=== PATIENT | male | born 1950 | race Caucasian/White ===

== ENCOUNTER 2019-08-21 00:14 | Day surgery (SDC) | payer MEDICARE, OTHER, SELFPAY ==
[2019-08-20 16:56] VITALS: BMI 20.9
[2019-08-21] VITALS (9 sets, daily range): BP systolic 81–145; BP diastolic 53–95; PULSE 46–74; RESP 14–22; TEMP 36.3; O2SAT 93–98; BMI 22.1
--- NOTE | 2019-08-21 07:00 | ECG_ITS ---
Measurements Intervals [place] Rate: 67 P: SD: 0 QRS: 12 QRSD: 89 T: 58 QT: 372 QTc: 394 Interpretive Statements ATRIAL FIBRILLATION BASELINE ARTIFACT- II, III, AVR, AVF, V3, V6 ABNORMAL ECG Electronically Signed On 08-21-2019 6:59:49 LIFE INSURANCE AGENT by Ulices Gao D.O.
[2019-08-21 07:26] LABS: Blood Urea Nitrogen 19 mg/dL (9-20); Calcium 9.3 mg/dL (8.4-10.2); Carbon Dioxide 27 mmol/L (22-30); Chloride 99 mmol/L (98-107); Estimated CRCL calculation 53 ml/min; Estimated Glomerular Filt Rate 60; Glucose 96 mg/dL (75-110); Magnesium 1.5 mg/dL (1.6-2.3); Potassium 4.1 mmol/L (3.4-5.0); Sodium 135 mmol/L (137-145)
--- NOTE | 2019-08-21 08:01 | SUR.PREOP ---
0700: ARRIVES TO [facility] 7 W/ AT SIDE FOR SCHEDULED JUANITO W/ CARDIOVERSION W/ DR. VILLELA. A&OX3, GAIT STEADY, DENIES CP OR SOB. ORIENTED TO ROOM AND PROCEDURE. QUESTIONS ANSWERED. PRE EKG COMPLETED AND SHOWS AFIB. IV STARTED, LABS SENT, VS OBTAINED, CONSENT SIGNED. WILL MONITOR. 0800: MAG LEVEL 1.5. CALLED TO DR. VILLELA BY KATIE Trevino RN. ORDERS RECEIVED TO REPLETE MAGNESIUM IV.
[2019-08-21] MEDS: MAGNESIUM SULF 2 GM/WATER 50ML 2 GM/50 ML BAG IVPB (08:03)
--- NOTE | 2019-08-21 08:17 | ECHO_ITS ---
Patient Info Name: Chilo Cross Age: 69 years : 1950 Gender: Male Ht: 72 in Wt: 163 lbs BSA: 1.94 m2 HR: 83 bpm BP: 115 / 83 mmHg Heart Rhythm: Atrial Fibrillation Technical Quality: Good Exam Date: 08/21/2019 9:15 AM Exam Location: [facility] Patient Status: Outpatient Admit Date: 08/21/2019 Staff Ordering Physician: Ulices Gao DO Steward/Stewardess [employer] Class: Frank Mack RDCS Attending Provider: Ulices Gao DO Referring Physician: Murray BORREGO; Exam Type: CA echo transesophageal Study Info Indications I48.1 - Persistent atrial fibrillation Complete two-dimensional, color flow and Doppler transesophageal study is performed. Agitated saline study performed. Contrast/Agitated Saline Contrast/Ag. Saline: Agitated Saline Amount: 9.00 ml Administered By: Patrizia Miramontes RN History/Risk Factors Atrial Fibrillation. Procedure Details Risks/benefits/alternative treatment discussed with patient and he gave informed consent. After conscious sedation was adequet with Fentanyl 50 mcg and Versed 2 mg IV, JUANITO probe advanced to posterior oropharynx and he swallowed probe without incident. After images were obtained and agitated saline administered to check interatrial septum, probe withdrawn. No blood noted on probe tip. Patient tolerated procedure well with no complications. Summary 1. Left ventricular systolic function is mildly reduced with an ejection fraction 45-50% by visual inspection. 2. Left ventricular chamber dimension is normal. 3. There is mildly increased left ventricular wall thickness. 4. Diastolic function is not assessed. 5. Right ventricular systolic function is mildly reduced. 6. Right ventricular chamber dimension is mildly enlarged. 7. Left atrial chamber dimension is moderately enlarged. 8. Right atrial chamber dimension is moderately enlarged. 9. Several bubbles crossed from right atrium to left atrium suggesting ASD or PFO. 10. There is mild aortic valve regurgitation. Left Ventricle Left ventricular systolic function is mildly reduced with an ejection fraction 45-50% by visual inspection. Diastolic function is not assessed. Left ventricular chamber dimension is normal. There is mildly increased left ventricular wall thickness. Right Ventricle Right ventricular systolic function is mildly reduced. Right ventricular chamber dimension is mildly enlarged. Left Atria Left atrial chamber dimension is moderately enlarged. Right Atria Right atrial chamber dimension is moderately enlarged. Atrial Septum Several bubbles crossed from right atrium to left atrium suggesting ASD or PFO. Atrial Appendage There is no mass visualized in the left atrial appendage. Aortic Valve The aortic valve is trileaflet. There is no aortic valve stenosis. There is mild aortic valve regurgitation. Pulmonic Valve There is no pulmonic regurgitation. Mitral Valve There is no mitral valve stenosis. There is no mitral valve regurgitation. Tricuspid Valve There is no tricuspid valve regurgitation. Pericardium/Pleural There is no pericardial effusion. Inferior Vena Cava IVC is not well seen.. Aorta The aortic root size at the sinus of Valsalva is normal. Report Signatures
--- NOTE | 2019-08-21 09:32 | SUR.OPER ---
0915 dr peterson here 0923 sedation started 0927 probe inserted 0932 probe removed.
--- NOTE | 2019-08-21 09:37 | ECG_ITS ---
Measurements Intervals [place] Rate: 46 P: 61 CA: 220 QRS: -15 QRSD: 97 T: 32 QT: 445 QTc: 390 Interpretive Statements SINUS BRADYCARDIA WITH FIRST DEGREE AV BLOCK ABNORMAL ECG Electronically Signed On 08-21-2019 10:57:57 HEAD OF DATA by Ulices Gao D.O.
--- NOTE | 2019-08-21 10:42 | WPDCARDVER ---
Cardioversion Cardioversion Date of procedure: 08/21/19 Procedure: DC Cardioversion Indications: Persistent symptomatic atrial fibrillation Sedation: Sedation with Fentanyl 50 mcg and Versed 5 mg IV given Findings: Risks/benefits/alternative treatment discussed with patient and he is agreeable to JUANITO/Cardioversion. Baseline HR 65-70 bpm in atrial fibrillation and BP 122/80 mmHg. After JUANITO performed which showed no INGA or LA thrombus, patient was adequately sedated. Defibrillator pads on anterior and posterior chest. 200 J biphasic synchronized energy administered and it restored sinus rhythm. Patient tolerated procedure well without complications. HR is 47-50 bpm and BP 125/70 mmHg. Conclusion: 1. Successful DC cardioversion from atrial fibrillation to sinus rhythm.
--- NOTE | 2019-08-21 11:06 | SUR.PHASEII ---
DETAILED WRITTEN AND VERBAL DISCHARGE INSTRUCTIONS REVIEWED W PATIENT AND AT BEDSIDE. BOTH VERBALIZE UNDERSTANDING.IV DC'D. PATIENT TAKEN OUT IN WHEELCHAIR.
== END 2019-08-21 11:09 | disposition home or self-care (01) ==
PROVIDERS: PCP Family Medicine; Visit Provider Internal Medicine Cardiovascular Disease
PROC: 5A2204Z Restoration of Cardiac Rhythm, Single (ICD-10-PCS; principal; 2019-08-21 08:00)
PROC: (CPT 93312; 2019-08-21 08:00)
DX: I48.19 Other persistent atrial fibrillation (principal); I35.1 Nonrheumatic aortic (valve) insufficiency; J44.9 Chronic obstructive pulmonary disease, unspecified; I50.22 Chronic systolic (congestive) heart failure; I13.0 Hypertensive heart and chronic kidney disease with heart failure and stage 1 through stage 4 chronic kidney disease, or unspecified chronic kidney disease; N18.3 Chronic kidney disease, stage 3 (moderate); E78.5 Hyperlipidemia, unspecified; I25.2 Old myocardial infarction; M81.0 Age-related osteoporosis without current pathological fracture; E55.9 Vitamin D deficiency, unspecified; F17.210 Nicotine dependence, cigarettes, uncomplicated; Z79.01 Long term (current) use of anticoagulants
CPT/HCPCS: 36415; 80048; 83735; 92960; 93005; 93312; 93320; 93325; J2250; J3010; J3475; J7040

== ENCOUNTER 2019-09-26 11:23 | Outpatient (CLI) | payer MEDICARE, SELFPAY ==
[2019-09-26 12:50] LABS: Prostate Specific Antigen 8.8 ng/mL (< OR = 4.0)
== END 2019-09-26 11:24 | disposition home or self-care (01) ==
LOC: CHSLAB 11:26
PROVIDERS: PCP Family Medicine; Visit Provider Urology
DX: R97.20 Elevated prostate specific antigen [PSA] (principal)
CPT/HCPCS: 36415; 84153

== ENCOUNTER 2019-10-12 14:34 | Outpatient (CLI) | payer MEDICARE, OTHER, SELFPAY ==
--- NOTE | ~2019-10-12 | US_ITS ---
EXAMINATION: US art doppler w press LE BI EXAM DATE: 10/12/2019 15:36 INDICATION: Bilateral leg claudication. Claudication at one block. TECHNIQUE: Segmental pressures and plethysmographic and Doppler waveforms of the brachial and lower e xtremity arteries were obtained. There is no prior study for comparison. FINDINGS: Right and left brachial artery pressures of 142 mm Hg and 148 mm Hg, respectively, are concordant (no rmal difference <= 30 mmHg). The right and left thigh-brachial pressure indices are 0.69, 0.70, resp ectively (normal > 1.2). RIGHT LEG: The ankle-brachial index (ABBIE) is 0.51 (normal >= 0.9-1). The great toe-brachial index (TBI) is: no right toe signal (normal >= 0.65). The lower extremity ratios, segmental pressure gradients as follows; Proximal superficial femoral artery:- 0.69 (102 mmHg). Distal superficial femoral artery: ----- 0.72 (107 mmHg). Popliteal: 0.57 (85 mmHg). Dorsalis pedis: 0.49 (72 mmHg). Posterior tibial: 0.51 (75 mmHg). (Normal gradients <= 20-30 mmHg between adjacent levels on the same leg or the same levels on the two legs). Arterial waveforms are monophasic. LEFT LEG: The ankle-brachial index (ABBIE) is 0.70 (normal >= 0.9-1). The great toe-brachial index (TBI) is 0.48 (normal >= 0.65). The lower extremity ratios, segmental pressure gradients as follows; Proximal superficial femoral artery:- 0.70 (104 mmHg). Distal superficial femoral artery: ----- 0.89 (132 mmHg). Popliteal: 0.93 (137 mmHg). Dorsalis pedis: 0.71 (105 mmHg). Posterior tibial: 0.75 (111 mmHg). (Normal gradients <= 20-30 mmHg between adjacent levels on the same leg or the same levels on the two legs). Arterial waveforms are biphasic. IMPRESSION: 1. Right ankle-brachial index 0.51, moderately decreased. 2. Left ankle-brachial index 0.75, mildly decreased. 3. Segmental pressures as above. Reviewed, dictated and finalized at location A. MULE WORKER
== END 2019-10-12 14:35 | disposition home or self-care (01) ==
LOC: ANHIMG 14:39
PROVIDERS: PCP Family Medicine; Visit Provider Family Medicine
DX: I73.9 Peripheral vascular disease, unspecified (principal)
CPT/HCPCS: 93923

== ENCOUNTER 2019-11-06 12:22 | Outpatient (CLI) | payer MEDICARE, SELFPAY ==
[2019-11-06 13:26] LABS: Prostate Specific Antigen 4.8 ng/mL (< OR = 4.0)
== END 2019-11-06 12:23 | disposition home or self-care (01) ==
PROVIDERS: PCP Urology; Visit Provider Urology
DX: R97.20 Elevated prostate specific antigen [PSA] (principal)
CPT/HCPCS: 36415; 84153

== ENCOUNTER 2020-02-20 08:59 | Outpatient (CLI) | payer MEDICARE, OTHER, SELFPAY ==
--- NOTE | 2020-02-25 13:56 | WPDPFTINT ---
PFT Interpretation PFT Interpretation: DOS: 02/20/2020 REQUESTING: Dr Carmona REASON FOR TESTING: shortness of breath PULMONARY FUNCTION TESTS Results are reliable and reproducible. Spirometry: FEV1 is 54%, moderately decreased. FVC is 81% normal. FEV1% is decreased consistent with airflow obstruction. No change with bronchodilator. Lung volumes: Not performed due to technical issue with gas supply in the PFT lab. Diffusion: DLCO 73%, mildly decreased. Flow volume loop: Severe scooping of the expiratory limb. IMPRESSION: Moderate obstructive ventilatory impairment without response to bronchodilator, mild diffusion impairment. Lung volumes were not obtained due to technical problems with the gas supply in the PFT lab. This pattern appears consistent with emphysema. Lack of response to bronchodilators should not preclude use if clinically indicated. Stephani Carmona MD
== END 2020-02-20 09:00 | disposition home or self-care (01) ==
PROVIDERS: PCP Family Medicine; Visit Provider Internal Medicine Critical Care Medicine
DX: J44.9 Chronic obstructive pulmonary disease, unspecified (principal); R94.2 Abnormal results of pulmonary function studies
CPT/HCPCS: 94060; 94729

== ENCOUNTER 2020-05-09 10:06 | Outpatient (CLI) | payer MEDICARE, SELFPAY ==
[2020-05-09 11:18] LABS: Alanine Aminotransferase 18 U/L (16-63); Albumin Level 3.7 g/dL (3.4-5.0); Alkaline Phosphatase 128 U/L (46-116); Anion Gap 7 mmol/L (8-16); Aspartate Amino Transferase 13 U/L (15-37); Bilirubin,Total 0.7 mg/dL (0.00-1.00); Blood Urea Nitrogen 15 mg/dL (7-18); Calcium 9.2 mg/dL (8.5-10.1); Carbon Dioxide 30 mmol/L (21-32); Chloride 101 mmol/L (98-108); Cholesterol 174 mg/dL (0-200); Estimated Glomerular Filt Rate 49; Glucose 98 mg/dL (70-99); HDL Direct 44 mg/dL (40-60); LDL Cholesterol Calculated 115 mg/dL (<130); Magnesium 1.7 mg/dL (1.8-2.4); Osmolality Calculated 286 mOsm/kg (285-295); Potassium 4.6 mmol/L (3.5-5.1); Sodium 138 mmol/L (136-145); Total Protein 6.5 g/dL (6.4-8.2); Triglycerides 76 mg/dL (0-150)
== END 2020-05-09 10:07 | disposition home or self-care (01) ==
LOC: CHSLAB 10:09
PROVIDERS: PCP Family Medicine; Visit Provider Internal Medicine Cardiovascular Disease
DX: E78.5 Hyperlipidemia, unspecified (principal)
CPT/HCPCS: 36415; 80053; 80061; 83735

== ENCOUNTER 2020-11-07 10:20 | Outpatient (CLI) | payer MEDICARE, OTHER, SELFPAY ==
--- NOTE | ~2020-11-07 | CT_ITS ---
EXAMINATION: CT lung screening DATE: 11/07/2020 10:37 INDICATION: Personal history of tobacco dependence TECHNIQUE: Computed tomography (CT) of the chest was performed without intravenous contrast. The dose -length product was 92.34 mGy-cm. Automated exposure control and iterative reconstruction technique w ere employed. COMPARISON: CT dated 03/21/2019 and 07/14/2016 FINDINGS: Severe emphysema with chronic scarring of the right upper lobe. No significant change to de nsely calcified 2 cm nodule right upper lobe, likely benign calcified granuloma. No significant pleur al or pericardial effusion. Heart size is normal. Mild atherosclerosis of the aorta and coronary [place]. The upper abdomen is unremarkable. There is scoliosis. Severe thoracolumbar spondylosis with mi ld chronic anterior wedging of multiple vertebral bodies. No new pulmonary nodules or masses. IMPRESSION: 1. Lung-RADS category 2: Benign appearance or behavior. Continue annual screening with noncontrast lo w-dose chest CT in 12 months. Reviewed, dictated and finalized at location B. IMPRESSION: 1. Lung-RADS category 2: Benign appearance or behavior. Continue annual screeni ng with noncontrast low-dose chest CT in 12 months.
== END 2020-11-07 10:21 | disposition home or self-care (01) ==
LOC: CHSIMG 10:24
PROVIDERS: PCP Family Medicine; Visit Provider Nurse Practitioner Family
DX: Z12.2 Encounter for screening for malignant neoplasm of respiratory organs (principal); Z87.891 Personal history of nicotine dependence
CPT/HCPCS: 71271

== ENCOUNTER 2020-12-21 09:32 | Emergency (ER) | payer MEDICARE, OTHER, SELFPAY ==
--- NOTE | ~2020-12-21 | XR_ITS ---
XR chest 2V DATE: 12/21/2020 10:37 INDICATION: Shortness of breath TECHNIQUE: 2 views, PA and lateral projections COMPARISON: 11/07/2020 CT lung screening 07/06/2018 PA and lateral chest FINDINGS: Severe emphysema is again noted. Right upper lobe scarring is again noted. Probably calcified 2 cm right upper lobe nodule, likely due to old granulomatous disease. Prominent central pulmonary artery suggesting pulmonary hypertension. No active pulmonary infiltrate or consolidation, pleural effusion or pulmonary vascular congestion or pneumothorax is evident. Diffuse osteopenia. Thoracolumbar scoliosis. IMPRESSION: Emphysema with pulmonary hypertension Chronic right upper lobe scarring No active disease or significant change since 07/06/2018 Reviewed, dictated and finalized at location A.
[2020-12-21 09:35] VITALS: BP 160/83; PULSE 100; RESP 17; TEMP 36.6; O2SAT 100
--- NOTE | 2020-12-21 10:02 | ECG_ITS ---
Measurements Intervals [place] Rate: 91 P: MT: 0 QRS: -26 QRSD: 104 T: 76 QT: 323 QTc: 398 Interpretive Statements ATRIAL FIBRILLATION ANTEROSEPTAL INFARCT, AGE INDETERMINATE CONSIDER INFERIOR INFARCT, AGE INDETERMINATE BASELINE ARTIFACT- I, II, III, V1-V3 ABNORMAL ECG Electronically Signed On 12-22-2020 7:44:46 CDT by Ulices Gao D.O.
[2020-12-21] MEDS: DEXAMETHASONE SOD PHOS INJ 4 MG/ML VIAL 10 MG IV PUSH (10:10)
[2020-12-21 10:13] VITALS: PULSE 88; RESP 17; O2SAT 100
[2020-12-21] MEDS: IPRATROPIUM 0.5 MG/ALBUTEROL SULFATE 2.5 MG AMPUL.NEB 3 ML INHALATION (10:13)
[2020-12-21 10:22] VITALS: PULSE 87; O2SAT 100
[2020-12-21 10:22] LABS: Basophils Absolute Auto 0.12 K/mm3 (0.00-0.10); Basophils Percent Auto 1.3 % (0.0-1.0); Eosinophils Absolute Auto 0.29 K/mm3 (0.02-0.50); Eosinophils Percent Auto 3.1 % (1.0-6.0); Hematocrit 44.5 % (37.0-46.0); Hemoglobin 14.5 g/dL (12.4-15.3); Immature Granulocyte Absolute 0.04 K/mm3 (0.00-0.00); Immature Granulocyte Percent A 0.4 % (0.0-0.0); Lymphocytes Absolute Auto 1.45 K/mm3 (1.10-4.50); Lymphocytes Percent Auto 15.3 % (18.0-42.0); Mean Corpuscular HGB Conc 32.6 g/dL (32.0-36.0); Mean Corpuscular Hemoglobin 29.4 pg (27.0-31.0); Mean Corpuscular Volume 90.3 fL (78.0-102.0); Mean Platelet Volume 9.7 fl (8.7-11.0); Monocytes Absolute Auto 0.61 K/mm3 (0.10-0.90); Monocytes Percent Auto 6.4 % (2.0-11.0); Neutrophils Percent Auto 73.5 % (50.0-70.0); Platelet Count Result 206 K/mm3 (150-420); Red Blood Count 4.93 M/mm3 (4.70-6.10); Red Cell Distribution Width 13.4 % (11.6-14.4); White Blood Count 9.5 K/mm3 (4.8-10.8)
[2020-12-21 10:28] VITALS: O2SAT 100
[2020-12-21 10:45] LABS: Alanine Aminotransferase 16 U/L (16-63); Albumin Level 3.3 g/dL (3.4-5.0); Alkaline Phosphatase 112 U/L (46-116); Anion Gap 8 mmol/L (8-16); Aspartate Amino Transferase 16 U/L (15-37); Bilirubin,Total 0.6 mg/dL (0.00-1.00); Blood Urea Nitrogen 13 mg/dL (7-18); Calcium 9.3 mg/dL (8.5-10.1); Carbon Dioxide 29 mmol/L (21-32); Chloride 100 mmol/L (98-108); Estimated Glomerular Filt Rate 56; Glucose 104 mg/dL (70-99); NT Pro B Type Natriuretic Pept 5834 pg/mL (0-125); Osmolality Calculated 284 mOsm/kg (285-295); Potassium 4.2 mmol/L (3.5-5.1); Sodium 137 mmol/L (136-145); Total Protein 6.5 g/dL (6.4-8.2)
--- NOTE | 2020-12-21 11:49 | ED.SOB ---
HPI - SOB/Dyspnea General Chief Complaint: Shortness of Breath/Dyspnea Stated Complaint: sob Time Seen by Provider: 12/21/20 09:45 Source: patient and family Mode of arrival: ambulatory History of Present Illness HPI Narrative: Patient presents with mild SOB, which has been ongoing since last am, starting about 2:30 am. This has been associated with inability to sleep. He has denied any shest pain with this or any epigastric pain. He has had episodes of what sounds like PND. Shortness of breath has been moderately severe, ongoing not fully relieved by resent steroids or nebulizers. THis shortness of breath has increased over a period of weeks he says. MD elicited complaint: shortness of breath Pertinent past history: COPD, congestive heart failure and other (atrial fibrillation) Onset (ago): hour(s) Timing: constant Severity: moderate Exacerbating factors: lying flat Relieving factors: oxygen Known history of: COPD Associated symptoms: denies other symptoms Treatment prior to arrival: bronchodilator Related Data Home Medications Medication Instructions Recorded Confirmed ibandronate [Boniva] 150 mg PO MONTHLY 06/24/19 12/21/20 Eliquis 5 mg PO DAILY 12/21/20 12/21/20 [id number] 1 inh INHALATION BID 12/21/20 12/21/20 [Trelegy Ellipta] pravastatin 10 mg PO DAILY 12/21/20 12/21/20 Allergies Allergy/AdvReac Type Severity Reaction Status Date / Time lisinopril Allergy Unknown Cough Verified 11/05/20 09:30 Review of Systems Constitutional: Constitutional: Reports no additional constitutional complaints Eyes: Eyes: Reports no additional eye complaints ENT: Reports system reviewed and no additional complaints, except as documented Cardiovascular: Cardiovascular: Reports no additional cardiovascular complaints Respiratory: Respiratory: Reports no additional respiratory complaints Gastrointestinal: Gastrointestinal: Reports no additional gastrointestinal complaints Genitourinary: Genitourinary: Reports no additional male genitourinary complaints Musculoskeletal: Musculoskeletal: Reports no additional musculoskeletal complaints Integumentary/Breasts: Skin/Breast: Reports system reviewed and no additional complaints, except as docu Neurologic: Reports system reviewed and no additional complaints, except as documented Psychiatric: Psychiatric: Reports no additional psychiatric complaints Endocrine: Endocrine: Reports no additional endocrine complaints Hematologic/Lymphatic: Hematologic/Lymphatic: Reports no additional hematologic/lymphatic complaints Allergic/Immunologic: Allergic/Immunologic: Reports no additional allergic/immunologic complaints [facility] Past Medical History Medical History A-fib Advanced COPD Chronic systolic heart failure Echocardiogram March 2019 demonstrated EF of 45-50% with moderate right atrial larger mild aortic valve and mitral valve regurgitation and [id number] tricuspid regurgitation CKD (chronic kidney disease) stage 3, GFR 30-59 ml/min Dyslipidemia Elevated PSA Elevated troponin Essential (primary) hypertension (11/02/16) Kyphosis (acquired) (postural) Due to osteoporosis Myocardial infarction Evidence of infarct on stress test from September 2018 without reversible ischemia EF of 37% Nicotine dependence, cigarettes, uncomplicated Osteoporosis Persistent atrial fibrillation Rectal polyp Vitamin D deficiency, unspecified Surgical History Surgical History History of vasectomy Hx of cataract surgery Hx of tonsillectomy Family History Family History Mother Patient's mother is Family history of malignant neoplasm Social History Social History Social History: He has 2 adult children who are healthy. He has smoked since he was 20 yea
[2020-12-21 12:17] VITALS: BP 137/83; PULSE 101; O2SAT 97
== END 2020-12-21 12:17 | disposition home or self-care (01) ==
PROVIDERS: Emergency Provider Emergency Medicine; PCP Family Medicine
DX: J44.9 Chronic obstructive pulmonary disease, unspecified (principal); I48.91 Unspecified atrial fibrillation; E78.5 Hyperlipidemia, unspecified; F17.200 Nicotine dependence, unspecified, uncomplicated
CPT/HCPCS: 36415; 71046; 80053; 83880; 84484; 85025; 93005; 94640; 96374; 99283; 99284; J1100

== ENCOUNTER → 2021-05-22 01:03 | Day surgery (SDC) | payer MEDICARE, OTHER, SELFPAY ==
[2021-05-21 12:43] VITALS: BMI 21.6
[2021-05-22] VITALS (10 sets, daily range): BP systolic 111–150; BP diastolic 68–92; PULSE 52–85; RESP 15–22; TEMP 36.2; O2SAT 94–100; BMI 21.0
[2021-05-22 09:30] LABS: Anion Gap 9 mmol/L (8-16); Blood Urea Nitrogen 21 mg/dL (9-20); Calcium 9.8 mg/dL (8.4-10.2); Carbon Dioxide 33 mmol/L (22-30); Chloride 99 mmol/L (98-107); Estimated CRCL calculation 48 ml/min; Estimated Glomerular Filt Rate 55; Glucose 105 mg/dL (65-110); INR 0.9; Potassium 3.7 mmol/L (3.4-5.0); Prothrombin Time 12.5 Seconds (11.1-14.7); Sodium 141 mmol/L (137-145)
[2021-05-22 09:34] LABS: Hematocrit 49.6 % (42.0-52.0); Mean Corpuscular HGB Conc 32.3 g/dl (32-36); Mean Corpuscular Hemoglobin 30.7 pg (26-34); Mean Platelet Volume 10.1 fl (7.4-10.4); Platelet Count Result 230 k/mm3 (150-375); Red Blood Count 5.22 M/mm3 (4.6-6.20); Red Cell Distribution Width 13.8 % (11.5-14.5); White Blood Count 11.7 K/mm3 (4.5-10.0)
--- NOTE | 2021-05-22 10:59 | WPDMODSED ---
Moderate Sedation Note-Pt Data Patient Data Diagnosis: Left ventricular systolic dysfunction peripheral vascular disease smoking persistent atrial fibrillation Present Complaint: exertional dyspnea Procedure to be performed/Plan: left heart catheterization /possible PCI Allergies Allergy/AdvReac Type Severity Reaction Status Date / Time lisinopril Allergy Unknown Cough Verified 05/04/21 13:24 Sulfa (Sulfonamide Allergy Cough Verified 05/21/21 12:37 Antibiotics) Home Medications Medication Instructions Recorded Confirmed Type albuterol sulfate 90 mcg/actuation 2 puff INHALATION QID PRN #18 gm 12/11/19 05/21/21 Rx aerosol inhaler tamsulosin 0.4 mg capsule 0.4 mg PO QAM 90 Days #90 cap 12/11/19 05/21/21 Rx Eliquis 5 mg PO DAILY 12/21/20 05/21/21 History pravastatin 10 mg PO DAILY 12/21/20 05/21/21 History ibandronate 150 mg tablet 150 mg PO MONTHLY #3 tablet 12/30/20 05/21/21 Rx ipratropium 0.5 mg-albuterol 3 mg 3 ml INHALATION QID PRN #90 ml 01/16/21 05/21/21 Rx (2.5 mg base)/3 mL nebulization soln omeprazole 40 mg capsule,delayed 40 mg PO DAILY #90 cap 03/28/21 05/21/21 Rx release fluticasone fur. 100 mcg-umeclid 1 inh INHALATION DAILY #60 ea 04/01/21 05/21/21 Rx 62.5 mcg-vilant 25 mcg inhalat.powder furosemide 20 mg tablet 20 mg PO QAM #90 tablet 04/24/21 05/21/21 Rx losartan 25 mg tablet 25 mg PO DAILY #30 tablet 05/04/21 05/21/21 Rx metoprolol succinate 50 mg 50 mg PO DAILY #30 tablet 05/04/21 05/21/21 Rx tablet,extended release 24 hr Current Medications: Active Medications Sodium Chloride (Normal Saline Iv) 500 mls @ 100 mls/hr IV CONT .Q5H AMEE Sedation/Anesthesia: No previous sedation/anesthesia problems (including family history). [facility] Past Medical History Medical History A-fib Advanced COPD Chronic systolic heart failure Echocardiogram March 2019 demonstrated EF of 45-50% with moderate right atrial larger mild aortic valve and mitral valve regurgitation and [id number]-[id number] tricuspid regurgitation CKD (chronic kidney disease) stage 3, GFR 30-59 ml/min Dyslipidemia Elevated PSA Elevated troponin Essential (primary) hypertension (11/02/16) Kyphosis (acquired) (postural) Due to osteoporosis Myocardial infarction Evidence of infarct on stress test from September 2018 without reversible ischemia EF of 37% Nicotine dependence, cigarettes, uncomplicated Osteoporosis Persistent atrial fibrillation Rectal polyp Vitamin D deficiency, unspecified Surgical History Surgical History History of vasectomy Hx of cataract surgery Hx of tonsillectomy Family History Family History Mother Patient's mother is Family history of malignant neoplasm Social History Social History Social History: He has 2 adult children who are healthy. He has smoked since he was 20 years old and continues to smoke about half a pack of cigarettes per day. He drinks alcohol in moderation. He denies any illicit substance use. His primary care physician is Dr. Liliana May Smoking packs per day: 0.5 Smoking cigarettes per day: 10.0 Years smoked: 50 Smoking pack-years: 25.00 Smoking status: Current every day smoker Tobacco type: cigarettes Second hand tobacco smoke exposure: Yes Additional smoking assessment comments: has smoked up to 3ppd in the , his average is 1.5ppd. Alcohol intake: current Drinks per week: 2 Alcohol use details: rare Substance use: never Substance use type: does not use Living arrangements: with family Gender identity (if verbalized by the patient): Male Sexual Orientation (if Verbalized by the Patient): Straight or Heterosexual Spiritual care concerns: No Agree to blood products: Yes Mo
--- NOTE | 2021-05-22 11:03 | WPDCARDPROC ---
Cardiac Cath Procedure Note Date of procedure:: 05/22/21 Performing physician:: Kofi Umanzor MD Indication:: left ventricular systolic dysfunction persistent atrial fibrillation JASSO/fatigue COPD with chronic / ongoing cigarette smoking Brief clinical history:: this is a 71-year-old man who has been found in the last couple of years to have left ventricular systolic dysfunction and also an episode of atrial fibrillation. An attempt to restore sinus rhythm last year was successful but did not sustain. He has been left in chronic atrial fibrillation since then. He had a nuclear stress test suggesting evidence of a previous NV resulting in recommendation left heart catheterization. Systemic anticoagulation was stopped last week Procedure Procedure performed:: left ventriculogram coronary angiogram PCI(ROGER) to circumflex Angio-Seal to right femoral artery Sedation/Medication given:: fentanyl 50 mg Versed 2 mg case start time 10:10 a.m. case end time 10:53 a.m. sedation provided by Lula Mercer RN, trained observer Access site:: right femoral artery Estimated blood loss:: 15-20 cc Procedure note:: patient was brought to the cardiac catheterization lab in a postabsorptive state the right femoral triangle was prepped and draped in the usual fashion. Anesthesia was provided with 1% lidocaine infiltrated locally. Using the modified Seldinger technique a 5 [place] vascular sheath was placed into the right common femoral artery after this left heart catheterization was carried out I used a 5 [place] angled pigtail catheter to engage and inject the left ventricle in the SONG projection and to document left-sided hemodynamics. Following this I used a 5 [place] JR4 catheter to engage and inject the right coronary artery. The 5 [place] FL4 catheter nor the FL 3.5 would engage the left main coronary satisfactorily. I was able to engage and inject the left coronary using a 5 [place] AL1 catheter. Following this the cineangiograms were reviewed. PCI of the circumflex was recommended and carried out as detailed below. Prior to PCI 5 [place] sheath was changed over a guidewire for a 6 [place]. Patient received aspirin, 600 mg of clopidogrel and was anticoagulated with bolus and infusion of Angiomax for procedural anticoagulation. PCI was then carried out as detailed below. Following PCI an angiogram was done of the femoral artery through the sheath after which a 6 [place] Angio-Seal device was deployed with a good hemostatic result. 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 Findings:: Hemodynamics: Central aortic pressure is 128/60 left ventricle 128 over 0 end-diastolic of 11. No significant gradient on pullback across the aortic valve. Left ventricle: The LV is moderately dilated there is severe global systolic hypocontractility in all segments the global ejection fraction I would visually estimate to be about 25%. The left main coronary artery is short but nicely patent the left anterior descending is a moderate caliber artery extending down to around the apex also providing some of the inferior wall. The LAD has minimal luminal irregularities but no significant disease. The circumflex is a medium caliber artery giving rise to the marginal branches. The trunk of the circumflex has high-grade atherosclerotic stenosis of 90% in the midportion up this area of disease also includes a 60-70% lesion proximal to that. Distally the circumflex is free of significant disease. The right coronary artery is moderate caliber and dominant to the posterior circulation the right coronary artery has minimal irregularities but angiographically no significant disease. Intervention: The left coronary artery was engaged using a 6 [place] AL1 guiding catheter. The 0.014 BMW coronary guidewire was used to wire the circumflex without difficulty. The lesion w
--- NOTE | 2021-05-22 16:06 | SUR.PHASEII ---
patient d/c instructions given. iv d/c tip intact. patient's groin is wnl. dressing d/c/i soft and no hematoma noted. patient is able to ambulate around the room with out any difficulty. patient verbalizes understanding. called to update and she will be picking him up.
== END | disposition home or self-care (01) ==
PROVIDERS: PCP Family Medicine; Visit Provider Specialist
PROC: 4A023N7 Measurement of Cardiac Sampling and Pressure, Left Heart, Percutaneous Approach (ICD-10-PCS; CPT 93452; principal; 2021-05-22 10:00)
PROC: (CPT 92928; 2021-05-22 10:00)
DX: I25.10 Atherosclerotic heart disease of native coronary artery without angina pectoris (principal); R94.39 Abnormal result of other cardiovascular function study; I48.20 Chronic atrial fibrillation, unspecified; J44.9 Chronic obstructive pulmonary disease, unspecified; I13.0 Hypertensive heart and chronic kidney disease with heart failure and stage 1 through stage 4 chronic kidney disease, or unspecified chronic kidney disease; I50.22 Chronic systolic (congestive) heart failure; N18.30 Chronic kidney disease, stage 3 unspecified; E78.5 Hyperlipidemia, unspecified; I25.2 Old myocardial infarction; I08.3 Combined rheumatic disorders of mitral, aortic and tricuspid valves; M81.0 Age-related osteoporosis without current pathological fracture; E55.9 Vitamin D deficiency, unspecified; M40.209 Unspecified kyphosis, site unspecified; Z79.01 Long term (current) use of anticoagulants; Z79.51 Long term (current) use of inhaled steroids; F17.210 Nicotine dependence, cigarettes, uncomplicated
CPT/HCPCS: 36415; 80048; 85027; 85610; 93458; A9270; C1725; C1760; C1769; C1874; C1887; C1894; C9600; G0269; J0583; J1644; J2250; J3010; J7040

== ENCOUNTER 2021-05-25 14:01 | Outpatient (CLI) | payer MEDICARE, OTHER, SELFPAY ==
--- NOTE | 2021-05-25 14:05 | ECG_ITS ---
Measurements Intervals [place] Rate: 87 P: SC: 0 QRS: 63 QRSD: 86 T: 86 QT: 333 QTc: 402 Interpretive Statements ATRIAL FIBRILLATION VENTRICULAR PREMATURE COMPLEXES INCOMPLETE RIGHT BUNDLE BRANCH BLOCK BORDERLINE T WAVE ABNORMALITY- HIGH LATERAL LEADS BASELINE ARTIFACT- AVR, AVL, AVF ABNORMAL ECG Electronically Signed On 05-25-2021 14:38:01 CDT by Ulices Gao D.O.
== END 2021-05-25 14:02 | disposition home or self-care (01) ==
LOC: CHSCARD 14:05
PROVIDERS: PCP Family Medicine; Visit Provider Internal Medicine Cardiovascular Disease
DX: I48.91 Unspecified atrial fibrillation (principal); I48.92 Unspecified atrial flutter
CPT/HCPCS: 93005

== ENCOUNTER 2021-06-22 12:30 | Inpatient (IN) | payer MEDICARE, OTHER, SELFPAY ==
[2021-06-22] VITALS (13 sets, daily range): BP systolic 82–128; BP diastolic 43–82; PULSE 86–110; RESP 16–20; TEMP 36.8–36.9; O2SAT 95–100; BMI 20.7
--- NOTE | ~2021-06-22 | CT_ITS ---
EXAMINATION: CTA chest PE protocol EXAM DATE: 06/22/2021 13:53 INDICATION: Shortness of breath with some chest pain and elevated d-dimer. Cardiac stents placed a mo nth ago. TECHNIQUE: Spiral CTA of the chest (pulmonary arteries) was performed with 100 cc Omnipaque 350 intr avenous contrast injection. Images were acquired during the pulmonary arterial phase. Coronal maxi mum intensity projection 3D-reconstructions were created by the technologist on dedicated workstation . Axial, coronal and sagittal reformatted images were reviewed. The dose-length product (DLP) for t his examination was 273.58 mGy-cm. The exposure was tailored according to patient size (auto mA exp osure control), and iterative reconstruction (ASIR) was used as additional dose reduction technique. Comparison is made to prior examination from 11/07/2020. FINDINGS: There is loss of right upper lobe superior segmental pulmonary arterial enhancement, likel y chronic. There are no intraluminal filling defects within the pulmonary emboli, no evidence of acut e pulmonary embolism. No thoracic aortic dissection. There is severe emphysema. There is new left upper lobe subsegmental opacity which is predominantly linear, could be atelectasis , acute or resolving infectious process. There is right upper lobe granuloma with regions of coarse calcification. Linear right apical scarring. There is severe emphysema. Chronic hyperinflation. There are no pleural or pericardial effusions. Tracheobronchial tree is patent. There is aortopulmonar y window lymph node measuring 2.4 x 1.3 cm (in November measured 1.9 x 0.9 cm). There is no pneumothora x. Heart normal in size. Upper abdomen is unremarkable. There is mild to moderate thoracic sp ondylosis without osteoblastic or osteolytic lesions identified. IMPRESSION: 1. Decreased right upper lobe superior segmental pulmonary arterial attenuation, a chronic finding w hich could be scarring or sequela from prior pulmonary embolism. 2. No pulmonary arterial filling defects, no acute pulmonary emboli. 3. Development of subsegmental left upper lobe airspace disease, could be atelectasis, acute or suba cute infection. 4. Development of mildly enlarged aortopulmonary window lymph node probably reactive. 5. Severe emphysema. Hyperinflation. 6. Scattered postinfectious residua. Reviewed, dictated and finalized at location B. UP OPERATOR TOOL IMPRESSION: 1. Decreased right upper lobe superior segmental pulmonary arterial attenuatio n, a chronic finding which could be scarring or sequela from prior pulmonary em bolism. 2. No pulmonary arterial filling defects, no acute pulmonary emboli. 3. Development of subsegmental left upper lobe airspace disease, could be atel ectasis, acute or subacute infection. 4. Development of mildly enlarged aortopulmonary window lymph node probably re active. 5. Severe emphysema. Hyperinflation. 6. Scattered postinfectious residua.
--- NOTE | ~2021-06-22 | XR_ITS ---
EXAMINATION: XR chest 1V portable DATE: 06/22/2021 12:58 INDICATION: Left chest pain. TECHNIQUE: A single frontal view of the chest was obtained on 2 radiographs. COMPARISON: Chest 2 views 12/21/2020, 10/10/2009, Chest CT 11/07/2020 FINDINGS: The lungs are hyperexpanded with lucencies, consistent with emphysema. There is a chronic c alcified nodule in right upper lobe that may be a hamartoma or granulomatous disease. There are chron ic airspace opacities in right upper lobe, consistent with scarring. There are worsened airspace opac ities in left upper lobe. No pleural effusion or pneumothorax. The heart size is normal. There are ol d healed left rib fractures. IMPRESSION: 1. Worsened airspace opacities in left upper lobe, consistent with atelectasis/scarring versus pneumo floyd. 2. Emphysema. 3. Stable scarring in right lung upper lobe. Reviewed, dictated and finalized at location A. ERTY INSURANCE INSPECTOR IMPRESSION: 1. Worsened airspace opacities in left upper lobe, consistent with atelectasis/ scarring versus pneumonia. 2. Emphysema. 3. Stable scarring in right lung upper lobe.
--- NOTE | 2021-06-22 12:40 | ECG_ITS ---
Measurements Intervals [place] Rate: 112 P: HI: 0 QRS: 5 QRSD: 83 T: 69 QT: 289 QTc: 396 Interpretive Statements ATRIAL FIBRILLATION WITH RAPID VENTRICULAR RESPONSE NONSPECIFIC T-WAVE ABNORMALITY- HIGH LATERAL LEADS BASELINE ARTIFACT- I, II, III, AVR, AVL, AVF, V1-V3 ABNORMAL ECG Electronically Signed On 06-22-2021 15:14:07 BURGLAR ALARM INSPECTOR by Ulices Gao D.O.
[2021-06-22 12:57] LABS: Basophils Absolute Auto 0.06 K/mm3 (0.00-0.10); Basophils Percent Auto 0.4 % (0.0-1.0); Eosinophils Absolute Auto 0.07 K/mm3 (0.02-0.50); Eosinophils Percent Auto 0.4 % (1.0-6.0); Hematocrit 41.1 % (37.0-46.0); Hemoglobin 13.6 g/dL (12.4-15.3); Immature Granulocyte Absolute 0.08 K/mm3 (0.00-0.00); Immature Granulocyte Percent A 0.5 % (0.0-0.0); Lymphocytes Absolute Auto 1.16 K/mm3 (1.10-4.50); Lymphocytes Percent Auto 6.9 % (18.0-42.0); Mean Corpuscular HGB Conc 33.1 g/dL (32.0-36.0); Mean Corpuscular Hemoglobin 31.1 pg (27.0-31.0); Mean Corpuscular Volume 93.8 fL (78.0-102.0); Mean Platelet Volume 9.9 fl (8.7-11.0); Monocytes Absolute Auto 1.27 K/mm3 (0.10-0.90); Monocytes Percent Auto 7.5 % (2.0-11.0); Neutrophils Absolute Auto 14.2 K/mm3 (1.7-7.2); Neutrophils Percent Auto 84.3 % (50.0-70.0); Platelet Count Result 220 K/mm3 (150-420); Red Blood Count 4.38 M/mm3 (4.70-6.10); Red Cell Distribution Width 13.5 % (11.6-14.4); White Blood Count 16.8 K/mm3 (4.8-10.8)
--- NOTE | 2021-06-22 13:00 | PC.NURSE ---
Pt BP noted to be low. Pt denies any symptoms or chest pain at this time.
[2021-06-22 13:13] LABS: D Dimer 0.52 mg/L (0.19-0.50)
[2021-06-22 13:14] LABS: Partial Thromboplastin Time 32.5 SEC (23.90-30.70)
--- NOTE | 2021-06-22 13:14 | PC.NURSE ---
[place] from lab called with D-Dimer of 0.52. Dr. Oro notified.
[2021-06-22 13:15] LABS: INR 1.2
[2021-06-22 13:20] LABS: Alanine Aminotransferase 23 U/L (16-63); Albumin Level 3.1 g/dL (3.4-5.0); Alkaline Phosphatase 116 U/L (46-116); Anion Gap 10 mmol/L (8-16); Aspartate Amino Transferase 21 U/L (15-37); Bilirubin,Total 1.4 mg/dL (0.00-1.00); Blood Urea Nitrogen 21 mg/dL (7-18); Calcium 8.6 mg/dL (8.5-10.1); Carbon Dioxide 27 mmol/L (21-32); Chloride 99 mmol/L (98-108); Estimated CRCL calculation 39 ml/min; Estimated Glomerular Filt Rate 43; Glucose 108 mg/dL (70-99); Lipase 81 U/L (73-393); NT Pro B Type Natriuretic Pept 2537 pg/mL (0-125); Osmolality Calculated 286 mOsm/kg (285-295); Potassium 4.2 mmol/L (3.5-5.1); Sodium 136 mmol/L (136-145); Total Protein 6.7 g/dL (6.4-8.2)
[2021-06-22] MEDS: SODIUM CHLORIDE 0.9% IV 1,000 ML 999 ML IV CONT (13:20)
[2021-06-22 13:23] LABS: Troponin I 12.2 ng/L (0.00-60.4)
[2021-06-22 14:05] LABS: Lactic Acid Reflex 1.6 mmol/L (0.4-2.0)
--- NOTE | 2021-06-22 14:07 | ED.CHESTPAIN ---
HPI - Chest Pain General Chief Complaint: Chest Pain Stated Complaint: CHEST PAIN Source: patient Mode of arrival: wheelchair Limitations: no limitations History of Present Illness HPI narrative: this is a 71-year-old gentleman that presents after he was on a treadmill and cardiac rehab and felt a sharp chest pain the left side of his chest that he described as sharp pain with some mild shortness of breath during work and treadmill with no diaphoresis no nausea vomiting, the patient was brought over immediately to the ER and while at rest his chest discomfort had gone down to about a 2/10. Patient has a history of CHF with a echo performed back in showed systolic dysfunction with an ejection fraction of 30%, recently had cardiac catheterization on May 22, 2021 which showed stenosis of the cervical circumflex artery and was stented. Patient with a history of a COPD is a current smoker low states that he has noted, history of atrial fibrillation hyperlipidemia hypertension. MD complaint: chest pain and chest discomfort Pertinent past history: coronary artery disease and LEGISLATIVE ADVOCATE Onset (ago): minute(s) Timing of current episode: now resolved Onset: during exertion Pain location: left chest Pain radiation: none Pain scale (0-10): 8 ( now down to about 1 out of 10 to an ache at 0/10) Quality: aching Relieving factors: rest Exacerbating factors: exertion Context: recent illness Related Data Home Medications Medication Instructions Recorded Confirmed pravastatin 10 mg PO DAILY 12/21/20 06/19/21 apixaban 5 mg tablet 5 mg PO BID 05/25/21 06/19/21 Allergies Allergy/AdvReac Type Severity Reaction Status Date / Time lisinopril Allergy Unknown Cough Verified 06/22/21 12:55 Sulfa (Sulfonamide Allergy Cough Verified 06/22/21 12:55 Antibiotics) Review of Systems Review of Systems: All systems reviewed & are unremarkable except as noted in HPI and below PMFSH Past Medical History Medical History A-fib Advanced COPD Chronic systolic heart failure Echocardiogram March 2019 demonstrated EF of 45-50% with moderate right atrial larger mild aortic valve and mitral valve regurgitation and [id number] tricuspid regurgitation CKD (chronic kidney disease) stage 3, GFR 30-59 ml/min Dyslipidemia Elevated PSA Elevated troponin Essential (primary) hypertension (11/02/16) Kyphosis (acquired) (postural) Due to osteoporosis Myocardial infarction Evidence of infarct on stress test from September 2018 without reversible ischemia EF of 37% Nicotine dependence, cigarettes, uncomplicated Osteoporosis Persistent atrial fibrillation Rectal polyp Vitamin D deficiency, unspecified Surgical History Surgical History History of vasectomy Hx of cataract surgery Hx of tonsillectomy Family History Family History Mother Patient's mother is Family history of malignant neoplasm Social History Social History Social History: He has 2 adult children who are healthy. He has smoked since he was 20 years old and continues to smoke about half a pack of cigarettes per day. He drinks alcohol in moderation. He denies any illicit substance use. His primary care physician is Dr. Liliana May Smoking packs per day: 0.5 Smoking cigarettes per day: 10.0 Years smoked: 50 Smoking pack-years: 25.00 Smoking status: Current every day smoker Tobacco type: cigarettes Second hand tobacco smoke exposure: Yes Additional smoking assessment comments: has smoked up to 3ppd in the , his average is 1.5ppd. Alcohol intake: current Drinks per week: 2 Alcohol use details: rare Substance use: never Substance use type: does not use Gender identity (if verbalized by the patient): Male Sexual Orien
--- NOTE | 2021-06-22 14:23 | PC.NURSE ---
Floor and registration notified of pt admission status. Room assignment received - .
--- NOTE | 2021-06-22 15:05 | PC.NURSE ---
Phone report called to KIA Rubio on floor.
--- NOTE | 2021-06-22 15:10 | ADMGEN ---
This patient, Chilo Cross, was admitted to 2nd Floor Room 203-2 for pneumonia and chest pain. Patient/family oriented to hospital policies and general routines including ID bracelet, bed and alarms, visiting hours, pain management, procedures, bathroom and other care routines, personal items, smoking policy, room service/diet, and visiting hours. Information on how to activate the Rapid Response Team has been discussed. Patient/Family are encouraged to report perceived risks to care and to ask questions if they do not understand what they are told or what they should do.
[2021-06-22] MEDS: IPRATROPIUM 0.5 MG/ALBUTEROL SULFATE 2.5 MG AMPUL.NEB 3 ML INHALATION (16:20)
[2021-06-22 19:46] LABS: Troponin I 13.4 ng/L (0.00-60.4)
[2021-06-22] MEDS: APIXABAN 2.5 MG TABLET 5 MG PO (20:24)
[2021-06-22] MEDS: PANTOPRAZOLE 40 MG TABLET PO (20:24)
--- NOTE | 2021-06-22 20:30 | PC.NURSE ---
Patient BP registered 86/59 with dynomat. taken manually registered as 102/60. Denies light headedness or dizziness.
--- NOTE | 2021-06-22 20:35 | PC.NURSE ---
Patient up ad gregorio in room . Denies chest pain at this time. Alert and oriented x3
--- NOTE | 2021-06-22 21:57 | PC.NURSE ---
Patient provided bed time snack.
[2021-06-22 23:42] LABS: Troponin I 13.6 ng/L (0.00-60.4)
[2021-06-23] VITALS (14 sets, daily range): BP systolic 82–116; BP diastolic 48–68; PULSE 72–103; RESP 18–20; TEMP 36.2–37.4; O2SAT 93–100
--- NOTE | 2021-06-23 03:20 | PC.NURSE ---
called doctor to inform of episode of sinus tach while sleeping-HR up to 12. Also reported low BP result
[2021-06-23] MEDS: IPRATROPIUM 0.5 MG/ALBUTEROL SULFATE 2.5 MG AMPUL.NEB 3 ML INHALATION ×3 (03:51→17:52)
[2021-06-23 05:30] LABS: Basophils Absolute Auto 0.08 K/mm3 (0.00-0.10); Basophils Percent Auto 0.6 % (0.0-1.0); Eosinophils Absolute Auto 0.48 K/mm3 (0.02-0.50); Eosinophils Percent Auto 3.8 % (1.0-6.0); Hematocrit 37.7 % (37.0-46.0); Hemoglobin 12.2 g/dL (12.4-15.3); Immature Granulocyte Absolute 0.06 K/mm3 (0.00-0.00); Immature Granulocyte Percent A 0.5 % (0.0-0.0); Lymphocytes Absolute Auto 1.31 K/mm3 (1.10-4.50); Lymphocytes Percent Auto 10.4 % (18.0-42.0); Mean Corpuscular HGB Conc 32.4 g/dL (32.0-36.0); Mean Corpuscular Hemoglobin 30.4 pg (27.0-31.0); Monocytes Absolute Auto 1.12 K/mm3 (0.10-0.90); Monocytes Percent Auto 8.9 % (2.0-11.0); Neutrophils Absolute Auto 9.5 K/mm3 (1.7-7.2); Neutrophils Percent Auto 75.8 % (50.0-70.0); Platelet Count Result 206 K/mm3 (150-420); Red Blood Count 4.01 M/mm3 (4.70-6.10); Red Cell Distribution Width 13.6 % (11.6-14.4); White Blood Count 12.6 K/mm3 (4.8-10.8)
[2021-06-23 05:54] LABS: Alanine Aminotransferase 22 U/L (16-63); Albumin Level 2.8 g/dL (3.4-5.0); Alkaline Phosphatase 108 U/L (46-116); Anion Gap 9 mmol/L (8-16); Aspartate Amino Transferase 16 U/L (15-37); Blood Urea Nitrogen 20 mg/dL (7-18); Calcium 8.6 mg/dL (8.5-10.1); Carbon Dioxide 27 mmol/L (21-32); Chloride 102 mmol/L (98-108); Estimated CRCL calculation 43 ml/min; Estimated Glomerular Filt Rate 49; Glucose 104 mg/dL (70-99); NT Pro B Type Natriuretic Pept 2271 pg/mL (0-125); Osmolality Calculated 288 mOsm/kg (285-295); Potassium 3.7 mmol/L (3.5-5.1); Sodium 138 mmol/L (136-145); Total Protein 6.1 g/dL (6.4-8.2)
--- NOTE | 2021-06-23 07:47 | ECG_ITS ---
Measurements Intervals [place] Rate: 90 P: DC: 0 QRS: 35 QRSD: 88 T: 21 QT: 332 QTc: 406 Interpretive Statements ATRIAL FIBRILLATION BASELINE ARTIFACT- I, II, III, AVR, AVL, AVF ABNORMAL ECG Electronically Signed On 06-23-2021 8:19:25 PARK GUIDE by Ulices Gao D.O.
--- NOTE | 2021-06-23 08:01 | PM.IMHP ---
H&P: HPI History of Present Illness Date/Time: 06/23/21 08:01 this is a 71-year-old male who presented to our emergency department with complaints of chest discomfort. Patient has a past medical history of A. fib, COPD, congestive heart failure, CKD, dyslipidemia, elevated PSA, elevated troponin, hypertension, ID back in 2019, nicotine dependent, osteoporosis, A. fib, and vitamin D deficiency. Patient is a cardiac rehab patient and recently had a cardiac cath with stent on . while he was on the treadmill he started experiencing chest discomfort underneath his left nipple line that he describes as a sharp pain. Patient also experience shortness of breath but he has chronic shortness of breath he did note that it had worsened. patient states that the pain would come and go and occurred while he was on the treadmill. According to the patient , the cardiac rehab nurse called over to Dr. Gao who is his physicist nuclear who instructed her to send the patient to our ED. patient notes that he feels fatigue with lower extremity weakness he also feels as if his shortness of breath has worsened he will remain for an additional day for treatment of pneumonia. WBCs 16.8, hemoglobin 13.6, hematocrit 41.1, platelets 220, sodium 136, potassium 24.2, BUN 21, creatinine 1.59, glucose 108, lactic acid 1.6, troponin 12.2, liver function within normal limits, D-dimer 0.52, chest x-ray indicates pneumonia, CTA for PE. Patient will be treated for pneumonia and COPD. <ANKITA Davis - Last Filed: 06/23/21 14:11> Chief Complaint: Shortness of breath and chest pain <ANKITA Davis - Last Filed: 06/23/21 14:11> Review of Systems Review of Systems: A 14 organ system Review of Systems was performed and pertinent positives included in the HPI, otherwise remaining ROS is negative. <ANKITA Davis - Last Filed: 06/23/21 14:11> [facility] Past Medical History Medical History: Medical History A-fib Advanced COPD Chronic systolic heart failure Echocardiogram March 2019 demonstrated EF of 45-50% with moderate right atrial larger mild aortic valve and mitral valve regurgitation and [id number] tricuspid regurgitation CKD (chronic kidney disease) stage 3, GFR 30-59 ml/min Dyslipidemia Elevated PSA Elevated troponin Essential (primary) hypertension (11/02/16) Kyphosis (acquired) (postural) Due to osteoporosis Myocardial infarction Evidence of infarct on stress test from September 2018 without reversible ischemia EF of 37% Nicotine dependence, cigarettes, uncomplicated Osteoporosis Persistent atrial fibrillation Rectal polyp Vitamin D deficiency, unspecified <ANKITA Davis - Last Filed: 06/23/21 14:11> Surgical History Surgical History: Surgical History History of vasectomy Hx of cataract surgery Hx of tonsillectomy <ANKITA Davis - Last Filed: 06/23/21 14:11> Family History Family History: Family History Mother Patient's mother is Family history of malignant neoplasm <ANKITA Davis - Last Filed: 06/23/21 14:11> Social History Social History: Social History Social History: He has 2 adult children who are healthy. He has smoked since he was 20 years old and continues to smoke about half a pack of cigarettes per day. He drinks alcohol in moderation. He denies any illicit substance use. His primary care physician is Dr. Liliana May Smoking packs per day: 0.5 Smoking cigarettes per day: 10.0 Years smoked: 50 Smoking pack-years: 25.00 Smoking status: Current every day smoker Tobacco type: cigarettes Second hand tobacco smoke exposure: Yes Additional smoking assessment comments: has smoked up to 3ppd in the , his av
[2021-06-23 08:10] LABS: Troponin I 12.2 ng/L (0.00-60.4)
[2021-06-23] MEDS: methylPREDNISolone SOD SUCC 125 MG VIAL 60 MG IV PUSH ×2 (08:45→21:00)
[2021-06-23] MEDS: NICOTINE (*PBKC) 21 MG PATCH 1 PATCH TRANSDERM (08:45)
[2021-06-23] MEDS: TAMSULOSIN HCL 0.4 MG CAPSULE PO (08:46)
[2021-06-23] MEDS: PANTOPRAZOLE 40 MG TABLET PO ×2 (08:46→20:30)
[2021-06-23] MEDS: CLOPIDOGREL BISULFATE 75 MG TABLET PO (08:46)
[2021-06-23] MEDS: APIXABAN 2.5 MG TABLET 5 MG PO ×2 (08:46→20:29)
[2021-06-23] MEDS: PRAVASTATIN SODIUM 10 MG TABLET PO (08:47)
[2021-06-23] MEDS: BENZONATATE 100 MG CAPSULE 200 MG PO ×3 (09:18→17:51)
[2021-06-23] MEDS: guaiFENesin 12 HR 600 MG TABCR PO ×2 (09:18→20:30)
[2021-06-23] MEDS: FLUTICASONE/UMECLIDIN/VILANTER 100-62.5-25 MCG ELLIPTA 1 PUFF INHALATION (09:19)
[2021-06-23] MEDS: traMADol HCL (*CRX) 25 MG TABLET PO ×2 (09:22→20:28)
[2021-06-23 15:20] LABS: SARS-CoV-2 RNA PCR Negative (Negative)
[2021-06-23] MEDS: traZODone HCL 50 MG TABLET PO (20:30)
[2021-06-24] VITALS (11 sets, daily range): BP systolic 104–132; BP diastolic 61–69; PULSE 60–116; RESP 16–19; TEMP 36.6–36.7; O2SAT 93–99
[2021-06-24] MEDS: IPRATROPIUM 0.5 MG/ALBUTEROL SULFATE 2.5 MG AMPUL.NEB 3 ML INHALATION ×3 (00:23→12:20)
[2021-06-24 05:25] LABS: Alanine Aminotransferase 23 U/L (16-63); Albumin Level 2.7 g/dL (3.4-5.0); Alkaline Phosphatase 103 U/L (46-116); Anion Gap 10 mmol/L (8-16); Aspartate Amino Transferase 18 U/L (15-37); Bilirubin,Total 0.3 mg/dL (0.00-1.00); Blood Urea Nitrogen 17 mg/dL (7-18); Calcium 8.6 mg/dL (8.5-10.1); Carbon Dioxide 26 mmol/L (21-32); Chloride 102 mmol/L (98-108); Estimated CRCL calculation 49 ml/min; Estimated Glomerular Filt Rate 55; Glucose 176 mg/dL (70-99); Magnesium 1.5 mg/dL (1.8-2.4); NT Pro B Type Natriuretic Pept 3822 pg/mL (0-125); Osmolality Calculated 291 mOsm/kg (285-295); Potassium 3.9 mmol/L (3.5-5.1); Sodium 138 mmol/L (136-145)
[2021-06-24] MEDS: MAGNESIUM SULF 4 GM/WATER100ML 4 GM/100 ML BAG IVPB (07:51)
[2021-06-24] MEDS: PANTOPRAZOLE 40 MG TABLET PO (09:00)
[2021-06-24] MEDS: BENZONATATE 100 MG CAPSULE 200 MG PO (09:00)
[2021-06-24] MEDS: guaiFENesin 12 HR 600 MG TABCR PO (09:00)
[2021-06-24] MEDS: FLUTICASONE/UMECLIDIN/VILANTER 100-62.5-25 MCG ELLIPTA 1 PUFF INHALATION (09:00)
[2021-06-24] MEDS: PRAVASTATIN SODIUM 10 MG TABLET PO (09:01)
[2021-06-24] MEDS: CLOPIDOGREL BISULFATE 75 MG TABLET PO (09:01)
[2021-06-24] MEDS: APIXABAN 2.5 MG TABLET 5 MG PO (09:01)
[2021-06-24] MEDS: methylPREDNISolone SOD SUCC 125 MG VIAL 60 MG IV PUSH (09:01)
[2021-06-24] MEDS: TAMSULOSIN HCL 0.4 MG CAPSULE PO (09:01)
[2021-06-24] MEDS: NICOTINE (*PBKC) 21 MG PATCH 1 PATCH TRANSDERM (09:02)
--- NOTE | 2021-06-24 09:27 | P.DS_ITS ---
DS: Admitting Diagnosis Discharge Date 06/24/2021 <ANKITA Davis - Last Filed: 06/24/21 11:14> Admitting Diagnosis Pneumonia and COPD <ANKITA Davis - Last Filed: 06/24/21 11:14> DS: Discharge Diagnosis Discharge Diagnosis (1) Pneumonia: Qualifiers: Laterality: left Lung location: upper lobe of lung Pneumonia type: due to unspecified organism Qualified Code(s): J18.9 - Pneumonia, unspecified organism <ANKITA Davis - Last Filed: 06/24/21 11:14> Code(s): J18.9 - Pneumonia, unspecified organism <ANKITA Davis - Last Filed: 06/24/21 11:14> Status: Acute <ANKITA Davis - Last Filed: 06/24/21 11:14> Assessment and Plan: * Patient CTA indicates left upper lobe pneumonia * Patient started on azithromycin and Rocephin changed to cefepime and vancomycin due to possible hospital-acquired pneumonia patient recently discharged from hospital * WBCs 16.8>12.6>12.3 * Blood culture pending * Continue breathing treatments * Continue oxygen as needed * Continue Tessalon Perles with guaifenesin * Continue Solu-Medrol Patient was discharged with prednisone, Tessalon Perles, doxycycline and continue breathing treatments <ANKITA Davis - Last Filed: 06/24/21 11:14> (2) Chest pain: Code(s): R07.9 - Chest pain, unspecified <ANKITA Davis - Last Filed: 06/24/21 11:14> Status: Acute <ANKITA Davis - Last Filed: 06/24/21 11:14> Assessment and Plan: * Not believed to be cardiac related * Hknrfvso45.2>13.4>13.6 * EKG A. fib with RVR heart rate of 112 repeat A. fib heart rate of 90 * Continue telemetry Discharge follow-up with manager personnel selection <ANKITA Davis - Last Filed: 06/24/21 11:14> (3) CKD (chronic kidney disease) stage 3, GFR 30-59 ml/min: Code(s): N18.3 - Chronic kidney disease, stage 3 (moderate) <ANKITA Davis - Last Filed: 06/24/21 11:14> Status: Acute <ANKITA Davis - Last Filed: 06/24/21 11:14> Assessment and Plan: * Acute on chronic at baseline * Creatinine 1.59>1.43 >1.30 improving baseline appears to be between 1.20 and 1.30 * Avoid nephrotoxic agent * Renal dose all medication <ANKITA Davis - Last Filed: 06/24/21 11:14> (4) Elevated d-dimer: Code(s): R79.89 - Other specified abnormal findings of blood chemistry <Bhakti Whaley ANKITA - Last Filed: 06/24/21 11:14> Status: Acute <Bhakti Whaley ANKITA - Last Filed: 06/24/21 11:14> Assessment and Plan: * D-dimer 0.52 * CTA indicates prior PE no acute PE indicated <ANKITA Davis - Last Filed: 06/24/21 11:14> (5) Essential (primary) hypertension: Onset Date: 11/02/16 <Bhakti Whaley ANKITA - Last Filed: 06/24/21 11:14> Code(s): I10 - Essential (primary) hypertension <Bhakti Whaley ANKITA - Last Filed: 06/24/21 11:14> Status: Acute <Bhakti Whaley ANKITA - Last Filed: 06/24/21 11:14> Assessment and Plan: * Stable * Continue losartan, metoprolol * Vital signs as ordered * Will adjust medication as needed <Bhakti Whaley ANKITA - Last Filed: 06/24/21 11:14> (6) CAD (coronary artery disease): Code(s): I25.10 - Atherosclerotic heart disease of [place] coronary artery without angina pectoris <Bhakti Whaley ANKITA - Last Filed: 06/24/21 11:14> Status: Acute <Bhakti Whaley, LEAD RAMP AGENT-C - Last Filed: 06/24/21 11:14> Assessment and Plan: * Continue
--- NOTE | 2021-06-24 09:27 | PM.DS ---
DS: Admitting Diagnosis Discharge Date 06/24/2021 <ANKITA Davis - Last Filed: 06/24/21 11:14> Admitting Diagnosis Pneumonia and COPD <ANKITA Davis - Last Filed: 06/24/21 11:14> DS: Discharge Diagnosis Discharge Diagnosis (1) Pneumonia: Qualifiers: Laterality: left Lung location: upper lobe of lung Pneumonia type: due to unspecified organism Qualified Code(s): J18.9 - Pneumonia, unspecified organism <ANKITA Davis - Last Filed: 06/24/21 11:14> Code(s): J18.9 - Pneumonia, unspecified organism <ANKITA Davis - Last Filed: 06/24/21 11:14> Status: Acute <ANKITA Davis - Last Filed: 06/24/21 11:14> Assessment and Plan: Patient CTA indicates left upper lobe pneumonia Patient started on azithromycin and Rocephin changed to cefepime and vancomycin due to possible hospital-acquired pneumonia patient recently discharged from hospital WBCs 16.8>12.6>12.3 Blood culture pending Continue breathing treatments Continue oxygen as needed Continue Tessalon Perles with guaifenesin Continue Solu-Medrol Patient was discharged with prednisone, Tessalon Perles, doxycycline and continue breathing treatments <ANKITA Davis - Last Filed: 06/24/21 11:14> (2) Chest pain: Code(s): R07.9 - Chest pain, unspecified <ANKITA Davis - Last Filed: 06/24/21 11:14> Status: Acute <ANKITA Davis - Last Filed: 06/24/21 11:14> Assessment and Plan: Not believed to be cardiac related Mzteymzm06.2>13.4>13.6 EKG A. fib with RVR heart rate of 112 repeat A. fib heart rate of 90 Continue telemetry Discharge follow-up with title i teacher <ANKITA Davis - Last Filed: 06/24/21 11:14> (3) CKD (chronic kidney disease) stage 3, GFR 30-59 ml/min: Code(s): N18.3 - Chronic kidney disease, stage 3 (moderate) <ANKITA Davis - Last Filed: 06/24/21 11:14> Status: Acute <ANKITA Davis - Last Filed: 06/24/21 11:14> Assessment and Plan: Acute on chronic at baseline Creatinine 1.59>1.43 >1.30 improving baseline appears to be between 1.20 and 1.30 Avoid nephrotoxic agent Renal dose all medication <ANKITA Davis - Last Filed: 06/24/21 11:14> (4) Elevated d-dimer: Code(s): R79.89 - Other specified abnormal findings of blood chemistry <ANKITA Davis - Last Filed: 06/24/21 11:14> Status: Acute <ANKITA Davis - Last Filed: 06/24/21 11:14> Assessment and Plan: D-dimer 0.52 CTA indicates prior PE no acute PE indicated <ANKITA Davis - Last Filed: 06/24/21 11:14> (5) Essential (primary) hypertension: Onset Date: 11/02/16 <ANKITA Davis - Last Filed: 06/24/21 11:14> Code(s): I10 - Essential (primary) hypertension <ANKITA Davis - Last Filed: 06/24/21 11:14> Status: Acute <ANKITA Davis - Last Filed: 06/24/21 11:14> Assessment and Plan: Stable Continue losartan, metoprolol Vital signs as ordered Will adjust medication as needed <ANKITA Davis - Last Filed: 06/24/21 11:14> (6) CAD (coronary artery disease): Code(s): I25.10 - Atherosclerotic heart disease of [place] coronary artery without angina pectoris <Bhakti Whaley ANKITA - Last Filed: 06/24/21 11:14> Status: Acute <Bhakti Whaley ANKITA - Last Filed: 06/24/21 11:14> Assessment and Plan: Continue Plavix and pravastatin <ANKITA Davis - Last Filed: 06/24/21 11:14> (7) PAD (peripheral artery disease): Code(s): I73.9 - Peripheral vascular disease, unspecified <ANKITA Davis - Last Filed: 06/24/21 11:14> Status: Acute <ANKITA Davis - Last Filed: 06/24/21 11:14> (8) Atrial fibrillation and flutter: Code(s):
[2021-06-24] MEDS: FUROSEMIDE INJ 40 MG/4 ML VIAL 80 MG IV PUSH (10:00)
[2021-06-24 10:18] LABS: Hematocrit 37.6 % (37.0-46.0); Hemoglobin 11.9 g/dL (12.4-15.3); Mean Corpuscular HGB Conc 31.6 g/dL (32.0-36.0); Mean Corpuscular Hemoglobin 30.1 pg (27.0-31.0); Mean Corpuscular Volume 94.9 fL (78.0-102.0); Mean Platelet Volume 10.3 fl (8.7-11.0); Platelet Count Result 242 K/mm3 (150-420); Red Blood Count 3.96 M/mm3 (4.70-6.10); Red Cell Distribution Width 13.5 % (11.6-14.4); White Blood Count 12.3 K/mm3 (4.8-10.8)
[2021-06-24 11:18] LABS: Magnesium 2.9 mg/dL (1.8-2.4)
[2021-06-24] MEDS: diphenhydrAMINE HCl INJ 50 MG/ML VIAL 25 MG IV PUSH (11:50)
--- NOTE | 2021-06-24 13:55 | PC.NURSE ---
reviewed discharge instructions with patient, including follow up appointment and medications. Pt escorted via wheelchair to parking lot. Pt's own wheeled walker was loaded into his vehicle for him.
--- NOTE | 2021-06-25 13:53 | PC.NURSE ---
Pt states he received and understood his discharge instructions. Pt states you guys did a great job, I was very happy .
== END 2021-06-24 13:55 | disposition home or self-care (01) | DRG 190 ==
LOC: CHSED 14:23 → CHS2ND 14:30
PROVIDERS: Nurse Practitioner; Admitting Provider Emergency Medicine; Emergency Provider Emergency Medicine; PCP Family Medicine; Visit Provider Emergency Medicine
DX: I13.0 Hypertensive heart and chronic kidney disease with heart failure and stage 1 through stage 4 chronic kidney disease, or unspecified chronic kidney disease (principal); I50.22 Chronic systolic (congestive) heart failure; J44.0 Chronic obstructive pulmonary disease with (acute) lower respiratory infection; J18.9 Pneumonia, unspecified organism; N18.30 Chronic kidney disease, stage 3 unspecified; I48.19 Other persistent atrial fibrillation; E78.5 Hyperlipidemia, unspecified; E55.9 Vitamin D deficiency, unspecified; M81.0 Age-related osteoporosis without current pathological fracture; M40.209 Unspecified kyphosis, site unspecified; F17.210 Nicotine dependence, cigarettes, uncomplicated; Z79.01 Long term (current) use of anticoagulants; Z87.19 Personal history of other diseases of the digestive system; J44.1 Chronic obstructive pulmonary disease with (acute) exacerbation; I25.10 Atherosclerotic heart disease of native coronary artery without angina pectoris; I73.9 Peripheral vascular disease, unspecified; E87.8 Other disorders of electrolyte and fluid balance, not elsewhere classified; R79.89 Other specified abnormal findings of blood chemistry; I25.2 Old myocardial infarction; Z95.5 Presence of coronary angioplasty implant and graft
CPT/HCPCS: 36415; 71045; 71275; 80053; 83605; 83690; 83735; 83880; 84484; 85025; 85027; 85380; 85610; 85730; 87040; 87081; 93005; 94640; 96360; 97161; 99285; A9270; C9803; J0456; J0692; J0696; J1200; J1940; J2930; J3370; J3475; J7030; Q9967; U0003; U0005

== ENCOUNTER 2021-07-17 12:23 | Outpatient (CLI) | payer MEDICARE, SELFPAY ==
[2021-07-17 12:43] LABS: Add Urine Microscopic? YES; Appearance Urine Clear (Clear); Bilirubin Urine Negative (Negative); Blood Urine 1+ (Negative); Color Urine Light Yellow (Yellow); Glucose Urine UA Negative (Negative); Ketones Urine Negative (Negative); Leukocyte Esterase Ur 1+ LEU/UL (Negative); Nitrate Urine Negative (Negative); Protein Urine Negative (Negative); Specific Grav Ur 1.015 (1.010-1.020); Urobilinogen Urine 0.2 mg/dL (0.2-1.0)
[2021-07-17 12:51] LABS: Bacteria Urine Trace /hpf; Squamous Epithelial Cell Urine Rare /hpf (Few)
== END 2021-07-17 12:24 | disposition home or self-care (01) ==
PROVIDERS: PCP Family Medicine; Visit Provider Family Medicine
DX: Z13.89 Encounter for screening for other disorder (principal); R82.90 Unspecified abnormal findings in urine
CPT/HCPCS: 81001; 87086

== ENCOUNTER 2021-09-16 11:00 | Outpatient (RCR) | payer MEDICARE, OTHER, SELFPAY ==
--- NOTE | 2021-06-22 12:00 | PCCPR ---
Addendum entered by Fay Warren RN 06/22/21 15:05: CHEST PAIN AFTER TREADMILL DID NOT SUBSIDE AFTER 5-10 MIN REST, PT STATED THAT IT SEEMED TO BE GETTING WORSE. Original Note: PT CAME TO CARDIAC REHAB TODAY WITH REPORT OF RESOLVED LEFT SIDED CHEST PAIN THAT BEGAN TUESDAY AFTERNOON AND CONTINUED THROUGH Tuesday. NO OTHER SYMPTOMS REPORTED CONCURRENTLY. STATES WAS JUST SITTING AND WATCHING TV WHEN IT BEGAN. DESCRIBED SHARP AND INCREASED WITH INSPIRATION. STATES NOTHING MADE IT BETTER. HOWEVER REPORTED TOOK APAP LATE TUESDAY NIGHT AND PAIN WAS GONE LATE TUESDAY MORNING. STATES TODAY HIS BREATHING IS WORSE THAN USUAL (COPD), NO CHEST PAIN. LUNG SOUNDS UPON AUSCULTATION REVEALED INTERMITTENT EXPIRATORY WHEEZES AT [facility] [employer], WORSE OVER LEFT. SPO2 97% ON ROOM AIR. PT USED ALBUTEROL INHALER UPON ENTERING GYM. HEART RATE, 90-130 AFIB AT REST. WHILE ON NUSTEP PATIENT REPORTED SOME CRAMPING IN LEFT HIP/THIGH, REDUCED RESISTANCE OF MACHINE. AFTER TREADMILL EXERCISE PT REPORTED THAT LEFT SIDED CHEST PAIN WAS RETURNING, HOWEVER NOW REPORTS PAIN IN LOWER LOCATION IN RELATION TO PAIN FELT OVER THE WEEKEND, STAT EKG OBTAINED, MESSAGE LEFT FOR DR. VILLELA (INSURANCE SALES SPECIALIST) AT CLINIC, AND PATIENT TAKEN TO ER TO R/O ACS.
== END 2021-09-16 13:15 | disposition home or self-care (01) ==
PROVIDERS: PCP Family Medicine; Visit Provider Internal Medicine Cardiovascular Disease
DX: Z95.5 Presence of coronary angioplasty implant and graft (principal)
CPT/HCPCS: 93798

== ENCOUNTER 2021-11-09 10:11 | Outpatient (CLI) | payer MEDICARE, OTHER, SELFPAY ==
--- NOTE | ~2021-11-09 | CT_ITS ---
EXAMINATION:CT lung screening DATE: 11/09/2021 10:46 INDICATION: Personal history of nicotine dependence. Current smoker with 50 pack year history. TECHNIQUE: Computed tomography (CT) of the chest was performed without intravenous contrast. Automate d exposure control and iterative reconstruction technique were employed. The dose-length product (DLP ) was 93.12 mGy-cm. COMPARISON: Chest CT 06/22/2021, 11/07/2020 FINDINGS: There is severe emphysema. There is scarring in right upper lobe and right middle lobe. The re are mild airspace opacities in left upper lobe with interval improvement, consistent with scarring after pneumonia. There is a 5 mm nodule in left lower lobe without change from 11/07/2020. There is a chronic 2.0 cm nodule with calcifications in right upper lobe. There is a 6 mm nodule in right lower lobe without change from 11/07/2020. No pleural effusion. The heart size is normal. There are coronary artery calcifications. No pericardial effusion. There is mild chronic anterior wedging of multiple ve rtebral bodies. There is moderate thoracic spondylosis and severe lumbar spondylosis. IMPRESSION: 1. Lung-RADS category 2: Benign appearance or behavior. Continue annual screening with noncontrast lo w-dose chest CT in 12 months. Reviewed, dictated and finalized at location A. IMPRESSION: 1. Lung-RADS category 2: Benign appearance or behavior. Continue annual screeni ng with noncontrast low-dose chest CT in 12 months.
== END 2021-11-09 10:12 | disposition home or self-care (01) ==
LOC: ANHIMG 10:17
PROVIDERS: PCP Family Medicine; Visit Provider Nurse Practitioner Family
DX: Z87.891 Personal history of nicotine dependence (principal)
CPT/HCPCS: 71271

== ENCOUNTER 2022-03-19 13:18 | Outpatient (CLI) | payer MEDICARE, OTHER, SELFPAY ==
--- NOTE | 2022-03-19 13:26 | ECHO_ITS ---
Patient Info Name: Chilo Cross Age: 72 years : 1950 Gender: Male Ht: 72 in Wt: 158 lbs BSA: 1.90 m2 HR: 84 bpm BP: 114 / 75 mmHg Heart Rhythm: Atrial Fibrillation Technical Quality: Fair Exam Date: 03/19/2022 1:17 PM Exam Location: [facility] Patient Status: Outpatient Admit Date: 03/19/2022 Staff Ordering Physician: Ulices Gao DO Content Writer: Sally Nunez RDCS Attending Provider: Ulices Gao DO Referring Physician: Murray BORREGO; Exam Type: CA echo doppler color flow Study Info Indications I50.22 - Chronic systolic (congestive) heart failure Complete two-dimensional, color flow and Doppler transthoracic echocardiogram is performed. Summary 1. Complete two-dimensional, color flow and Doppler transthoracic echocardiogram is performed. 2. Left ventricular chamber dimension is mildly enlarged. 3. Left ventricular systolic function is mildly reduced, estimated at 45-50%. 4. The left ventricular diastolic function is normal. 5. E/e' 9 is minimally elevated. 6. Atrial fibrillation. 7. Left atrial chamber dimension is mildly enlarged. 8. There is mild aortic valve sclerosis. 9. There is mild aortic valve regurgitation. 10. There is trace mitral valve regurgitation. 11. There is mild tricuspid valve regurgitation. 12. No pulmonary hypertension, estimated pulmonary arterial systolic pressure is 30 mmHg. 13. There is trace pulmonic regurgitation. Left Ventricle E/e' 9 is minimally elevated. Atrial fibrillation. Left ventricular chamber dimension is mildly enlarged. Left ventricular systolic function is mildly reduced, estimated at 45-50%. The left ventricular diastolic function is normal. Right Ventricle Right ventricular systolic function is normal and with normal TAPSE 1.8 cm. Right ventricular chamber dimension is normal. Left Atria Left atrial chamber dimension is mildly enlarged. Right Atria Right atrial chamber dimension is normal. Aortic Valve The aortic valve is trileaflet. There is mild aortic valve sclerosis. There is no aortic valve stenosis. There is mild aortic valve regurgitation. Pulmonic Valve There is trace pulmonic regurgitation. Mitral Valve There is no mitral valve stenosis. There is trace mitral valve regurgitation. Tricuspid Valve There is mild tricuspid valve regurgitation. No pulmonary hypertension, estimated pulmonary arterial systolic pressure is 30 mmHg. Pericardium/Pleural There is no pericardial effusion. Inferior Vena Cava Normal inferior vena cava with >50% collapse upon inspiration consistent with normal right atrial pressure, 5 mmHg. Aorta The aortic root size at the sinus of Valsalva is normal. Left Ventricular Outflow Tract Name Value Normal LVOT 2D LVOT Diameter 2.1 cm LVOT Doppler LVOT Peak Velocity 103 cm/s LVOT Peak Gradient 2 mmHg LVOT Mean Gradient 1 mmHg LVOT VTI 14 cm LVOT VTI/AV VTI Ratio 0.5 LVOT Stroke Volume 50 ml
== END 2022-03-19 13:19 | disposition home or self-care (01) ==
LOC: CHSIMG 13:21
PROVIDERS: PCP Family Medicine; Visit Provider Internal Medicine Cardiovascular Disease
DX: I50.22 Chronic systolic (congestive) heart failure (principal)
CPT/HCPCS: 93306

== ENCOUNTER 2022-09-07 10:23 | Outpatient (CLI) | payer MEDICARE, SELFPAY ==
[2022-09-07 10:43] LABS: Basophils Absolute Auto 0.13 K/mm3 (0.00-0.10); Basophils Percent Auto 1.3 % (0.0-1.0); Eosinophils Absolute Auto 0.74 K/mm3 (0.02-0.50); Eosinophils Percent Auto 7.5 % (1.0-6.0); Hematocrit 46.5 % (37.0-46.0); Hemoglobin 15.2 g/dL (12.4-15.3); Immature Granulocyte Absolute 0.03 K/mm3 (0.00-0.00); Immature Granulocyte Percent A 0.3 % (0.0-0.0); Lymphocytes Absolute Auto 2.12 K/mm3 (1.10-4.50); Lymphocytes Percent Auto 21.4 % (18.0-42.0); Mean Corpuscular HGB Conc 32.7 g/dL (32.0-36.0); Mean Corpuscular Hemoglobin 29.9 pg (27.0-31.0); Mean Corpuscular Volume 91.4 fL (78.0-102.0); Mean Platelet Volume 9.7 fl (8.7-11.0); Monocytes Absolute Auto 0.69 K/mm3 (0.10-0.90); Neutrophils Absolute Auto 6.2 K/mm3 (1.7-7.2); Neutrophils Percent Auto 62.5 % (50.0-70.0); Platelet Count Result 223 K/mm3 (150-420); Red Blood Count 5.09 M/mm3 (4.70-6.10); Red Cell Distribution Width 13.6 % (11.6-14.4); White Blood Count 9.9 K/mm3 (4.8-10.8)
[2022-09-07 11:14] LABS: Alanine Aminotransferase 15 U/L (16-63); Albumin Level 3.5 g/dL (3.4-5.0); Alkaline Phosphatase 110 U/L (46-116); Anion Gap 6 mmol/L (8-16); Aspartate Amino Transferase 17 U/L (15-37); Bilirubin,Total 0.6 mg/dL (0.00-1.00); Blood Urea Nitrogen 17 mg/dL (7-18); Carbon Dioxide 32 mmol/L (21-32); Chloride 105 mmol/L (98-108); Cholesterol 215 mg/dL (0-200); Estimated Glomerular Filt Rate 48; Glucose 104 mg/dL (70-99); HDL Direct 46 mg/dL (40-60); LDL Cholesterol Calculated 154 mg/dL (<130); Osmolality Calculated 297 mOsm/kg (285-295); Potassium 4.6 mmol/L (3.5-5.1); Sodium 143 mmol/L (136-145); Total Protein 6.6 g/dL (6.4-8.2); Triglycerides 75 mg/dL (0-150)
== END 2022-09-07 10:24 | disposition home or self-care (01) ==
LOC: CHSLAB 10:26
PROVIDERS: PCP Family Medicine; Visit Provider Internal Medicine Cardiovascular Disease
DX: E78.5 Hyperlipidemia, unspecified (principal)
CPT/HCPCS: 36415; 80053; 80061; 85025

== ENCOUNTER 2022-11-09 09:23 | Outpatient (CLI) | payer MEDICARE, SELFPAY ==
[2022-11-09 10:12] LABS: Alanine Aminotransferase 18 U/L (16-63); Albumin Level 3.6 g/dL (3.4-5.0); Alkaline Phosphatase 113 U/L (46-116); Anion Gap 8 mmol/L (8-16); Aspartate Amino Transferase 17 U/L (15-37); Bilirubin,Total 0.6 mg/dL (0.00-1.00); Blood Urea Nitrogen 14 mg/dL (7-18); Calcium 9.1 mg/dL (8.5-10.1); Carbon Dioxide 30 mmol/L (21-32); Chloride 104 mmol/L (98-108); Cholesterol 196 mg/dL (0-200); Estimated Glomerular Filt Rate 52; Glucose 102 mg/dL (70-99); HDL Direct 49 mg/dL (40-60); LDL Cholesterol Calculated 131 mg/dL (<130); Osmolality Calculated 294 mOsm/kg (285-295); Potassium 4.5 mmol/L (3.5-5.1); Sodium 142 mmol/L (136-145); Total Protein 6.6 g/dL (6.4-8.2); Triglycerides 81 mg/dL (0-150)
== END 2022-11-09 09:24 | disposition home or self-care (01) ==
LOC: CHSLAB 09:25
PROVIDERS: PCP Family Medicine; Visit Provider Internal Medicine Cardiovascular Disease
DX: E78.5 Hyperlipidemia, unspecified (principal)
CPT/HCPCS: 36415; 80053; 80061

== ENCOUNTER 2022-11-10 09:06 | Outpatient (CLI) | payer MEDICARE, OTHER, SELFPAY ==
--- NOTE | ~2022-11-10 | CT_ITS ---
EXAMINATION: CT lung screening DATE: 11/10/2022 09:26 INDICATION: ct lung screening TECHNIQUE: Computed tomography (CT) of the chest was performed without intravenous contrast. Addition al 3D reconstructions utilizing coronal maximum intensity projection (MIP) were performed. Automated exposure control and iterative reconstruction technique were employed. The dose-length product was 88 .85 mGy-cm. COMPARISON: 11/09/2021 FINDINGS: Severe emphysema. Stable appearance of relatively bandlike scarring with associated mild bronchiectas is in the right upper and middle lobes. No interval change in a 2.3 cm chronic partially calcified ri ght upper lobe nodule along with a tiny calcified nodule in the superior segment of the right lower l obe consistent with old granulomatous disease. Decrease in the linear atelectasis/scarring at the lef t apex. No change in a 5 mm left lower lobe nodule or a few small likely intrafissural lymph nodes m easuring up to 3 mm along the left major fissure and 4 mm along the right major fissure. Unchanged sm all branching likely mucus impacted bronchus measuring 7 mm in maximal diameter with unchanged Y-shap ed configuration on coronal MIP imaging. No new or enlarging pulmonary nodules, pneumonia, pulmonary edema or pleural effusion. Heart size is normal. No pericardial effusion. Fusiform ectasia of the asc ending thoracic aorta which measures up to 4.1 cm in maximal diameter. No pathologically enlarged tho racic lymphadenopathy. Thoracic dextroscoliosis and kyphosis with chronic mild anterior wedging of mu ltiple mid to lower thoracic vertebral bodies and severe spondylosis. IMPRESSION: 1. Lung-RADS category 2: Benign appearance or behavior. Continue annual screening with noncontrast lo w-dose chest CT in 12 months. Reviewed, dictated and finalized at location A. IMPRESSION: 1. Lung-RADS category 2: Benign appearance or behavior. Continue annual screeni ng with noncontrast low-dose chest CT in 12 months.
== END 2022-11-10 09:07 | disposition home or self-care (01) ==
PROVIDERS: PCP Family Medicine; Visit Provider Nurse Practitioner Family
DX: Z12.2 Encounter for screening for malignant neoplasm of respiratory organs (principal); Z87.891 Personal history of nicotine dependence
CPT/HCPCS: 71271

== ENCOUNTER 2023-03-24 11:00 | Outpatient (RCR) | payer MEDICARE, OTHER, SELFPAY | END 2023-03-31 13:27 | disposition home or self-care (01) | PROVIDERS: PCP Family Medicine; Visit Provider Internal Medicine Critical Care Medicine | DX: J44.9 Chronic obstructive pulmonary disease, unspecified (principal) | CPT/HCPCS: 94625 ==

== ENCOUNTER 2023-04-25 10:19 | Outpatient (CLI) | payer MEDICARE, OTHER, SELFPAY ==
--- NOTE | 2023-04-25 10:24 | ECHO_ITS ---
Patient Info Name: Chilo Cross Age: 73 years : 1950 Gender: Male Ht: 72 in Wt: 167 lbs BSA: 1.96 m2 HR: 71 bpm BP: 129 / 80 mmHg Heart Rhythm: Atrial Fibrillation Technical Quality: Good Exam Date: 04/25/2023 10:25 AM Exam Location: [facility] Patient Status: Outpatient Admit Date: 04/25/2023 Staff Ordering Physician: Ulices Gao DO Grain Operations Manager: CHRISTOPHER Attending Provider: Ulices Gao DO Referring Physician: Murray BORREGO; Exam Type: CA echo doppler color flow Study Info Indications - ch.systolic heart failure Complete two-dimensional, color flow and Doppler transthoracic echocardiogram is performed. Summary 1. Complete two-dimensional, color flow and Doppler transthoracic echocardiogram is performed. 2. Left ventricular chamber dimension is mildly enlarged. 3. Left ventricular systolic function is moderately reduced, estimated at 40-45%. 4. The left ventricular diastolic function is abnormal. 5. E/e' 22 is elevated. 6. Atrial fibrillation. 7. Left atrial chamber dimension is mildly enlarged. 8. There is mild aortic valve sclerosis. 9. There is mild aortic valve regurgitation. 10. There is mild to moderate mitral valve regurgitation. 11. There is mild tricuspid valve regurgitation. 12. No pulmonary hypertension, estimated pulmonary arterial systolic pressure is 25 mmHg. 13. There is trace pulmonic regurgitation. Left Ventricle E/e' 22 is elevated. Atrial fibrillation. Left ventricular chamber dimension is mildly enlarged. Left ventricular systolic function is moderately reduced, estimated at 40-45%. The left ventricular diastolic function is abnormal. Right Ventricle Right ventricular systolic function is normal and with normal TAPSE 2.1 cm. Right ventricular chamber dimension is normal. Left Atria Left atrial chamber dimension is mildly enlarged. Right Atria Right atrial chamber dimension is normal. Aortic Valve The aortic valve is trileaflet. There is mild aortic valve sclerosis. There is no aortic valve stenosis. There is mild aortic valve regurgitation. Pulmonic Valve There is trace pulmonic regurgitation. Mitral Valve There is no mitral valve stenosis. There is mild to moderate mitral valve regurgitation. Tricuspid Valve There is mild tricuspid valve regurgitation. No pulmonary hypertension, estimated pulmonary arterial systolic pressure is 25 mmHg. Pericardium/Pleural There is no pericardial effusion. Inferior Vena Cava Normal inferior vena cava with >50% collapse upon inspiration consistent with normal right atrial pressure, 5 mmHg. Aorta The aortic root size at the sinus of Valsalva is normal. Left Ventricular Outflow Tract Name Value Normal LVOT 2D LVOT Diameter 2.1 cm LVOT Doppler LVOT Peak Velocity 90 cm/s LVOT Peak Gradient 3 mmHg LVOT Mean Gradient 2 mmHg LVOT VTI 22 cm LVOT VTI/AV VTI Ratio 0.7 LVOT Stroke Volume 79 ml Pulmonic Valve Name Value Normal
== END 2023-04-25 10:20 | disposition home or self-care (01) ==
LOC: CHSIMG 10:20
PROVIDERS: PCP Family Medicine; Visit Provider Internal Medicine Cardiovascular Disease
DX: I50.22 Chronic systolic (congestive) heart failure (principal); I48.91 Unspecified atrial fibrillation; I35.1 Nonrheumatic aortic (valve) insufficiency; I34.0 Nonrheumatic mitral (valve) insufficiency; I07.1 Rheumatic tricuspid insufficiency
CPT/HCPCS: 93306

== ENCOUNTER 2023-09-13 09:06 | Outpatient (CLI) | payer MEDICARE, OTHER, SELFPAY ==
[2023-09-13 09:29] LABS: Basophils Absolute Auto 0.11 K/mm3 (0.00-0.10); Basophils Percent Auto 1.1 % (0.0-1.0); Eosinophils Absolute Auto 0.59 K/mm3 (0.02-0.50); Eosinophils Percent Auto 6.1 % (1.0-6.0); Hemoglobin 14.9 g/dL (12.4-15.3); Immature Granulocyte Absolute 0.05 K/mm3 (0.00-0.00); Immature Granulocyte Percent A 0.5 % (0.0-0.0); Lymphocytes Absolute Auto 2.16 K/mm3 (1.10-4.50); Lymphocytes Percent Auto 22.2 % (18.0-42.0); Mean Corpuscular HGB Conc 32.4 g/dL (32.0-36.0); Mean Corpuscular Hemoglobin 28.8 pg (27.0-31.0); Mean Platelet Volume 9.5 fl (8.7-11.0); Monocytes Absolute Auto 0.64 K/mm3 (0.10-0.90); Monocytes Percent Auto 6.6 % (2.0-11.0); Neutrophils Absolute Auto 6.2 K/mm3 (1.7-7.2); Neutrophils Percent Auto 63.5 % (50.0-70.0); Platelet Count Result 203 K/mm3 (150-420); Red Blood Count 5.17 M/mm3 (4.70-6.10); Red Cell Distribution Width 13.1 % (11.6-14.4); White Blood Count 9.7 K/mm3 (4.8-10.8)
[2023-09-13 10:04] LABS: Alanine Aminotransferase 19 U/L (16-63); Albumin Level 3.4 g/dL (3.4-5.0); Alkaline Phosphatase 86 U/L (46-116); Anion Gap 8 mmol/L (8-16); Aspartate Amino Transferase 19 U/L (15-37); Bilirubin,Total 0.5 mg/dL (0.00-1.00); Blood Urea Nitrogen 19 mg/dL (7-18); Calcium 8.6 mg/dL (8.5-10.1); Carbon Dioxide 29 mmol/L (21-32); Chloride 101 mmol/L (98-108); Cholesterol 173 mg/dL (0-200); Estimated Glomerular Filt Rate 58; Glucose 101 mg/dL (70-99); HDL Direct 50 mg/dL (40-60); LDL Cholesterol Calculated 110 mg/dL (<130); Osmolality Calculated 288 mOsm/kg (285-295); Potassium 4.5 mmol/L (3.5-5.1); Sodium 138 mmol/L (136-145); Total Protein 6.8 g/dL (6.4-8.2); Triglycerides 65 mg/dL (0-150)
== END 2023-09-13 09:07 | disposition home or self-care (01) ==
LOC: CHSLAB 09:08
PROVIDERS: PCP Family Medicine; Visit Provider Physician Assistant
DX: I48.0 Paroxysmal atrial fibrillation (principal); E78.5 Hyperlipidemia, unspecified; E55.9 Vitamin D deficiency, unspecified
CPT/HCPCS: 36415; 80053; 80061; 85025

== ENCOUNTER 2023-11-14 10:51 | Outpatient (CLI) | payer MEDICARE, OTHER, SELFPAY ==
--- NOTE | ~2023-11-14 | CT_ITS ---
CT Scan of the Chest without Contrast: Clinical Indication: Lung cancer screening, nicotine history Technique: Contiguous sections were acquired throughout the chest without intravenous contrast. Dose reduction technique was used on this scan by utilizing automated exposure control and iterative recon struction technique. The dose-length product (DLP) was 94.01 mGy-cm. Findings: There is no evidence of any significant mediastinal, hilar or axillary lymphadenopathy. The mediastin al soft tissues appear normal. There is no evidence of pleural or pericardial effusion. Severe emphysema present. There is right upper lobe scarring and large calcified right upper lobe gra nuloma. There is additional linear scarring in the right middle lobe. 5 mm left lower lobe pulmonary nodule present. Probable focal irregular scarring left upper lobe. Images through the upper abdomen reveal no abnormalities. Impression: Lung RADS 2: Benign appearance. 12 month follow-up screening CT advised. Reviewed, dictated and finalized at [facility]. Impression: Lung RADS 2: Benign appearance. 12 month follow-up screening CT advised.
== END 2023-11-14 10:52 | disposition home or self-care (01) ==
LOC: CHSIMG 10:54
PROVIDERS: PCP Family Medicine; Visit Provider Nurse Practitioner Family
DX: Z12.2 Encounter for screening for malignant neoplasm of respiratory organs (principal); Z87.891 Personal history of nicotine dependence
CPT/HCPCS: 71271

== ENCOUNTER 2023-12-19 09:25 | Emergency (ER) | payer MEDICARE, OTHER, SELFPAY ==
[2023-12-19] VITALS (49 sets, daily range): BP systolic 61–128; BP diastolic 26–100; PULSE 69–128; RESP 14–39; TEMP 37.2; O2SAT 91–99
--- NOTE | ~2023-12-19 | XR_ITS ---
EXAMINATION: XR chest 2V DATE: 12/19/2023 09:57 INDICATION: Shortness of breath TECHNIQUE: PA and lateral views of the chest were obtained. COMPARISON: Chest CT dated 11/14/2023 FINDINGS: Emphysema with chronic biapical pleural-parenchymal scarring. New patchy airspace opacities in the bi lateral posterior mid lung zones, left greater than right. Calcified nodules in the right midlung zon e consistent with old granulomatous disease. No pulmonary edema, pleural effusion or pneumothorax. Th e cardiomediastinal silhouette is normal. Moderate thoracic spondylosis with mild kyphosis and chroni c mild anterior wedging of a few mid thoracic vertebral bodies. IMPRESSION: 1. New airspace opacities in the posterior mid lung zones, left greater than right which is concernin g for pneumonia versus atelectasis or less likely mild pulmonary edema. 2. Emphysema with chronic biapical pleural parenchymal scarring. Reviewed, dictated and finalized at location B. IMPRESSION: 1. New airspace opacities in the posterior mid lung zones, left greater than ri ght which is concerning for pneumonia versus atelectasis or less likely mild pu lmonary edema. 2. Emphysema with chronic biapical pleural parenchymal scarring.
--- NOTE | 2023-12-19 09:42 | ECG_ITS ---
SEE SCANNED COPY FOR CONFIRMED REPORT MTDD
--- NOTE | 2023-12-19 09:45 | ED.GENADULT ---
HPI - General Adult General Chief complaint: Shortness of Breath/Dyspnea Stated complaint: shortness of breath Time Seen by Provider: 12/19/23 09:33 History of Present Illness HPI narrative: The patient is a 73-year-old male with history of COPD, not on oxygen, has inhalers and nebulizers at home, ex-smoker. Also with chronic systolic heart failure ejection fraction 45%, BPH, hypertension, osteoarthritis, osteoporosis, chronic atrial fibrillation on apixaban therapy 5 mg p.o. b.i.d., prior AL, chronic kidney disease stage 3, coronary artery disease, peripheral vascular disease, hyperlipidemia, and GERD. He had been doing reasonably well until 9:00 a.m. yesterday morning when he woke up, and felt short of breath. He has had a cough, productive of yellow sputum. His appetite has been much decreased, with no energy, along with nausea but no vomiting. He also complains of left chest wall tenderness. He has felt hot and cold all day yesterday, along with chills but no diaphoresis. He did have a headache yesterday that was treated with Tylenol, and resolved. He does have nausea but no vomiting. No diarrhea. No rhinorrhea or nasal congestion or sore throat or earache or abdominal pain. No hematuria or dysuria or urinary frequency or urgency. No sick contacts. Related Data Home Medications Medication Instructions Recorded Confirmed fluticasone fur. 100 mcg-umeclid 1 inh inhalation DAILY 12/19/23 12/19/23 62.5 mcg-vilant 25 mcg inhalat.powder (Trelegy Ellipta) losartan 25 mg tablet 25 mg PO DAILY 12/19/23 12/19/23 metoprolol succinate 25 mg 12.5 mg PO DAILY 12/19/23 12/19/23 tablet,extended release 24 hr tamsulosin 0.4 mg capsule 0.4 mg PO DAILY 12/19/23 12/19/23 Allergies Allergy/AdvReac Type Severity Reaction Status Date / Time lisinopril Allergy Unknown Cough Verified 12/19/23 09:35 Sulfa (Sulfonamide Allergy Cough Verified 12/19/23 09:35 Antibiotics) Review of Systems Review of Systems: All systems reviewed & are unremarkable except as noted in HPI and below Constitutional: Constitutional: Reports chills, Denies excessive sweating, Reports fatigue, Reports fever(s), Reports headache(s) and Reports weakness ( Generalized) Eyes: Eyes: Denies change in vision and Denies photophobia ENT: Denies dysphagia, Denies dizziness, Denies lip swelling, Denies nasal congestion, Denies sore throat and Denies tongue swelling Cardiovascular: Cardiovascular: Reports chest pain, Denies syncope, Denies rapid heart rate and Reports dyspnea Respiratory: Respiratory: Denies chest congestion, Reports cough ( productive of yellow sputum), Reports dyspnea and Denies wheezing Gastrointestinal: Gastrointestinal: Denies abdominal pain, Denies constipation, Denies dysphagia, Denies diarrhea, Reports nausea and Denies vomiting Genitourinary: Genitourinary: Denies hematuria, Denies dysuria, Denies urinary frequency and Denies urinary urgency Musculoskeletal: Musculoskeletal: Denies back pain, Denies myalgias, Denies arthralgias, Denies joint swelling and Denies numbness Integumentary/Breasts: Skin/Breast: Denies pruritus, Denies erythema and Denies rash Neurologic: Denies confusion, Denies dizziness, Denies syncope, Denies focal weakness and Denies numbness Psychiatric: Psychiatric: Denies anxiety and Denies confusion Endocrine: Endocrine: Denies excessive sweating Hematologic/Lymphatic: Hematologic/Lymphatic: Denies easy bleeding and Denies easy bruising Allergic/Immunologic: Allergic/Immunologic: Denies lip swelling, Denies tongue swelling and Denies wheezing [facility] Past Medical History Medical History (Updated 12/19/23 @ 20:33 by Myra Galvan PA-C) Chronic anticoagulation Chronic kidney disease, stage 3 Chronic obstructive pulmonary disease Coronary artery disease Dyslipidemia Former smoker Gastroesophageal reflux disease Heart failure with reduced ejection fraction Echocardiogram in April 2023 showed reduced
[2023-12-19] MEDS: SODIUM CHLORIDE 0.9% IV 1,000 ML 999 ML IV CONT ×2 (10:03→11:40)
[2023-12-19] MEDS: ONDANSETRON INJ 4 MG/2 ML VIAL IV PUSH (10:04)
[2023-12-19] MEDS: guaiFENesin/DEXTROMETHORPHAN 5 ML UDC 10 ML PO (10:04)
[2023-12-19] MEDS: ACETAMINOPHEN 500 MG TABLET 1000 MG PO (10:04)
--- NOTE | 2023-12-19 10:41 | PC.NURSE ---
Awaiting labs before starting antibiotics.
[2023-12-19 10:42] LABS: Strep Group A RT-PCR NOT DETECTED (Negative)
[2023-12-19 10:45] LABS: SARS-CoV-2 RNA PCR Negative (Negative)
[2023-12-19 10:48] LABS: HCO3 VBG 22.1 mEq/l (24.0-30.0); PCO2 VBG 35.7 mmHg (42.0-48.0); PO2 VBG 29.7 mmHg (35.0-45.0); pH VBG 7.41 (7.33-7.43)
[2023-12-19 10:49] LABS: Hemoglobin 13.1 g/dL (12.4-15.3); Mean Corpuscular HGB Conc 32.8 g/dL (32-36); Mean Corpuscular Hemoglobin 29.2 pg (27.0-31.0); Mean Corpuscular Volume 89.3 fL (78.0-102.0); Platelet Count Result 159 K/mm3 (150-420); Red Blood Count 4.48 M/mm3 (4.70-6.10); Red Cell Distribution Width 13.4 % (11.6-14.4)
[2023-12-19 10:51] LABS: White Blood Count 27.1 K/mm3 (4.8-10.8)
[2023-12-19 10:52] LABS: Device ROOM AIR
[2023-12-19 10:54] LABS: Influenza A QL RT-PCR Negative (Negative); Influenza B QL RT-PCR Negative (Negative); RSV RNA, RT-PCR Negative (Negative)
[2023-12-19] MEDS: cefTRIAXone 2 GM/NS 100 ML 2 GM/100 ML BAG IVPB (11:00)
[2023-12-19 11:09] LABS: Band Neutrophils Percent 4 % (0-6); Basophils Absolute Manual 0.27 K/mm3 (0-0.1); Basophils Percent Manual 1 % (0-1); Eosinophils Percent Manual 0 % (1-6); Lymphocytes Absolute Manual 0.54 K/mm3 (1.1-4.5); Lymphocytes Percent Manual 2 % (18-44); Monocytes Absolute Manual 1.35 K/mm3 (0.1-0.90); Monocytes Percent Manual 5 % (3-9); Neutrophils Absolute Manual 24.93 K/mm3 (1.3-6.7); Neutrophils Percent Manual 88 % (46-73); Platelet Estimate Adequate (Adequate); Schistocytes None Seen; Total Cells Counted 100
[2023-12-19 11:11] LABS: Lactic Acid Reflex 1.7 mmol/L (0.4-2.0)
[2023-12-19 11:14] LABS: Alanine Aminotransferase 13 U/L (16-63); Albumin Level 2.9 g/dL (3.4-5.0); Alkaline Phosphatase 74 U/L (46-116); Anion Gap 9 mmol/L (4-12); Aspartate Amino Transferase 21 U/L (15-37); Bilirubin,Total 1.8 mg/dL (0.00-1.00); Blood Urea Nitrogen 21 mg/dL (7-18); Calcium 8.1 mg/dL (8.5-10.1); Carbon Dioxide 27 mmol/L (21-32); Chloride 98 mmol/L (98-108); Creatine Kinase 250 U/L (39-308); Estimated CRCL calculation 39 ml/min; Estimated Glomerular Filt Rate 42; Glucose 110 mg/dL (70-99); NT Pro B Type Natriuretic Pept 4219 pg/mL (0-125); Osmolality Calculated 282 mOsm/kg (285-295); Sodium 134 mmol/L (136-145)
[2023-12-19 11:17] LABS: CRP 13.5 mg/dL (0.0-0.9)
[2023-12-19 11:19] LABS: Troponin I 14.8 ng/L (0.00-60.4)
[2023-12-19 11:27] LABS: D Dimer 0.58 mg/L (0.19-0.50)
[2023-12-19] MEDS: MIDODRINE HCL 2.5 MG TABLET 15 MG PO (11:39)
[2023-12-19] MEDS: AZITHROMYCIN 500 MG/NS 250 ML 500 MG/250 ML BAG 250 MG IVPB (11:43)
[2023-12-19 11:50] LABS: Erythrocyte Sedimentation Rate 12 mm/hr (0-20)
--- NOTE | 2023-12-19 12:20 | PC.NURSE ---
ERP spoke with hospitalist about admission. BP needs to improve before Pt will be accepted for admission.
[2023-12-19] MEDS: MEROPENEM 1 GM/NS 100 ML 1 GM/100 ML BAG IVPB (13:01)
[2023-12-19] MEDS: MAGNESIUM SULF 4 GM/WATER100ML 4 GM/100 ML BAG IVPB (13:02)
[2023-12-19] MEDS: SODIUM CHLORIDE 0.9% IV 1,000 ML 125 ML IV CONT (13:54)
[2023-12-19] MEDS: NOREPINEPHRINE 8 MG/D5W 250 ML 8 MG/250 ML BAG 5.63 MG IV CONT (13:58)
--- NOTE | 2023-12-19 14:27 | PC.NURSE ---
[facility] machine operator requesting central line be placed prior to transfer. Pt aware and procedure consent signed. Pt moved to ER room #7 in preparation for the procedure.
[2023-12-19] MEDS: LIDOCAINE HCL 1% LOCAL INJ 10 ML VIAL (15:11)
--- NOTE | 2023-12-19 15:13 | PC.NURSE ---
Assisted ERP with central line placement. Initially planned to use the right femoral vein, but after ERP assessed the site it was decided that the left vein would be better. Pt verbalized understanding and agrees to use left femoral vein. Good blood return noted from lines. Pt tolerated procedure well. Norepinephrine switched to brown cap on central line per ERP.
--- NOTE | 2023-12-19 15:34 | PC.NURSE ---
Called [facility] to confirm that they were aware Building Illuminating Engineer accepted Pt for admission. [facility] inquiring about central line placement. RN informed her CVC is in place and working well at this time. [facility] will inform [place] [facility] and obtain room assignment.
--- NOTE | 2023-12-19 15:48 | PC.NURSE ---
Pt requesting [facility] transport them to [place].
--- NOTE | 2023-12-19 16:10 | PC.NURSE ---
EMT states that they are unable to transport Pt with Magnesium infusing. ERP aware, states ok to d/c magnesium. Pt has received approximately 3 grams.
--- NOTE | 2023-12-25 13:55 | PC.NURSE ---
blood culture reviewed, no growth 5 days
== END 2023-12-19 16:20 | disposition short-term general hospital (02) ==
PROVIDERS: Emergency Provider Emergency Medicine; PCP Family Medicine
DX: J18.9 Pneumonia, unspecified organism (principal); E83.42 Hypomagnesemia; I95.9 Hypotension, unspecified; J44.9 Chronic obstructive pulmonary disease, unspecified; Z87.891 Personal history of nicotine dependence; I50.22 Chronic systolic (congestive) heart failure; I48.20 Chronic atrial fibrillation, unspecified; M81.0 Age-related osteoporosis without current pathological fracture; N18.30 Chronic kidney disease, stage 3 unspecified; I25.10 Atherosclerotic heart disease of native coronary artery without angina pectoris; E78.5 Hyperlipidemia, unspecified; K21.9 Gastro-esophageal reflux disease without esophagitis; I73.9 Peripheral vascular disease, unspecified; I13.0 Hypertensive heart and chronic kidney disease with heart failure and stage 1 through stage 4 chronic kidney disease, or unspecified chronic kidney disease; Z20.822 Contact with and (suspected) exposure to COVID-19
CPT/HCPCS: 36415; 36556; 71046; 80053; 82550; 82803; 83605; 83735; 83880; 84484; 85025; 85380; 85652; 86140; 87040; 87637; 87651; 93005; 96361; 96365; 96366; 96367; 96375; 99291; A9270; C1751; J0456; J0696; J2185; J2405; J3475; J7030

== ENCOUNTER 2023-12-19 17:57 | Inpatient (IN) | payer MEDICARE, OTHER, SELFPAY ==
[2023-12-19] VITALS (7 sets, daily range): BP systolic 102–161; BP diastolic 68–119; PULSE 88–107; RESP 19–34; TEMP 36.7; O2SAT 94–97; BMI 23.9
--- NOTE | ~2023-12-19 | XR_ITS ---
EXAMINATION: XR chest 1V portable DATE: 12/25/2023 05:57 INDICATION: Shortness of breath. TECHNIQUE: A single frontal view of the chest was obtained on 2 radiographs. COMPARISON: Chest single view 12/20/2023, chest CT 11/14/2023 FINDINGS: The lungs are hyperexpanded with lucencies, consistent with emphysema. There is a calcified nodule in right upper lobe, likely a hamartoma. There is mild scarring in the upper lobes. There are patchy airspace opacities in all left lung zones. No pleural effusion or pneumothorax. The heart siz e is normal. There is an old healed left rib fracture. IMPRESSION: 1. Stable patchy airspace opacities in all left lung zones, consistent with pneumonia. 2. Severe emphysema. Reviewed, dictated and finalized at location A. IMPRESSION: 1. Stable patchy airspace opacities in all left lung zones, consistent with pne umonia. 2. Severe emphysema.
--- NOTE | ~2023-12-19 | XR_ITS ---
EXAMINATION: XR barium swallow modified DATE: 12/27/2023 11:17 INDICATION: Witnessed choking episode. TECHNIQUE: The patient was given barium-containing material of multiple consistencies to swallow by t cait speech pathologist while I performed fluoroscopy. Fluoroscopy exposure time was 1.2 minutes. The n umber of fluoroscopy images saved to the PACS was 1. Dose-area product was 0.852 Gy-cm^2. FINDINGS: The oral stage, pharyngeal stage, and cervical/esophageal stage of the swallow are normal. IMPRESSION: 1. Normal modified barium swallow. 2. Please refer to the speech therapy report for recommendations. Reviewed, dictated and finalized at location A.
--- NOTE | ~2023-12-19 | XR_ITS ---
EXAMINATION: XR chest 1V portable DATE: 12/20/2023 09:18 INDICATION: Pneumonia. TECHNIQUE: A single frontal view of the chest was obtained. COMPARISON: Chest 2 views 12/19/2023, chest CT 11/14/2023 FINDINGS: There are lucencies and interstitial opacities in the lungs, consistent with severe emphyse ma. There are mild airspace opacities in right upper lung zone and all left lung zones. There is a ca lcified nodule in right upper lobe, likely a hamartoma. No pleural effusion or pneumothorax. The hear t size is normal. There is an old healed left rib fracture. IMPRESSION: 1. Stable mild airspace opacities in right upper lung zone and all left lung zones, consistent with p neumonia. 2. Severe emphysema. Reviewed, dictated and finalized at location A. IMPRESSION: 1. Stable mild airspace opacities in right upper lung zone and all left lung zo nata, consistent with pneumonia. 2. Severe emphysema.
--- NOTE | 2023-12-19 17:55 | PC.NURSE ---
This patient, Chilo Cross, was admitted to Intensive Care Unit-7. Patient/family oriented to hospital policies and general routines including ID bracelet, bed and alarms, visiting hours, pain management, procedures, bathroom and other care routines, personal items, smoking policy, room service/diet, and visiting hours. Valuables list has been completed. Information on how to activate the Rapid Response Team has been discussed. Patient/Family are encouraged to report perceived risks to care and to ask questions if they do not understand what they are told or what they should do.
--- NOTE | 2023-12-19 18:01 | PM.IMHP ---
H&P: HPI History of Present Illness Date/Time: 12/19/23 18:45 Chief Complaint: Septic shock, pneumonia. Narrative: This is a very pleasant 73-year-old male with atrial fibrillation on chronic anticoagulation, chronic obstructive pulmonary disease, heart failure with reduced ejection fraction with an EF of 40 to 45%, diastolic dysfunction, coronary artery disease, hypertension, chronic kidney disease, benign prostatic hyperplasia, oral cancer status post resection, and gastroesophageal reflux disease who is being directly admitted to the ICU from the emergency department at the [facility] with septic shock due to pneumonia. He gives a 3 day history of progressive dyspnea on lesser and lesser exertion and worsening cough which has been productive of clear to yellow phlegm. Nebulizers have not provided him with much benefit. Appetite has been poor. Yesterday he had hot and cold sweats. He denies sinus congestion, sore throat, chest and pleuritic pain, hemoptysis, vomiting, orthopnea, lower extremity edema, vomiting, and diarrhea. He also denies dysphagia and concerns for aspiration. No known sick contacts. In the ED: He was afebrile. Blood pressure was as low as 80/59 and he remained hypotensive despite IV fluid rehydration has been started on vasopressors. Labs were significant for WBC count of 27.1 with 4% bands, hemoglobin 13.1, D-dimer 0.058, sodium 134, potassium 4.0, BUN 21, creatinine 1.62, glucose 110, magnesium 1.0, calcium 8.1, lactic acid 1.7, CRP 13.5, proBNP 4219, total protein 6.0, albumin 2.9. He tested negative for influenza, RSV, COVID, and group a strep. Chest x-ray showed new airspace opacities in the posterior mid lung zones, left greater than right, concerning for pneumonia. In addition to 2 L IV fluid bolus, he received 15 mg p.o. midodrine, 500 mg azithromycin, 2 g ceftriaxone, 1 g meropenem, and 4 g of magnesium. Norepinephrine has been weaned from a max of 8 mcg/min. At the time my evaluation he is feeling a bit better and has no complaints. Review of Systems Review of Systems: 12 systems were reviewed and are negative except for as per HPI. [facility] Past Medical History Medical History (Updated 12/19/23 @ 20:33 by Myra Galvan PA-C) Chronic anticoagulation Chronic kidney disease, stage 3 Chronic obstructive pulmonary disease Coronary artery disease Dyslipidemia Former smoker Gastroesophageal reflux disease Heart failure with reduced ejection fraction Echocardiogram in April 2023 showed reduced LV function with an EF of 40 to 45% and abnormal diastolic function. Hypertension Myocardial infarction Evidence of infarct on stress test from September 2018 without reversible ischemia, EF of 37%. Oral cancer Completely excised, no additional treatment required. Osteoporosis Persistent atrial fibrillation Rectal polyp Vitamin D deficiency, unspecified Surgical History Surgical History (Updated 12/19/23 @ 15:28 by Myra Galvan PA-C) History of bilateral cataract extraction History of colonoscopy with polypectomy History of tonsillectomy History of vasectomy Family History Family History Mother Patient's mother is Family history of malignant neoplasm Social History Social History (Updated 12/19/23 @ 20:31 by Myra Galvan PA-C) Social History: Surrogate medical decision maker: Beulah Cross, spouse. Code status: Full code. Smoking packs per day: 1.5 Smoking cigarettes per day: 30.0 Years smoked: 50 Smoking pack-years: 75.00 Smoking status: Former smoker Tobacco type: cigarettes Second hand tobacco smoke exposure: Yes Smoking end date: 10/09/21 Alcohol intake: former Drinks per week: 0 Alcohol use details: Rare alcohol use in moderation. Substance use: never Substance use type: does not use Do You Feel Safe in your Home?: Yes Lack of Transportation: No Lack of Food:
[2023-12-19 18:41] LABS: Anion Gap 9 mmol/L (4-12); Blood Urea Nitrogen 18 mg/dL (9-20); Calcium 8.4 mg/dL (8.4-10.2); Carbon Dioxide 20 mmol/L (22-30); Chloride 107 mmol/L (98-107); Estimated CRCL calculation 51 ml/min; Estimated Glomerular Filt Rate 54; Glucose 99 mg/dL (65-110); Magnesium 2.2 mg/dL (1.6-2.3); Sodium 136 mmol/L (137-145)
[2023-12-19] MEDS: VANCOMYCIN 2,000 MG/NS 500 ML 2,000 MG/500 ML BAG 250 MG IVPB (18:44)
[2023-12-19 19:38] LABS: MRSA (PCR) NOT DETECTED (NOT DETECTE)
[2023-12-19] MEDS: CENTRAL LINE FLUSH 10 ML IV PUSH ×2 (19:55)
[2023-12-19] MEDS: guaiFENesin 12 HR 600 MG TABCR PO (20:52)
[2023-12-19] MEDS: APIXABAN 5 MG TABLET PO (20:52)
[2023-12-19] MEDS: methylPREDNISolone SOD SUCC 125 MG VIAL 80 MG IV PUSH (20:52)
[2023-12-19] MEDS: IPRATROPIUM 0.5 MG/ALBUTEROL SULFATE 2.5 MG AMPUL.NEB 3 ML INHALATION (21:47)
[2023-12-20] VITALS (21 sets, daily range): BP systolic 89–124; BP diastolic 59–73; PULSE 69–100; RESP 15–28; TEMP 36.5–36.9; O2SAT 93–99
[2023-12-20] MEDS: IPRATROPIUM 0.5 MG/ALBUTEROL SULFATE 2.5 MG AMPUL.NEB 3 ML INHALATION ×4 (02:51→20:00)
[2023-12-20 04:41] LABS: Hematocrit 37.8 % (42.0-52.0); Hemoglobin 12.4 g/dL (14.0-18.0); Mean Corpuscular HGB Conc 32.8 g/dl (32-36); Mean Corpuscular Hemoglobin 29.9 pg (26-34); Mean Corpuscular Volume 91.1 fl (80-100); Mean Platelet Volume 9.8 fl (7.4-10.4); Platelet Count Result 153 k/mm3 (150-375); Red Blood Count 4.15 M/mm3 (4.6-6.20); Red Cell Distribution Width 13.7 % (11.5-14.5); White Blood Count 20.8 K/mm3 (4.5-10.0)
[2023-12-20] MEDS: CENTRAL LINE FLUSH 10 ML IV PUSH ×4 (05:04→20:11)
[2023-12-20 05:08] LABS: Alanine Aminotransferase 15 U/L (6-50); Albumin Level 3.1 g/dL (3.5-5.1); Alkaline Phosphatase 83 U/L (38-126); Anion Gap 5 mmol/L (4-12); Aspartate Amino Transferase 33 U/L (17-59); Bilirubin,Total 1.1 mg/dL (0.2-1.3); Blood Urea Nitrogen 16 mg/dL (9-20); Carbon Dioxide 22 mmol/L (22-30); Chloride 104 mmol/L (98-107); Estimated CRCL calculation 55 ml/min; Estimated Glomerular Filt Rate 60; Glucose 147 mg/dL (65-110); Magnesium 1.9 mg/dL (1.6-2.3); Sodium 131 mmol/L (137-145)
[2023-12-20 05:41] LABS: Band Neutrophils Percent 5 % (0-6); Neutrophils Percent Manual 95 % (46-73); Total Cells Counted 100
[2023-12-20 05:42] LABS: Platelet Estimate Adequate (Adequate)
[2023-12-20 05:43] LABS: Anisocytosis 1+; Schistocytes None Seen
[2023-12-20] MEDS: FLUTICASONE/UMECLIDIN/VILANTER 100-62.5-25 MCG ELLIPTA 1 PUFF INHALATION (08:19)
[2023-12-20] MEDS: TAMSULOSIN HCL 0.4 MG CAPSULE PO (08:32)
[2023-12-20] MEDS: PRAVASTATIN SODIUM 20 MG TABLET PO (08:32)
[2023-12-20] MEDS: APIXABAN 5 MG TABLET PO ×2 (08:32→20:11)
[2023-12-20] MEDS: guaiFENesin 12 HR 600 MG TABCR PO ×2 (08:32→20:11)
[2023-12-20] MEDS: PANTOPRAZOLE 40 MG TABLET PO ×2 (08:33→20:11)
[2023-12-20] MEDS: cefTRIAXone 2 GM/NS 100 ML 2 GM/100 ML BAG IVPB (10:57)
[2023-12-20] MEDS: AZITHROMYCIN 500 MG/NS 250 ML 500 MG/250 ML BAG 250 MG IVPB (12:12)
--- NOTE | 2023-12-20 12:50 | WPDCNINT ---
Assessment and Plan Assessment and plan (1) Septic shock: Code(s): A41.9 - Sepsis, unspecified organism; R65.21 - Severe sepsis with septic shock Status: Acute Assessment and Plan: Patient presented with worsening shortness of breath along with productive cough to the [facility] at [facility]. He was found to be hypotensive, with systolic blood pressures in the 80s despite receiving 2 L IV fluid bolus. Central line was inserted and patient was started on Levophed and transfer the ICU at [facility]. Upon arrival to the ICU at [facility] patient's blood pressures were adequate and Levophed was weaned off on the evening of 12/19/2023 -WBC count was 27, lactic acid normal -12/18: Blood cultures, preliminary report is negative x2 -01/04: Sputum cultures negative so far -patient started on ceftriaxone, azithromycin and vancomycin (12/18) -blood pressures have remained stable since that time patient has been admitted to the ICU here at [place] (2) Pneumonia: Qualifiers: Laterality: left Lung location: upper lobe of lung Pneumonia type: due to unspecified organism Qualified Code(s): J18.9 - Pneumonia, unspecified organism Code(s): J18.9 - Pneumonia, unspecified organism Status: Acute Assessment and Plan: Chest x-ray showed bilateral pneumonia left greater than right -continue antibiotics as above -continue bronchodilators (3) A-fib: Qualifiers: Atrial fibrillation type: permanent Qualified Code(s): I48.21 - Permanent atrial fibrillation Code(s): I48.91 - Unspecified atrial fibrillation Status: Acute Assessment and Plan: Patient has history of atrial fibrillation, -continue apixaban, -hold metoprolol since patient was hypotensive, will restart her blood pressures remained stable (4) Heart failure with reduced ejection fraction: Code(s): I50.20 - Unspecified systolic (congestive) heart failure Status: Acute Assessment and Plan: History of heart failure with EF of 40-45%. Currently seems to be compensated -continue to monitor Summary ? 1. Complete two-dimensional, color flow and Doppler transthoracic echocardiogram is performed. ? 2. Left ventricular chamber dimension is mildly enlarged. ? 3. Left ventricular systolic function is moderately reduced, estimated at 40-45%. ? 4. The left ventricular diastolic function is abnormal. ? 5. E/e' 22 is elevated. ? 6. Atrial fibrillation. ? 7. Left atrial chamber dimension is mildly enlarged. ? 8. There is mild aortic valve sclerosis. ? 9. There is mild aortic valve regurgitation. ? 10. There is mild to moderate mitral valve regurgitation. ? 11. There is mild tricuspid valve regurgitation. ? 12. No pulmonary hypertension, estimated pulmonary arterial systolic pressure is 25 mmHg. ? 13. There is trace pulmonic regurgitation. (5) Chronic kidney disease, stage 3: Code(s): N18.30 - Chronic kidney disease, stage 3 unspecified Status: Acute Assessment and Plan: History of chronic kidney disease stage 3 -BUN and creatinine stable at this time -will renally dose antibiotics and medications -avoid nephrotoxic medications -continue to monitor urine output, renal function electrolytes Plan DVT prophylaxis: Apixaban Stress ulcer prophylaxis: Protonix Nutrition: Heart healthy diet Code Status: Full code Critical Care Time Spent: 49 minutes Patient may move out of the ICU Due to a high probability of clinically significant, life threatening deterioration, the patient required my highest level of preparedness to intervene emergently and I personally spent this critical care time directly and personally managing the patient. This critical care time included obtaining a history; examining the patient; pulse oximetry; ordering and review of studies; arranging urgent treatment with development of a management plan; evaluation of patient's response to treatm
[2023-12-20] MEDS: VANCOMYCIN 1,250 MG/NS 250 ML 1,250 MG/250 ML BAG 166.67 MG IVPB (18:11)
[2023-12-21] VITALS (25 sets, daily range): BP systolic 114–175; BP diastolic 66–84; PULSE 82–137; RESP 18–26; TEMP 36.4–36.9; O2SAT 92–99
[2023-12-21] MEDS: IPRATROPIUM 0.5 MG/ALBUTEROL SULFATE 2.5 MG AMPUL.NEB 3 ML INHALATION ×4 (01:35→20:25)
[2023-12-21] MEDS: CENTRAL LINE FLUSH 10 ML IV PUSH ×3 (05:00→22:31)
[2023-12-21 05:01] LABS: Anion Gap 10 mmol/L (4-12); Blood Urea Nitrogen 19 mg/dL (9-20); Calcium 8.5 mg/dL (8.4-10.2); Carbon Dioxide 20 mmol/L (22-30); Chloride 107 mmol/L (98-107); Estimated CRCL calculation 66 ml/min; Estimated Glomerular Filt Rate > 60; Glucose 131 mg/dL (65-110); Potassium 3.8 mmol/L (3.4-5.0); Sodium 137 mmol/L (137-145)
[2023-12-21 06:55] LABS: Hematocrit 39.2 % (42.0-52.0); Hemoglobin 12.5 g/dL (14.0-18.0); Mean Corpuscular HGB Conc 31.9 g/dl (32-36); Mean Corpuscular Hemoglobin 29.6 pg (26-34); Mean Corpuscular Volume 92.7 fl (80-100); Mean Platelet Volume 10.6 fl (7.4-10.4); Platelet Count Result 197 k/mm3 (150-375); Red Blood Count 4.23 M/mm3 (4.6-6.20)
[2023-12-21] MEDS: FLUTICASONE/UMECLIDIN/VILANTER 100-62.5-25 MCG ELLIPTA 1 PUFF INHALATION (08:02)
[2023-12-21] MEDS: guaiFENesin 12 HR 600 MG TABCR PO ×2 (09:44→22:31)
[2023-12-21] MEDS: APIXABAN 5 MG TABLET PO ×2 (09:44→22:31)
[2023-12-21] MEDS: TAMSULOSIN HCL 0.4 MG CAPSULE PO (09:44)
[2023-12-21] MEDS: PANTOPRAZOLE 40 MG TABLET PO ×2 (09:44→22:31)
[2023-12-21] MEDS: PRAVASTATIN SODIUM 20 MG TABLET PO (09:44)
--- NOTE | 2023-12-21 09:52 | PM.CNCAR ---
Assessment and Plan Assessment and plan (1) A-fib: Qualifiers: Atrial fibrillation type: permanent Qualified Code(s): I48.21 - Permanent atrial fibrillation Code(s): I48.91 - Unspecified atrial fibrillation Status: Acute Assessment and Plan: On Eliquis for anticoagulation. Rate was controlled on metoprolol. Will start Diltiazem 60 mg PO every 6 hours with parameters. (2) Septic shock: Code(s): A41.9 - Sepsis, unspecified organism; R65.21 - Severe sepsis with septic shock Status: Acute Assessment and Plan: Due to pneumonia. On antibiotics. Followed by hospitalist. (3) CAD (coronary artery disease): Qualifiers: Coronary Disease-Associated Artery/Lesion type: [place] artery [place] vs. transplanted heart: [place] heart Associated angina: without angina Qualified Code(s): I25.10 - Atherosclerotic heart disease of [place] coronary artery without angina pectoris Code(s): I25.10 - Atherosclerotic heart disease of [place] coronary artery without angina pectoris Status: Acute Assessment and Plan: Stable. (4) PAD (peripheral artery disease): Code(s): I73.9 - Peripheral vascular disease, unspecified Status: Acute Assessment and Plan: Stable. (5) Chronic systolic heart failure: Code(s): I50.22 - Chronic systolic (congestive) heart failure Status: Acute Assessment and Plan: Mild. Euvolemic. (6) Essential (primary) hypertension: Onset Date: 11/02/16 Code(s): I10 - Essential (primary) hypertension Status: Acute Assessment and Plan: High. Start Diltiazem. Monitor. History of Present Illness History of Present Illness Consult date/time: 12/21/23 09:52 Reason For Visit: Sepsis/Pneumonia Narrative: Patient is a 73 yr old man who is my regular cardiology patient presents to [facility] then transferred to [place] for sob.? He has a history of CAD, smoking, COPD (sees Dr. Carmona) and went into atrial fibrillation in Aug 2018, oral cancer resection in October 2021, quit smoking October 2021.? States he was sob and coughing for 3 days prior to admissions. He was diagnosed with septic shock related to pneumonia and BP resolved. His BP is now high with fast HR in atrial fibrillation. Denies chest pain, orthopnea, edema, palpitations. Normally reports coughing with some sputum production intermittently. Reports he can walk 1/2 mile with a walker or cart but only short distance without one due JASSO.? Cardiovascular Procedures Church Organist:: 05/22/[address] Umanzor: LAD with minimal luminal irregularities, LCx mid 90% and 60-70% prox to that, RCA with luminal irregularities. PCI with ROGER to LCx of both lesions. Echo/MUGA:: 04/25/23 Echo: EF 40-45%, mild LVE, diastolic dysfunction (E/e' 22), mild LAE, mild AI/TR, mild-mod MR, trace PI. 03/19/22 Echo: EF 45-50%, mild LVE, mild LAE, mild AI/TR, trace MR/PI. 01/27/[address] Taylor: EF 30%, mild VE, mild MAC, mild-mod MR, mild (BARBARA 1.6 cm2), mild AI/TR, RVSP 40 mmHg. Echo (EF 45-50%, mild LVE, mod WILMER, mild AI/MR, mild-mod TR, trace PI.) - 03/27/2019 Echo (EF 40%, mild LVE, mod global LV systolic dysfunction, diastolic dysfunction (E/E' 10), atrial fib, mild RV systolic dysfunction based on TAPSE 1.6 cm, mild LAE, mild MR/TR.) - 09/20/2018 Electrophysiology:: 06/23/21 EKG: Atrial fibrillation at 90 bpm. 05/25/21 EKG: Atrial fibrillation at 81 bpm, PVC's, IRBBB, borderline T wave in high lateral leads. 12/21/20 EKG: Atrial fibrillation, anteroseptal infarct, consider inferior infarct, age indeterminate. 05/06/20 EKG: Atrial fibrillation at 88 bpm, IRBBB. 08/21/19 JUANITO/DC Cardioversion: Successful to restore sinus rhythm. EKG (Atrial fib with RVR at 112 bpm.) - 08/22/2018 Stress Tests:: 10/12/19 ABBIE: Right 0.51 and left 0.75. MPI (Lexiscan myoview: Negative for ischemia. Mod-large apical infarct. EF 37%.) - 09/27/[address] (Severe emphysema.) - 07/14/2016
[2023-12-21] MEDS: dilTIAZem HCL 60 MG TABLET PO ×2 (11:41→18:56)
[2023-12-21] MEDS: cefTRIAXone 2 GM/NS 100 ML 2 GM/100 ML BAG IVPB (11:42)
[2023-12-21] MEDS: AZITHROMYCIN 500 MG/NS 250 ML 500 MG/250 ML BAG 250 MG IVPB (12:00)
--- NOTE | 2023-12-21 15:19 | PM.IMPN ---
Progress Note: A&P Assessment and Plan (1) Septic shock: Code(s): A41.9 - Sepsis, unspecified organism; R65.21 - Severe sepsis with septic shock Status: Acute (2) Pneumonia: Qualifiers: Laterality: left Lung location: upper lobe of lung Pneumonia type: due to unspecified organism Qualified Code(s): J18.9 - Pneumonia, unspecified organism Code(s): J18.9 - Pneumonia, unspecified organism Status: Acute Assessment and Plan: Pt transferred out to of ICU of vasopressors Continue iv Rocephin and iv Zithromax Start Robitussin cough syrup (3) Hypomagnesemia: Code(s): E83.42 - Hypomagnesemia Status: Inactive Assessment and Plan: Watch mg levels Replace as necessary (4) Atrial fibrillation with rapid ventricular response: Code(s): I48.91 - Unspecified atrial fibrillation Status: Inactive Assessment and Plan: Pt went into fast AF today cardiology consulted Pt had iv metoprolol this am Pt to start Cardizem drip (5) Heart failure with reduced ejection fraction: Code(s): I50.20 - Unspecified systolic (congestive) heart failure Status: Acute Assessment and Plan: Pt is DR Gao pt Echo ordered (6) Chronic anticoagulation: Code(s): 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 Status: Acute Assessment and Plan: Pt is on eliquis (7) Chronic kidney disease, stage 3: Code(s): N18.30 - Chronic kidney disease, stage 3 unspecified Status: Acute Assessment and Plan: Watch kidney function Plan Subjective Date/time seen: 12/21/23 15:19 Interval history: 73-year-old male with atrial fibrillation on chronic anticoagulation, chronic obstructive pulmonary disease, heart failure with reduced ejection fraction with an EF of 40 to 45%, diastolic dysfunction, coronary artery disease, hypertension, chronic kidney disease, benign prostatic hyperplasia, oral cancer status post resection, and gastroesophageal reflux disease who is being directly admitted to the ICU from the emergency department at the [facility] with septic shock due to pneumonia. He gives a 3 day history of progressive dyspnea on lesser and lesser exertion and worsening cough which has been productive of clear to yellow phlegm. Pt transferred from the floor went into AF with RVR Review of Systems Review of Systems: Pt having a bad cough today AF is more controlled now Exam Narrative: General: Mildly ill-appearing gentleman sitting up in bed with bad cough Respiratory: BL wheezy lungs Cardiovascular: Irregularly irregular rate and rhythm. Gastrointestinal: Abdomen is soft, nontender, and nondistended with positive bowel sounds. Skin: Warm and dry. No rash or lesions on limited exam. Extremities: No cyanosis, clubbing, or edema. Radial and pedal pulses intact. No palpable knots or cords. Neurological: Alert. Cranial nerves 2-12 are grossly intact. No gross focal deficits to casual conversation. Psychiatric: Pleasant and cooperative with normal mood and affect. Judgment and insight intact. He is in good spirits. Objective Data Vital Signs Vital Signs: Vital Signs - 24 hr 12/20/23 16:00 12/20/23 16:00 12/20/23 16:00 Temperature 36.6 C Pulse Rate 91 91 Respiratory Rate 26 H Blood Pressure 116/69 Pulse Oximetry 98 Oxygen Delivery Room Air Oxygen Flow Rate 12/20/23 18:00 12/20/23 20:00 12/20/23 20:00 Temperature Pulse Rate 90 96 96 Respiratory Rate 22 H 20 Blood Pressure Pulse Oximetry 97 Oxygen Delivery Room Air Oxygen Flow Rate 12/20/23 20:07 12/20/23 20:00 12/20/23 20:00 Temperature 36.6 C Pulse Rate 95 86 86 Respiratory Rate 20 22 H Blood Pressure 111/70 Pulse Oximetry 99 Oxygen Delivery Oxygen Flow Rate 12/20/23 22:00 12/20/23 23:36 12/21/23 01:00 Temperature 36.6 C Pulse Rate 90 95 90 Respiratory
--- NOTE | 2023-12-21 18:42 | PC.NURSE ---
Pt complaining of left sided chest pain with labored breathing. BP 146/82, HR 102, O2 97% on 1L respirations 30. Notified Dr. Miles. Order for [place] .
[2023-12-21] MEDS: HYDROcodone/acetaminophen (*CRX) 5-325 MG TABLET 1 TAB PO (18:57)
[2023-12-21] MEDS: guaiFENesin/DEXTROMETHORPHAN 10 ML UDC PO (22:31)
[2023-12-22] VITALS (30 sets, daily range): BP systolic 124–156; BP diastolic 39–94; PULSE 70–120; RESP 16–96; TEMP 36.3–37.2; O2SAT 93–98
[2023-12-22] MEDS: dilTIAZem HCL 60 MG TABLET PO ×5 (00:38→23:32)
[2023-12-22] MEDS: HYDROcodone/acetaminophen (*CRX) 5-325 MG TABLET 1 TAB PO (00:39)
[2023-12-22] MEDS: IPRATROPIUM 0.5 MG/ALBUTEROL SULFATE 2.5 MG AMPUL.NEB 3 ML INHALATION ×4 (02:28→20:30)
[2023-12-22 05:17] LABS: Anion Gap 6 mmol/L (4-12); Blood Urea Nitrogen 19 mg/dL (9-20); Calcium 8.1 mg/dL (8.4-10.2); Carbon Dioxide 25 mmol/L (22-30); Chloride 103 mmol/L (98-107); Estimated CRCL calculation 55 ml/min; Estimated Glomerular Filt Rate 60; Glucose 103 mg/dL (65-110); Magnesium 1.5 mg/dL (1.6-2.3); Potassium 3.9 mmol/L (3.4-5.0); Sodium 134 mmol/L (137-145)
[2023-12-22] MEDS: CENTRAL LINE FLUSH 10 ML IV PUSH (06:24)
--- NOTE | 2023-12-22 08:03 | PM.PNCARD ---
Progress Note: A&P Assessment and Plan (1) A-fib: Qualifiers: Atrial fibrillation type: permanent Qualified Code(s): I48.21 - Permanent atrial fibrillation Code(s): I48.91 - Unspecified atrial fibrillation Status: Acute Assessment and Plan: On Eliquis for anticoagulation. Rate was controlled on metoprolol. Started Diltiazem 60 mg PO every 6 hours with parameters. Monitor HR. (2) Septic shock: Code(s): A41.9 - Sepsis, unspecified organism; R65.21 - Severe sepsis with septic shock Status: Acute Assessment and Plan: Resolved. Due to pneumonia. On antibiotics. Followed by hospitalist. (3) CAD (coronary artery disease): Qualifiers: Coronary Disease-Associated Artery/Lesion type: [place] artery [place] vs. transplanted heart: [place] heart Associated angina: without angina Qualified Code(s): I25.10 - Atherosclerotic heart disease of [place] coronary artery without angina pectoris Code(s): I25.10 - Atherosclerotic heart disease of [place] coronary artery without angina pectoris Status: Acute Assessment and Plan: Stable. (4) PAD (peripheral artery disease): Code(s): I73.9 - Peripheral vascular disease, unspecified Status: Acute Assessment and Plan: Stable. (5) Chronic systolic heart failure: Code(s): I50.22 - Chronic systolic (congestive) heart failure Status: Acute Assessment and Plan: Mild. Euvolemic. (6) Essential (primary) hypertension: Onset Date: 11/02/16 Code(s): I10 - Essential (primary) hypertension Status: Acute Assessment and Plan: Improved. Started Diltiazem. Monitor. Subjective Date/time seen: 12/22/23 08:03 Interval history: He has sob and worse with exertion. No chest pains. Exam Const: General: cooperative, healthy appearing and comfortable Orientation/consciousness: oriented to person, oriented to place and oriented to time Resp: Auscultation: no rales, no wheezes and breath sounds absent Cardio: Rate: tachycardic Rhythm: abnormal rhythm Heart sounds: no murmurs Peripheral pulses: dorsalis pedis present Neuro: General: oriented to person, oriented to place and oriented to time Extrem: Right lower extremity: no edema Left lower extremity: no edema Objective Data Vital Signs Vital Signs: Vital Signs - 24 hr 12/21/23 08:13 12/21/23 08:51 12/21/23 10:00 Temperature 97.5 F L Pulse Rate 102 H 137 H 117 H Respiratory Rate 20 22 H Blood Pressure 175/81 H Pulse Oximetry 92 Oxygen Delivery Oxygen Flow Rate 12/21/23 11:47 12/21/23 12:00 12/21/23 12:00 Temperature 98.2 F Pulse Rate 96 121 H Respiratory Rate 18 Blood Pressure 135/74 Pulse Oximetry 95 99 Oxygen Delivery Nasal Cannula Oxygen Flow Rate 2 12/21/23 08:35 12/21/23 15:12 12/21/23 12:00 Temperature Pulse Rate 98 Respiratory Rate 20 Blood Pressure Pulse Oximetry 95 99 Oxygen Delivery Nasal Cannula Nasal Cannula Oxygen Flow Rate 2 2 12/21/23 15:21 12/21/23 16:02 12/21/23 16:00 Temperature 98.5 F Pulse Rate 98 90 Respiratory Rate 20 23 H Blood Pressure 141/71 H Pulse Oximetry 99 98 Oxygen Delivery Nasal Cannula Oxygen Flow Rate 2 12/21/23 16:00 12/21/23 16:00 12/21/23 18:00 Temperature Pulse Rate 104 H 104 H 96 Respiratory Rate 23 H Blood Pressure Pulse Oximetry 97 Oxygen Delivery Nasal Cannula Oxygen Flow Rate 1 12/21/23 20:25 12/21/23 20:34 12/21/23 20:34 Temperature Pulse Rate 96 92 Respiratory Rate 20 20 Blood Pressure Pulse Oximetry 97 Oxygen Delivery Nasal Cannula Oxygen Flow Rate 1 12/21/23 20:34 12/21/23 20:00 12/21/23 20:00 Temperature 97.6 F Pulse Rate 99 92 Respiratory Rate 24 H Blood Pressure 125/68 Pulse Oximetry 94 94 Oxygen Delivery Nasal Cannula Oxygen Flow Rate 1 12/21/23 22:00 12/22/23 00:17 12/22/23 00:00 Temperature 97.7 F
[2023-12-22] MEDS: guaiFENesin 12 HR 600 MG TABCR PO ×2 (08:35→20:26)
[2023-12-22] MEDS: PRAVASTATIN SODIUM 20 MG TABLET PO (08:35)
[2023-12-22] MEDS: TAMSULOSIN HCL 0.4 MG CAPSULE PO (08:35)
[2023-12-22] MEDS: PANTOPRAZOLE 40 MG TABLET PO ×2 (08:35→20:26)
[2023-12-22] MEDS: APIXABAN 5 MG TABLET PO ×2 (08:35→20:26)
[2023-12-22] MEDS: guaiFENesin/DEXTROMETHORPHAN 10 ML UDC PO ×3 (08:39→23:32)
[2023-12-22] MEDS: FLUTICASONE/UMECLIDIN/VILANTER 100-62.5-25 MCG ELLIPTA 1 PUFF INHALATION (08:45)
[2023-12-22] MEDS: cefTRIAXone 2 GM/NS 100 ML 2 GM/100 ML BAG IVPB (12:06)
[2023-12-22] MEDS: AZITHROMYCIN 500 MG/NS 250 ML 500 MG/250 ML BAG 250 MG IVPB (12:06)
--- NOTE | 2023-12-22 12:06 | PM.IMPN ---
Progress Note: A&P Assessment and Plan (1) Septic shock: Code(s): A41.9 - Sepsis, unspecified organism; R65.21 - Severe sepsis with septic shock Status: Acute (2) Pneumonia: Qualifiers: Laterality: left Lung location: upper lobe of lung Pneumonia type: due to unspecified organism Qualified Code(s): J18.9 - Pneumonia, unspecified organism Code(s): J18.9 - Pneumonia, unspecified organism Status: Acute Assessment and Plan: Pt transferred out to of ICU of vasopressors pt growing pseudomaonas change iV ABX regime Start Robitussin cough syrup (3) Hypomagnesemia: Code(s): E83.42 - Hypomagnesemia Status: Inactive Assessment and Plan: Watch mg levels Replace as necessary watch bmp (4) Atrial fibrillation with rapid ventricular response: Code(s): I48.91 - Unspecified atrial fibrillation Status: Inactive Assessment and Plan: Pt went into fast AF today cardiology consulted Pt had iv metoprolol this am Pt to start Cardizem drip transitioned to oral cardizem now (5) Heart failure with reduced ejection fraction: Code(s): I50.20 - Unspecified systolic (congestive) heart failure Status: Acute Assessment and Plan: Pt is DR Gao pt Echo ordered (6) Chronic anticoagulation: Code(s): Z79.01 - 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 Status: Acute Assessment and Plan: Pt is on eliquis (7) Chronic kidney disease, stage 3: Code(s): N18.30 - Chronic kidney disease, stage 3 unspecified Status: Acute Assessment and Plan: Watch kidney function Plan Subjective Date/time seen: 12/22/23 12:06 Interval history: 73-year-old male with atrial fibrillation on chronic anticoagulation, chronic obstructive pulmonary disease, heart failure with reduced ejection fraction with an EF of 40 to 45%, diastolic dysfunction, coronary artery disease, hypertension, chronic kidney disease, benign prostatic hyperplasia, oral cancer status post resection, and gastroesophageal reflux disease who is being directly admitted to the ICU from the emergency department at the [facility] [place] [place] with septic shock due to pneumonia. He gives a 3 day history of progressive dyspnea on lesser and lesser exertion and worsening cough which has been productive of clear to yellow phlegm. Pt transferred from the floor went into AF with RVR now back to [facility] [place] [id number] going up Pt is still coughing and feels unwell D/w Pharm ID Pseudomonas growing change IV ABX Review of Systems Review of Systems: cough sob does not feel well Exam Narrative: General: Mildly ill-appearing gentleman sitting up in bed with bad cough Respiratory: BL wheezy lungs Cardiovascular: Irregularly irregular rate and rhythm. Gastrointestinal: Abdomen is soft, nontender, and nondistended with positive bowel sounds. Skin: Warm and dry. No rash or lesions on limited exam. Extremities: No cyanosis, clubbing, or edema. Radial and pedal pulses intact. No palpable knots or cords. Neurological: Alert. Cranial nerves 2-12 are grossly intact. No gross focal deficits to casual conversation. Psychiatric: Pleasant and cooperative with normal mood and affect. Judgment and insight intact. He is in good spirits. Objective Data Vital Signs Vital Signs: Vital Signs - 24 hr 12/21/23 15:12 12/21/23 15:21 12/21/23 16:02 Temperature Pulse Rate 98 98 Respiratory Rate 20 20 Blood Pressure Pulse Oximetry 99 Oxygen Delivery Nasal Cannula Oxygen Flow Rate 2 12/21/23 16:00 12/21/23 16:00 12/21/23 16:00 Temperature 36.9 C Pulse Rate 90 104 H 104 H Respiratory Rate 23 H 23 H Blood Pressure 141/71 H Pulse Oximetry 98 97 Oxygen Delivery Nasal Cannula Oxygen Flow Rate 1 12/21/23 18:00 12/21/23 20:25 12/21/23 20:34 Temperature Pulse Rate 96 96 92 Respiratory R
[2023-12-22] MEDS: CEFEPIME 2 GM/NS 50 ML 2 GM/50 ML BAG IVPB ×2 (13:15→20:26)
[2023-12-23] VITALS (26 sets, daily range): BP systolic 90–153; BP diastolic 53–78; PULSE 74–106; RESP 16–24; TEMP 36.1–36.8; O2SAT 91–98
[2023-12-23] MEDS: IPRATROPIUM 0.5 MG/ALBUTEROL SULFATE 2.5 MG AMPUL.NEB 3 ML INHALATION ×4 (02:10→20:44)
[2023-12-23] MEDS: guaiFENesin/DEXTROMETHORPHAN 10 ML UDC PO ×3 (05:05→18:08)
[2023-12-23] MEDS: dilTIAZem HCL 60 MG TABLET PO ×2 (05:05→09:04)
[2023-12-23 05:19] LABS: Anion Gap 9 mmol/L (4-12); Blood Urea Nitrogen 12 mg/dL (9-20); Calcium 8.8 mg/dL (8.4-10.2); Carbon Dioxide 23 mmol/L (22-30); Chloride 99 mmol/L (98-107); Estimated CRCL calculation 66 ml/min; Estimated Glomerular Filt Rate > 60; Glucose 107 mg/dL (65-110); Magnesium 1.4 mg/dL (1.6-2.3); Potassium 3.7 mmol/L (3.4-5.0); Sodium 131 mmol/L (137-145)
[2023-12-23 05:36] LABS: Hematocrit 39.1 % (42.0-52.0); Hemoglobin 12.7 g/dL (14.0-18.0); Mean Corpuscular HGB Conc 32.5 g/dl (32-36); Mean Corpuscular Hemoglobin 29.3 pg (26-34); Mean Corpuscular Volume 90.3 fl (80-100); Mean Platelet Volume 10.3 fl (7.4-10.4); Platelet Count Result 208 k/mm3 (150-375); Red Blood Count 4.33 M/mm3 (4.6-6.20); Red Cell Distribution Width 13.4 % (11.5-14.5); White Blood Count 15.8 K/mm3 (4.5-10.0)
--- NOTE | 2023-12-23 07:49 | PM.PNCARD ---
Progress Note: A&P Assessment and Plan (1) A-fib: Qualifiers: Atrial fibrillation type: permanent Qualified Code(s): I48.21 - Permanent atrial fibrillation Code(s): I48.91 - Unspecified atrial fibrillation Status: Acute Assessment and Plan: On Eliquis for anticoagulation. Rate was controlled on metoprolol. HR improved. Increase Diltiazem 90 mg PO every 6 hours with parameters. Monitor HR. (2) Septic shock: Code(s): A41.9 - Sepsis, unspecified organism; R65.21 - Severe sepsis with septic shock Status: Acute Assessment and Plan: Resolved. Due to pneumonia. On antibiotics. Followed by hospitalist. (3) CAD (coronary artery disease): Qualifiers: Coronary Disease-Associated Artery/Lesion type: [place] artery [place] vs. transplanted heart: [place] heart Associated angina: without angina Qualified Code(s): I25.10 - Atherosclerotic heart disease of [place] coronary artery without angina pectoris Code(s): I25.10 - Atherosclerotic heart disease of [place] coronary artery without angina pectoris Status: Acute Assessment and Plan: Stable. (4) PAD (peripheral artery disease): Code(s): I73.9 - Peripheral vascular disease, unspecified Status: Acute Assessment and Plan: Stable. (5) Chronic systolic heart failure: Code(s): I50.22 - Chronic systolic (congestive) heart failure Status: Acute Assessment and Plan: Mild. Euvolemic. (6) Essential (primary) hypertension: Onset Date: 11/02/16 Code(s): I10 - Essential (primary) hypertension Status: Acute Assessment and Plan: Improved. On Diltiazem. Monitor. Subjective Date/time seen: 12/23/23 07:49 Interval history: He has sob and worse with exertion. No chest pains. Exam Const: General: cooperative, healthy appearing and comfortable Orientation/consciousness: oriented to person, oriented to place and oriented to time Resp: Auscultation: no rales, wheezes and breath sounds absent Cardio: Rate: regular rate Rhythm: abnormal rhythm Heart sounds: no murmurs Peripheral pulses: dorsalis pedis present Neuro: General: oriented to person, oriented to place and oriented to time Extrem: Right lower extremity: no edema Left lower extremity: no edema Objective Data Vital Signs Vital Signs: Vital Signs - 24 hr 12/22/23 08:11 12/22/23 08:46 12/22/23 08:47 Temperature 98.9 F Pulse Rate 94 89 Respiratory Rate 24 H 23 H Blood Pressure 145/68 H Pulse Oximetry 95 93 Oxygen Delivery Nasal Cannula Oxygen Flow Rate 1 12/22/23 08:00 12/22/23 08:00 12/22/23 11:16 Temperature 98.8 F Pulse Rate 91 88 Respiratory Rate 16 Blood Pressure 128/75 Pulse Oximetry 97 95 Oxygen Delivery Nasal Cannula Oxygen Flow Rate 1 12/22/23 10:00 12/22/23 12:00 12/22/23 13:21 Temperature Pulse Rate 107 H 98 98 Respiratory Rate 20 Blood Pressure Pulse Oximetry Oxygen Delivery Oxygen Flow Rate 12/22/23 13:28 12/22/23 12:00 12/22/23 14:37 Temperature Pulse Rate 102 H Respiratory Rate 20 Blood Pressure Pulse Oximetry 94 Oxygen Delivery Room Air Room Air Oxygen Flow Rate 12/22/23 15:47 12/22/23 14:00 12/22/23 16:00 Temperature 98.2 F Pulse Rate 105 H 106 H 104 H Respiratory Rate 96 H Blood Pressure 144/74 H Pulse Oximetry 98 Oxygen Delivery Oxygen Flow Rate 12/22/23 16:00 12/22/23 18:00 12/22/23 20:30 Temperature Pulse Rate 101 H 104 H Respiratory Rate 24 H Blood Pressure Pulse Oximetry 98 Oxygen Delivery Room Air Oxygen Flow Rate 12/22/23 20:35 12/22/23 20:37 12/22/23 20:40 Temperature 97.9 F Pulse Rate 117 H 120 H Respiratory Rate 24 H 24 H Blood Pressure 156/94 H Pulse Oximetry 94 95 Oxygen Delivery Nasal Cannula Oxygen Flow Rate 4 12/22/23 20:00 12/22/23 20:00 12/22/23 21:46 Temperature Pulse Rate 99 99 101 H
[2023-12-23] MEDS: FLUTICASONE/UMECLIDIN/VILANTER 100-62.5-25 MCG ELLIPTA 1 PUFF INHALATION (08:12)
--- NOTE | 2023-12-23 08:54 | PM.IMPN ---
Progress Note: A&P Assessment and Plan (1) Septic shock: Code(s): A41.9 - Sepsis, unspecified organism; R65.21 - Severe sepsis with septic shock Status: Acute (2) Pneumonia: Qualifiers: Laterality: left Lung location: upper lobe of lung Pneumonia type: due to unspecified organism Qualified Code(s): J18.9 - Pneumonia, unspecified organism Code(s): J18.9 - Pneumonia, unspecified organism Status: Acute (3) Hypomagnesemia: Code(s): E83.42 - Hypomagnesemia Status: Inactive (4) Atrial fibrillation with rapid ventricular response: Code(s): I48.91 - Unspecified atrial fibrillation Status: Inactive (5) Heart failure with reduced ejection fraction: Code(s): I50.20 - Unspecified systolic (congestive) heart failure Status: Acute (6) Chronic anticoagulation: Code(s): 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 with progressive dyspnea, worsening cough which has been productive of clear to yellow sputum.? At the outside hospital he denies any sore throat, chest pain, pleuritic pain, hemoptysis, nausea, vomiting.? No sick contacts.? His systolic blood pressures at the outside hospital in the 80s, and despite 2 L IV fluids he was hypotensive, central line was placed and started on vasopressors and transferred to the ICU at [facility] for further management.? His WBC count was 27.1, lactic acid 1.7, creatinine was elevated to 1.62 and magnesium was 1.0.? COVID-19, influenza and RSV were negative.? Patient was started on ceftriaxone, azithromycin and vancomycin.? Upon arrival to [place] ICU, patient's blood pressures were adequate and his Levophed was discontinued. Chest x-ray showed bilateral pneumonia left greater than right and treated as pneumonia with antibiotics as above. Leukocytosis improving but still persistent. Respiratory cultures still growing Pseudomonas aeruginosa. Antibiotics has been switched to cefepime. Sensitivities pending. Mild hyponatremia and hypomagnesia replace and monitor magnesium level Atrial fibrillation chronic with AFib with RVR on apixaban initially metoprolol on hold cardiology on board Metoprolol restarted and also added on Cardizem, history of cardioversion converted back to AFib 2 months after being cardioverted. BPH with obstructive symptoms. Bladder scanner not reliably presenting however signs and symptoms suggest urinary retention straight catheterization was performed 800 cc of urine was removed. Will increase Flomax to twice daily. Monitor with bladder scan as needed Heart failure with reduced ejection fraction EF 40-45%. CKD stage 3 DVT prophylaxis apixaban Code status full code Subjective Date/time seen: 12/23/23 08:54 Interval history: Having some discomfort in lower abdomen reports he has been dribbling all night long. Gets anxious and not able to sleep at night. Heart rate mildly shortness of breath is improving still has cough Review of Systems Review of Systems: All systems reviewed & are unremarkable except as noted in HPI and below Exam Narrative: General: Mildly ill-appearing gentleman sitting up on the chair not in acute distress Respiratory: Coarse breath sound bilaterally rhonchi heard Cardiovascular: Irregularly irregular rate and rhythm. Tachycardic Gastrointestinal: Abdomen is soft, mild suprapubic tenderness with distention, positive bowel sounds. Skin: W
[2023-12-23] MEDS: dilTIAZem HCL 30 MG TABLET PO ×3 (09:03→18:05)
[2023-12-23] MEDS: TAMSULOSIN HCL 0.4 MG CAPSULE PO ×2 (09:03→20:50)
[2023-12-23] MEDS: CEFEPIME 2 GM/NS 50 ML 2 GM/50 ML BAG IVPB (09:04)
[2023-12-23] MEDS: APIXABAN 5 MG TABLET PO ×2 (09:04→20:51)
[2023-12-23] MEDS: PRAVASTATIN SODIUM 20 MG TABLET PO (09:04)
[2023-12-23] MEDS: guaiFENesin 12 HR 600 MG TABCR PO ×2 (09:04→20:51)
[2023-12-23] MEDS: AZITHROMYCIN 250 MG TABLET 500 MG PO (09:04)
[2023-12-23] MEDS: PANTOPRAZOLE 40 MG TABLET PO ×2 (09:04→20:50)
[2023-12-23] MEDS: MAGNESIUM SULF 2 GM/WATER 50ML 2 GM/50 ML BAG IVPB (10:07)
[2023-12-23 15:48] LABS: Appearance Urine Clear (Clear); Bacteria Urine None Seen /hpf; Bilirubin Urine Negative (Negative); Blood Urine 2+ (Negative); Color Urine Yellow (Yellow); Glucose Urine UA Negative (Negative); Ketones Urine 1+ mg/dL (Negative); Leukocyte Esterase Ur Negative LEU/UL (Negative); Nitrate Urine Negative (Negative); Non Pathogenic Casts 0-2; Protein Urine Trace mg/dL (Negative); RBC Urine 21-50 /hpf (0-2); Specific Grav Ur 1.011 (1.001-1.035); Squamous Epithelial Cell Urine None Seen /hpf (Few); Urobilinogen Urine 0.2 mg/dL (<2.0); WBC Urine 0-5 /hpf (0-3)
[2023-12-23 15:55] LABS: Add Urine Microscopic? YES
[2023-12-23 16:24] LABS: Pneumococcal Antigen Urine NOT DETECTED
[2023-12-23] MEDS: levoFLOXacin 750 MG TABLET PO (20:51)
[2023-12-24] VITALS (25 sets, daily range): BP systolic 96–141; BP diastolic 42–74; PULSE 68–96; RESP 16–28; TEMP 36.3–36.8; O2SAT 90–97
[2023-12-24] MEDS: dilTIAZem HCL 30 MG TABLET PO ×4 (01:17→06:25)
[2023-12-24] MEDS: IPRATROPIUM 0.5 MG/ALBUTEROL SULFATE 2.5 MG AMPUL.NEB 3 ML INHALATION ×4 (02:48→20:41)
[2023-12-24 04:37] LABS: Basophils Percent Auto 0.2 % (0.2-1.2); Eosinophils Absolute Auto 0.3 K/mm3 (0-0.3); Eosinophils Percent Auto 1.7 % (0-4.4); Hematocrit 35.2 % (42.0-52.0); Hemoglobin 11.4 g/dL (14.0-18.0); Immature Granulocyte Absolute 0.15 K/mm3 (0.00-0.031); Immature Granulocyte Percent A 0.9 % (0-0.5); Lymphocytes Absolute Auto 0.66 K/mm3 (0.9-3.2); Lymphocytes Percent Auto 3.9 % (18.3-44.2); Mean Corpuscular HGB Conc 32.4 g/dl (32-36); Mean Corpuscular Hemoglobin 29.2 pg (26-34); Mean Corpuscular Volume 90.3 fl (80-100); Mean Platelet Volume 9.6 fl (7.4-10.4); Monocytes Absolute Auto 1.3 K/mm3 (0.1-0.6); Monocytes Percent Auto 7.7 % (2.6-8.5); Neutrophils Absolute Auto 14.5 K/mm3 (1.3-6.7); Neutrophils Percent Auto 85.6 % (45.5-73.1); Platelet Count Result 234 k/mm3 (150-375); Red Cell Distribution Width 13.4 % (11.5-14.5); White Blood Count 16.9 K/mm3 (4.5-10.0)
[2023-12-24 04:47] LABS: Alanine Aminotransferase 37 U/L (6-50); Albumin Level 3.1 g/dL (3.5-5.1); Alkaline Phosphatase 92 U/L (38-126); Anion Gap 6 mmol/L (4-12); Aspartate Amino Transferase 39 U/L (17-59); Bilirubin,Total 1.1 mg/dL (0.2-1.3); Blood Urea Nitrogen 9 mg/dL (9-20); Calcium 8.5 mg/dL (8.4-10.2); Carbon Dioxide 28 mmol/L (22-30); Chloride 98 mmol/L (98-107); Estimated CRCL calculation 66 ml/min; Estimated Glomerular Filt Rate > 60; Glucose 118 mg/dL (65-110); Magnesium 1.8 mg/dL (1.6-2.3); Potassium 3.6 mmol/L (3.4-5.0); Sodium 132 mmol/L (137-145)
--- NOTE | 2023-12-24 06:48 | PM.PNCARD ---
Progress Note: A&P Assessment and Plan (1) A-fib: Qualifiers: Atrial fibrillation type: permanent Qualified Code(s): I48.21 - Permanent atrial fibrillation Code(s): I48.91 - Unspecified atrial fibrillation Status: Acute Assessment and Plan: On Eliquis for anticoagulation. Rate was controlled on metoprolol at home. HR improved. Decrease Diltiazem 60 mg PO every 6 hours with parameters. Monitor HR. (2) Septic shock: Code(s): A41.9 - Sepsis, unspecified organism; R65.21 - Severe sepsis with septic shock Status: Acute Assessment and Plan: Resolved. Due to pneumonia. On antibiotics. Followed by hospitalist. (3) CAD (coronary artery disease): Qualifiers: Coronary Disease-Associated Artery/Lesion type: [place] artery [place] vs. transplanted heart: campo heart Associated angina: without angina Qualified Code(s): I25.10 - Atherosclerotic heart disease of campo coronary artery without angina pectoris Code(s): I25.10 - Atherosclerotic heart disease of campo coronary artery without angina pectoris Status: Acute Assessment and Plan: Stable. (4) PAD (peripheral artery disease): Code(s): I73.9 - Peripheral vascular disease, unspecified Status: Acute Assessment and Plan: Stable. (5) Chronic systolic heart failure: Code(s): I50.22 - Chronic systolic (congestive) heart failure Status: Acute Assessment and Plan: Mild. Euvolemic. (6) Essential (primary) hypertension: Onset Date: 11/02/16 Code(s): I10 - Essential (primary) hypertension Status: Acute Assessment and Plan: Stable. On Diltiazem. Monitor. Subjective Date/time seen: 12/24/23 06:48 Interval history: He has sob and worse with exertion. No chest pains. Exam Const: General: cooperative, healthy appearing and comfortable Orientation/consciousness: oriented to person, oriented to place and oriented to time Resp: Auscultation: no rales and breath sounds absent Cardio: Rate: regular rate Rhythm: abnormal rhythm Heart sounds: no murmurs Peripheral pulses: dorsalis pedis present Neuro: General: oriented to person, oriented to place and oriented to time Extrem: Right lower extremity: no edema Left lower extremity: no edema Objective Data Vital Signs Vital Signs: Vital Signs - 24 hr 12/23/23 07:56 12/23/23 08:05 12/23/23 08:13 Temperature 98.1 F Pulse Rate 101 H 101 H Respiratory Rate 24 H 22 H Blood Pressure 153/78 H Pulse Oximetry 96 95 Oxygen Delivery Nasal Cannula Oxygen Flow Rate 3 12/23/23 08:00 12/23/23 08:00 12/23/23 10:00 Temperature Pulse Rate 104 H 90 Respiratory Rate Blood Pressure Pulse Oximetry 91 Oxygen Delivery Nasal Cannula Oxygen Flow Rate 2 12/23/23 11:36 12/23/23 12:00 12/23/23 12:00 Temperature 98.2 F Pulse Rate 84 92 Respiratory Rate 24 H Blood Pressure 116/63 Pulse Oximetry 95 98 Oxygen Delivery Nasal Cannula Oxygen Flow Rate 2 12/23/23 12:57 12/23/23 14:00 12/23/23 15:55 Temperature 97.5 F L Pulse Rate 103 H 89 97 Respiratory Rate 20 16 Blood Pressure 90/56 L Pulse Oximetry 97 Oxygen Delivery Oxygen Flow Rate 12/23/23 16:02 12/23/23 16:00 12/23/23 16:00 Temperature Pulse Rate 85 Respiratory Rate Blood Pressure 113/56 L Pulse Oximetry 95 Oxygen Delivery Nasal Cannula Oxygen Flow Rate 2 12/23/23 18:00 12/23/23 20:13 12/23/23 20:47 Temperature 97.8 F Pulse Rate 85 84 75 Respiratory Rate 16 20 Blood Pressure 104/53 L Pulse Oximetry 95 Oxygen Delivery Oxygen Flow Rate 12/23/23 20:48 12/23/23 20:53 12/23/23 23:25 Temperature Pulse Rate 74 Respiratory Rate 20 Blood Pressure Pulse Oximetry 93 96 Oxygen Delivery Nasal Cannula Nasal Cannula Oxygen Flow Rate 1 2 12/24/23 00:00 12/23/23 20:00 12/23/23 20:00 Temperature 97.7 F Pulse Rate 92
[2023-12-24] MEDS: FLUTICASONE/UMECLIDIN/VILANTER 100-62.5-25 MCG ELLIPTA 1 PUFF INHALATION (08:24)
[2023-12-24] MEDS: APIXABAN 5 MG TABLET PO ×2 (09:07→21:35)
[2023-12-24] MEDS: guaiFENesin 12 HR 600 MG TABCR PO (09:07)
[2023-12-24] MEDS: guaiFENesin/DEXTROMETHORPHAN 10 ML UDC PO (09:08)
[2023-12-24] MEDS: PRAVASTATIN SODIUM 20 MG TABLET PO (09:08)
[2023-12-24] MEDS: TAMSULOSIN HCL 0.4 MG CAPSULE PO ×2 (09:08→21:37)
[2023-12-24] MEDS: PANTOPRAZOLE 40 MG TABLET PO ×2 (09:08→21:36)
--- NOTE | 2023-12-24 11:34 | PM.IMPN ---
Progress Note: A&P Assessment and Plan (1) Septic shock: Code(s): A41.9 - Sepsis, unspecified organism; R65.21 - Severe sepsis with septic shock Status: Acute (2) Pneumonia: Qualifiers: Laterality: left Lung location: upper lobe of lung Pneumonia type: due to unspecified organism Qualified Code(s): J18.9 - Pneumonia, unspecified organism Code(s): J18.9 - Pneumonia, unspecified organism Status: Acute (3) Hypomagnesemia: Code(s): E83.42 - Hypomagnesemia Status: Inactive (4) Atrial fibrillation with rapid ventricular response: Code(s): I48.91 - Unspecified atrial fibrillation Status: Inactive (5) Heart failure with reduced ejection fraction: Code(s): I50.20 - Unspecified systolic (congestive) heart failure Status: Acute (6) Chronic anticoagulation: Code(s): 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 At the outside hospital he denies any sore throat, chest pain, pleuritic pain, hemoptysis, nausea, vomiting.? No sick contacts.? His systolic blood pressures at the outside hospital in the 80s, and despite 2 L IV fluids he was hypotensive, central line was placed and started on vasopressors and transferred to the ICU at [facility] for further management.? His WBC count was 27.1, lactic acid 1.7, creatinine was elevated to 1.62 and magnesium was 1.0.? COVID-19, influenza and RSV were negative.? Patient was started on ceftriaxone, azithromycin and vancomycin.? Upon arrival to [place] ICU, patient's blood pressures were adequate and his Levophed was discontinued. Chest x-ray showed bilateral pneumonia left greater than right and treated as pneumonia with antibiotics as above. Leukocytosis improving but still persistent. Respiratory cultures still growing Pseudomonas aeruginosa. Antibiotics has been switched to cefepime. Sensitivities with sensitivity to levofloxacin and been switched to levofloxacin. Respiratory issues still persist. Will increase Mucinex and add nebulized steroid today. Mild hyponatremia and hypomagnesia replace and monitor magnesium level Atrial fibrillation chronic with AFib with RVR on apixaban initially metoprolol on hold cardiology on board Metoprolol restarted and also added on Cardizem, history of cardioversion converted back to AFib 2 months after being cardioverted. BPH with obstructive symptoms. Bladder scanner not reliably presenting however signs and symptoms suggest urinary retention straight catheterization was performed 800 cc of urine was removed. Will increase Flomax to twice daily. Monitor with bladder scan as needed Heart failure with reduced ejection fraction EF 40-45%. CKD stage 3 DVT prophylaxis apixaban Code status full code Subjective Date/time seen: 12/24/23 11:34 Interval history: No overnight events. Placed on a Conti last night. Is still has cough not much expectoration. Feels short of breath on and off. Review of Systems Review of Systems: All systems reviewed & are unremarkable except as noted in HPI and below Exam Narrative: General: Mildly ill-appearing gentleman sitting up on the chair not in acute distress Respiratory: Coarse breath sound bilaterally rhonchi heard Cardiovascular: Irregularly irregular rate and rhythm. Mildly Tachycardic Gastrointestinal: Abdom
[2023-12-24] MEDS: dilTIAZem HCL 60 MG TABLET PO ×2 (12:03→18:45)
[2023-12-24] MEDS: BUDESONIDE RESPULE NEB 0.5 MG/2 ML AMP INHALATION (20:41)
[2023-12-24] MEDS: levoFLOXacin 750 MG TABLET PO (21:35)
[2023-12-24] MEDS: guaiFENesin 12 HR 600 MG TABCR 1200 MG PO (21:35)
[2023-12-25] VITALS (26 sets, daily range): BP systolic 112–143; BP diastolic 54–78; PULSE 74–95; RESP 16–28; TEMP 35.9–36.6; O2SAT 85–98
[2023-12-25] MEDS: dilTIAZem HCL 60 MG TABLET PO ×2 (00:20→05:40)
[2023-12-25] MEDS: IPRATROPIUM 0.5 MG/ALBUTEROL SULFATE 2.5 MG AMPUL.NEB 3 ML INHALATION ×4 (01:20→20:21)
[2023-12-25] MEDS: CALCIUM CARBONATE (TUMS) 500 MG (200 MG ELEMENTAL) PO (02:01)
[2023-12-25 04:23] LABS: Basophils Percent Auto 0.2 % (0.2-1.2); Eosinophils Absolute Auto 0.5 K/mm3 (0-0.3); Eosinophils Percent Auto 3.5 % (0-4.4); Hematocrit 36.2 % (42.0-52.0); Hemoglobin 11.7 g/dL (14.0-18.0); Immature Granulocyte Absolute 0.14 K/mm3 (0.00-0.031); Immature Granulocyte Percent A 1.1 % (0-0.5); Lymphocytes Absolute Auto 1.07 K/mm3 (0.9-3.2); Lymphocytes Percent Auto 8.1 % (18.3-44.2); Mean Corpuscular HGB Conc 32.3 g/dl (32-36); Mean Corpuscular Hemoglobin 29.2 pg (26-34); Mean Corpuscular Volume 90.3 fl (80-100); Mean Platelet Volume 9.3 fl (7.4-10.4); Monocytes Absolute Auto 1.1 K/mm3 (0.1-0.6); Monocytes Percent Auto 8.4 % (2.6-8.5); Neutrophils Absolute Auto 10.4 K/mm3 (1.3-6.7); Neutrophils Percent Auto 78.7 % (45.5-73.1); Platelet Count Result 264 k/mm3 (150-375); Red Blood Count 4.01 M/mm3 (4.6-6.20); Red Cell Distribution Width 13.6 % (11.5-14.5); White Blood Count 13.2 K/mm3 (4.5-10.0)
[2023-12-25 04:52] LABS: Alanine Aminotransferase 36 U/L (6-50); Albumin Level 3.1 g/dL (3.5-5.1); Alkaline Phosphatase 95 U/L (38-126); Anion Gap 2 mmol/L (4-12); Aspartate Amino Transferase 48 U/L (17-59); Bilirubin,Total 0.9 mg/dL (0.2-1.3); Blood Urea Nitrogen 8 mg/dL (9-20); Calcium 8.7 mg/dL (8.4-10.2); Carbon Dioxide 34 mmol/L (22-30); Chloride 98 mmol/L (98-107); Estimated CRCL calculation 66 ml/min; Estimated Glomerular Filt Rate > 60; Glucose 110 mg/dL (65-110); Magnesium 1.6 mg/dL (1.6-2.3); Potassium 3.6 mmol/L (3.4-5.0); Sodium 134 mmol/L (137-145)
--- NOTE | 2023-12-25 07:43 | PM.PNCARD ---
Progress Note: A&P Assessment and Plan (1) A-fib: Qualifiers: Atrial fibrillation type: permanent Qualified Code(s): I48.21 - Permanent atrial fibrillation Code(s): I48.91 - Unspecified atrial fibrillation Status: Acute Assessment and Plan: On Eliquis for anticoagulation. Rate was controlled on metoprolol at home. HR stable. Change Diltiazem CD 240 mg daily. Monitor HR. No further cardiac workup is needed. Will sign off. Please call with any questions. Have him f/u with me in 1-2 weeks upon discharge. (2) Septic shock: Code(s): A41.9 - Sepsis, unspecified organism; R65.21 - Severe sepsis with septic shock Status: Acute Assessment and Plan: Resolved. Due to pneumonia. On antibiotics. Followed by hospitalist. (3) CAD (coronary artery disease): Qualifiers: Coronary Disease-Associated Artery/Lesion type: [place] artery [place] vs. transplanted heart: [place] heart Associated angina: without angina Qualified Code(s): I25.10 - Atherosclerotic heart disease of [place] coronary artery without angina pectoris Code(s): I25.10 - Atherosclerotic heart disease of [place] coronary artery without angina pectoris Status: Acute Assessment and Plan: Stable. (4) PAD (peripheral artery disease): Code(s): I73.9 - Peripheral vascular disease, unspecified Status: Acute Assessment and Plan: Stable. (5) Chronic systolic heart failure: Code(s): I50.22 - Chronic systolic (congestive) heart failure Status: Acute Assessment and Plan: Mild. Euvolemic. (6) Essential (primary) hypertension: Onset Date: 11/02/16 Code(s): I10 - Essential (primary) hypertension Status: Acute Assessment and Plan: Stable. On Diltiazem. Monitor. Subjective Date/time seen: 12/25/23 07:43 Interval history: He has sob and worse with exertion. No chest pains. Exam Const: General: cooperative, healthy appearing and comfortable Orientation/consciousness: oriented to person, oriented to place and oriented to time Resp: Auscultation: no rales, wheezes and breath sounds absent Cardio: Rate: regular rate and tachycardic Rhythm: abnormal rhythm Heart sounds: no murmurs Peripheral pulses: dorsalis pedis present Neuro: General: oriented to person, oriented to place and oriented to time Extrem: Right lower extremity: no edema Left lower extremity: no edema Objective Data Vital Signs Vital Signs: Vital Signs - 24 hr 12/24/23 07:55 12/24/23 08:22 12/24/23 08:22 Temperature 98.0 F Pulse Rate 79 79 Respiratory Rate 24 H 20 Blood Pressure 96/73 L Pulse Oximetry 97 94 Oxygen Delivery Nasal Cannula Oxygen Flow Rate 2 Fraction of Inspired Oxygen 28 12/24/23 08:36 12/24/23 12:00 12/24/23 13:36 Temperature 98.2 F Pulse Rate 94 80 90 Respiratory Rate 20 20 20 Blood Pressure 123/63 Pulse Oximetry 97 Oxygen Delivery Oxygen Flow Rate Fraction of Inspired Oxygen 12/24/23 13:45 12/24/23 08:00 12/24/23 10:00 Temperature Pulse Rate 92 85 89 Respiratory Rate 20 Blood Pressure Pulse Oximetry Oxygen Delivery Oxygen Flow Rate Fraction of Inspired Oxygen 12/24/23 12:00 12/24/23 12:00 12/24/23 14:00 Temperature Pulse Rate 94 90 Respiratory Rate Blood Pressure Pulse Oximetry 94 Oxygen Delivery Nasal Cannula Oxygen Flow Rate 1 Fraction of Inspired Oxygen 12/24/23 16:00 12/24/23 16:45 12/24/23 16:45 Temperature 98.0 F Pulse Rate 79 81 Respiratory Rate 28 H Blood Pressure 129/57 L Pulse Oximetry 94 92 Oxygen Delivery Room Air Oxygen Flow Rate Fraction of Inspired Oxygen 12/24/23 18:00 12/24/23 20:00 12/24/23 20:43 Temperature 97.3 F L Pulse Rate 88 92 Respiratory Rate 16 Blood Pressure 114/74 Pulse Oximetry 90 90 Oxygen Delivery Room Air Oxygen Flow Rate Fraction of Inspired Oxygen 12/24/23
[2023-12-25] MEDS: BUDESONIDE RESPULE NEB 0.5 MG/2 ML AMP INHALATION ×2 (08:25→20:21)
[2023-12-25] MEDS: FLUTICASONE/UMECLIDIN/VILANTER 100-62.5-25 MCG ELLIPTA 1 PUFF INHALATION (08:25)
[2023-12-25] MEDS: PRAVASTATIN SODIUM 20 MG TABLET PO (09:56)
[2023-12-25] MEDS: MAGNESIUM OXIDE 400 MG TABLET PO (09:56)
[2023-12-25] MEDS: TAMSULOSIN HCL 0.4 MG CAPSULE PO ×2 (09:56→22:57)
[2023-12-25] MEDS: PANTOPRAZOLE 40 MG TABLET PO ×2 (09:56→22:57)
[2023-12-25] MEDS: APIXABAN 5 MG TABLET PO ×2 (09:56→22:57)
[2023-12-25] MEDS: guaiFENesin 12 HR 600 MG TABCR 1200 MG PO ×2 (10:10→22:57)
--- NOTE | 2023-12-25 13:42 | PM.IMPN ---
Progress Note: A&P Assessment and Plan (1) Septic shock: Code(s): A41.9 - Sepsis, unspecified organism; R65.21 - Severe sepsis with septic shock Status: Acute (2) Pneumonia: Qualifiers: Laterality: left Lung location: upper lobe of lung Pneumonia type: due to unspecified organism Qualified Code(s): J18.9 - Pneumonia, unspecified organism Code(s): J18.9 - Pneumonia, unspecified organism Status: Acute (3) Hypomagnesemia: Code(s): E83.42 - Hypomagnesemia Status: Inactive (4) Atrial fibrillation with rapid ventricular response: Code(s): I48.91 - Unspecified atrial fibrillation Status: Inactive (5) Heart failure with reduced ejection fraction: Code(s): I50.20 - Unspecified systolic (congestive) heart failure Status: Acute (6) Chronic anticoagulation: Code(s): 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 Status: Acute (7) Chronic kidney disease, stage 3: Code(s): N18.30 - Chronic kidney disease, stage 3 unspecified Status: Acute Plan Chilo Cross is a 73 year old male with past medical history of atrial fibrillation on chronic anticoagulation/apixaban COPD, CHF with reduced ejection fraction, EF 40-45%, diastolic dysfunction, CAD, essential hypertension, chronic kidney disease, BPH, oral cancer status post resection, gastroesophageal reflux disease presented the ED at the [facility] in [facility] with progressive dyspnea, worsening cough which has been productive of clear to yellow sputum.? At the outside hospital he denies any sore throat, chest pain, pleuritic pain, hemoptysis, nausea, vomiting.? No sick contacts.? His systolic blood pressures at the outside hospital in the 80s, and despite 2 L IV fluids he was hypotensive, central line was placed and started on vasopressors and transferred to the ICU at [facility] for further management.? His WBC count was 27.1, lactic acid 1.7, creatinine was elevated to 1.62 and magnesium was 1.0.? COVID-19, influenza and RSV were negative.? Patient was started on ceftriaxone, azithromycin and vancomycin.? Upon arrival to [place] ICU, patient's blood pressures were adequate and his Levophed was discontinued. Chest x-ray showed bilateral pneumonia left greater than right and treated as pneumonia with antibiotics as above. Leukocytosis improving but still persistent. Respiratory cultures still growing Pseudomonas aeruginosa. Antibiotics has been switched to cefepime. Sensitivities with sensitivity to levofloxacin and been switched to levofloxacin. Respiratory issues still persist. Will increase Mucinex and add nebulized steroid however continues to have intermittent shortness of breath. Will add treatment for COPD is prednisone daily. Chest x-ray with stable findings Mild hyponatremia and hypomagnesia replace and monitor magnesium level Atrial fibrillation chronic with AFib with RVR on apixaban initially metoprolol on hold cardiology on board Metoprolol restarted and also added on Cardizem, history of cardioversion converted back to AFib 2 months after being cardioverted. BPH with obstructive symptoms. Bladder scanner not reliably presenting however signs and symptoms suggest urinary retention straight catheterization was performed 800 cc of urine was removed. Will increase Flomax to twice daily. Monitor with bladder scan as needed Heart failure with reduced ejection fraction EF 40-45%. CKD stage 3 DVT prophylaxis apixaban Code status full code Subjective Date/time seen: 12/25/23 13:42 Interval history: Patient continues to report intermittent cough and expectoration with shortness of breath still has copious phlegm Review of Systems Review of Systems: All systems reviewed & are unremarkable except as noted in HPI and below Exam Narrative: General: Mildly ill-appearing gentleman sitting up on the chair not in acute distress Respiratory: Coarse breath sound bilater
[2023-12-25] MEDS: dilTIAZem HCL CD 240 MG CAP.24HR PO (13:54)
[2023-12-25] MEDS: predniSONE 20 MG TABLET 40 MG PO (13:56)
[2023-12-25] MEDS: levoFLOXacin 750 MG TABLET PO (22:57)
[2023-12-26] VITALS (19 sets, daily range): BP systolic 120–151; BP diastolic 65–89; PULSE 74–96; RESP 18–24; TEMP 36.1–36.6; O2SAT 91–98; BMI 23.5
[2023-12-26] MEDS: IPRATROPIUM 0.5 MG/ALBUTEROL SULFATE 2.5 MG AMPUL.NEB 3 ML INHALATION ×4 (03:06→20:21)
[2023-12-26 04:46] LABS: Basophils Percent Auto 0.2 % (0.2-1.2); Eosinophils Percent Auto 0.1 % (0-4.4); Hematocrit 37.3 % (42.0-52.0); Hemoglobin 12.1 g/dL (14.0-18.0); Immature Granulocyte Absolute 0.18 K/mm3 (0.00-0.031); Immature Granulocyte Percent A 1.4 % (0-0.5); Lymphocytes Percent Auto 5.4 % (18.3-44.2); Mean Corpuscular HGB Conc 32.4 g/dl (32-36); Mean Corpuscular Hemoglobin 29.2 pg (26-34); Mean Corpuscular Volume 90.1 fl (80-100); Mean Platelet Volume 9.4 fl (7.4-10.4); Monocytes Absolute Auto 0.8 K/mm3 (0.1-0.6); Monocytes Percent Auto 5.9 % (2.6-8.5); Neutrophils Absolute Auto 11.3 K/mm3 (1.3-6.7); Platelet Count Result 317 k/mm3 (150-375); Red Blood Count 4.14 M/mm3 (4.6-6.20); Red Cell Distribution Width 13.5 % (11.5-14.5)
[2023-12-26 05:04] LABS: Alanine Aminotransferase 42 U/L (6-50); Albumin Level 3.4 g/dL (3.5-5.1); Alkaline Phosphatase 93 U/L (38-126); Anion Gap 5 mmol/L (4-12); Aspartate Amino Transferase 47 U/L (17-59); Bilirubin,Total 0.7 mg/dL (0.2-1.3); Blood Urea Nitrogen 12 mg/dL (9-20); Carbon Dioxide 31 mmol/L (22-30); Chloride 98 mmol/L (98-107); Estimated CRCL calculation 73 ml/min; Estimated Glomerular Filt Rate > 60; Glucose 116 mg/dL (65-110); Magnesium 1.7 mg/dL (1.6-2.3); Potassium 4.1 mmol/L (3.4-5.0); Sodium 134 mmol/L (137-145)
[2023-12-26] MEDS: FLUTICASONE/UMECLIDIN/VILANTER 100-62.5-25 MCG ELLIPTA 1 PUFF INHALATION (07:47)
[2023-12-26] MEDS: BUDESONIDE RESPULE NEB 0.5 MG/2 ML AMP INHALATION ×2 (07:47→20:21)
[2023-12-26] MEDS: PANTOPRAZOLE 40 MG TABLET PO ×2 (09:39→20:48)
[2023-12-26] MEDS: MAGNESIUM OXIDE 400 MG TABLET PO (09:39)
[2023-12-26] MEDS: PRAVASTATIN SODIUM 20 MG TABLET PO (09:39)
[2023-12-26] MEDS: APIXABAN 5 MG TABLET PO ×2 (09:39→20:48)
[2023-12-26] MEDS: predniSONE 20 MG TABLET 40 MG PO (09:39)
[2023-12-26] MEDS: guaiFENesin 12 HR 600 MG TABCR 1200 MG PO ×2 (09:39→20:48)
[2023-12-26] MEDS: dilTIAZem HCL CD 240 MG CAP.24HR PO (09:39)
[2023-12-26] MEDS: TAMSULOSIN HCL 0.4 MG CAPSULE PO ×2 (09:39→20:48)
--- NOTE | 2023-12-26 12:12 | PM.IMPN ---
Progress Note: A&P Assessment and Plan (1) Septic shock: Code(s): A41.9 - Sepsis, unspecified organism; R65.21 - Severe sepsis with septic shock Status: Acute (2) Pneumonia: Qualifiers: Laterality: left Lung location: upper lobe of lung Pneumonia type: due to unspecified organism Qualified Code(s): J18.9 - Pneumonia, unspecified organism Code(s): J18.9 - Pneumonia, unspecified organism Status: Acute (3) Hypomagnesemia: Code(s): E83.42 - Hypomagnesemia Status: Inactive (4) Atrial fibrillation with rapid ventricular response: Code(s): I48.91 - Unspecified atrial fibrillation Status: Inactive (5) Heart failure with reduced ejection fraction: Code(s): I50.20 - Unspecified systolic (congestive) heart failure Status: Acute (6) Chronic anticoagulation: Code(s): 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 Status: Acute (7) Chronic kidney disease, stage 3: Code(s): N18.30 - Chronic kidney disease, stage 3 unspecified Status: Acute Plan Chilo Cross is a 73 year old male with past medical history of atrial fibrillation on chronic anticoagulation/apixaban COPD, CHF with reduced ejection fraction, EF 40-45%, diastolic dysfunction, CAD, essential hypertension, chronic kidney disease, BPH, oral cancer status post resection, gastroesophageal reflux disease presented the ED at the [facility] in [facility] with progressive dyspnea, worsening cough which has been productive of clear to yellow sputum.? At the outside hospital he denies any sore throat, chest pain, pleuritic pain, hemoptysis, nausea, vomiting.? No sick contacts.? His systolic blood pressures at the outside hospital in the 80s, and despite 2 L IV fluids he was hypotensive, central line was placed and started on vasopressors and transferred to the ICU at [facility] for further management.? His WBC count was 27.1, lactic acid 1.7, creatinine was elevated to 1.62 and magnesium was 1.0.? COVID-19, influenza and RSV were negative.? Patient was started on ceftriaxone, azithromycin and vancomycin.? Upon arrival to [place] ICU, patient's blood pressures were adequate and his Levophed was discontinued. Chest x-ray showed bilateral pneumonia left greater than right and treated as pneumonia with antibiotics as above. Leukocytosis improving but still persistent. Respiratory cultures still growing Pseudomonas aeruginosa. Antibiotics has been switched to cefepime. Sensitivities with sensitivity to levofloxacin and been switched to levofloxacin. Respiratory issues still persist. Increased Mucinex and add nebulized steroid however continues to have intermittent shortness of breath. Will add treatment for COPD is prednisone daily. Chest x-ray with stable findings. Continue prednisone as ordered Mild hyponatremia and hypomagnesia replace and monitor magnesium level Atrial fibrillation chronic with AFib with RVR on apixaban initially metoprolol on hold cardiology on board Metoprolol restarted and also added on Cardizem, history of cardioversion converted back to AFib 2 months after being cardioverted. BPH with obstructive symptoms. Bladder scanner not reliably presenting however signs and symptoms suggest urinary retention straight catheterization was performed 800 cc of urine was removed. Will increase Flomax to twice daily. Monitor with bladder scan as needed. Status post Conti catheter placement due to recurrent urinary retention. Will do void trial today Choking episode will have speech see him Heart failure with reduced ejection fraction EF 40-45%. CKD stage 3 DVT prophylaxis apixaban Code status full code Subjective Date/time seen: 12/26/23 12:12 Interval history: Feels better. Less cough and phlegm production. Breathing is better off oxygen. Heart rate is controlled. Had a choking episode earlier today with swallowing pill. Review of Systems Review of Systems:
--- NOTE | 2023-12-26 12:50 | PC.NURSE ---
This patient, Chilo Cross, was transferred to [facility] on 12/26/23 at 1145. Personal belongings sent with patient. Report given to Diana. Appropriate documentation sent with patient.
--- NOTE | 2023-12-26 13:45 | PCSTNOTE ---
Please refer to the Bedside Swallow Evaluation in the EMR. Please note, silent aspiration cannot be ruled out at bedside.
--- NOTE | 2023-12-26 15:32 | PCSTNOTE ---
MBS will be completed tomorrow morning at the request of Radiology due to scheduling conflicts this afternoon.
[2023-12-26] MEDS: levoFLOXacin 750 MG TABLET PO (20:48)
[2023-12-27] VITALS (12 sets, daily range): BP systolic 120–142; BP diastolic 62–73; PULSE 74–110; RESP 20; TEMP 36.2–36.3; O2SAT 91–97
[2023-12-27] MEDS: IPRATROPIUM 0.5 MG/ALBUTEROL SULFATE 2.5 MG AMPUL.NEB 3 ML INHALATION ×3 (02:28→14:22)
[2023-12-27 06:45] LABS: Basophils Percent Auto 0.3 % (0.2-1.2); Eosinophils Percent Auto 0.1 % (0-4.4); Hematocrit 38.1 % (42.0-52.0); Hemoglobin 12.2 g/dL (14.0-18.0); Immature Granulocyte Absolute 0.19 K/mm3 (0.00-0.031); Immature Granulocyte Percent A 1.2 % (0-0.5); Lymphocytes Absolute Auto 1.09 K/mm3 (0.9-3.2); Mean Corpuscular Hemoglobin 29.5 pg (26-34); Mean Corpuscular Volume 92.3 fl (80-100); Mean Platelet Volume 9.4 fl (7.4-10.4); Monocytes Absolute Auto 0.9 K/mm3 (0.1-0.6); Neutrophils Absolute Auto 13.4 K/mm3 (1.3-6.7); Neutrophils Percent Auto 85.4 % (45.5-73.1); Platelet Count Result 349 k/mm3 (150-375); Red Blood Count 4.13 M/mm3 (4.6-6.20); Red Cell Distribution Width 13.7 % (11.5-14.5); White Blood Count 15.6 K/mm3 (4.5-10.0)
[2023-12-27 06:56] LABS: Alanine Aminotransferase 47 U/L (6-50); Albumin Level 3.4 g/dL (3.5-5.1); Alkaline Phosphatase 86 U/L (38-126); Anion Gap 4 mmol/L (4-12); Aspartate Amino Transferase 58 U/L (17-59); Bilirubin,Total 0.6 mg/dL (0.2-1.3); Blood Urea Nitrogen 18 mg/dL (9-20); Calcium 8.7 mg/dL (8.4-10.2); Carbon Dioxide 35 mmol/L (22-30); Chloride 96 mmol/L (98-107); Estimated CRCL calculation 66 ml/min; Estimated Glomerular Filt Rate > 60; Glucose 111 mg/dL (65-110); Magnesium 1.6 mg/dL (1.6-2.3); Potassium 3.8 mmol/L (3.4-5.0); Sodium 135 mmol/L (137-145)
[2023-12-27] MEDS: BUDESONIDE RESPULE NEB 0.5 MG/2 ML AMP INHALATION (07:54)
[2023-12-27] MEDS: APIXABAN 5 MG TABLET PO (08:56)
[2023-12-27] MEDS: dilTIAZem HCL CD 240 MG CAP.24HR PO (08:56)
[2023-12-27] MEDS: PANTOPRAZOLE 40 MG TABLET PO (08:56)
[2023-12-27] MEDS: guaiFENesin 12 HR 600 MG TABCR 1200 MG PO (08:56)
[2023-12-27] MEDS: MAGNESIUM OXIDE 400 MG TABLET PO (08:57)
[2023-12-27] MEDS: TAMSULOSIN HCL 0.4 MG CAPSULE PO (08:57)
[2023-12-27] MEDS: predniSONE 20 MG TABLET 40 MG PO (08:57)
[2023-12-27] MEDS: PRAVASTATIN SODIUM 20 MG TABLET PO (08:57)
[2023-12-27] MEDS: FLUTICASONE/UMECLIDIN/VILANTER 100-62.5-25 MCG ELLIPTA 1 PUFF INHALATION (09:13)
--- NOTE | 2023-12-27 11:41 | PCSTNOTE ---
Please refer to the Modified Barium Swallow Evaluation in the EMR.
[2023-12-27] MEDS: MAGNESIUM SULF 2 GM/WATER 50ML 2 GM/50 ML BAG IVPB (12:21)
--- NOTE | 2023-12-27 13:48 | PM.DS ---
DS: Admitting Diagnosis Discharge Date 12/27/2023 Admitting Diagnosis Septic shock DS: Discharge Diagnosis Discharge Diagnosis (1) Septic shock: Code(s): A41.9 - Sepsis, unspecified organism; R65.21 - Severe sepsis with septic shock Status: Acute (2) Pneumonia: Qualifiers: Laterality: left Lung location: upper lobe of lung Pneumonia type: due to unspecified organism Qualified Code(s): J18.9 - Pneumonia, unspecified organism Code(s): J18.9 - Pneumonia, unspecified organism Status: Acute (3) Hypomagnesemia: Code(s): E83.42 - Hypomagnesemia Status: Inactive (4) Atrial fibrillation with rapid ventricular response: Code(s): I48.91 - Unspecified atrial fibrillation Status: Inactive (5) Heart failure with reduced ejection fraction: Code(s): I50.20 - Unspecified systolic (congestive) heart failure Status: Acute (6) Chronic anticoagulation: Code(s): 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 Status: Acute (7) Chronic kidney disease, stage 3: Code(s): N18.30 - Chronic kidney disease, stage 3 unspecified Status: Acute DS: Summary Hospital Course Hospital Course: Chilo Cross is a 73 year old male with past medical history of atrial fibrillation on chronic anticoagulation/apixaban COPD, CHF with reduced ejection fraction, EF 40-45%, diastolic dysfunction, CAD, essential hypertension, chronic kidney disease, BPH, oral cancer status post resection, gastroesophageal reflux disease presented the ED at the [facility] in [facility] with progressive dyspnea, worsening cough which has been productive of clear to yellow sputum.? At the outside hospital he denies any sore throat, chest pain, pleuritic pain, hemoptysis, nausea, vomiting.? No sick contacts.? His systolic blood pressures at the outside hospital in the 80s, and despite 2 L IV fluids he was hypotensive, central line was placed and started on vasopressors and transferred to the ICU at [facility] for further management.? His WBC count was 27.1, lactic acid 1.7, creatinine was elevated to 1.62 and magnesium was 1.0.? COVID-19, influenza and RSV were negative.? Patient was started on ceftriaxone, azithromycin and vancomycin.? Upon arrival to [facility] ICU, patient's blood pressures were adequate and his Levophed was discontinued. Chest x-ray showed bilateral pneumonia left greater than right and treated as pneumonia with antibiotics as above.? Leukocytosis improving but still persistent.? Respiratory cultures still growing Pseudomonas aeruginosa.? Antibiotics has been switched to cefepime.? Sensitivities with sensitivity to levofloxacin and been switched to levofloxacin. He will finish levofloxacin as an outpatient basis to complete the course of treatment. Significantly improved with treatment His respiratory issues still persisted most likely related to COPD exacerbation and subsequently improved with chest x-ray with stable findings. Prednisone for 3 more days at discharge. He was off oxygen by the time of discharge. Oxygen evaluation was performed prior to the discharge. Mild hyponatremia and hypomagnesia replace and monitor magnesium level Atrial fibrillation chronic with AFib with RVR on apixaban initially metoprolol on hold cardiology on board Metoprolol restarted but subsequently was switched to Cardizem, history of cardioversion converted back to AFib 2 months after being cardioverted. BPH with obstructive symptoms.? Bladder scanner not reliably presenting however signs and symptoms suggest urinary retention straight catheterization was performed 800 cc of urine was removed.? Will increase Flomax to twice daily.? Monitor with bladder scan as needed.? Status post Conti catheter placement due to recurrent urinary retention.? Void trial however failed and had to be re-cathed tries again. Will have him follow-up with his urologist. Choking episode speech evaluated. SHENG was nely
--- NOTE | 2023-12-27 14:59 | HOMEO2EVAL ---
Evaluation was performed at [facility] Home Oxygen Evaluation RC: Home Oxygen (O2) Evaluation Start: 12/27/23 07:14 Freq: ONCE Status: Active Protocol: RPE Activity Type Activity Date Activity User E-sign Co-sign Detail Recorded Client Recorded Date Recorded By Document 12/27/23 13:45 ARELY [email or web address] 12/27/23 14:59 ARELY Document 12/27/23 13:50 ARELY [email or web address] 12/27/23 14:59 ARELY Document 12/27/23 14:00 ARELY [email or web address] 12/27/23 14:59 ARELY 12/27/23 12/27/23 12/27/23 13:45 13:50 14:00 Home O2 Evaluation [Oxygen] -Test Phase Resting Exercise Resting -Oxygen Delivery Room Air Room Air Room Air [Pulse Oximetry] -Pulse Oximetry (90-100 %) 96 91 96 [Pulse Rate] -Pulse Rate (60-100 beats/min) 82 110 H 90 [Comments] -Home Oxygen Evaluation Comments No home O2 needed at this time. [Charges] -Evaluation Charges O2 Evaluation by Pulmonary
--- NOTE | 2023-12-27 15:00 | PCRCNOTE ---
Home O2 eval done, no home O2 needed at this time.
[2023-12-31 16:34] LABS: Mycoplasma IgM Antibody Titer 84 U/mL
== END 2023-12-27 15:30 | disposition home or self-care (01) | DRG 871 ==
LOC: ANHICU 12-20 16:08 → ANHIMU 12-21 08:12 → ANH3MEDSUR 12-26 12:27
PROVIDERS: Family Medicine; Internal Medicine; Physician Assistant; Admitting Provider Internal Medicine; PCP Family Medicine; Visit Provider Internal Medicine
DX: A41.9 Sepsis, unspecified organism (principal); J18.9 Pneumonia, unspecified organism; R65.21 Severe sepsis with septic shock; I50.20 Unspecified systolic (congestive) heart failure; J44.0 Chronic obstructive pulmonary disease with (acute) lower respiratory infection; I13.0 Hypertensive heart and chronic kidney disease with heart failure and stage 1 through stage 4 chronic kidney disease, or unspecified chronic kidney disease; I50.32 Chronic diastolic (congestive) heart failure; E87.1 Hypo-osmolality and hyponatremia; I48.21 Permanent atrial fibrillation; J44.1 Chronic obstructive pulmonary disease with (acute) exacerbation; B96.5 Pseudomonas (aeruginosa) (mallei) (pseudomallei) as the cause of diseases classified elsewhere; E83.42 Hypomagnesemia; I48.91 Unspecified atrial fibrillation; N18.30 Chronic kidney disease, stage 3 unspecified; I25.10 Atherosclerotic heart disease of native coronary artery without angina pectoris; N40.0 Benign prostatic hyperplasia without lower urinary tract symptoms; E78.5 Hyperlipidemia, unspecified; K21.9 Gastro-esophageal reflux disease without esophagitis; I73.9 Peripheral vascular disease, unspecified; M81.0 Age-related osteoporosis without current pathological fracture; Z79.01 Long term (current) use of anticoagulants; Z87.891 Personal history of nicotine dependence; I25.2 Old myocardial infarction; Z85.819 Personal history of malignant neoplasm of unspecified site of lip, oral cavity, and pharynx; Z98.42 Cataract extraction status, left eye; Z98.41 Cataract extraction status, right eye
CPT/HCPCS: 36415; 71045; 80048; 80053; 81001; 83735; 85025; 85027; 86738; 87070; 87077; 87186; 87205; 87641; 87899; 92610; 92611; 94618; 94640; A9270; J0456; J0692; J0696; J2919; J3370; J3475; J7512

== ENCOUNTER 2024-01-06 01:49 | Emergency (ER) | payer MEDICARE, OTHER, SELFPAY ==
[2024-01-06 01:59] VITALS: BP 137/106; PULSE 88; RESP 20; TEMP 36.1; O2SAT 97
--- NOTE | 2024-01-06 02:00 | ED.GENADULT ---
HPI - General Adult General Chief complaint: Unspecified Stated complaint: urogenital male Time Seen by Provider: 01/06/24 02:00 Source: patient Mode of arrival: ambulatory Limitations: no limitations History of Present Illness HPI narrative: this is a 73-year-old male that presents with some urinary retention was recently discharged from [facility] had a Conti in place that was removed and over the last day has had little urine output and over the last 6-9hours has minimal output, and does follow with Urology no hematuria no vertigo no fever chills no nausea vomiting no flank pain. Onset (ago): day(s) Related Data Home Medications Medication Instructions Recorded Confirmed fluticasone fur. 100 mcg-umeclid 1 inh inhalation DAILY 12/19/23 12/19/23 62.5 mcg-vilant 25 mcg inhalat.powder (Trelegy Ellipta) losartan 25 mg tablet 25 mg PO DAILY 12/19/23 12/19/23 finasteride 5 mg tablet 5 mg PO DAILY 01/06/24 01/06/24 metoprolol succinate 25 mg mg PO 01/06/24 tablet,extended release 24 hr Allergies Allergy/AdvReac Type Severity Reaction Status Date / Time lisinopril Allergy Unknown Cough Verified 01/06/24 01:52 Sulfa (Sulfonamide Allergy Cough Verified 01/06/24 01:52 Antibiotics) Review of Systems Review of Systems: All systems reviewed & are unremarkable except as noted in HPI and below PMFSH Past Medical History Medical History A-fib Candidiasis, intertriginous Chronic anticoagulation Chronic kidney disease, stage 3 Chronic obstructive pulmonary disease Constipation Coronary artery disease Dyslipidemia Conti catheter in place Former smoker Gastroesophageal reflux disease Heart failure with reduced ejection fraction Echocardiogram in April 2023 showed reduced LV function with an EF of 40 to 45% and abnormal diastolic function. Hypertension Myocardial infarction Evidence of infarct on stress test from September 2018 without reversible ischemia, EF of 37%. Oral cancer Completely excised, no additional treatment required. Osteoporosis Persistent atrial fibrillation Rectal polyp Thrush of mouth and esophagus Vitamin D deficiency, unspecified Surgical History Surgical History History of bilateral cataract extraction History of colonoscopy with polypectomy History of tonsillectomy History of vasectomy Family History Family History Mother Patient's mother is Family history of malignant neoplasm Social History Social History Social History: Surrogate medical decision maker: Beulah Cross, spouse. Code status: Full code. Smoking packs per day: 1.5 Smoking cigarettes per day: 30.0 Years smoked: 50 Smoking pack-years: 75.00 Smoking status: Former smoker Tobacco type: cigarettes Second hand tobacco smoke exposure: Yes Smoking end date: 10/09/21 Alcohol intake: former Drinks per week: 0 Alcohol use details: Rare alcohol use in moderation. Substance use: never Substance use type: does not use Do You Feel Safe in your Home?: Yes Lack of Transportation: No Lack of Food: Never True Current Housing: I Have Housing Concerned About Future Housing: No Difficulty Paying Gas/Electric Bills: No Difficulty Paying for Meds: No Currently Unemployed: YES Education: High School Diploma/GED Difficulty w/ Childcare or Family Care: No Living arrangements: with family Additional living arrangements comments: Lives with spouse and son in [place]. Occupation/Education: retired Additional occupation/education comments: Retired from [employer] after 24 years. Worked for [employer] thereafter. Gender identity (if verbalized by the patient): Male Sexual Orientation (if Verbalized by the Patient): Straight or Heterosexual Spiritu
== END 2024-01-06 02:17 | disposition home or self-care (01) ==
LOC: CHSED 02:06
PROVIDERS: Emergency Provider Emergency Medicine; PCP Family Medicine
DX: R33.9 Retention of urine, unspecified (principal); N40.0 Benign prostatic hyperplasia without lower urinary tract symptoms; I13.0 Hypertensive heart and chronic kidney disease with heart failure and stage 1 through stage 4 chronic kidney disease, or unspecified chronic kidney disease; I50.9 Heart failure, unspecified; N18.30 Chronic kidney disease, stage 3 unspecified; I48.19 Other persistent atrial fibrillation; J44.9 Chronic obstructive pulmonary disease, unspecified; I25.10 Atherosclerotic heart disease of native coronary artery without angina pectoris; E78.5 Hyperlipidemia, unspecified; K21.9 Gastro-esophageal reflux disease without esophagitis; I25.2 Old myocardial infarction; M81.0 Age-related osteoporosis without current pathological fracture; E55.9 Vitamin D deficiency, unspecified; Z79.51 Long term (current) use of inhaled steroids; Z87.891 Personal history of nicotine dependence; Z79.01 Long term (current) use of anticoagulants
CPT/HCPCS: 51702; 99283

== ENCOUNTER 2024-01-12 11:50 | Outpatient (CLI) | payer MEDICARE, OTHER, SELFPAY ==
[2024-01-12] VITALS (8 sets, daily range): PULSE 92–102; O2SAT 93–97
--- NOTE | 2024-01-12 15:01 | SIXMINWLK ---
Six Minute Walk Test PFT: Six Minute Walk Start: 01/12/24 14:43 Freq: Status: Active Protocol: RPE Activity Type Activity Date Activity User E-sign Co-sign Detail Recorded Client Recorded Date Recorded By Document 01/12/24 12:10 RES [id number] 01/12/24 14:49 RES Document 01/12/24 12:11 RES [id number] 01/12/24 14:49 RES Document 01/12/24 12:12 RES [id number] 01/12/24 14:57 RES Document 01/12/24 12:13 RES [id number] 01/12/24 14:57 RES Document 01/12/24 12:14 RES [id number] 01/12/24 14:57 RES Document 01/12/24 12:15 RES [id number] 01/12/24 14:57 RES Document 01/12/24 12:16 RES [id number] 01/12/24 14:57 RES Document 01/12/24 12:17 RES [id number] 01/12/24 14:57 RES 01/12/24 01/12/24 01/12/24 12:10 12:11 12:12 Six Minute Walk Gender M M M Age [age] Race White White White Test Phase Resting Exercise Exercise Oxygen Delivery Room Air Fraction of Inspired Oxygen (%) 21 21 21 Pulse Oximetry (90-100 %) 97 93 95 Pulse Rate (60-100 beats/min) 92 102 H 96 Activity Tolerance Good Good Good Rating of Perceived Dyspnea (PD) +2 Mild, Some +2 Mild, Some +2 Mild, Some Difficulty, Difficulty, Difficulty, Noticeable to Noticeable to Noticeable to the Observer the Observer the Observer Rate of Perceived Exertion (1) Very Light Activity Number of Complete Laps ( 1 Lap = 100 Feet, Enter Total Feet) Stopped/Paused During Testing - Enter Comment if Yes Six Minute Walk Comments 01/12/24 01/12/24 01/12/24 12:13 12:14 12:15 Six Minute Walk Gender M M M Age [age] Race White White White Test Phase Exercise Exercise Exercise Oxygen Delivery Fraction of Inspired Oxygen (%) 21 21 21 Pulse Oximetry (90-100 %) 96 97 96 Pulse Rate (60-100 beats/min) 96 98 97 Activity Tolerance Good Good Good Rating of Perceived Dyspnea (PD) +2 Mild, Some +3 Moderate +3 Moderate Difficulty, Difficulty, But Difficulty, But Noticeable to Can Continue Can Continue the Observer Rate of Perceived Exertion Number of Complete Laps ( 1 Lap = 100 Feet, Enter Total Feet) Stopped/Paused During Testing - Enter patient did Comment if Yes have to pause to take a break during his walk Six Minute Walk Comments total 600 feet 01/12/24 01/12/24 12:16 12:17 Six Minute Walk Gender M M Age [age] Race White White Test Phase Exercise Resting Oxygen Delivery Fraction of Inspired Oxygen (%) 21 21 Pulse Oximetry (90-100 %) 95 93 Pulse Rate (60-100 beats/min) 101 H 102 H Activity Tolerance Good Good Rating of Perceived Dyspnea (PD) +3 Moderate +3 Moderate Difficulty, But Difficulty, But Can Continue Can Continue Rate of Perceived Exertion (4-6) Moderate Activity Number of Complete Laps ( 1 Lap = 100 6 Feet, Enter Total Feet) Stopped/Paused During Testing - Enter Comment if Yes Six Minute Walk Comments
--- NOTE | 2024-01-17 14:10 | WPDPFTINT ---
PFT Procedure Performed PFT Procedure Performed Spirometry with Pre/Post Bronchodilator Plethysmography (Lung Vol) Diffusing Cap (DLCO) Flow Vol Loop PFT Interpretation DOS:01/12/2024 REQUESTING: Donna Nj PA-C REASON FOR TESTING: COPD PULMONARY FUNCTION TESTS Results are reliable and reproducible. Spirometry: FEV1 is 1.50, 44%, severely decreased. FVC is 4.68 L, 107%. FEV1/FVC is 32%, decreased consistent with airflow obstruction. After bronchodilator, FEV1 decreases 8%, and FVC decreases 5%. Lung volumes: Total lung capacity is 7.51 L, 108%, normal. Residual volume is 2.83 L, 105%, normal. RV/TLC i 38%, normal. Elevated airway resistance. Diffusion: DLCO is 11.4, 57% predicted. DLCO/VA is 2.11, 60%. Flow volume loop: Severe scooping of the expiratory limb. IMPRESSION: This study shows a severe obstructive ventilatory impairment without response to bronchodilator, normal lung volumes, and a moderate diffusion impairment. This pattern is consistent with emphysema. Lack of response to bronchodilator should not preclude use if clinically indicated. Compared to a prior study 02/20/2020, there has been progression of the obstructive process and progression of the diffusion impairment. The previous FEV1 was 1.66 L, 54% predicted. The absolute volumes are similar. The previous FVC was 3.69 L, 81% predicted. The current FVC is 4.68 L, better. There was no improvement after bronchodilator administration. Lung volumes were not obtained on the last test due to technical problems in the PFT lab. The prior DLCO was 14.6, 73% predicted, now 11.4 which is 57%, significantly worse. The DLCO/ VA was 2.50, 69%, and now is 2.11, 60%, about the same. Stephani Carmona MD
--- NOTE | 2024-01-17 14:23 | WPDSIXMINUTE ---
Six Minute Walk Procedure Procedure Performed Pulmonary Stress Test (6 min walk) Six Minute Walk Six Minute Walk: DATE OF SERVICE: 01/12/2024 REQUESTING: Donna Nj PA-C REASON FOR TESTING: COPD SIX MINUTE WALK This test was conducted per ATS guidelines. The initial saturation was 97%, and initial heart rate was 92 bpm. The patient walked, stopped to rest at the 3 minute walk, then walked again until the end of the 6 minute protocol. He completed 600 feet/ 182.8 meters. The saturation at the end of testing was 93% and the heart rate was 102 bpm IMPRESSION: This study shows that he did not require supplemental oxygen with exertion. Distance walked is less than expected for his age. Stephani Carmona MD
== END 2024-01-12 11:51 | disposition home or self-care (01) ==
LOC: CHSCARD 11:53
PROVIDERS: PCP Family Medicine; Visit Provider Physician Assistant
DX: J44.9 Chronic obstructive pulmonary disease, unspecified (principal); R94.2 Abnormal results of pulmonary function studies
CPT/HCPCS: 94060; 94618; 94726; 94729

== ENCOUNTER 2024-01-22 10:09 | Inpatient (IN) | payer MEDICARE, OTHER, SELFPAY ==
[2024-01-22] VITALS (10 sets, daily range): BP systolic 103–176; BP diastolic 63–82; PULSE 66–99; RESP 18–24; TEMP 36.2–36.8; O2SAT 96–99; BMI 22.4
--- NOTE | ~2024-01-22 | US_ITS ---
EXAMINATION: US renal BI DATE: 01/23/2024 10:10 INDICATION: Hydronephrosis and bladder clots TECHNIQUE: Multiple ultrasound grayscale images of the kidneys were obtained. COMPARISON: 06/28/2019 FINDINGS: The right kidney measures 10.0 x 3.7 x 4.2 cm. The left kidney measures 10.1 x 4.2 x 3.5 cm. The kidn eys demonstrate normal echogenicity. There are bilateral anechoic renal cysts measuring 1.9 cm the up per pole of the right kidney and 1 cm at the upper pole of the left kidney. In addition to the cyst a t the upper pole of the right kidney there is hypoechoic defect in the hypoechoic cortex at the apex of the right kidney which could represent focal cortical scarring however this is without correlate o n the CT from 2 months prior which raises concern for neoplasm. There is no hydronephrosis in either kidney. No stones identified. There is mild diffuse smooth bladder wall thickening. Conti catheter i n the bladder. Prostatomegaly measuring at least 5.3 x 4.9 cm. There is a small amount of hypoechoic material posterior to the Conti catheter bulb consistent with small amount of clot. IMPRESSION: 1. Small bilateral renal cysts. No hydronephrosis. 2. Hypoechoic defect in the hypoechoic cortex at the apex of the right kidney which is without correl ate on the recent prior CT which raises concern for neoplasm. Would recommend further evaluation with pre and postcontrast MRI or CT. 3. Conti catheter and small amount of clot within the bladder. 4. Diffuse mild bladder wall thickening likely due to incomplete distention and possibly sequela of c hronic outlet obstruction from the enlarged prostate. Reviewed, dictated and finalized at location A. IMPRESSION: 1. Small bilateral renal cysts. No hydronephrosis. 2. Hypoechoic defect in the hypoechoic cortex at the apex of the right kidney w hich is without correlate on the recent prior CT which raises concern for neopl asm. Would recommend further evaluation with pre and postcontrast MRI or CT. 3. Conti catheter and small amount of clot within the bladder. 4. Diffuse mild bladder wall thickening likely due to incomplete distention and possibly sequela of chronic outlet obstruction from the enlarged prostate.
--- NOTE | ~2024-01-22 | CT_ITS ---
EXAMINATION: CT abdomen pelvis wo con DATE: 01/23/2024 14:11 INDICATION: Right renal mass TECHNIQUE: Computed tomography (CT) of the abdomen and pelvis was performed without intravenous contr ast. Automated exposure control and iterative reconstruction technique were employed. The dose-length product was 360.91 mGy-cm. COMPARISON: Ultrasound dated 01/23/[address] dated 11/14/2023 FINDINGS: Severe emphysema. Unchanged 6 mm left lower lobe nodule. Septal line thickening and some groundglass opacity dependent basilar left lower lobe which could represent atelectasis, mild pulmonary edema or pneumonia. Heart size is normal. Minimal pericardial effusion. No pleural effusion. Liver, gallbladde r, spleen, pancreas, bilateral adrenal glands and left kidney are normal. 2 cm low-attenuation cyst a t the upper pole of the left kidney. No other correlate for the hyperechoic region the interpreting t he hypoechoic renal cortex at the upper pole of the right kidney seen on prior ultrasound. No urolith iasis or hydronephrosis. There are a few scattered colonic diverticula without adjacent inflammatory stranding to suggest diverticulitis. Small bowel and appendix are normal. Small amount of high attenu ation clot surrounding the Cnoti catheter bulb within the partially decompressed bladder. Prostatomeg felicia. No free intraperitoneal gas or fluid. No pathologically enlarged abdominal or pelvic lymphadenop athy. Severe lumbar spondylosis. IMPRESSION: 1. No correlate for the hyperechoic region along side the 2 cm cyst at the upper pole the right kidne y. Sensitivity is however relatively low on noncontrast CT and if possible would recommend postcontra st MRI or CT for more sensitive evaluation. 2. Small region of lung disease in the dependent basilar left lower lobe which could represent atelec tasis, mild pulmonary edema or pneumonia. 3. Small amount of blood surrounding the Conti catheter bulb within the bladder. 4. Prostatomegaly. Reviewed, dictated and finalized at location A. IMPRESSION: 1. No correlate for the hyperechoic region along side the 2 cm cyst at the uppe r pole the right kidney. Sensitivity is however relatively low on noncontrast C T and if possible would recommend postcontrast MRI or CT for more sensitive vladimir luation. 2. Small region of lung disease in the dependent basilar left lower lobe which could represent atelectasis, mild pulmonary edema or pneumonia. 3. Small amount of blood surrounding the Conti catheter bulb within the bladder . 4. Prostatomegaly.
--- NOTE | 2024-01-22 11:02 | ED.MALEGU ---
HPI - Male Genitourinary General Chief complaint: Urogenital-Male Stated complaint: hematuria Time Seen by Provider: 01/22/24 10:15 History of Present Illness HPI Narrative: Patient is a 73-year-old male who presents ER with hematuria. He has been having issues with urinary retention since being hospitalized several weeks ago for pneumonia. He had his Conti removed 4 days ago and has been doing self-catheterizations. He began having blood in last 12 hours and can no longer drain his bladder. He has lower abdominal pain. No fevers or chills or sweats. He is on apixaban. Related Data Home Medications Medication Instructions Recorded Confirmed fluticasone fur. 100 mcg-umeclid 1 inh inhalation DAILY 12/19/23 01/22/24 62.5 mcg-vilant 25 mcg inhalat.powder (Trelegy Ellipta) finasteride 5 mg tablet 5 mg PO DAILY 01/06/24 01/22/24 Tessalon Perles 1 cap PO BID 01/22/24 01/22/24 formoterol fumarate 20 mcg/2 mL 2 ml inhalation DAILY 01/22/24 01/22/24 solution for nebulization nystatin 100,000 unit/gram topical 1 applic topical BID PRN Rash 01/22/24 01/22/24 cream pravastatin 20 mg tablet 20 mg PO HS 01/22/24 01/22/24 Allergies Allergy/AdvReac Type Severity Reaction Status Date / Time lisinopril Allergy Unknown Cough Verified 01/06/24 01:52 Sulfa (Sulfonamide Allergy Cough Verified 01/06/24 01:52 Antibiotics) Review of Systems Review of Systems: All systems reviewed & are unremarkable except as noted in HPI and below Constitutional: Constitutional: Reports no additional constitutional complaints Gastrointestinal: Gastrointestinal: Reports abdominal pain, Denies diarrhea, Denies nausea and Denies vomiting Genitourinary: Genitourinary: Reports hematuria, Reports oliguria, Denies dysuria and Denies urinary frequency [facility] Past Medical History Medical History (Updated 01/22/24 @ 18:43 by Juma Reyes MD) Chronic anticoagulation Chronic kidney disease, stage 3 Chronic obstructive pulmonary disease Coronary artery disease Dyslipidemia Former smoker Gastroesophageal reflux disease Heart failure with reduced ejection fraction Echocardiogram in April 2023 showed reduced LV function with an EF of 40 to 45% and abnormal diastolic function. Hypertension Myocardial infarction Evidence of infarct on stress test from September 2018 without reversible ischemia, EF of 37%. Oral cancer Completely excised, no additional treatment required. Osteoporosis Persistent atrial fibrillation Rectal polyp Vitamin D deficiency, unspecified Surgical History Surgical History History of bilateral cataract extraction History of colonoscopy with polypectomy History of tonsillectomy History of vasectomy Family History Family History Mother Patient's mother is Family history of malignant neoplasm Social History Social History (Updated 01/22/24 @ 16:47 by Myra Galvan PA-C) Social History: Surrogate medical decision maker: Beulah Cross, spouse. Code status: Full code. Smoking packs per day: 1.5 Smoking cigarettes per day: 30.0 Years smoked: 50 Smoking pack-years: 75.00 Smoking status: Former smoker Tobacco type: cigarettes Second hand tobacco smoke exposure: Yes Smoking end date: 10/09/21 Alcohol intake: former Drinks per week: 0 Alcohol use details: Rare alcohol use in moderation. Substance use: never Substance use type: does not use Do You Feel Safe in your Home?: Yes Lack of Transportation: No Lack of Food: Never True Current Housing: I Have Housing Concerned About Future Housing: No Difficulty Paying Gas/Electric Bills: No Difficulty Paying for Meds: No Currently Unemployed: YES Education: High School Diploma/GED Difficulty w/ Childcare or Family Care: No Living arrangements: with family Additional living arrangements co
[2024-01-22] MEDS: LIDOCAINE HCL 2% GEL UROJET 10 ML PKG (11:12)
[2024-01-22 11:33] LABS: Basophils Absolute Auto 0.1 K/mm3 (0.0-0.1); Basophils Percent Auto 0.6 % (0.2-1.2); Eosinophils Absolute Auto 0.2 K/mm3 (0-0.3); Eosinophils Percent Auto 1.6 % (0-4.4); Hematocrit 34.2 % (42.0-52.0); Hemoglobin 11.3 g/dL (14.0-18.0); Immature Granulocyte Absolute 0.07 K/mm3 (0.00-0.031); Immature Granulocyte Percent A 0.8 % (0-0.5); Lymphocytes Absolute Auto 0.92 K/mm3 (0.9-3.2); Lymphocytes Percent Auto 9.9 % (18.3-44.2); Mean Corpuscular Hemoglobin 29.4 pg (26-34); Mean Corpuscular Volume 89.1 fl (80-100); Mean Platelet Volume 9.1 fl (7.4-10.4); Monocytes Absolute Auto 0.4 K/mm3 (0.1-0.6); Monocytes Percent Auto 4.5 % (2.6-8.5); Neutrophils Absolute Auto 7.7 K/mm3 (1.3-6.7); Neutrophils Percent Auto 82.6 % (45.5-73.1); Platelet Count Result 244 k/mm3 (150-375); Red Blood Count 3.84 M/mm3 (4.6-6.20); Red Cell Distribution Width 13.4 % (11.5-14.5); White Blood Count 9.3 K/mm3 (4.5-10.0)
[2024-01-22 11:38] LABS: INR 1.4; Prothrombin Time 17.5 Seconds (11.1-14.7)
[2024-01-22 11:39] LABS: Partial Thromboplastin Time 34.7 Seconds (22.3-36.8)
[2024-01-22 11:41] LABS: Alanine Aminotransferase 13 U/L (6-50); Albumin Level 3.5 g/dL (3.5-5.1); Alkaline Phosphatase 94 U/L (38-126); Anion Gap 8 mmol/L (4-12); Aspartate Amino Transferase 19 U/L (17-59); Bilirubin,Total 0.4 mg/dL (0.2-1.3); Blood Urea Nitrogen 14 mg/dL (9-20); Calcium 9.3 mg/dL (8.4-10.2); Carbon Dioxide 24 mmol/L (22-30); Chloride 104 mmol/L (98-107); Estimated CRCL calculation 58 ml/min; Estimated Glomerular Filt Rate > 60; Glucose 109 mg/dL (65-110); Potassium 3.9 mmol/L (3.4-5.0); Sodium 136 mmol/L (137-145)
[2024-01-22 11:45] LABS: Appearance Urine Turbid (Clear); Protein Urine 3+ mg/dL (Negative); Specific Grav Ur 1.025 (1.001-1.035)
[2024-01-22 11:46] LABS: Add Urine Microscopic? YES; Bilirubin Urine 2+ (Negative); Blood Urine 2+ (Negative); Glucose Urine UA Negative (Negative); Ketones Urine Trace mg/dL (Negative); Leukocyte Esterase Ur 3+ LEU/UL (Negative); Nitrate Urine Positive (Negative); RBC Urine >100 /hpf (0-2); WBC Urine >100 /hpf (0-3)
[2024-01-22 11:47] LABS: Color Urine Red (Yellow); Need Manual Microscopic Yes
--- NOTE | 2024-01-22 12:56 | PC.NURSE ---
MABLE to d/c CBI per Dr. Reyes
--- NOTE | 2024-01-22 15:40 | ADMGEN ---
This patient, Chilo Cross, was admitted to Medical Room 342-01. Patient/family oriented to hospital policies and general routines including ID bracelet, bed and alarms, visiting hours, pain management, procedures, bathroom and other care routines, personal items, smoking policy, room service/diet, and visiting hours. Information on how to activate the Rapid Response Team has been discussed. Patient/Family are encouraged to report perceived risks to care and to ask questions if they do not understand what they are told or what they should do.
--- NOTE | 2024-01-22 16:46 | PM.IMHP ---
H&P: HPI History of Present Illness Date/Time: 01/22/24 18:30 Chief Complaint: Difficulties urinating and blood in urine. Narrative: This is a very pleasant 73-year-old male with atrial fibrillation on chronic anticoagulation, chronic obstructive pulmonary disease, heart failure with reduced ejection fraction with an EF of 40 to 45%, diastolic dysfunction, coronary artery disease, hypertension, chronic kidney disease, benign prostatic hyperplasia, oral cancer status post resection, and gastroesophageal reflux disease for evaluation of difficulties urinating and blood in urine on straight catheterization. The patient provides the following history. He is known to myself and the hospitalist service from an admission last month with septic shock secondary to pneumonia. He recovered well from that but does report having issues with urinary retention during the stay. He was discharged home with a Conti catheter and unfortunately he continues to have ongoing issues with retention. More recently he was taught to self-catheterize which he has been doing. Tuesday night he noticed some blood in the urine towards the end. Tuesday there was blood in his urine all day but he was able to urinate without issue. Later that night he had the urge to urinate, was unable to do so, and when he did his straight catheterization he reports dark red blood. He has not been able to urinate since that time any came into the ER for evaluation. He does endorse some dysuria with urinating but otherwise feels okay. No fever, chills, sweats, nausea, vomiting, or diarrhea. In the ED: He was afebrile on arrival with stable vital signs. Labs were significant for a WBC count of 9.3, hemoglobin 11.3, sodium 136. Urine was red and turbid with 2+ blood, 3+ leukocyte esterase, greater than 100 RBC and WBC, and positive nitrates. He was started on ceftriaxone and CBI and he is being admitted in this setting for further treatment and urology consultation. Review of Systems Review of Systems: Findings and treatment plan were discussed with the patient. Questions were solicited and answered to satisfaction. The patient's medical management will be taken over by the hospitalist team in a.m. [facility] Past Medical History Medical History Chronic anticoagulation Chronic kidney disease, stage 3 Chronic obstructive pulmonary disease Coronary artery disease Dyslipidemia Former smoker Gastroesophageal reflux disease Heart failure with reduced ejection fraction Echocardiogram in April 2023 showed reduced LV function with an EF of 40 to 45% and abnormal diastolic function. Hypertension Myocardial infarction Evidence of infarct on stress test from September 2018 without reversible ischemia, EF of 37%. Oral cancer Completely excised, no additional treatment required. Osteoporosis Persistent atrial fibrillation Rectal polyp Vitamin D deficiency, unspecified Surgical History Surgical History History of bilateral cataract extraction History of colonoscopy with polypectomy History of tonsillectomy History of vasectomy Family History Family History Mother Patient's mother is Family history of malignant neoplasm Social History Social History Social History: Surrogate medical decision maker: Beulah Cross, spouse. Code status: Full code. Smoking packs per day: 1.5 Smoking cigarettes per day: 30.0 Years smoked: 50 Smoking pack-years: 75.00 Smoking status: Former smoker Tobacco type: cigarettes Second hand tobacco smoke exposure: Yes Smoking end date: 10/09/21 Alcohol intake: former Drinks per week: 0 Alcohol use details: Rare alcohol use in moderation. Substance use: never Substance use type: does not use Do You Feel Safe
[2024-01-22] MEDS: TAMSULOSIN HCL 0.4 MG CAPSULE PO (17:36)
[2024-01-22 19:37] LABS: Hematocrit 34.1 % (42.0-52.0); Hemoglobin 11.1 g/dL (14.0-18.0)
--- NOTE | 2024-01-22 19:50 | WPDURCON ---
Assessment and Plan Assessment and plan (1) Hematuria: Code(s): R31.9 - Hematuria, unspecified Status: Acute (2) Acute UTI: Code(s): N39.0 - Urinary tract infection, site not specified Status: Acute (3) BPH (benign prostatic hyperplasia): Qualifiers: Lower urinary tract symptom presence: unspecified whether lower urinary tract symptoms present Qualified Code(s): N40.0 - Benign prostatic hyperplasia without lower urinary tract symptoms Code(s): N40.0 - Benign prostatic hyperplasia without lower urinary tract symptoms Status: Acute Plan 73-year-old man with history of BPH and urinary retention. He currently has UTI and associated hematuria. Patient started on CBI in emergency department. --bedside irrigation with removal clot. CBI should continue. --plan renal/bladder ultrasound in the morning to assess for residual clot and hydronephrosis --continue Flomax/finasteride. Patient may benefit from additional BPH procedures as outpatient. Urology Consult Note HPI Date Seen: 01/22/24 Requesting Physician: Subhash Blanton MD Primary Care Provider: Liliana May MD Consult Narrative Narrative: Chilo Cross is a 73 year old male who presented to the emergency room with gross hematuria. The patient had recent urinary retention and was taught to catheterize himself. He noticed gross blood starting yesterday. [facility] Past Medical History Medical History (Updated 01/22/24 @ 18:43 by Juma Reyes MD) Chronic anticoagulation Chronic kidney disease, stage 3 Chronic obstructive pulmonary disease Coronary artery disease Dyslipidemia Former smoker Gastroesophageal reflux disease Heart failure with reduced ejection fraction Echocardiogram in April 2023 showed reduced LV function with an EF of 40 to 45% and abnormal diastolic function. Hypertension Myocardial infarction Evidence of infarct on stress test from September 2018 without reversible ischemia, EF of 37%. Oral cancer Completely excised, no additional treatment required. Osteoporosis Persistent atrial fibrillation Rectal polyp Vitamin D deficiency, unspecified Surgical History Surgical History History of bilateral cataract extraction History of colonoscopy with polypectomy History of tonsillectomy History of vasectomy Family History Family History Mother Patient's mother is Family history of malignant neoplasm Social History Social History (Updated 01/22/24 @ 16:47 by Myra Galvan PA-C) Social History: Surrogate medical decision maker: Beulah Cross, spouse. Code status: Full code. Smoking packs per day: 1.5 Smoking cigarettes per day: 30.0 Years smoked: 50 Smoking pack-years: 75.00 Smoking status: Former smoker Tobacco type: cigarettes Second hand tobacco smoke exposure: Yes Smoking end date: 10/09/21 Alcohol intake: former Drinks per week: 0 Alcohol use details: Rare alcohol use in moderation. Substance use: never Substance use type: does not use Do You Feel Safe in your Home?: Yes Lack of Transportation: No Lack of Food: Never True Current Housing: I Have Housing Concerned About Future Housing: No Difficulty Paying Gas/Electric Bills: No Difficulty Paying for Meds: No Currently Unemployed: YES Education: High School Diploma/GED Difficulty w/ Childcare or Family Care: No Living arrangements: with family Additional living arrangements comments: Lives with spouse and son in [place]. Occupation/Education: retired Additional occupation/education comments: Retired from the [employer] after 24 years. Worked for [employer] thereafter. Spiritual care concerns: No Agree to blood products: Yes Meds Home Medications and Allergies Home Medications Medication Instructions Recorded Confirmed Type apixaba
[2024-01-22] MEDS: BENZONATATE 100 MG CAPSULE 200 MG PO (20:50)
[2024-01-22] MEDS: PRAVASTATIN SODIUM 20 MG TABLET PO (20:50)
[2024-01-23 05:53] LABS: Hematocrit 35.5 % (42.0-52.0); Hemoglobin 11.3 g/dL (14.0-18.0); Mean Corpuscular HGB Conc 31.8 g/dl (32-36); Mean Corpuscular Hemoglobin 29.1 pg (26-34); Mean Corpuscular Volume 91.5 fl (80-100); Mean Platelet Volume 9.6 fl (7.4-10.4); Platelet Count Result 255 k/mm3 (150-375); Red Blood Count 3.88 M/mm3 (4.6-6.20); Red Cell Distribution Width 13.6 % (11.5-14.5); White Blood Count 13.9 K/mm3 (4.5-10.0)
[2024-01-23 06:00] VITALS: BP 124/67; PULSE 75; RESP 18; TEMP 36.7; O2SAT 96
[2024-01-23 06:11] LABS: Anion Gap 4 mmol/L (4-12); Blood Urea Nitrogen 11 mg/dL (9-20); Carbon Dioxide 29 mmol/L (22-30); Chloride 104 mmol/L (98-107); Estimated CRCL calculation 58 ml/min; Estimated Glomerular Filt Rate > 60; Glucose 93 mg/dL (65-110); Magnesium 1.4 mg/dL (1.6-2.3); Potassium 4.1 mmol/L (3.4-5.0); Sodium 137 mmol/L (137-145)
[2024-01-23] MEDS: FLUTICASONE/UMECLIDIN/VILANTER 100-62.5-25 MCG ELLIPTA 1 PUFF INHALATION (07:41)
[2024-01-23 07:44] VITALS: O2SAT 96
--- NOTE | 2024-01-23 09:44 | WPDUROPN2 ---
Progress Note: A&P Assessment and Plan (1) Hematuria: Code(s): R31.9 - Hematuria, unspecified Status: Acute Assessment and Plan: Continue 3 way catheter on CBI. Titrate to keep urine clear. Had bedside irrigation with clot removal on 01/22/2024 Await renal ultrasound today to assess for any residual clots or hydronephrosis Continue NPO diet while awaiting renal ultrasound (2) Acute UTI: Code(s): N39.0 - Urinary tract infection, site not specified Status: Acute Assessment and Plan: Continue empiric antibiotics while awaiting urine culture (3) BPH (benign prostatic hyperplasia): Qualifiers: Lower urinary tract symptom presence: unspecified whether lower urinary tract symptoms present Qualified Code(s): N40.0 - Benign prostatic hyperplasia without lower urinary tract symptoms Code(s): N40.0 - Benign prostatic hyperplasia without lower urinary tract symptoms Status: Acute Assessment and Plan: Continue tamsulosin and finasteride. May need to consider additional BPH procedures as an outpatient. He has follow-up scheduled in 1 month for cystoscopy (4) Urinary retention: Code(s): R33.9 - Retention of urine, unspecified Status: Acute Assessment and Plan: Initial onset 12/2023 during hospital admission for pneumonia Failed outpatient void trial x2 and had been doing intermittent self catheterization at home for about 3 days prior to presentation He is awaiting outpatient urodynamics Subjective Subjective Date/Time Seen: 01/23/24 09:44 Interval history: When is feeling well today. He offers no complaints. Urine draining clear light pink with CBI off (bag had run out). CBI restarted on slow drip and urine promptly became completely clear. He states that with movement or coughing the urine does appear more bloody. He denies flank pain or suprapubic pain. Denies nausea, vomiting, fever, chills. He is NPO while awaiting renal ultrasound this morning. Review of Systems Review of Systems: All systems reviewed & are unremarkable except as noted in HPI and below Exam Narrative: General: Awake, alert, comfortable, no acute distress HEENT: Normocephalic, atraumatic, sclerae anicteric Respiratory: Normal respiratory effort, no accessory muscle use Abdomen: Nondistended, soft, nontender : 3 way catheter draining clear urine on slow CBI Skin: Normal coloration, warm and dry Neurologic: No focal neuro deficits noted Psychiatric: Appropriate mood and affect, judgment and insight intact Objective Data Vital Signs Vital Signs: Vital Signs - 24 hr 01/22/24 10:21 01/22/24 11:46 01/22/24 12:16 Temperature 98.0 F Pulse Rate 99 67 80 Respiratory Rate 18 19 24 H Blood Pressure 176/72 H 119/64 142/80 H Pulse Oximetry 99 96 97 Oxygen Delivery Room Air Fraction of Inspired Oxygen 01/22/24 12:32 01/22/24 12:47 01/22/24 14:42 Temperature Pulse Rate 71 72 70 Respiratory Rate 21 H 23 H 18 Blood Pressure 103/69 131/70 Pulse Oximetry 97 99 99 Oxygen Delivery Fraction of Inspired Oxygen 01/22/24 13:02 01/22/24 14:45 01/22/24 16:00 Temperature 98.2 F Pulse Rate 78 66 73 Respiratory Rate 23 H 20 20 Blood Pressure 127/65 130/82 108/63 Pulse Oximetry 96 99 97 Oxygen Delivery Fraction of Inspired Oxygen 01/22/24 20:00 01/22/24 22:00 01/23/24 07:44 Temperature 97.1 F L Pulse Rate 81 Respiratory Rate 18 Blood Pressure 108/68 Pulse Oximetry 97 96 Oxygen Delivery Room Air Room Air Fraction of Inspired Oxygen 21 01/23/24 06:00 Temperature 98.1 F Pulse Rate 75 Respiratory Rate 18 Blood Pressure 124/67 Pulse Oximetry 96 Oxygen Delivery Fraction of Inspired Oxygen Intake/Output Intake/Output: Intake & Output 01/20/24 01/21/24 01/22/24 01/23/24 23:59 23:59 23:59 23:59 Intake Total 68523 Output Total 35307 2610 Balance -1460 -2610 Meds/Results
[2024-01-23] MEDS: MAGNESIUM SULFATE 3GM/D5W100ML 3 GM/100 ML BAG IVPB (10:17)
[2024-01-23] MEDS: BENZONATATE 100 MG CAPSULE 200 MG PO ×2 (10:26→16:44)
[2024-01-23] MEDS: LOSARTAN POTASSIUM 25 MG TABLET BY MOUTH (10:26)
[2024-01-23] MEDS: TAMSULOSIN HCL 0.4 MG CAPSULE PO ×2 (10:27→16:45)
[2024-01-23] MEDS: FINASTERIDE 5 MG TABLET PO (10:27)
[2024-01-23] MEDS: MAGNESIUM OXIDE 400 MG TABLET PO (10:27)
[2024-01-23] MEDS: dilTIAZem HCL CD 240 MG CAP.24HR PO (10:27)
[2024-01-23] MEDS: PANTOPRAZOLE 40 MG TABLET PO ×2 (10:28→16:45)
[2024-01-23 10:30] VITALS: O2SAT 96
--- NOTE | 2024-01-23 12:22 | PM.IMPN ---
Progress Note: A&P Assessment and Plan (1) Acute UTI: Code(s): N39.0 - Urinary tract infection, site not specified Status: Acute Assessment and Plan: UA: Color red, 3+ protein, 2+ blood, positive nitrate, 2+ bilirubin, 3+ leukocyte esterase, >100 wbc's, > 100 RBCs Patient started on Rocephin 01/21 Urine culture pending. Adjust antibiotic therapy to culture results. (2) Hematuria: Code(s): R31.9 - Hematuria, unspecified Status: Acute Assessment and Plan: UA: Color red, 3+ protein, 2+ blood, positive nitrate, 2+ bilirubin, 3+ leukocyte esterase, >100 wbc's, > 100 RBCs Patient with history of urinary retention. Urology consulted He has been started on CBI 01/21. Renal ultrasound showing small bilateral renal cysts. Hypoechoic defect in the hypo contact cortex at the apex of the right kidney which without correlation of CT scan raises concern for neoplasm. Conti catheter was small amount of clot in the bladder and diffuse mild bladder wall thickening. Will order CT of the abdomen pelvis (3) Chronic anticoagulation: Code(s): Z79.01 - terminal clerk (current) use of anticoagulants Status: Acute Assessment and Plan: Hold Eliquis. H&H remained stable. Continue to monitor. (4) Persistent atrial fibrillation: Code(s): I48.19 - Other persistent atrial fibrillation Status: Acute Assessment and Plan: Patient is rate controlled. Restart Eliquis when appropriate. (5) Heart failure with reduced ejection fraction: Code(s): I50.20 - Unspecified systolic (congestive) heart failure Status: Acute Assessment and Plan: Euvolemic on exam. Will avoid over-hydration. (6) Essential (primary) hypertension: Onset Date: 11/02/16 Code(s): I10 - Essential (primary) hypertension Status: Acute Assessment and Plan: Continue home medication (7) Chronic kidney disease, stage 3: Code(s): N18.30 - Chronic kidney disease, stage 3 unspecified Status: Acute Assessment and Plan: Stable from previous labs. Monitor BMP. (8) Chronic obstructive pulmonary disease: Qualifiers: COPD type: emphysema Emphysema type: centrilobular Qualified Code(s): J43.2 - Centrilobular emphysema Code(s): J44.9 - Chronic obstructive pulmonary disease, unspecified Status: Acute Assessment and Plan: Not in an acute exacerbation. Continue home inhalers. Subjective Date/time seen: 01/23/24 12:22 Interval history: Patient doing well denies any pain. Patient denies ever having experience with hematuria but does have history of urinary retention. He was experiencing dysuria prior to Conti catheter placement. Denies any fever or back pain. Exam Narrative: GENERAL: Comfortable, no acute distress HENMT: moist mucous membranes EYES: EOM intact b/l NECK: no lymphadenopathy RESPIRATORY: clear to auscultation, no increased respiratory effort CARDIO: Regular rate and rhythm GI: soft, nontender, bowel sounds present : Conti catheter draining red urine, CBI in place SKIN/EXTREMITIES: no rashes, no edema, no redness or tenderness NEURO: PROM intact, answers questions appropriately, A&O x4 Objective Data Vital Signs Vital Signs: Vital Signs - 24 hr 01/22/24 12:32 01/22/24 12:47 01/22/24 14:42 Temperature Pulse Rate 71 72 70 Respiratory Rate 21 H 23 H 18 Blood Pressure 103/69 131/70 Pulse Oximetry 97 99 99 Oxygen Delivery Fraction of Inspired Oxygen 01/22/24 13:02 01/22/24 14:45 01/22/24 16:00 Temperature 98.2 F Pulse Rate 78 66 73 Respiratory Rate 23 H 20 20 Blood Pressure 127/65 130/82 108/63 Pulse Oximetry 96 99 97 Oxygen Delivery Fraction of Inspired Oxygen 01/22/24 20:00 01/22/24 22:00 01/23/24 07:44 Temperature 97.1 F L Pulse Rate 81 Respiratory Rate 18 Blood Pressure 108/68 Pulse Oximetry 9
[2024-01-23 14:00] VITALS: BP 109/56; PULSE 80; RESP 18; TEMP 36.3; O2SAT 97
[2024-01-23] MEDS: PRAVASTATIN SODIUM 20 MG TABLET PO (20:38)
[2024-01-23 21:42] VITALS: BP 113/50; PULSE 75; RESP 18; TEMP 36.2; O2SAT 97
[2024-01-24 06:00] VITALS: BP 118/62; PULSE 68; RESP 18; TEMP 36.4; O2SAT 96
[2024-01-24 06:04] LABS: Hematocrit 35.8 % (42.0-52.0); Hemoglobin 11.2 g/dL (14.0-18.0); Mean Corpuscular HGB Conc 31.3 g/dl (32-36); Mean Corpuscular Hemoglobin 28.8 pg (26-34); Mean Platelet Volume 9.7 fl (7.4-10.4); Platelet Count Result 270 k/mm3 (150-375); Red Blood Count 3.89 M/mm3 (4.6-6.20); Red Cell Distribution Width 13.4 % (11.5-14.5); White Blood Count 13.4 K/mm3 (4.5-10.0)
[2024-01-24 06:58] LABS: Anion Gap 6 mmol/L (4-12); Blood Urea Nitrogen 10 mg/dL (9-20); Calcium 8.7 mg/dL (8.4-10.2); Carbon Dioxide 28 mmol/L (22-30); Chloride 103 mmol/L (98-107); Estimated CRCL calculation 52 ml/min; Estimated Glomerular Filt Rate 60; Glucose 100 mg/dL (65-110); Potassium 3.8 mmol/L (3.4-5.0); Sodium 137 mmol/L (137-145)
[2024-01-24] MEDS: FLUTICASONE/UMECLIDIN/VILANTER 100-62.5-25 MCG ELLIPTA 1 PUFF INHALATION (07:36)
[2024-01-24 07:37] VITALS: O2SAT 95
[2024-01-24 08:22] VITALS: BP 111/69; PULSE 80
[2024-01-24] MEDS: MAGNESIUM OXIDE 400 MG TABLET PO (08:23)
[2024-01-24] MEDS: PANTOPRAZOLE 40 MG TABLET PO ×2 (08:23→16:06)
[2024-01-24] MEDS: LOSARTAN POTASSIUM 25 MG TABLET BY MOUTH (08:23)
[2024-01-24] MEDS: TAMSULOSIN HCL 0.4 MG CAPSULE PO ×2 (08:23→16:06)
[2024-01-24] MEDS: FINASTERIDE 5 MG TABLET PO (08:23)
[2024-01-24] MEDS: dilTIAZem HCL CD 240 MG CAP.24HR PO (08:23)
[2024-01-24] MEDS: BENZONATATE 100 MG CAPSULE 200 MG PO ×2 (08:23→16:06)
--- NOTE | 2024-01-24 09:52 | WPDUROPN2 ---
Progress Note: A&P Assessment and Plan (1) Hematuria: Code(s): R31.9 - Hematuria, unspecified Status: Acute Assessment and Plan: Urine remaining clear on slow drip CBI, therefore discontinued this morning. Continue to monitor to ensure remaining clear. Renal US reviewed which showed only small clot in the bladder. F/u CT showed a small clot stuck to cunningham bulb which was irrigated overnight Eliquis remains on hold. Continue to monitor H&H (2) Acute UTI: Code(s): N39.0 - Urinary tract infection, site not specified Status: Ruled-out Assessment and Plan: Urine culture negative. No need for ongoing antibiotics (3) BPH (benign prostatic hyperplasia): Qualifiers: Lower urinary tract symptom presence: unspecified whether lower urinary tract symptoms present Qualified Code(s): N40.0 - Benign prostatic hyperplasia without lower urinary tract symptoms Code(s): N40.0 - Benign prostatic hyperplasia without lower urinary tract symptoms Status: Acute Assessment and Plan: Continue tamsulosin and finasteride. May need to consider additional BPH procedures as an outpatient. He has follow-up scheduled in 1 month for cystoscopy and urodynamics (4) Urinary retention: Code(s): R33.9 - Retention of urine, unspecified Status: Acute Assessment and Plan: Initial onset 12/2023 during hospital admission for pneumonia Failed outpatient void trial x2 and had been doing intermittent self catheterization at home for about 3 days prior to presentation He is awaiting outpatient urodynamics Given issues with retention and hematuria, will plan to continue cunningham catheter on discharge pending further evaluation (5) Renal cyst, right: Code(s): N28.1 - Cyst of kidney, acquired Status: Acute Assessment and Plan: JONO showed hypoechoic area of right renal cortex not previously seen on prior CT F/u CT a/p wo con showed 2 cm cyst of right upper pole with no correlate for hypoechoic area May consider MRI for further evaluation Subjective Subjective Date/Time Seen: 01/24/24 09:52 Interval history: Chilo is feeling well today. Reports early this morning around 3:00 a.m. catheter was not draining and he developed suprapubic pain. RN irrigated out a small clot and urine became clear and was flowing without difficulty. At this time, urine is crystal clear on slow CBI. He denies suprapubic pain or pressure. Denies nausea, vomiting, fever, chills. Tolerating his diet. Review of Systems Review of Systems: All systems reviewed & are unremarkable except as noted in HPI and below Exam Narrative: General: Awake, alert, comfortable, no acute distress HEENT: Normocephalic, atraumatic, sclerae anicteric Respiratory: Normal respiratory effort, no accessory muscle use Abdomen: Nondistended, soft, nontender : 3 way catheter draining clear urine on slow CBI Skin: Normal coloration, warm and dry Neurologic: No focal neuro deficits noted Psychiatric: Appropriate mood and affect, judgment and insight intact Objective Data Vital Signs Vital Signs: Vital Signs - 24 hr 01/23/24 10:30 01/23/24 14:00 01/23/24 20:00 Temperature 97.4 F L Pulse Rate 80 Respiratory Rate 18 Blood Pressure 109/56 L Pulse Oximetry 96 97 Oxygen Delivery Room Air Room Air 01/23/24 21:42 01/24/24 07:37 01/24/24 06:00 Temperature 97.1 F L 97.5 F L Pulse Rate 75 68 Respiratory Rate 18 18 Blood Pressure 113/50 L 118/62 Pulse Oximetry 97 95 96 Oxygen Delivery Room Air 01/24/24 08:22 Temperature Pulse Rate 80 Respiratory Rate Blood Pressure 111/69 Pulse Oximetry Oxygen Delivery Intake/Output Intake/Output: Intake & Output 01/21/24 01/22/24 01/23/24 01/24/24 23:59 23:59 23:59 23:59 Intake Total 65272 720 840 Output Total 02331 2610 Balance -1460 -1890 840 Meds/Results Medications: Active Medications Gene
--- NOTE | 2024-01-24 12:37 | PM.IMPN ---
Progress Note: A&P Assessment and Plan (1) Hematuria: Code(s): R31.9 - Hematuria, unspecified Status: Acute Assessment and Plan: UA: Color red, 3+ protein, 2+ blood, positive nitrate, 2+ bilirubin, 3+ leukocyte esterase, >100 wbc's, > 100 RBCs Patient with history of urinary retention. Urology consulted Started on CBI 01/21, discontinued on 01/23 in the manager in home Renal ultrasound showing small bilateral renal cysts. Hypoechoic defect in the hypo contact cortex at the apex of the right kidney which without correlation of CT scan raises concern for neoplasm. Cunningham catheter was small amount of clot in the bladder and diffuse mild bladder wall thickening. CT of the abdomen pelvis showed a small clot stuck to Cunningham bulb which was irrigated on 01/23 (2) Acute UTI: Code(s): N39.0 - Urinary tract infection, site not specified Status: Ruled-out Assessment and Plan: UA: Color red, 3+ protein, 2+ blood, positive nitrate, 2+ bilirubin, 3+ leukocyte esterase, >100 wbc's, > 100 RBCs Patient started on Rocephin 01/21, discontinued on 01/23 due to no growth on culture. Urine culture no growth. (3) Urinary retention: Code(s): R33.9 - Retention of urine, unspecified Status: Acute Assessment and Plan: Initial onset 12/2023 during hospital admission for pneumonia Failed outpatient void trial x2 and had been doing intermittent self catheterization at home for about 3 days prior to presentation He is awaiting outpatient urodynamics Given issues with retention and hematuria, will plan to continue cunningham catheter on discharge per urology recommendations. (4) Chronic anticoagulation: Code(s): Z79.01 - intermediate (current) use of anticoagulants Status: Acute Assessment and Plan: Hold Eliquis. H&H remained stable. Continue to monitor. (5) Persistent atrial fibrillation: Code(s): I48.19 - Other persistent atrial fibrillation Status: Acute Assessment and Plan: Patient is rate controlled. Restart Eliquis when appropriate. (6) Heart failure with reduced ejection fraction: Code(s): I50.20 - Unspecified systolic (congestive) heart failure Status: Acute Assessment and Plan: Euvolemic on exam. Will avoid over-hydration. (7) Renal cyst, right: Code(s): N28.1 - Cyst of kidney, acquired Status: Acute Assessment and Plan: JONO showed hypoechoic area of right renal cortex not previously seen on prior CT F/u CT a/p wo con showed 2 cm cyst of right upper pole with no correlate for hypoechoic area May consider MRI for further evaluation (8) Essential (primary) hypertension: Onset Date: 11/02/16 Code(s): I10 - Essential (primary) hypertension Status: Acute Assessment and Plan: Continue home medication (9) Chronic kidney disease, stage 3: Code(s): N18.30 - Chronic kidney disease, stage 3 unspecified Status: Acute Assessment and Plan: Stable from previous labs. Monitor BMP. (10) Chronic obstructive pulmonary disease: Qualifiers: COPD type: emphysema Emphysema type: centrilobular Qualified Code(s): J43.2 - Centrilobular emphysema Code(s): J44.9 - Chronic obstructive pulmonary disease, unspecified Status: Acute Assessment and Plan: Not in an acute exacerbation. Continue home inhalers. Subjective Date/time seen: 01/24/24 12:37 Interval history: patient doing well. Overnight patient a clot blocking his catheter causing suprapubic pain. They were able to evacuate the clot. Urology discontinued CBI today. Will monitor patient overnight and possible discharge with Cunningham catheter tomorrow. Exam Narrative: GENERAL: Comfortable, no acute distress HENMT: moist mucous membranes EYES: EOM intact b/l NECK: no lymphadenopathy RESPIRATORY: clear to auscultation, no increas
[2024-01-24 14:00] VITALS: BP 102/49; PULSE 65; RESP 16; TEMP 36.8; O2SAT 97
[2024-01-24] MEDS: PRAVASTATIN SODIUM 20 MG TABLET PO (20:03)
[2024-01-24 22:00] VITALS: BP 109/69; PULSE 66; RESP 18; TEMP 36.7; O2SAT 97
[2024-01-25 05:35] LABS: Hematocrit 36.4 % (42.0-52.0); Hemoglobin 11.7 g/dL (14.0-18.0); Mean Corpuscular HGB Conc 32.1 g/dl (32-36); Mean Corpuscular Volume 90.1 fl (80-100); Mean Platelet Volume 9.4 fl (7.4-10.4); Platelet Count Result 261 k/mm3 (150-375); Red Blood Count 4.04 M/mm3 (4.6-6.20); Red Cell Distribution Width 13.4 % (11.5-14.5); White Blood Count 13.7 K/mm3 (4.5-10.0)
[2024-01-25 05:55] LABS: Anion Gap 2 mmol/L (4-12); Blood Urea Nitrogen 11 mg/dL (9-20); Calcium 8.8 mg/dL (8.4-10.2); Carbon Dioxide 30 mmol/L (22-30); Chloride 106 mmol/L (98-107); Estimated CRCL calculation 56 ml/min; Estimated Glomerular Filt Rate > 60; Glucose 106 mg/dL (65-110); Potassium 4.1 mmol/L (3.4-5.0); Sodium 138 mmol/L (137-145)
[2024-01-25 06:00] VITALS: BP 117/64; PULSE 65; RESP 18; TEMP 36.3; O2SAT 97
[2024-01-25 07:35] VITALS: PULSE 67; RESP 18; O2SAT 96
[2024-01-25] MEDS: FLUTICASONE/UMECLIDIN/VILANTER 100-62.5-25 MCG ELLIPTA 1 PUFF INHALATION (07:35)
[2024-01-25] MEDS: PANTOPRAZOLE 40 MG TABLET PO ×2 (08:13→16:10)
[2024-01-25] MEDS: MAGNESIUM OXIDE 400 MG TABLET PO (08:13)
[2024-01-25] MEDS: BENZONATATE 100 MG CAPSULE 200 MG PO ×2 (08:13→16:09)
[2024-01-25] MEDS: FINASTERIDE 5 MG TABLET PO (08:13)
[2024-01-25] MEDS: LOSARTAN POTASSIUM 25 MG TABLET BY MOUTH (08:14)
[2024-01-25] MEDS: TAMSULOSIN HCL 0.4 MG CAPSULE PO ×2 (08:14→16:10)
[2024-01-25] MEDS: dilTIAZem HCL CD 240 MG CAP.24HR PO (08:14)
[2024-01-25 08:15] VITALS: BP 112/71; PULSE 79
--- NOTE | 2024-01-25 09:47 | WPDUROPN2 ---
Progress Note: A&P Assessment and Plan (1) Hematuria: Code(s): R31.9 - Hematuria, unspecified Status: Resolved Assessment and Plan: Urine now clear with CBI off Irrigated large clot today but urine remained clear Okay to resume Eliquis at this time. Continue to monitor urine closely to ensure remains clear after restarting this medication H&H remained stable (2) Acute UTI: Code(s): N39.0 - Urinary tract infection, site not specified Status: Ruled-out Assessment and Plan: Urine culture negative. No need for ongoing antibiotics (3) BPH (benign prostatic hyperplasia): Qualifiers: Lower urinary tract symptom presence: unspecified whether lower urinary tract symptoms present Qualified Code(s): N40.0 - Benign prostatic hyperplasia without lower urinary tract symptoms Code(s): N40.0 - Benign prostatic hyperplasia without lower urinary tract symptoms Status: Acute Assessment and Plan: Continue tamsulosin and finasteride. May need to consider additional BPH procedures as an outpatient. He has follow-up scheduled in 1 month for cystoscopy and urodynamics (4) Urinary retention: Code(s): R33.9 - Retention of urine, unspecified Status: Acute Assessment and Plan: Initial onset 12/2023 during hospital admission for pneumonia Failed outpatient void trial x2 and had been doing intermittent self catheterization at home for about 3 days prior to presentation He is awaiting outpatient urodynamics Given issues with retention and hematuria, will plan to continue cunningham catheter on discharge pending further outpatient evaluation (5) Renal cyst, right: Code(s): N28.1 - Cyst of kidney, acquired Status: Acute Assessment and Plan: JONO showed hypoechoic area of right renal cortex not previously seen on prior CT F/u CT a/p wo con showed 2 cm cyst of right upper pole with no correlate for hypoechoic area Will need MRI with/without contrast for further evaluation Subjective Subjective Date/Time Seen: 01/25/24 09:47 Interval history: Overall doing well today. States that about 20 minutes ago his Cunningham stopped draining and he is starting to feel some suprapubic pressure. I irrigated his catheter at the bedside with return of 1 large clot. Urine remained crystal clear and was draining well after irrigation of clot. His suprapubic pressure resolved. He has no other concerns today. Review of Systems Review of Systems: All systems reviewed & are unremarkable except as noted in HPI and below Exam Narrative: General: Awake, alert, comfortable, no acute distress HEENT: Normocephalic, atraumatic, sclerae anicteric Respiratory: Normal respiratory effort, no accessory muscle use Abdomen: Nondistended, soft, nontender : 3 way catheter draining clear urine with CBI off Skin: Normal coloration, warm and dry Neurologic: No focal neuro deficits noted Psychiatric: Appropriate mood and affect, judgment and insight intact Objective Data Vital Signs Vital Signs: Vital Signs - 24 hr 01/24/24 14:00 01/24/24 20:00 01/24/24 22:00 Temperature 98.3 F 98.0 F Pulse Rate 65 66 Respiratory Rate 16 18 Blood Pressure 102/49 L 109/69 Pulse Oximetry 97 97 Oxygen Delivery Room Air Fraction of Inspired Oxygen 01/25/24 07:35 01/25/24 07:35 01/25/24 06:00 Temperature 97.3 F L Pulse Rate 67 65 Respiratory Rate 18 18 Blood Pressure 117/64 Pulse Oximetry 96 97 Oxygen Delivery Room Air Fraction of Inspired Oxygen 01/25/24 08:15 Temperature Pulse Rate 79 Respiratory Rate Blood Pressure 112/71 Pulse Oximetry Oxygen Delivery Fraction of Inspired Oxygen Intake/Output Intake/Output: Intake & Output 01/22/24 01/23/24 01/24/24 01/25/24 23:59 23:59 23:59 23:59 Intake Total 44673 720 1940 240 Output Total 36914 2610 1250 Balance -1460 -1890 690 240 Meds/Results Medications: A
[2024-01-25] MEDS: APIXABAN 5 MG TABLET PO ×2 (11:51→19:54)
[2024-01-25 14:00] VITALS: BP 106/78; PULSE 73; RESP 20; TEMP 37.2; O2SAT 97
--- NOTE | 2024-01-25 14:07 | P.PNIM_ITS ---
Progress Note: A&P Assessment and Plan (1) Hematuria: Code(s): R31.9 - Hematuria, unspecified Status: Resolved Assessment and Plan: UA: Color red, 3+ protein, 2+ blood, positive nitrate, 2+ bilirubin, 3+ leukoc yte esterase, >100 wbc's, > 100 RBCs * Patient with history of urinary retention. * Urology consulted * Started on CBI 01/21, discontinued on 01/23 in the scientific diver * Renal ultrasound showing small bilateral renal cysts. Hypoechoic defect in the hypo contact cortex at the apex of the right kidney which without correlation of CT scan raises concern for neoplasm. Cunningham catheter was small amount of clot in the bladder and diffuse mild bladder wall thickening. * CT of the abdomen pelvis showed a small clot stuck to Cunningham bulb which was irrigated on 01/23 * Patient had to have clot evacuated on 01/23 and 01/24. Will restart Eliquis and monitor H&H. Possible discharge tomorrow. (2) Acute UTI: Code(s): N39.0 - Urinary tract infection, site not specified Status: Ruled-out Assessment and Plan: UA: Color red, 3+ protein, 2+ blood, positive nitrate, 2+ bilirubin, 3+ leukocyte esterase, >100 wbc's, > 100 RBCs * Patient started on Rocephin 01/21, discontinued on 01/23 due to no growth on culture. * Urine culture no growth. (3) Urinary retention: Code(s): R33.9 - Retention of urine, unspecified Status: Acute Assessment and Plan: Initial onset 12/2023 during hospital admission for pneumonia * Failed outpatient void trial x2 and had been doing intermittent self catheterization at home for about 3 days prior to presentation. * He is awaiting outpatient urodynamics. * Given issues with retention and hematuria, will plan to continue cunningham catheter on discharge per urology recommendations. (4) Chronic anticoagulation: Code(s): Z79.01 - [facility] (current) use of anticoagulants Status: Acute Assessment and Plan: * Hold Eliquis. * H&H remained stable. Continue to monitor. (5) Persistent atrial fibrillation: Code(s): I48.19 - Other persistent atrial fibrillation Status: Acute Assessment and Plan: * Patient is rate controlled. * Restart Eliquis when appropriate. (6) Heart failure with reduced ejection fraction: Code(s): I50.20 - Unspecified systolic (congestive) heart failure Status: Acute Assessment and Plan: Euvolemic on exam. Will avoid over-hydration. (7) Renal cyst, right: Code(s): N28.1 - Cyst of kidney, acquired Status: Acute Assessment and Plan: * JONO showed hypoechoic area of right renal cortex not previously seen on prior CT * F/u CT a/p wo con showed 2 cm cyst of right upper pole with no correlate for hypoechoic area * May consider MRI for further evaluation (8) Essential (primary) hypertension: Onset Date: 11/02/16 Code(s): I10 - Essential (primary) hypertension Status: Acute Assessment and Plan: Continue home medication (9) Chronic kidney disease, stage 3: Code(s): N18.30 - Chronic kidney disease, stage 3 unspecified Status: Acute Assessment and Plan: Stable from previous labs. Monitor BMP. (10) Chronic obstructive pulmonary disease: Qualifiers: COPD type: emphysema Emphysema type: centrilobular Qualified Code(s): J43.2 - Centrilobular emphysema Code(s): J44.9 - Chronic obstructive pulmonary d
--- NOTE | 2024-01-25 14:07 | PM.IMPN ---
Progress Note: A&P Assessment and Plan (1) Hematuria: Code(s): R31.9 - Hematuria, unspecified Status: Resolved Assessment and Plan: UA: Color red, 3+ protein, 2+ blood, positive nitrate, 2+ bilirubin, 3+ leukocyte esterase, >100 wbc's, > 100 RBCs Patient with history of urinary retention. Urology consulted Started on CBI 01/21, discontinued on 01/23 in the wine sales representative Renal ultrasound showing small bilateral renal cysts. Hypoechoic defect in the hypo contact cortex at the apex of the right kidney which without correlation of CT scan raises concern for neoplasm. Cunningham catheter was small amount of clot in the bladder and diffuse mild bladder wall thickening. CT of the abdomen pelvis showed a small clot stuck to Cunningham bulb which was irrigated on 01/23 Patient had to have clot evacuated on 01/23 and 01/24. Will restart Eliquis and monitor H&H. Possible discharge tomorrow. (2) Acute UTI: Code(s): N39.0 - Urinary tract infection, site not specified Status: Ruled-out Assessment and Plan: UA: Color red, 3+ protein, 2+ blood, positive nitrate, 2+ bilirubin, 3+ leukocyte esterase, >100 wbc's, > 100 RBCs Patient started on Rocephin 01/21, discontinued on 01/23 due to no growth on culture. Urine culture no growth. (3) Urinary retention: Code(s): R33.9 - Retention of urine, unspecified Status: Acute Assessment and Plan: Initial onset 12/2023 during hospital admission for pneumonia Failed outpatient void trial x2 and had been doing intermittent self catheterization at home for about 3 days prior to presentation. He is awaiting outpatient urodynamics. Given issues with retention and hematuria, will plan to continue cunningham catheter on discharge per urology recommendations. (4) Chronic anticoagulation: Code(s): Z79.01 - [facility] living (current) use of anticoagulants Status: Acute Assessment and Plan: Hold Eliquis. H&H remained stable. Continue to monitor. (5) Persistent atrial fibrillation: Code(s): I48.19 - Other persistent atrial fibrillation Status: Acute Assessment and Plan: Patient is rate controlled. Restart Eliquis when appropriate. (6) Heart failure with reduced ejection fraction: Code(s): I50.20 - Unspecified systolic (congestive) heart failure Status: Acute Assessment and Plan: Euvolemic on exam. Will avoid over-hydration. (7) Renal cyst, right: Code(s): N28.1 - Cyst of kidney, acquired Status: Acute Assessment and Plan: JONO showed hypoechoic area of right renal cortex not previously seen on prior CT F/u CT a/p wo con showed 2 cm cyst of right upper pole with no correlate for hypoechoic area May consider MRI for further evaluation (8) Essential (primary) hypertension: Onset Date: 11/02/16 Code(s): I10 - Essential (primary) hypertension Status: Acute Assessment and Plan: Continue home medication (9) Chronic kidney disease, stage 3: Code(s): N18.30 - Chronic kidney disease, stage 3 unspecified Status: Acute Assessment and Plan: Stable from previous labs. Monitor BMP. (10) Chronic obstructive pulmonary disease: Qualifiers: COPD type: emphysema Emphysema type: centrilobular Qualified Code(s): J43.2 - Centrilobular emphysema Code(s): J44.9 - Chronic obstructive pulmonary disease, unspecified Status: Acute Assessment and Plan: Not in an acute exacerbation. Continue home inhalers. Subjective Date/time seen: 01/25/24 14:07 Interval history: Patient had another episode of bloating and lower abdominal pain this morning. Urology was able to evacuate another clot. His urine is now on clear. Will restart Eliquis. Monitor H&H. Possible discharge tomorrow. Exam Narrative: GENERAL: Comfortable, no acute distress HENMT: moist mucous membranes E
[2024-01-25] MEDS: PRAVASTATIN SODIUM 20 MG TABLET PO (19:54)
[2024-01-25 20:20] VITALS: BP 128/60; PULSE 68; RESP 18; TEMP 36.4; O2SAT 98
[2024-01-25 21:37] VITALS: O2SAT 97
[2024-01-26 04:50] VITALS: BP 119/66; PULSE 82; RESP 18; TEMP 36.7; O2SAT 96
[2024-01-26 05:49] LABS: Hematocrit 37.7 % (42.0-52.0); Hemoglobin 12.3 g/dL (14.0-18.0); Mean Corpuscular HGB Conc 32.6 g/dl (32-36); Mean Corpuscular Hemoglobin 29.5 pg (26-34); Mean Corpuscular Volume 90.4 fl (80-100); Mean Platelet Volume 9.5 fl (7.4-10.4); Platelet Count Result 295 k/mm3 (150-375); Red Blood Count 4.17 M/mm3 (4.6-6.20); Red Cell Distribution Width 13.5 % (11.5-14.5); White Blood Count 12.6 K/mm3 (4.5-10.0)
[2024-01-26 06:00] LABS: Anion Gap 5 mmol/L (4-12); Blood Urea Nitrogen 10 mg/dL (9-20); Calcium 8.9 mg/dL (8.4-10.2); Carbon Dioxide 27 mmol/L (22-30); Chloride 106 mmol/L (98-107); Estimated CRCL calculation 59 ml/min; Estimated Glomerular Filt Rate > 60; Glucose 98 mg/dL (65-110); Potassium 4.2 mmol/L (3.4-5.0); Sodium 138 mmol/L (137-145)
[2024-01-26 07:11] VITALS: PULSE 66; RESP 18; O2SAT 96
[2024-01-26] MEDS: FLUTICASONE/UMECLIDIN/VILANTER 100-62.5-25 MCG ELLIPTA 1 PUFF INHALATION (07:11)
[2024-01-26] MEDS: dilTIAZem HCL CD 240 MG CAP.24HR PO (08:33)
[2024-01-26] MEDS: BENZONATATE 100 MG CAPSULE 200 MG PO (08:33)
[2024-01-26] MEDS: LOSARTAN POTASSIUM 25 MG TABLET BY MOUTH (08:33)
[2024-01-26] MEDS: TAMSULOSIN HCL 0.4 MG CAPSULE PO (08:33)
[2024-01-26] MEDS: FINASTERIDE 5 MG TABLET PO (08:33)
[2024-01-26] MEDS: MAGNESIUM OXIDE 400 MG TABLET PO (08:33)
[2024-01-26] MEDS: APIXABAN 5 MG TABLET PO (08:33)
[2024-01-26] MEDS: PANTOPRAZOLE 40 MG TABLET PO (08:33)
--- NOTE | 2024-01-26 08:45 | WPDUROPN2 ---
Progress Note: A&P Assessment and Plan (1) Hematuria: Code(s): R31.9 - Hematuria, unspecified Status: Resolved Assessment and Plan: Resolved. CBI discontinued. Eliquis restarted. Urine remains clear. H&H stable. Okay for discharge from urologic standpoint. (2) Acute UTI: Code(s): N39.0 - Urinary tract infection, site not specified Status: Ruled-out Assessment and Plan: Urine culture negative. No need for ongoing antibiotics (3) BPH (benign prostatic hyperplasia): Qualifiers: Lower urinary tract symptom presence: unspecified whether lower urinary tract symptoms present Qualified Code(s): N40.0 - Benign prostatic hyperplasia without lower urinary tract symptoms Code(s): N40.0 - Benign prostatic hyperplasia without lower urinary tract symptoms Status: Acute Assessment and Plan: Continue tamsulosin and finasteride. May need to consider additional BPH procedures as an outpatient. He has follow-up scheduled in 1 month for cystoscopy and urodynamics (4) Urinary retention: Code(s): R33.9 - Retention of urine, unspecified Status: Acute Assessment and Plan: Initial onset 12/2023 during hospital admission for pneumonia Failed outpatient void trial x2 and had been doing intermittent self catheterization at home for about 3 days prior to presentation He is awaiting outpatient urodynamics Given issues with retention and hematuria, will plan to continue cunningham catheter on discharge pending further outpatient evaluation (5) Renal cyst, right: Code(s): N28.1 - Cyst of kidney, acquired Status: Acute Assessment and Plan: JONO showed hypoechoic area of right renal cortex not previously seen on prior CT F/u CT a/p wo con showed 2 cm cyst of right upper pole with no correlate for hypoechoic area Will need MRI with/without contrast for further evaluation Subjective Subjective Date/Time Seen: 01/26/24 08:45 Interval history: Chilo is feeling well today. His catheter is draining without difficulty and has remained clear yellow. He has no suprapubic pain or fullness. He is tolerating his diet well and denies N/V/F/C. Review of Systems Review of Systems: All systems reviewed & are unremarkable except as noted in HPI and below Exam Narrative: General: Awake, alert, comfortable, no acute distress HEENT: Normocephalic, atraumatic, sclerae anicteric Respiratory: Normal respiratory effort, no accessory muscle use Abdomen: Nondistended, soft, nontender : 3 way catheter draining clear urine off CBI Skin: Normal coloration, warm and dry Neurologic: No focal neuro deficits noted Psychiatric: Appropriate mood and affect, judgment and insight intact Objective Data Vital Signs Vital Signs: Vital Signs - 24 hr 01/25/24 14:00 01/25/24 20:20 01/25/24 21:37 Temperature 98.9 F 97.6 F Pulse Rate 73 68 Respiratory Rate 20 18 Blood Pressure 106/78 128/60 Pulse Oximetry 97 98 97 Oxygen Delivery Room Air Fraction of Inspired Oxygen 01/26/24 04:50 01/26/24 07:11 01/26/24 07:11 Temperature 98.1 F Pulse Rate 82 66 Respiratory Rate 18 18 Blood Pressure 119/66 Pulse Oximetry 96 96 Oxygen Delivery Room Air Fraction of Inspired Oxygen 21 01/26/24 08:00 Temperature Pulse Rate Respiratory Rate Blood Pressure Pulse Oximetry Oxygen Delivery Room Air Fraction of Inspired Oxygen Intake/Output Intake/Output: Intake & Output 01/23/24 01/24/24 01/25/24 01/26/24 23:59 23:59 23:59 23:59 Intake Total 720 1940 720 690 Output Total 2610 1250 1800 950 Balance -7060 690 -3330 -260 Meds/Results Medications: Active Medications Generic Name Dose Route Start Last Admin Trade Name Freq PRN Reason Stop Dose Admin Acetaminophen 650 mg 01/22/24 13:32 Acetaminophen 325 Mg Tablet PO Q4H PRN Mild Pain (1-3) or Fever Hydrocodone Bitart/Acetaminophen 1 tab 01/22/24
--- NOTE | 2024-01-26 11:18 | PM.DS ---
DS: Admitting Diagnosis Discharge Date 01/26/24 Admitting Diagnosis hematuria DS: Discharge Diagnosis Discharge Diagnosis (1) Hematuria: Code(s): R31.9 - Hematuria, unspecified Status: Resolved (2) Acute UTI: Code(s): N39.0 - Urinary tract infection, site not specified Status: Ruled-out (3) Urinary retention: Code(s): R33.9 - Retention of urine, unspecified Status: Acute (4) Chronic anticoagulation: Code(s): Z79.01 - [facility] (current) use of anticoagulants Status: Acute (5) Persistent atrial fibrillation: Code(s): I48.19 - Other persistent atrial fibrillation Status: Acute (6) Heart failure with reduced ejection fraction: Code(s): I50.20 - Unspecified systolic (congestive) heart failure Status: Acute (7) Renal cyst, right: Code(s): N28.1 - Cyst of kidney, acquired Status: Acute (8) Essential (primary) hypertension: Onset Date: 11/02/16 Code(s): I10 - Essential (primary) hypertension Status: Acute (9) Chronic kidney disease, stage 3: Code(s): N18.30 - Chronic kidney disease, stage 3 unspecified Status: Acute (10) Chronic obstructive pulmonary disease: Qualifiers: COPD type: emphysema Emphysema type: centrilobular Qualified Code(s): J43.2 - Centrilobular emphysema Code(s): J44.9 - Chronic obstructive pulmonary disease, unspecified Status: Acute DS: Summary Hospital Course Hospital Course: This is a very pleasant 73-year-old male with atrial fibrillation on chronic anticoagulation, chronic obstructive pulmonary disease, heart failure with reduced ejection fraction with an EF of 40 to 45%, diastolic dysfunction, coronary artery disease, hypertension, chronic kidney disease, benign prostatic hyperplasia, oral cancer status post resection, and gastroesophageal reflux disease for evaluation of difficulties urinating and blood in urine on straight catheterization. More recently he was taught to self-catheterize which he has been doing. He noticed some blood in the urine towards the end. The next day there was blood in his urine all day but he was able to urinate without issue. Later that night he had the urge to urinate, was unable to do so, and when he did his straight catheterization he reports dark red blood. In the ED: He was afebrile on arrival with stable vital signs. Labs were significant for a WBC count of 9.3, hemoglobin 11.3, sodium 136. Urine was red and turbid with 2+ blood, 3+ leukocyte esterase, greater than 100 RBC and WBC, and positive nitrates. He was started on ceftriaxone and CBI and he is being admitted in this setting for further treatment and urology consultation. Patient's urine culture came back with no growth and his antibiotic was discontinued. CBI was discontinued on 01/23. Renal ultrasound showing small bilateral renal cysts. Hypoechoic defect in the hypo contact cortex at the apex of the right kidney which without correlation of CT scan raises concern for neoplasm. Conti catheter was small amount of clot in the bladder and diffuse mild bladder wall thickening. CT of the abdomen pelvis showed a small clot stuck to Conti bulb which was irrigated on 01/23. Patient's Eliquis was restarted and his H&H as well as urine was monitor for 24 hours. He was cleared by Urology to discharge with Conti catheter and follow-up with them as an outpatient. His labs and vital signs are stable and he is medically cleared for discharge at this time. Time Spent with Patient Time attestation: Total time spent providing and/or coordinating discharge services: Exam Narrative: GENERAL: Comfortable, no acute distress HENMT: moist mucous membranes EYES: EOM intact b/l NECK: no lymphadenopathy RESPIRATORY: clear to auscultation, no increased respiratory effort CARDIO: Regular rate and rhythm GI: soft, nontender, bowel sounds present : Conti catheter in place draining yellow urine
== END 2024-01-26 13:25 | disposition home or self-care (01) | DRG 696 ==
LOC: ANHED 11:11 → ANH3MED 14:42
PROVIDERS: Internal Medicine Critical Care Medicine; Physician Assistant; Admitting Provider Internal Medicine; Emergency Provider Emergency Medicine; PCP Family Medicine; Visit Provider Internal Medicine
DX: R31.0 Gross hematuria (principal); I13.0 Hypertensive heart and chronic kidney disease with heart failure and stage 1 through stage 4 chronic kidney disease, or unspecified chronic kidney disease; I48.19 Other persistent atrial fibrillation; I50.22 Chronic systolic (congestive) heart failure; N28.1 Cyst of kidney, acquired; E55.9 Vitamin D deficiency, unspecified; E78.5 Hyperlipidemia, unspecified; J43.2 Centrilobular emphysema; I25.10 Atherosclerotic heart disease of native coronary artery without angina pectoris; I25.2 Old myocardial infarction; N18.30 Chronic kidney disease, stage 3 unspecified; N40.1 Benign prostatic hyperplasia with lower urinary tract symptoms; R33.8 Other retention of urine; K21.9 Gastro-esophageal reflux disease without esophagitis; M81.0 Age-related osteoporosis without current pathological fracture; Z85.819 Personal history of malignant neoplasm of unspecified site of lip, oral cavity, and pharynx; Z79.01 Long term (current) use of anticoagulants; Z87.891 Personal history of nicotine dependence; Z98.41 Cataract extraction status, right eye; Z98.42 Cataract extraction status, left eye
CPT/HCPCS: 36415; 74176; 76775; 80048; 80053; 81001; 83735; 85014; 85018; 85025; 85027; 85610; 85730; 87086; 94640; 96374; 96375; 99285; A9270; G0378; J0696; J3475

== ENCOUNTER 2024-02-20 12:04 | Outpatient (CLI) | payer MEDICARE, OTHER, SELFPAY ==
--- NOTE | ~2024-02-20 | XR_ITS ---
Clinical Indication: Pneumonia PA and lateral views of the chest: Comparison: 12/25/2023 Findings: Stable COPD pattern. Stable calcified granulomas or nodules in the right upper lobe.. Card iomediastinal silhouette is within normal limits. Bones and soft tissues are unremarkable. Impression: No acute abnormality. Stable COPD and calcified right upper lobe pulmonary nodules. Reviewed, dictated and finalized at [facility]. Impression: No acute abnormality. Stable COPD and calcified right upper lobe pulmonary nodules.
== END 2024-02-20 12:05 | disposition home or self-care (01) ==
PROVIDERS: PCP Family Medicine; Visit Provider Nurse Practitioner Family
DX: J18.9 Pneumonia, unspecified organism (principal); R06.02 Shortness of breath; R05.9 Cough, unspecified; R53.1 Weakness; J44.9 Chronic obstructive pulmonary disease, unspecified; R91.8 Other nonspecific abnormal finding of lung field
CPT/HCPCS: 71046

== ENCOUNTER 2024-04-19 10:59 | Outpatient (CLI) | payer MEDICARE, OTHER, SELFPAY ==
--- NOTE | ~2024-04-19 | XR_ITS ---
Clinical Indication: Cough PA and lateral views of the chest: Comparison: 02/20/2024 Findings: COPD pattern of the lungs is unchanged. Stable calcified nodule in the right upper lobe reg ion.. Cardiomediastinal silhouette is within normal limits. Bones and soft tissues are unremarkable. Impression: COPD pattern. Stable calcified right upper lobe pulmonary nodule. Reviewed, dictated and finalized at location . Impression: COPD pattern. Stable calcified right upper lobe pulmonary nodule.
== END 2024-04-19 11:00 | disposition home or self-care (01) ==
LOC: CHSIMG 11:03
PROVIDERS: PCP Family Medicine; Visit Provider Physician Assistant
DX: R05.9 Cough, unspecified (principal); R91.8 Other nonspecific abnormal finding of lung field
CPT/HCPCS: 71046

== ENCOUNTER 2024-06-11 14:36 | Outpatient (CLI) | payer MEDICARE, OTHER, SELFPAY ==
--- NOTE | ~2024-06-11 | XR_ITS ---
XR shoulder RT min 2V Ordering provider: Summer Ribeiro PA-C History: . M25.511 - Pain in right shoulder . Comparison: None. FINDINGS: BONES: No acute fracture or dislocation. JOINT SPACES: The acromioclavicular joint is normal. The glenohumeral joint shows mild osteoarthritic changes SOFT TISSUES: Normal. IMPRESSION: No acute osseous abnormality right shoulder. Mild osteoarthritic changes of the glenohumeral joint. Reviewed, dictated and finalized at location A. ERCIAL REAL ESTATE ASSOCIATE
--- NOTE | ~2024-06-11 | XR_ITS ---
CHEST RADIOGRAPH, PA AND LATERAL CLINICAL HISTORY: R06.00 - Dyspnea, unspecified . COMPARISON: 04/19/2024. Reference is also made to a CT examination of the chest dated 11/14/2023 TECHNIQUE: PA and lateral views of the chest. FINDINGS The cardiomediastinal silhouette is unremarkable. Redemonstration of calcified nodule within the right upper lobe. Redemonstration of biapical scarring. Increased lucency within the bilateral lung case suggest progression of known emphysematous disease . S shaped curvature of the thoracic spine is redemonstrated. Pectus excavatum incidentally noted. Diffuse bony demineralization. Remaining visualized osseous structures and soft tissues are unremarkable. IMPRESSION: Severe emphysematous disease, without focal infiltrate or effusion. If clinical suspicion persists, cross-sectional imaging (noncontrast enhanced CT examination of the c hest) is suggested for further evaluation. Reviewed, dictated and finalized at location A. A CONSULTANT IMPRESSION: Severe emphysematous disease, without focal infiltrate or effusion. If clinical suspicion persists, cross-sectional imaging (noncontrast enhanced C T examination of the chest) is suggested for further evaluation.
== END 2024-06-11 14:37 | disposition home or self-care (01) ==
PROVIDERS: PCP Family Medicine; Visit Provider Physician Assistant
DX: R06.00 Dyspnea, unspecified (principal); M19.011 Primary osteoarthritis, right shoulder
CPT/HCPCS: 71046; 73030

== ENCOUNTER 2024-06-19 13:43 | Outpatient (RCR) | payer MEDICARE, OTHER, SELFPAY ==
--- NOTE | 2024-06-19 15:34 | PTOPEVAL1 ---
Assessment and note entered by Radha Haywood DPT Evaluation Information Assessment Status Evaluation Diagnosis R shoulder pain, low back pain ICD-10 Condition Codes (PT) Pain in low back M54.50,M25.511 Other ICD-10 Condition Codes ( M47.816, R26.81 PT) Onset 06/12/24 Subjective Information Patient reports he has been having low back pain and R shoulder pain. He reports that his back pain is there constantly and reports that his shoulder pain is getting worse. He reports his shoulder hurts when he reaches out in front of him and reaching over head. He reports his back pain is worse with standing and walking prolonged distances. He reports he is using a rollator for walking longer periods of time. He has no follow up scheduled with MD at this time. He reports he has been taking a muscle relaxer and that has decreased pain. Reported Pain Level Pain Score 0,2: Self Report Assessment PT Clinical Summary Mr. Cross is a 74 year old male who presents to PT with low back and R shoulder pain. He demonstrates decreased R shoulder strength and ROM , decreased LE flexibility and impaired posture limiting his ability to stand to complete house hold tasks, reach over head and ambulate prolonged distances. He would benefit from skilled PT to address impairments and return to PLOF. Plan of Care Interventions Electrical Stimulation,Hot Pack/Cold Pack,Neuro Re -education,Patient/Caregiver Educati,Therapeutic Activities,Therapeutic Exercise PT Services Indicated Yes Treatment Frequency and 2x weekly for 10 visits Duration These treatments will address the objective and functional deficits as defined above. The patient will be advanced safely and appropriately in order for the patient to progress towards his/her prior level of function. Additional exercises will be introduced and as well as a comprehensive home exercise program upon discharge, if needed, ?to ensure carryover of functional gains achieved in the clinic. This treatment plan has been reviewed and agreement upon by the patient.
--- NOTE | 2024-07-17 13:01 | PCPTNOTE ---
Patient called & cancelled scheduled appointment this date due to [being in the hospital ]
--- NOTE | 2024-08-27 09:48 | PCPTNOTE ---
Pt. called and canceled his appointmet this morning due to weather. He states with colder weather this week he would like to wait till next week before returning due to his health problems combined with cold weather.
== END 2024-09-17 23:59 | disposition home or self-care (01) ==
LOC: CHSPT 13:43
PROVIDERS: Visit Provider Physician Assistant
DX: M25.511 Pain in right shoulder (principal); M47.816 Spondylosis without myelopathy or radiculopathy, lumbar region; M54.50 Low back pain, unspecified; R26.81 Unsteadiness on feet
CPT/HCPCS: 97014; 97110; 97161; G0283

== ENCOUNTER 2024-07-14 16:04 | Inpatient (IN) | payer MEDICARE, OTHER, SELFPAY ==
[2024-07-14] VITALS (14 sets, daily range): BP systolic 101–157; BP diastolic 58–90; PULSE 91–118; RESP 20–24; TEMP 36.5–36.8; O2SAT 95–99; BMI 21.3
--- NOTE | ~2024-07-14 | XR_ITS ---
XR chest 1V portable DATE: 07/14/2024 16:35 INDICATION: Shortness of breath, dyspnea, left-sided chest pain TECHNIQUE: 2 portable upright AP views on 07/14/2024 at 1633 hours COMPARISON: 06/11/2024 PA and lateral chest FINDINGS: There is bilateral hyperinflation, bullous change including prominent right upper lobe bull a and flattening of the diaphragm, consistent with bullous emphysema. No pulmonary infiltrate or consolidation, pleural effusion or pulmonary vascular congestion or pneumo thorax is detected. Heart size is within normal limits. Prominent central pulmonary arteries with relatively rapid tapering, suggesting pulmonary hypertensio n. Mild thoracic dextroscoliosis. Osteopenia. Old left rib fractures. IMPRESSION: Bullous emphysema, suggestion of pulmonary hypertension No active pulmonary infiltrate is detected Reviewed, dictated and finalized at location A. POINTER CLEANER CAULKER
--- NOTE | ~2024-07-14 | CT_ITS ---
EXAMINATION:CT diagnostic chest wo con DATE: 07/15/2024 09:40 INDICATION: Shortness of breath. Chronic obstructive pulmonary disease exacerbation. TECHNIQUE: Computed tomography (CT) of the chest was performed without intravenous contrast. Automate d exposure control and iterative reconstruction technique were employed. The dose-length product (DLP ) was 405.06 mGy-cm. COMPARISON: Chest CT 11/14/2023 FINDINGS: There is severe emphysema. There is a 2.1 cm nodule with fat and calcifications in right up per lobe, consistent with a hamartoma. There is mild atelectasis bilaterally. There is a chronic 5 mm nodule in left lower lobe, likely benign. There is a chronic 5 mm nodule in right lower lobe, likely benign. There is mucous plugging in the lower lobes. No pleural effusion. There are nodules in the t hyroid measuring up to 11 mm, likely not clinically significant. The heart size is normal. There are coronary artery calcifications. There is a trace pericardial effusion. There is a 1.7 cm cyst in righ t kidney. There is thoracic dextroscoliosis and severe spondylosis. There is mild chronic anterior we dging of multiple vertebral bodies. IMPRESSION: 1. Severe emphysema. Reviewed, dictated and finalized at location A. HOUSE OPERATOR HELPER IMPRESSION: 1. Severe emphysema.
--- NOTE | 2024-07-14 16:16 | ED_ITS ---
HPI - SOB/Dyspnea General Chief Complaint: Shortness of Breath/Dyspnea Stated Complaint: SOB Source: patient and family Mode of arrival: ambulatory Limitations: no limitations History of Present Illness HPI Narrative: this is a 74-year-old male with history of COPD and CHF history of atrial fibrillation presents with 1 day history of shortness of breath with mild cough nonproductive with no fever chills no chest pain no nausea vomiting or abdominal pain. Patient felt out of breath just walking to the bathroom. MD elicited complaint: shortness of breath Pertinent past history: COPD and congestive heart failure Onset (ago): day(s) Related Data Home Medications Medication Instructions Recorded Confirmed finasteride 5 mg tablet 5 mg PO DAILY 01/06/24 07/14/24 fluticasone fur. 100 mcg-umeclid 1 inh inhalation Q24H 02/17/24 07/14/24 62.5 mcg-vilant 25 mcg inhalat.powder (Trelegy Ellipta) pravastatin 20 mg tablet 20 mg PO DAILY 07/14/24 07/14/24 roflumilast 500 mcg tablet 250 mcg PO DAILY 07/14/24 07/14/24 (Daliresp) Allergies Allergy/AdvReac Type Severity Reaction Status Date / Time lisinopril Allergy Unknown Cough Verified 07/14/24 16:15 Sulfa (Sulfonamide Allergy Cough Verified 07/14/24 16:15 Antibiotics) Review of Systems Review of Systems: All systems reviewed & are unremarkable except as noted in HPI and below PMFSH Past Medical History Medical History Chest pain Chronic anticoagulation Chronic kidney disease, stage 3 Chronic obstructive pulmonary disease Community acquired pneumonia, bilateral COPD exacerbation Coronary artery disease Dyslipidemia Elevated d-dimer Former smoker Gastroesophageal reflux disease Heart failure with reduced ejection fraction Echocardiogram in April 2023 showed reduced LV function with an EF of 40 to 45% and abnormal diastolic function. Hypertension Myocardial infarction Evidence of infarct on stress test from September 2018 without reversible ischemia, EF of 37%. Oral cancer Completely excised, no additional treatment required. Osteoporosis Persistent atrial fibrillation Pneumonia Rectal polyp Septic shock Sinusitis Vitamin D deficiency, unspecified Surgical History Surgical History History of bilateral cataract extraction History of colonoscopy with polypectomy History of tonsillectomy History of vasectomy Family History Family History Mother Patient's mother is Family history of malignant neoplasm Social History Social History Social History: Surrogate medical decision maker: Beulah Cross, spouse. Code status: Full code. Smoking packs per day: 1.5 Smoking cigarettes per day: 30.0 Years smoked: 50 Smoking pack-years: 75.00 Smoking status: Former smoker Tobacco type: cigarettes Second hand tobacco smoke exposure: Yes Smoking end date: 10/09/21 Alcohol intake: former Drinks per week: 0 Alcohol use details: Rare alcohol use in moderation. Substance use: never Substance use type: does not use Do You Feel Safe in your Home?: Yes Lack of Transportation: No Lack of Food: Never True Current Housing: I Have Housing Concerned About Future Housing: No Difficulty Paying Gas/Electric Bills: No Difficulty Paying for Meds: No Currently Unemployed: YES Education: High School Diploma/GED Difficulty w/ Childcare or Family Care: No Living arrangements: with family Additional living arrangements comments: Lives with spouse and son in [place]. Occupation/Education: retired Additional occupation/education comments: Retired from [employer] after 24 years. Worked for [employer] thereafter. Spiritual care concerns: No Agree to blood products: Yes Exam Const: General: no acute distress Nutritional Appearance: thin Juanito entation/consciousness: patient oriented x3 Limitations: no limitations HENMT: Head: normal to inspection Eyes: Conjunctivae: conjunctivae normal Pupils: Equal, round and reactive pupils present Neck: Neck: normal visual inspection and no lymphadenopathy Chest: Chest palpation & inspection: normal inspection of the chest Resp: Effort & Inspection: normal respiratory effort Auscultation: diminished lung sounds Cardio: Rate: regular rate Rhythm: abnormal rhythm GI: GI Palp: Yes Soft to palpation : General: Yes bladder normal to palpation Urinary Catheter: Urinary Catheter: patent and draining Back/Spine/Pelvis: Back: no CVA tenderness Skin: General skin exam: normal color Rashes: no rashes Neuro: General: patient oriented x3, moves all extremities and no meningeal signs Extrem: General: normal to inspection, no clubbing, cyanosis or edema and no pedal edema Course Course Emergency Course: Patient with shortness of breath and a history of COPD and CHF did receive a DuoNeb and started on IV line and received 125mg IV Solu-Medrol and 40mg IV Las ix. Reassessment patient symptoms have mildly improved. Patient is currently satting at 97% on room air. Patient has no chest pain. Patient has an elevated white blood cell count up to 15,000, chest x-ray shows no evidence of pneumonia but with COPD will start ceftriaxone along with some azithromycin with some an elevated white count. His troponins and D-dimer negative, BNP is elevated to 1700 patient received a dose of 40mg IV Lasix. Has a history of atrial fibrillation EKG performed shows AFib with a rate 93. Will admit patient under observation. Vital Signs Vital signs: Vital Signs Temperature 36.8 C 07/14/24 16:06 Pulse Rate 108 H 07/14/24 16:06 Respiratory Rate 24 H 07/14/24 16:06 Blood Pressure 146/90 H 07/14/24 16:06 Pulse Oximetry 97 07/14/24 16:06 Oxygen Delivery Room Air 07/14/24 16:06 Temperature 36.8 C 07/14/24 16:06 Pulse Rate 108 H 07/14/24 16:06 Respiratory Rate 24 H 07/14/24 16:06 Blood Pressure 146/90 H 07/14/24 16:06 Pulse Oximetry 97 07/14/24 16:14 Oxygen Delivery Room Air 07/14/24 16:14 Critical Care Time Critical Care Time Critical Care Time: No Discharge Plan Discharge Clinical Impression: A-fib, COPD (chronic obstructive pulmonary disease), CHF (congestive heart failure), Acute upper respiratory infection Patient Disposition: Acute Care Hospital [facility] Condition: Guarded Prognosis Prescriptions: No Action pravastatin 20 mg tablet 20 mg PO DAILY Rx Instructions: TAKE ONE TABLET BY MOUTH DAILY roflumilast [Daliresp] 500 mcg tablet 250 mcg PO DAILY finasteride 5 mg tablet 5 mg PO DAILY Eliquis 5 mg tablet 5 mg PO BID Qty: 180 3RF albuterol sulfate 90 mcg/actuation HFA aerosol inhaler 1 - 2 inh inhalation Q4-6H PRN (Reason: shortness of breath or wheezing) 90 Days Qty: 25.5 2RF ipratropium bromide 0.02 % solution 2.5 ml inhalation Q6H PRN (Reason: shortness of breath or wheezing) Qty: 75 3RF Trelegy Ellipta 100-62.5-25 mcg blister with device 1 inh inhalation Q24H magnesium oxide 400 mg (241.3 mg magnesium) Tablet 400 mg PO DAILY Qty: 30 0RF omeprazole 40 mg capsule,delayed release(DR/EC) 40 mg PO DAILY Qty: 100 1RF tamsulosin 0.4 mg capsule 0.4 mg PO BID Qty: 60 2RF Follow-up/Referrals: UNKNOWN,DOCTOR [Non-Staff] -
--- NOTE | 2024-07-14 16:16 | ECG_ITS ---
Test Date: 2024-07-14 16:27:58 Measurements Intervals [place] Rate: 97 P: 0 TN: 0 QRS: 56 QRSD: 88 T: 67 QT: 331 QTc: 422 Interpretive Statements ATRIAL FIBRILLATION WITH ABERRANT CONDUCTION OR VENTRICULAR PREMATURE COMPLEXES ABNORMAL RHYTHM ECG No previous ECG available for comparison Electronically Signed On 07-16-2024 20:15:41 GLOBE MOUNTER by Scott Carter M.D.
[2024-07-14] MEDS: methylPREDNISolone SOD SUCC 125 MG VIAL IV PUSH (16:26)
[2024-07-14] MEDS: FUROSEMIDE INJ 40 MG/4 ML VIAL IV PUSH (16:27)
[2024-07-14] MEDS: IPRATROPIUM 0.5 MG/ALBUTEROL SULFATE 2.5 MG AMPUL.NEB 3 ML INHALATION ×2 (16:29→18:55)
[2024-07-14] MEDS: MAGNESIUM SULF 2 GM/WATER 50ML 2 GM/50 ML BAG IVPB (16:29)
[2024-07-14 16:43] LABS: Basophils Absolute Auto 0.11 K/mm3 (0.00-0.10); Basophils Percent Auto 0.7 % (0.0-1.0); Eosinophils Absolute Auto 0.12 K/mm3 (0.02-0.50); Eosinophils Percent Auto 0.8 % (1.0-6.0); Hematocrit 42.1 % (37.0-46.0); Hemoglobin 13.4 g/dL (12.4-15.3); Immature Granulocyte Absolute 0.06 K/mm3 (0.00-0.00); Immature Granulocyte Percent A 0.4 % (0.0-0.0); Lymphocytes Percent Auto 9.3 % (18.0-42.0); Mean Corpuscular HGB Conc 31.8 g/dL (32-36); Mean Corpuscular Volume 81.7 fL (78.0-102.0); Mean Platelet Volume 9.6 fl (8.7-11.0); Monocytes Absolute Auto 0.72 K/mm3 (0.10-0.90); Monocytes Percent Auto 4.8 % (2.0-11.0); Neutrophils Absolute Auto 12.66 K/mm3 (1.70-7.20); Platelet Count Result 275 K/mm3 (150-420); Red Blood Count 5.15 M/mm3 (4.70-6.10); Red Cell Distribution Width 15.4 % (11.6-14.4); White Blood Count 15.1 K/mm3 (4.8-10.8)
--- NOTE | 2024-07-14 16:57 | PC.NURSE ---
covid culture sent to lab
[2024-07-14 17:04] LABS: Add Urine Microscopic? NO; Appearance Urine Clear (Clear); Bilirubin Urine Negative (Negative); Blood Urine Negative (Negative); Color Urine Light Yellow (Yellow); Glucose Urine UA Negative (Negative); Ketones Urine Negative (Negative); Leukocyte Esterase Ur Negative LEU/UL (Negative); Nitrate Urine Negative (Negative); Protein Urine Negative (Negative); Specific Grav Ur 1.025 (1.010-1.020); Urobilinogen Urine 0.2 mg/dL (0.2-1.0); pH Urine 5.5 (5.0-8.0)
[2024-07-14 17:05] LABS: D Dimer 0.32 mg/L (0.19-0.50); INR 1.1; Partial Thromboplastin Time 28.2 Sec (23.9-30.70); Prothrombin Time 11.7 Seconds (9.50-12.1)
[2024-07-14 17:06] LABS: Alanine Aminotransferase 14 U/L (16-63); Albumin Level 3.6 g/dL (3.4-5.0); Alkaline Phosphatase 134 U/L (46-116); Anion Gap 12 mmol/L (4-12); Aspartate Amino Transferase 16 U/L (15-37); Bilirubin,Total 0.5 mg/dL (0.00-1.00); Blood Urea Nitrogen 16 mg/dL (7-18); Calcium 9.2 mg/dL (8.5-10.1); Carbon Dioxide 25 mmol/L (21-32); Chloride 103 mmol/L (98-108); Estimated CRCL calculation 48 ml/min; Estimated Glomerular Filt Rate 55; Glucose 79 mg/dL (70-99); Lactic Acid Reflex 2.2 mmol/L (0.4-2.0); Magnesium 1.3 mg/dL (1.8-2.4); NT Pro B Type Natriuretic Pept 1705 pg/mL (0-125); Osmolality Calculated 290 mOsm/kg (285-295); Potassium 3.1 mmol/L (3.5-5.1); Sodium 140 mmol/L (136-145); Total Protein 7.1 g/dL (6.4-8.2); Troponin I 16.1 ng/L (0.00-60.4)
[2024-07-14 17:35] LABS: SARS-CoV-2 RNA PCR Negative (Negative)
[2024-07-14 17:40] LABS: Influenza A QL RT-PCR Negative (Negative); Influenza B QL RT-PCR Negative (Negative); RSV RNA, RT-PCR Negative (Negative)
[2024-07-14] MEDS: POTASSIUM BICARBONATE 25 MEQ TABEF 50 MEQ PO (17:57)
[2024-07-14] MEDS: AZITHROMYCIN 500 MG/NS 250 ML 500 MG/250 ML BAG 250 MG IVPB (18:12)
--- NOTE | 2024-07-14 19:01 | ADMGEN ---
This patient, Chilo Cross, was admitted to 2nd Floor Room 203-2. Patient/family oriented to hospital policies and general routines including ID bracelet, bed and alarms, visiting hours, pain management, procedures, bathroom and other care routines, personal items, smoking policy, room service/diet, and visiting hours. Information on how to activate the Rapid Response Team has been discussed. Patient/Family are encouraged to report perceived risks to care and to ask questions if they do not understand what they are told or what they should do.
[2024-07-14 19:40] LABS: Reflex Lactic Acid Yes or No Add Lactic
[2024-07-14 20:37] LABS: Lactic Acid 2.6 mmol/L (0.4-2.0)
[2024-07-14] MEDS: methylPREDNISolone SOD SUCC 40 MG VIAL IV PUSH (21:39)
[2024-07-14] MEDS: SODIUM CHLORIDE 0.9% IV 250 ML 100 ML IV CONT (21:48)
[2024-07-15] VITALS (15 sets, daily range): BP systolic 100–118; BP diastolic 47–72; PULSE 79–109; RESP 18–20; TEMP 36.1–36.6; O2SAT 94–98
[2024-07-15] MEDS: IPRATROPIUM 0.5 MG/ALBUTEROL SULFATE 2.5 MG AMPUL.NEB 3 ML INHALATION ×5 (00:11→23:45)
[2024-07-15] MEDS: methylPREDNISolone SOD SUCC 40 MG VIAL IV PUSH ×3 (05:45→21:41)
[2024-07-15 06:57] LABS: Basophils Absolute Auto 0.01 K/mm3 (0.00-0.10); Basophils Percent Auto 0.1 % (0.0-1.0); Hematocrit 37.7 % (37.0-46.0); Hemoglobin 12.2 g/dL (12.4-15.3); Immature Granulocyte Absolute 0.08 K/mm3 (0.00-0.00); Immature Granulocyte Percent A 0.5 % (0.0-0.0); Lymphocytes Absolute Auto 0.59 K/mm3 (1.10-4.50); Lymphocytes Percent Auto 3.6 % (18.0-42.0); Mean Corpuscular HGB Conc 32.4 g/dL (32-36); Mean Corpuscular Hemoglobin 25.7 pg (27.0-31.0); Mean Corpuscular Volume 79.4 fL (78.0-102.0); Mean Platelet Volume 9.7 fl (8.7-11.0); Monocytes Absolute Auto 0.06 K/mm3 (0.10-0.90); Monocytes Percent Auto 0.4 % (2.0-11.0); Neutrophils Absolute Auto 15.46 K/mm3 (1.70-7.20); Neutrophils Percent Auto 95.4 % (50.0-70.0); Platelet Count Result 251 K/mm3 (150-420); Red Blood Count 4.75 M/mm3 (4.70-6.10); Red Cell Distribution Width 15.6 % (11.6-14.4); White Blood Count 16.2 K/mm3 (4.8-10.8)
[2024-07-15 07:21] LABS: Alanine Aminotransferase 13 U/L (16-63); Albumin Level 3.3 g/dL (3.4-5.0); Alkaline Phosphatase 116 U/L (46-116); Anion Gap 11 mmol/L (4-12); Aspartate Amino Transferase 13 U/L (15-37); Bilirubin,Total 0.5 mg/dL (0.00-1.00); Blood Urea Nitrogen 18 mg/dL (7-18); Calcium 9.2 mg/dL (8.5-10.1); Carbon Dioxide 25 mmol/L (21-32); Chloride 101 mmol/L (98-108); Estimated CRCL calculation 46 ml/min; Estimated Glomerular Filt Rate 54; Glucose 150 mg/dL (70-99); Magnesium 1.5 mg/dL (1.8-2.4); NT Pro B Type Natriuretic Pept 1554 pg/mL (0-125); Osmolality Calculated 288 mOsm/kg (285-295); Potassium 3.2 mmol/L (3.5-5.1); Sodium 137 mmol/L (136-145); Total Protein 6.6 g/dL (6.4-8.2)
[2024-07-15] MEDS: PANTOPRAZOLE 40 MG TABLET PO (08:46)
[2024-07-15] MEDS: MAGNESIUM OXIDE 400 MG TABLET PO ×2 (08:46→17:18)
[2024-07-15] MEDS: APIXABAN 2.5 MG TABLET 5 MG BY MOUTH ×2 (08:47→17:17)
[2024-07-15] MEDS: FINASTERIDE 5 MG TABLET PO (08:47)
[2024-07-15] MEDS: TAMSULOSIN HCL 0.4 MG CAPSULE PO ×2 (08:47→17:18)
[2024-07-15] MEDS: PRAVASTATIN SODIUM 20 MG TABLET PO (08:47)
--- NOTE | 2024-07-15 09:31 | PC.NURSE ---
down with xray at this time.
--- NOTE | 2024-07-15 10:23 | P.HP_ITS ---
H&P: HPI History of Present Illness Date/Time: 07/15/24 10:23 Chief Complaint: SOB Narrative: Patient is a 74-year-old male who presented to the emergency department with worsening complaints shortness of breath. Patient reports he has a significant history of severe emphysema and previous smoker as well as CKD 3, CAD, WA, atrial fibrillation, CHF, remission of oral cancer, and HLD. patient report s he attempted to use his inhalers and nebulizer treatments however with any exertion he became severely short of breath and unable to recover at rest. Patient was not hypoxic in the emergency department however he had increased work of breathing and use of accessory muscles with difficulty catching his breath even with conversation. labs showed a white count of 15.4, BNP of 15 54 and CXR with bullous emphysema and pulmonary hypertension. patient denied chest pain except with breathing, nausea, vomiting, fever, chills, dizziness, urinary difficulties, diarrhea or constipation. patient was admitted to the medical unit for further evaluation and treatment COPD exacerbation. Review of Systems Review of Systems: All systems reviewed & are unremarkable except as noted in HPI and below PMFSH Past Medical History Medical History (Updated 07/15/24 @ 10:34 by Jenn Laguna APRN) Chest pain Chronic anticoagulation Chronic kidney disease, stage 3 Chronic obstructive pulmonary disease Community acquired pneumonia, bilateral COPD exacerbation Coronary artery disease Dyslipidemia Elevated d-dimer Former smoker Gastroesophageal reflux disease Heart failure with reduced ejection fraction Echocardiogram in April 2023 showed reduced LV function with an EF of 40 to 45% and abnormal diastolic function. Hypertension Myocardial infarction Evidence of infarct on stress test from September 2018 without reversible ischemia, EF of 37%. Oral cancer Completely excised, no additional treatment required. Osteoporosis Persistent atrial fibrillation Pneumonia Rectal polyp Septic shock Sinusitis Vitamin D deficiency, unspecified Surgical History Surgical History History of bilateral cataract extraction History of colonoscopy with polypectomy History of tonsillectomy History of vasectomy Family History Family History Mother Patient's mother is Family history of malignant neoplasm Social History Social History Social History: Surrogate medical decision maker: Beulah Cross, spouse. Code status: Full code. Smoking packs per day: 1.5 Smoking cigarettes per day: 30.0 Years smoked: 50 Smoking pack-years: 75.00 Smoking status: Never smoker Tobacco type: cigarettes Second hand tobacco smoke exposure: Yes Smoking end date: 10/09/21 Alcohol intake: never Drinks per week: 0 Alcohol use details: Rare alcohol use in moderation. Substance use: never Substance use type: does not use Do You Feel Safe in your Home?: Yes Lack of Transportation: No Lack of Food: Never True Current Housing: I Have Housing Concerned About Future Housing: No Difficulty Paying Gas/Electric Bills: No Difficulty Paying for Meds: No Currently Unemployed: No Education: High School Diploma/GED Difficulty w/ Childcare or Family Care: No Living arrangements: with family Additional living arrangements comments: Lives with spouse and son in [place]. Occupation/Education: retired Additional occupation/education comments: Retired from [employer] after 24 years. Worked for [employer] thereafter. Spiritual care concerns: No Agree to blood products: Yes Meds Home Medications and Allergies Home Medications Medication Instructions Recorded Confirmed Type apixaban 5 mg tablet (Eliquis) 5 mg PO BID #180 tabs 09/22/23 07/14/24 Rx magnesium oxide 400 mg (241.3 mg 400 mg PO DAILY #30 tabs 12/27/23 07/14/24 Rx magnesium) tablet ipratropium bromide 0.02 % 2.5 ml inhalation Q6H PRN 12/29/23 07/14/24 Rx solution for inhalation shortness of breath or wheezing #75 mL finasteride 5 mg tablet 5 mg PO DAILY 01/06/24 07/14/24 History fluticasone fur. 100 mcg-umeclid 1 inh inhalation Q24H 02/17/24 07/14/24 History 62.5 mcg-vilant 25 mcg inhalat.powder (Trelegy Ellipta) omeprazole 40 mg capsule,delayed 40 mg PO DAILY #100 caps 03/19/24 07/14/24 Rx release albuterol sulfate 90 mcg/actuation 1 - 2 inh inhalation Q4-6H PRN 06/15/24 Rx aerosol inhaler shortness of breath or wheezing 90 days #25.5 grams tamsulosin 0.4 mg capsule 0.4 mg PO BID #60 caps 07/10/24 07/14/24 Rx pravastatin 20 mg tablet 20 mg PO DAILY 07/14/24 07/14/24 History roflumilast 500 mcg tablet 250 mcg PO DAILY 07/14/24 07/14/24 History (Daliresp) diltiazem HCl 180 mg 180 mg PO DAILY 07/15/24 07/15/24 History capsule,extended release 24 hr Allergies Allergy/AdvReac Type Severity Reaction Status Date / Time lisinopril Allergy Unknown Cough Verified 07/14/24 16:15 Sulfa (Sulfonamide Allergy Cough Verified 07/14/24 16:15 Antibiotics) Vital Signs Vital Signs - 24 hr 07/14/24 16:14 07/14/24 16:06 07/14/24 16:30 Temperature 98.2 F Pulse Rate 108 H 93 Respiratory Rate 24 H 24 H Blood Pressure 146/90 H Pulse Oximetry 97 97 97 Oxygen Delivery Room Air Room Air 07/14/24 16:25 07/14/24 17:00 07/14/24 17:30 Temperature Pulse Rate 104 H 118 H 94 Respiratory Rate 22 H 22 H 20 Blood Pressure 149/75 H 127/83 Pulse Oximetry 99 97 95 Oxygen Delivery Room Air Room Air 07/14/24 16:05 07/14/24 18:00 07/14/24 18:27 Temperature Pulse Rate 105 H 105 H 99 Respiratory Rate 22 H 20 Blood Pressure 101/61 140/78 Pulse Oximetry 96 96 Oxygen Delivery Room Air Room Air 07/14/24 16:30 07/14/24 19:00 07/14/24 20:00 Temperature Pulse Rate 91 99 99 Respiratory Rate 20 20 20 Blood Pressure 119/58 L Pulse Oximetry 98 96 96 Oxygen Delivery Room Air Room Air Room Air 07/14/24 20:00 07/14/24 22:00 07/14/24 18:50 Temperature 97.7 F Pulse Rate 101 H 101 H 101 H Respiratory Rate 20 22 H Blood Pressure 157/72 H Pulse Oximetry 96 96 Oxygen Delivery Room Air 07/14/24 19:05 07/15/24 00:00 07/15/24 00:00 Temperature Pulse Rate 100 86 89 Respiratory Rate 20 20 Blood Pressure Pulse Oximetry 97 96 Oxygen Delivery 07/15/24 00:00 07/15/24 00:15 07/15/24 04:00 Temperature 96.9 F L Pulse Rate 86 86 79 Respiratory Rate 20 20 Blood Pressure 109/61 Pulse Oximetry 97 97 Oxygen Delivery Room Air 07/15/24 05:45 07/15/24 06:06 07/15/24 08:00 Temperature Pulse Rate 79 80 94 Respiratory Rate 20 20 Blood Pressure Pulse Oximetry 96 98 Oxygen Delivery 07/15/24 08:00 Temperature 98 F Pulse Rate 92 Respiratory Rate 20 Blood Pressure 118/72 Pulse Oximetry 95 Oxygen Delivery Room Air Exam Narrative: * GENERAL: Alert and oriented x 3. increased work of breathing difficulty catching his breath during conversation pleasant male * EYES: EOMI. No scleral icterus. PERRLA. * HEENT: Moist mucous membranes. * LUNGS: Clear to auscultation bilaterally. increased work of breathing use of accessory muscles with nonproductive cough noticeable shortness of breath even with conversations * CARDIOVASCULAR: Regular rate and rhythm. No murmur. No JVD. S1-S2 * ABDOMEN: Soft, non tenderness and non-distended. No palpable masses. * EXTREMITIES: No edema. Non-tender * SKIN: No rashes or lesions. Skin warm, dry. * NEUROLOGIC: No focal neurological deficits. CN II-XII grossly intact * PSYCHIATRIC: Appropriate mood and affect. Good judgement and insight. No visual or auditory hallucinations. No suicidal or homicidal ideation. H&P: Results Labs Labs: Short CBC 07/14/24 07/15/24 Range/Units 16:27 06:25 WBC 15.1 H 16.2 H (4.8-10.8) K/mm3 Hgb 13.4 12.2 L (12.4-15.3) g/dL Hct 42.1 37.7 (37.0-46.0) % Plt Count 275 251 (150-420) K/mm3 BMP 07/14/24 07/15/24 16:27 06:25 Sodium 140 137 Potassium 3.1 L 3.2 L Chloride 103 101 Carbon Dioxide 25 25 BUN 16 18 Creatinine 1.29 1.30 Glucose 79 150 H Calcium 9.2 9.2 Cardiac Enzymes 07/14/24 Range/Units 16:27 Troponin I 16.1 (0.00-60.4) ng/L Liver Function 07/14/24 07/15/24 Range/Units 16:27 06:25 Total Bilirubin 0.5 0.5 (0.00-1.00) mg/dL AST 16 13 L (15-37) U/L ALT 14 L 13 L (16-63) U/L Alkaline Phosphatase 134 H 116 (46-116) U/L Albumin 3.6 3.3 L (3.4-5.0) g/dL Urine 07/14/24 Range/Units 16:27 Urine Color Light yellow (Yellow) Urine Appearance Clear (Clear) Urine pH 5.5 (5.0-8.0) Ur Specific [place] 1.025 H (1.010-1.020) Urine Protein Negative (Negative) Urine Glucose (UA) Negative (Negative) Assessment and Plan Assessment and plan (1) COPD exacerbation: Code(s): J44.1 - Chronic obstructive pulmonary disease with (acute) exacerbation Status: Acute Assessment and Plan: * Bronchodilators. * added Pulmicort * Chest x-ray Severe emphysema/ pulmonary hypertension * Chest CT pending * incentive spirometry while awake. * steroids initiated 40 IVP TID * add mucolytic * Claritin at night patient reported post nasal drip * azithromycin 500 PO daily/ Rocephin IV * supplemental oxygen therapy to maintain oxygen 92%/ On room air at 97% but noticeable work of breathing and shortness of breaths * Pulmonary rehab if indicated. has had previously follows with pulmonology outpatient * Disease management following GOLD guidelines. * Repeat hospitalization risk evaluation per [facility] 25/40 * Evaluation from home O2 if saturation less than 88% on room air. * Former smoker * Follow-up with occ therapy asst as an outpatient * PFT 01/12/24 - severe obstructive ventilatory impairment without response to bronchodilator, normal lung volumes, and a moderate diffusion impairment. This pattern is consistent with emphysema. Compared to a prior study 02/20/2020, there has been progression of the obstructive process and progression of the diffusion impairment. * educated on tripoding (2) Heart failure with reduced ejection fraction: Code(s): I50.20 - Unspecified systolic (congestive) heart failure Status: Acute Assessment and Plan: * pBNP >1700 POA * cardiology consulted * IV Lasix b.i.d. * monitor renal function during diuresis * previous echocardiogram results: Echo 04/25/23 - EF 40-45%, no pulmHTN. * EKG AFIB * chest x-ray reviewed showing severe emphysema * Daily weight. * resume Antiplatelet therapy, statin therapy (3) CKD (chronic kidney disease) stage 3, GFR 30-59 ml/min: Code(s): N18.3 - Chronic kidney disease, stage 3 (moderate) Status: Acute Assessment and Plan: * Stable Cr 1.3 will monitor during diuresis * Avoid nephrotoxic drugs. * Monitor antihypertensive drug therapy. * Avoid NSAIDs. * Routine CMP monitoring GFR. * Monitor electrolytes especially potassium. * Antibiotic doses depending on creatinine clearance. * Pharmacy does medications. (4) Atrial fibrillation and flutter: Code(s): I48.91 - Unspecified atrial fibrillation; I48.92 - Unspecified atrial flutter Status: Acute Assessment and Plan: * Rate controlled * previous cardioversions * resume Cardizem * resume patient's Eliquis * cardiac monitoring (5) Hypertension: Code(s): I10 - Essential (primary) hypertension Status: Acute Assessment and Plan: * Reviewed today stable * On Cardizem * monitor per unit protocol (6) CAD (coronary artery disease): Qualifiers: Coronary Disease-Associated Artery/Lesion type: [place] artery [place] vs. transplanted heart: [place] heart Associated angina: without angina Qualified Code(s): I25.10 - Atherosclerotic heart disease of [place] coronary artery without angina pectoris Code(s): I25.10 - Atherosclerotic heart disease of [place] coronary artery without angina pectoris Status: Acute Assessment and Plan: * Previous [place] with stent * resume Eliquis (7) Hypomagnesemia: Code(s): E83.42 - Hypomagnesemia Status: Acute Assessment and Plan: * Mag 1.5 POA * 2 gram IVPB * resumed oral mag oxide increased to b.i.d. * daily mag * cardiac monitoring * keep Mag > 2.0 (8) BPH (benign prostatic hyperplasia): Qualifiers: Lower urinary tract symptom presence: unspecified whether lower urinary tract symptoms present Qualified Code(s): N40.0 - Benign prostatic hyperplasia without lower urinary tract symptoms Code(s): N40.0 - Benign prostatic hyperplasia without lower urinary tract symptoms Status: Acute Assessment and Plan: * resume Proscar and Flomax * monitor for urinary retention * bladder scan if no urinary output q.6 hours Plan Code status: Full code per patient DVT prophylaxis: Eliquis Stress ulcer prophylaxis: Protonix 40 daily PT/OT notes: patient ambulatory/ patient has PT/OT outpatient Disposition: patient was admitted to the medical unit for further treatment of COPD exacerbation will continue with steroids and DuoNebs added Pulmicort and CT chest for further evaluation pending patient with moderate to severe shortness of breath and noticeable increased work of breathing. Patient is ambulatory plan will be to discharge home when medically stable will need follow-up with primary and occ therapy asst outpatient recommend follow-up with Pulmonary rehab. Quality VTE Prophylaxis VTE prophylaxis: pharmacologic ordered -Patient's previous records reviewed on admission -ER notes reviewed in detail on admission -discussed all findings and current treatment plan with patient/Family/POA -Consultations reviewed for recommendations -Patient's disposition for safe discharge discussed with rn case manager Dictation performed by [employer] direct speech recognition software, therefore construction code administrator variants and typographical errors may occur. Hospitalist MIPS Advance Care Plan I have confirmed that the patient's Advanced Care Plan is present, code status is documented, or surrogate decision maker is listed in patient medical record.: Yes Medication Reconciliation I have utilized all available resources to obtain, update and review the patients current medications (includes all prescriptions, OTC, herbals, cannabis, and nutritional supplements).: Yes The patient is not eligible for med reconciliation; the patient is in a emergent medical situation where delaying treatment would jeopardize the patients health.: No
[2024-07-15] MEDS: AZITHROMYCIN 250 MG TABLET 500 MG PO (10:24)
[2024-07-15] MEDS: FLUTICASONE/UMECLIDIN/VILANTER 100-62.5-25 MCG ELLIPTA 1 PUFF INHALATION (10:24)
[2024-07-15] MEDS: guaiFENesin 12 HR 600 MG TABCR 1200 MG PO ×2 (10:24→21:41)
[2024-07-15] MEDS: dilTIAZem HCL CD 180 MG CAP.24HR PO (11:03)
[2024-07-15] MEDS: POTASSIUM CHLORIDE 20 MEQ ER TABLET 40 MEQ PO (11:04)
[2024-07-15] MEDS: MAGNESIUM SULF 2 GM/WATER 50ML 2 GM/50 ML BAG IVPB (11:05)
[2024-07-15] MEDS: FUROSEMIDE INJ 20 MG/2 ML VIAL IV PUSH (17:19)
[2024-07-15] MEDS: BUDESONIDE RESPULE NEB 0.5 MG/2 ML AMP INHALATION (18:19)
--- NOTE | 2024-07-15 19:36 | PC.NURSE ---
Patient was made medical inpatient on 07/15/2024 at 1549. Admission was notified, and chart was changed to inpatient medical with telemetry.
[2024-07-15] MEDS: LORATADINE 10 MG TABLET PO (21:41)
[2024-07-16] VITALS (15 sets, daily range): BP systolic 99–130; BP diastolic 54–65; PULSE 70–115; RESP 14–20; TEMP 36.2–36.8; O2SAT 95–99
[2024-07-16] MEDS: methylPREDNISolone SOD SUCC 40 MG VIAL IV PUSH ×2 (05:19→17:46)
[2024-07-16 05:24] LABS: Hematocrit 36.6 % (37.0-46.0); Hemoglobin 11.9 g/dL (12.4-15.3); Mean Corpuscular HGB Conc 32.5 g/dL (32-36); Mean Corpuscular Hemoglobin 26.2 pg (27.0-31.0); Mean Corpuscular Volume 80.4 fL (78.0-102.0); Mean Platelet Volume 9.6 fl (8.7-11.0); Platelet Count Result 257 K/mm3 (150-420); Red Blood Count 4.55 M/mm3 (4.70-6.10); Red Cell Distribution Width 15.8 % (11.6-14.4)
[2024-07-16 05:26] LABS: White Blood Count 25.9 K/mm3 (4.8-10.8)
[2024-07-16] MEDS: BUDESONIDE RESPULE NEB 0.5 MG/2 ML AMP INHALATION ×2 (05:34→16:49)
[2024-07-16] MEDS: IPRATROPIUM 0.5 MG/ALBUTEROL SULFATE 2.5 MG AMPUL.NEB 3 ML INHALATION ×4 (05:34→23:06)
[2024-07-16 05:46] LABS: Alanine Aminotransferase 11 U/L (16-63); Alkaline Phosphatase 99 U/L (46-116); Anion Gap 9 mmol/L (4-12); Aspartate Amino Transferase 14 U/L (15-37); Bilirubin,Total 0.3 mg/dL (0.00-1.00); Blood Urea Nitrogen 27 mg/dL (7-18); Calcium 8.9 mg/dL (8.5-10.1); Carbon Dioxide 25 mmol/L (21-32); Chloride 102 mmol/L (98-108); Estimated CRCL calculation 43 ml/min; Estimated Glomerular Filt Rate 50; Glucose 186 mg/dL (70-99); Magnesium 1.9 mg/dL (1.8-2.4); Osmolality Calculated 292 mOsm/kg (285-295); Potassium 4.1 mmol/L (3.5-5.1); Sodium 136 mmol/L (136-145)
--- NOTE | 2024-07-16 06:08 | PC.NURSE ---
Patient's WBC was within the critical range (25.9) and results were reported to the RN PEDIATRIC ICU now on duty, within 35 minutes. No new orders were given, as patient currently has antibiotics scheduled (500 mg Azithromycin PO daily, Rocephin 1G in 50 mL NaCl daily) and results from blood culture pending. Patient is scheduled to take Trelegy inhaler, duoneb Ipratropium/Albuterol sulfate 3 mL inhalation treatment Q6; 40 mg of Solu-Medrol IV push Q8; Budesonide Respule nebulizer all of which may be impacting his WBC. Current RN PEDIATRIC ICU requested that next RN PEDIATRIC ICU also be notified. That will be done when the next RN PEDIATRIC ICU comes on duty at 0700.
--- NOTE | 2024-07-16 07:11 | PM.IMPN ---
Progress Note: A&P Assessment and Plan (1) COPD exacerbation: Code(s): J44.1 - Chronic obstructive pulmonary disease with (acute) exacerbation Status: Acute Assessment and Plan: Steroid management decrease steroids Initiated 2l of oxygen for comfort, despite normal saturation levels mucus clearing: Ordered CPT percussion vest to aid in reducing mucus plugging Infection management: Sputum culture ordered for diagnostic clarity IV antibiotics : Continued as patient would benefit from IV administration (2) CHF (congestive heart failure): Qualifiers: Heart failure chronicity: acute on chronic Heart failure type: unspecified Qualified Code(s): I50.9 - Heart failure, unspecified Code(s): I50.9 - Heart failure, unspecified Status: Acute Plan Code status: Full code per patient DVT prophylaxis: Eliquis Stress ulcer prophylaxis: Protonix 40 daily PT/OT notes: patient ambulatory/ patient has PT/OT outpatient Disposition: patient was admitted to the medical unit for further treatment of COPD exacerbation will continue with steroids and DuoNebs added Pulmicort and CT chest for further evaluation pending patient with moderate to severe shortness of breath and noticeable increased work of breathing. Patient is ambulatory plan will be to discharge home when medically stable will need follow-up with primary and marketing analytics manager outpatient recommend follow-up with Pulmonary rehab. Subjective Date/time seen: 07/16/24 07:11 Interval history: This is a 74 year old male with severe emphysema confirmed by CT scan. Patient reports shortness of breath despite oxygen saturation being within normal limits . Shakiness noted , likely related to steroid use. Coughing noted with very little sputum noted . sputum that is coughed up is dark yellowish brown. Increased WBC patient is looking better WBC more than likely related to steroid use in which we are deescalating. Exam Narrative: GENERAL: Alert and oriented x 3. increased work of breathing difficulty catching his breath during conversation pleasant male EYES: EOMI. No scleral icterus. PERRLA. HEENT: Moist mucous membranes. LUNGS: Clear to auscultation bilaterally. increased work of breathing use of accessory muscles with nonproductive cough noticeable shortness of breath even with conversations CARDIOVASCULAR: Regular rate and rhythm. No murmur. No JVD. S1-S2 ABDOMEN: Soft, non tenderness and non-distended. No palpable masses. EXTREMITIES: No edema. Non-tender SKIN: No rashes or lesions. Skin warm, dry. NEUROLOGIC: No focal neurological deficits. CN II-XII grossly intact PSYCHIATRIC: Appropriate mood and affect. Good judgement and insight. No visual or auditory hallucinations. No suicidal or homicidal ideation. Remains the same from yesterday Objective Data Vital Signs Vital Signs: Vital Signs - 24 hr 07/15/24 08:00 07/15/24 08:00 07/15/24 13:00 Temperature 98 F Pulse Rate 94 92 96 Respiratory Rate 20 20 Blood Pressure 118/72 Pulse Oximetry 95 94 Oxygen Delivery Room Air 07/15/24 12:00 07/15/24 12:30 07/15/24 13:18 Temperature 97 F L Pulse Rate 98 98 109 H Respiratory Rate 20 20 Blood Pressure 100/56 L Pulse Oximetry 96 95 Oxygen Delivery Room Air 07/15/24 16:00 07/15/24 16:00 07/15/24 18:21 Temperature 97.4 F L Pulse Rate 84 84 86 Respiratory Rate 18 18 Blood Pressure 106/47 L Pulse Oximetry 96 96 Oxygen Delivery Room Air 07/15/24 18:46 07/15/24 20:00 07/15/24 20:00 Temperature Pulse Rate 102 H 94 94 Respiratory Rate 18 18 Blood Pressure Pulse Oximetry 97 96 Oxygen Delivery Room Air 07/15/24 20:00 07/15/24 23:43 07/16/24 00:00 Temperature 97.4 F L Pulse Rate 94 94 94 Respiratory Rate 18 18 Blood Pressure 113/51 L Pulse Oximetry 96 96 Oxygen Delivery Room Air 07/16/24 00:00 07/16/24 00:00 07/16/24 04:00 Temperature 97.6 F Pulse Rate 94 94 115 H Respiratory Rate 18 18 Blood Pressure 123/54 L Pulse Oximetry 98 98 Oxygen Delivery Room Air 07/16/24 04:00 07/16/24 05:35 07/16/24 05:50 Temperature 97.2 F L Pulse Rate 113 H 90 98 Respiratory Rate 20 20 18 Blood Pressure 113/63 Pulse Oximetry 95 98 99 Oxygen Delivery Room Air Intake/Output Intake/Output: Intake & Output 07/13/24 07/14/24 07/15/24 07/16/24 23:59 23:59 23:59 23:59 Intake Total 350 3230 1510 Output Total 2050 1700 Balance 350 1180 -190 Meds/Results Medications: Active Medications Generic Name Dose Route Start Last Admin Trade Name Emilianoq PRN Reason Stop Dose Admin Acetaminophen 650 mg 07/14/24 17:46 Acetaminophen 325 Mg Tablet PO Q4H PRN Mild Pain (1-3) or Fever Albuterol/Ipratropium 3 ml 07/14/24 18:30 07/16/24 05:34 Ipratropium 0.5 Mg/Albuterol Sulfate 2.5 Mg Ampul.Neb 3 Ml INHALATION 3 ml Q6HRT AMEE Administration Apixaban 5 mg 07/15/24 09:00 07/15/24 17:17 Apixaban 2.5 Mg Tablet BY MOUTH 5 mg BID AMEE Administration Azithromycin 500 mg 07/15/24 10:00 07/15/24 10:24 Azithromycin 250 Mg Tablet PO 500 mg DAILY AMEE Administration Budesonide 0.5 mg 07/15/24 18:30 07/16/24 05:34 Budesonide Respule Neb 0.5 Mg/2 Ml Amp INHALATION 0.5 mg Q12HRT AMEE Administration Diltiazem HCl 180 mg 07/15/24 10:45 07/15/24 11:03 Diltiazem Hcl Cd 180 Mg Cap.24hr PO 180 mg DAILY AMEE Administration Finasteride 5 mg 07/15/24 09:00 07/15/24 08:47 Finasteride 5 Mg Tablet PO 5 mg DAILY AMEE Administration Fluticasone/Umeclidinium/Vilanterol 1 puff 07/15/24 09:00 07/15/24 10:24 Fluticasone/Umeclidin/Vilanter 100-62.5-25 Mcg Ellipta INHALATION 1 puff DAILYRT AMEE Administration Furosemide 20 mg 07/15/24 17:00 07/15/24 17:19 Furosemide Inj 20 Mg/2 Ml Vial IV PUSH 20 mg BID AMEE Administration Guaifenesin 1,200 mg 07/15/24 10:00 07/15/24 21:41 Guaifenesin 12 Hr 600 Mg Tabcr PO 1,200 mg Q12HR AMEE Administration Ceftriaxone Sodium 1 gm in 50 mls @ 100 mls/hr 07/15/24 10:00 07/15/24 11:00 Rocephin 1 Gm/Ns 50 Ml IVPB Infused DAILY AMEE Infusion Loratadine 10 mg 07/15/24 21:00 07/15/24 21:41 Loratadine 10 Mg Tablet PO 10 mg QHS AMEE Administration Magnesium Oxide 400 mg 07/15/24 17:00 07/15/24 17:18 Magnesium Oxide 400 Mg Tablet PO 400 mg BID [facility] Administration Methylprednisolone Sodium Succinate 40 mg 07/16/24 07:10 Methylprednisolone Sod Succ 40 Mg Vial IV PUSH Q12H [facility] Pantoprazole Sodium 40 mg 07/15/24 09:00 07/15/24 08:46 Pantoprazole 40 Mg Tablet PO 40 mg QAM [facility] Administration Potassium Chloride 40 meq 07/15/24 10:45 07/15/24 11:04 Potassium Chloride 20 Meq Er Tablet PO 40 meq DAILY@0800 [facility] Administration Pravastatin Sodium 20 mg 07/15/24 09:00 07/15/24 08:47 Pravastatin Sodium 20 Mg Tablet PO 20 mg DAILY [facility] Administration Roflumilast 250 mcg 07/15/24 09:00 07/15/24 11:51 Roflumilast 500 Mcg Tablet PO Not Given DAILY [facility] Tamsulosin HCl 0.4 mg 07/15/24 09:00 07/15/24 17:18 Tamsulosin Hcl 0.4 Mg Capsule PO 0.4 mg BID AMEE Administration Radiology Results: ITS Impressions Chest X-Ray 07/14/24 16:39 IMPRESSION: Bullous emphysema, suggestion of pulmonary hypertension No active pulmonary infiltrate is detected Chest CT 07/15/24 11:06 IMPRESSION: 1. Severe emphysema. Labs Labs: Laboratory Results - last 24 hr 07/15/24 07/16/24 06:25 05:18 WBC 25.9 H* RBC 4.55 L Hgb 11.9 L Hct 36.6 L MCV 80.4 MCH 26.2 L MCHC 32.5 RDW 15.8 H Plt Count 257 MPV 9.6 Sodium 137 136 Potassium 3.2 L 4.1 Chloride 101 102 Carbon Dioxide 25 25 Anion Gap 11 9 BUN 18 27 H Creatinine 1.30 1.40 H Estim Creat Clear Calc 46 43 Estimated GFR 54 L 50 L Glucose 150 H 186 H Calculated Osmolality 288 292 Calcium 9.2 8.9 Magnesium 1.5 L 1.9 Total Bilirubin 0.5 0.3 AST 13 L 14 L ALT 13 L 11 L Alkaline Phosphatase 116 99 NT-Pro-B Natriuret Pep 1554 H Total Protein 6.6 6.0 L Albumin 3.3 L 3.0 L TSH 0.20 L
[2024-07-16] MEDS: POTASSIUM CHLORIDE 20 MEQ ER TABLET 40 MEQ PO (08:35)
[2024-07-16] MEDS: FLUTICASONE/UMECLIDIN/VILANTER 100-62.5-25 MCG ELLIPTA 1 PUFF INHALATION (09:09)
[2024-07-16] MEDS: FUROSEMIDE INJ 20 MG/2 ML VIAL IV PUSH ×2 (09:10→17:46)
[2024-07-16] MEDS: guaiFENesin 12 HR 600 MG TABCR 1200 MG PO ×2 (09:11→20:02)
[2024-07-16] MEDS: FINASTERIDE 5 MG TABLET PO (09:12)
[2024-07-16] MEDS: dilTIAZem HCL CD 180 MG CAP.24HR PO (09:12)
[2024-07-16] MEDS: AZITHROMYCIN 250 MG TABLET 500 MG PO (09:12)
[2024-07-16] MEDS: APIXABAN 2.5 MG TABLET 5 MG BY MOUTH ×2 (09:13→17:47)
[2024-07-16] MEDS: PANTOPRAZOLE 40 MG TABLET PO (09:13)
[2024-07-16] MEDS: PRAVASTATIN SODIUM 20 MG TABLET PO (09:14)
[2024-07-16] MEDS: TAMSULOSIN HCL 0.4 MG CAPSULE PO ×2 (09:14→17:47)
[2024-07-16] MEDS: MAGNESIUM OXIDE 400 MG TABLET PO ×2 (09:15→17:47)
--- NOTE | 2024-07-16 11:15 | PC.NURSE ---
placed sputum culture related to patient unable to obtain the 1st specimen.
[2024-07-16 12:01] LABS: MRSA (PCR) NOT DETECTED (NOT DETECTE)
[2024-07-16] MEDS: ROFLUMILAST 250 MCG PO (13:20)
[2024-07-16] MEDS: [UNRECOGNIZED DRUG - OTHER] PO (13:20)
--- NOTE | 2024-07-16 14:29 | PHAR ---
VERIFIED PT.'S HOME MEDICATION: ROFLUMILAST[DALIRESP) 500MCG TABLET TAKE 1 TABLET (500MCG) BY MOUTH DAILY.
[2024-07-16] MEDS: LORATADINE 10 MG TABLET PO (20:02)
[2024-07-17] VITALS (14 sets, daily range): BP systolic 115–153; BP diastolic 52–74; PULSE 67–100; RESP 14–20; TEMP 36.1–36.8; O2SAT 92–99
--- NOTE | 2024-07-17 07:14 | PC.NURSE ---
Solu-medrol 40mg given IVP by short story writerTalon and Pulmicort Nebulizer administered by RT Rima. Documented on paper MAR d/t downtime.
[2024-07-17 08:03] LABS: Hematocrit 37.3 % (37.0-46.0); Hemoglobin 12.1 g/dL (12.4-15.3); Mean Corpuscular HGB Conc 32.4 g/dL (32-36); Mean Corpuscular Volume 80.2 fL (78.0-102.0); Mean Platelet Volume 9.5 fl (8.7-11.0); Platelet Count Result 270 K/mm3 (150-420); Red Blood Count 4.65 M/mm3 (4.70-6.10); Red Cell Distribution Width 15.9 % (11.6-14.4)
[2024-07-17 08:06] LABS: White Blood Count 21.7 K/mm3 (4.8-10.8)
[2024-07-17] MEDS: POTASSIUM CHLORIDE 20 MEQ ER TABLET 40 MEQ PO (08:10)
[2024-07-17 08:31] LABS: Alanine Aminotransferase 18 U/L (16-63); Albumin Level 3.2 g/dL (3.4-5.0); Alkaline Phosphatase 101 U/L (46-116); Anion Gap 8 mmol/L (4-12); Aspartate Amino Transferase 20 U/L (15-37); Bilirubin,Total 0.4 mg/dL (0.00-1.00); Blood Urea Nitrogen 32 mg/dL (7-18); Calcium 8.9 mg/dL (8.5-10.1); Carbon Dioxide 27 mmol/L (21-32); Chloride 100 mmol/L (98-108); Estimated CRCL calculation 45 ml/min; Estimated Glomerular Filt Rate 52; Glucose 122 mg/dL (70-99); Osmolality Calculated 287 mOsm/kg (285-295); Potassium 4.4 mmol/L (3.5-5.1); Sodium 135 mmol/L (136-145); Total Protein 6.2 g/dL (6.4-8.2)
[2024-07-17] MEDS: FUROSEMIDE INJ 20 MG/2 ML VIAL IV PUSH ×2 (09:02→17:44)
[2024-07-17] MEDS: ROFLUMILAST 500 MCG PO (09:02)
[2024-07-17] MEDS: [UNRECOGNIZED DRUG - OTHER] PO (09:02)
[2024-07-17] MEDS: PANTOPRAZOLE 40 MG TABLET PO (09:03)
[2024-07-17] MEDS: PRAVASTATIN SODIUM 20 MG TABLET PO (09:03)
[2024-07-17] MEDS: FLUTICASONE/UMECLIDIN/VILANTER 100-62.5-25 MCG ELLIPTA 1 PUFF INHALATION (09:03)
[2024-07-17] MEDS: MAGNESIUM OXIDE 400 MG TABLET PO ×2 (09:03→17:45)
[2024-07-17] MEDS: FINASTERIDE 5 MG TABLET PO (09:04)
[2024-07-17] MEDS: TAMSULOSIN HCL 0.4 MG CAPSULE PO ×2 (09:04→17:45)
[2024-07-17] MEDS: dilTIAZem HCL CD 180 MG CAP.24HR PO (09:04)
[2024-07-17] MEDS: APIXABAN 2.5 MG TABLET 5 MG BY MOUTH ×2 (09:05→17:44)
[2024-07-17] MEDS: guaiFENesin 12 HR 600 MG TABCR 1200 MG PO ×2 (09:05→20:31)
[2024-07-17] MEDS: AZITHROMYCIN 250 MG TABLET 500 MG PO (09:06)
--- NOTE | 2024-07-17 09:27 | P.PNIM_ITS ---
Progress Note: A&P Assessment and Plan (1) COPD exacerbation: Code(s): J44.1 - Chronic obstructive pulmonary disease with (acute) exacerbation Status: Acute Assessment and Plan: * Bronchodilators. * added Pulmicort * Chest x-ray Severe emphysema/ pulmonary hypertension * Chest CT pending * incentive spirometry while awake. * steroids initiated 40 IVP TID * add mucolytic * Claritin at night patient reported post nasal drip * azithromycin 500 PO daily/ Rocephin IV * supplemental oxygen therapy to maintain oxygen 92%/ On room air at 97% but noticeable work of breathing and shortness of breaths * Pulmonary rehab if indicated. has had previously follows with pulmonology outpatient * Disease management following GOLD guidelines. * Repeat hospitalization risk evaluation per [facility] /40 * Evaluation from home O2 if saturation less than 88% on room air. * Former smoker * Follow-up with farm loan inspector as an outpatient * PFT 01/12/24 - severe obstructive ventilatory impairment without response to bronchodilator, normal lung volumes, and a moderate diffusion impairment. This pattern is consistent with emphysema. Compared to a prior study 02/20/2020, there has been progression of the obstructive process and progression of the diffusion impairment. * educated on [employer] 07/17/2024 * Switched to levalbuterol due to episodes of AFIB with rates in low 100's * Of note patient is under consultation at [facility] pulmonology for bronchoscopic lung volume reduction BLVR/EBV (2) Leukocytosis: Code(s): D72.829 - Elevated white blood cell count, unspecified Status: Acute Assessment and Plan: * WBC bumped to 25 trending down * appears reactive to high steroids and likely inflammatory response from severe emphysema does not appear to be infectious response however will still treat for potential underlying bacterial pneumonia given his current respiratory status and leukocytosis * CT chest showing severe emphysema no infiltrate * currently on azithromycin and Rocephin empirically * IV steroids transitioned to p.o. 40 daily (3) Heart failure with reduced ejection fraction: Code(s): I50.20 - Unspecified systolic (congestive) heart failure Status: Acute Assessment and Plan: * pBNP >1700 POA * cardiology consulted * IV Lasix b.i.d. * monitor renal function during diuresis * previous echocardiogram results: Echo 04/25/23 - EF 40-45%, no pulmHTN. * EKG AFIB * chest x-ray reviewed showing severe emphysema * Daily weight. * resume Antiplatelet therapy, statin therapy 07/17/2024: * one more day IV lasix then transition back to his PO home dose (4) CKD (chronic kidney disease) stage 3, GFR 30-59 ml/min: Code(s): N18.3 - Chronic kidney disease, stage 3 (moderate) Status: Acute Assessment and Plan: * Stable Cr 1.3 will monitor during diuresis * Avoid nephrotoxic drugs. * Monitor antihypertensive drug therapy. * Avoid NSAIDs. * Routine CMP monitoring GFR. * Monitor electrolytes especially potassium. * Antibiotic doses depending on creatinine clearance. * Pharmacy does medications. (5) Atrial fibrillation and flutter: Code(s): I48.91 - Unspecified atrial fibrillation; I48.92 - Unspecified atrial flutter Status: Acute Assessment and Plan: * Rate controlled * previous cardioversions * resume Cardizem * resume patient's Eliquis * cardiac monitoring 07/17/2024: * Rates still in the low 100's * increased Cardizem to 240 mg daily * changed his duo nebs to Levalbuterol * continue cardiac monitoring at this time (6) Hypertension: Code(s): I10 - Essential (primary) hypertension Status: Acute Assessment and Plan: * Reviewed today stable * On Cardizem * monitor per unit protocol 07/17/2024 * still mildly hypertensive with systolics in the mid 140s * just increased his Cardizem to 240 mg (7) CAD (coronary artery disease): Qualifiers: Coronary Disease-Associated Artery/Lesion type: [place] artery [place] vs. transplanted heart: [place] heart Associated angina: without angina Qualified Code(s): I25.10 - Atherosclerotic heart disease of [place] coronary artery without angina pectoris Code(s): I25.10 - Atherosclerotic heart disease of [place] coronary artery without angina pectoris Status: Acute Assessment and Plan: * Previous OR with stent * resume Eliquis (8) Hypomagnesemia: Code(s): E83.42 - Hypomagnesemia Status: Acute Assessment and Plan: * Mag 1.5 POA * 2 gram IVPB * resumed oral mag oxide increased to b.i.d. * daily mag * cardiac monitoring * keep Mag > 2.0 RESOLVED (9) BPH (benign prostatic hyperplasia): Qualifiers: Lower urinary tract symptom presence: unspecified whether lower urinary tract symptoms present Qualified Code(s): N40.0 - Benign prostatic hyperplasia without lower urinary tract symptoms Code(s): N40.0 - Benign prostatic hyperplasia without lower urinary tract symptoms Status: Acute Assessment and Plan: * resume Proscar and Flomax * monitor for urinary retention * bladder scan if no urinary output q.6 hours Plan Code status: Full code per patient DVT prophylaxis: Eliquis Stress ulcer prophylaxis: Protonix 40 daily PT/OT notes: patient ambulatory/ patient has PT/OT outpatient Disposition: patient was admitted to the medical unit for further treatment of COPD exacerbation will continue with steroids and DuoNebs added Pulmicort and CT chest for further evaluation pending patient with moderate to severe shortness of breath and noticeable increased work of breathing. Patient is ambulatory plan will be to discharge home when medically stable will need follow-up with primary and farm loan inspector outpatient at [facility]. Time Spent With Patient Time with patient: 15 - 25 minutes Subjective Date/time seen: 07/17/24 09:27 Interval history: Patient is a 74-year-old male who was admitted for COPD exacerbation and possible underlying pneumonia, patient remains on room air however increased work of breathing and difficulty catching his breath with any type of exertion or even with simple conversation. 07/17/2024: patient still with severe work of breathing even with simple conversation states worsens with ambulation to the restroom. Patient's oxygen saturation stable on room air CT scan showed severe emphysema. Patient denied any chest pain but did report some neck pain denied any dizziness, nausea, vomiting, fever chills, WBC trending down. Review of Systems Review of Systems: All systems reviewed & are unremarkable except as noted in HPI and below Exam Narrative: * GENERAL: Alert and oriented x 3. increased work of breathing difficulty catching his breath during conversation pleasant male * EYES: EOMI. No scleral icterus. PERRLA. * HEENT: Moist mucous membranes. * LUNGS: Clear to auscultation bilaterally. increased work of breathing use of accessory muscles with nonproductive cough noticeable shortness of breath even with conversations * CARDIOVASCULAR: Regular rate and rhythm. No murmur. No JVD. S1-S2 * ABDOMEN: Soft, non tenderness and non-distended. No palpable masses. * EXTREMITIES: No edema. Non-tender * SKIN: No rashes or lesions. Skin warm, dry. * NEUROLOGIC: No focal neurological deficits. CN II-XII grossly intact * PSYCHIATRIC: Appropriate mood and affect. Good judgement and insight. No visual or auditory hallucinations. No suicidal or homicidal ideation. * * Remains the same from yesterday Objective Data Vital Signs Vital Signs: Vital Signs - 24 hr 07/16/24 12:00 07/16/24 12:00 07/16/24 12:55 Temperature 98.3 F Pulse Rate 102 H 94 79 Respiratory Rate 14 20 Blood Pressure 110/65 Pulse Oximetry 99 97 Oxygen Delivery Nasal Cannula Oxygen Flow Rate 2 07/16/24 13:09 07/16/24 16:35 07/16/24 16:35 Temperature 97.2 F L Pulse Rate 83 75 70 Respiratory Rate 20 16 Blood Pressure 130/57 L Pulse Oximetry 98 97 Oxygen Delivery Nasal Cannula Oxygen Flow Rate 2 07/16/24 16:50 07/16/24 17:09 07/16/24 20:00 Temperature Pulse Rate 80 83 87 Respiratory Rate 20 20 20 Blood Pressure Pulse Oximetry 98 98 97 Oxygen Delivery Nasal Cannula Oxygen Flow Rate 2 07/16/24 20:00 07/16/24 20:00 07/16/24 23:05 Temperature 97.6 F Pulse Rate 83 87 87 Respiratory Rate 20 20 Blood Pressure 118/65 Pulse Oximetry 97 97 Oxygen Delivery Nasal Cannula Oxygen Flow Rate 2 2 07/16/24 23:20 07/17/24 00:00 07/17/24 00:00 Temperature 97.0 F L Pulse Rate 100 100 100 Respiratory Rate 20 20 Blood Pressure 153/73 H Pulse Oximetry 99 99 Oxygen Delivery Nasal Cannula Oxygen Flow Rate 2 2 07/17/24 04:00 07/17/24 04:00 07/17/24 05:30 Temperature 97.2 F L Pulse Rate 85 85 84 Respiratory Rate 20 18 Blood Pressure 144/72 H Pulse Oximetry 96 97 Oxygen Delivery Nasal Cannula Oxygen Flow Rate 2 07/17/24 05:45 Temperature Pulse Rate 86 Respiratory Rate 18 Blood Pressure Pulse Oximetry 98 Oxygen Delivery Oxygen Flow Rate Intake/Output Intake/Output: Intake & Output 07/14/24 07/15/24 07/16/24 07/17/24 23:59 23:59 23:59 23:59 Intake Total 350 3230 2990 1830 Output Total 2050 2200 2200 Balance 350 1180 790 -370 Meds/Results Medications: Active Medications Generic Name Dose Route Start Last Admin Trade Name Freq PRN Reason Stop Dose Admin Acetaminophen 650 mg 07/14/24 17:46 Acetaminophen 325 Mg Tablet PO Q4H PRN Mild Pain (1-3) or Fever Apixaban 5 mg 07/15/24 09:00 07/17/24 09:05 Apixaban 2.5 Mg Tablet BY MOUTH 5 mg BID AMEE Administration Azithromycin 500 mg 07/15/24 10:00 07/17/24 09:06 Azithromycin 250 Mg Tablet PO 500 mg DAILY AMEE Administration Budesonide 0.5 mg 07/15/24 18:30 07/17/24 07:13 Budesonide Respule Neb 0.5 Mg/2 Ml Amp INHALATION Not Given Q12HRT AMEE Diltiazem HCl 240 mg 07/18/24 09:00 Diltiazem Hcl Cd 240 Mg Cap.24hr PO DAILY AMEE Diltiazem HCl 60 mg 07/17/24 09:25 Diltiazem Hcl 30 Mg Tablet PO 07/17/24 09:26 ONCE STA Finasteride 5 mg 07/15/24 09:00 07/17/24 09:04 Finasteride 5 Mg Tablet PO 5 mg DAILY AMEE Administration Fluticasone/Umeclidinium/Vilanterol 1 puff 07/15/24 09:00 07/17/24 09:03 Fluticasone/Umeclidin/Vilanter 100-62.5-25 Mcg Ellipta INHALATION 1 puff DAILYRT AMEE Administration Furosemide 20 mg 07/15/24 17:00 07/17/24 09:02 Furosemide Inj 20 Mg/2 Ml Vial IV PUSH 20 mg BID AMEE Administration Guaifenesin 1,200 mg 07/15/24 10:00 07/17/24 09:05 Guaifenesin 12 Hr 600 Mg Tabcr PO 1,200 mg Q12HR AMEE Administration Ceftriaxone Sodium 1 gm in 50 mls @ 100 mls/hr 07/15/24 10:00 07/17/24 09:06 Rocephin 1 Gm/Ns 50 Ml IVPB 100 mls/hr DAILY AMEE Administration Levalbuterol HCl 0.63 mg 07/17/24 12:30 Levalbuterol Neb 0.63 Mg/3 Ml INHALATION Q6HRT AMEE Loratadine 10 mg 07/15/24 21:00 07/16/24 20:02 Loratadine 10 Mg Tablet PO 10 mg QHS AMEE Administration Magnesium Oxide 400 mg 07/15/24 17:00 07/17/24 09:03 Magnesium Oxide 400 Mg Tablet PO 400 mg BID AMEE Administration Methylprednisolone Sodium Succinate 40 mg 07/16/24 18:00 07/17/24 07:13 Methylprednisolone Sod Succ 40 Mg Vial IV PUSH Not Given Q12H AMEE Nonformulary Drug ( 1 each 07/17/24 09:00 07/17/24 09:02 Roflumilast[Daliresp PO 08/16/24 08:59 1 each ) 500mcg Tablet) DAILY AMEE Administration Pantoprazole Sodium 40 mg 07/15/24 09:00 07/17/24 09:03 Pantoprazole 40 Mg Tablet PO 40 mg QAM AMEE Administration Potassium Chloride 40 meq 07/15/24 10:45 07/17/24 08:10 Potassium Chloride 20 Meq Er Tablet PO 40 meq DAILY@0800 AMEE Administration Pravastatin Sodium 20 mg 07/15/24 09:00 07/17/24 09:03 Pravastatin Sodium 20 Mg Tablet PO 20 mg DAILY AMEE Administration Tamsulosin HCl 0.4 mg 07/15/24 09:00 07/17/24 09:04 Tamsulosin Hcl 0.4 Mg Capsule PO 0.4 mg BID AMEE Administration Radiology Results: ITS Impressions Chest X-Ray 07/14/24 16:39 IMPRESSION: Bullous emphysema, suggestion of pulmonary hypertension No active pulmonary infiltrate is detected Chest CT 07/15/24 11:06 IMPRESSION: 1. Severe emphysema. Labs Labs: Laboratory Results - last 24 hr 07/16/24 07/17/24 10:00 07:47 WBC 21.7 H* RBC 4.65 L Hgb 12.1 L Hct 37.3 MCV 80.2 MCH 26.0 L MCHC 32.4 RDW 15.9 H Plt Count 270 MPV 9.5 Sodium 135 L Potassium 4.4 Chloride 100 Carbon Dioxide 27 Anion Gap 8 BUN 32 H Creatinine 1.34 H Estim Creat Clear Calc 45 Estimated GFR 52 L Glucose 122 H Calculated Osmolality 287 Calcium 8.9 Magnesium 2.0 Total Bilirubin 0.4 AST 20 ALT 18 Alkaline Phosphatase 101 Total Protein 6.2 L Albumin 3.2 L Nasal MRSA (PCR) Not detected Quality VTE Prophylaxis VTE prophylaxis: pharmacologic ordered -Patient's previous records reviewed on admission -ER notes reviewed in detail on admission -discussed all findings and current treatment plan with patient/Family/POA -Consultations reviewed for recommendations -Patient's disposition for safe discharge discussed with supportive employment case manager Dictation performed by [employer] direct speech recognition software, therefore script supervisor variants and typographical errors may occur. Hospitalist MIPS Advance Care Plan I have confirmed that the patient's Advanced Care Plan is present, code status is documented, or surrogate decision maker is listed in patient medical record.: Yes Medication Reconciliation I have utilized all available resources to obtain, update and review the patients current medications (includes all prescriptions, OTC, herbals, cannabis, and nutritional supplements).: Yes The patient is not eligible for med reconciliation; the patient is in a emergent medical situation where delaying treatment would jeopardize the patients health.: No
[2024-07-17] MEDS: FAMOTIDINE 20 MG TABLET PO ×2 (11:53→20:31)
[2024-07-17] MEDS: dilTIAZem HCL 30 MG TABLET 60 MG PO (11:56)
[2024-07-17] MEDS: dilTIAZem HCL 30 MG TABLET 60 MG (12:00)
[2024-07-17] MEDS: BUDESONIDE RESPULE NEB 0.5 MG/2 ML AMP INHALATION (16:52)
[2024-07-17] MEDS: methylPREDNISolone SOD SUCC 40 MG VIAL IV PUSH (17:44)
[2024-07-17] MEDS: CYCLOBENZAPRINE HCL 10 MG TABLET PO (17:45)
[2024-07-17] MEDS: LORATADINE 10 MG TABLET PO (20:31)
[2024-07-18] VITALS (16 sets, daily range): BP systolic 112–133; BP diastolic 53–75; PULSE 71–102; RESP 14–20; TEMP 36.4–36.8; O2SAT 95–100
[2024-07-18 05:14] LABS: Hematocrit 37.6 % (37.0-46.0); Hemoglobin 12.2 g/dL (12.4-15.3); Mean Corpuscular HGB Conc 32.4 g/dL (32-36); Mean Corpuscular Hemoglobin 26.3 pg (27.0-31.0); Mean Corpuscular Volume 81.2 fL (78.0-102.0); Mean Platelet Volume 9.3 fl (8.7-11.0); Platelet Count Result 254 K/mm3 (150-420); Red Blood Count 4.63 M/mm3 (4.70-6.10); Red Cell Distribution Width 15.7 % (11.6-14.4); White Blood Count 13.8 K/mm3 (4.8-10.8)
[2024-07-18 05:27] LABS: Alanine Aminotransferase 17 U/L (16-63); Alkaline Phosphatase 93 U/L (46-116); Anion Gap 9 mmol/L (4-12); Aspartate Amino Transferase 17 U/L (15-37); Bilirubin,Total 0.4 mg/dL (0.00-1.00); Blood Urea Nitrogen 36 mg/dL (7-18); Calcium 8.8 mg/dL (8.5-10.1); Carbon Dioxide 29 mmol/L (21-32); Chloride 100 mmol/L (98-108); Estimated CRCL calculation 45 ml/min; Estimated Glomerular Filt Rate 52; Glucose 127 mg/dL (70-99); Magnesium 1.9 mg/dL (1.8-2.4); Osmolality Calculated 296 mOsm/kg (285-295); Potassium 4.6 mmol/L (3.5-5.1); Sodium 138 mmol/L (136-145); Total Protein 5.9 g/dL (6.4-8.2)
[2024-07-18] MEDS: BUDESONIDE RESPULE NEB 0.5 MG/2 ML AMP INHALATION ×2 (05:35→16:47)
[2024-07-18] MEDS: predniSONE 20 MG TABLET 40 MG PO (08:05)
[2024-07-18] MEDS: POTASSIUM CHLORIDE 20 MEQ ER TABLET 40 MEQ PO (08:10)
[2024-07-18] MEDS: FLUTICASONE/UMECLIDIN/VILANTER 100-62.5-25 MCG ELLIPTA 1 PUFF INHALATION (09:06)
[2024-07-18] MEDS: guaiFENesin 12 HR 600 MG TABCR 1200 MG PO ×2 (09:06→20:26)
[2024-07-18] MEDS: FINASTERIDE 5 MG TABLET PO (09:08)
[2024-07-18] MEDS: PRAVASTATIN SODIUM 20 MG TABLET PO (09:08)
[2024-07-18] MEDS: MAGNESIUM OXIDE 400 MG TABLET PO ×2 (09:08→17:19)
[2024-07-18] MEDS: FUROSEMIDE INJ 20 MG/2 ML VIAL IV PUSH ×2 (09:09→17:19)
[2024-07-18] MEDS: AZITHROMYCIN 250 MG TABLET 500 MG PO (09:09)
[2024-07-18] MEDS: FAMOTIDINE 20 MG TABLET PO ×2 (09:09→20:26)
[2024-07-18] MEDS: TAMSULOSIN HCL 0.4 MG CAPSULE PO ×2 (09:09→17:19)
[2024-07-18] MEDS: dilTIAZem HCL CD 240 MG CAP.24HR PO (09:09)
[2024-07-18] MEDS: APIXABAN 2.5 MG TABLET 5 MG BY MOUTH ×2 (09:10→17:19)
[2024-07-18] MEDS: [UNRECOGNIZED DRUG - OTHER] PO (09:10)
[2024-07-18] MEDS: ROFLUMILAST 500 MCG PO (09:10)
[2024-07-18] MEDS: CYCLOBENZAPRINE HCL 10 MG TABLET PO (09:10)
--- NOTE | 2024-07-18 10:02 | P.PN_ITS ---
Progress Note: A&P Assessment and Plan (1) COPD exacerbation: Code(s): J44.1 - Chronic obstructive pulmonary disease with (acute) exacerbation Status: Acute Assessment and Plan: Steroid management decrease steroids Initiated 2l of oxygen for comfort, despite normal saturation levels mucus clearing: Ordered CPT percussion vest to aid in reducing mucus plugging Infection management: Sputum culture ordered for diagnostic clarity IV antibiotics : Continued as patient would benefit from IV administration (2) CHF (congestive heart failure): Qualifiers: Heart failure chronicity: acute on chronic Heart failure type: unspecified Qualified Code(s): I50.9 - Heart failure, unspecified Code(s): I50.9 - Heart failure, unspecified Status: Acute Plan Code status: Full code per patient DVT prophylaxis: Eliquis Stress ulcer prophylaxis: Protonix 40 daily PT/OT notes: patient ambulatory/ patient has PT/OT outpatient Disposition: patient was admitted to the medical unit for further treatment of COPD exacerbation will continue with steroids and DuoNebs added Pulmicort and CT chest for further evaluation pending patient with moderate to severe shortness of breath and noticeable increased work of breathing. Patient is ambulatory plan will be to discharge home when medically stable will need follow-up with primary and director of labor and delivery outpatient recommend follow-up with Pulmonary rehab. Subjective Date/time seen: 07/18/24 10:02 Interval history: Patient has continued to improve and able to complete a sentence without shortness of breath. Today is the first day that he has been able to feel like he is getting better. Patient has shortness of breath with activity and he is also complaining of when he coughs that his chest is hurting due to coughing so much. Patient is coughing up greenish sputum and He become short of breath with activity . it is in best intrest for another day of antibioitics to ensure there are no bounce back to the hosptial Exam Narrative: * GENERAL: Alert and oriented x 3. increased work of breathing difficulty catching his breath during conversation pleasant male * EYES: EOMI. No scleral icterus. PERRLA. * HEENT: Moist mucous membranes. * LUNGS: Clear to auscultation bilaterally. increased work of breathing use of accessory muscles with nonproductive cough noticeable shortness of breath even with conversations * CARDIOVASCULAR: Regular rate and rhythm. No murmur. No JVD. S1-S2 * ABDOMEN: Soft, non tenderness and non-distended. No palpable masses. * EXTREMITIES: No edema. Non-tender * SKIN: No rashes or lesions. Skin warm, dry. * NEUROLOGIC: No focal neurological deficits. CN II-XII grossly intact * PSYCHIATRIC: Appropriate mood and affect. Good judgement and insight. No visual or auditory hallucinations. No suicidal or homicidal ideation. * * Remains the same from yesterday Objective Data Vital Signs Vital Signs: Vital Signs - 24 hr 07/17/24 11:45 07/17/24 12:00 07/17/24 12:00 Temperature 98.2 F Pulse Rate 85 87 88 Respiratory Rate 20 14 20 Blood Pressure 125/67 Pulse Oximetry 98 98 98 Oxygen Delivery Room Air 07/17/24 16:30 07/17/24 16:30 07/17/24 16:52 Temperature 97.3 F L Pulse Rate 86 86 67 Respiratory Rate 18 20 Blood Pressure 124/52 L Pulse Oximetry 98 98 Oxygen Delivery Room Air 07/17/24 17:06 07/17/24 20:00 07/17/24 20:00 Temperature 98 F Pulse Rate 70 74 74 Respiratory Rate 20 20 Blood Pressure 124/70 Pulse Oximetry 98 92 Oxygen Delivery Room Air 07/17/24 23:48 07/17/24 23:50 07/17/24 23:56 Temperature 97.8 F Pulse Rate 78 78 74 Respiratory Rate 20 20 Blood Pressure 133/74 Pulse Oximetry 96 95 Oxygen Delivery Room Air 07/18/24 00:10 07/18/24 04:00 07/18/24 04:00 Temperature 97.8 F Pulse Rate 88 71 78 Respiratory Rate 20 20 Blood Pressure 133/71 Pulse Oximetry 97 96 Oxygen Delivery Room Air 07/18/24 05:37 07/18/24 05:56 07/18/24 08:00 Temperature 97.5 F L Pulse Rate 80 74 81 Respiratory Rate 18 18 14 Blood Pressure 117/58 L Pulse Oximetry 96 100 97 Oxygen Delivery Room Air Intake/Output Intake/Output: Intake & Output 07/15/24 07/16/24 07/17/24 07/18/24 23:59 23:59 23:59 23:59 Intake Total 3230 2990 3565 550 Output Total 2050 2200 3200 1600 Balance 1180 790 365 -1050 Meds/Results Medications: Active Medications Generic Name Dose Route Start Last Admin Trade Name Freq PRN Reason Stop Dose Admin Acetaminophen 650 mg 07/14/24 17:46 Acetaminophen 325 Mg Tablet PO Q4H PRN Mild Pain (1-3) or Fever Apixaban 5 mg 07/15/24 09:00 07/18/24 09:10 Apixaban 2.5 Mg Tablet BY MOUTH 5 mg BID AMEE Administration Azithromycin 500 mg 07/15/24 10:00 07/18/24 09:09 Azithromycin 250 Mg Tablet PO 07/18/24 23:59 500 mg DAILY AMEE Administration Budesonide 0.5 mg 07/15/24 18:30 07/18/24 05:35 Budesonide Respule Neb 0.5 Mg/2 Ml Amp INHALATION 0.5 mg Q12HRT AMEE Administration Cyclobenzaprine HCl 10 mg 07/17/24 15:50 07/18/24 09:10 Cyclobenzaprine Hcl 10 Mg Tablet PO 10 mg Q8H PRN Administration Muscle Spasm Diltiazem HCl 240 mg 07/18/24 09:00 07/18/24 09:09 Diltiazem Hcl Cd 240 Mg Cap.24hr PO 240 mg DAILY AMEE Administration Famotidine 20 mg 07/17/24 09:00 07/18/24 09:09 Famotidine 20 Mg Tablet PO 20 mg Q12HR AMEE Administration Finasteride 5 mg 07/15/24 09:00 07/18/24 09:08 Finasteride 5 Mg Tablet PO 5 mg DAILY AMEE Administration Fluticasone/Umeclidinium/Vilanterol 1 puff 07/15/24 09:00 07/18/24 09:06 Fluticasone/Umeclidin/Vilanter 100-62.5-25 Mcg Ellipta INHALATION 1 puff DAILYRT AMEE Administration Furosemide 20 mg 07/15/24 17:00 07/18/24 09:09 Furosemide Inj 20 Mg/2 Ml Vial IV PUSH 20 mg BID AMEE Administration Guaifenesin 1,200 mg 07/15/24 10:00 07/18/24 09:06 Guaifenesin 12 Hr 600 Mg Tabcr PO 1,200 mg Q12HR AMEE Administration Ceftriaxone Sodium 1 gm in 50 mls @ 100 mls/hr 07/15/24 10:00 07/18/24 09:15 Rocephin 1 Gm/Ns 50 Ml IVPB 07/20/24 23:59 100 mls/hr DAILY AMEE Administration Levalbuterol HCl 0.63 mg 07/17/24 12:30 07/18/24 05:35 Levalbuterol Neb 0.63 Mg/3 Ml INHALATION 0.63 mg Q6HRT AMEE Administration Loratadine 10 mg 07/15/24 21:00 07/17/24 20:31 Loratadine 10 Mg Tablet PO 10 mg QHS AMEE Administration Magnesium Oxide 400 mg 07/15/24 17:00 07/18/24 09:08 Magnesium Oxide 400 Mg Tablet PO 400 mg BID AMEE Administration Nonformulary Drug ( 1 each 07/17/24 09:00 07/18/24 09:10 Roflumilast[Daliresp PO 08/16/24 08:59 1 each ) 500mcg Tablet) DAILY AMEE Administration Potassium Chloride 40 meq 07/15/24 10:45 07/18/24 08:10 Potassium Chloride 20 Meq Er Tablet PO 40 meq DAILY@0800 AMEE Administration Pravastatin Sodium 20 mg 07/15/24 09:00 07/18/24 09:08 Pravastatin Sodium 20 Mg Tablet PO 20 mg DAILY AMEE Administration Prednisone 40 mg 07/18/24 08:00 07/18/24 08:05 Prednisone 20 Mg Tablet PO 40 mg DAILY@0800 AMEE Administration Tamsulosin HCl 0.4 mg 07/15/24 09:00 07/18/24 09:09 Tamsulosin Hcl 0.4 Mg Capsule PO 0.4 mg BID AMEE Administration Radiology Results: ITS Impressions Chest X-Ray 07/14/24 16:39 IMPRESSION: Bullous emphysema, suggestion of pulmonary hypertension No active pulmonary infiltrate is detected Chest CT 07/15/24 11:06 IMPRESSION: 1. Severe emphysema. Labs Labs: Laboratory Results - last 24 hr 07/18/24 05:06 WBC 13.8 H RBC 4.63 L Hgb 12.2 L Hct 37.6 MCV 81.2 MCH 26.3 L MCHC 32.4 RDW 15.7 H Plt Count 254 MPV 9.3 Sodium 138 Potassium 4.6 Chloride 100 Carbon Dioxide 29 Anion Gap 9 BUN 36 H Creatinine 1.35 H Estim Creat Clear Calc 45 Estimated GFR 52 L Glucose 127 H Calculated Osmolality 296 H Calcium 8.8 Magnesium 1.9 Total Bilirubin 0.4 AST 17 ALT 17 Alkaline Phosphatase 93 Total Protein 5.9 L Albumin 3.0 L
[2024-07-18] MEDS: LORATADINE 10 MG TABLET PO (20:26)
--- NOTE | 2024-07-18 21:26 | PC.NURSE ---
Telemetry dc'd per order.
[2024-07-19 04:00] VITALS: BP 116/67; PULSE 85; RESP 20; TEMP 36.4; O2SAT 96
[2024-07-19 05:17] LABS: Hematocrit 39.7 % (37.0-46.0); Hemoglobin 12.6 g/dL (12.4-15.3); Mean Corpuscular HGB Conc 31.7 g/dL (32-36); Mean Corpuscular Hemoglobin 25.8 pg (27.0-31.0); Mean Corpuscular Volume 81.4 fL (78.0-102.0); Mean Platelet Volume 9.7 fl (8.7-11.0); Platelet Count Result 278 K/mm3 (150-420); Red Blood Count 4.88 M/mm3 (4.70-6.10); Red Cell Distribution Width 15.3 % (11.6-14.4); White Blood Count 14.4 K/mm3 (4.8-10.8)
[2024-07-19 05:35] LABS: Alanine Aminotransferase 28 U/L (16-63); Alkaline Phosphatase 96 U/L (46-116); Anion Gap 6 mmol/L (4-12); Aspartate Amino Transferase 16 U/L (15-37); Bilirubin,Total 0.4 mg/dL (0.00-1.00); Blood Urea Nitrogen 36 mg/dL (7-18); Calcium 8.8 mg/dL (8.5-10.1); Carbon Dioxide 33 mmol/L (21-32); Chloride 98 mmol/L (98-108); Estimated CRCL calculation 45 ml/min; Estimated Glomerular Filt Rate 52; Glucose 116 mg/dL (70-99); Osmolality Calculated 293 mOsm/kg (285-295); Sodium 137 mmol/L (136-145); Total Protein 6.1 g/dL (6.4-8.2)
[2024-07-19] MEDS: BUDESONIDE RESPULE NEB 0.5 MG/2 ML AMP INHALATION (05:41)
[2024-07-19 05:42] VITALS: PULSE 86; RESP 16; O2SAT 96
[2024-07-19 05:56] VITALS: PULSE 76; RESP 16; O2SAT 99
[2024-07-19 08:00] VITALS: BP 124/74; PULSE 78; RESP 18; TEMP 36.8; O2SAT 97
--- NOTE | 2024-07-19 08:37 | PM.IMPN ---
Subjective Date/time seen: 07/19/24 08:37 Objective Data Vital Signs Vital Signs: Vital Signs - 24 hr 07/18/24 11:31 07/18/24 11:42 07/18/24 12:00 Temperature Pulse Rate 93 87 80 Respiratory Rate 18 18 Blood Pressure Pulse Oximetry 98 99 Oxygen Delivery 07/18/24 12:00 07/18/24 16:00 07/18/24 16:00 Temperature 98.2 F 97.9 F Pulse Rate 80 102 H 82 Respiratory Rate 14 19 Blood Pressure 112/65 120/53 L Pulse Oximetry 98 96 Oxygen Delivery Room Air Room Air 07/18/24 16:40 07/18/24 16:49 07/18/24 19:22 Temperature Pulse Rate 78 83 88 Respiratory Rate 20 20 Blood Pressure Pulse Oximetry 98 98 Oxygen Delivery 07/18/24 19:22 07/18/24 20:00 07/18/24 23:31 Temperature 97.8 F Pulse Rate 85 74 74 Respiratory Rate 20 20 20 Blood Pressure 121/66 Pulse Oximetry 97 97 95 Oxygen Delivery Room Air Room Air 07/18/24 23:45 07/18/24 23:47 07/19/24 04:00 Temperature 97.9 F 97.6 F Pulse Rate 77 85 Respiratory Rate 20 20 Blood Pressure 124/75 116/67 Pulse Oximetry 96 96 96 Oxygen Delivery Room Air Room Air 07/19/24 05:42 07/19/24 05:56 Temperature Pulse Rate 86 76 Respiratory Rate 16 16 Blood Pressure Pulse Oximetry 96 99 Oxygen Delivery Intake/Output Intake/Output: Intake & Output 07/16/24 07/17/24 07/18/24 07/19/24 23:59 23:59 23:59 23:59 Intake Total 2990 3565 2775 650 Output Total 2200 3200 2700 2150 Balance 790 365 75 -1500 Meds/Results Medications: Active Medications Generic Name Dose Route Start Last Admin Trade Name Freq PRN Reason Stop Dose Admin Acetaminophen 650 mg 07/14/24 17:46 Acetaminophen 325 Mg Tablet PO Q4H PRN Mild Pain (1-3) or Fever Apixaban 5 mg 07/15/24 09:00 07/18/24 17:19 Apixaban 2.5 Mg Tablet BY MOUTH 5 mg BID AMEE Administration Budesonide 0.5 mg 07/15/24 18:30 07/19/24 05:41 Budesonide Respule Neb 0.5 Mg/2 Ml Amp INHALATION 0.5 mg Q12HRT AMEE Administration Cyclobenzaprine HCl 10 mg 07/17/24 15:50 07/18/24 09:10 Cyclobenzaprine Hcl 10 Mg Tablet PO 10 mg Q8H PRN Administration Muscle Spasm Diltiazem HCl 240 mg 07/18/24 09:00 07/18/24 09:09 Diltiazem Hcl Cd 240 Mg Cap.24hr PO 240 mg DAILY AMEE Administration Famotidine 20 mg 07/17/24 09:00 07/18/24 20:26 Famotidine 20 Mg Tablet PO 20 mg Q12HR AMEE Administration Finasteride 5 mg 07/15/24 09:00 07/18/24 09:08 Finasteride 5 Mg Tablet PO 5 mg DAILY AMEE Administration Fluticasone/Umeclidinium/Vilanterol 1 puff 07/15/24 09:00 07/18/24 09:06 Fluticasone/Umeclidin/Vilanter 100-62.5-25 Mcg Ellipta INHALATION 1 puff DAILYRT AMEE Administration Furosemide 20 mg 07/15/24 17:00 07/18/24 17:19 Furosemide Inj 20 Mg/2 Ml Vial IV PUSH 20 mg BID AMEE Administration Guaifenesin 1,200 mg 07/15/24 10:00 07/18/24 20:26 Guaifenesin 12 Hr 600 Mg Tabcr PO 1,200 mg Q12HR AMEE Administration Ceftriaxone Sodium 1 gm in 50 mls @ 100 mls/hr 07/15/24 10:00 07/18/24 09:45 Rocephin 1 Gm/Ns 50 Ml IVPB 07/20/24 23:59 Infused DAILY AMEE Infusion Levalbuterol HCl 0.63 mg 07/17/24 12:30 07/19/24 05:41 Levalbuterol Neb 0.63 Mg/3 Ml INHALATION 0.63 mg Q6HRT AMEE Administration Loratadine 10 mg 07/15/24 21:00 07/18/24 20:26 Loratadine 10 Mg Tablet PO 10 mg QHS AMEE Administration Magnesium Oxide 400 mg 07/15/24 17:00 07/18/24 17:19 Magnesium Oxide 400 Mg Tablet PO 400 mg BID AMEE Administration Nonformulary Drug ( 1 each 07/17/24 09:00 07/18/24 09:10 Roflumilast[Daliresp PO 08/16/24 08:59 1 each ) 500mcg Tablet) DAILY AMEE Administration Potassium Chloride 40 meq 07/15/24 10:45 07/18/24 08:10 Potassium Chloride 20 Meq Er Tablet PO 40 meq DAILY@0800 AMEE Administration Pravastatin Sodium 20 mg 07/15/24 09:00 07/18/24 09:08 Pravastatin Sodium 20 Mg Tablet PO 20 mg DAILY AMEE Administration Prednisone 40 mg 07/18/24 08:00 07/18/24 08:05 Prednisone 20 Mg Tablet PO 40 mg DAILY@0800 AMEE Administration Tamsulosin HCl 0.4 mg 07/15/24 09:00 07/18/24 17:19 Tamsulosin Hcl 0.4 Mg Capsule PO 0.4 mg BID AMEE Administration Radiology Results: ITS Impressions Chest X-Ray 07/14/24 16:39 IMPRESSION: Bullous emphysema, suggestion of pulmonary hypertension No active pulmonary infiltrate is detected Chest CT 07/15/24 11:06 IMPRESSION: 1. Severe emphysema. Labs Labs: Laboratory Results - last 24 hr 07/19/24 05:05 WBC 14.4 H RBC 4.88 Hgb 12.6 Hct 39.7 MCV 81.4 MCH 25.8 L MCHC 31.7 L RDW 15.3 H Plt Count 278 MPV 9.7 Sodium 137 Potassium 4.0 Chloride 98 Carbon Dioxide 33 H Anion Gap 6 BUN 36 H Creatinine 1.36 H Estim Creat Clear Calc 45 Estimated GFR 52 L Glucose 116 H Calculated Osmolality 293 Calcium 8.8 Magnesium 2.0 Total Bilirubin 0.4 AST 16 ALT 28 Alkaline Phosphatase 96 Total Protein 6.1 L Albumin 3.0 L
[2024-07-19] MEDS: FLUTICASONE/UMECLIDIN/VILANTER 100-62.5-25 MCG ELLIPTA 1 PUFF INHALATION (09:11)
[2024-07-19] MEDS: FUROSEMIDE INJ 20 MG/2 ML VIAL IV PUSH (09:12)
[2024-07-19] MEDS: ROFLUMILAST 500 MCG PO (09:12)
[2024-07-19] MEDS: [UNRECOGNIZED DRUG - OTHER] PO (09:12)
[2024-07-19] MEDS: guaiFENesin 12 HR 600 MG TABCR 1200 MG PO (09:12)
[2024-07-19] MEDS: FAMOTIDINE 20 MG TABLET PO (09:13)
[2024-07-19] MEDS: FINASTERIDE 5 MG TABLET PO (09:13)
[2024-07-19] MEDS: MAGNESIUM OXIDE 400 MG TABLET PO (09:14)
[2024-07-19] MEDS: PRAVASTATIN SODIUM 20 MG TABLET PO (09:14)
[2024-07-19] MEDS: dilTIAZem HCL CD 240 MG CAP.24HR PO (09:14)
[2024-07-19] MEDS: predniSONE 20 MG TABLET 40 MG PO (09:14)
[2024-07-19] MEDS: TAMSULOSIN HCL 0.4 MG CAPSULE PO (09:15)
[2024-07-19] MEDS: APIXABAN 2.5 MG TABLET 5 MG BY MOUTH (09:15)
[2024-07-19] MEDS: POTASSIUM CHLORIDE 20 MEQ ER TABLET 40 MEQ PO (09:15)
--- NOTE | 2024-07-19 10:41 | P.DS_ITS ---
DS: Admitting Diagnosis Discharge Date 07/19/24 Admitting Diagnosis COPD exacerbation heart failure with reduced ejection fraction chronic kidney disease stage 3 atrial fibrillation hypertension coronary artery disease hypomagnesemia BPH DS: Discharge Diagnosis Discharge Diagnosis (1) COPD exacerbation: Code(s): J44.1 - Chronic obstructive pulmonary disease with (acute) exacerbation Status: Acute (2) CHF (congestive heart failure): Qualifiers: Heart failure chronicity: acute on chronic Heart failure type: unspecified Qualified Code(s): I50.9 - Heart failure, unspecified Code(s): I50.9 - Heart failure, unspecified Status: Acute DS: Summary Hospital Course Reason for hospitalization: COPD exacerbation heart failure with reduced ejection fraction chronic kidney disease stage 3 atrial fibrillation hypertension coronary artery disease hypomagnesemia BPH Hospital Course: this is a 74-year-old male who presented to the hospital on 07/15/2024 with complaints of shortness of breath. Workup in the hospital included chest x-ray which shown bolus emphysema suggestive of pulmonary hypertension, no active pulmonary infiltrate detected. Chest x-ray showed severe emphysema. Initial labs shown a white blood cell count of 15.1, potassium 3.1, EGFR 55, creatinine 1.29, lactic acid 2.2> 2.6, alk-phos 134, troponin 16.1, proBNP 1705, TSH 0.20. UA was obtained and only showed a urine specific gravity of 1.025 otherwise negative. MRSA was negative. Respiratory panel was negative for influenza a and B, RSV, COVID. Sputum culture was obtained and was negative. Blood cultures were obtained and showing no growth to date on preliminary read. He was optimized with azithromycin, Rocephin, Mucinex, Claritin, DuoNebs, and steroids. He is feeling much better today. His antibiotic was switched over to Augmentin and he finished a full 5 day course of azithromycin while here. his vital signs are stable, he is afebrile, he is currently on room air. He will need to finish his Augmentin and prednisone taper, get labs redrawn in 1 week, and then follow up with his primary care physician in 1 week. His TSH was low this admission and he was informed of this. Lab works were sent with patient to recheck that level as well as a T3 and a T4. Copies of the labs will be sent to his primary care physician for further diagnosis and treatment pending these l abs. final diagnosis: acute hypoxic respiratory failure, community-acquired pneumonia, COPD exacerbation Status at Discharge Cognitive/behavioral status at discharge: alert oriented x4 Functional status at discharge: independent ambulation Overall status at discharge: patient is progressing back to baseline Time Spent with Patient Time attestation: Total time spent providing and/or coordinating discharge services: Time spent: Greater than 30 minutes Exam Narrative: General: In no acute distress, well nourished Head: atraumatic, no encephalopathy Eyes: PERRLA, sclera clear ENT: moist mucous membranes, nasal passages clear Neck: supple, no JVD, no adenopathy, trachea midline Cardiac: Normal S1 and S2. RRR,No murmur, gallops or friction rubs, peripheral pulses intact. Respiratory: Lungs clear to auscultation, slight wheeze right lung base greater than left, currently on room air, no acute respiratory distress seen or use of accessory muscles. Gastrointestinal: soft, non-distended, non-tender, normoactive bowel sounds. : voiding without difficulty. Extremities: moves all extremities well, no edema, good ROM, strength 5/5 Skin: clean, dry, intact. No wounds or lesions. Neuro: Alert and oriented x4, cranial nerves intact, no neuro deficits. Psych: normal mood, normal affect, interactive DS: Data Data Completed and Pending Completed studies during hospitalization: Chest x-ray chest CT Pending studies at discharge: blood cultures Labs on day of discharge: Labs from last 24 hours 07/19/24 05:05 WBC 14.4 H RBC 4.88 Hgb 12.6 Hct 39.7 MCV 81.4 MCH 25.8 L MCHC 31.7 L RDW 15.3 H Plt Count 278 MPV 9.7 Sodium 137 Potassium 4.0 Chloride 98 Carbon Dioxide 33 H Anion Gap 6 BUN 36 H Creatinine 1.36 H Estim Creat Clear Calc 45 Estimated GFR 52 L Glucose 116 H Calculated Osmolality 293 Calcium 8.8 Magnesium 2.0 Total Bilirubin 0.4 AST 16 ALT 28 Alkaline Phosphatase 96 Total Protein 6.1 L Albumin 3.0 L Preliminary micro results at discharge 07/14/24 16:38 Blood Culture - Preliminary Blood 07/14/24 16:27 Blood Culture - Preliminary Blood Procedures/Treatments: none Discharge Plan Discharge Attending physician on discharge: Philip Johns Discharging Clinician: Bryanna Dodge Anticipated Discharge Date/Time: 07/19/24 10:35 Patient Disposition: Home, Self-Care Activity: as tolerated Diet: as tolerated Discharge Instructions: Follow up with Primary Care physician within 1 week and let them know that you had your thyroid level checked and it came back at 0.20. You will need this repeated which a lab requisite will be provided. This may indicate hyperthyroidism however you will need your labs checked again before proper diagnosis. Finish all your antibiotic as prescribed even if you are feeling better Finish your steroid taper Continue taking Claritin and Mucinex over the counter as preventative. Continue using Albuterol rescue inhaler or Duonebs as needed for your shortness of breath or wheezing. You finished a full course of Azithromycin while inpatient. Patient Instructions: Antibiotic Form, Amoxicillin/Clavulanate Potassium (By mouth), Apixaban (By mouth), A-fib (Atrial Fibrillation) (DC), Fall Prevention for Older Adults (DC), Emphysema (GEN), COPD (Chronic Obstructive Pulmonary Disease) (GEN), How Your Lungs Work (DC) Patient Language: Slovenian Stand Alone Forms: General Discharge Information Follow-up/Referrals: Liliana May MD [Primary Care Provider] - 1 week Discharge Medications: New loratadine 10 mg Tablet 10 mg PO QHS Qty: 30 0RF prednisone 10 mg tablet 10 mg PO DIRECTED Qty: 26 0RF Rx Instructions: see taper instructions Take 40 mg ( 4 tabs) starting tomorrow for 2 days, Then decrease to 30 mg ( 3 tabs) for 3 days, Then decrease to 20 mg ( 2tabs) for 3 days, Then decrease to 10 mg (1 tab) for 3 days, Then discontinue guaifenesin [Mucus Relief ER] 600 mg Tablet Extended Release 12hr 1,200 mg PO Q12HR Qty: 30 0RF amoxicillin-pot clavulanate 875-125 mg tablet 1 tablet PO Q12H Qty: 10 0RF Continued pravastatin 20 mg tablet 20 mg PO DAILY Rx Instructions: TAKE ONE TABLET BY MOUTH DAILY roflumilast [Daliresp] 500 mcg tablet 500 mcg PO DAILY diltiazem HCl 180 mg capsule,extended release 24hr 180 mg PO DAILY Trelegy Ellipta 100-62.5-25 mcg blister with device 1 inh INHALATION DAILY finasteride 5 mg tablet 5 mg PO DAILY Eliquis 5 mg tablet 5 mg PO BID Qty: 180 3RF albuterol sulfate 90 mcg/actuation HFA aerosol inhaler 1 - 2 inh inhalation Q4-6H PRN (Reason: shortness of breath or wheezing) 90 Days Qty: 25.5 2RF ipratropium bromide 0.02 % solution 2.5 ml inhalation Q6H PRN (Reason: shortness of breath or wheezing) Qty: 75 3RF Trelegy Ellipta 100-62.5-25 mcg blister with device 1 inh inhalation Q24H magnesium oxide 400 mg (241.3 mg magnesium) Tablet 400 mg PO DAILY Qty: 30 0RF omeprazole 40 mg capsule,delayed release(DR/EC) 40 mg PO DAILY Qty: 100 1RF tamsulosin 0.4 mg capsule 0.4 mg PO BID Qty: 60 2RF Other Ambulatory Orders: Complete Blood Count no Diff (Routine) Timeframe: 1 Week Location: Determined by Patient Ordered By: Bryanna Dodge Triiodothyronine T3 Free (Routine) Timeframe: 1 Week Location: Determined by Patient Ordered By: Bryanna Dodge Free T4 Free Thyroxine (Routine) Timeframe: 1 Week Location: Determined by Patient Ordered By: Bryanna Dodge Thyroid Stimulating Hormone Reflex (Routine) Timeframe: 1 Week Location: Determined by Patient Ordered By: Bryanna Dodge Date of admission: 07/15/24 15:49 Primary Care Provider: Liliana May Admitting Provider: Philip Johns Attending physician on admission: Bryanna Dodge Condition: Improved Quality VTE Prophylaxis VTE prophylaxis: pharmacologic ordered Hospitalist MIPS Heart Failure (Exclusion) Patient has history of Heart Transplant or Left Ventricular Assistive Device?: No IF YES, STOP HERE Heart Failure (Qualifier) Patient has current or prior documentation of LVEF less than or equal to 40%, or mod/servere depressed LVSF?: Yes IF NO, STOP HERE If Yes, Heart Failure (Qualifier) Patient was prescribed or already taking an Angiotensin-Converting Enzyme (RADHA) Inhibitor, or Antiotensin Receptor Chel (ARB): Yes Patient was prescribed or already taking bisoprolol, carvedilol, or sustained release metoprolol succinate: Yes
--- NOTE | 2024-07-19 13:55 | PC.NURSE ---
1230 dc instructions, f/u, and meds went over. importance of f/u appointments and labs. voices an understanding. dc per wc to personal auto.
--- NOTE | 2024-07-23 10:37 | PC.NURSE ---
patient returned call and only had 1 question regarding OP labs, question answered and doing well,
== END 2024-07-19 12:30 | disposition home or self-care (01) | DRG 190 ==
LOC: CHSED 17:36 → CHS2ND 18:03
PROVIDERS: Nurse Practitioner Family; Admitting Provider Internal Medicine; Emergency Provider Emergency Medicine; PCP Family Medicine; Visit Provider Nurse Practitioner Acute Care
DX: J44.1 Chronic obstructive pulmonary disease with (acute) exacerbation (principal); I50.23 Acute on chronic systolic (congestive) heart failure; J18.9 Pneumonia, unspecified organism; J96.01 Acute respiratory failure with hypoxia; I13.0 Hypertensive heart and chronic kidney disease with heart failure and stage 1 through stage 4 chronic kidney disease, or unspecified chronic kidney disease; I48.19 Other persistent atrial fibrillation; J44.0 Chronic obstructive pulmonary disease with (acute) lower respiratory infection; I25.10 Atherosclerotic heart disease of native coronary artery without angina pectoris; N18.30 Chronic kidney disease, stage 3 unspecified; E83.42 Hypomagnesemia; E78.5 Hyperlipidemia, unspecified; E55.9 Vitamin D deficiency, unspecified; K21.9 Gastro-esophageal reflux disease without esophagitis; N40.0 Benign prostatic hyperplasia without lower urinary tract symptoms; M81.0 Age-related osteoporosis without current pathological fracture; Z79.01 Long term (current) use of anticoagulants; Z95.5 Presence of coronary angioplasty implant and graft; Z87.891 Personal history of nicotine dependence
CPT/HCPCS: 36415; 71045; 71250; 80053; 81003; 83605; 83735; 83880; 84443; 84484; 85025; 85027; 85380; 85610; 85730; 87040; 87070; 87205; 87637; 87641; 93005; 94640; 94668; 96361; 96365; 96366; 96367; 96368; 96375; 96376; 99285; A9270; G0378; J0456; J0696; J1940; J2919; J3475; J7050; J7512

== ENCOUNTER 2024-07-26 12:31 | Outpatient (CLI) | payer MEDICARE, OTHER, SELFPAY ==
[2024-07-26 12:48] LABS: Hematocrit 41.6 % (37.0-46.0); Hemoglobin 13.4 g/dL (12.4-15.3); Mean Corpuscular HGB Conc 32.2 g/dL (32-36); Mean Corpuscular Hemoglobin 26.2 pg (27.0-31.0); Mean Corpuscular Volume 81.3 fL (78.0-102.0); Mean Platelet Volume 8.9 fl (8.7-11.0); Platelet Count Result 267 K/mm3 (150-420); Red Blood Count 5.12 M/mm3 (4.70-6.10); Red Cell Distribution Width 15.7 % (11.6-14.4)
[2024-07-26 13:03] LABS: White Blood Count 22.9 K/mm3 (4.8-10.8)
[2024-07-26 13:37] LABS: Thyroid Stimulating Hormone Reflex 1.22 u/IU/mL (0.36-3.74)
[2024-07-26 13:38] LABS: Free T3 2.56 pg/mL (2.18-3.98); Free T4 Free Thyroxine 1.23 ng/dL (0.76-1.46)
== END 2024-07-26 12:32 | disposition home or self-care (01) ==
PROVIDERS: PCP Family Medicine; Visit Provider Nurse Practitioner Acute Care
DX: E05.90 Thyrotoxicosis, unspecified without thyrotoxic crisis or storm (principal); D72.829 Elevated white blood cell count, unspecified
CPT/HCPCS: 36415; 84439; 84443; 84481; 85027

== ENCOUNTER 2024-08-01 17:24 | Emergency (ER) | payer MEDICARE, OTHER, SELFPAY ==
[2024-08-01] VITALS (21 sets, daily range): BP systolic 107–153; BP diastolic 59–90; PULSE 71–105; RESP 14–30; TEMP 36.8–37; O2SAT 92–100
--- NOTE | ~2024-08-01 | XR_ITS ---
EXAMINATION: XR chest 1V portable DATE: 08/01/2024 18:22 INDICATION: Cough and shortness of breath. TECHNIQUE: A single frontal view of the chest was obtained on 2 radiographs. COMPARISON: Chest single view 07/14/2024, chest CT 07/15/2024 FINDINGS: There are lucencies at the lung apices, consistent with emphysema. A calcified right lung n odule is consistent with a hamartoma. No pleural effusion or pneumothorax. The heart size is normal. There are old healed left rib fractures. IMPRESSION: 1. Emphysema. Reviewed, dictated and finalized at location A. GRAPHICAL DRAFTER IMPRESSION: 1. Emphysema.
--- NOTE | 2024-08-01 17:34 | ED.GENADULT ---
HPI - General Adult General Chief complaint: Shortness of Breath/Dyspnea Stated complaint: shortness of breath Source: patient Mode of arrival: ambulatory Limitations: no limitations History of Present Illness HPI narrative: 74-year-old white male complains of nonproductive cough shortness of breath and dyspnea on exertion history of COPD and emphysema without sore throat he has had some chest tightness some right ear pain and headache today. Patient has a history of COPD has had recent admission to the hospital discharge July 19 with COPD exacerbation heart failure with reduced ejection fraction chronic kidney disease stage 3 atrial fib with controlled rate hypertension coronary artery disease hypo magnesemia BPH. Patient's has dyspnea with exertion. At his best he can walk 40 ft before he has to the stopping catch his breath all of 2023. Now today he was short of breath just walking to the bathroom. Had several admissions for COPD exacerbation. He is not on home oxygen. Complaints of chest tightness and a nonproductive cough. Is not really short of breath at rest. Otherwise he has been eating and drinking voiding and stooling fine without swelling lumps or bumps bleeding or bruising dizziness or lightheadedness rash or itching or any other pain or complaints. Related Data Home Medications ?Medication ?Instructions ?Recorded ?Confirmed ?Last Taken ?Type finasteride 5 mg tablet 5 mg PO DAILY 01/06/24 07/14/24 01/22/24 08:00 History fluticasone fur. 100 mcg-umeclid 1 inh inhalation Q24H 02/17/24 07/14/24 07/14/24 History 62.5 mcg-vilant 25 mcg inhalat.powder (Trelegy Ellipta) pravastatin 20 mg tablet 20 mg PO DAILY 07/14/24 07/14/24 Unknown History roflumilast 500 mcg tablet 500 mcg PO DAILY 07/14/24 07/16/24 Unknown History (Daliresp) diltiazem HCl 180 mg 180 mg PO DAILY 07/15/24 07/15/24 07/14/24 History capsule,extended release 24 hr fluticasone fur. 100 mcg-umeclid 1 inh inhalation DAILY 07/16/24 07/16/24 07/16/24 09:00 History 62.5 mcg-vilant 25 mcg inhalat.powder (Trelegy Ellipta) Allergies Allergy/AdvReac Type Severity Reaction Status Date / Time lisinopril Allergy Unknown Cough Verified 07/14/24 16:15 Sulfa (Sulfonamide Allergy Cough Verified 07/14/24 16:15 Antibiotics) Review of Systems Review of Systems: All systems reviewed & are unremarkable except as noted in HPI and below PMFSH Past Medical History Medical History Chronic anticoagulation Oral cancer Completely excised, no additional treatment required. Septic shock Gastroesophageal reflux disease Coronary artery disease Chronic obstructive pulmonary disease Former smoker Chronic kidney disease, stage 3 Hypertension Heart failure with reduced ejection fraction Echocardiogram in April 2023 showed reduced LV function with an EF of 40 to 45% and abnormal diastolic function. Community acquired pneumonia, bilateral Chest pain Elevated d-dimer COPD exacerbation Sinusitis Myocardial infarction Evidence of infarct on stress test from September 2018 without reversible ischemia, EF of 37%. Pneumonia Osteoporosis Rectal polyp Dyslipidemia Persistent atrial fibrillation Vitamin D deficiency, unspecified Surgical History Surgical History History of tonsillectomy History of bilateral cataract extraction History of colonoscopy with polypectomy History of vasectomy Family History Family History Mother Patient's mother is Family history of malignant neoplasm Social History Social History Social History: Surrogate medical decision maker: Beulah Cross, spouse. Code status: Full code. Smoking packs per day: 1.5 Smoking cigarettes per day: 30.0 Years smoked: 50 Smoking pack-years: 75.00 Smoking status: Never smoker Tobacco type: cigarettes Second hand tobacco smoke exposure: Yes Smoking end date: 10/09/21 Alcohol intake: never Drinks per week: 0 Alcohol use details: Rare alcohol use in moderation. Substance use: never Substance use type: does not use Do You Feel Safe in your Home?: Yes Lack of Transportation: No Lack of Food: Never True Current Housing: I Have Housing Concerned About Future Housing: No Difficulty Paying Gas/Electric Bills: No Difficulty Paying for Meds: No Currently Unemployed: No Education: High School Diploma/GED Difficulty w/ Childcare or Family Care: No Living arrangements: with family Additional living arrangements comments: Lives with spouse and son in [place]. Occupation/Education: retired Additional occupation/education comments: Retired from the [employer] after 24 years. Worked for [employer] thereafter. Spiritual care concerns: No Agree to blood products: Yes Exam Narrative: Elderly White male patient with no apparent distress.? Head normocephalic, atraumatic.? Eyes conjunctiva pink sclera nonicteric.? Extraocular movements are intact.? Ears externally normal.? Oropharynx is clear with moist mucous membranes without exudates.? Neck is supple nontender no lymphadenopathy.? Back is nontender.? Lungs bronchial breath sounds that are otherwise clear without wheezes rales or rhonchi..? Heart is Irregularly irregular rhythm with a controlled rate. No murmurs gallops or rubs.? Chest wall nontender. Abdomen is soft and nontender no hepatosplenomegaly or masses no CVA tenderness no abdominal bruits.? Extremities no cyanosis clubbing or edema.? Skin is warm and dry without rashes or lesions.? Neurological patient is alert and oriented x4.? Motor and sensory grossly intact.? Gait is normal. Course Vital Signs Vital signs: Vital Signs Temperature 37.0 C 08/01/24 17:36 Pulse Rate 96 08/01/24 17:36 Respiratory Rate 24 H 08/01/24 17:36 Blood Pressure 143/67 H 08/01/24 17:36 Pulse Oximetry 98 08/01/24 17:36 Oxygen Delivery Room Air 08/01/24 17:36 Temperature 37.0 C 08/01/24 17:36 Pulse Rate 96 08/01/24 21:00 Respiratory Rate 21 H 08/01/24 21:00 Blood Pressure 117/66 08/01/24 20:31 Pulse Oximetry 96 08/01/24 21:00 Oxygen Delivery Room Air 08/01/24 20:50 Medical Decision Making MDM Narrative Medical decision making narrative: ?Patient placed in room: 6 with family ? History and physical was performed. Normal COVID flu RSV, troponin coags lactic acid D-dimer and 2nd troponin at 2:00 a.m. was normal. CMP:? BUN 19 creatinine 1.44 GFR 48 Osmo 296 albumin 3.1 total protein 6.3 ?(these are her usual values) rest of her CMP is normal, BNP is 1077 it was 1554 on July 15 Chest x-ray per radiologist:? Emphysema Independent Historian: family External Source Review: Differential Dx includes but not limited to: Pneumonia COPD exacerbation heart failure electrolyte imbalance Medications were Reviewed: Medications given: DuoNeb Solu-Medrol 125 IV Independently Interpreted by me: EKG 1. Showed atrial fib with large amount of baseline artifact no changes from previous EKG no acute ST T wave changes impression abnormal EKG as independently interpreted by me. EKG 2. Showed atrial fib at a rate [address] T wave abnormalities no changes from July 14 EKG done earlier. Impression abnormal EKG as independently interpreted by me. patient ambulate in the hallway with really no change in his pulse or O2 sat seemed to do well. He was a little breathless when he stops and sat down with sat did not drop below 92%. Shared decision Making: Evaluation was discussed all questions were asked and answered patient And family agreed with the plan. we gave the patient option for admission versus discharge on steroids and follow-up with primary care this week and/or coordinator of rehabilitation services. Social Situation Impacting Patients Care: severe COPD emphysema Discussed with Dr. GILMORE DIAGNOSIS: COPD exacerbation atrial fib with controlled ventricular response, dyspnea on exertion with hypoxia DISPOSITION : discharge home CONDITION AT DISCHARGE: follow-up with primary care provider discussed getting on home O2. Vital Signs Vital Signs: Vital Signs Temperature 37.0 C 08/01/24 17:36 Pulse Rate 96 08/01/24 17:36 Respiratory Rate 24 H 08/01/24 17:36 Blood Pressure 143/67 H 08/01/24 17:36 Pulse Oximetry 98 08/01/24 17:36 Oxygen Delivery Room Air 08/01/24 17:36 Temperature 37.0 C 08/01/24 17:36 Pulse Rate 96 08/01/24 21:00 Respiratory Rate 21 H 08/01/24 21:00 Blood Pressure 117/66 08/01/24 20:31 Pulse Oximetry 96 08/01/24 21:00 Oxygen Delivery Room Air 08/01/24 20:50 Lab Data 08/01/24 17:52 08/01/24 17:52 Labs: Lab Results 08/01/24 08/01/24 Range/Units 17:52 19:39 WBC 13.4 H (4.8-10.8) K/mm3 RBC 4.76 (4.70-6.10) M/mm3 Hgb 12.4 (12.4-15.3) g/dL Hct 38.5 (37.0-46.0) % MCV 80.9 (78.0-102.0) fL MCH 26.1 L (27.0-31.0) pg MCHC 32.2 (32-36) g/dL RDW 15.7 H (11.6-14.4) % Plt Count 205 (150-420) K/mm3 MPV 9.1 (8.7-11.0) fl PT 11.2 (9.50-12.1) Seconds INR 1.0 APTT 27.1 (23.9-30.70) Sec D-Dimer 0.24 (0.19-0.50) mg/L Sodium 142 (136-145) mmol/L Potassium 3.6 (3.5-5.1) mmol/L Chloride 103 (98-108) mmol/L Carbon Dioxide 27 (21-32) mmol/L Anion Gap 12 (4-12) mmol/L BUN 19 H (7-18) mg/dL Creatinine 1.44 H (0.70-1.30) mg/dL Estim Creat Clear Calc 42 ml/min Estimated GFR 48 L (59 - ) Glucose 102 H (70-99) mg/dL Calculated Osmolality 296 H (285-295) mOsm/kg Lactic Acid 1.6 (0.4-2.0) mmol/L Calcium 8.7 (8.5-10.1) mg/dL Total Bilirubin 0.6 (0.00-1.00) mg/dL AST 13 L (15-37) U/L ALT 22 (16-63) U/L Alkaline Phosphatase 87 (46-116) U/L Troponin I 12.1 10.9 (0.00-60.4) ng/L NT-Pro-B Natriuret Pep 1077 H (0-125) pg/mL Total Protein 6.3 L (6.4-8.2) g/dL Albumin 3.1 L (3.4-5.0) g/dL Influenza A (RT-PCR) Negative (Negative) Influenza B (RT-PCR) Negative (Negative) RSV (RT-PCR) Negative (Negative) SARS-CoV-2 RNA (RT-PCR) Negative (Negative) Discharge Plan Discharge Clinical Impression: Acute exacerbation of chronic obstructive pulmonary disease (COPD) Patient Disposition: Home, Self-Care Condition: Stable Instructions: COPD (Chronic Obstructive Pulmonary Disease) (ED), Secondhand Smoke Exposure in Children (ED) Additional Instructions: prednisone 10 m tablets daily for 5 days, then 2 tabs daily for 5 days, then 1 tab daily for 5 days, then 1/2 tablet daily for 6 days. Use your nebulizer treatment 4 times a day with the think he needed or not. Follow-up with your primary care provider and coordinator of rehabilitation services this week and discuss getting a longer course of prednisone. Z-Miles starting tomorrow August 02. Avoid smoking or having others smoke in your house. Patient Language: Lao Prescriptions: New azithromycin [Zithromax Z-Miles] 250 mg tablet See Rx Instructions PO .COMPLEX Qty: 6 0RF Rx Instructions: For 250 mg dose pack: take 500 mg today (day 1), then 250 mg for 4 days (days 2-5) No Action pravastatin 20 mg tablet 20 mg PO DAILY Rx Instructions: TAKE ONE TABLET BY MOUTH DAILY roflumilast [Daliresp] 500 mcg tablet 500 mcg PO DAILY diltiazem HCl 180 mg capsule,extended release 24hr 180 mg PO DAILY Trelegy Ellipta 100-62.5-25 mcg blister with device 1 inh INHALATION DAILY loratadine 10 mg Tablet 10 mg PO QHS Qty: 30 0RF guaifenesin [Mucus Relief ER] 600 mg Tablet Extended Release 12hr 1,200 mg PO Q12HR Qty: 30 0RF amoxicillin-pot clavulanate 875-125 mg tablet 1 tablet PO Q12H Qty: 10 0RF prednisone 10 mg tablet 10 mg PO DIRECTED Qty: 26 0RF Rx Instructions: see taper instructions Take 40 mg ( 4 tabs) starting tomorrow for 2 days, Then decrease to 30 mg ( 3 tabs) for 3 days, Then decrease to 20 mg ( 2tabs) for 3 days, Then decrease to 10 mg (1 tab) for 3 days, Then discontinue finasteride 5 mg tablet 5 mg PO DAILY Eliquis 5 mg tablet 5 mg PO BID Qty: 180 3RF albuterol sulfate 90 mcg/actuation HFA aerosol inhaler 1 - 2 inh inhalation Q4-6H PRN (Reason: shortness of breath or wheezing) 90 Days Qty: 25.5 2RF ipratropium bromide 0.02 % solution 2.5 ml inhalation Q6H PRN (Reason: shortness of breath or wheezing) Qty: 75 3RF Trelegy Ellipta 100-62.5-25 mcg blister with device 1 inh inhalation Q24H magnesium oxide 400 mg (241.3 mg magnesium) Tablet 400 mg PO DAILY Qty: 30 0RF omeprazole 40 mg capsule,delayed release(DR/EC) 40 mg PO DAILY Qty: 100 1RF tamsulosin 0.4 mg capsule 0.4 mg PO BID Qty: 60 2RF Follow-up/Referrals: Liliana May MD [Primary Care Provider] - Time of Disposition: 21:49
--- NOTE | 2024-08-01 17:35 | ECG_ITS ---
Test Date: 2024-08-01 17:46:29 Measurements Intervals [place] Rate: 98 P: 0 [place]: 0 QRS: 52 QRSD: 90 T: 19 QT: 320 QTc: 410 Interpretive Statements ATRIAL FIBRILLATION artifact ABNORMAL RHYTHM ECG Electronically Signed On 08-01-2024 20:39:48 HOSTESS PARTY SALES REPRESENTATIVE by Jacob Cartagena M.D.
[2024-08-01 18:00] LABS: Hematocrit 38.5 % (37.0-46.0); Hemoglobin 12.4 g/dL (12.4-15.3); Mean Corpuscular HGB Conc 32.2 g/dL (32-36); Mean Corpuscular Hemoglobin 26.1 pg (27.0-31.0); Mean Corpuscular Volume 80.9 fL (78.0-102.0); Mean Platelet Volume 9.1 fl (8.7-11.0); Platelet Count Result 205 K/mm3 (150-420); Red Blood Count 4.76 M/mm3 (4.70-6.10); Red Cell Distribution Width 15.7 % (11.6-14.4); White Blood Count 13.4 K/mm3 (4.8-10.8)
[2024-08-01 18:18] LABS: Lactic Acid Reflex 1.6 mmol/L (0.4-2.0)
[2024-08-01 18:19] LABS: D Dimer 0.24 mg/L (0.19-0.50); Influenza B QL RT-PCR Negative (Negative); Partial Thromboplastin Time 27.1 Sec (23.9-30.70); Prothrombin Time 11.2 Seconds (9.50-12.1); SARS-CoV-2 RNA PCR Negative (Negative)
[2024-08-01 18:20] LABS: Influenza A QL RT-PCR Negative (Negative); RSV RNA, RT-PCR Negative (Negative)
[2024-08-01 18:26] LABS: Alanine Aminotransferase 22 U/L (16-63); Albumin Level 3.1 g/dL (3.4-5.0); Alkaline Phosphatase 87 U/L (46-116); Anion Gap 12 mmol/L (4-12); Aspartate Amino Transferase 13 U/L (15-37); Bilirubin,Total 0.6 mg/dL (0.00-1.00); Blood Urea Nitrogen 19 mg/dL (7-18); Calcium 8.7 mg/dL (8.5-10.1); Carbon Dioxide 27 mmol/L (21-32); Chloride 103 mmol/L (98-108); Estimated CRCL calculation 42 ml/min; Estimated Glomerular Filt Rate 48; Glucose 102 mg/dL (70-99); Osmolality Calculated 296 mOsm/kg (285-295); Potassium 3.6 mmol/L (3.5-5.1); Sodium 142 mmol/L (136-145); Total Protein 6.3 g/dL (6.4-8.2); Troponin I 12.1 ng/L (0.00-60.4)
[2024-08-01 18:30] LABS: NT Pro B Type Natriuretic Pept 1077 pg/mL (0-125)
--- NOTE | 2024-08-01 19:02 | PC.NURSE ---
report to genny kirby. all questions answered.
--- NOTE | 2024-08-01 19:51 | ECG_ITS ---
Test Date: 2024-08-01 19:58:04 Measurements Intervals [place] Rate: 83 P: 0 [place]: 0 QRS: -1 QRSD: 80 T: 39 QT: 311 QTc: 366 Interpretive Statements ATRIAL FIBRILLATION ABNORMAL RHYTHM ECG Compared to ECG 08/01/2024 17:46:29 no changes Electronically Signed On 08-01-2024 20:37:29 ART HANDLER by Jacob Cartagena M.D.
[2024-08-01 20:00] LABS: Troponin I 10.9 ng/L (0.00-60.4)
[2024-08-01] MEDS: IPRATROPIUM 0.5 MG/ALBUTEROL SULFATE 2.5 MG AMPUL.NEB 3 ML INHALATION (20:24)
[2024-08-01] MEDS: methylPREDNISolone SOD SUCC 125 MG VIAL IV PUSH (21:11)
[2024-08-01] MEDS: AZITHROMYCIN 250 MG TABLET 500 MG PO (21:50)
--- NOTE | 2024-08-08 12:30 | PC.NURSE ---
FINAL BLOOD CULTURE REPORT; NO GROWTH AFTER 5 DAYS.
--- OUTSIDE RECORDS SUMMARY | 2024-08-08 21:27 | XMS_ITS | Clinical Summary ---
Author Organization [facility] Address [address] [place] [address]. [place], [place] [id number] [place] [address] Care Team Providers Care Healthcare Project Manager Name Role Phone Unavailable Primary Care Provider Unavailabl e Social History Tobacco Use Types Packs/Day Years Used Date Smoking Tobacco: Never Assessed Sex and Gender Information Value Date Recorded Sex Assigned at Not on file Legal Sex Male 8:11 PM CDT Gender Identity Not on file Sexual Orientation Not on file Plan of Treatment Health Maintenance Due Date Last Done Comments Colorectal Cancer Screening Colonoscopy (10 Years) 1950 Hepatitis C 01/27/1970 DTaP, Tdap and Td Vaccines ( 1 - Tdap) 01/27/1971 Zoster Vaccines (1 of 2) 01/27/2002 Pneumococcal Vaccine: 65+ Ye ars (1 of 1 - PCV) 01/27/2017 COVID-19 Vaccine ( - 2023-2 5 season) 2024 Influenza Adult (#1) 2024 RSV Immunization or 60+ Years (1 - 1-dose 75+ series) 01/27/2027 Meningococcal Vaccine Aged Out No hunter ananth eligible based on patient's age to complete this topic RSV Immunizations Under 20 Months Aged Out No longer eligible based on patient's age to complete this topic
--- OUTSIDE RECORDS SUMMARY | 2024-08-08 21:28 | XMS_ITS | Encounter Summary ---
Author Organization [facility] Address [address] [place] [address]. [place] [address] [place] [address] Care Team Providers Care Radio Engineer Name Role Phone Unavailable Primary Care Provider Unavailcharmaine e Encounter Details Date Type Department Care Team (Late st Contact Info) Description 08/16/2016 Abstract [facility] One Day Services [address] [place], [place] [id number] Isacc León MD [address] [facility] [address] [place] [phone] Social History Tobacco Use Types Packs/Day Years Used Date Smoking Tobacco: Never Assessed Sex and Gender Information Value Date Recorded Sex Assigned at Not on file Legal Sex Male 8:11 PM CDT Gender Identity Not on file Sexual Orientation Not on file documented as of this encounter Plan of Treatment Not on file documented as of this encounter Visit Diagnoses Diagnosis Cataract Unspecified cataract documented in this encounter
--- OUTSIDE RECORDS SUMMARY | 2024-08-08 21:28 | XMS_ITS | Encounter Summary ---
Author Organization [facility] Address [address] [place] [address]. [place] [address] [place] [address] Care Team Providers Care Washer Meat Name Role Phone Unavailable Primary Care Provider Unavailabl e Encounter Details Date Type Department Care Team (Late st Contact Info) Description 10/08/1998 Abstract [place] [address] Fam Mullins MD [address] [address] Social History Tobacco Use Types Packs/Day Years Used Date Smoking Tobacco: Never Assessed Sex and Gender Information Value Date Recorded Sex Assigned at Not on file Legal Sex Male 8:11 PM CDT Gender Identity Not on file Sexual Orientation Not on file documented as of this encounter Plan of Treatment Not on file documented as of this encounter Visit Diagnoses Not on filedocumented in this encounter
--- OUTSIDE RECORDS SUMMARY | 2024-08-08 21:28 | XMS_ITS | Encounter Summary ---
Author Organization [facility] Address [address] [place] [address]. [place], [place] [id number] [place] [address] Care Team Providers Care Hand Embroiderer Name Role Phone Unavailable Primary Care Provider Unavailabl e Encounter Details Date Type Department Care Team (Late st Contact Info) Description 10/13/1998 Abstract [place] [address] , Generic Conversion, Social History Tobacco Use Types Packs/Day Years [...]
--- OUTSIDE RECORDS SUMMARY | 2024-08-08 21:28 | XMS_ITS | Encounter Summary ---
Author Organization [facility] Address [address] [place] [address]. [place], [place] [address] [place] [address] Care Team Providers Care Licensing Registration Examiner Name Role Phone Unavailable Primary Care Provider Unavailabl e Encounter Details Date Type Department Care Team (Late st Contact Info) Description 10/13/1998 Abstract [place] [address] , Generic Conversion, Social History Tobacco Use [...]
--- OUTSIDE RECORDS SUMMARY | 2024-08-08 21:28 | XMS_ITS | Encounter Summary ---
Author Organization [facility] Address [address] [place] [address]. [place] [address] [place] [address] Care Team Providers Care Hard Candy Spinner Name Role Phone Unavailable Primary Care Provider Unavailabl e Encounter Details Date Type Department Care Team (Late st Contact Info) Description 05/27/[address] [facility] [address] [place], [place] [address] Pavel Sanchez MD [address] [place] [address] Social History Tobacco Use Types Packs/Day Years [...]
--- OUTSIDE RECORDS SUMMARY | 2024-08-08 21:28 | XMS_ITS | Encounter Summary ---
Author Organization [facility] Address [address] [place] [address]. [place] [address] [place] [address] Care Team Providers Care Visual Effects Artist Name Role Phone Unavailable Primary Care Provider Unavailabl e Encounter Details Date Type Department Care Team (Late st Contact Info) Description 06/26/[address] [facility] [address] [place], [place] [address] Pavel Sanchez MD [address] [place] [address] Social History Tobacco Use Types Packs/Day Years [...]
--- OUTSIDE RECORDS SUMMARY | 2024-08-08 21:28 | XMS_ITS | Encounter Summary ---
Author Organization [facility] Address [address] [place] [address]. [place] [address] [place] [address] Care Team Providers Care Assistant Merchandiser Name Role Phone Unavailable Primary Care Provider Unavailabl e Encounter Details Date Type Department Care Team (Late st Contact Info) Description 06/29/[address] [facility] One Day Services [address] [place], [place] [id number] Isacc León MD [address] [facility] [address] [place] [phone] Social History [...] as of this encounter Visit Diagnoses Diagnosis Persons encountering health services in other specified circumstances documented in this encounter
--- OUTSIDE RECORDS SUMMARY | 2024-08-08 21:29 | XMS_ITS | Encounter Summary ---
Author Organization [facility] Address [address] [place] [address] Phone Care Team Providers Care Res Habilitation Assistant Name Role Phone Liliana May MD Primary Care Provider Moose Singleton MD Unavailable [phone] Reason for Visit * Reason Comments FOM cancer Encounter Details Date Type Department Care Team (Late st Contact Info) Description 04/18/2023 1:20 PM CDT Office Visit [place] [facility] ([facility]) - [facility] [address] [facility] [address]th [place] [address] [place] [id number] Moose Singleton MD [address] [place] [address] Head and neck cancer (HCC) (Primary Dx) Social History Tobacco Use Types Packs/Day Years Used Date Smoking Tobacco: Former Cigarettes 0.4 57 S tarted: 1966 Smokeless Tobacco: Never Alcohol Use Standard Drinks/Week Comments Not Currently 0 (1 standard drink = 0.6 oz pur e alcohol) AUDIT-C Answer Date Recorded Q1: How often do you have a drink containing alc ohol? 2-4 times a month 10/05/2021 Q2: How many drinks containi ng alcohol do you have on a typical day when you are drinking? 1 or 2 10/05/2021 Q3: How often do you have si x or more drinks on one occasion? Never 10/05/2021 Sex and Gender Information Value Date Recorded Sex Assigned at Not on file Legal Sex Male 8:41 AM CDT Gender Identity Not on file Sexual Orientation Not on file documented as of this encounter Last Filed Vital Signs Vital Sign Reading Time Taken Comments Blood Pressure - - Pulse - - Temperature - - Respiratory Rate - - Oxygen Saturation - - Inhaled Oxygen Concentration - - Weight 76.3 kg (168 lb 3.2 oz) 04/18/2023 1:17 P M CDT Height - - Body Mass Index 22.81 11/29/2022 12:09 PM CDT documented in this encounter Progress Notes * Moose Singleton MD - 04/18/2023 1:20 PM CDT [facility] Department of Otolaryngology Division of Head and Neck Surgery 04/18/2023 Chilo Cross 1950 [id number] Referred by: Tavia Med onc: TBD Rad onc: TBD Chief Complaint: FOM verrucous SCC HPI: Mr. Cross is a 73 y.o. year old male with past history of 100 pack Year smoking and EtOH who presents in consultation for FOM mass. He reports that he had a mass in the FOM previously which wasworked up and negative but this mass has arisen over the past 6 weeks. No pain and no other symptoms. Bx showed SCC with Dr Squires. 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 Since then he was readmitted for bleeding after restarting Eliquis but has otherwise been doing well. The surgical site is now healed completely and he has few complaints. He otherwise denies changes in voice, stridor, difficulty breathing, changes in swallow including dysphagia/odynophagia, otalgia. No other masses of the head and neck or cutaneous cancers of the headand neck. Denies any systemic symptoms including fevers, chills, night sweats, or weight loss. 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 CHF (congestive heart failure) (CMS/HCC) (HCC) COPD (chronic obstructive pulmonary disease) (HCC) Ejection fraction < 50% GERD (gastroesophageal reflux disease) HL (hearing loss) HTN (hypertension) Pulmonary hypertension (HCC) PAST SURGICAL HISTORY: Past Surgical History: Procedure Laterality Date BRONCHOSCOPY CARDIAC STENT PLACEMENT COLONOSCOPY VASECTOMY SOCIAL HISTORY: Social History Socioeconomic History Marital status: Spouse name: Not on file Number of children: Not on file Years of education: Not on file Highest education level: Not on file Occupational History Not on file Tobacco Use Smoking status: Former Smoker Packs/day: 0.40 Types: Cigarettes Start date: 1967 Smokeless tobacco: Never Used Substance and Sexual Activity Alcohol use: Not Currently Drug use: Never Sexual activity: Defer Other Topics Concern Not on file Social History Narrative Not on file Social Determinants of Health Financial Resource Strain: Not on file Food Insecurity: Not on file Transportation Needs: Not on file Physical Activity: Not on file Stress: Not on file Social Connections: Not on file Intimate Partner Violence: Not on file Housing Stability: Not on file FAMILY HISTORY: Family History Problem Relation Age of Onset Cancer Mother Anesthesia problems Neg Hx MEDICATIONS: Current Outpatient Medications Medication Sig Dispense Refill albuterol sulfate (PROAIR HFA INHAL) as needed benzonatate (TESSALON) 200 mg capsule Take 200 mg by mouth as needed calcium carbonate/vitamin D3 (CALCIUM 500 + D, D3, ORAL) Take by mouth every morning (Patient not taking: Reported on 08/16/2022) cetirizine (ZyrTEC) 10 mg tablet Take 10 mg by mouth as needed for allergies Eliquis 5 mg tablet Take 1 tablet (5 mg total) by mouth 2 (two) times a day ebtsgvvatwn-zuwtyxlpa-smfodpfn (Trelegy Ellipta) 100-62.5-25 mcg inhaler Inhale 1 puff every morning ipratropium-albuteroL (DUO-NEB) 0.5-2.5 mg/3 mL nebulizer solution Take by nebulization every 6 (six) hours losartan (COZAAR) 25 mg tablet Take 25 mg by mouth every morning metoprolol XL (TOPROL-XL) 25 mg extended release tablet omeprazole (PriLOSEC) 40 mg capsule pravastatin (PRAVACHOL) 10 mg tablet tamsulosin (FLOMAX) 0.4 mg extended release capsule Take 0.4 mg by mouth every morning No current facility-administered medications for this visit. ALLERGIES: Sulfa (sulfonamide antibiotics) and Lisinopril IMMUNIZATIONS: Immunization History Administered Date(s) Administered Influenza, Unspecified 05/14/2021 Nexterra (J[employer]J) SARS-CoV-2 Vaccination 11/10/2020 [facility] SARS-CoV-2 Monovalent Vaccination (12+ YRS) 07/15/2021 REVIEW OF SYSTEMS: The patient-completed Review of Systems was reviewed and was scanned as an attachment to this encounter. Constitutional: Negative for fever, weight loss and weight gain. Eyes: No diplopia, blurry vision, or lacrimal drainage. HENT: Negative for ear pain, sore throat and hoarseness. Negative for difficulty swallowing. Cardiovascular: Negative for chest pain and dyspnea on exertion (Can climb up 2 floors). Respiratory: Is not experiencing shortness of breath. Gastrointestinal: Negative for nausea and vomiting. Neurological: Negative for headaches. Psychiatric: The patient is not nervous/anxious. Musculoskeletal: Denies muscle pain/weakness Heme/Lymph: Negative for lymph nodes, easy bruising PHYSICAL EXAM Vital Signs: Wt 76.3 kg (168 lb 3.2 oz) BMI 22.81 kg/m?? General: Well-developed, well-nourished. No distress. Communication and Voice: Clear pitch and clarity Respiratory Respiratory effort: Equal inspiration and expiration without stridor Cardiovascular Peripheral Vascular: Warm extremities with equal pulses Neuro: Patient oriented to person, place, and time; Appropriate mood and affect; Gait is intact with no imbalance; Cranial nerves II-XII are intact Head and Face Inspection: Normocephalic and atraumatic without mass or lesion Palpation: Facial skeleton intact without bony stepoffs Facial Strength: Facial motility symmetric and full bilaterally Eyes: PERRLA. No nystagmus with normal extraocular motion bilaterally ENT Pinna: External ear intact and fully developed External canal: Canal is patent with intact skin Tympanic Membrane: Clear and mobile External nose: No scar or anatomic deformity Internal Nose: Septum intact and midline. No edema, polyp, or rhinorrhea. TMJ: No pain to palpation with full mobility Salivary Glands: No mass or tenderness Lips: No lesion. Oral cavity: Defect with granulation tissue and minimal blood. Exposed bone no longer remains and is completely healed. Small area 2 mm of leukoplakia along the defect on left just off midline on thetongue which is stable Oropharynx: No mass or lesion. Tonsillar fossa symmetric. Base of tongue soft without mass or induration. Neck Trachea: Midline trachea. Thyroid: No mass or nodularity. Lymphatics: No lymphadenopathy. Procedure: Flexible fiberoptic nasopharyngoscopy/laryngoscopy (Scope): Indications: Need for detailed exam, hyperactive gag reflex, inadequate mirror visualization. Surgeon: Moose Singleton MD PhD Procedure note/findings: After informed discussion of the risks, benefits, and alternatives fiberoptic nasopharyngoscopy and laryngoscopy was recommended for above indications, and the patient consented to this. Nasal cavities were topically anesthetized and decongested with 4% lidocaine solution mixed with Afrin after which a flexible scope was easily advanced without difficulty into the left and right nasal cavities as well as into the nasopharynx. Nasal cavities were intact without gross mass or lesion. Nasopharynx, similarly, revealed no mass lesion or granularity. There was no ulceration. There was no gross asymmetry. Fossa of Rosenmueller was intact bilaterally. The eustachian tube orifices were intact bilaterally and patent. Posterior and lateral nasopharyngeal rodriguez were intact and symmetric without ulceration, mass, or granularity. Scope was now advanced distally. Visible oropharynx including lateral rodriguez and tongue base was clear without lesion. Larynx and hypopharynx were examined. Larynx was intact with normal true vocal cord mobility bilaterally. No discrete masses or lesions. Hypopharynx was clear without asymmetry. Airway was patent. The scope was then withdrawn and removed. He tolerated this well without complications. DATA: Lab Reports: NA Pathology Reports: Schlott bx invasive SCC well differentiated with verrucoid features Surgery 10/09/21 CANCER CASE SUMMARY FOR CANCER OF THE LIP AND ORAL CAVITY Procedure: Excision Tumor Site: Oral Floor of mouth Alveolar process, mandibular Tumor Laterality: Midline Tumor Focality: Unifocal Tumor Size: Greatest dimension: 0.9 cm Tumor Depth of Invasion (DOI): 1 mm Histologic Type: Squamous cell carcinoma, conventional with verrucous features Histologic Grade: G1: Well differentiated Specimen Margins: Uninvolved by invasive tumor Distance from closest margin: < 1 mm Location of closest margin: deep Uninvolved by high-grade dysplasia/in situ disease Tumor Bed Margin Orientation: Unoriented to true margin surface Tumor Bed Margins: Uninvolved by invasive tumor Uninvolved by high-grade dysplasia/in situ disease Lymphovascular Invasion: Not identified Perineural Invasion: Not identified Worst Pattern of Invasion (WPOI): WPOI 1-4 Regional Lymph Nodes: No nodes submitted or found Pathologic Stage Classification (pTNM, AJCC 8th Edition): pT1: Tumor <=2 cm, <=5 mm depth of invasion (DOI) pNX: Regional lymph nodes cannot be assessed Radiology Reports: CT Neck 09/28/21 FINDINGS: Dental fillings are noted with streak artifact the obscures portions of the exam. Within the limitations, no abnormally enhancing soft tissue lesion is identified. There is no erosion of the mandible seen. Scattered subcentimeter lymph nodes are seen in the neck. None are pathologically enlarged or abnormally enhancing. The muscles of the neck are normal. Vessels of the neck demonstrate normal course and caliber. Fascial planes are preserved and the deep spaces of the neck are normal. The visualized airway is widely patent. There are frothy secretions and mucosal thickening involving the left maxillary sinus with adjacent hyperostosis likely representing sequela of chronic sinusitis. The base of the skull and the temporal bones are normal. Limited views of the brain including the cerebellum and brainstem are normal. The limited view of the [place] of [place] is unremarkable. Other than a right lens ocular replacement, the visualized portions of the orbits are normal. There is a dense calcification in the right thyroid lobe measuring 1 centimeter. There is a 1.0 cm hypoattenuating right thyroid lobe nodule seen anterior to the calcification. There is an outpouching of the skin in the right supraorbital soft tissues which likely represents a skin tag. A few other areas of skin thickening and protrusion are noted in the bilateral posterior neck soft tissues at the level of C1. A cystic subcutaneous lesion in the midline of the posterior lower neck soft tissues is most compatible with a sebaceous cyst. There is mild to moderate spinal canal stenosis at C5-6. Degenerative disc changes are most pronounced at C5-6 with moderate neural foraminal stenosis at this level. Neural foramina are otherwise normal. There are reticular opacities with area of scarring and atelectasis seen in the upper lungs. There are diffuse emphysematous changes. Please see dedicated CT chest with contrast for further details. IMPRESSION: 1. No abnormally enhancing soft tissue identified in the floor of the mouth. No cervical lymphadenopathy. 2. Skin soft tissue thickening with exophytic appearing lesions in the right supraorbital region and in the neck soft tissues at the level of C1. These likely represent skin tags, however recommend direct correlation with visualization. CT Chest 09/28/21 IMPRESSION: 1. Severe centrilobular emphysema with an expansile complex cystic lesion in the left upper lobe. This may represent an infectious process, however adenocarcinoma can presumably have a similar appearance. Recommend comparison with prior studies if available. If not available, a follow-up study is recommended in approximately 2-3 months. Right upper lobe 2.0 cm partially calcified nodule may represent a hamartoma or partially calcified granuloma. Recommend comparison with prior studies if available. If not available, it can be reevaluated on the next follow-up. US Thyroid 10/01/21 FINDINGS: The thyroid is normal in size. Size right lobe: 5.2 cm craniocaudal, 2.3 cm transverse, 2.4 cm AP. Size left lobe: 3.6 cm craniocaudal, 1.5 cm transverse, 1.6 cm AP. Size isthmus: 0.3 cm AP. Estimated total number of nodules >/= 1 cm: 2 Number of spongiform nodules >/= 2 cm not described below (TR1): 0 Number of mixed cystic and solid nodules >/= 1.5 cm not described below (TR2): 0 Nodule 1: Location: Right mid posterior . Size: 1.3 cm craniocaudal x 0.9 cm transverse (the AP dimension is unable to be determined) Maximum Size: 1.3 cm Composition: Cannot determine (2) Echogenicity: Cannot determine (1) Shape: Cannot determine (0) Margins: Cannot determine (0) Echogenic foci: Macrocalcifications (1) ACR TI-RADS total points: 4 ACR TI-RADS risk category: TR4 (4-6 points) ACR TI-RADS recommendation: Follow-up US in 1 year Nodule 2: Location: Right mid anterior . Size: 1.4 cm craniocaudal x 1.0 cm transverse x 0.7 cm AP Maximum Size: 1.4 cm Composition: Mixed cystic and solid (1) Echogenicity: Isoechoic (1) Shape: Not taller than wide (0) Margins: Smooth (0) Echogenic foci: Punctate echogenic foci (3) (some of the echogenic foci appear not associated with cystic spaces). ACR TI-RADS total points: 5 ACR TI-RADS risk category: TR4 (4-6 points) ACR TI-RADS recommendation: Follow-up US in 1 year No lymphadenopathy is seen in the central or lateral neck. IMPRESSION: 1. Follow-up thyroid ultrasound in one year is recommended for the right thyroid nodules. CT Neck 05/17/22 IMPRESSION: Evaluation of floor of mouth limited by streak artifact secondary to dental rastafarian. However no definitive evidence of residual or recurrent enhancing mass in the mouth, and no cervical lymphadenopathy. CT Neck and Chest 08/16/22 IMPRESSION: Evaluation of floor of mouth is limited by streak artifact secondary to dental rastafarian. However no definitive evidence of residual or recurrent enhancing mass in the mouth, and no cervical Lymphadenopathy IMPRESSION: 1. No definitive evidence for intrathoracic metastatic disease. 2. Stable indeterminate 6 mm left lower lobe pulmonary nodule. 3. New scattered bibasilar tree-in-bud opacities are favored to represent infectious or inflammatory post aspiration changes. CT neck and chest 04/18/23 IMPRESSION: Postsurgical changes of floor of mouth surgical resection with marginal mandibulectomy. A 12mm focus of enhancing soft tissue within the mandibular resection bed is slightly more prominent compared to 11/29/22, which may represent recurrence or evolving post-surgical change. Short-term follow up or correlation with tissue sampling can be considered. No cervical lymphadenopathy. IMPRESSION: 1. Unchanged pulmonary nodules, probably benign. No new pulmonary nodules. I independently interpreted the neck CT dated 04/18/2023 which revealed no obvious pathologically enlarged nodes or enhancing lesions. There were no asymmetric lesions or areas of fullness and no evidence of recurrent disease. IMPRESSION/PLAN: He is now s/p composite resection (10/09/21; superficially invasive well differentiated T1Nx SCC withverrucous features 9 mm x 1 mm, no LVI, 1 mm deep margin, mild dysplasia at margin). Since then he was readmitted for bleeding after restarting Eliquis but has otherwise been doing well. Everything is now well healed. Tumor board favored no adjuvant therapy. CT Neck today with question of 1.2 cm focus of tissue in the resection bed but this looks entirely normal on exam. Will repeat imaging at next visit. - f/u in 4 mo - imaging CT neck due next visit with Jeny - we will alternate til year 2 every 4 mo (Neck and Chest due at my visit) Number/complexity of problems addressed: As noted above, this patient has a chronic illness with exacerbation, progression, or side effects of treatment, namely verrucous carcinoma. Amount/complexity of data reviewed and analyzed: I have independently interpreted the neck CT which was performed by another physician/quality health care profession and reviewed his Cr from today, ordered a CT neck for next visit, and reviewed his chest CT from today Moose Singleton MD PhD [employer] Attending, Head and Neck Surgery Department of Otolaryngology [facility] [phone] (Clinical nurse Bety Keith) Pager [phone] documented in this encounter Plan of Treatment Not on file documented as of this encounter Visit Diagnoses Diagnosis Head and neck cancer (HCC)- Primary documented in this encounter Discontinued Medications Medication Sig Discontinue Reason Start Date End Da te oxyCODONE (ROXICODONE) 5 mg immediate release tabletIndications:Pain Take 1 tablet (5 mg total) by mouth every 4 (four) hours as needed (intolerable pain) for up to 40 doses 10/11/2021 04/18/2023 documented as of this encounter Care Teams Res Habilitation Assistant Relationship Specialty Start Date End Date Liliana May MD [address] [place] [address] PCP - General Family Medicine 01/01/21 Moose Singleton MD [address] [place] [address] Consulting Physician Otolaryngology 09/27/21 documented as of this encounter
--- OUTSIDE RECORDS SUMMARY | 2024-08-08 21:29 | XMS_ITS | Encounter Summary ---
Author Organization [facility] Address [address] [place] [address] Phone Care Team Providers Care Wind Farm Engineer Name Role Phone Liliana May MD Primary Care Provider Moose Singleton MD Unavailable [phone] Encounter Details Date Type Department Care Team (Late st Contact Info) Description 04/03/2024 Telephone [place] [facility] ([facility]) - [facility] [address] [facility] 11th [place] [address] [place] [address] Bina Dorantes RN Social History Tobacco Use Types Packs/Day Years [...] more drinks on one occasion? Never 10/05/2021 Personal Safety Answer Date Recorded Getting School Help Needed Not on file 08/22 Sex and Gender Information Value Date Recorded Sex Assigned at Not on file Legal Sex Male 8:41 AM CDT Gender Identity Not on file Sexual Orientation Not on file documented as of this encounter Miscellaneous Notes * Telephone Encounter - Bina Dorantes RN - 04/03/2024 10:53 AM CDT VM left for patient with clear CT results and callback number for any questions he may have. documented in this encounter Plan of Treatment Not on file documented as of this encounter Visit Diagnoses Not on filedocumented in this encounter Care Teams Wind Farm Engineer Relationship Specialty Start Date End Date Liliana May MD [address] [place] [address] PCP - General Family Medicine 01/01/21 Moose Singleton MD [address] [place] [address] Consulting Physician Otolaryngology 09/27/21 documented as of this encounter
--- OUTSIDE RECORDS SUMMARY | 2024-08-08 21:29 | XMS_ITS | Encounter Summary ---
Author Organization [facility] Address [address] [place] [address] Phone Care Team Providers Care Clean Up Worker Name Role Phone Liliana May MD Primary Care Provider Moose Singleton MD Unavailable [phone] Encounter Details Date Type Department Care Team (Late st Contact Info) Description 04/25/2023 Telephone [facility]) - [facility] [address] [facility] 11th [place] [address] [place] [address] Patrizia Pa, RN Social History Tobacco Use Types Packs/Day [...] encounter Miscellaneous Notes * Telephone Encounter - Patrizia Pa RN - 04/25/2023 8:52 AM CDT Pt notified and voices understanding. * Telephone Encounter - Patrizia Pa RN - 04/25/2023 8:52 AM CDT ----- Message from Moose Singleton MD sent at 04/23/2023 5:25 PM CDT ----- Im comfortable with Jeremie as long as he keeps an eye too and lets us know if he sees anything or any worsening pain ----- Message ----- From: Patrizia Pa RN Sent: 04/19/2023 1:12 PM CDT To: Moose Singleton MD; # Pt want to know if you want him to come back sooner then August with this finding. ----- Message ----- From: Moose Singleton MD Sent: 04/18/2023 8:12 PM CDT To: Patrizia Pa RN; # Plz let him know about CT neck finding but tell him I dont see it on exam so I am comfortable with followup on repeat imaging. Jeny - GHAZAL Thx! documented in this encounter Plan of Treatment Not on file documented as of this encounter Visit Diagnoses Not on filedocumented in this encounter Care Teams Clean Up Worker Relationship Specialty Start Date End Date Liliana May MD [address] [place] [address] PCP - General Family Medicine 01/01/21 Moose Singleton MD [address] [place] [address] Consulting Physician Otolaryngology 09/27/21 documented as of this encounter
--- OUTSIDE RECORDS SUMMARY | 2024-08-08 21:29 | XMS_ITS | Encounter Summary ---
Author Organization [facility] Address [address] [place] [address] Care Team Providers Care Landscape And Yardwork Laborer Name Role Phone Unavailable Primary Care Provider Unavailabl e Reason for Visit * Reason Onset Date Comments Referral 06/20/2024 Encounter Details Date Type Department Care Team (Late st Contact Info) Description 06/20/2024 Telephone [facility] Pulmonology [facility] [address] [place] [id number] Salvador Ansari MD [address] [place] [address] Referral Social History Tobacco Use Types Packs/Day Years Used Date Smoking Tobacco: Never Assessed Sex and Gender Information Value Date Recorded Sex Assigned at Male 07/05/2024 10:59 AM SQL APPLICATION DEVELOPER Gender Identity Male 07/05/2024 10:59 AM SQL APPLICATION DEVELOPER Sexual Orientation Straight 07/05/2024 10 :59 AM SQL APPLICATION DEVELOPER documented as of this encounter Miscellaneous Notes * Telephone Encounter - Shanae Anderson - 06/20/2024 1:58 PM CST Received referral for zephyr valve consultation. Records scanned into media. Called and lmom to schedule. APPLICATION DEVELOPER documented in this encounter Plan of Treatment Not on file documented as of this encounter Visit Diagnoses Not on filedocumented in this encounter
--- OUTSIDE RECORDS SUMMARY | 2024-08-08 21:29 | XMS_ITS | Encounter Summary ---
Author Organization [facility] Address [address] [place] [address] Phone Care Team Providers Care Residency Director Name Role Phone Liliana May MD Primary Care Provider Moose Singleton MD Unavailable [phone] Reason for Visit * Reason Onset Date Comments Test Results 04/10/2024 Encounter Details Date Type Department Care Team (Late st Contact Info) Description 04/10/2024 Telephone [place] [facility] [address] [facility] [address] [facility] Advanced Medicine 11th [place] [address] [place] [address] Miguelina Travis RN Test Results Social History Tobacco Use Types Packs/Day Years [...] encounter Miscellaneous Notes * Telephone Encounter - Miguelina Travis RN - 04/10/2024 3:17 PM CDT Spoke with patient to relay CT scan results. Patient verbalized understanding and stated no questions. documented in this encounter Plan of Treatment Not on file documented as of this encounter Visit Diagnoses Not on filedocumented in this encounter Care Teams Residency Director Relationship Specialty Start Date End Date Liliana May MD [address] [place] [address] PCP - General Family Medicine 01/01/21 Moose Singleton MD [address] [place] [address] Consulting Physician Otolaryngology 09/27/21 documented as of this encounter
--- OUTSIDE RECORDS SUMMARY | 2024-08-08 21:29 | XMS_ITS | Encounter Summary ---
Author Organization [facility] Address [address] [place] [address] Phone Care Team Providers Care Ruching Machine Operator Name Role Phone Liliana May MD Primary Care Provider Moose Singleton MD Unavailable [phone] Reason for Referral * MRI/CAT/PET Scan (Routine) - Closed Specialty Diagnoses / Procedures Referred By Johanna t Referred To Contact Radiology Diagnoses 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) Head and neck cancer (HCC) Procedures CT Chest W Contrast CT Neck Chest W Contrast Jeny Wagner PA [address] [facility] [address] [place] [address] Phone: tel: fax: [address] [address] Referral ID Status Reason Start Date Expiration Date Visits Re quested Visits Authorized [id number] Closed 11/29/2022 12/29/2023 1 1 Reason for Visit * Reason Comments Follow-up Cancer of floor of m outh Encounter Details Date Type Department Care Team (Late st Contact Info) Description 11/29/2022 1:00 PM CDT Office Visit [place] [facility]) - [facility] ENT [address] Advanced [facility] 11th [place] [address] [place] [address] Jeny Wagner PA [address] [facility] [address] [place] [address] 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) (Primary Dx); Head and neck cancer (HCC) Social History Tobacco Use Types Packs/Day Years Used Date Smoking Tobacco: Former Cigarettes 0.4 57 S tarted: 1968 Smokeless Tobacco: Never Tobacco Cessation:Counseling Given: Not Answered Alcohol Use Standard Drinks/Week Comments Not Currently [...] - Inhaled Oxygen Concentration - - Weight 75.6 kg (166 lb 9.6 oz) 11/29/2022 12:09 PM CDT Height 182.9 cm (6') 11/29/2022 12:09 PM CDT Body Mass Index 22.6 11/29/2022 12:09 PM CDT documented in this encounter Progress Notes * Jeny Wagner PA - 11/29/2022 1:00 PM CDT [facility] ([facility]) - [facility] ENT [address] [facility] [address] [place] [address] [place] [address] Chilo Cross 1950 Transition: Dr. Singleton Chief Complaint: Cancer surveillance; 3 month follow up Oncology History- Surgery FOM (cancer of floor of mouth) ([facility]) Surgery DIAGNOSIS/TREATMENT/COMPLETION DATE: 1. 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 Cross presents today for interval evaluation of his previously treated floor of mouth cancer. Patient reports he has been doing well and has no new concerns regarding his head and neck area. Patient is eating well with no new swallowing problems and denies neck masses, pain, oral lesions, and voice changes. Patient sees his PCP and dentist regularly and is up to date with his age appropriate cancer screening. No significant changes to his medical, surgical, or personal health history since last visit with Dr. Singleton in August 2022. Physical Exam Constitutional: Vitals: 11/29/22 1209 Weight: 75.6 kg (166 lb 9.6 oz) Height: 182.9 cm (6') General Appearance: Well-developed, well-nourished male in no apparent distress. Voice is strong and breathing is normal Head and Face: Normocephalic, atraumatic. No facial skin lesions. Face is symmetric Neurologic: Facial and hypoglossal nerves intact bilaterally. Affect is normal. Eyes: Extraocular muscles are intact. Ears: External ears have no lesions. Hearing grossly intact Nose: External nose has no lesions. Oral Cavity/Oropharynx: No trismus. Mostly dentulous. No visible lesions. Tongue protrudes midline,palate elevates symmetrically. Floor of mouth is pink and soft. Stable surgical changes. No palpable abnormalities of the floor of mouth, oral tongue or base of tongue. Hypopharynx/Larynx- IDL/Mirror: Base of tongue and larynx are normal. Bilateral vocal cords are mobile. Neck: No evidence of lymphadenopathy, masses or tenderness. The salivary gland examination is normal bilaterally. No palpable abnormalities of the thyroid gland. Musculoskeletal: Ambulates without difficulty and neck range of motion intact. Results Reviewed: Imaging Studies: CT report of the neck dated 11/29/22 was personally reviewed, showing the following: IMPRESSION: 1. No definitive evidence of residual/recurrent enhancing mass or suspicious cervical lymphadenopathy. Streak artifact from multiple dental replacements limit evaluation of floor of mouth. 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 Patient continues to do well functionally and has no evidence of disease on today's exam. Plan: Problem List Hematology and Neoplasia 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) - Primary Overview NAME OF PROCEDURE (Mani 10/09/2021): Composite resection (ventral tongue, FOM, and marginal mandibulectomy) Relevant Orders CT Neck Chest W Contrast Continue surveillance, follow up with Dr. Singleton in 4 months with neck/chest CT ASHLEY Rai documented in this encounter Plan of Treatment Not on file documented as of this encounter Results * CT Chest W Contrast (04/18/2023 1:06 PM CDT) Anatomical Region Laterality Modality Body N/A Computed Tomogra phy 04/18/2023 1:18 PM CDT Impressions 04/18/2023 1:18 PM CDT 1. ??Unchanged pulmonary nodules, probably benign. ??No new pulmonary nodules. Electronically signed by: Augie Reese M.D. Narrative 04/18/2023 1:18 PM CDT EXAMINATION: CT CHEST W CONTRAST HISTORY: Squamous cell carcinoma TECHNIQUE: ??Transaxial computed tomographic images of the chest ??were obtained with intravenous contrast according to the standard protocol after the uneventful administration of 20 mL Opti-Ray 350 intravenous contrast. COMPARISON: 08/16/2022 FINDINGS: ?? No pneumothorax or effusion. ??Severe centrilobular and paraseptal apical prominent emphysema. ??There is biapical pleural proximal scarring, worse on the right, unchanged from previous examination. 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 ??Unchanged 6 mm left lower lobe pulmonary nodule with tiny punctate calcification (image 133). ??No new pulmonary nodules. There is no axillary supraclavicular mediastinal or hilar adenopathy. The heart size normal. ??There is no pericardial effusion. There is is portions the abdomen demonstrate extensive atherosclerosis. ??Renal scarring may represent prior urinary tract infection. Bone windows demonstrate no suspicious lytic or blastic lesions. Procedure Note Augie Reese MD PhD - 04/18/2023 EXAMINATION: CT CHEST W CONTRAST HISTORY: Squamous cell carcinoma TECHNIQUE: Transaxial computed tomographic images of the chest were obtained with intravenous contrast according to the standard protocol after the uneventful administration of 20 mL Opti-Ray 350 intravenous contrast. COMPARISON: 08/16/2022 FINDINGS: No pneumothorax or effusion. Severe centrilobular and paraseptal apical prominent emphysema. There is biapical pleural proximal scarring, worse on the right, unchanged from previous examination. 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 Unchanged 6 mm left lower lobe pulmonary nodule with tiny punctate calcification (image 133). No new pulmonary nodules. There is no axillary supraclavicular mediastinal or hilar adenopathy. The heart size normal. There is no pericardial effusion. There is is portions the abdomen demonstrate extensive atherosclerosis. Renal scarring may represent prior urinary tract infection. Bone windows demonstrate no suspicious lytic or blastic lesions. IMPRESSION: 1. Unchanged pulmonary nodules, probably benign. No new pulmonary nodules. Electronically signed by: Augie Reese M.D. Jeny RAMIREZ IMG CT PROCEDURES Final Result documented in this encounter Visit Diagnoses Diagnosis 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)- Primary Malignant neoplasm of floor of mouth, part unspecified Head and neck cancer (HCC) 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) Malignant neoplasm of floor of mouth, part unspecified Head and neck cancer (HCC) documented in this encounter Discontinued Medications Medication Sig Discontinue Reason Start Date End Da te clopidogreL (PLAVIX) 75 mg tablet Take 1 tablet (75 mg total) by mouth every morning 10/28/2021 11/29/2022 famotidine (PEPCID) 40 mg tablet 08/04/2022 11/29/2022 documented as of this encounter Historical Medications * This list may reflect changes made after this encounter. Medication Sig Dispense Quantity Refills Last Filled Start D ate End Date omeprazole (PriLOSEC) 40 mg capsule 09/14/2022 pravastatin (PRAVACHOL) 10 mg tablet 09/06/2022 04/02/2024 added in this encounter Care Teams Ruching Machine Operator Relationship Specialty Start Date End Date Liliana May MD [address] [place] [address] PCP - General Family Medicine 01/01/21 Moose Singleton MD [address] [place] [address] Consulting Physician Otolaryngology 09/27/21 documented as of this encounter
--- OUTSIDE RECORDS SUMMARY | 2024-08-08 21:29 | XMS_ITS | Encounter Summary ---
Author Organization [facility] Address [address] [place] [address] Phone Care Team Providers Care Histology Specialist Name Role Phone Liliana May MD Primary Care Provider Moose Singleton MD Unavailable [phone] Reason for Referral * MRI/CAT/PET Scan (Routine) - Closed Specialty Diagnoses / Procedures Referred By Contac t Referred To Contact Radiology Diagnoses 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) Procedures CT Neck Soft Tissue W Contrast Moose Singleton MD [address] [place] [address] Phone: tel: fax: [facility] [address] [place] [address] Referral ID Status Reason Start Date Expiration Date Visits Re quested Visits Authorized [id number] Closed 04/18/2023 05/17/2024 1 1 Encounter Details Date Type Department Care Team (Late st Contact Info) Description 04/18/2023 Orders Only [place] [facility] ([facility]) - [facility] ENT [address] [facility] [place] for [facility] 11th [place] [address] [place] [address] Patrizia Pa, KIA FOAngie (cancer of floor of mouth) (HCC) (Primary Dx) Social History Tobacco Use Types Packs/Day Years Used Date Smoking Tobacco: Former Cigarettes 0.4 57 S tarted: 1967 Smokeless Tobacco: Never Alcohol Use Standard Drinks/Week [...] as of this encounter Results * CT Neck Soft Tissue W Contrast (04/02/2024 1:22 PM CDT) Anatomical Region Laterality Modality Head and Neck N/A Computed Tomogra phy 04/02/2024 4:35 PM CDT Impressions 04/02/2024 6:25 PM CDT Stable postsurgical changes of floor of mouth surgical resection and partial mandibulectomy for removal of mass. ??The residual 12 mm focus of heterogeneously enhancing soft tissue within the mandibular resection bed is unchanged. ??Recommend correlation with direct visualization. ??No cervical lymphadenopathy. Dictated by: Ryan Kaiser M.D. The radiology attending physician has personally reviewed this study, and had reviewed and/or edited this written report and agrees with it. Electronically signed by: Fay Daly M.D. 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 TECHNIQUE: CT of the neck was performed according to the standard protocol with intravenous contrast. Contrast information: 69 mL Optiray-350 COMPARISON: CT dated 04/18/2023, 11/29/2022, and 09/28/2021 FINDINGS: Streak artifacts from dental restorations limit evaluation of the floor the mouth and adjacent tissues. ??Redemonstrated are postsurgical changes related to surgical resection of the floor the mouth for removal of a mass. ??A 12 mm focus of heterogeneously enhancing soft tissue within the mandibular resection bed is unchanged when compared to 04/18/2023. Scattered subcentimeter lymph nodes are seen in the neck. None are pathologically enlarged or abnormally enhancing. The muscles of the neck are normal. Unchanged mild atherosclerotic calcification of the right carotid bulb. Fascial planes are preserved and the deep spaces of the neck are normal. The visualized airway is widely patent. The base of the skull and the temporal bones are normal. Limited views of the brain including the cerebellum and brainstem are normal. The limited view of the [place] is unremarkable. Right lens replacement. ??Mucous retention cyst in the left maxillary sinus. Unchanged multilevel degenerative disc disease of the cervical spine most prominent and severe at C5-C6 with resultant severe bilateral neuroforaminal stenosis and mild spinal canal stenosis. Limited examination of the superior thorax shows diffuse emphysematous changes. ??There is an unchanged 2 cm right upper lobe partially calcified nodule. ??There is an unchanged 8 mm calcified right thyroid nodule. 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 TECHNIQUE: CT of the neck was performed according to the standard protocol with intravenous contrast. Contrast information: 69 mL Optiray-350 COMPARISON: CT dated 04/18/2023, 11/29/2022, and 09/28/2021 FINDINGS: Streak artifacts from dental restorations limit evaluation of the floor the mouth and adjacent tissues. Redemonstrated are postsurgical changes related to surgical resection of the floor the mouth for removal of a mass. A 12 mm focus of heterogeneously enhancing soft tissue within the mandibular resection bed is unchanged when compared to 04/18/2023. Scattered subcentimeter lymph nodes are seen in the neck. None are pathologically enlarged or abnormally enhancing. The muscles of the neck are normal. Unchanged mild atherosclerotic calcification of the right carotid bulb. Fascial planes are preserved and the deep spaces of the neck are normal. The visualized airway is widely patent. The base of the skull and the temporal bones are normal. Limited views of the brain including the cerebellum and brainstem are normal. The limited view of the [place] is unremarkable. Right lens replacement. Mucous retention cyst in the left maxillary sinus. Unchanged multilevel degenerative disc disease of the cervical spine most prominent and severe at C5-C6 with resultant severe bilateral neuroforaminal stenosis and mild spinal canal stenosis. Limited examination of the superior thorax shows diffuse emphysematous changes. There is an unchanged 2 cm right upper lobe partially calcified nodule. There is an unchanged 8 mm calcified right thyroid nodule. IMPRESSION: Stable postsurgical changes of floor of mouth surgical resection and partial mandibulectomy for removal of mass. The residual 12 mm focus of heterogeneously enhancing soft tissue within the mandibular resection bed is unchanged. Recommend correlation with direct visualization. No cervical lymphadenopathy. Dictated by: Ryan Kaiser M.D. The radiology attending physician has personally reviewed this study, and had reviewed and/or edited this written report and agrees with it. Electronically signed by: Fay Daly M.D. Moose Singleton MD IMG CT PROCEDURES Ernestine l Result documented in this encounter Visit Diagnoses Diagnosis 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)- Primary Malignant neoplasm of floor of mouth, part unspecified 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) Malignant neoplasm of floor of mouth, part unspecified documented in this encounter Care Teams Histology Specialist Relationship Specialty Start Date End Date Liliana May MD [address] [place] [address] PCP - General Family Medicine 01/01/21 Moose Singleton MD [address] [place] [address] Consulting Physician Otolaryngology 09/27/21 documented as of this encounter
--- OUTSIDE RECORDS SUMMARY | 2024-08-08 21:29 | XMS_ITS ---
Author Organization [facility] [address] Address [address] [place] [address] Care Team Providers Care Glass Handler Name Role Phone Liliana May MD Primary Care Provider Moose Singleton MD Unavailable [phone] Active Problems Problem Noted Date Diagnosed Date Oral bleeding 10/16/2021 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 Overview (10/22/2021): NAME OF PROCEDURE (Mani 10/09/2021): Composite resection (ventral tongue, FOM, and marginal mandibulectomy) Current Oncology Plans No current plan information found. Past Plans No past plan information found. Radiation Treatments * No radiation treatments are documented for this patient in [facility]. Treatments may have been administered in another system. Lifetime Dose Tracking * Chemical Lifetime Dose Automatic Entry Manual Entr y DLP 3,487 mGycm 3,487 mGycm 0 mGycm
--- OUTSIDE RECORDS SUMMARY | 2024-08-08 21:29 | XMS_ITS | Encounter Summary ---
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) Head and neck cancer (HCC) Procedures CT Neck Soft Tissue W Contrast Jeny Wagner PA [address] [place] [id number] Phone: tel: fax: [address] [phone] Referral ID Status Reason Start Date Expiration Date Visits Re quested Visits Authorized [id number] Closed 04/15/2023 05/14/2024 1 1 * MRI/CAT/PET Scan (Routine) - Closed Specialty Diagnoses / Procedures Referred By Contac t Referred To Contact Radiology Diagnoses 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) Head and neck cancer (HCC) Procedures CT Chest W Contrast CT Neck Chest W Contrast Jeny Wagner PA [address] [place] [address] [place] [phone] Phone: tel: fax: [address] [phone] Referral ID Status Reason Start Date Expiration Date Visits Re quested Visits Authorized [id number] Closed 11/29/2022 12/29/2023 1 1 Reason for Visit * MRI/CAT/PET Scan (Routine) - Closed Specialty Diagnoses / Procedures Referred By Johanna t Referred To Contact Radiology Diagnoses 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) Head and neck cancer (HCC) Procedures CT Chest W Contrast CT Neck Chest W Contrast Jeny Wagner PA [address] [facility] [address] [place] [address] Phone: tel: fax: [address] [phone] Referral ID Status Reason Start Date Expiration Date Visits Re quested Visits Authorized [id number] Closed 11/29/2022 12/29/2023 1 1 Encounter Details Date Type Department Care Team (Latest Contact Info) Description 04/18/2023 12:08 PM CDT - 04/18/2023 11:59 PM CDT Hospital Encounter [facility] [address] [place] [address] 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); Head and neck cancer (HCC) Discharge Disposition: Discharge to home or self care Social History Tobacco Use Types Packs/Day Years [...] on file documented as of this encounter Medications at Time of Discharge albuterol sulfate (PROAIR HFA INHAL) as needed 01/21/2008 benzonatate (TESSALON) 200 mg capsuleIndications :Cough Take 200 mg by mouth as needed 06/24/2021 calcium carbonate/vitamin D3 (CALCIUM 500 + D, D3, ORAL) Take by mouth every morning cetirizine (ZyrTEC) 10 mg tablet Take 10 mg by mouth as needed for allergies Eliquis 5 mg tabletIndications: atrial fibrillation Take 1 tablet (5 mg total) by mouth 2 (two) times a day 10/24/2021 fluticasone-umecli din-vilanter (Trelegy Ellipta) 100-62.5-25 mcg inhaler Inhale 1 puff every morning 01/21/2008 losartan (COZAAR) 25 mg tablet Take 25 mg by mouth every morning 06/27/2021 metoprolol XL (TOPROL-XL) 25 mg extended release tablet 06/30/2022 omeprazole (PriLOSEC) 40 mg capsule 09/14/2022 tamsulosin (FLOMAX) 0.4 mg extended release capsule Take 0.4 mg by mouth every morning 07/28/2021 ipratropium-albute roL (DUO-NEB) 0.5-2.5 mg/3 mL nebulizer solutionIndication s:Chronic Obstructive Pulmonary Disease with Bronchospasms Take by nebulization every 6 (six) hours 04/02/20 24 pravastatin (PRAVACHOL) 10 mg tablet 09/06/2022 04/02/20 24 documented as of this encounter Discharge Disposition Disposition Code Departure Means Destination Discharge to home or self care documented in this encounter Plan of Treatment Not on file documented as of this encounter Procedures Procedure Name Priority Date/Time Associated Diagnosis Comments CT CHEST W CONTRAST Schedule Routine, Read Routine (OP Routine) 04/18/2023 1:06 PM CDT 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 A 12mm focus of enhancing soft tissue within the mandibular resection bed is slightly more prominent compared to 11/29/22, which may represent recurrence or evolving post-surgical change. Short-term follow up or correlation with tissue sampling can be considered. No cervical lymphadenopathy. Dictated by: Edelmira Bonilla MD The radiology attending physician has personally reviewed this study, and had reviewed and/or edited this written report and agrees with it. Electronically signed by: Lupis Andino M.D. 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 ??Negative surgical margins (nearest surgical margin <1 mm). TECHNIQUE: CT of the neck was performed according to the standard protocol with intravenous contrast. Contrast information: 120 mL Optiray-350 COMPARISON: Neck CT for 11/25/2022. FINDINGS: Beam hardening artifact related to multiple dental restorations limits evaluation of the floor of mouth and adjacent tissues. Postsurgical changes of floor of mouth surgical resection with marginal mandibulectomy involving a small portion of the alveolar ridge to the left of midline (series 2, image 45). ??A 12mm focus of enhancing soft tissue within the mandibular resection bed is slightly more prominent compared to 11/29/22 (series 2, image 41). No osseous erosions in the adjacent mandible. Scattered subcentimeter lymph nodes are seen in the neck. None are pathologically enlarged or abnormally enhancing. The muscles of the neck are normal. Mild atherosclerotic calcification of the right carotid bulb without significant luminal narrowing. Fascial planes are preserved and the deep spaces of the neck are normal. The visualized airway is widely patent. The base of the skull and the temporal bones are normal. ??Debris in the left external auditory canal, likely cerumen. Limited views of the brain including the cerebellum and brainstem are normal. Right lens replacement. ??Intracranial atherosclerotic calcifications. ??Left maxillary sinus mucus retention cyst. Unchanged multilevel cervical degenerative disc and joint disease, most pronounced and severe at C5-C6 where there is severe bilateral neuroforaminal stenosis and mild spinal canal stenosis. Limited examination of the superior thorax shows severe centrilobular emphysema. ??A 2 cm right upper lobe partially calcified nodule is unchanged compared to 08/16/2022. ??Unchanged 8 mm calcified right thyroid nodule. ??Please see the separate dictation for the dedicated same-day chest CT for further evaluation of findings in the chest. 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 Negative surgical margins (nearest surgical margin <1 mm). TECHNIQUE: CT of the neck was performed according to the standard protocol with intravenous contrast. Contrast information: 120 mL Optiray-350 COMPARISON: Neck CT for 11/25/2022. FINDINGS: Beam hardening artifact related to multiple dental restorations limits evaluation of the floor of mouth and adjacent tissues. Postsurgical changes of floor of mouth surgical resection with marginal mandibulectomy involving a small portion of the alveolar ridge to the left of midline (series 2, image 45). A 12mm focus of enhancing soft tissue within the mandibular resection bed is slightly more prominent compared to 11/29/22 (series 2, image 41). No osseous erosions in the adjacent mandible. Scattered subcentimeter lymph nodes are seen in the neck. None are pathologically enlarged or abnormally enhancing. The muscles of the neck are normal. Mild atherosclerotic calcification of the right carotid bulb without significant luminal narrowing. Fascial planes are preserved and the deep spaces of the neck are normal. The visualized airway is widely patent. The base of the skull and the temporal bones are normal. Debris in the left external auditory canal, likely cerumen. Limited views of the brain including the cerebellum and brainstem are normal. Right lens replacement. Intracranial atherosclerotic calcifications. Left maxillary sinus mucus retention cyst. Unchanged multilevel cervical degenerative disc and joint disease, most pronounced and severe at C5-C6 where there is severe bilateral neuroforaminal stenosis and mild spinal canal stenosis. Limited examination of the superior thorax shows severe centrilobular emphysema. A 2 cm right upper lobe partially calcified nodule is unchanged compared to 08/16/2022. Unchanged 8 mm calcified right thyroid nodule. Please see the separate dictation for the dedicated same-day chest CT for further evaluation of findings in the chest. IMPRESSION: Postsurgical changes of floor of mouth surgical resection with marginal mandibulectomy. A 12mm focus of enhancing soft tissue within the mandibular resection bed is slightly more prominent compared to 11/29/22, which may represent recurrence or evolving post-surgical change. Short-term follow up or correlation with tissue sampling can be considered. No cervical lymphadenopathy. Dictated by: Edelmira Bonilla MD The radiology attending physician has personally reviewed this study, and had reviewed and/or edited this written report and agrees with it. Electronically signed by: Lupis Andino M.D. Jeny RAMIREZ [facility] CT PROCEDURES Final Result * CT Chest W Contrast (04/18/2023 1:06 [...] signed by: Augie Reese M.D. 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) Malignant neoplasm of floor of mouth, part unspecified Head and neck cancer (HCC) documented in this encounter Administered Medications Inactive Administered Medications - up to 3 most recent administrations Medication Order MAR Action Action Date Dose Rate Site ioversoL (OPTIRAY 350) injection 100 mL 100 mL, intravenous, Once in imaging, contrast, Starting on Tue04/18/23 at 1256, For 1 dose Contrast Given 04/18/2023 12:58 PM CDT 100 mL ioversoL (OPTIRAY 350) injection 50 mL 50 mL, intravenous, Once in imaging, contrast, Starting on Tue04/18/23 at 1256, For 1 dose Contrast Given 04/18/2023 1:05 PM CDT 20 mL documented in this encounter Care Teams Dental Practice Manager Relationship Specialty Start Date End Date Liliana May MD [address] [place] [address] PCP - General Family Medicine 01/01/21 Moose Singleton MD [address] [place] [address] Consulting Physician Otolaryngology 09/27/21 documented as of this encounter
--- OUTSIDE RECORDS SUMMARY | 2024-08-08 21:29 | XMS_ITS | Encounter Summary ---
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) Procedures CT Neck Soft Tissue W Contrast Moose Singleton MD [address] [place] [address] Phone: tel: fax: [address] [phone] Referral ID Status Reason Start Date Expiration Date Visits Re quested Visits Authorized [id number] Closed 08/18/2022 09/17/2023 1 1 Reason for Visit * MRI/CAT/PET Scan (Routine) - Closed Specialty Diagnoses / Procedures Referred By Contac leanne Referred To Contact Radiology Diagnoses 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) Procedures CT Neck Soft Tissue W Contrast Moose Singleton MD [address] [place] [address] Phone: tel: fax: [address] [phone] Referral ID Status Reason Start Date Expiration Date Visits Re quested Visits Authorized [id number] Closed 08/18/2022 09/17/2023 1 1 Encounter Details Date Type Department Care Team (Latest Contact Info) Description 11/29/2022 10:59 AM CDT - 11/29/2022 11:59 PM CDT Hospital Encounter [facility] Radiology [address] [place] [address] FOM (cancer of floor of mouth) ([facility]) Discharge Disposition: Discharge to home or self [...] by nebulization every 6 (six) hours 04/02/20 oxyCODONE (ROXICODONE) 5 mg immediate release tabletIndications: Pain Take 1 tablet (5 mg total) by mouth every 4 (four) hours as needed (intolerable pain) for up to 40 doses 40 tablet 10/11/2021 04/18/20 23 pravastatin (PRAVACHOL) 10 mg tablet 09/06/2022 04/02/20 24 documented as of this encounter Discharge Disposition Disposition Code Departure Means Destination Discharge to home or self care documented in this encounter Plan of Treatment Not on file documented as of this encounter Procedures Procedure Name Priority Date/Time Associated Diagnosis Comments CT SOFT TISSUE NECK W CONTRAST Schedule Routine, Read Routine (OP Routine) 11/29/2022 11:22 AM CDT 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 ??No definitive evidence of residual/recurrent enhancing mass or suspicious cervical lymphadenopathy. ??Streak artifact from multiple dental replacements limit evaluation of floor of mouth. Dictated by: Zachary Monsalve M.D. The radiology attending physician has personally reviewed this study, and had reviewed and/or edited this written report and agrees with it. Electronically signed by: Ninoska Pa M.D., Ph.D. Narrative 11/29/2022 12:01 PM CDT EXAMINATION: CT of the neck with contrast HISTORY: squamous carcinoma of floor of mouth which is status post composite resection 10/09/2021. ?? TECHNIQUE: CT of the neck was performed according to standard protocol after the uneventful administration of intravenous contrast. Contrast information: 75 mL Optiray-350 COMPARISON: CT examinations from 08/26/2022 and 05/17/2022 FINDINGS: Multiple dental replacements which limit evaluation of the floor of mouth. ??Small hypoattenuating defect in the floor of mouth which may represent postsurgical changes from prior resection. ??Scattered subcentimeter lymph nodes are seen in the neck. None are pathologically enlarged or abnormally enhancing. The muscles of the neck are normal. .Fascial planes are preserved and the deep spaces of the neck are normal. The visualized airway is widely patent. The base of the skull and the temporal bones are normal. Limited views of the brain including the cerebellum and brainstem are normal scattered calcifications of the thoracic aortic arch. ??Mural plaque in the great vessels with atherosclerotic burden most pronounced at the bilateral carotid bifurcations. No high grade stenosis. Scattered calcifications in the intracranial internal carotid arteries bilaterally within the petrous segments and the para clinoid/supraclinoid segments bilaterally. ??The visualized portions of the orbits are normal. ??Left maxillary sinus mucosal retention cyst. ??Right supraorbital achordon. ??Unchanged cystic subcutaneous lesion in the posterior lower neck soft tissues is most compatible with a sebaceous cyst. Right lens replacement. Spinal canal stenosis and bilateral neuroforaminal stenosis at C5-C6. Severe biapical emphysematous changes, essentially unchanged from prior examination. ??Unchanged appearance of calcified 1.1 cm nodule in the right thyroid lobe. ??Intervertebral disk heights are normal. Neural foramina are normal. Limited examination of the superior thorax shows no pulmonary infiltrate, suspicious nodules, or pleural effusions. Procedure Note Ninoska Pa MD PhD - 11/29/2022 EXAMINATION: CT of the neck with contrast HISTORY: squamous carcinoma of floor of mouth which is status post composite resection 10/09/2021. TECHNIQUE: CT of the neck was performed according to standard protocol after the uneventful administration of intravenous contrast. Contrast information: 75 mL Optiray-350 COMPARISON: CT examinations from 08/26/2022 and 05/17/2022 FINDINGS: Multiple dental replacements which limit evaluation of the floor of mouth. Small hypoattenuating defect in the floor of mouth which may represent postsurgical changes from prior resection. Scattered subcentimeter lymph nodes are seen in the neck. None are pathologically enlarged or abnormally enhancing. The muscles of the neck are normal. .Fascial planes are preserved and the deep spaces of the neck are normal. The visualized airway is widely patent. The base of the skull and the temporal bones are normal. Limited views of the brain including the cerebellum and brainstem are normal scattered calcifications of the thoracic aortic arch. Mural plaque in the great vessels with atherosclerotic burden most pronounced at the bilateral carotid bifurcations. No high grade stenosis. Scattered calcifications in the intracranial internal carotid arteries bilaterally within the petrous segments and the para clinoid/supraclinoid segments bilaterally. The visualized portions of the orbits are normal. Left maxillary sinus mucosal retention cyst. Right supraorbital achordon. Unchanged cystic subcutaneous lesion in the posterior lower neck soft tissues is most compatible with a sebaceous cyst. Right lens replacement. Spinal canal stenosis and bilateral neuroforaminal stenosis at C5-C6. Severe biapical emphysematous changes, essentially unchanged from prior examination. Unchanged appearance of calcified 1.1 cm nodule in the right thyroid lobe. Intervertebral disk heights are normal. Neural foramina are normal. Limited examination of the superior thorax shows no pulmonary infiltrate, suspicious nodules, or pleural effusions. IMPRESSION: 1. No definitive evidence of residual/recurrent enhancing mass or suspicious cervical lymphadenopathy. Streak artifact from multiple dental replacements limit evaluation of floor of mouth. Dictated by: Zachary Monsalve M.D. The radiology attending physician has personally reviewed this study, and had reviewed and/or edited this written report and agrees with it. Electronically signed by: Ninoska Pa M.D., Ph.D. 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) Malignant neoplasm of floor of mouth, part unspecified documented in this encounter Administered Medications Inactive Administered Medications - up to 3 most recent administrations Medication Order MAR Action Action Date Dose Rate Site ioversoL (OPTIRAY 350) syringe 75 mL 75 mL, intravenous, Once in imaging, contrast, Starting on Tue11/29/22 at 1116, For 1 dose Contrast Given 11/29/2022 11:22 AM CDT 75 mL documented in this encounter Orders Medications Ordered That José Manuel ht Not Have Been Administered Count Last Ordered Date First Ordered Date ioversoL (OPTIRAY 350) syringe 75 mL 1 11/07 documented in this encounter Care Teams Changer Fixer Relationship Specialty Start Date End Date Liliana May MD [address] [place] [address] PCP - General Family Medicine 01/01/21 Moose Singleton MD [address] [place] [address] Consulting Physician Otolaryngology 09/27/21 documented as of this encounter
--- OUTSIDE RECORDS SUMMARY | 2024-08-08 21:29 | XMS_ITS | Encounter Summary ---
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) Procedures CT Neck Soft Tissue W Contrast Moose Singleton MD [address] [place] [address] Phone: tel: fax: [address] [address] Referral ID Status Reason Start Date Expiration Date Visits Re quested Visits Authorized [id number] Closed 04/18/2023 05/17/2024 1 1 Reason for Visit * MRI/CAT/PET Scan (Routine) - Closed Specialty Diagnoses / Procedures Referred By Contac leanne Referred To Contact Radiology Diagnoses 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) Procedures CT Neck Soft Tissue W Contrast Moose Singleton MD [address] [place] [address] Phone: tel: fax: [address] [phone] Referral ID Status Reason Start Date Expiration Date Visits Re quested Visits Authorized [id number] Closed 04/18/2023 05/17/2024 1 1 Encounter Details Date Type Department Care Team (Latest Contact Info) Description 04/02/2024 12:41 PM CDT - 04/02/2024 11:59 PM CDT Hospital Encounter [facility] Radiology [address] [place] [address] FOM (cancer of floor of mouth) ([facility]) Discharge Disposition: Discharge to home or self [...] mg by mouth as needed for allergies dilTIAZem CD 240 mg 24 hr capsule 01/20/2024 Eliquis 5 mg tabletIndications: atrial fibrillation Take 1 tablet (5 mg total) by mouth 2 (two) times a day 10/24/2021 finasteride (PROSCAR) 5 mg tablet 12/26/2023 fluconazole (DIFLUCAN) 150 mg tablet 12/29/2023 fluticasone-umecli din-vilanter (Trelegy Ellipta) 100-62.5-25 mcg inhaler Inhale 1 puff every morning 01/21/2008 formoterol (PERFOROMIST) 20 mcg/2 mL nebulizer solution 12/29/2023 ipratropium (ATROVENT) 0.02 % nebulizer solution 02/22/2024 levoFLOXacin (LEVAQUIN) 750 mg tablet 12/27/2023 losartan (COZAAR) 25 mg tablet Take 25 mg by mouth every morning 06/27/2021 metoprolol XL (TOPROL-XL) 25 mg extended release tablet 06/30/2022 nystatin cream 12/29/2023 omeprazole (PriLOSEC) 40 mg capsule 09/14/2022 pravastatin (PRAVACHOL) 20 mg tablet 04/01/2024 tamsulosin (FLOMAX) 0.4 mg extended release capsule Take 0.4 mg by mouth every morning 07/28/2021 documented as of this encounter Discharge Disposition Disposition Code Departure Means Destination Discharge to home or self care documented in this encounter Plan of Treatment Not on file documented as of this encounter Procedures Procedure Name Priority Date/Time Associated Diagnosis Comments CT SOFT TISSUE NECK W CONTRAST Schedule Routine, Read Routine (OP Routine) 04/02/2024 1:22 PM CDT 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 The limited view of the [place] is unremarkable. Right lens replacement. [...] are normal. The limited view of the [place] is unremarkable. Right lens replacement. [...] by: Fay Daly M.D. Moose Singleton MD [facility] CT PROCEDURES Ernestine l Result documented in [...] intravenous, Once in imaging, contrast, Starting on 04/02/24 at 1318, For 1 dose Contrast Given 04/02/2024 1:19 PM CDT 69 mL documented in this encounter Orders Medications Ordered That José Manuel ht Not Have Been Administered Count Last Ordered Date First Ordered Date ioversoL (OPTIRAY 350) syringe 75 mL 1 03/09 documented in this encounter Care Teams Tail Dogger Relationship Specialty Start Date End Date Liliana May MD [address] [place] [address] PCP - General Family Medicine 01/01/21 Moose Singleton MD [address] [place] [address] Consulting Physician Otolaryngology 09/27/21 documented as of this encounter
--- OUTSIDE RECORDS SUMMARY | 2024-08-08 21:29 | XMS_ITS | Clinical Summary ---
Author Organization [facility] [address] Address [address] [place] [address] Care Team Providers Care Coremaker Bench Name Role Phone Liliana May MD Primary Care Provider Moose Singleton MD Unavailable [phone] Allergies Active Allergy Reactions Criticality Noted Date Comments Lisinopril Cough Low 01/27/2021 Sulfa (Sulfonamide Antibiotics) Shortness of breath High 01/27/2021 Medications benzonatate (TESSALON) 200 mg capsuleIndication s:Cough Take 200 mg by mouth as needed 1 Active losartan (COZAAR) 25 mg tablet Take 25 mg by mouth every morning 1 Active tamsulosin (FLOMAX) 0.4 mg extended release capsule Take 0.4 mg by mouth every morning 1 Active albuterol sulfate (PROAIR HFA INHAL) as needed 8 Active fluticasone-umecl idin-vilanter (Trelegy Ellipta) 100-62.5-25 mcg inhaler Inhale 1 puff every morning 8 Active cetirizine (ZyrTEC) 10 mg tablet Take 10 mg by mouth as needed for allergies Active calcium carbonate/vitamin D3 (CALCIUM 500 + D, D3, ORAL) Take by mouth every morning Active Eliquis 5 mg tabletIndications :atrial fibrillation Take 1 tablet (5 mg total) by mouth 2 (two) times a day 2 Active metoprolol XL (TOPROL-XL) 25 mg extended release tablet 2 Active omeprazole (PriLOSEC) 40 mg capsule 3 Active dilTIAZem CD 240 mg 24 hr capsule 4 Active finasteride (PROSCAR) 5 mg tablet 4 Active fluconazole (DIFLUCAN) 150 mg tablet 4 Active formoterol (PERFOROMIST) 20 mcg/2 mL nebulizer solution 4 Active ipratropium (ATROVENT) 0.02 % nebulizer solution 4 Active levoFLOXacin (LEVAQUIN) 750 mg tablet 4 Active nystatin cream 4 Active pravastatin (PRAVACHOL) 20 mg tablet 4 Active Active Problems Problem Noted Date Diagnosed Date Oral bleeding 10/16/2021 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 Overview (10/22/2021): NAME OF PROCEDURE (Puram 10/09/2021): Composite resection (ventral tongue, FOM, and marginal mandibulectomy) Immunizations Name Administration Dates Next Due Influenza, Unspecified 05/14/2021 Chuck (J&J) SARS-CoV-2 Vaccination 11/10/2020 Surgical History Surgery Date Site/Laterality Comments CARDIAC STENT PLACEMENT VASECTOMY BRONCHOSCOPY COLONOSCOPY Medical History Medical History Date Comments CAD (coronary artery disease) COPD (chronic obstructive pulmonary disease) (HC C) HTN (hypertension) Atrial fibrillation (CMS/HCC) (HCC) Pulmonary hypertension (HCC) Ejection fraction < 50% CHF (congestive heart failure) (CMS/HCC) (HCC) 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 HL (hearing loss) GERD (gastroesophageal reflux disease) Cancer (CMS/HCC) (HCC) Family History Medical History Relation Name Comments Cancer Mother Della Aponte Anesthesia problems Neg Hx Relation Name Status Comments Mother Della Aponte Social History Tobacco Use Types Packs/Day Years [...] on file Sexual Orientation Not on file Obstetrics History Last Filed Vital Signs Vital Sign Reading Time Taken Comments Blood Pressure 120/66 10/18/2021 7:00 AM CDT Pulse 66 10/18/2021 7:00 AM CDT Temperature 36.7 ??C (98.1 ??F) 10/18/2021 7:00 AM CD T Respiratory Rate 20 10/18/2021 7:00 AM CDT Oxygen Saturation 96% 10/18/2021 9:00 AM CDT Inhaled Oxygen Concentration - - Weight 75.3 kg (166 lb) 04/02/2024 2:03 PM CDT Height 182.9 cm (6') 04/02/2024 2:03 PM CDT Body Mass Index 22.51 04/02/2024 2:03 PM CDT Plan of Treatment Health Maintenance Due Date Last Done Comments Colon Cancer Screening-Colonoscopy 1950 Depression Screening 1950 Fall Risk Assessment 1950 Hepatitis C Screening 1950 Hepatitis B Screening 01/27/1970 Well Visit 65+ 01/27/2017 Covid-19 Vaccine (2023-2 5 season) 2024 07/15/2021, 11/10/2020 Influenza Vaccine (#1) 2024 , 05/14/2021, 05/05/2020, Additional history exists DTaP/Tdap/Td Vaccine (2 - Td or Tdap) 03/02/2026 03/02/2016 Pneumococcal vaccine 65+ Completed 02/28/2018, 12/07 Zoster Vaccine Completed 05/06/2018, 02/28/2018 Abdominal Aortic Aneurysm (A AA) Screen Completed 10/01/2021 Medical Devices Implanted Type Area Signal Mechanic Device Identifier Shelf Expiration Date Model / Serial / Lot Stent N/A: Heart Procedures Procedure Name Priority Date/Time Associated Diagnosis Comments CTA ABDOMINAL AORTA AND BILATERAL ILIOFEMORAL RUNOFF Schedule Routine, Read Routine (OP Routine) 10/01/2021 10:38 AM CARDIAC CATHETERIZATION TECHNOLOGIST 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) (HCC) from Last 3 Months or Most Recently Relevant to Health Maintenance Results * CTA Abdominal Aorta And Bilateral Iliofemoral Runoff (10/01/2021 10:38 AM CARDIAC CATHETERIZATION TECHNOLOGIST) Anatomical Region Laterality Modality Body Bilateral Computed Tomogra phy 10/01/2021 11:2 6 AM CARDIAC CATHETERIZATION TECHNOLOGIST Impressions 10/01/2021 2:02 PM CARDIAC CATHETERIZATION TECHNOLOGIST 1. ??Right lower extremity: There is three-vessel runoff to the right ankle, with multifocal mild-moderate narrowing throughout the right lower extremity, with a single focus of severe narrowing at the distal right superficial femoral artery. ?? 2. ??Left lower extremity: Multifocal predominant mild narrowing throughout the left lower extremity with the exception of focal moderate stenosis of the superficial femoral artery with three-vessel runoff at the ankle. The left dorsalis pedis artery is diminutive. 3. 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 4 Right heart enlargement with reflux of contrast into the hepatic veins, compatible with right heart failure. Dictated by: Kofi Banda M.D. The radiology attending physician has personally reviewed this study, and had reviewed and/or edited this written report and agrees with it. Electronically signed by: Samson Toro M.D. 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 TECHNIQUE: CT angiography of the abdomen, pelvis, and lower extremities was performed following the uneventful intravenous administration of 117 ml Optiray-350. Vascular 3D images were generated on a dedicated workstation and also reviewed. FINDINGS: No prior studies are available for comparison. VASCULAR FINDINGS: Abdominal Aorta and Branches: Celiac axis: no significant stenosis SMA: no significant stenosis JEMMA: Moderate stenosis at the origin. Right renal vessels: no significant stenosis Left renal vessels: no significant stenosis Infrarenal aorta: There is severe mixed calcified and noncalcified atherosclerotic involvement of the infrarenal abdominal aorta. ??No significant stenosis. No aneurysm. Pelvic Vessels: R. Common iliac artery: ??Mild narrowing secondary to atherosclerotic disease. R. External iliac artery: ??Multifocal moderate narrowing secondary to atherosclerotic disease. R. Internal iliac artery: ??no significant stenosis L. Common iliac artery: ??Mild narrowing secondary to atherosclerotic disease. ??There is a either a fibrin or short segment focal dissection flap at the bifurcation of the common iliac artery. L. External iliac artery: ??Multifocal mild-moderate narrowing secondary to have sclerotic disease. L. Internal iliac artery: ??Severe narrowing at the origin due to atherosclerotic involvement. Right Lower Extremity: R. Common femoral artery: ??no significant stenosis R. Profunda femoris artery: ??Mild narrowing at the origin. R. Superficial femoral artery: ??Multifocal mild-moderate narrowing throughout the vessel, with focal severe narrowing in the distal vessel (series 4, image 524). R. Popliteal artery: ??no significant stenosis R. Anterior tibial artery: ??no significant stenosis R. Tibioperoneal trunk: ??Moderate-severe narrowing at the origin, just be on the anterior tibial artery takeoff (series 4, image 46). R. Posterior tibial artery: ??no significant stenosis R. Peroneal artery: ??no significant stenosis R. Dorsalis pedis artery: ??no significant stenosis R. Plantar artery: ??no significant stenosis Left Lower Extremity: L. Common femoral artery: ??no significant stenosis L. Profunda femoris artery: ??Mild narrowing at the origin. L. Superficial femoral artery: ??Mild multifocal narrowing throughout the vessel. L. Popliteal artery: ??no significant stenosis L. Anterior tibial artery: ??no significant stenosis L. Tibioperoneal trunk: ??no significant stenosis L. Posterior tibial artery: ??no significant stenosis L. Peroneal artery: ??no significant stenosis L. Dorsalis pedis artery: ??Diminutive L. Plantar artery: ??no significant stenosis NON-VASCULAR FINDINGS: Emphysematous changes are noted within the medial right lung base. The visualized lung bases are otherwise clear. ??The right heart is enlarged. ??No pericardial effusion. There is reflux of contrast into the IVC and hepatic veins. No focal hepatic lesions are appreciated. ??Heterogeneous enhancement within the inferior right hemiliver likely represents vascular shunting. ??No biliary ductal dilatation. ??The gallbladder appears normal. ??There is bilateral adrenal gland thickening. ??Spleen and pancreas appear normal. ??Simple right renal cyst is redemonstrated. ??There is mild multifocal renal cortical scarring. ??No hydronephrosis or nephrolithiasis. ??The urinary bladder is grossly normal. ??The prostate gland is moderately enlarged in size. ??A surgical changes of vasectomy are noted. There is sigmoid diverticulosis without findings of diverticulitis. The stomach, small bowel, and colon are normal in course and caliber without focal wall thickening or evidence of obstruction. ??The appendix is normal. ??No free intraperitoneal fluid or gas. ??No abdominopelvic lymphadenopathy. Bone windows demonstrate no suspicious osseous lesions. ??Multilevel degenerative disc disease is noted throughout the lumbar spine. There is severe bilateral hip osteoarthritis. 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 TECHNIQUE: CT angiography of the abdomen, pelvis, and lower extremities was performed following the uneventful intravenous administration of 117 ml Optiray-350. Vascular 3D images were generated on a dedicated workstation and also reviewed. FINDINGS: No prior studies are available for comparison. VASCULAR FINDINGS: Abdominal Aorta and Branches: Celiac axis: no significant stenosis SMA: no significant stenosis JEMMA: Moderate stenosis at the origin. Right renal vessels: no significant stenosis Left renal vessels: no significant stenosis Infrarenal aorta: There is severe mixed calcified and noncalcified atherosclerotic involvement of the infrarenal abdominal aorta. No significant stenosis. No aneurysm. Pelvic Vessels: R. Common iliac artery: Mild narrowing secondary to atherosclerotic disease. R. External iliac artery: Multifocal moderate narrowing secondary to atherosclerotic disease. R. Internal iliac artery: no significant stenosis L. Common iliac artery: Mild narrowing secondary to atherosclerotic disease. There is a either a fibrin or short segment focal dissection flap at the bifurcation of the common iliac artery. L. External iliac artery: Multifocal mild-moderate narrowing secondary to have sclerotic disease. L. Internal iliac artery: Severe narrowing at the origin due to atherosclerotic involvement. Right Lower Extremity: R. Common femoral artery: no significant stenosis R. Profunda femoris artery: Mild narrowing at the origin. R. Superficial femoral artery: Multifocal mild-moderate narrowing throughout the vessel, with focal severe narrowing in the distal vessel (series 4, image 524). R. Popliteal artery: no significant stenosis R. Anterior tibial artery: no significant stenosis R. Tibioperoneal trunk: Moderate-severe narrowing at the origin, just be on the anterior tibial artery takeoff (series 4, image 46). R. Posterior tibial artery: no significant stenosis R. Peroneal artery: no significant stenosis R. Dorsalis pedis artery: no significant stenosis R. Plantar artery: no significant stenosis Left Lower Extremity: L. Common femoral artery: no significant stenosis L. Profunda femoris artery: Mild narrowing at the origin. L. Superficial femoral artery: Mild multifocal narrowing throughout the vessel. L. Popliteal artery: no significant stenosis L. Anterior tibial artery: no significant stenosis L. Tibioperoneal trunk: no significant stenosis L. Posterior tibial artery: no significant stenosis L. Peroneal artery: no significant stenosis L. Dorsalis pedis artery: Diminutive L. Plantar artery: no significant stenosis NON-VASCULAR FINDINGS: Emphysematous changes are noted within the medial right lung base. The visualized lung bases are otherwise clear. The right heart is enlarged. No pericardial effusion. There is reflux of contrast into the IVC and hepatic veins. No focal hepatic lesions are appreciated. Heterogeneous enhancement within the inferior right hemiliver likely represents vascular shunting. No biliary ductal dilatation. The gallbladder appears normal. There is bilateral adrenal gland thickening. Spleen and pancreas appear normal. Simple right renal cyst is redemonstrated. There is mild multifocal renal cortical scarring. No hydronephrosis or nephrolithiasis. The urinary bladder is grossly normal. The prostate gland is moderately enlarged in size. A surgical changes of vasectomy are noted. There is sigmoid diverticulosis without findings of diverticulitis. The stomach, small bowel, and colon are normal in course and caliber without focal wall thickening or evidence of obstruction. The appendix is normal. No free intraperitoneal fluid or gas. No abdominopelvic lymphadenopathy. Bone windows demonstrate no suspicious osseous lesions. Multilevel degenerative disc disease is noted throughout the lumbar spine. There is severe bilateral hip osteoarthritis. IMPRESSION: 1. Right lower extremity: There is three-vessel runoff to the right ankle, with multifocal mild-moderate narrowing throughout the right lower extremity, with a single focus of severe narrowing at the distal right superficial femoral artery. 2. Left lower extremity: Multifocal predominant mild narrowing throughout the left lower extremity with the exception of focal moderate stenosis of the superficial femoral artery with three-vessel runoff at the ankle. The left dorsalis pedis artery is diminutive. 3. 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 4 Right heart enlargement with reflux of contrast into the hepatic veins, compatible with right heart failure. Dictated by: Kofi Banda M.D. The radiology attending physician has personally reviewed this study, and had reviewed and/or edited this written report and agrees with it. Electronically signed by: Samson Toro M.D. Moose Cornelio Singleton MD IMG CT PROCEDURES Ernestine l Result from Last 3 Months or Most Recently Relevant to Health Maintenance Insurance MEDICARE [employer] MEDICARE [facility] FOR LIFE MEDICARE FOR LIFE Advance Directives For more information, please contact: [phone] * Full Code (Latest Code Status on File) Date Activated Date Inactivated Comments 10/16/2021 7:39 PM 10/18/2021 2:11 PM * Full Code Date Activated Date Inactivated Comments 10/09/2021 4:36 PM 10/11/2021 8:52 PM Care Teams Coremaker Bench Relationship Specialty Start Date End Date Liliana May MD [address] [place] [address] PCP - General Family Medicine 01/01/21 Moose Singleton MD [address] [place] [address] Consulting Physician Otolaryngology 09/27/21
--- OUTSIDE RECORDS SUMMARY | 2024-08-08 21:29 | XMS_ITS | Referral Summary ---
Author Organization [facility] [address] Address [address] [place] [address] Care Team Providers Care Gasket Notcher Name Role Phone Liliana May MD Primary Care Provider Moose Singleton MD Unavailable [phone] Allergies Active Allergy Reactions Criticality Noted Date [...] Unspecified 05/14/2021 Chuck (J&J) SARS-CoV-2 Vaccination 11/10/2020 Social History Tobacco Use Types Packs/Day Years [...] on file Sexual Orientation Not on file Last Filed Vital Signs Vital Sign Reading [...] 04/02/2024 2:03 PM CDT Plan of Treatment Not on file Medical Devices Implanted Type Area Special Certificate Dictator Device Identifier Shelf Expiration Date Model / Serial / Lot Stent N/A: Heart Procedures Procedure Name Priority Date/Time Associated Diagnosis Comments CTA ABDOMINAL AORTA AND BILATERAL ILIOFEMORAL RUNOFF Schedule Routine, Read Routine (OP Routine) 10/01/2021 10:38 AM FAN BALANCER FOM (cancer of floor of mouth) ([facility]/HCC) ([facility]) from Last 3 Months or Most Recently Relevant to Health Maintenance Results * CTA Abdominal Aorta And Bilateral Iliofemoral Runoff (10/01/2021 10:38 AM FAN BALANCER) Anatomical Region Laterality Modality Body Bilateral Computed Tomogra phy 10/01/2021 11:2 6 AM FAN BALANCER Impressions 10/01/2021 2:02 PM FAN BALANCER 1. ??Right lower extremity: There is three-vessel [...] Samson Toro M.D. Narrative 10/01/2021 2:02 PM FAN BALANCER EXAMINATION: ??CT ANGIOGRAPHY OF THE ABDOMEN, PELVIS, [...] Electronically signed by: Samson Toro M.D. Moose Singleton MD IMG CT PROCEDURES Ernestine l Result from Last 3 Months or Most Recently Relevant to Health Maintenance Insurance MEDICARE FOR LIFE MEDICARE FOR LIFE MEDICARE [facility] FOR LIFE Advance Directives For more information, please contact: [phone] * Full Code (Latest Code Status on File) Date Activated Date Inactivated Comments 10/16/2021 7:39 PM 10/18/2021 2:11 PM * Full Code Date Activated Date Inactivated Comments 10/09/2021 4:36 PM 10/11/2021 8:52 PM Care Teams Gasket Notcher Relationship Specialty Start Date End Date Liliana May MD [address] [place] [address] PCP - General Family Medicine 01/01/21 Moose Singleton MD [address] [place] [address] Consulting Physician Otolaryngology 09/27/21
--- OUTSIDE RECORDS SUMMARY | 2024-08-08 21:29 | XMS_ITS | Encounter Summary ---
Author Organization [facility] Address [address] [place] [address] Phone Care Team Providers Care Hot Die Press Feeder Name Role Phone Liliana May MD Primary Care Provider Moose Singleton MD Unavailable [phone] Reason for Referral * MRI/CAT/PET Scan (Routine) - Closed Specialty Diagnoses / Procedures Referred By Contac t Referred To Contact Radiology Diagnoses 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) Procedures CT Neck Soft Tissue W Contrast Moose Singleton MD [address] [place] [address] Phone: tel: fax: [facility] [address] [place] [address] Referral ID Status Reason Start Date Expiration Date Visits Re quested Visits Authorized [id number] Closed 08/18/2022 09/17/2023 1 1 EL DINKEY OPERATOR Encounter Details Date Type Department Care Team (Late st Contact Info) Description 08/18/2022 Orders Only [facility] [address] [facility] 11th [place] [address] [place] [address] Moose Singleton MD [address] [place] [address] 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) (HCC) (Primary Dx) Social History Tobacco Use [...] Ninoska Pa M.D., Ph.D. 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
--- OUTSIDE RECORDS SUMMARY | 2024-08-08 21:29 | XMS_ITS | Encounter Summary ---
Author Organization [facility] Address [address] [place] [address] Care Team Providers Care Peanut Roaster Name Role Phone Unavailable Primary Care Provider Unavailabl e Encounter Details Date Type Department Care Team (Late st Contact Info) Description 06/20/2024 Abstract [facility] Pulmonology [facility] [address] [place] [id number] Salvador Ansari MD [address] [place] [address] Social History Tobacco Use Types Packs/Day Years Used Date Smoking Tobacco: Never Assessed Sex and Gender Information Value Date Recorded Sex Assigned at Male 07/05/2024 10:59 AM PER DIEM INTERPRETER Gender Identity Male 07/05/2024 10:59 AM PER DIEM INTERPRETER Sexual Orientation Straight 07/05/2024 10 :59 AM PER DIEM INTERPRETER documented as of this encounter Plan of Treatment Not on file documented as of this encounter Visit Diagnoses Not on filedocumented in this encounter
--- OUTSIDE RECORDS SUMMARY | 2024-08-08 21:29 | XMS_ITS | Encounter Summary ---
Author Organization [facility] Address [address] [place] [address] Care Team Providers Care Clinical Instructor Name Role Phone Unavailable Primary Care Provider Unavailabl e Reason for Visit * Reason Onset Date Comments Referral 06/26/2024 Encounter Details Date Type Department Care Team (Late st Contact Info) Description 06/26/2024 Telephone [facility] Pul[facility] [address] [place] [address] Salvador Ansari MD [address] [place] [address] Referral Social History Tobacco Use Types Packs/Day Years Used Date Smoking Tobacco: Never Assessed Sex and Gender Information Value Date Recorded Sex Assigned at Male 07/05/2024 10:59 AM SOCIAL INSURANCE ADMINISTRATOR Gender Identity Male 07/05/2024 10:59 AM SOCIAL INSURANCE ADMINISTRATOR Sexual Orientation Straight 07/05/2024 10 :59 AM SOCIAL INSURANCE ADMINISTRATOR documented as of this encounter Miscellaneous Notes * Telephone Encounter - Bety Dunham PCA - 07/04/2024 10:05 AM CST Patient scheduled. AL INSURANCE ADMINISTRATOR * Telephone Encounter - Josefina Ocampo RN - 07/04/2024 9:29 AM SOCIAL INSURANCE ADMINISTRATOR Pt called back and said if day and time on 07/12 still available, he can make it. Requests confirmation. AL INSURANCE ADMINISTRATOR * Telephone Encounter - Bety Dunham PCA - 07/03/2024 3:09 PM CST Patient already has an appt at that time. Is there a different day/time you would like to see him? *Also informed patient about getting records from previous engineering group leader. AL INSURANCE ADMINISTRATOR * Telephone Encounter - Salvador Ansari MD - 07/03/2024 1:37 PM CST Please schedule an office visit on 07/12/2024 at 10 AM. Please note, I do not see any outside records yet, we need to obtain previous pulmonary function testing, CT chest imaging and previous pulmonary consultative reports. CT chest imaging should be brought on a CD with him for his visit AL INSURANCE ADMINISTRATOR * Telephone Encounter - Shanae Anderson - 06/26/2024 11:50 AM CST Patient being referred for zephyr valve consult. Patient scheduled for first available in November. Records scanned into media. Would you like to see patient for an earlier appt or is first available ok? AL INSURANCE ADMINISTRATOR documented in this encounter Plan of Treatment Not on file documented as of this encounter Visit Diagnoses Not on filedocumented in this encounter
--- OUTSIDE RECORDS SUMMARY | 2024-08-08 21:29 | XMS_ITS | Encounter Summary ---
Author Organization [facility] Address [address] [place] [address] Care Team Providers Care Poultry Veterinarian Name Role Phone Unavailable Primary Care Provider Unavailabl e Reason for Referral * CT Scan (Urgent) - Open Specialty Diagnoses / Procedures Referred By Johanna perdomo Referred To Contact Diagnoses Centrilobular emphysema Procedures CT CHEST HIGH RESOLUTION CT CHEST HIGH RESOLUTION Salvador Ansari MD [address] [place] [address] Referral ID Status Reason Start Date Expiration Date Visits Re quested Visits Authorized [id number] Open 07/12/2024 08/12/2025 1 1 R TESTER * Respiratory (Routine) - Closed Specialty Diagnoses / Procedures Referred By Johanna t Referred To Contact Diagnoses Chronic obstructive pulmonary disease, unspecified COPD type Procedures PULSE OXIMETRY, WITH EXERCISE Salvador Ansari MD [address] [place] [address] Referral ID Status Reason Start Date Expiration Date Visits Re quested Visits Authorized [id number] Closed 07/12/2024 08/12/2025 1 1 R TESTER * Respiratory (Routine) - Authorized Specialty Diagnoses / Procedures Referred By Johanna t Referred To Contact Diagnoses Chronic obstructive pulmonary disease, unspecified COPD type Procedures PULMONARY FUNCTION TEST Salvador Ansari MD [address] [place] [address] [facility] Pulmonary Function [place] A [address] [place] [address] Referral ID Status Reason Start Date Expiration Date V isits Requested Visits Authorized [id number] Authorized 07/12/2024 08/12/2025 1 1 R TESTER Reason for Visit * Reason Comments Establish Care Encounter Details Date Type Department Care Team (Late st Contact Info) Description 07/12/2024 10:00 AM WATER TESTER Office Visit [facility] Pulmonology [facility] [address] [place] [address] Salvador Ansari MD [address] [place] [address] Chronic obstructive pulmonary disease, unspecified COPD type (Primary Dx); Centrilobular emphysema; Personal history of tobacco use; Preop pulmonary/respirator y exam; History of oral cancer Social History Tobacco Use Types Packs/Day Years Used Date Smoking Tobacco: Former Cigarettes Smokeless Tobacco: Never Sex and Gender Information Value Date Recorded Sex Assigned at Male 07/05/2024 10:59 AM WATER TESTER Gender Identity Male 07/05/2024 10:59 AM WATER TESTER Sexual Orientation Straight 07/05/2024 10 :59 AM WATER TESTER documented as of this encounter Last Filed Vital Signs Vital Sign Reading Time Taken Comments Blood Pressure 118/76 07/12/2024 10:06 AM WATER TESTER Pulse 83 07/12/2024 10:06 AM WATER TESTER Temperature - - Respiratory Rate - - Oxygen Saturation 97% 07/12/2024 10:06 AM WATER TESTER Inhaled Oxygen Concentration - - Weight 27.8 kg (61 lb 3.2 oz) 07/12/2024 10:06 A M WATER TESTER Height 182.9 cm (6') 07/12/2024 10:06 AM WATER TESTER Body Mass Index 8.3 07/12/2024 10:06 AM WATER TESTER documented in this encounter Progress Notes * Salvador Ansari MD - 07/12/2024 10:45 AM CST Pulmonary Initial Outpatient Evaluation 07/12/2024 10:46 AM Patient Name: Chilo Ji 1950 Primary Care Physician: No primary care provider on file. Date of Service: 07/12/2024 Chief Complaint Patient presents with Establish Care Impression: Chronic obstructive pulmonary disease, severity uncharacterized with centrilobular emphysema Paroxysmal atrial fibrillation History of recurrent pneumonia History of tobacco use History of oral cancer status post surgical resection Recommendations: Reviewed his limited outside medical records, complete medical records pertaining to his pulmonary issues are not currently available for my review inclusive of CT chest imaging or prior pulmonary function testing which will be requested accordingly. The lengthy process of determining his candidacyfor bronchoscopic lung volume reduction with [place] endobronchial valve placement has been discussed at great length, printed information has been provided. At the outset, will obtain current pulmonary function testing to better stratify the severity of his underlying pulmonary physiology and evaluate the extent of hyperinflation and air trapping in conjunction with high-resolution CT chest imaging to better quantify the severity of underlying emphysema and evaluate for interlobar collateral ventilation using StratX imaging. For now, continue COPD management with Trelegy Ellipta daily, Daliresp daily and rescue albuterol as needed Regular activity and physical exercise have been encouraged HPI: Patient is a 74 y.o. male who is seen in consultation to evaluate his candidacy for bronchoscopic lung volume reduction with [place] endobronchial valve placement. Notably, he has a longstanding diagnosis of chronic obstructive pulmonary disease and currently follows with Dr. Carmona ([facility]) as his primary endorsement clerk at [facility] in [place]. He is currently on a combinationof Trelegy Ellipta 100/25 daily and Daliresp 250 mcg daily in conjunction with rescue albuterol as needed as management of his underlying COPD. He endorses a chronic cough with expectoration of mucoid sputum that has not changed much recently and is not associated with fever, chills, chest pain or hemoptysis. He endorses dyspnea on exertion with minimal activity corresponding to an mMRC score of 4, and consequently leads a very sedentary lifestyle in spite of having completed pulmonary rehabilitation approximately 2 years ago. He is a former smoker, and smoked approximately 1 pack of cigarettes a day for 60 years before he quit smoking 3 years ago. 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 He also reports a history of recurrent pneumonias, with his last episode of bilateral pneumonia being in December 2023 at which time he was hospitalized for at least 10 days. His last exacerbation of COPD was approximately 3 weeks ago, and he typically has between 1-2 exacerbations peryear. He was diagnosed with oral cancer in October 2021 and is status post surgical resection of the same. No past medical history on file. No past surgical history on file. No family history on file. Social History Socioeconomic History Marital status: Spouse name: Not on file Number of children: Not on file Years of education: Not on file Highest education level: Not on file Occupational History Not on file Tobacco Use Smoking status: Former Types: Cigarettes Smokeless tobacco: Never Vaping Use Vaping status: Never Used Substance and Sexual Activity Alcohol use: Not on file Drug use: Not on file Sexual activity: Not on file Other Topics Concern Not on file Social History Narrative Not on file Social Determinants of Health Food Insecurity: Not on file Transportation Needs: Not on file Feeling Safe: Not on file Housing Stability: Not on file Current Medications: Current Outpatient Medications Medication Sig Dispense Refill albuterol sulfate HFA 90 mcg/actuation aerosol inhaler Take by inhalation. prn apixaban (Eliquis) 5 mg tablet Take 5 mg by mouth 2 times daily. diltiaZEM (CARDIZEM CD) 240 mg Controlled Delivery 24 hour capsule Take 240 mg by mouth daily. finasteride (PROSCAR) 5 mg tablet Take 5 mg by mouth daily. Trelegy Ellipta 100-62.5-25 mcg Disk with Device Take 1 Puff by inhalation daily. formoterol (PERFOROMIST) 20 mcg/2 mL Solution for Nebulization Take 20 mcg by inhalation 2 times daily. ipratropium bromide (ATROVENT) 0.02 % Solution Take 0.5 mg by inhalation every 12 hours. levoFLOXacin (LEVAQUIN) 750 mg tablet Take 750 mg by mouth daily. losartan (COZAAR) 25 mg tablet Take 25 mg by mouth daily. metoprolol succinate (TOPROL XL) 25 mg Extended Release 24 hour tablet Take 25 mg by mouth daily. nystatin (MYCOSTATIN) 100,000 unit/gram Cream Apply to affected area 2 times daily. omeprazole (PriLOSEC) 40 mg Capsule, Delayed Release(E.C.) Take 40 mg by mouth daily. pravastatin (PRAVACHOL) 20 mg tablet Take 20 mg by mouth daily. predniSONE (DELTASONE) 20 mg tablet Take 20 mg by mouth daily with breakfast. roflumilast (DALIRESP) 250 mcg Tablet Take 250 mcg by mouth daily. tamsulosin (FLOMAX) 0.4 mg capsule Take 0.4 mg by mouth daily. cetirizine (ZyrTEC) 10 mg tablet Take 10 mg by mouth daily. No current facility-administered medications for this visit. Medication Allergies: Allergies Allergen Reactions Lisinopril Cough and Shortness of Breath/Wheezing Sulfa (Sulfonamide Antibiotics) Shortness of Breath/Wheezing PHYSICAL EXAMINATION Ht 6' (1.829 m) Wt 27.8 kg (61 lb 3.2 oz) BMI 8.30 kg/m?? General: Alert and stable, appears in no acute distress. HEENT: Normocephalic and atraumatic. Neck: Supple, trachea midline, no adenopathy, thyroid normal. No jugular venous distension. Lungs: Bilateral equal but decreased breath sounds to auscultation. No crackles or wheeze. Heart: Heart sounds are normal and regular. No audible murmurs. Extremities: No cyanosis, clubbing or edema Lymph Nodes: Cervical, supraclavicular nodes normal. Neurologic: Non focal. I have personally reviewed all applicable data including labs, imaging studies, PFTs as well as sleep data where applicable, including individual tracings and waveforms. On the day of the visit, I spent 60 (1 hr) minutes providing care to this patient including Preparing to see the patient, Obtaining and/or reviewing separately obtained history, Performing a medically appropriate examination and/or evaluation, Counseling and educating the patient/family/caregiver, O rdering medications, tests or procedures, Documenting clinical information in the medical record, and Independently interpreting results and communicating results to the patient/family/caregiver (notseparately reported). Please do not hesitate to contact me with any clarifications or questions. Salvador Ansari MD Pulmonary, Critical Care, Neurocritical Care & Sleep Medicine [facility], [place] [address] Off: [phone] Pager: [phone] R TESTER documented in this encounter Plan of Treatment Scheduled Orders Name Type Priority Associated Diagnoses Orde r Schedule PULMONARY FUNCTION TEST PFT Routine Chronic obstructive pulmonary disease, unspecified COPD type 1 Occurrences starting 07/12/2024 until 07/12/2025 CT CHEST HIGH RESOLUTION Imaging Stat Centrilobular emphysema 1 Occurrences starting 07/12/2024 until 07/12/2025 documented as of this encounter Results * PULSE OXIMETRY, WITH EXERCISE (07/12/2024 11:57 AM WATER TESTER) 07/12/2024 11:5 7 AM WATER TESTER Narrative INTERFACE SYSTEM - 07/12/2024 7:09 PM WATER TESTER ? [facility] ? [address] [place] [address] ? Test Date: ?2024-07-12 Pat Name: ? CHILO JI ? Department: ?Room: ? Gender: ? M ?Adult Daycare Coordinator: ? : ?1950 ? Requested By: ? Order Number: [id number] ? Reading : ?? Melecio Travis ? Interpretive Statements DIAGNOSIS:COPD INTERPRETATION: Walk study with oxygen titration was performed. Baseline saturation at rest was 100%. Throughout the walk study, saturation was maintained at or above 97% without the need for supplemental oxygen. ??Over approximately 6 minutes, the patient walked 254 meters. IMPRESSION: No evidence of exertional hypoxemia. Patient walked 254 meters with one stop. Electronically Signed On 07-12-2024 19:09:31 WATER TESTER by Melecio Travis Procedure Note Provider, Historical - 07/12/2024 [facility] [address] , [place] [address] Test Date: 2024-07-12 Pat Name: CHILO JI Department: Room: Gender: Adult Daycare Coordinator: : 1950 Requested By: Order Number: [id number] Reading MD: Melecio Travis Interpretive Statements DIAGNOSIS:COPD INTERPRETATION: Walk study with oxygen titration was performed. Baseline saturation atrest was 100%. Throughout the walk study, saturation was maintained at or above 97% without the need for supplemental oxygen. Over approximately 6minutes, the patient walked 254 meters. IMPRESSION: No evidence of exertional hypoxemia. Patient walked 254 meters with onestop. Electronically Signed On 07-12-2024 19:09:31 WATER TESTER by Melecio Travis Salvador Ansari MD PFT ORDERABLES INTERFACE SYSTEM Refer to clinic/hospital department documented in this encounter Visit Diagnoses Diagnosis Chronic obstructive pulmonary disease, unspecified COPD type- Primary Centrilobular emphysema Other emphysema Personal history of tobacco use Personal history of tobacco use, presenting hazards to health Preop pulmonary/respiratory exam Pre-operative respiratory examination History of oral cancer Personal history of malignant neoplasm of other and unspecified parts of oral cavity and pharynx Chronic obstructive pulmonary disease, unspecified COPD type documented in this encounter
--- OUTSIDE RECORDS SUMMARY | 2024-08-08 21:29 | XMS_ITS | Clinical Summary ---
Author Organization [facility] Address [address] [place] [address] Phone Care Team Providers Care Vp Sales Name Role Phone Unavailable Primary Care Provider Unavailabl e Allergies Active Allergy Reactions Criticality Noted Date Comments Lisinopril Cough,Shortness of Breath/Wheezing High 07/09/2018 Sulfa (Sulfonamide Antibiotics) Shortness of Breath/Wheezing High 01/27/2021 Medications Medication Sig Dispensed Refills Start Date End Date Status albuterol sulfate HFA 90 mcg/actuation aerosol inhaler Take by inhalation. prn 06/15/2024 Active apixaban (Eliquis) 5 mg tablet Take 5 mg by mouth 2 times daily. 10/24/2021 Active cetirizine (ZyrTEC) 10 mg tablet Take 10 mg by mouth daily. Active diltiaZEM (CARDIZEM CD) 240 mg Controlled Delivery 24 hour capsule Take 240 mg by mouth daily. 12/27/2023 Active finasteride (PROSCAR) 5 mg tablet Take 5 mg by mouth daily. 12/26/2023 Active Trelegy Ellipta 100-62.5-25 mcg Disk with Device Take 1 Puff by inhalation daily. 08/15/2023 Active formoterol (PERFOROMIST) 20 mcg/2 mL Solution for Nebulization Take 20 mcg by inhalation 2 times daily. 12/29/2023 Active ipratropium bromide (ATROVENT) 0.02 % Solution Take 0.5 mg by inhalation every 12 hours. 12/29/2023 Active levoFLOXacin (LEVAQUIN) 750 mg tablet Take 750 mg by mouth daily. 12/27/2023 Active losartan (COZAAR) 25 mg tablet Take 25 mg by mouth daily. 09/22/2023 Active metoprolol succinate (TOPROL XL) 25 mg Extended Release 24 hour tablet Take 25 mg by mouth daily. 06/30/2022 Active nystatin (MYCOSTATIN) 100,000 unit/gram Cream Apply to affected area 2 times daily. 12/29/2023 Active omeprazole (PriLOSEC) 40 mg Capsule, Delayed Release(E.C.) Take 40 mg by mouth daily. 09/14/2022 Active pravastatin (PRAVACHOL) 20 mg tablet Take 20 mg by mouth daily. 09/22/2023 Active predniSONE (DELTASONE) 20 mg tablet Take 20 mg by mouth daily with breakfast. 12/27/2023 Active roflumilast (DALIRESP) 250 mcg Tablet Take 250 mcg by mouth daily. 06/15/2024 Active tamsulosin (FLOMAX) 0.4 mg capsule Take 0.4 mg by mouth daily. 12/29/2023 Active Active Problems No known active problems Encounters Date Type Department Care Team Description 07/12/2024 11:00 AM NUTRITION DIRECTOR - 07/12/2024 11:59 PM NUTRITION DIRECTOR Hospital Encounter [facility] Pulmonary Function Medical [address] [place] [address] Discharge Disposition: Home or Self Care 07/12/2024 10:00 AM NUTRITION DIRECTOR Office [facility] [facility] [place] [address] Salvador Ansari MD Chronic obstructive pulmonary disease, unspecified COPD type (Primary Dx); Centrilobular emphysema; Personal history of tobacco use; Preop pulmonary/respirato ry exam; History of oral cancer 06/26/2024 External Device Data STL ABSTRACTION Provider, Abstract 06/26/2024 Telephone [facility] [place] [address] Salvador Ansari MD Referral 06/20/2024 [facility] [address] [place] [address] Salvador Ansari MD 06/20/2024 Telephone [facility] [address] [place] [address] Salvador Ansari MD Referral from Last 3 Months Social History Tobacco Use Types Packs/Day Years Used Date Smoking Tobacco: Former Cigarettes Smokeless Tobacco: Never Sex and Gender Information Value Date Recorded Sex Assigned at Male 07/05/2024 10:59 AM NUTRITION DIRECTOR Gender Identity Male 07/05/2024 10:59 AM NUTRITION DIRECTOR Sexual Orientation Straight 07/05/2024 10 :59 AM NUTRITION DIRECTOR Last Filed Vital Signs Vital Sign Reading Time Taken Comments Blood Pressure 118/76 07/12/2024 10:06 AM NUTRITION DIRECTOR Pulse 83 07/12/2024 10:06 AM NUTRITION DIRECTOR Temperature - - Respiratory Rate - - Oxygen Saturation 97% 07/12/2024 10:06 AM NUTRITION DIRECTOR Inhaled Oxygen Concentration - - Weight 27.8 kg (61 lb 3.2 oz) 07/12/2024 10:06 A M NUTRITION DIRECTOR Height 182.9 cm (6') 07/12/2024 10:06 AM NUTRITION DIRECTOR Body Mass Index 8.3 07/12/2024 10:06 AM NUTRITION DIRECTOR Plan of Treatment Health Maintenance Due Date Last Done Comments PNEUMOCOCCAL VACCINE 65+ YEARS (1 of 2 - PCV) 01/27/19 58 DTAP/TDAP/TD VACCINES (1 - Tdap) 01/27/1971 COLORECTAL SCREENING 01/27/1997 Colorectal Cancer Screening 01/27/1997 FIT-DNA Q 3 years 01/27/1997 FIT/FOBT Q 1 year 01/27/1997 Flex Sig/CT Colonography Q 5 years 01/27/1997 ZOSTER VACCINE (1 of 2) 01/27/2002 RSV VACCINE (60+ or ) (1 - Risk 60-74 years 1-dose series) 2012 Abdominal Aortic Aneurysm (AAA) Screening 01/27/2017 INFLUENZA VACCINE (#1) 2024 COVID-19 Vaccine (2 - season) 04/08/202412/2020 Procedures Procedure Name Priority Date/Time Associated Diagnosis Comments PULSE OXIMETRY, WITH EXERCISE Routine 07/12/2024 11:57 AM NUTRITION DIRECTOR Chronic obstructive pulmonary disease, unspecified COPD type from Last 3 Months Results * PULSE OXIMETRY, WITH EXERCISE (07/12/2024 11:57 AM NUTRITION DIRECTOR) 07/12/2024 11:5 7 AM NUTRITION DIRECTOR Narrative INTERFACE SYSTEM - 07/12/2024 7:09 PM NUTRITION DIRECTOR ? [facility] ? [address], [place] [address] ? Test Date: ?2024-07-12 Pat Name: ? CHILO JI ? Department: ?Room: ? Gender: ? M ?Press Machine Feeder: ? : ?1950 ? Requested By: ? Order Number: [id number] ? Reading MD: ?? Melecio Travis ? Interpretive Statements DIAGNOSIS:COPD [...] one stop. Electronically Signed On 07-12-2024 19:09:31 NUTRITION DIRECTOR by Melecio Travis Procedure Note Provider, Historical - 07/12/2024 [facility] [address], [place] [address] Test Date: 2024-07-12 Pat Name: CHILO JI Department: Room: Gender: M Press Machine Feeder: : 1950 Requested By: Order Number: [id number] Reading MD: Melecio Travis Interpretive Statements DIAGNOSIS:COPD INTERPRETATION: Walk study with oxygen titration was performed. Baseline saturation atrest was 100%. Throughout the walk study, saturation was maintained at or above 97% without the need for supplemental oxygen. Over approximately 6minutes, the patient walked 254 meters. IMPRESSION: No evidence of exertional hypoxemia. Patient walked 254 meters with onestop. Electronically Signed On 07-12-2024 19:09:31 NUTRITION DIRECTOR by Melecio Travis Salvador Ansari MD PFT ORDERABLES INTERFACE SYSTEM Refer to clinic/hospital department from Last 3 Months
--- OUTSIDE RECORDS SUMMARY | 2024-08-08 21:29 | XMS_ITS | Encounter Summary ---
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 [address] [facility] [place] [address] Referral ID Status Reason Start Date Expiration Date V isits Requested Visits Authorized [id number] Authorized 04/02/2024 05/02/2025 1 1 Reason for Visit * Reason Comments Follow-up 4 Month Encounter Details Date Type Department Care Team (Late st Contact Info) Description 04/02/2024 2:20 PM CDT Office Visit [facility] Advanced Medicine ([facility]) - [facility] ENT [address] [facility] Advanced Medicine [address] [place] [address] [place] [id number] Jeny Wagner PA [address] [facility] [address] [place] [address] 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) [...] - Inhaled Oxygen Concentration - - Weight 75.3 kg (166 lb) 04/02/2024 2:03 PM CDT Height 182.9 cm (6') 04/02/2024 2:03 PM CDT Body Mass Index 22.51 04/02/2024 2:03 PM CDT documented in this encounter Progress Notes * Jeny Wagner PA - 04/02/2024 2:20 PM CDT [facility] ([facility]) - [facility] E[facility] [address] [facility] [address] [place] [address] [place] [address] Chilo Cross 1950 Transition: Dr. Singleton Chief Complaint: Cancer surveillance Oncology History- Surgery FOM (cancer of floor of mouth) ([facility]) Surgery DIAGNOSIS/TREATMENT/COMPLETION DATE: 1. SCCa with [...] since last visit with Dr. Singleton in November 2023 except for hospitalization for pneumonia in December. He also had a lower tooth pulled 2 weeks ago, healing well. Physical Exam Constitutional: Vitals: 04/02/24 1403 Weight: 75.3 kg (166 lb) Height: 182.9 cm (6') General Appearance: Well-developed, [...] IDL/Mirror: Base of tongue and larynx are normal Neck: No evidence of lymphadenopathy, masses or tenderness. The salivary gland examination is normal bilaterally. No palpable abnormalities of the thyroid gland. Musculoskeletal: Ambulates without difficulty and neck range of motion intact. Results Reviewed: Imaging Studies: CT report of the neck dated 04/02/24 was personally reviewed, showing the following: IMPRESSION: Stable postsurgical changes of floor of mouth surgical resection and partial mandibulectomy for removal of mass. The residual 12 mm focus of heterogeneously enhancing soft tissue within the mandibular resection bed is unchanged. Recommend correlation with direct visualization. No cervical lymphadenopathy. 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 Patient continues to do well functionally and has no evidence of disease on today's exam. There is no exam correlate with CT finding in floor of mouth. Plan: Problem List FOM (cancer of floor of mouth) ([facility]) - Primary Overview NAME OF PROCEDURE (Pur 10/09/2021): Composite resection (ventral tongue, FOM, and marginal mandibulectomy) Relevant Orders CT Soft Tissue Neck with Contrast CT Chest with Contrast Continue surveillance, follow up in [address] neck and chest ASHLEY Rai documented in this encounter Plan of Treatment Scheduled Orders Name Type Priority Associated Diagnoses Orde r Schedule CT Soft Tissue Neck with Contrast Imaging Schedule Routine, Read Routine (OP Routine) FOM (cancer of floor of mouth) ([facility]) Expected: 10/01/2024, Expires: 04/02/2025 CT Chest with Contrast Imaging Schedule Routine, Read Routine (OP Routine) FOM (cancer of floor of mouth) ([facility]) Expected: 10/01/2024, Expires: 04/02/2025 documented as of this encounter Visit Diagnoses Diagnosis FOM (cancer of floor of mouth) ([facility])- Primary Malignant neoplasm of floor of mouth, part unspecified documented in this encounter Discontinued Medications Medication Sig Discontinue Reason Start Date End Da te ipratropium-albuteroL (DUO-NEB) 0.5-2.5 mg/3 mL nebulizer solutionIndications:Chr onic Obstructive Pulmonary Disease with Bronchospasms Take by nebulization every 6 (six) hours 04/02/2024 pravastatin (PRAVACHOL) 10 mg tablet 09/06/2022 04/02/2024 documented as of this encounter Historical Medications * This list may reflect changes made after this encounter. Medication Sig Dispense Quantity Refills Last Filled Start D ate End Date pravastatin (PRAVACHOL) 20 mg tablet 04/01/2024 nystatin cream 12/29/2023 levoFLOXacin (LEVAQUIN) 750 mg tablet 12/27/2023 ipratropium (ATROVENT) 0.02 % nebulizer solution 02/22/2024 formoterol (PERFOROMIST) 20 mcg/2 mL nebulizer solution 12/29/2023 fluconazole (DIFLUCAN) 150 mg tablet 12/29/2023 finasteride (PROSCAR) 5 mg tablet 12/26/2023 dilTIAZem CD 240 mg 24 hr capsule 01/20/2024 added in this encounter Care Teams Hot Strip Mill Inspector Relationship Specialty Start Date End Date Liliana May MD [address] [place] [address] PCP - General Family Medicine 01/01/21 Moose Singleton MD [address] [place] [address] Consulting Physician Otolaryngology 09/27/21 documented as of this encounter
--- OUTSIDE RECORDS SUMMARY | 2024-08-08 21:29 | XMS_ITS | Encounter Summary ---
Author Organization [facility] Address [address] [place] [address] Care Team Providers Care Assistant Store Leader Name Role Phone Unavailable Primary Care Provider Unavailabl e Reason for Referral * Respiratory (Routine) - Closed Specialty Diagnoses / Procedures Referred By Johanna perdomo Referred To Contact Diagnoses Chronic obstructive pulmonary disease, unspecified COPD type Procedures PULSE OXIMETRY, WITH EXERCISE Salvador Ansari MD [address] [place] [address] Referral ID Status Reason Start Date Expiration Date Visits Re quested Visits Authorized [id number] Closed 07/12/2024 08/12/2025 1 1 D ACTIVATION MANAGER Reason for Visit * Respiratory (Routine) - Closed Specialty Diagnoses / Procedures Referred By Johanna perdomo Referred To Contact Diagnoses Chronic obstructive pulmonary disease, unspecified COPD type Procedures PULSE OXIMETRY, WITH EXERCISE Salvador Ansari MD [address] [place] [address] Referral ID Status Reason Start Date Expiration Date Visits Re quested Visits Authorized [id number] Closed 07/12/2024 08/12/2025 1 1 Encounter Details Date Type Department Care Team (Latest Contact Info) Description 07/12/2024 11:00 AM BRAND ACTIVATION MANAGER - 07/12/2024 11:59 PM BRAND ACTIVATION MANAGER Hospital Encounter [facility] Pulmonary Function Medical [place] [facility] [address] [place] [address] Discharge Disposition: Home or Self Care Social History Tobacco Use Types Packs/Day Years Used Date Smoking Tobacco: Former Cigarettes Smokeless Tobacco: Never Sex and Gender Information Value Date Recorded Sex Assigned at Male 07/05/2024 10:59 AM BRAND ACTIVATION MANAGER Gender Identity Male 07/05/2024 10:59 AM BRAND ACTIVATION MANAGER Sexual Orientation Straight 07/05/2024 10 :59 AM BRAND ACTIVATION MANAGER documented as of this encounter Medications at Time of Discharge Medication Sig Dispensed Refills Start Date End Date albuterol sulfate HFA 90 mcg/actuation aerosol inhaler Take by inhalation. prn 06/15/2024 apixaban (Eliquis) 5 mg tablet Take 5 mg by mouth 2 times daily. 10/24/2021 cetirizine (ZyrTEC) 10 mg tablet Take 10 mg by mouth daily. diltiaZEM (CARDIZEM CD) 240 mg Controlled Delivery 24 hour capsule Take 240 mg by mouth daily. 12/27/2023 finasteride (PROSCAR) 5 mg tablet Take 5 mg by mouth daily. 12/26/2023 Trelegy Ellipta 100-62.5-25 mcg Disk with Device Take 1 Puff by inhalation daily. 08/15/2023 formoterol (PERFOROMIST) 20 mcg/2 mL Solution for Nebulization Take 20 mcg by inhalation 2 times daily. 12/29/2023 ipratropium bromide (ATROVENT) 0.02 % Solution Take 0.5 mg by inhalation every 12 hours. 12/29/2023 levoFLOXacin (LEVAQUIN) 750 mg tablet Take 750 mg by mouth daily. 12/27/2023 losartan (COZAAR) 25 mg tablet Take 25 mg by mouth daily. 09/22/2023 metoprolol succinate (TOPROL XL) 25 mg Extended Release 24 hour tablet Take 25 mg by mouth daily. 06/30/2022 nystatin (MYCOSTATIN) 100,000 unit/gram Cream Apply to affected area 2 times daily. 12/29/2023 omeprazole (PriLOSEC) 40 mg Capsule, Delayed Release(E.C.) Take 40 mg by mouth daily. 09/14/2022 pravastatin (PRAVACHOL) 20 mg tablet Take 20 mg by mouth daily. 09/22/2023 predniSONE (DELTASONE) 20 mg tablet Take 20 mg by mouth daily with breakfast. 12/27/2023 roflumilast (DALIRESP) 250 mcg Tablet Take 250 mcg by mouth daily. 06/15/2024 tamsulosin (FLOMAX) 0.4 mg capsule Take 0.4 mg by mouth daily. 12/29/2023 documented as of this encounter Plan of Treatment Not on file documented as of this encounter Procedures Procedure Name Priority Date/Time Associated Diagnosis Comments PULSE OXIMETRY, WITH EXERCISE Routine 07/12/2024 11:57 AM BRAND ACTIVATION MANAGER Chronic obstructive pulmonary disease, unspecified COPD type documented in this encounter Results * PULSE OXIMETRY, WITH EXERCISE (07/12/2024 11:57 AM BRAND ACTIVATION MANAGER) 07/12/2024 11:5 7 AM BRAND ACTIVATION MANAGER Narrative INTERFACE SYSTEM - 07/12/2024 7:09 PM BRAND ACTIVATION MANAGER ? [facility] ? [address], [place] [address] ? Test Date: ?2024-07-12 Pat Name: ? CHILO JI ? Department: ?Room: ? Gender: ? M ?Computer Assembler: ? : ?1950 ? Requested By: ? Order Number: [id number] ? Reading : ?? Melecio Travis ? [...] one stop. Electronically Signed On 07-12-2024 19:09:31 BRAND ACTIVATION MANAGER by Melecio Travis Procedure Note Provider, Historical - 07/12/2024 [facility] [address] [address] [facility], [place] [address] Test Date: 2024-07-12 Pat Name: CHILO JI Department: Room: Gender: M Computer Assembler: : 1950 Requested By: Order Number: [id number] Reading MD: Melecio Travis Interpretive Statements DIAGNOSIS:COPD INTERPRETATION: Walk study with oxygen titration was performed. Baseline saturation atrest was 100%. Throughout the walk study, saturation was maintained at or above 97% without the need for supplemental oxygen. Over approximately 6minutes, the patient walked 254 meters. IMPRESSION: No evidence of exertional hypoxemia. Patient walked 254 meters with onestop. Electronically Signed On 07-12-2024 19:09:31 BRAND ACTIVATION MANAGER by Melecio Travis Salvador Ansari MD PFT ORDERABLES INTERFACE SYSTEM Refer to clinic/hospital department documented in this encounter Visit Diagnoses Diagnosis Chronic obstructive pulmonary disease, unspecified COPD type documented in this encounter
--- OUTSIDE RECORDS SUMMARY | 2024-08-08 21:30 | XMS_ITS | Encounter Summary ---
Author Organization [facility] Address [address] [place] [address] Phone Care Team Providers Care Insurance Broker Name Role Phone Liliana May MD Primary Care Provider Moose Singleton MD Unavailable [phone] Reason for Referral * Consultation (Routine) - Closed Specialty Diagnoses / Procedures Referred By Johanna perdomo Referred To Contact Otolaryngology Diagnoses FOM (cancer of floor of mouth) ([facility]) Liliana May MD [address] [place] [address] Phone: tel: fax: [facility] (All Locations) Referral ID Status Reason Start Date Expiration Date V isits Requested Visits Authorized [id number] Closed Specialty Services Required 05/05/2022 06/04/2023 99 99 Question Answer Please select the performing region: [facility] (All Locations) [[id number]] # of visits: 1 Reason for Visit * Reason Comments Follow-up * Consultation (Routine) - Closed Specialty Diagnoses / Procedures Referred By Contkellee t Referred To Contact Otolaryngology Diagnoses FOM (cancer of floor of mouth) ([facility]) Liliana May MD [address] [place] [address] Phone: tel: fax: [facility] (All Locations) Referral ID Status Reason Start Date Expiration Date V isits Requested Visits Authorized [id number] Closed Specialty Services Required 05/05/2022 06/04/2023 99 99 Encounter Details Date Type Department Care Team (Late st Contact Info) Description 05/17/2022 1:40 PM CDT [facility] [address] [facility] [address]th [place] [address] [place] [phone] Moose Singleton MD [address] [place] [address] 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) [...] - Inhaled Oxygen Concentration - - Weight 72.5 kg (159 lb 12.8 oz) 05/17/2022 1:51 PM CDT Height - - Body Mass Index 21.67 10/16/2021 12:39 PM SURGICAL ASSISTANT documented in this encounter Progress Notes * Moose Singleton MD - 05/17/2022 1:40 PM CDT [facility] Department of Otolaryngology Division of Head and Neck Surgery 05/17/2022 Chilo Cross 1950 [id number] Referred by: Tavia Med onc: TBD Rad onc: TBD Chief Complaint: FOM verrucous SCC HPI: Mr. Cross is a 72 y.o. year old male with past history [...] has otherwise been doing well. The surgical siteis now healed completely. He otherwise denies changes in voice, stridor, difficulty breathing, changes in swallow including dysphagia/odynophagia, otalgia. No other masses of the head and neck or cutaneous cancers of the headand neck. Denies any systemic symptoms including fevers, chills, night sweats, or weight loss. PAST MEDICAL HISTORY: Past Medical History: Diagnosis Date Atrial fibrillation (CMS/HCC) (HCC) CAD (coronary artery disease) 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 CHF (congestive heart failure) (CMS/HCC) (HCC) COPD (chronic obstructive pulmonary disease) (CMS/HCC) (HCC) Ejection fraction < 50% HTN (hypertension) Pulmonary hypertension (CMS/HCC) (HCC) PAST SURGICAL HISTORY: Past Surgical History: Procedure Laterality Date BRONCHOSCOPY CARDIAC STENT PLACEMENT VASECTOMY SOCIAL HISTORY: Social History Socioeconomic History [...] Family History Problem Relation Age of Onset Anesthesia problems Neg Hx MEDICATIONS: Current Outpatient Medications Medication Sig Dispense Refill albuterol sulfate (PROAIR HFA INHAL) as needed benzonatate (TESSALON) 200 mg capsule Take 200 mg by mouth as needed calcium carbonate/vitamin D3 (CALCIUM 500 + D, D3, ORAL) Take by mouth every morning cetirizine (ZyrTEC) 10 mg tablet Take 10 mg by mouth as needed for allergies chlorhexidine (PERIDEX) 0.12 % solution Apply 15 mL to the mouth or throat 3 (three) times a day after meals 473 mL 0 clopidogreL (PLAVIX) 75 mg tablet Take 1 tablet (75 mg total) by mouth every morning Eliquis 5 mg tablet Take 1 tablet (5 mg total) by mouth 2 (two) times a day gnayeumkqzj-fndorbjqo-saiwehsu (Trelegy Ellipta) 100-62.5-25 mcg inhaler Inhale 1 puff every morning ipratropium-albuteroL (DUO-NEB) 0.5-2.5 mg/3 mL nebulizer solution Take by nebulization every 6 (six) hours losartan (COZAAR) 25 mg tablet Take 25 mg by mouth every morning omeprazole (PriLOSEC) 40 mg capsule Take 40 mg by mouth every morning oxyCODONE (ROXICODONE) 5 mg immediate release tablet Take 1 tablet (5 mg total) by mouth every 4 (four) hours as needed (intolerable pain) for up to 40 doses 40 tablet 0 tamsulosin (FLOMAX) 0.4 mg extended release capsule Take 0.4 mg by mouth every morning No current facility-administered medications for this visit. ALLERGIES: Sulfa (sulfonamide antibiotics) and Lisinopril IMMUNIZATIONS: Immunization History Administered Date(s) Administered Influenza, Unspecified 05/14/2021 Chuck ([employer]J) SARS-CoV-2 Vaccination 11/10/2020 [facility] SARS-CoV-2 Vaccination (12+ YRS) 07/15/2021 REVIEW OF SYSTEMS: [...] easy bruising PHYSICAL EXAM Vital Signs: Wt 72.5 kg (159 lb 12.8 oz) BMI 21.67 kg/m?? General: Well-developed, well-nourished. No distress. Communication [...] the defect on left just off midline Oropharynx: No mass or lesion. Tonsillar fossa [...] are normal. The limited view of the [place] is unremarkable. Other than a [...] the right thyroid nodules. CT Neck 05/17/22 I independently interpreted the neck CT dated 05/17/2022 which revealed no obvious pathologically enlarged nodes [...] healed. Tumor board favored no adjuvant therapy. - f/u in 3 mo - imaging CT neck and chest due next visit Number/complexity of problems addressed: As noted above, this patient has a chronic illness with exacerbation, progression, or side effects of treatment, namely verrucous carcinoma. Amount/complexity of data reviewed and analyzed: I have independently interpreted the neck CT which was performed by another physician/quality health care profession. Moose Singleton MD PhD Loom Stop Checker Attending, Head and Neck Surgery Department of Otolaryngology [facility] [phone] (Clinical nurse Bety Keith) Pager [phone] documented in this encounter Plan of Treatment Scheduled Referrals Name Type Priority Associated Diagnoses Order Schedule Ambulatory referral to ENT Outpatient Referral Routine 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) (HCC) Expected: 05/19/2022 (Approximate), Expires: 05/05/2023 documented as of this encounter Visit Diagnoses Diagnosis 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)- Primary Malignant neoplasm of floor of mouth, part unspecified documented in this encounter Discontinued Medications Medication Sig Discontinue Reason Start Date End Da te acetaminophen (TYLENOL) 325 mg tablet Take 650 mg by mouth every 6 (six) hours as needed for pain 05/17/2022 acetaminophen (TYLENOL) 500 mg tablet Take 2 tablets (1,000 mg total) by mouth every 6 (six) hours as needed for pain 10/11/2021 05/17/2022 ibuprofen (ADVIL,MOTRIN) 600 mg tablet Take 1 tablet (600 mg total) by mouth every 6 (six) hours as needed for pain 10/11/2021 05/17/2022 furosemide (LASIX) 20 mg tablet Take 20 mg by mouth as needed Therapy completed 06/24/2021 05/17/2022 documented as of this encounter Care Teams Insurance Broker Relationship Specialty Start Date End Date Liliana May MD [address] [place] [address] PCP - General Family Medicine 01/01/21 Moose Singleton MD [address] [place] [address] Consulting Physician Otolaryngology 09/27/21 documented as of this encounter
--- OUTSIDE RECORDS SUMMARY | 2024-08-08 21:30 | XMS_ITS | Encounter Summary ---
Author Organization [facility] Address [address] [place] [address] Phone Care Team Providers Care Engraver Machine Name Role Phone Liliana May MD Primary Care Provider Moose Singleton MD Unavailable [phone] Encounter Details Date Type Department Care Team (Late st Contact Info) Description 11/23/2021 2:20 PM CDT Office Visit [facility] ENT [address] [facility] Advanced Medicine 11th [place] [address] [place] [phone] Moose Singleton MD [address] [place] [address] Head and neck cancer (CMS/HCC) (HCC) (Primary Dx) Social History Tobacco [...] on file documented as of this encounter Progress Notes * Moose Singleton MD - 11/23/2021 2:20 PM CDT [facility] Department of Otolaryngology Division of Head and Neck Surgery 11/23/2021 Chilo Cross 1950 [id number] Referred by: Tavia Med onc: TBD Rad onc: TBD Chief Complaint: FOM verrucous SCC HPI: Mr. Cross is a 71 y.o. year old male with past history [...] Eliquis but has otherwise been doing well. He now reports heis having worsening pain at the surgical site which was concerning to him. He otherwise denies changes in voice, stridor, difficulty breathing, changes in swallow including dysphagia/odynophagia, otalgia. No other masses of the head and neck or cutaneous cancers of the headand neck. Denies any systemic symptoms including fevers, chills, night sweats, or weight loss. PAST MEDICAL HISTORY: Past Medical History: Diagnosis Date ??? Atrial fibrillation (CMS/HCC) (HCC) ??? CAD (coronary artery disease) ??? 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 CHF (congestive heart failure) (CMS/HCC) (HCC) ??? COPD (chronic obstructive pulmonary disease) (CMS/HCC) (HCC) ? ? Ejection fraction < 50% ??? HTN (hypertension) ??? Pulmonary hypertension (CMS/HCC) (HCC) PAST SURGICAL HISTORY: Past Surgical History: Procedure Laterality Date ??? BRONCHOSCOPY ??? CARDIAC STENT PLACEMENT ??? VASECTOMY SOCIAL HISTORY: Social History Socioeconomic History ??? Marital status: Spouse name: Not on file ??? Number of children: Not on file ??? Years of education: Not on file ??? Highest education level: Not on file Occupational History ??? Not on file Tobacco Use ??? Smoking status: Former Smoker Packs/day: 0.40 Types: Cigarettes Start date: 1967 ??? Smokeless tobacco: Never Used Substance and Sexual Activity ??? Alcohol use: Not Currently ??? Drug use: Never ??? Sexual activity: Defer Other Topics Concern ??? Not on file Social History Narrative ??? Not on file Social Determinants of Health Financial Resource Strain: Not on file Food Insecurity: Not on file Transportation Needs: Not on file Physical Activity: Not on file Stress: Not on file Social Connections: Not on file Intimate Partner Violence: Not on file Housing Stability: Not on file FAMILY HISTORY: Family History Problem Relation Age of Onset ??? Anesthesia problems Neg Hx MEDICATIONS: Current Outpatient Medications Medication Sig Dispense Refill ??? acetaminophen (TYLENOL) 325 mg tablet Take 650 mg by mouth every 6 (six) hours as needed for pain ??? acetaminophen (TYLENOL) 500 mg tablet Take 2 tablets (1,000 mg total) by mouth every 6 (six) hours as needed for pain 30 tablet 0 ??? albuterol sulfate (PROAIR HFA INHAL) as needed ??? benzonatate (TESSALON) 200 mg capsule Take 200 mg by mouth as needed ??? calcium carbonate/vitamin D3 (CALCIUM 500 + D, D3, ORAL) Take by mouth every morning ??? cetirizine (ZyrTEC) 10 mg tablet Take 10 mg by mouth as needed for allergies ??? chlorhexidine (PERIDEX) 0.12 % solution Apply 15 mL to the mouth or throat 3 (three) times a day after meals 473 mL 0 ??? clopidogreL (PLAVIX) 75 mg tablet Take 1 tablet (75 mg total) by mouth every morning ??? Eliquis 5 mg tablet Take 1 tablet (5 mg total) by mouth 2 (two) times a day ??? lhnvhzrproy-bmeltslfa-byzfpjok (Trelegy Ellipta) 100-62.5-25 mcg inhaler Inhale 1 puff every morning ??? furosemide (LASIX) 20 mg tablet Take 20 mg by mouth as needed ??? ibuprofen (ADVIL,MOTRIN) 600 mg tablet Take 1 tablet (600 mg total) by mouth every 6 (six) hours as needed for pain 30 tablet 0 ??? ipratropium-albuteroL (DUO-NEB) 0.5-2.5 mg/3 mL nebulizer solution Take by nebulization every 6(six) hours ??? losartan (COZAAR) 25 mg tablet Take 25 mg by mouth every morning ??? omeprazole (PriLOSEC) 40 mg capsule Take 40 mg by mouth every morning ??? oxyCODONE (ROXICODONE) 5 mg immediate release tablet Take 1 tablet (5 mg total) by mouth every 4 (four) hours as needed (intolerable pain) for up to 40 doses 40 tablet 0 ??? tamsulosin (FLOMAX) 0.4 mg extended release capsule Take 0.4 mg by mouth every morning No current facility-administered medications for this visit. ALLERGIES: Sulfa (sulfonamide antibiotics) and Lisinopril IMMUNIZATIONS: Immunization History Administered Date(s) Administered ??? Influenza, Unspecified 05/14/2021 ? ? [employer] (J[employer]J) SARS-CoV-2 Vaccination 11/10/2020 ??? Moderna SARS-CoV-2 Vaccination 07/15/2021 REVIEW OF SYSTEMS: The patient-completed Review [...] nodes, easy bruising PHYSICAL EXAM Vital Signs: There were no vitals taken for this visit. General: Well-developed, well-nourished. No distress. Communication and [...] Defect with granulation tissue and minimal blood. Some exposed bone remains but is granulating more and more. Oropharynx: No mass or lesion. Tonsillar fossa symmetric. Base of tongue soft without mass or induration. Neck Trachea: Midline trachea. Thyroid: No mass or nodularity. Lymphatics: No lymphadenopathy. 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 Procedure: ?Excision ? Tumor Site: ?Oral ? Floor of mouth ? Alveolar process, mandibular ? Tumor Laterality: ?Midline ? Tumor Focality: ?Unifocal ? Tumor Size: ?Greatest dimension: 0.9 cm ? Tumor Depth of Invasion (DOI): 1 mm ? Histologic Type: ?Squamous cell carcinoma, conventional ? with verrucous features ? Histologic Grade: ?G1: Well differentiated ? Specimen Margins: ?Uninvolved by invasive tumor ? Distance from closest margin: ??< 1 mm ? Location of closest margin: deep ? Uninvolved by high-grade dysplasia/in situ disease ? Tumor Bed Margin Orientation: ?Unoriented to true margin surface ? Tumor Bed Margins: ?Uninvolved by invasive tumor ? Uninvolved by high-grade dysplasia/in situ disease ? Lymphovascular Invasion: ?Not identified ? Perineural Invasion: ?Not identified ? Worst Pattern of Invasion (WPOI): ?WPOI 1-4 ? Regional Lymph Nodes: ?No nodes submitted or found Pathologic Stage Classification (pTNM, AJCC 8th Edition): ? pT1: ??Tumor <=2 cm, <=5 mm depth of invasion (DOI) ? pNX: ??Regional lymph nodes cannot be assessed Radiology Reports: CT Neck 09/28/21 FINDINGS: Dental fillings are noted with streak artifact the obscures portions of the exam. Within the limitations, no abnormally enhancing soft tissue lesion is identified. There is no erosion of the mandible seen. ?? Scattered subcentimeter lymph nodes are seen in the neck. None are pathologically enlarged or abnormally enhancing. The muscles of the neck are normal. Vessels of the neck demonstrate normal course and caliber. Fascial planes are preserved and the deep spaces of the neck are normal. The visualized airway is widely patent. ?? There are frothy secretions and mucosal thickening involving the left maxillary sinus with adjacent hyperostosis likely representing sequela of chronic sinusitis. ?? The base of the skull and the temporal bones are normal. Limited views of the brain including the cerebellum and brainstem are normal. The limited view of the [place] is unremarkable. Other than a right lens ocular replacement, the visualized portions of the orbits are normal. There is a dense calcification in the right thyroid lobe measuring 1 centimeter. There is a 1.0 cm hypoattenuating right thyroid lobe nodule seen anterior to the calcification. ?? There is an outpouching of the skin in the right supraorbital soft tissues which likely represents a skin tag. A few other areas of skin thickening and protrusion are noted in the bilateral posterior neck soft tissues at the level of C1. A cystic subcutaneous lesion in the midline of the posterior lower neck soft tissues is most compatible with a sebaceous cyst. ?? There is mild to moderate spinal canal stenosis at C5-6. Degenerative disc changes are most pronounced at C5-6 with moderate neural foraminal stenosis at this level. Neural foramina are otherwise normal. There are reticular opacities with area of scarring and atelectasis seen in the upper lungs. There are diffuse emphysematous changes. Please see dedicated CT chest with contrast for further details. ?? IMPRESSION: 1. No abnormally enhancing soft tissue [...] study is recommended in approximately 2-3 months. ?? Right upper lobe 2.0 cm partially calcified nodule may represent a hamartoma or partially calcified granuloma. Recommend comparison with prior studies if available. If not available, it can be reevaluated on the next follow-up. IMPRESSION/PLAN: He is now s/p composite resection (10/09/21; superficially invasive well differentiated T1Nx SCC withverrucous features 9 mm x 1 mm, no LVI, 1 mm deep margin, mild dysplasia at margin). Since then he was readmitted for bleeding after restarting Eliquis but has otherwise been doing well. Tumor board favored no adjuvant therapy. - f/u in 2 mo Moose Singleton MD PhD Court Abstractor Attending, Head and Neck Surgery Department of Otolaryngology [facility] [phone] (Clinical nurse Bety Keith) Pager [phone] documented in this encounter Plan of Treatment Not on file documented as of this encounter Visit Diagnoses Diagnosis Head and neck cancer (HCC)- Primary documented in this encounter Care Teams Engraver Machine Relationship Specialty Start Date End Date Liliana May MD [address] [place] [address] PCP - General Family Medicine 01/01/21 Moose Singleton MD [address] [place] [address] Consulting Physician Otolaryngology 09/27/21 documented as of this encounter
--- OUTSIDE RECORDS SUMMARY | 2024-08-08 21:30 | XMS_ITS | Encounter Summary ---
Author Organization [facility] Address [address] [place] [address] Phone Care Team Providers Care Cad Drafter Name Role Phone Liliana May MD Primary Care Provider Moose Singleton MD Unavailable [phone] Reason for Visit * Reason Comments ROPEMAN Initial Evaluation Swallow evaluatio n Encounter Details Date Type Department Care Team (Late st Contact Info) Description 10/26/2021 2:00 PM CDT Therapy [facility] Otolaryngology [facility] Advanced Medicine 11th [place] [address] [place] [phone] Della Hensley, ROPEMAN [address] [place], [place] [id number] Oral phase dysphagia (Primary Dx) Social History Tobacco Use Types [...] as of this encounter Progress Notes * Della Hensley, ROPEMAN - 10/26/2021 2:00 PM CDT Della Hensley M.A., [facility] Speech-Language Pathologist Swallowing Evaluation Name: Chilo Cross : 1950 MJ: 10/26/2021 History: 71 y/o male referred by Dr. Singleton for swallowing evaluation. The patient is S/P composite resection involving the alveolar ridge, FOM and ventral tongue with dental extractions and rim mandibulectomy performed 10/09/21 for management of carcinoma in-situ. He was discharged from the hospital on a FLD. Other medical Hx includes Afib, HTN, CAD, COPD and BPH. Evaluation: He has complied with the recommended FLD. He is hungry. He reports a 10 pound weight loss. Speech intelligibility is 100% with unknown topics. His voice quality and strength are normal. Lip ROM is normal. Tongue ROM is normal. Tongue to hard palate approximation is complete. Soft palateelevation is normal. There is brisk and symmetric contraction of the LPW's. He has a suture remaining in the FOM that he can feel. He has a slight under bite that is not new according to the patient. He was given juice, applesauce and fruit cocktail. Solids were avoided as he had not yet seen the surgeon for clearance. Oral transfer of all trials was complete. Pharyngeal response was timely and no post swallow cough or wet voice was encountered. He took his time chewing as it felt weird and he had to work around two missing teeth on his bottom arch but he had no difficulty breaking down thesoft foods. Secretions: [x] Appears to be tolerating secretions [] Gurgly vocal quality with attempts at clearing [] Gurgly vocal quality with no attempts at clearing Consistencies Administered: [] Ice Chips [x] Thin Liquids [] Smyer [] Honey [x] Puree [x] Semi Solid Strategies attempted: NONE NEEDED [] Head turn [] Chin Tuck [] Supraglottic [] Super Supraglottic [] Breath Hold [] Effortful Swallow [] Robinson [] Oral Phase Function: Prompt and efficient oral clearance of all textures presented Pharyngeal Phase Function: Prompt swallow response with no overt evidence of aspiration or dysmotility. Clinical Impressions/ Recommendations: Oropharyngeal swallow function is normal Treatment Plan: He will begin a soft diet with thin liquids after cleared by Dr. Singleton. There is noneed for swallow therapy at this time. documented in this encounter Plan of Treatment Not on file documented as of this encounter Visit Diagnoses Diagnosis Oral phase dysphagia- Primary Dysphagia, oral phase documented in this encounter Care Teams Cad Drafter Relationship Specialty Start Date End Date Liliana May MD [address] [place] [address] PCP - General Family Medicine 01/01/21 Moose Singleton MD [address] [place] [address] Consulting Physician Otolaryngology 09/27/21 documented as of this encounter
--- OUTSIDE RECORDS SUMMARY | 2024-08-08 21:30 | XMS_ITS | Encounter Summary ---
Author Organization [facility] Healthcare Address [address] [place] [address] Care Team Providers Care Boardmarker Name Role Phone Liliana May MD Primary Care Provider Moose Singleton MD Unavailable [phone] Reason for Referral * MRI/CAT/PET Scan (Routine) - Closed Specialty Diagnoses / Procedures Referred By Johanna perdomo Referred To Contact Radiology Diagnoses 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) Procedures CT Soft Tissue Neck with Contrast Moose Singleton MD [address] [place] [address] Phone: tel: fax: [address] [address] Referral ID Status Reason Start Date Expiration Date Visits Re quested Visits Authorized [id number] Closed 02/01/2022 03/03/2023 1 1 Reason for Visit * MRI/CAT/PET Scan (Routine) - Closed Specialty Diagnoses / Procedures Referred By Johanna perdomo Referred To Contact Radiology Diagnoses 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) Procedures CT Soft Tissue Neck with Contrast Moose Singleton MD [address] [place] [address] Phone: tel: fax: [facility] [address] [facility] [place] [address] Referral ID Status Reason Start Date Expiration Date Visits Re quested Visits Authorized [id number] Closed 02/01/2022 03/03/2023 1 1 Encounter Details Date Type Department Care Team (Latest Contact Info) Description 05/17/2022 12:23 PM CDT - 05/17/2022 11:59 PM CDT Hospital Encounter [facility] [address] [place] [address] Moose Singleton MD [address] [place] [address] FOM (cancer of floor of mouth) ([facility]/HCC) ([facility]) Discharge Disposition: Discharge to home or self [...] 25 mg by mouth every morning 06/27/2021 tamsulosin (FLOMAX) 0.4 mg extended release capsule Take 0.4 mg by mouth every morning 07/28/2021 chlorhexidine (PERIDEX) 0.12 % solution Apply 15 mL to the mouth or throat 3 (three) times a day after meals 473 mL 10/11/2021 08/16/19 23 clopidogreL (PLAVIX) 75 mg tablet Take 1 tablet (75 mg total) by mouth every morning 10/28/2021 11/30/19 23 ipratropium-albute roL (DUO-NEB) 0.5-2.5 mg/3 mL nebulizer solutionIndication s:Chronic Obstructive Pulmonary Disease with Bronchospasms Take by nebulization every 6 (six) hours 04/02/20 24 omeprazole (PriLOSEC) 40 mg capsuleIndications :reflux Take 40 mg by mouth every morning 08/06/2021 08/16/19 23 oxyCODONE (ROXICODONE) 5 mg immediate release tabletIndications: Pain Take 1 tablet (5 mg total) by mouth every 4 (four) hours as needed (intolerable pain) for up to 40 doses 40 tablet 10/11/2021 04/18/20 23 documented as of this encounter Discharge Disposition Disposition Code Departure Means Destination Discharge to home or self care documented in this encounter Plan of Treatment Not on file documented as of this encounter Procedures Procedure Name Priority Date/Time Associated Diagnosis Comments CT SOFT TISSUE NECK W CONTRAST Schedule Routine, Read Routine (OP Routine) 05/17/2022 1:43 PM CDT 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) (HCC) POCT CREATININE - DEVICE Routine 05/17/2022 1:15 PM CDT documented in this encounter Results * CT Soft Tissue Neck with Contrast (05/17/2022 1:43 PM CDT) Anatomical Region Laterality Modality Head and Neck N/A Computed Tomogra phy 05/17/2022 4:43 PM CDT Impressions 05/17/2022 5:54 PM CDT Evaluation of floor of mouth limited by streak artifact secondary to dental gnosticism. However no definitive evidence of residual or recurrent enhancing mass in the mouth, and no cervical lymphadenopathy. Dictated by: Kavon Clayton MD The radiology attending physician has personally reviewed this study, and had reviewed and/or edited this written report and agrees with it. 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 TECHNIQUE: CT of the neck was performed according to standard protocol after the uneventful administration of intravenous contrast. Contrast information: 95 mL Optiray-350 COMPARISON: CT neck 09/28/2021. FINDINGS: Review of the topogram demonstrates multiple dental replacements. Small hypoattenuating defect in the floor of mouth which may represent postsurgical change from prior resection. ??Scattered subcentimeter lymph nodes are seen in the neck. None are pathologically enlarged or abnormally enhancing. The muscles of the neck are normal. Vessels of the neck demonstrate normal course and caliber. Fascial planes are preserved and the deep spaces of the neck are normal. The visualized airway is widely patent. Unchanged subcentimeter right thyroid nodule anterior to 1 cm dense calcification. Evaluation of floor of mouth limited by streak artifact secondary to dental replacements. However no definitive evidence of residual or recurrent enhancing mass. The base of the skull and the temporal bones are normal. Limited views of the brain including the cerebellum and brainstem are normal. The limited view of the [place] is unremarkable. Right lens replacement, otherwise the visualized portions of the orbits are normal. There is moderate left maxillary sinus inspissated mucous. There is opacification of the right frontal and bilateral ethmoid air cells. Unchanged outpouching of the skin in the right supraorbital soft tissues which likely represents a skin tag. ??Unchanged additional areas of skin thickening and protrusion in the posterior neck. Unchanged cystic subcutaneous lesion in the midline of the posterior lower neck soft tissues is most compatible with a sebaceous cyst. Mild spinal canal stenosis and bilateral neuroforaminal stenosis at C5-C6. Severe biapical emphysematous changes. Interval resolution of complex cystic lesion in the left upper lobe. 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 TECHNIQUE: CT of the neck was performed according to standard protocol after the uneventful administration of intravenous contrast. Contrast information: 95 mL Optiray-350 COMPARISON: CT neck 09/28/2021. FINDINGS: Review of the topogram demonstrates multiple dental replacements. Small hypoattenuating defect in the floor of mouth which may represent postsurgical change from prior resection. Scattered subcentimeter lymph nodes are seen in the neck. None are pathologically enlarged or abnormally enhancing. The muscles of the neck are normal. Vessels of the neck demonstrate normal course and caliber. Fascial planes are preserved and the deep spaces of the neck are normal. The visualized airway is widely patent. Unchanged subcentimeter right thyroid nodule anterior to 1 cm dense calcification. Evaluation of floor of mouth limited by streak artifact secondary to dental replacements. However no definitive evidence of residual or recurrent enhancing mass. The base of the skull and the temporal bones are normal. Limited views of the brain including the cerebellum and brainstem are normal. The limited view of the [place] is unremarkable. Right lens replacement, otherwise the visualized portions of the orbits are normal. There is moderate left maxillary sinus inspissated mucous. There is opacification of the right frontal and bilateral ethmoid air cells. Unchanged outpouching of the skin in the right supraorbital soft tissues which likely represents a skin tag. Unchanged additional areas of skin thickening and protrusion in the posterior neck. Unchanged cystic subcutaneous lesion in the midline of the posterior lower neck soft tissues is most compatible with a sebaceous cyst. Mild spinal canal stenosis and bilateral neuroforaminal stenosis at C5-C6. Severe biapical emphysematous changes. Interval resolution of complex cystic lesion in the left upper lobe. IMPRESSION: Evaluation of floor of mouth limited by streak artifact secondary to dental gnosticism. However no definitive evidence of residual or recurrent enhancing mass in the mouth, and no cervical lymphadenopathy. Dictated by: Kavon Clayton MD The radiology attending physician has personally reviewed this study, and had reviewed and/or edited this written report and agrees with it. Electronically signed by: Pantera Parisi MD, PHD us Moose Singleton MD IMG CT PROCEDURES Ernestine l Result * POCT creatinine (05/17/2022 1:15 PM CDT) Creatinine POC 1.3 0.7 - 1.3 mg/dL [facility] Blood 05/17/2022 1:15 PM CDT 05/17/2022 1:15 PM CDT us Lilaina May MD LAB POCT ORDERABLES - D EVICE Final Result [facility] Department [place] [address] documented in this encounter Visit Diagnoses Diagnosis 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) Malignant neoplasm of floor of mouth, part unspecified documented in this encounter Administered Medications Inactive Administered Medications - up to 3 most recent administrations Medication Order MAR Action Action Date Dose Rate Site ioversoL (OPTIRAY 350) syringe 100 mL 100 mL, intravenous, Once in imaging, contrast, Starting on 05/17/22 at 1328, For 1 dose Contrast Given 05/17/2022 1:28 PM CDT 95 mL documented in this encounter Orders Medications Ordered That José Manuel ht Not Have Been Administered Count Last Ordered Date First Ordered Date ioversoL (OPTIRAY 350) syringe 100 mL 1 05/2022 documented in this encounter Care Teams Boardmarker Relationship Specialty Start Date End Date Liliana May MD [address] [place] [address] PCP - General Family Medicine 01/01/21 Moose Singleton MD [address] [place] [address] Consulting Physician Otolaryngology 09/27/21 documented as of this encounter
--- OUTSIDE RECORDS SUMMARY | 2024-08-08 21:30 | XMS_ITS | Encounter Summary ---
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) Procedures CT Chest W Contrast CT Neck Chest W Contrast Moose Singleton MD [address] [facility] [address] [place] [address] Phone: tel: fax: [facility] [address] [place] [address] Referral ID Status Reason Start Date Expiration Date Visits Re quested Visits Authorized [id number] Closed 08/16/2022 09/15/2023 1 1 INED MINISTER Reason for Visit * Reason Comments FOM Encounter Details Date Type Department Care Team (Late st Contact Info) Description 08/16/2022 11:00 AM ORDAINED MINISTER Office Visit [facility] ([facility]) - [facility] ENT [address] [facility] Advanced Medicine [address]th [place] [address] [place] [address] Moose Singleton MD [address] [place] [address] 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) [...] - Inhaled Oxygen Concentration - - Weight 73.1 kg (161 lb 3.2 oz) 08/16/2022 11:10 AM ORDAINED MINISTER Height - - Body Mass Index 21.86 10/16/2021 12:39 PM ORDAINED MINISTER documented in this encounter Progress Notes * Moose Singleton MD - 08/16/2022 11:00 AM CST [facility] Department of Otolaryngology Division of Head and Neck Surgery 08/16/2022 [address] 1950 [phone] Referred by: Tavia Med onc: TBD Rad [...] Take 200 mg by mouth as needed cetirizine (ZyrTEC) 10 mg tablet Take 10 mg by mouth as needed for allergies clopidogreL (PLAVIX) 75 mg tablet Take 1 tablet (75 mg total) by mouth every morning Eliquis 5 mg tablet Take 1 tablet (5 mg total) by mouth 2 (two) times a day famotidine (PEPCID) 40 mg tablet vubogyzvcjf-kcvuffhec-fqhipeuv (Trelegy Ellipta) 100-62.5-25 mcg inhaler Inhale 1 puff every morning ipratropium-albuteroL (DUO-NEB) 0.5-2.5 mg/3 mL nebulizer solution Take by nebulization every 6 (six) hours losartan (COZAAR) 25 mg tablet Take 25 mg by mouth every morning metoprolol XL (TOPROL-XL) 25 mg extended release tablet tamsulosin (FLOMAX) 0.4 mg extended release capsule Take 0.4 mg by mouth every morning calcium carbonate/vitamin D3 (CALCIUM 500 + D, D3, ORAL) Take by mouth every morning (Patient not taking: Reported on 08/16/2022) oxyCODONE (ROXICODONE) 5 mg immediate release tablet Take 1 tablet (5 mg total) by mouth every 4 (four) hours as needed (intolerable pain) for up to 40 doses (Patient not taking: Reported on 08/16/2022) 40 tablet 0 No current facility-administered medications for this visit. ALLERGIES: Sulfa (sulfonamide antibiotics) and Lisinopril IMMUNIZATIONS: Immunization History Administered Date(s) Administered Influenza, Unspecified 05/14/2021 [facility] ([facility]) SARS-CoV-2 Vaccination 11/10/2020 [facility] SARS-CoV-2 Vaccination (12+ YRS) 07/15/2021 REVIEW OF [...] easy bruising PHYSICAL EXAM Vital Signs: Wt 73.1 kg (161 lb 3.2 oz) BMI 21.86 kg/m?? General: Well-developed, well-nourished. No distress. Communication [...] on left just off midline on thetongue Oropharynx: No mass or lesion. Tonsillar fossa [...] are normal. The limited view of the [place] is unremarkable. Other than a [...] limited by streak artifact secondary to dental voodoo. However no definitive evidence of residual or recurrent enhancing mass in the mouth, and no cervical lymphadenopathy. CT Neck and Chest 08/16/22 IMPRESSION: Evaluation of floor of mouth is limited by streak artifact secondary to dental voodoo. However no definitive evidence of residual or recurrent enhancing mass in the mouth, and no cervical Lymphadenopathy IMPRESSION: 1. No definitive evidence for intrathoracic metastatic disease. 2. Stable indeterminate 6 mm left lower lobe pulmonary nodule. 3. New scattered bibasilar tree-in-bud opacities are favored to represent infectious or inflammatory post aspiration changes. IMPRESSION/PLAN: He is now s/p composite resection [...] in 3 mo - imaging CT neck due next visit Number/complexity of problems addressed: [...] CT from today Moose Singleton MD PhD Marketing Clerk Attending, Head and Neck Surgery Department of Otolaryngology [employer] [phone] (Clinical nurse Bety Keith) Pager [phone] INED MINISTER documented in this encounter Plan of Treatment Not on file documented as of this encounter Results * CT Chest W Contrast (08/16/2022 1:39 PM ORDAINED MINISTER) Anatomical Region Laterality Modality Body N/A Computed Tomogra phy 08/16/2022 2:03 PM ORDAINED MINISTER Impressions 08/16/2022 5:58 PM ORDAINED MINISTER 1. ??No definitive evidence for intrathoracic metastatic disease. 2. ??Stable indeterminate 6 mm left lower lobe pulmonary nodule. 3. ??New scattered bibasilar tree-in-bud opacities are favored to represent infectious or inflammatory post aspiration changes. Dictated by: Milton Dale M.D. The radiology attending physician has personally reviewed this study, and had reviewed and/or edited this written report and agrees with it. Electronically signed by: Suzanne Cody MD Narrative 08/16/2022 5:58 PM ORDAINED MINISTER EXAMINATION: ??Computed tomography of the chest with intravenous contrast HISTORY: Floor of mouth squamous cell carcinoma TECHNIQUE: ??Transaxial computed tomographic images of the chest were obtained with intravenous contrast according to the standard protocol after the uneventful administration of 100 mL Opti-Ray 350 intravenous contrast. COMPARISON: CT scan dated 09/28/2021 FINDINGS: ?? Mild debris in the airways. ??Severe centrilobular and paraseptal apical predominant emphysema with apical pleural-parenchymal scarring.. ??Stable appearing 2 cm right upper lobe partially calcified nodule which likely represents a hamartoma or less likely a calcified lymph node. ??There is been interval resolution of the previously described left apical complex cystic lesion, which was likely infectious/inflammatory nature. ??Stable 6 mm left lower lobe solid round nodule at table position -616.0. ??There is new mild bibasilar tree-in-bud opacities which could represent aspiration. ??No pleural effusion or pneumothorax. Subcentimeter right thyroid nodule. ??No axillary, supraclavicular, mediastinal, or hilar lymphadenopathy. ??Normal caliber thoracic aorta. ??Normal heart size. ??Trace pericardial fluid. ??Coronary vascular calcifications. Bilateral renal cysts and hypoechoic lesions which are too small to characterize. ??Degenerative spine changes with exaggerated kyphosis centered at the midthoracic spine. ??Old minimally nondisplaced, nonunited left posterior 10th rib rib fracture. ??No suspicious osseous lesions. Procedure Note Suzanne Cody MD - 08/16/2022 EXAMINATION: Computed tomography of the chest with intravenous contrast HISTORY: Floor of mouth squamous cell carcinoma TECHNIQUE: Transaxial computed tomographic images of the chest were obtained with intravenous contrast according to the standard protocol after the uneventful administration of 100 mL Opti-Ray 350 intravenous contrast. COMPARISON: CT scan dated 09/28/2021 FINDINGS: Mild debris in the airways. Severe centrilobular and paraseptal apical predominant emphysema with apical pleural-parenchymal scarring.. Stable appearing 2 cm right upper lobe partially calcified nodule which likely represents a hamartoma or less likely a calcified lymph node. There is been interval resolution of the previously described left apical complex cystic lesion, which was likely infectious/inflammatory nature. Stable 6 mm left lower lobe solid round nodule at table position -616.0. There is new mild bibasilar tree-in-bud opacities which could represent aspiration. No pleural effusion or pneumothorax. Subcentimeter right thyroid nodule. No axillary, supraclavicular, mediastinal, or hilar lymphadenopathy. Normal caliber thoracic aorta. Normal heart size. Trace pericardial fluid. Coronary vascular calcifications. Bilateral renal cysts and hypoechoic lesions which are too small to characterize. Degenerative spine changes with exaggerated kyphosis centered at the midthoracic spine. Old minimally nondisplaced, nonunited left posterior 10th rib rib fracture. No suspicious osseous lesions. IMPRESSION: 1. No definitive evidence for intrathoracic metastatic disease. 2. Stable indeterminate 6 mm left lower lobe pulmonary nodule. 3. New scattered bibasilar tree-in-bud opacities are favored to represent infectious or inflammatory post aspiration changes. Dictated by: Milton Dale M.D. The radiology attending physician has personally reviewed this study, and had reviewed and/or edited this written report and agrees with it. 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 Medication Sig Dispense Quantity Refills Last Filled Start D ate End Date metoprolol XL (TOPROL-XL) 25 mg extended release tablet 06/30/2022 famotidine (PEPCID) 40 mg tablet 08/04/2022 11/29/2022 added in this encounter Care Teams Pyrotechnician Relationship Specialty Start Date End Date Liliana May MD [address] [address] PCP - General Family Medicine 01/01/21 Moose Singleton MD [address] [facility] [address] [place] [id number] Consulting Physician Otolaryngology 09/27/21 documented as of this encounter
--- OUTSIDE RECORDS SUMMARY | 2024-08-08 21:30 | XMS_ITS | Encounter Summary ---
Author Organization [facility] Address [address] [place] [address] Phone Care Team Providers Care Road Driver Name Role Phone Liliana May MD Primary Care Provider Moose Singleton MD Unavailable [phone] Encounter Details Date Type Department Care Team (Late st Contact Info) Description 08/17/2022 Orders Only [facility] ([facility]) - [facility] ENT [address] [facility] Advanced Medicine 11th [place] [address] [place] [id number] Moose Singleton MD [address] [place] [address] 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) [...] unspecified documented in this encounter Care Teams Road Driver Relationship Specialty Start Date End Date Liliana May MD [address] [place] [address] PCP - General Family Medicine 01/01/21 Moose Singleton MD [address] [place] [address] Consulting Physician Otolaryngology 09/27/21 documented as of this encounter
--- OUTSIDE RECORDS SUMMARY | 2024-08-08 21:30 | XMS_ITS | Encounter Summary ---
Author Organization [facility] Address [address] [place] [address] Phone Care Team Providers Care Olive Grader Name Role Phone Liliana May MD Primary Care Provider Moose Singleton MD Unavailable [phone] Encounter Details Date Type Department Care Team (Late st Contact Info) Description 10/26/2021 3:20 PM CDT Office Visit [place] [facility] ([facility] - [facility] ENT [address] [facility] 11th [place] [address] [place] [id number] Moose Singleton MD [address] [place] [address] Head and neck cancer (CMS/HCC) [...] Progress Notes * Moose Singleton MD - 10/26/2021 3:20 PM CDT [facility] Department of Otolaryngology Division of Head and Neck Surgery 10/26/2021 Chilo Cross 1950 [phone] Referred by: Tavia Med onc: TBD Rad [...] but has otherwise been doing well. He otherwise denies changes in voice, stridor, [...] day after meals 473 mL 0 ??? [START ON 10/28/2021] clopidogreL (PLAVIX) 75 mg tablet Take 1 tablet (75 mg total) by mouth every morning ??? Eliquis 5 mg tablet Take 1 tablet (5 mg total) by mouth 2 (two) times a day ??? tasvdmmiyju-vpzdttwyy-fiaylktu (Trelegy Ellipta) 100-62.5-25 mcg inhaler Inhale 1 [...] Administered ??? Influenza, Unspecified 05/14/2021 ? ? Navidog (J&J) SARS-CoV-2 Vaccination 11/10/2020 ??? Moderna SARS-CoV-2 [...] tissue and minimal blood. Some exposed bone remains. Oropharynx: No mass or lesion. Tonsillar fossa [...] are normal. The limited view of the [place] is unremarkable. Other than a [...] Eliquis but has otherwise been doing well. - tumor board to discuss adjuvant therapy if any - f/u in 3 mo Moose Singleton MD PhD Associate Store Leader Attending, Head and Neck Surgery Department of Otolaryngology [facility] [phone] (Clinical nurse Bety Keith) Pager [phone] documented in this encounter Plan of Treatment Not on file documented as of this encounter Visit Diagnoses Diagnosis Head and neck cancer (HCC)- Primary documented in this encounter Care Teams Olive Grader Relationship Specialty Start Date End Date Liliana May MD [address] [place] [address] PCP - General Family Medicine 01/01/21 Moose Singleton MD [address] [place] [address] Consulting Physician Otolaryngology 09/27/21 documented as of this encounter
--- OUTSIDE RECORDS SUMMARY | 2024-08-08 21:30 | XMS_ITS | Encounter Summary ---
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) Procedures CT Neck Soft Tissue W Contrast Moose Singleton MD [address] [place] [address] Phone: tel: fax: [address] [phone] Referral ID Status Reason Start Date Expiration Date Visits Re quested Visits Authorized [id number] Closed 08/16/2022 09/15/2023 1 1 INE MANAGER * MRI/CAT/PET Scan (Routine) - Closed Specialty Diagnoses / Procedures Referred By Contkellee t Referred To Contact Radiology Diagnoses 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) Procedures CT Chest W Contrast CT Neck Chest W Contrast Moose Singleton MD [address] [place] [address] Phone: tel: fax: [address] [phone] Referral ID Status Reason Start Date Expiration Date Visits Re quested Visits Authorized [id number] Closed 08/16/2022 09/15/2023 1 1 INE MANAGER Reason for Visit * MRI/CAT/PET Scan (Routine) - Closed Specialty Diagnoses / Procedures Referred By Contac t Referred To Contact Radiology Diagnoses 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) Procedures CT Chest W Contrast CT Neck Chest W Contrast Moose Singleton MD [address] [place] [address] Phone: tel: fax: [address] [phone] Referral ID Status Reason Start Date Expiration Date Visits Re quested Visits Authorized [id number] Closed 08/16/2022 09/15/2023 1 1 Encounter Details Date Type Department Care Team (Latest Contact Info) Description 08/16/2022 12:33 PM AIRLINE MANAGER - 08/16/2022 11:59 PM AIRLINE MANAGER Hospital Encounter [facility] [address] [place] [address] Moose Singleton MD [address] [place], [place] [id number] 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) (HCC) Discharge Disposition: Discharge to home or [...] (TOPROL-XL) 25 mg extended release tablet 06/30/2022 tamsulosin (FLOMAX) 0.4 mg extended release capsule Take 0.4 mg by mouth every morning 07/28/2021 clopidogreL (PLAVIX) 75 mg tablet Take 1 tablet (75 mg total) by mouth every morning 10/28/2021 11/30/19 23 famotidine (PEPCID) 40 mg tablet 08/04/2022 11/30/19 23 ipratropium-albute roL (DUO-NEB) 0.5-2.5 mg/3 mL nebulizer solutionIndication s:Chronic Obstructive Pulmonary Disease with Bronchospasms Take by nebulization every 6 (six) hours 04/02/20 24 oxyCODONE (ROXICODONE) 5 mg immediate release tabletIndications: [...] CONTRAST Schedule Routine, Read Routine (OP Routine) 08/16/2022 1:39 PM AIRLINE MANAGER 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) (HCC) CT SOFT TISSUE NECK W CONTRAST Schedule Routine, Read Routine (OP Routine) 08/16/2022 1:39 PM AIRLINE MANAGER 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) (HCC) POCT CREATININE - DEVICE Routine 08/16/2022 1:00 PM AIRLINE MANAGER documented in this encounter Results * CT Neck Soft Tissue W Contrast (08/16/2022 1:39 PM AIRLINE MANAGER) Anatomical Region Laterality Modality Head and Neck N/A Computed Tomogra phy 08/16/2022 2:45 PM AIRLINE MANAGER Impressions 08/16/2022 5:20 PM AIRLINE MANAGER Evaluation of floor of mouth is limited by streak artifact secondary to dental tenriism. However no definitive evidence of residual or recurrent enhancing mass in the mouth, and no cervical lymphadenopathy. Dictated by: Kwaku Poe MD The radiology attending physician has personally reviewed this study, and had reviewed and/or edited this written report and agrees with it. Electronically signed by: Fay Daly M.D. 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 TECHNIQUE: CT of the neck was performed according to standard protocol after the uneventful administration of intravenous contrast. Contrast information: 90 mL Optiray-350 COMPARISON: CT 05/17/22, 09/28/21. FINDINGS: Review of the topogram demonstrates multiple dental replacements. Small hypoattenuating defect in the floor of mouth, likely postsurgical change from prior resection. ??Scattered subcentimeter lymph nodes are seen in the neck. None are pathologically enlarged or abnormally enhancing. The muscles of the neck are normal. Vessels of the neck demonstrate normal course and caliber. Fascial planes are preserved and the deep spaces of the neck are normal. The visualized airway is widely patent. Unchanged right thyroid nodules which are better characterized on recent sonogram. Evaluation of floor of mouth limited by streak artifact secondary to dental replacements. However no definitive evidence of residual or recurrent enhancing mass. The base of the skull and the temporal bones are normal. Limited views of the brain including the cerebellum and brainstem are normal. The imaged paranasal sinuses are normal. ??The imaged mastoid air cells are normal. ?? Unchanged cystic subcutaneous lesion in the midline of the posterior lower neck soft tissues is most compatible with a sebaceous cyst. Mild spinal canal stenosis and bilateral neuroforaminal stenosis at C5-C6. Severe biapical emphysematous changes, unchanged. 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 TECHNIQUE: CT of the neck was performed according to standard protocol after the uneventful administration of intravenous contrast. Contrast information: 90 mL Optiray-350 COMPARISON: CT 05/17/22, 09/28/21. FINDINGS: Review of the topogram demonstrates multiple dental replacements. Small hypoattenuating defect in the floor of mouth, likely postsurgical change from prior resection. Scattered subcentimeter lymph nodes are seen in the neck. None are pathologically enlarged or abnormally enhancing. The muscles of the neck are normal. Vessels of the neck demonstrate normal course and caliber. Fascial planes are preserved and the deep spaces of the neck are normal. The visualized airway is widely patent. Unchanged right thyroid nodules which are better characterized on recent sonogram. Evaluation of floor of mouth limited by streak artifact secondary to dental replacements. However no definitive evidence of residual or recurrent enhancing mass. The base of the skull and the temporal bones are normal. Limited views of the brain including the cerebellum and brainstem are normal. The imaged paranasal sinuses are normal. The imaged mastoid air cells are normal. Unchanged cystic subcutaneous lesion in the midline of the posterior lower neck soft tissues is most compatible with a sebaceous cyst. Mild spinal canal stenosis and bilateral neuroforaminal stenosis at C5-C6. Severe biapical emphysematous changes, unchanged. IMPRESSION: Evaluation of floor of mouth is limited by streak artifact secondary to dental tenriism. However no definitive evidence of residual or recurrent enhancing mass in the mouth, and no cervical lymphadenopathy. Dictated by: Kwaku Poe MD The radiology attending physician has personally reviewed this study, and had reviewed and/or edited this written report and agrees with it. Electronically signed by: Fay Daly M.D. [facility] Cornelio Singleton MD IM CT PROCEDURES Ernestine l Result * CT Chest W Contrast (08/16/2022 1:39 PM AIRLINE MANAGER) Anatomical Region Laterality Modality Body N/A Computed Tomogra phy 08/16/2022 2:03 PM AIRLINE MANAGER Impressions 08/16/2022 5:58 PM AIRLINE MANAGER 1. ??No definitive evidence for intrathoracic metastatic [...] Suzanne Cody MD Narrative 08/16/2022 5:58 PM AIRLINE MANAGER EXAMINATION: ??Computed tomography of the chest with [...] Electronically signed by: Suzanne Cody MD Moose Singleton MD IMG CT PROCEDURES Ernestine l Result * (ABNORMAL) POCT creatinine (08/16/2022 1:00 PM AIRLINE MANAGER) Creatinine POC 1.4(H) 0.7 - 1.3 mg/dL [facility] Blood 08/16/2022 1:00 PM AIRLINE MANAGER 08/16/2022 1:00 PM AIRLINE MANAGER Liliana May MD LAB POCT ORDERABLES - D EVICE Final Result Performing Organization Address City/State/[facility] Co de Phone Number [facility] Department [place] [address] documented in this encounter Visit Diagnoses Diagnosis 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) Malignant neoplasm of floor of mouth, part unspecified documented in this encounter Administered Medications Inactive Administered Medications - up to 3 most recent administrations Medication Order MAR Action Action Date Dose Rate Site ioversoL (OPTIRAY 350) injection 100 mL 100 mL, intravenous, Once in imaging, contrast, Starting on 08/16/22 at 1322, For 1 dose Contrast Given 08/16/2022 1:23 PM AIRLINE MANAGER 90 mL ioversoL (OPTIRAY 350) injection 50 mL 50 mL, intravenous, Once in imaging, contrast, Starting on 08/16/22 at 1322, For 1 dose Contrast Given 08/16/2022 1:23 PM AIRLINE MANAGER 42 mL documented in this encounter Care Teams Hang Gliding Instructor Relationship Specialty Start Date End Date Liliana May MD [address] [place] [address] PCP - General Family Medicine 01/01/21 Moose Singleton MD [address] [place], [place] [id number] Consulting Physician Otolaryngology 09/27/21 documented as of this encounter
--- OUTSIDE RECORDS SUMMARY | 2024-08-08 21:30 | XMS_ITS | Encounter Summary ---
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 CT Soft Tissue Neck with Contrast Moose Singleton MD [address] [place] [address] Phone: tel: fax: [facility] [address] [place] [address] Referral ID Status Reason Start Date Expiration Date Visits Re quested Visits Authorized [id number] Closed 02/01/2022 03/03/2023 1 1 Reason for Visit * Reason Comments Follow-up Encounter Details Date Type Department Care Team (Late st Contact Info) Description 02/01/2022 11:40 AM CDT Office Visit [place] [facility] ([facility]) - [facility] ENT [address] [facility] 11th [place] [address] [place] [address] Moose Singleton MD [address] [place] [address] 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) [...] - Inhaled Oxygen Concentration - - Weight 69.1 kg (152 lb 6.4 oz) 02/01/2022 11:43 AM CDT Height - - Body Mass Index 20.67 10/16/2021 12:39 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 dfgmrcwrzlt-pmieetlzs-buxffdwg (Trelegy Ellipta) 100-62.5-25 mcg inhaler Inhale 1 [...] Administered ??? Influenza, Unspecified 05/14/2021 ? ? Chuck (J&J) SARS-CoV-2 Vaccination 11/10/2020 ??? Moderna SARS-CoV-2 Vaccination (12+ YRS) 07/15/2021 REVIEW OF [...] easy bruising PHYSICAL EXAM Vital Signs: Wt 69.1 kg (152 lb 6.4 oz) BMI 20.67 kg/m?? General: Well-developed, well-nourished. No distress. Communication [...] no longer remains and is completely healed. Oropharynx: No mass or lesion. Tonsillar fossa [...] are normal. The limited view of the [place] is unremarkable. Other than a [...] cm AP. Size isthmus: 0.3 cm AP. ?? Estimated total number of nodules >/= 1 cm: 2 Number of spongiform nodules >/= 2 cm not described below (TR1): 0 Number of mixed cystic and solid nodules >/= 1.5 cm not described below (TR2): 0 ?? Nodule 1: Location: Right mid posterior . Size: 1.3 cm craniocaudal x 0.9 cm transverse (the AP dimension is unable to be determined) Maximum Size: 1.3 cm Composition: Cannot determine (2) Echogenicity: Cannot determine (1) Shape: Cannot determine (0) Margins: Cannot determine (0) Echogenic foci: Macrocalcifications (1) ?? ACR TI-RADS total points: 4 ACR TI-RADS [...] foci appear not associated with cystic spaces). ?? ACR TI-RADS total points: 5 ACR TI-RADS risk category: TR4 (4-6 points) ?? ACR TI-RADS recommendation: Follow-up US in 1 year ?? No lymphadenopathy is seen in the central or lateral neck. ?? IMPRESSION: 1. Follow-up thyroid ultrasound in one year is recommended for the right thyroid nodules. IMPRESSION/PLAN: He is now s/p composite resection [...] - f/u in 3 mo - imaging now and then followup Number/complexity of problems addressed: As noted above, this patient has a chronic illness with exacerbation, progression, or side effects of treatment, namely head and neck cancer Amount/complexity of data reviewed and analyzed: I have reviewed results of the following tests (including review of prior external notes, review results of each unique test, and ordering each unique test, assessment requiring an independent historian): US thyroid 10/01/21, CTA 10/01/[address] neck now Moose Singleton MD PhD Hairspring Truing Inspector Attending, Head and Neck Surgery Department of Otolaryngology [facility] [phone] (Clinical nurse Bety Keith) Pager [phone] documented in this encounter Plan of Treatment Not on file documented as of this encounter Results * CT Soft Tissue Neck with Contrast (05/17/2022 1:43 PM CDT) Anatomical Region Laterality Modality Head and Neck N/A Computed Tomogra phy 05/17/2022 4:4 3 PM CDT Impressions 05/17/2022 5:54 PM CDT Evaluation of floor of mouth limited by streak artifact secondary to dental scientologist. However no definitive evidence of residual or [...] are normal. The limited view of the [place] is unremarkable. Right lens replacement, [...] are normal. The limited view of the [place] is unremarkable. Right lens replacement, [...] limited by streak artifact secondary to dental scientologist. However no definitive evidence of residual or recurrent enhancing mass in the mouth, and no cervical lymphadenopathy. Dictated by: Kavon Clayton MD The radiology attending physician has personally reviewed this study, and had reviewed and/or edited this written report and agrees with it. 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
--- OUTSIDE RECORDS SUMMARY | 2024-08-08 21:31 | XMS_ITS | Encounter Summary ---
Author Organization [facility] Address [address] [place] [address] Phone Care Team Providers Care Radio Interference Expert Name Role Phone Liliana May MD Primary Care Provider Moose Singleton MD Unavailable [phone] Encounter Details Date Type Department Care Team (Late st Contact Info) Description 09/28/2021 Orders Only [place] [facility] ([facility]) - [facility] ENT [address] [facility] 11th [place] [address] [place] [address] Moose Singleton MD [address] [place] [address] Thyroid nodule (Primary Dx) Social History Tobacco Use Types Packs/Day Years Used Date Smoking Tobacco: Never Sex and Gender Information Value Date Recorded Sex Assigned at Not on file Legal Sex Male 8:41 AM CDT Gender Identity Not on file Sexual Orientation Not on file documented as of this encounter Plan of Treatment Not on file documented as of this encounter Visit Diagnoses Diagnosis Thyroid nodule- Primary Nontoxic uninodular goiter documented in this encounter Historical Medications * This list may reflect changes made after this encounter. fluticasone-umecl idin-vilanter (Trelegy Ellipta) 100-62.5-25 mcg inhaler Inhale 1 puff every morning 01/21/2008 albuterol sulfate (PROAIR HFA INHAL) as needed 01/21/2008 added in this encounter Care Teams Radio Interference Expert Relationship Specialty Start Date End Date Liliana May MD [address] [place] [address] PCP - General Family Medicine 01/01/21 Moose Singleton MD [address] [place] [address] Consulting Physician Otolaryngology 09/27/21 documented as of this encounter
--- OUTSIDE RECORDS SUMMARY | 2024-08-08 21:31 | XMS_ITS | Encounter Summary ---
Author Organization [facility] Address [address] [place] [address] Phone Care Team Providers Care Clinical Assistant Name Role Phone Liliana May MD Primary Care Provider Moose Singleton MD Unavailable [phone] Encounter Details Date Type Department Care Team (Late st Contact Info) Description 10/16/2021 Telephone [place] [facility] ([facility]) - [facility] [address] [facility] Advanced Medicine 11th [place] [address] [place] [address] Bety Keith, RN Social History Tobacco Use Types Packs/Day [...] Miscellaneous Notes * Telephone Encounter - Bety Keith RN - 10/16/2021 10:56 AM CST Spoke with Chilo about bleeding concerns. He's 1 week post op Composite resection and woke up to bloody spit on his pillow. He resumed his anticoagulants today. Instructed to apply pressure with gauze and hold for 20 minutes. Instructed to send pictures via [employer] but had technical difficulties. After speaking with Dr. Singleton, Pt still complains of spitting out some blood, instructed patient togo to ER. He is accompanied by and will be arriving shortly. OR [place] documented in this encounter Plan of Treatment Not on file documented as of this encounter Visit Diagnoses Not on filedocumented in this encounter Care Teams Clinical Assistant Relationship Specialty Start Date End Date Liliana May MD [address] [facility] [address] [place] [address] PCP - General Family Medicine 01/01/21 Moose Singleton MD [address] [place] [address] Consulting Physician Otolaryngology 09/27/21 documented as of this encounter
--- OUTSIDE RECORDS SUMMARY | 2024-08-08 21:31 | XMS_ITS | Encounter Summary ---
Author Organization [facility] Address [address] [place] [address] Care Team Providers Care Premium Representative Name Role Phone Liliana May MD Primary Care Provider Moose Singleton MD Unavailable [phone] Encounter Details Date Type Department Care Team (Late st Contact Info) Description 10/08/[address] [facility] Radiation Oncology at [facility] [address] [place] [address] Scot Pollock MD [address] [facility] [address] [place] [address] Social History Tobacco Use Types Packs/Day Years Used Date Smoking Tobacco: Every Day Cigarettes 0.4 57 Started: 1965 Smokeless Tobacco: Never AUDIT-C Answer Date Recorded Q1: How often [...] encounter Miscellaneous Notes * Telephone Encounter - Benjamín Fisher - 10/08/2021 9:47 AM CST Radiation Oncology Consult Intake Additional Notes Insurance Carrier / Plan? Medicare ab for life In Network / Out of Network? Yes/No Physician Additional Notes Do you have a primary care physician? Y Dr. May [phone] Have you been seen by a cancer physician? Y Dr Singleton Have you seen a radiation doctor? N Have you seen a surgeon for your cancer? Y Dr Singleton Are there any other specialists in your care? Y Shackler Dr Ulices Gao [phone] Yes/No Date(s) Location(s) Biopsy performed? Y 09/04/2021 [facility] Did you have a CT scan? Y [facility] Did you have a PET scan? ? Did you have a (MRI) scan? ? Did you receive chemotherapy? N Did you receive radiation? N Since your cancer diagnosis, have you been in the hosptial or had surgery? N K ATTENDANT documented in this encounter Plan of Treatment Not on file documented as of this encounter Visit Diagnoses Not on filedocumented in this encounter Care Teams Premium Representative Relationship Specialty Start Date End Date Liliana May MD [address] [address] PCP - General Family Medicine 01/01/21 Moose Singleton MD [address] [facility] [address] [place] [address] Consulting Physician Otolaryngology 09/27/21 documented as of this encounter
--- OUTSIDE RECORDS SUMMARY | 2024-08-08 21:31 | XMS_ITS | Encounter Summary ---
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) Procedures CTA Abdominal Aorta And Bilateral Iliofemoral Runoff Moose Singleton MD [address] [place] [address] Phone: tel: fax: [address] [phone] Referral ID Status Reason Start Date Expiration Date Visits Re quested Visits Authorized [id number] Closed 09/28/2021 10/28/2022 1 1 A HUT TEAM MEMBER Reason for Visit * MRI/CAT/PET Scan (Routine) - Closed Specialty Diagnoses / Procedures Referred By Contac t Referred To Contact Radiology Diagnoses 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) Procedures CTA Abdominal Aorta And Bilateral Iliofemoral Runoff Moose Singleton MD [address] [address] Phone: tel: fax: [facility] [address] [place] [address] Referral ID Status Reason Start Date Expiration Date Visits Re quested Visits Authorized [id number] Closed 09/28/2021 10/28/2022 1 1 Encounter Details Date Type Department Care Team (Latest Contact Info) Description 10/01/2021 9:25 AM PIZZA HUT TEAM MEMBER Hospital Encounter [facility] Radiology [facility] [address] [place] [address] Moose Singleton MD [address] [place] [address] FOM (cancer of floor of mouth) ([facility]) ([facility]) Discharge Disposition: Discharge to home or self [...] 200 mg by mouth as needed 06/24/2021 fluticasone-umecli din-vilanter (Trelegy Ellipta) 100-62.5-25 mcg inhaler Inhale 1 puff every morning 01/21/2008 losartan (COZAAR) 25 mg tablet Take 25 mg by mouth every morning 06/27/2021 tamsulosin (FLOMAX) 0.4 mg extended release capsule Take 0.4 mg by mouth every morning 07/28/2021 amoxicillin-clavul anate (AUGMENTIN) 875-125 mg per tablet Take 1 tablet by mouth 2 (two) times a day for 14 days 28 tablet 10/11/2021 acetaminophen (TYLENOL) 500 mg tablet Take 2 tablets (1,000 mg total) by mouth every 6 (six) hours as needed for pain 30 tablet 10/11/2021 2 chlorhexidine (PERIDEX) 0.12 % solution Apply 15 mL to the mouth or throat 3 (three) times a day after meals 473 mL 10/11/2021 3 clopidogreL (PLAVIX) 75 mg tablet Take 75 mg by mouth every morning 07/15/2021 2 doxycycline 100 mg tablet 06/24/2021 2 Eliquis 5 mg tabletIndications: atrial fibrillation Take 5 mg by mouth 2 (two) times a day 09/11/2021 2 furosemide (LASIX) 20 mg tablet Take 20 mg by mouth as needed 06/24/2021 2 ibuprofen (ADVIL,MOTRIN) 600 mg tablet Take 1 tablet (600 mg total) by mouth every 6 (six) hours as needed for pain 30 tablet 10/11/2021 2 metoprolol XL (TOPROL-XL) 50 mg extended release tabletIndications: for HR Take 50 mg by mouth every morning 06/27/2021 2 omeprazole (PriLOSEC) 40 mg capsuleIndications :reflux Take 40 mg by mouth every morning 08/06/2021 3 oxyCODONE (ROXICODONE) 5 mg immediate release tabletIndications: Pain Take 1 tablet (5 mg total) by mouth every 4 (four) hours as needed (intolerable pain) for up to 40 doses 40 tablet 10/11/2021 3 predniSONE (DELTASONE) 20 mg tablet 06/24/2021 2 documented as of this encounter Discharge Disposition Disposition Code Departure Means Destination Discharge to home or self care documented in this encounter Plan of Treatment Not on file documented as of this encounter Procedures Procedure Name Priority Date/Time Associated Diagnosis Comments CTA ABDOMINAL AORTA AND BILATERAL ILIOFEMORAL RUNOFF Schedule Routine, Read Routine (OP Routine) 10/01/2021 10:38 AM PIZZA HUT TEAM MEMBER FOM (cancer of floor of mouth) ([facility]/HCC) (HCC) documented in this encounter Results * CTA Abdominal Aorta And Bilateral Iliofemoral Runoff (10/01/2021 10:38 AM PIZZA HUT TEAM MEMBER) Anatomical Region Laterality Modality Body Bilateral Computed Tomogra phy 10/01/2021 11:2 6 AM PIZZA HUT TEAM MEMBER Impressions 10/01/2021 2:02 PM PIZZA HUT TEAM MEMBER 1. ??Right lower extremity: There is three-vessel [...] and agrees with it. Electronically signed by: aSmson Toro M.D. Narrative 10/01/2021 2:02 PM PIZZA HUT TEAM MEMBER EXAMINATION: ??CT ANGIOGRAPHY OF THE ABDOMEN, PELVIS, [...] no significant stenosis SMA: no significant stenosis EJMMA: Moderate stenosis at the origin. Right renal [...] Dose Rate Site ioversoL (OPTIRAY 350) syringe syringe 117 mL 117 mL, intravenous, Once in imaging, contrast, Starting on Pratima 10/01/21 at 1041, For 1 dose Contrast Given 10/01/2021 10:26 AM PIZZA HUT TEAM MEMBER 117 mL documented in this encounter Orders Medications Ordered That José Manuel ht Not Have Been Administered Count Last Ordered Date First Ordered Date ioversoL (OPTIRAY 350) syrin ge syringe 117 mL 1 10/01/2021 documented in this encounter Care Teams Political Science Professor Relationship Specialty Start Date End Date Liliana May MD [address] [place] [address] PCP - General Family Medicine 01/01/21 Moose Singleton MD [address] [place] [address] Consulting Physician Otolaryngology 09/27/21 documented as of this encounter
--- OUTSIDE RECORDS SUMMARY | 2024-08-08 21:31 | XMS_ITS | Encounter Summary ---
Author Organization [facility] Address [address] [place] [address] Care Team Providers Care Forest Pathology Professor Name Role Phone Liliana May MD Primary Care Provider Encounter Details Date Type Department Care Team (Late st Contact Info) Description 01/01/2021 Orders Only [facility] Cardiology [address] [place] [address] Provider, MD Radha [address] [place] [address] Social History Tobacco Use Types Packs/Day Years [...] Procedure Name Priority Date/Time Associated Diagnosis Comments CARDIOLOGY DOCUMENT SCAN Routine 01/01/2021 documented in this encounter Results * SCAN - CARDIOLOGY (01/01/2021) Anatomical Region Laterality Modality Other Historical Provider [facility] GHAZALA GAVIRIA Final Result documented in this encounter Visit Diagnoses Not on filedocumented in this encounter Care Teams Forest Pathology Professor Relationship Specialty Start Date End Date Liliana May MD [address] [place] [address] PCP - General Family Medicine 01/01/21 documented as of this encounter
--- OUTSIDE RECORDS SUMMARY | 2024-08-08 21:31 | XMS_ITS | Encounter Summary ---
Author Organization [facility] Healthcare Address [address] [place] [address] Care Team Providers Care Salvage Inspector [employer] Name Role Phone Liliana May MD Primary Care Provider Moose Singleton MD Unavailable [phone] Encounter Details Date Type Department Care Team (Late st Contact Info) Description 09/29/2021 Telephone [facility] Radiology [address] [place] [address] Jennie Worthington RN Social History Tobacco Use Types Packs/Day Years Used Date Smoking Tobacco: Never Sex and Gender Information Value Date Recorded Sex Assigned at Not on file Legal Sex Male 8:41 AM CDT Gender Identity Not on file Sexual Orientation Not on file documented as of this encounter Miscellaneous Notes * Telephone Encounter - Jennie Worthington RN - 09/29/2021 3:19 PM CST Referral from Dr. Singleton or Ultrasound and US Guided Thyroid FNA Scheduled as requested 10/01/21 at 1:45 with arrival 30 minutes prior to procedure Location: [facility], [address] [place] [id number]. [place] on 3rd floor Radiology Registration Procedure Instructions: Does NOT need to hold Medications Does NOT need to be NPO Does NOT need a Pearl Cutter Patient given instructions, verbalized understanding. R TRANSFORMER ASSEMBLER * Telephone Encounter - Jordi Olivo MD - 09/29/2021 9:09 AM POWER TRANSFORMER ASSEMBLER Approved for same day thyroid ultrasound + FNA if meets criteria. R TRANSFORMER ASSEMBLER * Telephone Encounter - Jennie Worthington RN - 09/29/2021 8:[address] Olivo, Maico Hannah. I have received a Thyroid FNA request from Dr. Singleton. No ultrasound has been performed of the thyroid, however, a CT was completed yesterday. Per CT Imaging dated 09/28/21: There is a 1.0 cm hypoattenuating right thyroid lobe nodule seen anterior to the calcification. Referring office reports they need it urgently biopsied before his surgery 3/3 Pt has history of Squamous Cell Carcinoma floor of mouth Please advise if ok to schedule for same day US and possible FNA. Thank you, November R TRANSFORMER ASSEMBLER documented in this encounter Plan of Treatment Not on file documented as of this encounter Visit Diagnoses Not on filedocumented in this encounter Care Teams Salvage Inspector [employer] Relationship Specialty Start Date End Date Liliana May MD [address] [place] [address] PCP - General Family Medicine 01/01/21 Moose Singleton MD [address] [place] [address] Consulting Physician Otolaryngology 09/27/21 documented as of this encounter
--- OUTSIDE RECORDS SUMMARY | 2024-08-08 21:31 | XMS_ITS | Encounter Summary ---
Author Organization [facility] Address [address] [place] [address] Care Team Providers Care Lift Supervisor Name Role Phone Liliana May MD Primary Care Provider Encounter Details Date Type Department Care Team (Late st Contact Info) Description 05/22/2021 Orders Only [facility] Cardiology [address] [phone] Kofi Umanzor MD [address] [facility] [address] [address] Social History Tobacco Use Types Packs/Day Years [...] Associated Diagnosis Comments CARDIOLOGY DOCUMENT SCAN Routine 05/22/2021 documented in this encounter Results * SCAN - CARDIOLOGY (05/22/2021) Anatomical Region Laterality Modality Other Kofi Umanzor MD CV CARDIAC SERVICES PROC EDURES Final Result documented in this encounter Visit Diagnoses Not on filedocumented in this encounter Care Teams Lift Supervisor Relationship Specialty Start Date End Date Liliana May MD [address] [facility] [address] [place] [address] PCP - General Family Medicine 01/01/21 documented as of this encounter
--- OUTSIDE RECORDS SUMMARY | 2024-08-08 21:31 | XMS_ITS | Encounter Summary ---
Author Organization [facility] Healthcare Address [address] [place] [address] Care Team Providers Care Brand Sales Manager Name Role Phone Liliana May MD Primary Care Provider Moose Singleton MD Unavailable [phone] Reason for Visit * Reason Comments Post-op Problem Encounter Details Date Type Department Care Team (Latest Contact Info) Description 10/16/2021 3:46 PM CYTOPATHOLOGY TECHNOLOGIST - 10/18/2021 10:11 AM CDT Hospital Encounter [facility] [address] [place] [address] Bret Blas MD [address] [place] [address] Moose Singleton MD [address] [place] [address] Oral bleeding (Primary Dx) Discharge Disposition: Discharge to home or self [...] CDT Inhaled Oxygen Concentration - - Weight 66.9 kg (147 lb 8 oz) 10/16/2021 10:25 PM CYTOPATHOLOGY TECHNOLOGIST Height 182.9 cm (6') 10/16/2021 12:39 PM CYTOPATHOLOGY TECHNOLOGIST Body Mass Index 20 10/16/2021 12:39 PM CYTOPATHOLOGY TECHNOLOGIST documented in this encounter Discharge Diagnoses Diagnosis Postprocedural hemorrhage of a digestive system organ or structure following other procedure - POSTPROCEDURAL HEMORRHAGE OF A DIGESTIVE SYSTEM ORGAN OR STRUCTURE FOLLOWING OTHER PROCEDURE Malignant neoplasm of floor of mouth, unspecified (HCC) - MALIGNANT NEOPLASM OF FLOOR OF MOUTH, UNSPECIFIED Unspecified atrial fibrillation (HCC) - UNSPECIFIED ATRIAL FIBRILLATION Atherosclerotic heart disease of [place] coronary artery without angina pectoris - ATHEROSCLEROTIC HEART DISEASE OF [place] CORONARY ARTERY WITHOUT ANGINA PECTORIS Hypertensive heart disease with heart failure (CMS/HCC) (HCC) - HYPERTENSIVE HEART DISEASE WITH HEART FAILURE Unspecified hypertensive heart disease with heart failure Heart failure, unspecified (CMS/HCC) (HCC) - HEART FAILURE, UNSPECIFIED Heart failure, unspecified Pulmonary hypertension, unspecified (HCC) - PULMONARY HYPERTENSION, UNSPECIFIED Presence of coronary angioplasty implant and graft - PRESENCE OF CORONARY ANGIOPLASTY IMPLANT AND GRAFT Personal history of nicotine dependence - PERSONAL HISTORY OF NICOTINE DEPENDENCE Chronic obstructive pulmonary disease, unspecified (HCC) - CHRONIC OBSTRUCTIVE PULMONARY DISEASE, UNSPECIFIED custodial (current) use of anticoagulants - NURSING HOME (CURRENT) USE OF ANTICOAGULANTS Long-term (current) use of anticoagulants custodial (current) use of antithrombotics/antiplatelets - NURSING HOME (CURRENT) USE OF ANTITHROMBOTICS/ANTIPLATELETS Contact with and (suspected) exposure to covid-19 - CONTACT WITH AND (SUSPECTED) EXPOSURE TO COVID-19 documented in this encounter Discharge Summaries * Maria Elena Wise MD - 10/17/2021 9:51 AM CST Inpatient Discharge Summary BRIEF OVERVIEW Admitting Provider: Moose Singleton MD Discharge Provider: Moose Singleton MD Primary Care Physician at Discharge: Liliana May MD [phone] Admission Date: 10/16/2021 Discharge Date: 10/17/2021 Admission Location: [facility] Problems/Diagnoses: Principal Problem: Oral bleeding Resolved Problems: No resolved hospital problems. DETAILS OF HOSPITAL STAY Presenting Problem/History of Present Illness: Chilo Cross is a 71 y.o. 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 He restarted his c lopidogrel and apixaban yesterday (10/15) as scheduled and woke up this morning with blood covering his pillow. He continued to experience bleeding from his mouth and called Dr. Singleton's office. He wasadvised to present to [place] ED for further evaluation. He denies any pain, fevers, chills, nausea,vomiting, difficulty breathing or with PO intake. Hospital Course: The patient's bleeding stopped with application of TXA soaked gauze to his floor of mouth. He was admitted to the head and neck surgery service for overnight observation. [place] [id number]. There were no acute events. He had no subsequent bleeding episodes. By the time of discharge, the patient's pain was adequate controlled and they were voiding spontaneously. Consults: 1. None Surgical Drains Remaining at Discharge and their Outputs: None Active Issues Requiring Follow-up: Post hospitalization follow up Postoperative wound healing Test Results Pending at Discharge: None Operative Procedures Performed: None Other Procedures: None Pertinent Test Results: No orders to display Abnormal Labs Reviewed CBC WITHOUT DIFFERENTIAL - Abnormal; Notable for the following components: Result Value WBC 17.5 (*) All other components within normal limits BASIC METABOLIC PANEL - Abnormal; Notable for the following components: BUN 37 (*) All other components within normal limits PROTIME-INR - Abnormal; Notable for the following components: PT 14.0 (*) INR 1.3 (*) All other components within normal limits EGFR - Abnormal; Notable for the following components: eGFR 60 (*) All other components within normal limits Recent Results (from the past 100 hour(s)) CBC without differential Collection Time: 10/16/21 3:56 PM Result Value Ref Range WBC 17.5 (H) 3.8 - 9.9 K/cumm Hgb 16.0 13.0 - 17.5 g/dL Hct 49.4 38.9 - 50.3 % Plt 268 150 - 400 K/cumm MPV 10.2 9.1 - 12.3 fL RBC 5.35 4.30 - 5.80 M/cumm MCV 92.3 81.3 - 96.4 fL MCH 29.9 27.1 - 33.3 pg MCHC 32.4 32.3 - 35.7 g/dL RDW CV 13.1 11.1 - 14.9 % RDW SD 43.9 35.7 - 48.1 fL NRBC abs 0.00 0.00 - 0.01 K/cumm Basic metabolic panel Collection Time: 10/16/21 3:56 PM Result Value Ref Range Sodium 136 135 - 145 mmol/L Potassium, pl 4.4 3.3 - 4.9 mmol/L Chloride 97 97 - 110 mmol/L CO2 28 22 - 32 mmol/L Anion gap 11 2 - 15 mmol/L BUN 37 (H) 8 - 25 mg/dL Creatinine 1.29 0.80 - 1.30 mg/dL Glucose 102 70 - 199 mg/dL Calcium 10.1 8.5 - 10.3 mg/dL Protime-INR Collection Time: 10/16/21 3:56 PM Result Value Ref Range PT 14.0 (H) 9.5 - 13.6 sec INR 1.3 (H) 0.9 - 1.2 aPTT Collection Time: 10/16/21 3:56 PM Result Value Ref Range aPTT 35 27 - 37 sec eGFR Collection Time: 10/16/21 3:56 PM Result Value Ref Range eGFR 60 (L) 90 - 130 mL/min/1.73 m2 Influenza A/B, RSV, and COVID-19 PCR Nasopharyngeal Collection Time: 10/16/21 7:21 PM Specimen: Nasopharyngeal Result Value Ref Range COVID-19 RNA Negative Negative Influenza A RNA Negative Negative Influenza B RNA Negative Negative RSV RNA Negative Negative First COVID-19 test? No Employeed in healthcare? No Group care resident? No Hospitalized? No Is patient in ICU? No Symptomatic as defined by CDC? No No results found for: MICROBIOLOGY, DIRECTEXAM Discharge Details Physical Exam at Discharge: Discharge Condition: stable Pulse: 89 Resp: 18 BP: 107/75 Temp: 36.4 ??C (97.5 ??F) Weight: 66.9 kg (147 lb 8 oz) Pertinent Exam Findings at Discharge: See last progress note Discharge Disposition: Code Status at Discharge: Full Code Discharge Instructions: See AVS Dietary Orders (From admission, onward) Start Ordered 10/17/21 1302 Adult Diet Full Liquid Diet effective now Question: ([facility]) Diet type Answer: Full Liquid 10/17/21 1301 Discharge Medications: Current Medications TAKE these medications * acetaminophen 325 mg tablet Take 650 mg by mouth every 6 (six) hours as needed for pain Commonly known as: TYLENOL * acetaminophen 500 mg tablet Take 2 tablets (1,000 mg total) by mouth every 6 (six) hours as needed for pain Commonly known as: TYLENOL amoxicillin-clavulanate 875-125 mg per tablet Take 1 tablet by mouth 2 (two) times a day for 14 days Commonly known as: AUGMENTIN benzonatate 200 mg capsule Take 200 mg by mouth as needed For: cough Commonly known as: TESSALON CALCIUM 500 + D (D3) ORAL Take by mouth every morning cetirizine 10 mg tablet Take 10 mg by mouth as needed for allergies Commonly known as: ZyrTEC chlorhexidine 0.12 % solution Apply 15 mL to the mouth or throat 3 (three) times a day after meals Commonly known as: PERIDEX clopidogreL 75 mg tablet Take 1 tablet (75 mg total) by mouth every morning Commonly known as: PLAVIX Start taking on: October 28, 2021 Eliquis 5 mg tablet Take 1 tablet (5 mg total) by mouth 2 (two) times a day For: atrial fibrillation Generic drug: apixaban Start taking on: October 24, 2021 furosemide 20 mg tablet Take 20 mg by mouth as needed Commonly known as: LASIX ibuprofen 600 mg tablet Take 1 tablet (600 mg total) by mouth every 6 (six) hours as needed for pain Commonly known as: ADVIL,MOTRIN ipratropium-albuteroL 0.5-2.5 mg/3 mL nebulizer solution Take by nebulization every 6 (six) hours For: bronchi muscle spasm resulting from COPD Commonly known as: DUO-NEB losartan 25 mg tablet Take 25 mg by mouth every morning Commonly known as: COZAAR omeprazole 40 mg capsule Take 40 mg by mouth every morning For: reflux Commonly known as: PriLOSEC oxyCODONE 5 mg immediate release tablet Take 1 tablet (5 mg total) by mouth every 4 (four) hours as needed (intolerable pain) for up to 40 doses For: pain Commonly known as: ROXICODONE PROAIR HFA INHAL as needed tamsulosin 0.4 mg extended release capsule Take 0.4 mg by mouth every morning Commonly known as: FLOMAX Trelegy Ellipta 100-62.5-25 mcg inhaler Inhale 1 puff every morning Generic drug: [id number] * This list has 2 medication(s) that are the same as other medications prescribed for you. Read the directions carefully, and ask your doctor or other care provider to review them with you. Outpatient Follow-Up: Future Appointments Date Time Provider Department Center 10/26/2021 2:00 PM Della Hensley SLP [facility] 10/26/2021 3:20 PM Moose Singleton MD [facility] Cosigned by Moose Singleton MD at 10/18/2021 11:40 AM CDT PATHOLOGY TECHNOLOGIST documented in this encounter Discharge Instructions * Discharge Instructions* Maria Elena Wise MD - 10/17/2021 12:39 PM CYTOPATHOLOGY TECHNOLOGIST ENT Discharge Instructions When to call your doctor: ??? You have a fever of more than 101.5. ??? You have redness or swelling around your incision. ??? The pain in your incision starts hurting very badly. ??? Your incision starts draining. ??? You notice a foul odor from surgical area. ??? You have pus, bleeding, or drainage around your incision site. ??? Your incision is opening. ??? You notice a foul odor. ??? You have persistent nausea and/or vomiting, ??? You feel dizzy or like you may pass out. ??? You have a hard time breathing. ??? You have any questions or concerns. Diet: Full Liquid Diet Activity: Do NOT LIFT ANYTHING GREATER THAN A GALLON OF MILK UNTIL YOUR FOLLOW UP APPOINTMENT. Light activity for the next 24 hours. Resume normal activity afterwards as tolerated. You may feel tired and run down after surgery. It is normal to sleep more or take more naps. Light activity is okbut avoid heavy house work, yard work or strenuous exercise. Short walks are encouraged. Activitiescan be slowly increased as tolerated. Do not drive, operative heavy machinery, or make important legal decisions for the next 24 hours orwhile taking narcotic pain medication. Driving privileges are left up to the discretion of your physician and will be discussed further at your follow up appointment. You cannot drive while taking narcotic pain medication. Do not smoke tobacco Smoking has been proven to interfere with the normal wound healing. Smoking will dramatically reduce the success rate of your surgery. Your primary care doctor can prescribe a patch to help you stop smoking if you would like. Medications: - Pain: ??? You may have been prescribed Acetaminophen (Tylenol) or you may buy it at any pharmacy or drugstore. You should take Acetaminophen (Tylenol) 650mg every 6 hours for pain. Taking this in addition to your narcotic pain medication will provide greater pain relief. Do not exceed 3g (3000mg) of Tylenol in a 24h period. ??? You have been prescribed oxycodone or another narcotic medication to help with your pain. You should only use this pain medication to help with pain that is not adequately controlled by tylenol. You should not drive while taking narcotic pain medication. Narcotic pain medication can make you constipated; take a stool softener as needed. - Stool Softener: Take stool softener (Klqv-hdb-sdzymrh or prescription) while taking narcotic medication to prevent constipation. Laxatives not recommended. - Anticoagulation/antiplatelet agents: Restart your Eliquis in 7 days (10/24/21) and your Plavix 3-4days after your Eliquis if you have no more bleeding. Follow up: You should follow up in [facility]'s clinic as scheduled below. [address] [place] [address] OTHER FOLLOW UP: 1. PCP - for management of all chronic illnesses Future Appointments Date Time Provider Department Center 10/26/2021 2:00 PM Della Hensley SLP [facility] 10/26/2021 3:20 PM Moose Singleton MD [facility] Phone numbers ??? Appointment Scheduling: ??? Urgent Concerns after hours or Weekends: Call and ask for the ENT resident staff command and control officer. ??? During Regular Business Hours (8am-5pm Tuesday through Tuesday): Dr. Singleton (Bety Keith RN): [phone] Questions: If you have any concerns or questions, or develop worrisome symptoms such as worsening pain or swelling, bleeding, fever, or vomiting, call your doctor. PATHOLOGY TECHNOLOGIST documented in this encounter Medications at Time of Discharge [...] day for 14 days 28 tablet 10/11/2021 10/26/19 22 acetaminophen (TYLENOL) 325 mg tablet Take 650 mg by mouth every 6 (six) hours as needed for pain 05/17/20 22 acetaminophen (TYLENOL) 500 mg tablet Take 2 tablets (1,000 mg total) by mouth every 6 (six) hours as needed for pain 30 tablet 10/11/2021 05/17/20 22 chlorhexidine (PERIDEX) 0.12 % solution Apply 15 mL to the mouth or throat 3 (three) times a day after meals 473 mL 10/11/2021 08/16/19 23 clopidogreL (PLAVIX) 75 mg tablet Take 1 tablet (75 mg total) by mouth every morning 10/28/2021 11/30/19 23 furosemide (LASIX) 20 mg tablet Take 20 mg by mouth as needed 06/24/2021 05/17/20 22 ibuprofen (ADVIL,MOTRIN) 600 mg tablet Take 1 tablet (600 mg total) by mouth every 6 (six) hours as needed for pain 30 tablet 10/11/2021 05/17/20 22 ipratropium-albute roL (DUO-NEB) 0.5-2.5 mg/3 mL nebulizer [...] or self care documented in this encounter Progress Notes * Kwan Benton RN - 10/17/2021 3:27 PM CST AMBROSIO Initial Assessment Interview Note Information Obtained From: Patient (10/17/211524) Admission Source: Non Health Care Facility Impression: 71 y.o. 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 Plan Includes: Evaluate and treat. Plan for a safe discharge. Primary Source of Transportation: Personal vehicle. Health Insurance Coverage: [employer] Prescription Coverage: yes Pharmacy: [facility] in [place] Primary Care Provider: Liliana May MD Prior to Admission: Primary Caregiver: Self Support System: Spouse/Significant Other Support system contact info (name, phone, availablity): [place] [phone] Home Care Services: No Durable Medical Equipment: Walker (wheeled) Living Arrangements: Spouse/significant other, Children (Adult son) Type of Residence: Private residence Steps in home? : Yes, Outside of home Number of steps outside:: 3 steps (10/17/211524) Potential discharge needs include: Home Health: (TBD) (10/17/21 152) Dialysis: No Behavioral Health Services: Behavioral Health Services: No (10/17/211524) Patient expects to be Discharged to: Private residence, (10/17/21 152) Additional Information: Lives with and adult son in a private residence. Patient's Identified Problem/Goal Problem: Ensure acute medical needs are met and that patient has a safe discharge plan. Goal: Secure a discharge plan that patient/family are agreeable with and ensure patient has continuum of care. Case management will follow for discharge planning and send referrals as needed. Goals include: To assure continuity of care, To maximize coping skills, To assure patient is in a safe environment and To assure access to community resources. Plan includes: 1. Collaboration with patient, MD, direct care nurse, Coal Pulverizing Operator, and other members of the health care team to assure needed interventions completed. 2. Return patient to optimal level of self-care post discharge. 3. Panel Monitor will follow for Discharge Planning - interventions as needed 4. Anticipated level of care at discharge 5. Planned Discharge Disposition Based on a comprehensive family assessment, assistance with instrumental activities of daily livingafter discharge will be provided by . Through the course of our work I determined that the possesses the skill and ability to provide and monitor the care of the patient when he or she returns home. has the capacity to provide/monitor/arrange for the care of the patient. Finally, we determined that has the knowledge of available resources and that combining them with their existing resources will suffice to sustain andcare for the patient when he or she returns home. The treatment team is aware of this information. All are in agreement with the aftercare plan. Lorena Benton RN PATHOLOGY TECHNOLOGIST * Maria Elena Wise MD - 10/17/2021 8:56 AM CST Otolaryngology - Head & Neck Surgery Daily Progress Subjective Chief complaint: Chief Complaint Patient presents with ??? Post-op Problem Interval History: - NAEON, AFVSS, no bleeding noted since approx 2 am - Patient feels well this morning, tolerating sips of water - Plan to discharge in evening if continues to fell well and not have bleeding Objective VITALS, 24HR MIN/MAX: Temp Min: 36.4 ??C (97.5 ??F) Max: 36.7 ??C (98.1 ??F) Pulse Min: 69 Max: 102 BP Min: 97/65 Max: 136/106 Resp Min: 17 Max: 18 SpO2 Min: 90 % Max: 99 % I&O I/O last 2 completed shifts: In: 525 [I.V.:525] Out: 665 [Urine:665] Net IO Since Admission: -165 mL [10/17/21 0931] Output by Drain (mL) 10/15/21 07 - 10/15/21 18510/15/21 1900 - 10/16/21 0659 10/16/21 07 - 10/16/21 18510/16/21 190 - 10/17/21 0659 10/17/21 0700 - 10/17/21 0931 Patient has no LDAs of requested type attached. Scheduled Continuous As needed amoxicillin-clavulanate, 875 mg of amoxicillin, oral, BID calcium carbonate-vitamin D3, 1 tablet, oral, QAM chlorhexidine, 15 mL, mouth/throat, TID PC wsjuokuantf-pksaibvbu-boogyncs, 1 puff, inhalation, Daily (RT) losartan, 25 mg, oral, QAM pantoprazole DR, 40 mg, oral, Daily sodium chloride 0.9%, 0.5-20 mL, intra-catheter, Q8H AMEE tamsulosin, 0.4 mg, oral, QAM tranexamic acid, 1,000 mg, topical, Q6H dextrose 5% and Lactated Ringer's, 75 mL/hr, Last Rate: 75 mL/hr (10/17/21 0900) ??? acetaminophen, 1,000 mg, 1,000 mg at 10/17/21 0530 ??? acetaminophen, 650 mg ??? albuterol, 2.5 mg AND ipratropium, 0.5 mg ??? oxyCODONE, 5 mg ??? sodium chloride 0.9%, 0.5-20 mL Physical Exam: Vitals: 10/16/21 2326 10/16/21 2328 10/17/21 0443 10/17/21 0707 BP: (!) 136/106 98/66 117/96 97/65 BP Location: Right arm Left arm Left arm Left arm Patient Position: HOB 30 degrees HOB 30 degrees HOB 30 degrees Lying Pulse: 81 86 102 87 Resp: 18 18 18 18 Temp: 36.7 ??C (98.1 ??F) 36.4 ??C (97.5 ??F) 36.4 ??C (97.6 ??F) TempSrc: Axillary Axillary Axillary SpO2: 97% 97% 96% 97% Weight: Height: General: Well-developed, well-nourished, no acute distress. Appropriate affect. Head and Face: Normocephalic, atraumatic. Skin: No cutaneous lesions of the face or neck. Neurologic: AAOx3, follows commands, V1-V3 intact and symmetric, facial movements symmetric. Eyes: Extraocular muscles are intact. Conjunctiva clear. No scleral icterus or injection. Ears: Normal external ear in appropriate position, bilateral EAC w/o drainage. Nose: Dorsum is midline. No drainage or discharge. Oral Cavity/Oropharynx: no active bleeding from underneath FOM mucosa to posterior FOM and anteriorly to gingivolabial sulcus through site of prior dental extractions. Tongue protrudes midline, palate elevates symmetrically. Neck: Trachea midline, neck flat. No evidence of lymphadenopathy, masses or tenderness. Cardiovascular: Extremities are warm and well perfused. Pulmonary: Normal quiet breathing. No respiratory distress, stridor, or wheeze. ?? Lab/Radiology/Diagnostic Review: LABS 24 HOURS: Lab Results Component Value Date WBC 17.5 (H) 10/16/2021 HGB 16.0 10/16/2021 HCT 49.4 10/16/2021 LABPLAT 268 10/16/2021 ALT 15 10/05/2021 AST 21 10/05/2021 SODIUM 136 10/16/2021 POTASSIUM 4.4 10/16/2021 CHLORIDE 97 10/16/2021 BUNSER 37 (H) 10/16/2021 CO2 28 10/16/2021 CREATININE 1.29 10/16/2021 GLUCOSE 102 10/16/2021 CALCIUM 10.1 10/16/2021 CAION 4.70 10/09/2021 PHOS 1.6 (L) 10/09/2021 MAGNESIUM 1.4 10/09/2021 TSH 3.81 10/05/2021 PT 14.0 (H) 10/16/2021 INR 1.3 (H) 10/16/2021 No results found for: MICROBIOLOGY, DIRECTEXAM ECG 12 lead Bret Blas MD 10/16/2021 4:33 PM ECG 12 lead Date/Time: 10/16/2021 4:32 PM Performed by: Bret Blas MD Authorized by: Melinda Theodore MD Rate: ECG rate: 93 Rhythm: Rhythm: atrial fibrillation Ectopy: Ectopy: none QRS: QRS axis: Normal QRS intervals: Normal Conduction: Conduction: normal ST segments: ST segments: Normal T waves: T waves: normal Previous ECG: Previous ECG: Compared to current Date of previous EC10/05/2021 Similarity: No change Interpretation: Interpretation: non-specific Recommended Follow-up: Recommended follow up: further workup in the ED Comments: Moderate risk Assessment/Plan Principal Problem: Oral bleeding 71 y.o. 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 #Postoperative bleed - Advance to [facility]D today - Hold clopidogrel and apixaban in setting of active bleeding - Discharge in evening if no more bleeding episodes #Fluids >Active: d5 LR @ 75cc/h >Admission Weight: Weight: 70.8 kg (156 lb) >Recent Weights: Wt Readings from Last 3 Encounters: 10/16/21 66.9 kg (147 lb 8 oz) 10/05/21 72.6 kg (160 lb 0.9 oz) 09/28/21 70.8 kg (156 lb) >I&O this admission: Net IO Since Admission: -165 mL [10/17/21 0931] I/O last 3 completed shifts: In: 525 [I.V.:525] Out: 665 [Urine:665] I/O this shift: In: 225 [I.V.:225] Out: 250 [Urine:250] #Electrolytes None #Nutrition CLD and FLD Maria Elena Wise MD Otolaryngology - Head & Neck Surgery For questions please reach out to: Mon - Tue Daytime: Head & Neck PA at [phone] (backup Tue-Tue Days): See [facility]ACIN[facility] for [facility] Head & Neck (pw: [id number]) Weekends & After 6pm: ENT Consult Cosigned by Moose Singleton MD at 10/18/2021 11:40 AM CDT PATHOLOGY TECHNOLOGIST * Rachel Ugarte MSW - 10/16/2021 10:06 PM CST EDSW consulted with pt's RN. RN reported that pt is being admitted and lives over an hour way and would like to stay at local lodge/hotel for the night. EDSW met with pt and his at bedside to provide lists of lodges and hotels. No further assistance is needed at this time. Rachel Ugarte LMSW 10/16/21 PATHOLOGY TECHNOLOGIST documented in this encounter Consult Notes * David Moreno MD - 10/16/2021 6:02 PM CSTAssociated Order(s): IP CONSULT TO ENT Otolaryngology - Head & Neck Surgery Consult Attending Physician: Dr. Singleton Reason for Consult: Oral bleeding Requesting Provider: Ewelina Bush History of present Illness Chilo Cross is a 71 y.o. 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 He restarted his c lopidogrel and apixaban yesterday (10/15) as scheduled and woke up this morning with blood covering his pillow. He continued to experience bleeding from his mouth and called Dr. Singleton's office. He wasadvised to present to [place] ED for further evaluation. He denies any pain, fevers, chills, nausea,vomiting, difficulty breathing or with PO intake. Patient (home) Insurance: Payor: / No coverage found. Past Medical History: Diagnosis Date ??? Atrial fibrillation (CMS/HCC) (HCC) ??? CAD (coronary artery disease) ??? 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 CHF (congestive heart failure) (CMS/HCC) (HCC) ??? COPD (chronic obstructive pulmonary disease) (CMS/HCC) (HCC) ? ? Ejection fraction < 50% ??? HTN (hypertension) ??? Pulmonary hypertension (CMS/HCC) (HCC) Patient Active Problem List Diagnosis ??? 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 BRONCHOSCOPY ??? CARDIAC STENT PLACEMENT ??? VASECTOMY Social History Tobacco Use ??? Smoking status: Former Smoker Packs/day: 0.40 Types: Cigarettes Start date: 1967 ??? Smokeless tobacco: Never Used Substance Use Topics ??? Alcohol use: Not Currently ??? Drug use: Never Family History Problem Relation Age of Onset ??? Anesthesia problems Neg Hx Allergies Allergen Reactions ??? Sulfa (Sulfonamide Antibiotics) Shortness of breath ??? Lisinopril Cough (Not in a hospital admission) Review of Systems: 10 point ROS performed and is negative except per HPI. OBJECTIVE Physical Exam: Vitals: 10/16/21 1239 10/16/21 1241 10/16/21 1800 BP: 121/74 115/74 Pulse: 78 81 Resp: 18 17 Temp: 36.4 ??C (97.5 ??F) TempSrc: Skin Skin SpO2: 98% 97% Weight: 70.8 kg (156 lb) Height: 182.9 cm (6') General: Well-developed, well-nourished, no acute distress. Appropriate affect. Head and Face: Normocephalic, atraumatic. Skin: No cutaneous lesions of the face or neck. Neurologic: AAOx3, follows commands, V1-V3 intact and symmetric, facial movements symmetric. Eyes: Extraocular muscles are intact. Conjunctiva clear. No scleral icterus or injection. Ears: Normal external ear in appropriate position, bilateral EAC w/o drainage. Nose: Dorsum is midline. No drainage or discharge. Oral Cavity/Oropharynx: active oozing from underneath FOM mucosa to posterior FOM and anteriorly togingivolabial sulcus through site of prior dental extractions. Tongue protrudes midline, palate elevates symmetrically. Applied TXA soaked gauze to FOM and had patient bite down / push tongue down tohold pressure. Neck: Trachea midline, neck flat. No evidence of lymphadenopathy, masses or tenderness. Cardiovascular: Extremities are warm and well perfused. Pulmonary: Normal quiet breathing. No respiratory distress, stridor, or wheeze. Procedures None. Lab/Radiology/Diagnostic Review: Laboratory review: Lab results in the last 12 hours: Recent Results (from the past 24 hour(s)) CBC without differential Collection Time: 10/16/21 3:56 PM Result Value Ref Range WBC 17.5 (H) 3.8 - 9.9 K/cumm Hgb 16.0 13.0 - 17.5 g/dL Hct 49.4 38.9 - 50.3 % Plt 268 150 - 400 K/cumm MPV 10.2 9.1 - 12.3 fL RBC 5.35 4.30 - 5.80 M/cumm MCV 92.3 81.3 - 96.4 fL MCH 29.9 27.1 - 33.3 pg MCHC 32.4 32.3 - 35.7 g/dL RDW CV 13.1 11.1 - 14.9 % RDW SD 43.9 35.7 - 48.1 fL NRBC abs 0.00 0.00 - 0.01 K/cumm Basic metabolic panel Collection Time: 10/16/21 3:56 PM Result Value Ref Range Sodium 136 135 - 145 mmol/L Potassium, pl 4.4 3.3 - 4.9 mmol/L Chloride 97 97 - 110 mmol/L CO2 28 22 - 32 mmol/L Anion gap 11 2 - 15 mmol/L BUN 37 (H) 8 - 25 mg/dL Creatinine 1.29 0.80 - 1.30 mg/dL Glucose 102 70 - 199 mg/dL Calcium 10.1 8.5 - 10.3 mg/dL Protime-INR Collection Time: 10/16/21 3:56 PM Result Value Ref Range PT 14.0 (H) 9.5 - 13.6 sec INR 1.3 (H) 0.9 - 1.2 aPTT Collection Time: 10/16/21 3:56 PM Result Value Ref Range aPTT 35 27 - 37 sec eGFR Collection Time: 10/16/21 3:56 PM Result Value Ref Range eGFR 60 (L) 90 - 130 mL/min/1.73 m2 Imaging review: None. Assessment/Plan 71 y.o. 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 - admit to ENT for obs - NPO - hold clopidogrel and apixaban in setting of active bleeding - resume home medications Thank you for this consult. We will be available if you have further questions or concerns. David Moreno MD Otolaryngology [phone] For established consults during business hours, please call [facility] [phone]. Weekends/afterhours: ENT Consult Cosigned by Moose Singleton MD at 10/19/2021 8:49 PM CDT PATHOLOGY TECHNOLOGIST PATHOLOGY TECHNOLOGIST PATHOLOGY TECHNOLOGIST documented in this encounter ED Notes * Bret Blas MD - 10/16/2021 4:37 PM CST HPI Chief Complaint Patient presents with ??? Post-op Problem HPI Patient History: Patient Active Problem List Diagnosis Date Noted ??? Oral bleeding 10/16/2021 ??? 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 Atrial fibrillation (CMS/HCC) (HCC) ??? CAD (coronary artery disease) ??? 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 CHF (congestive heart failure) (CMS/HCC) (HCC) ??? COPD (chronic obstructive pulmonary disease) (CMS/HCC) (HCC) ? ? Ejection fraction < 50% ??? HTN (hypertension) ??? Pulmonary hypertension (CMS/HCC) (HCC) Past Surgical History: Procedure Laterality Date ??? BRONCHOSCOPY ??? CARDIAC STENT PLACEMENT ??? VASECTOMY Family History Problem Relation Age of Onset ??? Anesthesia problems Neg Hx Social History Tobacco Use ??? Smoking status: Former Smoker Packs/day: 0.40 Types: Cigarettes Start date: 1967 ??? Smokeless tobacco: Never Used Substance Use Topics ??? Alcohol use: Not Currently ??? Drug use: Never Social History Social History Narrative ??? 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 Started Plavix and Eliquis last PM, oral ooze andheavier bleeding today. Called ENT and sent in for evaluation. Stable. Plan-IV, labs, consult ENT and dispo TBD. Attending Attestation for Resident note I, Bret Blas MD, have seen and examined this patient on 10/16/2021. I agree with the findings and plan of care as documented in the resident's note unless noted otherwise here. ED Course as of 10/16/21 2243 Time: 10/16 1609 Comment: Spoke to ENT team, they will come evaluate the patient By: Melinda Theodore MD Time: 10/16 1735 Value: Hgb: 16.0 Comment: (Reviewed) By: Melinda Theodore MD Time: 10/17 1735 Value: Creatinine: 1.29 Comment: (Reviewed) By: Melinda Theodore MD Time: 10/17 1735 Value: INR(!): 1.3 Comment: (Reviewed) By: Melinda Theodore MD Time: 10/17 1735 Comment: ENT requesting TXA solution for oral bleeding. Likely will admit the patient. Will CTM until dispo plan clear per their recommendaitons By: Melinda Theodore MD Time: 10/16 1899 Comment: ENT stopped by, patient now holding TXA soaked gauze to reduce bleeding. Will give IV dilaudid x1 for worsening pain at postsurgical sites By: Melinda Theodore MD Oral bleeding, Active Bret Blas MD 10/16/21 2249 PATHOLOGY TECHNOLOGIST * Bret Blas MD - 10/16/2021 4:09 PM CST HPI Chief Complaint Patient presents with ??? Post-op Problem HPI The patient is a 71 y/o M w/ a hx of afib, HTN, COPD, CAD, BPH and PSH of Partial FOM resection, Rim Mandibulectomy, and Dental Extractions (10/09/21) w/ ENT ([facility]) who presents with acute oral bleeding. On presentation he is HS stable, breathing well on RA, and speaking clearly. The patients states he was in his usual health, recovering from his surgery with stable lower mandibular pain, when he woke up on 10/16/21 with blood coming out of his mouth, covering his pillow, shirt and bedsheets. He states he was instructed to restart his anticoagulation on 10/15, and took his clopidogrel (for ROGER in 06/2021) at approx 0930 and apixaban (Afib) at 2100. He denies any lightheadedness, worsening pain, fever, chills, chest pain, shortness of breath when this all started this AM. He furthers that he attempted to wash out his mouth, but felt that blood continued to accumulate/ooze. He reached out to his ENT team, and a staff member instructed him to come to the ED for evaluation. ROS is otherwise negative, and he states he has had normal PO intake even with this bleeding. Patient History: Patient Active Problem List Diagnosis Date Noted ??? Oral bleeding 10/16/2021 ??? 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) ([facility]) 09/22/2021 Past Medical History: Diagnosis Date ??? Atrial fibrillation (CMS/HCC) (HCC) ??? CAD (coronary artery disease) ??? 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 CHF (congestive heart failure) (CMS/HCC) (HCC) ??? COPD (chronic obstructive pulmonary disease) (CMS/HCC) ([facility]) ? ? Ejection fraction < 50% ??? HTN (hypertension) ??? Pulmonary hypertension (CMS/HCC) (HCC) Past Surgical History: Procedure Laterality Date ??? BRONCHOSCOPY ??? CARDIAC STENT PLACEMENT ??? VASECTOMY Family History Problem Relation Age of Onset ??? Anesthesia problems Neg Hx Social History Tobacco Use ??? Smoking status: Former Smoker Packs/day: 0.40 Types: Cigarettes Start date: 1967 ??? Smokeless tobacco: Never Used Substance Use Topics ??? Alcohol use: Not Currently ??? Drug use: Never Social History Social History Narrative ??? Not on file Review of Systems Review of Systems All other systems reviewed and are negative. Physical Exam ED Triage Vitals Temp Pulse Resp BP SpO2 10/16/21 1241 10/16/21 1239 10/16/21 1239 10/16/21 1239 10/16/21 1239 36.4 ??C (97.5 ??F) 78 18 121/74 98 % Temp src Heart Rate Source Patient Position BP Location FiO2 (%) 10/16/21 1239 10/17/21 0707 10/16/21 2326 10/16/21 2225 -- Skin Monitor HOB 30 degrees Right arm Physical Exam Constitutional: General: He is not in acute distress. Appearance: He is not ill-appearing or diaphoretic. HENT: Mouth/Throat: Comments: Moist mucous membranes, with kellie blood accumulating in his mouth most focally from anterior tooth extraction site, missing 2 front teeth, without lesions in oropharynx. Poor dentition, and floor of mouth appearing barraza/yellow Eyes: Conjunctiva/sclera: Conjunctivae normal. Comments: EOM grossly intact Cardiovascular: Comments: Irregular rate, normal S1 and S2, no murmurs appreciated Pulmonary: Effort: Pulmonary effort is normal. No respiratory distress. Comments: CTAB in posterior lung case without crackles or wheezes Abdominal: General: Abdomen is flat. Palpations: Abdomen is soft. Tenderness: There is no abdominal tenderness. There is no guarding. Musculoskeletal: Right lower leg: No edema. Left lower leg: No edema. Comments: 2+ radial pulse, no UE or LE swelling Skin: General: Skin is warm and dry. Capillary Refill: Capillary refill takes 2 to 3 seconds. Comments: Bruising noted in R anterior forearm Neurological: General: No focal deficit present. Mental Status: He is alert. Psychiatric: Mood and Affect: Mood normal. [facility] Medical Decision Making Differential Diagnosis or Management Options: Patient w. HX of CAD and Afib and recent hx of FOM resection, Rim Mandibulectomy, and Dental Extractions (10/09/21) w/ ENT presents with bleeding from mouth ISO of restarting AC (plavix, apixaban). Exam showing gross kellie blood, but patient otherwise denying any kind of lightheadedness. Presentation c/f postsurgical bleed vs less likely episaxis vs bleed from oral lesion. Will obtain cbc, bmp, aPTT, and PT-INT, and consult ENT for further eval give recent d/c. Attending Summary of Care 71 yo male 6 days s/p FOM ressection, just re-started anti-platelet (Plavix) and NOAC and now with slow ooze from surgical sites. Tolerating secretions, no N/V, no LH, dizziness, normal voice. Sent in by ENT. Plan-IV, CBC, T&S, ENT consult and likely packing and admission for observation. Attending Attestation for Resident note I,I, Bret Blas MD, have seen and examined this patient on 10/16/21. I agree with the findingand POC as noted in resident documentation. I supervised all aspects of this patients care. ED Course as of 10/18/21 1810 Time: 10/16 1609 Comment: Spoke to ENT team, they will come evaluate the patient By: Melinda Theodore MD Time: 10/16 1734 Value: Hgb: 16.0 Comment: (Reviewed) By: Melinda Theodore MD Time: 10/17 1735 Value: Creatinine: 1.29 Comment: (Reviewed) By: Melinda Theodore MD Time: 10/17 1735 Value: INR(!): 1.3 Comment: (Reviewed) By: Melinda Theodore MD Time: 10/16 1736 Comment: ENT requesting TXA solution for oral bleeding. Likely will admit the patient. Will CTM until dispo plan clear per their recommendaitons By: Melinda Theodore MD Time: 10/16 1900 Comment: ENT stopped by, patient now holding TXA soaked gauze to reduce bleeding. Will give IV dilaudid x1 for worsening pain at postsurgical sites By: Melinda Theodore MD Oral bleeding, Active Melinda Theodore MD 10/16/21 3873 Bret Blas MD 10/18/21 1810 PATHOLOGY TECHNOLOGIST * Vahid Martinez RN - 10/16/2021 3:46 PM CST Bed: ED2- Expected date: 10/16/21 Expected time: 12:37 PM Means of arrival: Car Comments: Vahid Martinez RN 10/16/21 1546 PATHOLOGY TECHNOLOGIST * Fifi Buckley RN - 10/16/2021 12:42 PM CST Patient in to ED, had mouth surgery to remove cancer last week, then yesterday started his Eliquis and Plavix again as prescribed and woke up with a pillow full of blood. Admits to some pain last night, denies pain now. Did not take thinners today except a baby ASA due to the bleeding. Noted slightamount of blood in mouth. Patient tolerating secretions, no difficulty swallowing. Denies SOB. PATHOLOGY TECHNOLOGIST documented in this encounter Miscellaneous Notes * Plan of Care - Peg Isbell RRT - 10/18/2021 9:46 AM CDT Pt is resting on room air, vitals are stable. Pt is receiving daily trelegy. Pt is able to self administer will place bedside for further monitoring. * Plan of Care - Augie Bowling RN - 10/18/2021 8:32 AM CDT Problem: Lack of Knowledge: Goal: Ability to state ways to decrease the risk of falls will improve Outcome: Progressing Problem: Safety: Goal: Will remain free from falls Outcome: Progressing Goal: Will remain free from injury from falls Outcome: Progressing Goal: Will remain free from falls and injury in home environment Outcome: Progressing Problem: Health Behavior: Goal: Understanding of discharge needs will improve Outcome: Progressing Goals: Pt will have no bleeding episodes Summary: Pt resting in room, no bleeding since admission., Tolerating full liquids, plans to discharge today. * Plan of Care - Domitila Tejeda RN - 10/18/2021 3:07 AM CDT Goals: discharge Summary: * Plan of Care - Augie Bowling RN - 10/17/2021 9:13 AM CYTOPATHOLOGY TECHNOLOGIST Problem: Lack of Knowledge: Goal: Ability to state ways to decrease the risk of falls will improve Outcome: Progressing Problem: Safety: Goal: Will remain free from falls Outcome: Progressing Goal: Will remain free from injury from falls Outcome: Progressing Goal: Will remain free from falls and injury in home environment Outcome: Progressing Goals: Pt will have no episodes of bleeding Summary: Pt resting in bed, no bleeding at this time. PATHOLOGY TECHNOLOGIST * Plan of Care - Domitila Tejeda RN - 10/16/2021 10:37 PM CST Goals: monitor for bleeding, Summary: PATHOLOGY TECHNOLOGIST * ED Procedure Note - Bret Blas MD - 10/16/2021 6:30 PM CYTOPATHOLOGY TECHNOLOGIST Associated Order(s): Critical Care Procedure Critical Care Performed by: Bret Blas MD Authorized by: Bret Blas MD Critical care provider statement: As reflected in the history, physical exam, orders, notes, and/or MDM, I was personally present while the patient was critically ill and provided critical care services for approximately 35 minutes, excluding time involved in separately billable procedures. Critical care was necessary to treat or prevent imminent or life-threatening deterioration of the following condition(s): ENT s/p FOM surgery with bleeding oozing from sites, POD 6. Started Plavix and Eliquis yesterday. Critical care was time spent by me providing the following: Oral TXA and packing wounds with ENT replacement of coagulation factors I provided emergent necessary critical care medicine services to this patient. I ordered and reviewed test results and/or imaging studies. I spent time discussing the management of this critically ill patient with consultants and the medical staff. I spent time discussing the management and therapeutic options for this critically ill patient with the patient themselves or with the appropriate designated surrogate decision-maker. I spent time documenting in the medical record. Bret Blas MD 10/16/211831 PATHOLOGY TECHNOLOGIST * ED Procedure Note - Bret Blas MD - 10/16/2021 4:32 PM CYTOPATHOLOGY TECHNOLOGIST Associated Order(s): ECG 12 lead Procedure ECG 12 lead Date/Time: 10/16/2021 4:32 PM Performed by: Bret Blas MD Authorized by: Melinda Theodore MD Rate: ECG rate: 93 Rhythm: Rhythm: atrial fibrillation Ectopy: Ectopy: none QRS: QRS axis: Normal QRS intervals: Normal Conduction: Conduction: normal ST segments: ST segments: Normal T waves: T waves: normal Previous ECG: Previous ECG: Compared to current Date of previous EC10/05/2021 Similarity: No change Interpretation: Interpretation: non-specific Recommended Follow-up: Recommended follow up: further workup in the ED Comments: Moderate risk Bret Blas MD 10/16/21 1633 PATHOLOGY TECHNOLOGIST * Plan of Care - Jenn Huertas RN - 10/16/2021 12:53 PM CST As part of the readmission prevention initiative, ED CM receives an automated alert on patient who was discharged from [facility] inpatient admission </=7 days (DC 10/11/21; ED treatment team aware). Pt presents to ED cc:bleeding in mouth (pt had oral surgery to remove cancer on 10/09/21). Pt instructed to restart anticoagulation yesterday which he did prior to going to bed and then woke up with the bleeding. ED workup/orders/tx plan pending. Chart review completed. Upcoming scheduled appts per [facility] EMR include: follow up appts with surgeon on 10/26 Identified high risk SDOH (social determinants of health) include: medium risk for smoking No ED CM/SW needs identified at this time, but please contact ED CM ([phone]) for questions and/or prior to admission order placed so that alternatives to admission (if any) can be discussed. PATHOLOGY TECHNOLOGIST documented in this encounter Plan of Treatment Not on file documented as of this encounter Procedures Procedure Name Priority Date/Time Associated Diagnosis Comments INFLUENZA A/B, RSV, AND COVID-19 PCR Routine 10/16/2021 7:21 PM CYTOPATHOLOGY TECHNOLOGIST [place] CRITICAL CARE ILL/INJURED PATIENT INIT 30-74 MIN Routine 10/16/2021 6:30 PM CYTOPATHOLOGY TECHNOLOGIST ECG 12-LEAD Routine 10/16/2021 4:32 PM CYTOPATHOLOGY TECHNOLOGIST EGFR STAT 10/16/2021 3:56 PM CYTOPATHOLOGY TECHNOLOGIST APTT STAT 10/16/2021 3:56 PM CYTOPATHOLOGY TECHNOLOGIST PROTIME-INR STAT 10/16/2021 3:56 PM CYTOPATHOLOGY TECHNOLOGIST CBC WITHOUT DIFFERENTIAL Routine 10/16/2021 3:56 PM CYTOPATHOLOGY TECHNOLOGIST BASIC METABOLIC PANEL STAT 10/16/2021 3:56 PM CYTOPATHOLOGY TECHNOLOGIST documented in this encounter Results * Influenza A/B, RSV, and COVID-19 PCR Nasopharyngeal (10/16/2021 7:21 PM CYTOPATHOLOGY TECHNOLOGIST) COVID-19 RNA Negative Negative [facility] Influenza A RNA Negative Negative [facility] Influenza B RNA Negative Negative [facility] RSV RNA Negative Negative [facility] Comment: Interpretive data: Testing performed by [facility] ([phone]). This test is performed using the [employer] Xpert Xpress CoV-2/Flu/RSV plus assay. This is a multiplex, real-time reverse transcriptase PCR assay intended for the qualitative detection of nucleic acid from SARS-CoV-2, influenza A, influenza B, and respiratory syncytial virus. This assay has been reviewed by the FDA for Emergency Use Authorization (EUA). The performance characteristics have been verified by the [facility]. Results must be considered in the clinical context, and a negative result does not rule out infection. Interpretive Data last revised 2021. First COVID-19 test? No [facility] Employeed in healthcare? No [facility] Group care resident? No [facility] Hospitalized? No [facility] Is patient in ICU? No [facility] Symptomatic as defined by CDC? No [facility] Nasopharyngeal 10/16/2021 7: 21 PM CYTOPATHOLOGY TECHNOLOGIST 10/16/2021 7:46 PM CYTOPATHOLOGY TECHNOLOGIST Narrative [facility] - 10/16/2021 8:39 PM CYTOPATHOLOGY TECHNOLOGIST Reason for testing?->Bed placement or semi-private room Known exposure to confirmed or suspected COVID-19 case?->No us Melinda Theodore MD LAB MICROBIOLOGY - GENERAL ORDE RABLES Final Result [facility] Department [place] [address] * [place] CRITICAL CARE ILL/INJURED PATIENT INIT 30-74 MIN (10/16/2021 6:30 PM CYTOPATHOLOGY TECHNOLOGIST) Narrative Bret Blas MD - 10/16/2021 6:30 PM CYTOPATHOLOGY TECHNOLOGIST Bret Blas MD ? 10/16/2021 ??6:32 PM Critical Care Performed by: Bret Blas MD Authorized by: Bret Blas MD Critical care provider statement: As reflected in the history, physical exam, orders, notes, and/or MDM, I was personally present while the patient was critically ill and provided critical care services for approximately 35 minutes, excluding time involved in separately billable procedures. ??Critical care was necessary to treat or prevent imminent or life-threatening deterioration of the following condition(s): ?? ENT s/p FOM surgery with bleeding oozing from sites, POD 6. ??Started Plavix and Eliquis yesterday. ?Critical care was time spent by me providing the following: ? Oral TXA and packing wounds with ENT ?? replacement of coagulation factors ?? I provided emergent necessary critical care medicine services to this patient. I ordered and reviewed test results and/or imaging studies. I spent time discussing the management of this critically ill patient with consultants and the medical staff. I spent time discussing the management and therapeutic options for this critically ill patient with the patient themselves or with the appropriate designated surrogate decision-maker. I spent time documenting in the medical record. us Bret Blas MD IN CLINIC/BEDSIDE ORDERAB LES Final Result * ECG 12-LEAD (10/16/2021 4:32 PM CYTOPATHOLOGY TECHNOLOGIST) Narrative [facility] - 10/16/2021 4:32 PM CYTOPATHOLOGY TECHNOLOGIST Bret Blas MD ? 10/16/2021 ??4:33 PM ECG 12 lead Date/Time: 10/16/2021 4:32 PM Performed by: Bret Blas MD Authorized by: Melinda Theodore MD Rate: ??ECG rate: ??93 Rhythm: ??Rhythm: atrial fibrillation ?? Ectopy: ??Ectopy: none ?? QRS: ??QRS axis: ??Normal ??QRS intervals: ??Normal Conduction: ??Conduction: normal ?? ST segments: ??ST segments: ??Normal T waves: ??T waves: normal ?? Previous ECG: ??Previous ECG: ??Compared to current ??Date of previous ECG: ??10/05/2021 ??Similarity: ??No change Interpretation: ??Interpretation: non-specific ?? Recommended Follow-up: ??Recommended follow up: further workup in the ED ?? Comments: ?? Moderate risk Procedure Note Bret Blas MD - 10/16/2021 4:32 PM CST Procedure ECG 12 lead Date/Time: 10/16/2021 4:32 PM Performed by: Bret Blas MD Authorized by: Melinda Theodore MD Rate: ECG rate: 93 Rhythm: Rhythm: atrial fibrillation Ectopy: Ectopy: none QRS: QRS axis: Normal QRS intervals: Normal Conduction: Conduction: normal ST segments: ST segments: Normal T waves: T waves: normal Previous ECG: Previous ECG: Compared to current Date of previous EC10/05/2021 Similarity: No change Interpretation: Interpretation: non-specific Recommended Follow-up: Recommended follow up: further workup in the ED Comments: Moderate risk Bret Blas MD 10/16/21 7663 us Melinda Theodore MD ECG ORDERABLES Final Result [facility] * (ABNORMAL) eGFR (10/16/2021 3:56 PM CYTOPATHOLOGY TECHNOLOGIST) eGFR 60(L) 90 - 130 mL/min/1. 73 m2 [facility] Comment: Interpretive Data Reference Interval Normal ?>/= 90 mL/min/1.73m2 Mildly decreased* ? 60 - 89 mL/min/1.73m2 Mildly to moderately decreased ?45 - 59 mL/min/1.73m2 Moderately to severely decreased ??30 - 44 mL/min/1.73m2 Severely decreased ?15 - 29 mL/min/1.73m2 Kidney Failure ?< 15 ??mL/min/1.73m2 *Relative to young adult level Estimated glomerular filtration rate is determined by the 2020 CKD-EPI equation recommended by the National Kidney [employer] (A Unifying Approach to GFR Estimation: Recommendations of the NKF-ASK Task Force on Reassessing the Inclusion of Race in Diagnosing Kidney Disease, JASN 2020). The CKD-EPI equation should not be used for patients with unstable renal function and has not been validated in children and those over 70. Current interpretive data was last reviewed 2021. Blood 10/16/2021 3:56 PM CYTOPATHOLOGY TECHNOLOGIST 10/16/2021 4:19 PM CYTOPATHOLOGY TECHNOLOGIST us Melinda Theodore MD LAB BLOOD ORDERABLES Final Resu lt [facility] Department [place] [address] * aPTT (10/16/2021 3:56 PM CYTOPATHOLOGY TECHNOLOGIST) aPTT 35 27 - 37 sec [facility] Comment: Interpretive Data Therapeutic heparin range: 60.0 - 94.0 seconds. Based on correlation with therapeutic heparin activity range of 0.3-0.7 Units/mL. Current interpretive data was last revised on 2020. Blood 10/16/2021 3:56 PM CYTOPATHOLOGY TECHNOLOGIST 10/16/2021 4:12 PM CYTOPATHOLOGY TECHNOLOGIST Melinda Theodore MD LAB BLOOD ORDERABLES Final Resu lt Performing Organization Address [facility] de Phone Number [facility] [place] [address] * (ABNORMAL) Protime-INR (10/16/2021 3:56 PM CYTOPATHOLOGY TECHNOLOGIST) PT 14.0(H) 9.5 - 13.6 sec [facility] INR 1.3(H) 0.9 - 1.2 [facility] Comment: Interpretive data Oral anticoagulant therapeutic ranges: Venous thromboembolism prophylaxis or treatment: 2.0-3.0 CARDIOLOGY Standard range: 2.0-3.0 High-intensity range: 2.5-3.5 Refer to indication-specific guidelines for appropriate target ranges for prosthetic heart valve replacement. Current interpretive data was last revised on 2019. Blood 10/16/2021 3:56 PM CYTOPATHOLOGY TECHNOLOGIST 10/16/2021 4:12 PM CYTOPATHOLOGY TECHNOLOGIST Melinda Theodore MD LAB BLOOD ORDERABLES Final Resu lt Performing Organization Address [facility] de Phone Number [facility] [place] [address] * (ABNORMAL) Basic metabolic panel (10/16/2021 3:56 PM CYTOPATHOLOGY TECHNOLOGIST) Sodium 136 135 - 145 mmol/L [facility] Potassium, pl 4.4 3.3 - 4.9 mmol/L [facility] Chloride 97 97 - 110 mmol/L [facility] CO2 28 22 - 32 mmol/L [facility] Anion gap 11 2 - 15 mmol/L [facility] BUN 37(H) 8 - 25 mg/dL [facility] Creatinine 1.29 0.80 - 1.30 mg/dL [facility] Glucose 102 70 - 199 mg/dL [facility] Comment: Interpretive Data Fasting glucose >/= 126 mg/dl is diagnostic for diabetes. ?? Fasting is defined as no caloric intake for at least 8 hours. Fasting glucose between 100 mg/dl to 125 mg/dl is diagnostic of prediabetes. In a patient with classic symptoms of hyperglycemia or hyperglycemic crisis, a random glucose >/= 200 mg/dl is diagnostic for diabetes. In the absence of unequivocal hyperglycemia, results should be confirmed by repeat testing. The classification and Diagnosis of Diabetes Diabetes Care 2017;40 (Suppl. 1):S11. Current interpretive data was last revised 2017. Calcium 10.1 8.5 - 10.3 mg/dL [facility] Blood 10/16/2021 3:56 PM CYTOPATHOLOGY TECHNOLOGIST 10/16/2021 4:19 PM CYTOPATHOLOGY TECHNOLOGIST us Melinda Theodore MD LAB BLOOD ORDERABLES Final Resu lt [facility] Department [place] [address] * (ABNORMAL) CBC without differential (10/16/2021 3:56 PM CYTOPATHOLOGY TECHNOLOGIST) WBC 17.5(H) 3.8 - 9.9 K/cumm [facility] Hgb 16.0 13.0 - 17.5 g/dL [facility] Hct 49.4 38.9 - 50.3 % [facility] Plt 268 150 - 400 K/cumm [facility] MPV 10.2 9.1 - 12.3 fL [facility] RBC 5.35 4.30 - 5.80 M/cumm [facility] MCV 92.3 81.3 - 96.4 fL [facility] MCH 29.9 27.1 - 33.3 pg [facility] MCHC 32.4 32.3 - 35.7 g/dL [facility] RDW CV 13.1 11.1 - 14.9 % [facility] RDW SD 43.9 35.7 - 48.1 fL [facility] NRBC abs 0.00 0.00 - 0.01 K/cumm [facility] Blood 10/16/2021 3:56 PM CYTOPATHOLOGY TECHNOLOGIST 10/16/2021 4:19 PM CYTOPATHOLOGY TECHNOLOGIST Melinda Theodore MD LAB BLOOD ORDERABLES Final Resu lt [facility] Department [place] [address] documented in this encounter Visit Diagnoses Diagnosis Oral bleeding- Primary Unspecified hemorrhage Oral bleeding Unspecified hemorrhage documented in this encounter Admitting Diagnoses Diagnosis Oral bleeding Unspecified hemorrhage documented in this encounter Administered Medications Inactive Administered Medications - up to 3 most recent administrations Medication Order MAR Action Action Date Dose Rate Site acetaminophen (TYLENOL) tablet 1,000 mg 1,000 mg, oral, Every 6 hours PRN, 1st line for pain, Starting on Tue10/16/21 at 1931 Given 10/17/2021 5:30 AM CYTOPATHOLOGY TECHNOLOGIST 1,000 mg albuterol 2.5 mg/0.5 mL nebulizer solution 2.5 mg 2.5 mg, nebulization, Every 4 hours PRN (respiratory coordinator), wheezing, Starting on Tue10/16/21 at 1936 amoxicillin-clavulanate (AUGMENTIN) 875-125 mg per tablet 875 mg of amoxicillin 875 mg of amoxicillin, oral, 2 times daily, First dose on Tue10/16/21 at 2100, For 9 days, Indications: Other (complete free text reason below), Surgical PPxIndications:Other (complete free text reason below),Surgical PPx Given 10/18/2021 8:40 AM CDT 875 mg of amoxicillin Given 10/17/2021 8:08 PM CYTOPATHOLOGY TECHNOLOGIST 875 mg of amoxicillin Given 10/17/2021 8:30 AM CYTOPATHOLOGY TECHNOLOGIST 875 mg of amoxicillin calcium carbonate-vitamin D3 1,250mg (500mg elemental) - 5 mcg (200 units) per tablet 1 tablet 1 tablet, oral, Every morning, First dose on Tue10/17/21 at 0900 Given 10/18/2021 8:40 AM CDT 1 tablet Given 10/17/2021 8:30 AM CYTOPATHOLOGY TECHNOLOGIST 1 tablet chlorhexidine (PERIDEX) 0.12 % solution 15 mL 15 mL, mouth/throat, 3 times daily after meals, First dose on Tue10/16/21 at 1938 Given 10/18/2021 8:40 AM CDT 15 mL Given 10/17/2021 5:54 PM CYTOPATHOLOGY TECHNOLOGIST 15 mL Given 10/17/2021 1:08 PM CYTOPATHOLOGY TECHNOLOGIST 15 mL dextrose 5% and Lactated Ringer's infusion 75 mL/hr, intravenous, Continuous, Starting on Tue10/16/21 at 2315 Rate/Dose Verify 10/17/2021 9:00 AM CYTOPATHOLOGY TECHNOLOGIST 75 mL/hr 75 mL/hr Rate/Dose Verify 10/17/2021 8:00 AM CYTOPATHOLOGY TECHNOLOGIST 75 mL/hr 75 mL/h r Rate/Dose Verify 10/17/2021 7:00 AM CYTOPATHOLOGY TECHNOLOGIST 75 mL/hr 75 mL/h r ggeauicmcae-glafotxhx-kwuzzlkd (TRELEGY ELLIPTA) 100-62.5-25 mcg inhaler 1 puff 1 puff, inhalation, Daily (respiratory coordinator), First dose on Tue10/16/21 at 1938, Rinse mouth with water after use. Do not swallow. Given 10/18/2021 8:45 AM CDT 1 puff Given 10/17/2021 1:06 PM CYTOPATHOLOGY TECHNOLOGIST 1 puff fcpultfclxd-hphdsroiv-whfelxrb (TRELEGY ELLIPTA) 100-62.5-25 mcg inhaler 1 puff 1 puff, inhalation, Daily, First dose (after last modification) on Tue10/19/21 at 0900, Rinse mouth with water after use. Do not swallow. HYDROmorphone (DILAUDID) injection 0.5 mg 0.5 mg, intravenous, Administer over 2 Minutes, Once, On Tue10/16/21 at 1855, For 1 dose Given 10/16/2021 7:00 PM CYTOPATHOLOGY TECHNOLOGIST 0.5 mg ipratropium (ATROVENT) 0.02 % nebulizer solution 0.5 mg 0.5 mg, nebulization, Every 4 hours PRN (respiratory coordinator), wheezing, shortness of breath, Starting on Tue10/16/21 at 1936 losartan (COZAAR) tablet 25 mg 25 mg, oral, Every morning, First dose on Tue10/17/21 at 0900 Given 10/18/2021 8:42 AM CDT 25 mg Given 10/17/2021 8:29 AM CYTOPATHOLOGY TECHNOLOGIST 25 mg oxyCODONE (ROXICODONE) tablet 5 mg 5 mg, oral, Every 4 hours PRN, 1st line for pain, post-op pain, Starting on Tue10/16/21 at 1803, For 3 doses, Indications: PainIndications:Pain Given 10/16/2021 6:40 PM CYTOPATHOLOGY TECHNOLOGIST 5 mg oxyCODONE (ROXICODONE) tablet 5 mg 5 mg, oral, Every 4 hours PRN, breakthrough pain, intolerable pain, Starting on Tue10/16/21 at 1934, Indications: PainIndications:Pain Given 10/17/2021 10:07 PM CYTOPATHOLOGY TECHNOLOGIST 5 mg Given 10/17/2021 4:10 PM CYTOPATHOLOGY TECHNOLOGIST [address] (PROTONIX) extended release tablet 40 mg 40 mg, oral, Daily, First dose on Tue10/16/21 at 1938, Do not crush, chew, cut, dissolve, open or otherwise manipulate tablet/capsule., Indications: Stress Ulcer ProphylaxisIndications:Stress Ulcer Prophylaxis Given 10/18/2021 8:40 AM CDT 40 mg Given 10/17/2021 8:30 AM CYTOPATHOLOGY TECHNOLOGIST 40 mg sodium chloride 0.9% flush 0.5-20 mL 0.5-20 mL, intra-catheter, Every 8 hours scheduled, First dose on Tue10/16/21 at 2200, Flush volume based on line type and size. Given 10/17/2021 1:31 PM CYTOPATHOLOGY TECHNOLOGIST 10 mL Given 10/17/2021 12:09 AM CYTOPATHOLOGY TECHNOLOGIST 10 mL sodium chloride 0.9% flush 0.5-20 mL 0.5-20 mL, intra-catheter, As needed, line care, Starting on Tue10/16/21 at 1938, Flush volume based on line type and size. Flush before and after each use. tamsulosin (FLOMAX) extended release capsule 0.4 mg 0.4 mg, oral, Every morning, First dose on Tue10/17/21 at 0900, Do not crush, chew, cut, dissolve, open or otherwise manipulate tablet/capsule. Given 10/18/2021 8:40 AM CDT 0.4 mg Given 10/17/2021 8:30 AM CYTOPATHOLOGY TECHNOLOGIST 0.4 mg tranexamic acid (CYKLOKAPRON) 1,000 mg/10 mL (100 mg/mL) solution 1,000 mg 1,000 mg, topical, Once, On Tue10/16/21 at 1720, For 1 dose, Max rate of infusion is 100 mg/minute., Indications: Postsurgical HemorrhageIndications:Postsurgi calixto Hemorrhage Given 10/16/2021 6:59 PM CYTOPATHOLOGY TECHNOLOGIST 1,000 mg tranexamic acid (CYKLOKAPRON) 1,000 mg/10 mL (100 mg/mL) solution 1,000 mg 1,000 mg, topical, Every 6 hours, First dose on Tue10/16/21 at 2315, Apply to gauze and place with pressure in mouth Max rate of infusion is 100 mg/minute., Indications: Postsurgical HemorrhageIndications:Postsurgi calixto Hemorrhage Given 10/17/2021 12:08 AM CYTOPATHOLOGY TECHNOLOGIST 1,000 mg Other (Comment) documented in this encounter Discontinued Medications Medication Sig Discontinue Reason Start Date End Da te Eliquis 5 mg tabletIndications:atrial fibrillation Take 5 mg by mouth 2 (two) times a day Reorder 09/11/2021 10/17/2021 clopidogreL (PLAVIX) 75 mg tablet Take 75 mg by mouth every morning Reorder 07/15/2021 10/17/2021 documented as of this encounter Historical Medications * This list may reflect changes made after this encounter. Eliquis 5 mg tabletIndications: atrial fibrillation Take 1 tablet (5 mg total) by mouth 2 (two) times a day 10/24/2021 clopidogreL (PLAVIX) 75 mg tablet Take 1 tablet (75 mg total) by mouth every morning 10/28/2021 3 added in this encounter Active and Recently Administered Medications Due to Daylight Saving Time, this section may contain times in both CYTOPATHOLOGY TECHNOLOGIST and CDT. Scheduled Medication Order 10/16/2021 10/17/2021 10/18/2021 amoxicillin-clavulanate (AUGMENTIN) 875-125 mg per tablet 875 mg of amoxicillin 875 mg of amoxicillin, oral, 2 times daily, First dose on Tue10/16/21 at 2100, For 9 days, Indications: Other (complete free text reason below), Surgical PPx 2003 (Not Given - Provider: Re Daugherty RN - Reason: Other - Comment: pt stated he took his 2nd dose already for today) 0830 (Given - Provider: Augie Bowling RN)2007 (Given - Provider: Domitila Tejeda RN) 0840 (Given - Provider: Augie Bowling RN) calcium carbonate-vitamin D3 1,250mg (500mg elemental) - 5 mcg (200 units) per tablet 1 tablet 1 tablet, oral, Every morning, First dose on Tue10/17/21 at 0900 0830 (Given - Provider: Augie Bowling RN) 0840 (Given - Provider: uAgie Bowling RN) chlorhexidine (PERIDEX) 0.12 % solution 15 mL 15 mL, mouth/throat, 3 times daily after meals, First dose on Tue10/16/21 at 1938 1938 (Due) 0830 (Given - Provider: Augie Bowling RN)1308 (Given - Provider: Augie Bowling RN)1754 (Given - Provider: Aguie Bowling RN) 0840 (Given - Provider: Augie Bowling RN) nwakszqiwzd-qgpxpqagz-y ilanter (TRELEGY ELLIPTA) 100-62.5-25 mcg inhaler 1 puff (CANCELED) 1 puff, inhalation, Daily (respiratory coordinator), First dose on Tue10/16/21 at 1938, Rinse mouth with water after use. Do not swallow. 1953 (Not Given - Provider: Ayden Peoples, PIPPA - Reason: Medication not available) 0915 (Not Given - Provider: Estuardo Powell, PIPPA - Reason: Medication not available)1306 (Given - Provider: Estuardo Powell, PIPPA) 0845 (Given - Provider: Peg Isbell, PIPPA) qashxhbcspp-hjptbcbmy-c ilanter (TRELEGY ELLIPTA) 100-62.5-25 mcg inhaler 1 puff 1 puff, inhalation, Daily, First dose (after last modification) on Tue10/19/21 at 0900, Rinse mouth with water after use. Do not swallow. HYDROmorphone (DILAUDID) injection 0.5 mg (COMPLETED) 0.5 mg, intravenous, Administer over 2 Minutes, Once, On Tue10/16/21 at 1855, For 1 dose 1900 (Given - Provider: Nancy Terrell RN) losartan (COZAAR) tablet 25 mg 25 mg, oral, Every morning, First dose on Tue10/17/21 at 0900 0829 (Given - Provider: Augie Bowling RN) 0842 (Given - Provider: Augie Bowling RN) pantoprazole DR (PROTONIX) extended release tablet 40 mg 40 mg, oral, Daily, First dose on Tue10/16/21 at 1938, Do not crush, chew, cut, dissolve, open or otherwise manipulate tablet/capsule., Indications: Stress Ulcer Prophylaxis 1937 (Due) 0830 (Given - Provider: Augie Bowling RN) 0840 (Given - Provider: Augie Bowling RN) sodium chloride 0.9% flush 0.5-20 mL 0.5-20 mL, intra-catheter, Every 8 hours scheduled, First dose on Tue10/16/21 at 2200, Flush volume based on line type and size. 0009 (Given - Provider: Nomi Matos)0533 (Not Given - Provider: Domitila Tejeda RN - Reason: IV Infusing)1331 (Given - Provider: Augie Bowling RN)2200 (Due) 0600 (Not Given - Provider: Augie Bowling RN - Reason: Other) tamsulosin (FLOMAX) extended release capsule 0.4 mg 0.4 mg, oral, Every morning, First dose on Tue10/17/21 at 0900, Do not crush, chew, cut, dissolve, open or otherwise manipulate tablet/capsule. 0830 (Given - Provider: Augie Bowling RN) 0840 (Given - Provider: Augie Bowling RN) tranexamic acid (CYKLOKAPRON) 1,000 mg/10 mL (100 mg/mL) solution 1,000 mg (COMPLETED) 1,000 mg, topical, Once, On Tue10/16/21 at 1720, For 1 dose, Max rate of infusion is 100 mg/minute., Indications: Postsurgical Hemorrhage 1858 (Given - Provider: Nancy Terrell RN) tranexamic acid (CYKLOKAPRON) 1,000 mg/10 mL (100 mg/mL) solution 1,000 mg 1,000 mg, topical, Every 6 hours, First dose on Tue10/16/21 at 2315, Apply to gauze and place with pressure in mouth Max rate of infusion is 100 mg/minute., Indications: Postsurgical Hemorrhage 0008 (Given - Provider: Nomi Matos - Comment: mouth)0532 (Not Given - Provider: Domitila Tejeda RN - Reason: Other - Comment: pt no longer bleeding)1202 (Not Given - Provider: Augie Bowling RN - Reason: Order parameters not met - Comment: no bleed)1734 (Not Given - Provider: Augie Bowling RN - Reason: Order parameters not met - Comment: Not bleeding)2208 (Not Given - Provider: Domitila Tejeda RN - Reason: Order parameters not met) 0515 (Not Given - Provider: Augie Bowling RN - Reason: Other) Continuous Medication Order 10/16/2021 10/17/2021 10/18/2021 dextrose 5% and Lactated Ringer's infusion 75 mL/hr, intravenous, Continuous, Starting on Tue10/16/21 at 2315 2315 (Due) 0009 (New Bag - Provider: Nomi Matos)0700 (Rate/Dose Verify - Provider: Augie Bowling RN)0800 (Rate/Dose Verify - Provider: Augie Bowling RN)0900 (Rate/Dose Verify - Provider: Augie Bowling RN) PRN Medication Order 10/16/2021 10/17/2021 10/18/2021 acetaminophen (TYLENOL) tablet 1,000 mg 1,000 mg, oral, Every 6 hours PRN, 1st line for pain, Starting on Tue10/16/21 at 1931 0530 (Given - Provider: Domitila Tejeda RN) acetaminophen (TYLENOL) tablet 650 mg 650 mg, oral, Every 6 hours PRN, 2nd line for pain, Starting on Tue10/16/21 at 1930 albuterol 2.5 mg/0.5 mL nebulizer solution 2.5 mg(Linked Group 1) 2.5 mg, nebulization, Every 4 hours PRN (respiratory coordinator), wheezing, Starting on Tue10/16/21 at 1936 ipratropium (ATROVENT) 0.02 % nebulizer solution 0.5 mg(Linked Group 1) 0.5 mg, nebulization, Every 4 hours PRN (respiratory coordinator), wheezing, shortness of breath, Starting on Tue10/16/21 at 1936 oxyCODONE (ROXICODONE) tablet 5 mg (CANCELED) 5 mg, oral, Every 4 hours PRN, 1st line for pain, post-op pain, Starting on Tue10/16/21 at 1803, For 3 doses, Indications: Pain 1840 (Given - Provider: Nancy Terrell RN) oxyCODONE (ROXICODONE) tablet 5 mg 5 mg, oral, Every 4 hours PRN, breakthrough pain, intolerable pain, Starting on Tue10/16/21 at 1934, Indications: Pain 1610 (Given - Provider: Augie Bowling, RN)2207 (Given - Provider: Domitila Tejeda RN) sodium chloride 0.9% flush 0.5-20 mL 0.5-20 mL, intra-catheter, As needed, line care, Starting on Tue10/16/21 at 1938, Flush volume based on line type and size. Flush before and after each use. Linked Groups Order Group 1: albuterol 2.5 mg/0.5 mL nebulizer solution 2.5 mgJump to med 2.5 mg, nebulization, Every 4 hours PRN (respiratory coordinator), wheezing, Starting on Tue10/16/21 at 1936 And ipratropium (ATROVENT) 0.02 % nebulizer solution 0.5 mgJump to med 0.5 mg, nebulization, Every 4 hours PRN (respiratory coordinator), wheezing, shortness of breath, Starting on Tue10/16/21 at 1936 documented in this encounter Orders Medications Ordered That José Manuel ht Not Have Been Administered Count Last Ordered Date First Ordered Date kxpwnmipelq-uzuifrnmt-jmsqhs er (TRELEGY ELLIPTA) 100-62.5-25 mcg inhaler 1 puff 1 10/18/2021 acetaminophen (TYLENOL) tablet 650 mg 1 06/2022 albuterol 2.5 mg/0.5 mL nebu lizer solution 2.5 mg 1 10/16/2021 ipratropium (ATROVENT) 0.02 % nebulizer solution 0.5 mg 1 10/16/2021 Lactated Ringer's (LR) infusion 1 sodium chloride 0.9% flush 0.5-20 mL 1 10/06 Consult Count Last Ordered Date First Orde red Date IP CONSULT TO ENT 1 10/16/2021 CORE MEASURES Count Last Ordered Date First Ord ered Date REASON FOR NO VTE PROPHYLAXIS AT ADMISSION 1 10/16/2021 ADT Patient Update Count Last Ordered Date Firs t Ordered Date ED IP DECISION TO ADMIT 1 10/16/2021 documented in this encounter Care Teams Brand Sales Manager Relationship Specialty Start Date End Date Liliana May MD [address] [place] [address] PCP - General Family Medicine 01/01/21 Moose Singleton MD [address] [place] [address] Consulting Physician Otolaryngology 09/27/21 documented as of this encounter
--- OUTSIDE RECORDS SUMMARY | 2024-08-08 21:31 | XMS_ITS | Encounter Summary ---
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) Procedures CTA Abdominal Aorta And Bilateral Iliofemoral Runoff Moose Singleton MD [address] [place] [address] Phone: tel: fax: [facility] [address] [place] [address] Referral ID Status Reason Start Date Expiration Date Visits Re quested Visits Authorized [id number] Closed 09/28/2021 10/28/2022 1 1 EM DEVELOPMENT ENGINEER Encounter Details Date Type Department Care Team (Late st Contact Info) Description 09/28/2021 Orders Only [facility] ([facility]) - [facility] [address] [facility] [address] [place] [address] [place] [address] Bety Keith, KIA 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) Social History Tobacco Use Types Packs/Day Years Used Date Smoking Tobacco: Never Sex and Gender Information Value Date Recorded Sex Assigned at Not on file Legal Sex Male 8:41 AM CDT Gender Identity Not on file Sexual Orientation Not on file documented as of this encounter Plan of Treatment Not on file documented as of this encounter Results * CTA Abdominal Aorta And Bilateral Iliofemoral Runoff (10/01/2021 10:38 AM SYSTEM DEVELOPMENT ENGINEER) Anatomical Region Laterality Modality Body Bilateral Computed Tomogra phy 10/01/2021 11:2 6 AM SYSTEM DEVELOPMENT ENGINEER Impressions 10/01/2021 2:02 PM SYSTEM DEVELOPMENT ENGINEER 1. ??Right lower extremity: There is three-vessel [...] Samson Toro M.D. Narrative 10/01/2021 2:02 PM SYSTEM DEVELOPMENT ENGINEER EXAMINATION: ??CT ANGIOGRAPHY OF THE ABDOMEN, PELVIS, [...] unspecified documented in this encounter Care Teams Meter Record Clerk Relationship Specialty Start Date End Date Liliana May MD [address] [place] [address] PCP - General Family Medicine 01/01/21 Moose Singleton MD [address] [place] [address] Consulting Physician Otolaryngology 09/27/21 documented as of this encounter
--- OUTSIDE RECORDS SUMMARY | 2024-08-08 21:31 | XMS_ITS | Encounter Summary ---
Author Organization [facility] Address [address] [place] [address] Phone Care Team Providers Care Air Traffic Control Supervisor Name Role Phone Liliana May MD Primary Care Provider Moose Singleton MD Unavailable [phone] Reason for Visit * Reason Comments Squamous Cell Carcinoma floor of mouth Encounter Details Date Type Department Care Team (Late st Contact Info) Description 09/28/2021 10:20 AM DIRECTOR OF ENROLLMENT Office Visit [facility] ([facility]) - [facility] ENT [address] [facility] [address] [place] [address] [place] [id number] Moose Singleton MD [address] [place] [address] FOM (cancer of floor of [...] Sign Reading Time Taken Comments Blood Pressure 146/73 09/28/2021 10:34 AM DIRECTOR OF ENROLLMENT Pulse 78 09/28/2021 10:34 AM DIRECTOR OF ENROLLMENT Temperature - - Respiratory Rate - - Oxygen Saturation - - Inhaled Oxygen Concentration - - Weight 70.8 kg (156 lb) 09/28/2021 10:34 AM DIRECTOR OF ENROLLMENT Height 182.9 cm (6') 09/28/2021 10:34 AM DIRECTOR OF ENROLLMENT Body Mass Index 21.16 09/28/2021 10:34 AM DIRECTOR OF ENROLLMENT documented in this encounter Progress Notes * Moose Singleton MD - 09/28/2021 10:20 AM CST [facility] Department of Otolaryngology Division of Head and Neck Surgery 09/28/2021 Chilo Cross 1950 [id number] Referred by: Tavia Med onc: TBD Rad onc: TBD Chief Complaint: Chief Complaint Patient presents with ??? Squamous Cell Carcinoma floor of mouth HPI: Mr. Cross is a 71 y.o. [...] other symptoms. Bx showed SCC with Dr Squires He otherwise denies changes in voice, stridor, difficulty breathing, changes in swallow including dysphagia/odynophagia, otalgia. No other masses of the head and neck or cutaneous cancers of the headand neck. Denies any systemic symptoms including fevers, chills, night sweats, or weight loss. PAST MEDICAL HISTORY: History reviewed. No pertinent past medical history. PAST SURGICAL HISTORY: History reviewed. No pertinent surgical history. SOCIAL HISTORY: Social History Socioeconomic History ??? Marital status: Spouse name: Not on file ??? Number of children: Not on file ??? Years of education: Not on file ??? Highest education level: Not on file Occupational History ??? Not on file Tobacco Use ??? Smoking status: Never Smoker ??? Smokeless tobacco: Not on file Substance and Sexual Activity ??? Alcohol use: Not on file ??? Drug use: Not on file ??? Sexual activity: Not on file Other Topics Concern ??? Not on file Social History Narrative ??? Not on file Social Determinants of Health Financial Resource Strain: Not on file Food Insecurity: Not on file Transportation Needs: Not on file Physical Activity: Not on file Stress: Not on file Social Connections: Not on file Intimate Partner Violence: Not on file Housing Stability: Not on file FAMILY HISTORY: History reviewed. No pertinent family history. MEDICATIONS: Current Outpatient Medications Medication Sig Dispense Refill ??? benzonatate (TESSALON) 100 mg capsule ??? clopidogreL (PLAVIX) 75 mg tablet ??? doxycycline 100 mg tablet ??? Eliquis 5 mg tablet ??? furosemide (LASIX) 20 mg tablet ??? losartan (COZAAR) 25 mg tablet Take 25 mg by mouth daily ??? metoprolol XL (TOPROL-XL) 50 mg extended release tablet Take 50 mg by mouth daily ??? omeprazole (PriLOSEC) 40 mg capsule ??? predniSONE (DELTASONE) 20 mg tablet ??? tamsulosin (FLOMAX) 0.4 mg extended release capsule No current facility-administered medications for this visit. ALLERGIES: Sulfa (sulfonamide antibiotics) and Lisinopril IMMUNIZATIONS: There is no immunization history on file for this patient. REVIEW OF SYSTEMS: The patient-completed Review of [...] nodes, easy bruising PHYSICAL EXAM Vital Signs: BP 146/73 Pulse 78 Ht 182.9 cm (6') Wt 70.8 kg (156 lb) BMI 21.16 kg/m?? General: Well-developed, well-nourished. No distress. Communication [...] or tenderness Lips: No lesion. Oral cavity: 3 cm lesion just off midline on the left which is fixed to the lingual mandible. Approaches the tooth socket but does not involve. Oropharynx: No mass or lesion. Tonsillar fossa symmetric. Base of tongue soft without mass or induration. Neck Trachea: Midline trachea. Thyroid: No mass or nodularity. Lymphatics: No lymphadenopathy. Extremities: LEFT Arm with intact Alex's (collateral flow intact with occlusion of radial artery) FOE Procedure: Flexible fiberoptic nasopharyngoscopy/laryngoscopy (Scope): Indications: Need [...] complications. 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 The limited view of the [place] of [place] is unremarkable. Other than a [...] be reevaluated on the next follow-up. 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 I reviewed with Mr. Cross that recommended treatment for the majority of oral malignancies include a sequential approach involving surgery to address the primary tumor and neck region. Surgery, if elected, would involve triple endoscopy, composite resection, bilateral neck dissection and given the nature of the anticipated defect, likely free flap reconstruction such as LEFT radial forearm flap vs RIGHT fibula. The possibility of postoperative adjuvant radiation therapy and possibly even chemotherapy was reviewed and would depend upon histopathologic results, for example if advanced or adverse features were identified. Alternatively, I reviewed the option of primary non-surgical therapy including radiation, or chemoradiation therapy in organ preservation format although for oral tumors this would be less standard and may be associated with worse oncologic outcome compared to surgery. I also reviewed that with nonsurgical therapy that even if successful from an oncologic standpoint that there can still be significant negative functional consequences in a substantial percentage of patients which could be long-term or permanent. Referral to radiation oncology/medical oncology was offered should the patient wish to discuss or pursue nonsurgical options further. Finally, I reviewed the option of no treatment but did not recommend this and explained the risks of no treatment including likely continued growth and progression of disease, development of increasing symptoms, and ultimately life-threatening consequences including which the patient would need to accept if opting for no treatment. I also discussed that no matter which treatment type is elected that neither oncologic cure nor functional/cosmetic outcome can be guaranteed. I reviewed with patient risks, benefits, alternatives, and possible outcomes of surgery/treatment including but not limited to: bleeding, infection, risk of recurrence in the future, scar formation/cosmetic deformity, poor wound healing/wound breakdown, possible need for additional treatment if thefuture such as further surgery, radiation, and/or chemotherapy, as well as general risks including heart attack, stroke and . Risks relating to tongue/oral cavity resection were reviewed including swallowing/speech dysfunction, numbness, pain, motion impairment, tongue tethering, salivary fistula and hemorrhage. I discussed the likely possibility of tracheostomy and/or feeding tube as adjunctive measures which if carried out, are hoped to be temporary, although the possibility of long-termneed was also discussed. Risks and possible outcomes specifically relating to neck dissection were also reviewed including potential for single or multiple cranial nerve deficits resulting in weakness and/or numbness of the face, tongue, shoulder, and/or neck, lymphatic fistula, change in neck contour/deformity. Risks and possible outcomes relating to free flap reconstruction were reviewed including potential for partial or total free flap failure, need for revision, as well as donor site complications. Potential for donor site complications were reviewed including neurologic and/or vascular compromise of the arm/hand, tendon exposure/infection/poor healing, likely need for skin graft to the forearm donor site, skin graft failure, arm/hand numbness, loss or reduced use of arm/hand, chronic pain/discomfort, deformity/scar. Potential for donor site complications of fibula were also reviewed including neurologic and/or vascular compromise of the leg/foot, infection/poor healing, possibleneed for skin graft, altered walking ability, chronic pain/discomfort, deformity/scar. After review of the various options, Mr. Cross has opted to proceed with surgery as part of his overall management which I believe is reasonable for his condition. We will hence proceed with scheduling surgery in the near future as well as order appropriate preoperative testing and evaluation prior to surgery. I believe that Mr. Cross has a good understanding of the issues involved and I answered all of his questions. - tumor board - CPAP - thyroid FNA - rad onc referral - med onc referral Number/complexity of problems addressed: As noted above, this patient has an acute/chronic illness that poses a threat to life of bodily function, namely head and neck cancer with its associated risks of metastasis, medical complications, and . Risk of complications and/or M&M: This patient has high risk of morbidity from additional diagnostic testing or treatment due to a decision to proceed with elective major surgery of composite resection, ND, and free flap with identified patient or procedure risk factors as detailed above in my impression Moose Singleton MD PhD Sexual Assault Nurse Attending, Head and Neck Surgery Department of Otolaryngology [facility] [phone] (Clinical nurse Bety Keith) Pager [phone] CTOR OF ENROLLMENT documented in this encounter Plan of Treatment Not on file documented as of this encounter Visit Diagnoses Diagnosis 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)- Primary Malignant neoplasm of floor of mouth, part unspecified documented in this encounter Care Teams Air Traffic Control Supervisor Relationship Specialty Start Date End Date Liliana May MD [address] [place] [address] PCP - General Family Medicine 01/01/21 Moose Singleton MD [address] [place] [address] Consulting Physician Otolaryngology 09/27/21 documented as of this encounter
--- OUTSIDE RECORDS SUMMARY | 2024-08-08 21:31 | XMS_ITS | Encounter Summary ---
Author Organization [facility] Healthcare Address [address] [place] [address] Care Team Providers Care Investor Relations Manager Name Role Phone Liliana May MD Primary Care Provider Moose Singleton MD Unavailable [phone] Encounter Details Date Type Department Care Team (Late st Contact Info) Description 10/09/2021 7:30 AM GAS MAKER HELPER - 10/09/2021 9:25 PM GAS MAKER HELPER Surgery [facility] Operating Room [address] [place] [address] Moose Singleton MD [address] [place] [address] FLOOR OF MOUTH RESECTION, PARTIAL MANDIBULECTOMY, DENTAL EXTRACTIONS Surgery Details Date/Time Status Location OR Service Patient Class Case Class Case Type Trauma Case? 10/09/2021 7:30 AM Posted [facility] OR POD 5 220 Otolaryngology Surgery Admit Time Sensitive - 3 Weeks Panel 1 Procedure LRB Anes Op Region Wound Class Comments FLOOR OF MOUTH RESECTION, PARTIAL MANDIBULECTOMY, DENTAL EXTRACTIONS N/A General Mouth Class II - Cl denzel Contaminated DIRECT LARYNGOSCOPY, FLEXIBLE ESOPHAGOSCOPY N/A Choice Throat Class II - Clean Contaminated Surgeon Surgeon Role Service Panel Moose Singleton MD Primary Otolaryngolog y 1 Aleksandar Bragg MD Resident - Assisting Otolaryngo logy 1 John Torres MD Co-Surgeon Otolaryngology 1 Case Notes 10/01: Case approved by Dr. Haydee Aviles to run past 7 pm via E-mail. (DM)10/01: E-mail sent, waiting for permission to run past 7pm. (DM)09/24: Case moved to 10/09 from 10/13 per [place] via phone call. (DM)09/22: Missing DPC, message sent to resource nurse. (DM) documented in this encounter Social History Tobacco Use Types Packs/Day Years [...] Sign Reading Time Taken Comments Blood Pressure 131/71 10/09/2021 9:00 PM GAS MAKER HELPER Pulse 53 10/09/2021 9:00 PM GAS MAKER HELPER Temperature 36.4 ??C (97.6 ??F) 10/09/2021 7:00 PM CS T Respiratory Rate 14 10/09/2021 9:00 PM GAS MAKER HELPER Oxygen Saturation 93% 10/09/2021 9:00 PM GAS MAKER HELPER Inhaled Oxygen Concentration - - Weight - - Height - - Body Mass Index - - documented in this encounter Discharge Summaries * Cintia Ruffin MD - 10/11/2021 10:38 AM CST Inpatient Discharge Summary BRIEF OVERVIEW Admitting Provider: Moose Singleton MD Discharge Provider: Moose Singleton MD Primary Care Physician at Discharge: Liliana May MD [phone] Admission Date: 10/09/2021 Discharge Date: 10/11/2021 Admission Location: [facility] Problems/Diagnoses: 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 He was started on a clear liquid diet and transitioned to a full liquid diet on POD2. No evidence of fistula was noted during admission. He was tolerating full liquids without difficulty on day of discharge. He was also kept on prophylactic unasyn and transitioned to Augmentin on day - Peridex TID with meals - Full liquid diet until follow-up - Augmentin for 2 weeks - Restart plavix and eliquis POD 5 Bradycardia Patient developed brief episodes of bradycardia without symptoms or blood pressure changes. His metoprolol was held. - Hold metoprolol on discharge - F/u with PCP/forging die sinker to restart medication Medical Conditions Present Prior to Admission Afib - holding home metoprolol due to bradycardia - f/u with cardiology/PCP after dispo for this - restart eliquis on POD5 ?? HTN - losartan ?? CAD - Restart Plavix on POD5 ?? COPD - Home Trelegy ?? BPH - Home Flomax Active Issues Requiring Follow-up: 1. Restart plavix and eliquis 2. Metoprolol -- f/u with forging die sinker/PCP Test Results Pending at Discharge: Pending Labs Order Current Status Gross/Hardware Collected (10/09/21 1146) Surgical pathology In process Operative Procedures Performed: Procedure(s): FLOOR OF MOUTH RESECTION, PARTIAL MANDIBULECTOMY, DENTAL EXTRACTIONS DIRECT LARYNGOSCOPY, FLEXIBLE ESOPHAGOSCOPY Other Procedures: None Pertinent Test Results: None Discharge Details Physical Exam at Discharge: Discharge Condition: good Pulse: 52 Resp: 21 BP: 136/49 Temp: 36.5 ??C (97.7 ??F) Weight: Pertinent Exam Findings at Discharge: anterior FOM incision is c/d/i w/o areas of dehiscence Discharge Disposition: Code Status at Discharge: full Discharge Instructions: ENT Post Operative Discharge Instructions Procedure: L FOM resection, mandibulectomy, and dental extractions Diet: Full liquid diet (see details below). Swallowing pills is ok. To supplement your nutrition, you may also take supplement drinks such as Ensure or Boost. These can be found at any grocery or drug store. Activity: Do not drive, operative heavy machinery, or make important legal decisions for the next 24 hours or while taking narcotic pain medication. No heavy lifting >2 grocery bags or strenuous activity or exercise for the next 2 weeks. You may otherwise resume normal daily activities. Wound Care: There is a wound inside your mouth with absorbable sutures. These may cause some irritation temporarily, but will dissolve over the next several weeks. Please use the prescribed mouth wash as instructed after meals to cleanse the mouth and keep your incision clean. Medications: - Pain: Please take tylenol and ibuprofen every 6 hours for pain. If they do not adequately controlyour pain, you may utilize the prescription pain medication. You should not drive while taking narcotic pain medication. Narcotic pain medication can make you constipated; take a stool softener as needed. - Antibiotic (Augmentin): Please take the prescribed antibiotic as instructed until all pills are gone. - Plavix and Eliquis: please restart taking these medications 5 days after surgery (10/14/21). - Metoprolol: This medication was stopped while you were in the hospital due to a low heart rate (bradycardia). Please stop taking this medication when you go home. You should follow-up with your family doctor or forging die sinker on Tuesday to determine whether you should continue this medication. Questions: If you have any concerns or questions, or develop worrisome symptoms such as worsening pain or swelling, bleeding, fever, or vomiting, call your doctor. Use [phone] if you are calling during weekday business hours (8am-5pm Tuesday through Tuesday), otherwise call [phone] and ask for the ENT resident manager collection. Discharge Medications: Current Medications TAKE these medications [...] as: PERIDEX clopidogreL 75 mg tablet Take 75 mg by mouth every morning Commonly known as: PLAVIX Eliquis 5 mg tablet Take 5 mg by mouth 2 (two) times a day For: atrial fibrillation Generic drug: apixaban furosemide 20 mg tablet Take 20 mg [...] morning For: reflux Commonly known as: PriLOSEC PROAIR HFA INHAL as needed tamsulosin 0.4 mg extended release capsule Take 0.4 mg by mouth every morning Commonly known as: FLOMAX Trelegy Ellipta 100-62.5-25 mcg inhaler Inhale 1 puff every morning Generic drug: qwekcgyimuk-iywjofbea-hegqzrnp * This list has 2 medication(s) that are the same as other medications prescribed for you. Read the directions carefully, and ask your doctor or other care provider to review them with you. Outpatient Follow-Up: Future Appointments Date Time Provider Department Center 10/26/2021 2:00 PM Della Hensley SLP [facility] 10/26/2021 3:20 PM Moose Singleton MD [facility] 10/30/2021 1:00 PM Scot Pollock MD [facility] Cosigned by Moose Singleton MD at 10/12/2021 8:35 AM GAS MAKER HELPER MAKER HELPER MAKER HELPER documented in this encounter Discharge Instructions * Discharge Instructions* Corina Mccracken MD - 10/11/2021 2:39 PM GAS MAKER HELPER ENT Post Operative Discharge Instructions Procedure: L FOM resection, mandibulectomy, and dental extractions Diet: Full liquid diet (see details below). Swallowing pills is ok. To supplement your nutrition, you may also take supplement drinks such as Ensure or Boost. These can be found at any grocery or drug store. Activity: Do not drive, operative heavy machinery, or make important legal decisions for the next 24 hours or while taking narcotic pain medication. No heavy lifting >2 grocery bags or strenuous activity or exercise for the next 2 weeks. You may otherwise resume normal daily activities. Wound Care: There is a wound inside your mouth with absorbable sutures. These may cause some irritation temporarily, but will dissolve over the next several weeks. Please use the prescribed mouth wash as instructed after meals to cleanse the mouth and keep your incision clean. Medications: - Pain: Please take tylenol and ibuprofen every 6 hours for pain. If they do not adequately controlyour pain, you may utilize the prescription pain medication. You should not drive while taking narcotic pain medication. Narcotic pain medication can make you constipated; take a stool softener as needed. - Antibiotic (Augmentin): Please take the prescribed antibiotic as instructed until all pills are gone. - Plavix and Eliquis: please restart taking these medications 5 days after surgery (10/14/21). - Metoprolol: This medication was stopped while you were in the hospital due to a low heart rate (bradycardia). Please stop taking this medication when you go home. You should follow-up with your family doctor or forging die sinker on Tuesday to determine whether you should continue this medication. Questions: If you have any concerns or questions, or develop worrisome symptoms such as worsening pain or swelling, bleeding, fever, or vomiting, call your doctor. Use [phone] if you are calling during weekday business hours (8am-5pm Tuesday through Tuesday), otherwise call [phone] and ask for the ENT resident manager collection. MAKER HELPER documented in this encounter Medications at Time of Discharge albuterol sulfate (PROAIR HFA INHAL) as needed 01/21/2008 benzonatate (TESSALON) 200 mg capsuleIndications :Cough Take 200 mg by mouth as needed 06/24/2021 calcium carbonate/vitamin D3 (CALCIUM 500 + D, D3, ORAL) Take by mouth every morning cetirizine (ZyrTEC) 10 mg tablet Take 10 mg by mouth as needed for allergies fluticasone-umecli din-vilanter (Trelegy Ellipta) 100-62.5-25 mcg inhaler [...] 23 clopidogreL (PLAVIX) 75 mg tablet Take 75 mg by mouth every morning 07/15/2021 10/18/19 22 Eliquis 5 mg tabletIndications: atrial fibrillation Take 5 mg by mouth 2 (two) times a day 09/11/2021 10/18/19 22 furosemide (LASIX) 20 mg tablet Take 20 [...] 04/18/20 23 documented as of this encounter Ordered Prescriptions Prescription Sig Dispense Quantity Refills Last Filled Start Date End Date oxyCODONE (ROXICODONE) 5 mg immediate release tabletIndications: Pain Take 1 tablet (5 mg total) by mouth every 4 (four) hours as needed (intolerable pain) for up to 40 doses 40 tablet 10/11/2021 3 chlorhexidine (PERIDEX) 0.12 % solution Apply 15 mL to the mouth or throat 3 (three) times a day after meals 473 mL 10/11/2021 3 amoxicillin-clavul anate (AUGMENTIN) 875-125 mg per tablet Take 1 tablet by mouth 2 (two) times a day for 14 days 28 tablet 10/11/2021 2 ibuprofen (ADVIL,MOTRIN) 600 mg tablet Take 1 tablet (600 mg total) by mouth every 6 (six) hours as needed for pain 30 tablet 10/11/2021 2 acetaminophen (TYLENOL) 500 mg tablet Take 2 tablets (1,000 mg total) by mouth every 6 (six) hours as needed for pain 30 tablet 10/11/2021 2 documented in this encounter Discharge Disposition Disposition Code Departure Means Destination Discharge to home or self care [facility] documented in this encounter Progress Notes * Cintia Ruffin MD - 10/11/2021 10:30 AM CST Otolaryngology - Head & Neck Surgery Daily Progress Subjective Chief complaint: No chief complaint on file. Interval History: - Patient feels well this AM, tolerating clear liquid diet. No nausea or vomiting - episodes of asymptomatic bradycardia overnight (down to 30s) without changes in BP. Metoprolol held Objective VITALS, 24HR MIN/MAX: Temp Min: 36.5 ??C (97.7 ??F) Max: 36.7 ??C (98.1 ??F) Pulse Min: 46 Max: 73 BP Min: 110/79 Max: 146/65 Resp Min: 18 Max: 26 SpO2 Min: 90 % Max: 99 % I&O I/O last 2 completed shifts: In: 3456.7 [P.O.:480; I.V.:2416.7; IV Piggyback:560] Out: 2680 [Urine:2680] Net IO Since Admission: 2,186.67 mL [10/11/21 1030] Output by Drain (mL) 10/09/21 0700 - 10/09/21 1859 10/09/21 1900 - 10/10/21 0659 10/10/21 0700 - 10/10/21 1859 10/10/21 1900 - 10/11/21 0659 10/11/21 0700 - 10/11/21 1030 Patient has no LDAs of requested type attached. Scheduled Continuous As needed ampicillin-sulbactam, 3 g, intravenous, Q6H AMEE dexAMETHasone, 10 mg, intravenous, Q8H AMEE enoxaparin, 40 mg, subcutaneous, Daily-2100 nwtoiyivdes-mynahnjup-krxjhpig, 1 puff, inhalation, Daily (RT) metoprolol XL, 50 mg, oral, QAM pantoprazole, 40 mg, intravenous, Daily sodium chloride 0.9%, 0.5-20 mL, intra-catheter, Q8H AMEE tamsulosin, 0.4 mg, oral, QAM ??? acetaminophen, 650 mg ??? albuterol HFA, 2 puff ??? oxyCODONE, 5 mg ??? sodium chloride 0.9%, 0.5-20 mL Physical Exam: Vitals: 10/11/21 0800 10/11/21 0850 10/11/21 0900 10/11/21 1000 BP: BP Location: Patient Position: Pulse: 64 52 57 52 Resp: 25 20 20 21 Temp: 36.5 ??C (97.7 ??F) TempSrc: Axillary SpO2: 96% 98% 99% 97% General: Alert & oriented, resting comfortably in bed. Head and Face: Atraumatic, normocephalic Eyes: PERRL, EOMI Ears: Normal external ears. No drainage Nose: Dorsum midline. No drainage Oral Cavity: Partial closure site visible on lower rim of mandible. No active bleeding, MMM. Neck: Soft and flat Resp: Quiet breathing, normal effort on room air. CV: Warm and well perfused. Abd: Soft, non-tender, non-distended. Neuro: Regards, follows commands. Moving all extremities well. Lab/Radiology/Diagnostic Review: LABS 24 HOURS: Lab Results Component Value Date WBC 11.1 (H) 10/09/2021 HGB 14.0 10/09/2021 HCT 42.7 10/09/2021 LABPLAT 144 (L) 10/09/2021 ALT 15 10/05/2021 AST 21 10/05/2021 SODIUM 139 10/09/2021 POTASSIUM 4.2 10/09/2021 CHLORIDE 103 10/09/2021 BUNSER 18 10/09/2021 CO2 27 10/09/2021 CREATININE 1.12 10/09/2021 GLUCOSE 131 10/09/2021 CALCIUM 9.0 10/09/2021 CAION 4.70 10/09/2021 PHOS 1.6 (L) 10/09/2021 MAGNESIUM 1.4 10/09/2021 TSH 3.81 10/05/2021 PT 16.0 (H) 10/05/2021 INR 1.4 (H) 10/05/2021 No results found for: MICROBIOLOGY, DIRECTEXAM US Thyroid Narrative: EXAMINATION: THYROID SONOGRAM 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 Prior Biopsy: No Patient Risk Factors: None Prior Ultrasound: None FINDINGS: The thyroid is normal in size. [...] seen in the central or lateral neck. Impression: 1. Follow-up thyroid ultrasound in one year is recommended for the right thyroid nodules. Dictated by: Edgardo Zamora M.D. The radiology attending physician has personally reviewed this study, and had reviewed and/or edited this written report and agrees with it. Electronically signed by: Reinier Reese M.D. , PHD CTA Abdominal Aorta And Bilateral Iliofemoral Runoff Narrative: EXAMINATION: CT ANGIOGRAPHY OF THE ABDOMEN, PELVIS, [...] spine. There is severe bilateral hip osteoarthritis. Impression: 1. Right lower extremity: There is three-vessel [...] it. Electronically signed by: Samson Toro M.D. 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 s/p OR WLE, rim mandibulectomy, partial closure with remaining left to heal by secondary intention Plan: #Postoperative care - Pain control: Tylenol/PRN oxy - Airway: [place] - Diet: start FLD diet today - GI ppx: protonix - Abx: unasyn - DVT ppx: lovenox, SCDs, OOB - Cunningham: none #Bradycardia, asymptomatic - brief episodes not associated with symptoms or BP changes - holding home metop - f/u with cardiology/PCP #Afib - holding home metoprolol due to bradycardia - f/u with cardiology/PCP after dispo for this - restart eliquis on POD5 #HTN - losartan #CAD - Restart Plavix on POD5 #COPD - Home Trelegy #BPH - Home Flomax Electrolyte Management: None Cintia Ruffin MD Otolaryngology - Head & Neck Surgery For questions please reach out to: Tue - Tue Daytime: ASHLEY Mcgovern at [phone] Mon Daytime (backup Tue-Tue Days): See [facility] for [facility] (pw: [email or web address]) Weekends & After 6pm: ENT Consult Cosigned by Moose Singleton MD at 10/12/2021 8:36 AM GAS MAKER HELPER MAKER HELPER MAKER HELPER * Maria Elena Wise MD - 10/10/2021 3:53 PM CST Otolaryngology - Head & Neck Surgery Daily Progress Subjective Chief complaint: No chief complaint on file. Interval History: - NAEON, AFVSS, no labs - Patient feels well this AM, tolerating secretions - Urine noted to be blood-tinged, likely 2/2 cunningham removal trauma, will CTM Objective VITALS, 24HR MIN/MAX: Temp Min: 36.4 ??C (97.6 ??F) Max: 36.6 ??C (97.9 ??F) Pulse Min: 50 Max: 81 BP Min: 106/90 Max: 158/84 Resp Min: 11 Max: 25 SpO2 Min: 90 % Max: 99 % I&O I/O last 2 completed shifts: In: 2210 [I.V.:2100; IV Piggyback:110] Out: 1120 [Urine:1095; Blood:25] Net IO Since Admission: 740 mL [10/10/21 1554] Output by Drain (mL) 10/08/21 0700 - 10/08/21 18510/08/21 1900 - 10/09/21 0659 10/09/21 0700 - 10/09/21 1859 10/09/21 1900 - 10/10/21 0659 10/10/21 0700 - 10/10/21 1554 Patient has no LDAs of requested type attached. Scheduled Continuous As needed ampicillin-sulbactam, 3 g, intravenous, Q6H AMEE dexAMETHasone, 10 mg, intravenous, Q8H AMEE enoxaparin, 40 mg, subcutaneous, Daily-2100 deileectluz-xqrqzcqtl-rjedopug, 1 puff, inhalation, Daily (RT) metoprolol XL, 50 mg, oral, QAM pantoprazole, 40 mg, intravenous, Daily sodium chloride 0.9%, 0.5-20 mL, intra-catheter, Q8H AMEE tamsulosin, 0.4 mg, oral, QAM sodium chloride 0.9%, 100 mL/hr, Last Rate: 100 mL/hr (10/10/21 1159) ??? acetaminophen, 650 mg ??? albuterol HFA, 2 puff ??? oxyCODONE, 5 mg ??? sodium chloride 0.9%, 0.5-20 mL Physical Exam: Vitals: 10/10/21 1300 10/10/21 1400 10/10/21 1500 10/10/21 1530 BP: 119/69 135/64 110/79 BP Location: Left arm Left arm Left arm Patient Position: Lying;HOB 30 degrees Lying;HOB 30 degrees Lying Pulse: 61 60 72 68 Resp: 19 21 19 23 Temp: TempSrc: SpO2: General: Alert & oriented, resting comfortably in bed. Head and Face: Atraumatic, normocephalic Eyes: PERRL, EOMI Ears: Normal external ears. No drainage Nose: Dorsum midline. No drainage Oral Cavity: Partial closure site visible on lower rim of mandible. No active bleeding, MMM. Neck: Soft and flat Resp: Quiet breathing, normal effort on room air. CV: Warm and well perfused. Abd: Soft, non-tender, non-distended. Neuro: Regards, follows commands. Moving all extremities well. Lab/Radiology/Diagnostic Review: LABS 24 HOURS: Lab Results Component Value Date WBC 11.1 (H) 10/09/2021 HGB 14.0 10/09/2021 HCT 42.7 10/09/2021 LABPLAT 144 (L) 10/09/2021 ALT 15 10/05/2021 AST 21 10/05/2021 SODIUM 139 10/09/2021 POTASSIUM 4.2 10/09/2021 CHLORIDE 103 10/09/2021 BUNSER 18 10/09/2021 CO2 27 10/09/2021 CREATININE 1.12 10/09/2021 GLUCOSE 131 10/09/2021 CALCIUM 9.0 10/09/2021 CAION 4.70 10/09/2021 PHOS 1.6 (L) 10/09/2021 MAGNESIUM 1.4 10/09/2021 TSH 3.81 10/05/2021 PT 16.0 (H) 10/05/2021 INR 1.4 (H) 10/05/2021 No results found for: MICROBIOLOGY, DIRECTEXAM US Thyroid Narrative: EXAMINATION: THYROID SONOGRAM 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 Prior Biopsy: No Patient Risk Factors: None Prior Ultrasound: None FINDINGS: The thyroid is normal in size. [...] seen in the central or lateral neck. Impression: 1. Follow-up thyroid ultrasound in one year is recommended for the right thyroid nodules. Dictated by: Edgardo Zamora M.D. The radiology attending physician has personally reviewed this study, and had reviewed and/or edited this written report and agrees with it. Electronically signed by: Reinier Reese M.D. , PHD CTA Abdominal Aorta And Bilateral Iliofemoral Runoff Narrative: EXAMINATION: CT ANGIOGRAPHY OF THE ABDOMEN, PELVIS, [...] spine. There is severe bilateral hip osteoarthritis. Impression: 1. Right lower extremity: There is three-vessel [...] it. Electronically signed by: Samson Toro M.D. 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 s/p OR WLE, rim mandibulectomy, partial closure with remaining left to heal by secondary intention Plan: #Postoperative care - Pain control: Tylenol/PRN oxy - Airway: [place] - Diet: CLD POD1 in PM -> FLD POD2 in AM - GI ppx: protonix - Abx: unasyn - DVT ppx: lovenox, SCDs, OOB - Cunningham: none #HTN - Home metoprolol #CAD - Restart Plavix on POD2 #COPD - Home Trelegy #BPH - Home Flomax Electrolyte Management: None Maria Elena Wise MD Otolaryngology - Head & Neck Surgery For questions please reach out to: Tue - Tue Daytime: ASHLEY Mcgovern at [phone] Mon Daytime (backup Tue-Tue Days): See [facility] for [facility] (pw: [email or web address]) Weekends & After 6pm: ENT Consult Cosigned by Moose Singleton MD at 10/12/2021 8:36 AM GAS MAKER HELPER MAKER HELPER MAKER HELPER * Maria Elena Wise MD - 10/09/2021 6:48 PM CST Post Operative Assessment Chilo Ji is a 71 y.o. male s/p 10/09/2021 FLOOR OF MOUTH RESECTION, PARTIAL MANDIBULECTOMY, DENTAL EXTRACTIONS, N/A - Mouth DIRECT LARYNGOSCOPY, FLEXIBLE ESOPHAGOSCOPY, N/A - Throat Patient seen in stable condition. Denies post-operative nausea, vomiting, chest pain, and SOB. Painis well-controlled at this time. Physical Exam Vitals: 10/09/21 1600 BP: 125/54 Pulse: 59 Resp: 12 Temp: SpO2: 97% General: Alert & oriented, resting comfortably in bed. Head and Face: Atraumatic, normocephalic Eyes: PERRL, EOMI Ears: Normal external ears. No drainage Nose: Dorsum midline. No drainage Oral Cavity: Partial closure site visible on lower rim of mandible. No active bleeding, MMM. Neck: Soft and flat Resp: Quiet breathing, normal effort on room air. CV: Warm and well perfused. Abd: Soft, non-tender, non-distended. Neuro: Regards, follows commands. Moving all extremities well. Assessment: 71 y.o. 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 s/p OR WLE, rim mandibulectomy, partial closure with remaining left to heal by secondary intention Plan: - Pain control: Tylenol/PRN oxy - Airway: [place] - Diet: NPO -> CLD POD1 in PM -> FLD POD2 in AM - GI ppx: protonix - Abx: unasyn - DVT ppx: lovenox, SCDs, OOB - Cunningham: none Maria Elena Wise MD Otolaryngology - Head & Neck Surgery For questions please reach out to: Tue - Tue Daytime: ASHLEY Mcgovern at [phone] Mon Daytime (backup Tue-Tue Days): See [facility] for [facility] (pw: [facility]) Weekends & After 6pm: ENT Consult MAKER HELPER documented in this encounter H&P Notes * Aleksandar Bragg MD - 10/09/2021 6:20 AM CST I have reviewed the H&P, examined the patient, and endorse the findings as written. Plan of Care : Based on the above findings, I consider Chilo Ji to be an acceptable risk for : Procedure(s): FREE FLAP LEG vs Left Forearm FREE FLAP RADIAL FOREARM vs Rigth Fib Flap DISSECTION NECK - BILATERAL TRACHEOSTOMY GLOSSECTOMY SPLIT THICKNESS SKIN GRAFT - UPPER EXTREMITY ESOPHAGOSCOPY Cosigned by Moose Singleton MD at 10/09/2021 7:27 AM GAS MAKER HELPER MAKER HELPER MAKER HELPER Source Note - Breanne Flowers NP - 10/05/2021 9:37 AM GAS MAKER HELPER Images from the original note were not included. [facility] Planning Preoperative Evaluation Record Evaluation type/location: [facility] Planned procedure site: [facility] (Pods 2/3/5/[facility]) Date: 10/05/21 Anesthesia Evaluation Chilo Ji is a 71 y.o. 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 PMH includes HTN, CAD s/p stent 05/22/2021, COPD, current smoker, pulmonary htn, and GERD. Past Medical History Information obtained from: patient and chart. Neurological + Psychiatric history Pertinent negatives: seizures; neuromuscular disease; CVA/stroke; TIA; CEA; ICA stenosis; dementia/mild cognitive impairment and carotid artery stent Cardiovascular + Hypertension Hypertension year diagnosed: 2013. Typical systolic BP - 130 Typical diastolic BP - 80 + CAD + Drug-eluting stent(s) (ROGER Orsiro 3.0 x 3.0 to circumflex) - Prior stent(s) date: 05/22/2021. + Systolic or diastolic dysfunction w/o CHF (echo 01/2021) LVEF: 20-30%. + Current valvular disease - AR - mild; - mild; MR - mild-moderate; TR - mild. + Atrial fibrillation/flutter - Current Rhythm: atrial fibrillation. Pertinent negatives: MT ; CABG ; valve replacement; arrhythmia; pacemaker/ICD; PVD; DVT/PE; negative for CHF; bare metal stent(s) and coronary angioplasty Respiratory + COPD (uses Trelegy daily, rescue inhaler weekly to monthly) - emphysema. Rescue inhaler use: 2 days/week or less. Hospitalizations/ER in the last year: 1. Most recent exacerbation: 07/2021. + Pulmonary hypertension (echo 01/2021) Echo PA systolic: 40. RV function: normal. + Current smoker - Counseled to abstain from smoking the day of surgery. Pertinent negatives: asthma; sleep apnea (ZEYAD); no O2 use outside the hospital and no prior intubation for respiratory failure Hepatic / Heme Pertinent negatives: liver disease; history of anemia; history of thrombocytopenia and history of Maryam positive Gastrointestinal + GERD Pertinent negatives: hiatal hernia Renal / + Renal disease - CKD Pertinent negatives: dialysis and nephrolithiasis Comments: +BPH Musculoskeletal/Pain + Chronic pain - back pain. Pertinent negatives: chronic opioid use and previous treatment for opioid use disorder Endocrine / Other + Cancer history- current cancer. Cancer type: oral SCC. Pertinent negatives: diabetes mellitus; thyroid disease; obesity (BMI >30); rheumatological disease and transplanted organ Functional Capacity Functional capacity: <4 METs Comments: Pt is able to walk about 1/2 block or a flight of stairs, does endorse JASSO, denies CP with exertion. Recently completed cardiac rehab. Review of Systems + orthopnea (sleeps with 2 pillows 2/2 coughing, prefers to lay on side) + chronic pain + numbness/tingling (hands tingle) + vision loss (glasses) Pertinent negatives: productive cough; wheezing; SOB; recent cold/flu; fever; chest pain; palpitations; pedal edema; PND; Sickle Cell disease/trait; previous transfusion; transfusion reaction; melena/hematochezia; easy bruising; bleeding problems; syncope; dizziness; muscle weakness; hard of hearing; heartburn; nausea; dysphagia; diarrhea; dentures/partials; chipped/loose teeth; abdominal pain; diaphoresis and no unexpected weight change PAT Summary and Plans Cardiac risk classification of planned procedure: high cardiac risk. Preoperative assessment status: discussion w/ other MDs required and lab tests ordered. Initial preoperative evaluation discussed with: Jose Daniel Dexter MD Additional comments: Chilo Ji is a 71 y.o. male who is being evaluated prior to undergoing a high cardiac risk surgery. Revised Cardiac Risk Index factors are (ischemic heart disease, CHF) for a total RCRI of 2 out of 6. Functional capacity is . Obstructive sleep apnea (ZEYAD) screening status is STOP-Bang=4 suggesting moderate risk for ZEYAD, bicarbonate value pending. Blood bank needs for day of procedure: Type and Screen only Pending labs/tests include: CBC CMP T&S PT PTT Patient's COVID19 status is: Unexposed. The patient currently has no concerning symptoms of COVID19. . Patient's COVID-19 vaccination status is Fully vaccinated. Patient has received COVID Booster. Documentation of vaccination status is available in the Epic Immunization tab. . Plan for pre-procedure COVID19 testing: Surgery date within 4 days. Pre-procedure COVID19 testing performed at [facility]. Result pending- to be reviewed by surgeon's office. This patient has a history of atrial fibrillation at LOW risk for perioperative thromboembolic events with a [id number] score of 4 and no known history of related thromboembolic events, as per the 2017 ACC Expert Consensus Pathway. The patient is on oral anticoagulation therapy with apixaban (ELIQUIS) and is scheduled for a procedure with a planned/possible nerve block and/or is at low or intermediate risk for perioperative thrombosis. Estimated creatinine clearance is 64 ml/min. We recommend holding all doses of this anticoagulant for 72 hours prior to the procedure. Therapeutic anticoagulation should be resumed post-operatively when the bleeding risk is acceptable. Alternative anticoagulation therapies can be used in the interim if acceptable. The patient is on clopidogrel therapy and has a history of ROGER. Because the risk of increased bleeding likely outweighs the benefits of this therapy perioperatively, we recommend discontinuing clopidogrel for 7 days prior to the procedure and resuming therapy when feasible in the postoperative period. Per Dr Dexter, advised pt to start 81mg Aspirin once plavix is stopped pre-op. Pt verbalizes understanding. >>Pt's surgery is scheduled for 10/09; pt is still on his plavix, last dose taken this morning.If advised to stop tomorrow, this will only be a 3 day hold prior to surgery. Message left with surgeon's office to determine if ok to proceed with surgery with only 3 day hold of plavix. IF SO, willthen instruct pt to stop his Eliquis tomorrow. If surgery will be delayed, will instruct pt to hold Eliquis for 3 days prior to surgery. Awaiting on response from surgeon's office. >>Pt has severe emphysema noted on chest CT, pt reports he feels at this baseline, last hospitalization 07/2021. Will obtain last OVN from interior design coordinator. Preoperative evaluation performed by Breanne Flowers NP on 10/05/21 at 9:58 AM. . Follow up note Spoke with Bety in Dr Singleton's office, who reports Dr Singleton is OK with proceeding with surgery with only a 3 day hold on Plavix. Spoke with pt and instructed pt to stop Eliquis and Plavix now, lastdose for both will be today 10/05 and to begin 81 mg Aspirin tomorrow. Pt verbalizes understanding. >Awaiting labs and OVN from [id number]. Follow-up completed by: Breanne Flowers NP on 10/05/21 at 1:29 PM Follow up note Labs reviewed and are significant for: INR 1.4; patient taking NOAC day of blood draw, coags likelyinaccurate. No known liver disease. Awaiting pulmonology note. Labs reviewed and are significant for a total CO2 of 28 . With a STOP-Bang score of 3-4, this qualifies the patient as high risk for severe ZEYAD. ZEYAD order set initiated. Awaiting outside records. Surgeon's office reviews laboratory results independently, including final results of surgeon ordered labs. Follow-up completed by: Elsa Law NP on 10/06/21 at 9:46 AM Follow up note Reviewed last OVN from pulmonology in [facility] and most recent PFT's as noted below, which show moderate obstructive ventilatory impairment without response to bronchodilators. Mild diffusion impairment. Discussed with CPAP attending Dr Gramajo and Dr Dexter, d/t low EF, recent heart stent and significant COPD, message sent to surgeon's office (and Bety in surgeon's office notified) informing surgeon of significant risk related to this surgery. Awaiting response. Follow-up completed by: Breanne Flowers NP on 10/06/21 at 2:07 PM Discussed with: Salomón Gramajo MD Follow up note Dr Gramajo reached out to Dr Singleton to ensure he was aware of the patient's significant comorbidities, risk for heart failure post-op as well as potential need for SICU post-op. Surgeon understands andwould like to proceed as this is a malignancy. POD leader notified as well. CPAP complete. Follow-up completed by: Breanne Flowers NP on 10/07/21 at 2:37 PM Patient Active Problem List Diagnosis ??? 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) ([facility]) History reviewed. No pertinent past medical history. Past Surgical History: Procedure Laterality Date ??? BRONCHOSCOPY ??? CARDIAC STENT PLACEMENT ??? VASECTOMY Allergies Allergen Reactions ??? Sulfa (Sulfonamide Antibiotics) Shortness of breath ??? Lisinopril Cough Med List Status: Nurse Complete Set By: Estefany Carter RN at 10/05/2021 9:59 AM Taking? Last Dose Start Date End Date Provider acetaminophen (TYLENOL) 325 mg tablet -- -- Radha Romano MD albuterol sulfate (PROAIR HFA INHAL) Past Week 01/21/08 -- Radha Romano MD benzonatate (TESSALON) 200 mg capsule Past Week 06/24/21 -- Radha Romano MD calcium carbonate/vitamin D3 (CALCIUM 500 + D, D3, ORAL) 10/04/2021 -- -- Radha Romano MD cetirizine (ZyrTEC) 10 mg tablet 10/04/2021 -- -- Radha Romano MD clopidogreL (PLAVIX) 75 mg tablet 10/05/2021 07/15/21 -- Radha Romano MD Eliquis 5 mg tablet 10/05/2021 09/11/21 -- Radha Romano MD mzawjualsft-tswsryfpj-bszyfffb (Trelegy Ellipta) 100-62.5-25 mcg inhaler 10/05/2021 01/21/08 -- Radha Romano MD furosemide (LASIX) 20 mg tablet Past Month 06/24/21 -- Radha Romano MD ipratropium-albuteroL (DUO-NEB) 0.5-2.5 mg/3 mL nebulizer solution Past Week -- -- Radha Romano MD losartan (COZAAR) 25 mg tablet 10/05/2021 06/27/21 -- Radha Romano MD metoprolol XL (TOPROL-XL) 50 mg extended release tablet 10/05/2021 06/27/21 -- Radha Romano MD omeprazole (PriLOSEC) 40 mg capsule 10/05/2021 08/06/21 -- Radha Romano MD tamsulosin (FLOMAX) 0.4 mg extended release capsule 10/05/2021 07/28/21 -- Radha Romano MD Current Outpatient Medications: ??? acetaminophen (TYLENOL) 325 mg tablet ??? albuterol sulfate (PROAIR HFA INHAL) ??? benzonatate (TESSALON) 200 mg capsule ??? calcium carbonate/vitamin D3 (CALCIUM 500 + D, D3, ORAL) ??? cetirizine (ZyrTEC) 10 mg tablet ??? clopidogreL (PLAVIX) 75 mg tablet ??? Eliquis 5 mg tablet ??? cejxmprpqbw-dcqkbdgaq-jechllgc (Trelegy Ellipta) 100-62.5-25 mcg inhaler ??? furosemide (LASIX) 20 mg tablet ??? ipratropium-albuteroL (DUO-NEB) 0.5-2.5 mg/3 mL nebulizer solution ??? losartan (COZAAR) 25 mg tablet ??? metoprolol XL (TOPROL-XL) 50 mg extended release tablet ??? omeprazole (PriLOSEC) 40 mg capsule ??? tamsulosin (FLOMAX) 0.4 mg extended release capsule Social History Tobacco Use Smoking Status Current Every Day Smoker ??? Packs/day: 0.40 ??? Types: Cigarettes ??? Start date: 1965 Smokeless Tobacco Never Used Substance and Sexual Activity Alcohol Use Not on file Substance and Sexual Activity Drug Use Not on file Family History Problem Relation Age of Onset ??? Anesthesia problems Neg Hx PAT Physical Exam Airway Exam: Mallampati: III TM distance: 3 Upper lip bite test class: 2 Cardiovascular Exam: Rate: regular Rhythm: irregular Negative for peripheral edema Pulmonary Exam: LCTA, bilat Decreased Dental Exam: Appears intact Skin Exam: Skin is warm and dry. Abdominal exam: Abdomen is soft. Bowel sounds are present. Current state: Patient's current state is cooperative and interactive. Vitals: 10/05/21 0945 10/05/21 0949 BP: 140/82 126/80 Pulse: 76 SpO2: 100% Relevant diagnostics: ECG(s): 10/05/21 Atrial fibrillation. 67 bpm. Echocardiogram(s): 01/27/2021 Conclusions: Normal left ventricular size. Definity contrast agent used to visually enhance endocardial wall motion and contractility. Lot Number: [id number]. Mild concentric left ventricular hypertrophy. Severe global left ventricular systolic dysfunction. Indeterminate diastolic function. Ejection fraction is visually estimated at 30 %. There is mild enlargement of left atrium. Normal appearance of the mitral valve. Mild mitral annular calcification. Mild to moderate mitral valve regurgitation. Mild aortic stenosis. Peak gradient of 10.0 mmHg. Mean gradient of 6.0 mmHg. Valve area of 1.63 cm2. Aortic cusps appear mildly calcified. Aortic cusps appear mildly restricted. Trileaflet aortic valve. Mild aortic valve regurgitation. Normal appearance of the tricuspid valve. Mild pulmonary hypertension based on right ventricular systolic pressure. Estimated peak RVSP is 40 mmHg. Mild tricuspid regurgitation. Probable atrial flutter with variable AV block. Technically difficult study with limited views. Stress test(s): N/A Cardiac catheterization(s): 05/22/2021 ([facility]) PFT(s): 02/20/2020 ([facility]- [facility]) FVC 81% FEV1 54% FEV1/FVC 45% Vascular studies: CT Chest 09/28/21 IMPRESSION: 1. Severe centrilobular [...] can be reevaluated on the next follow-up. CTA Abdominal Aorta and Bilat iliofem 10/01/21 IMPRESSION: ?? 1. Right lower extremity: There is three-vessel runoff to the right ankle, with multifocal mild-moderate narrowing throughout the right lower extremity, with a single focus of severe narrowing at the distal right superficial femoral artery. ?? 2. Left lower extremity: Multifocal predominant mild narrowing throughout the left lower extremity with the exception of focal moderate stenosis of the superficial femoral artery with three-vessel runoff at the ankle. The left dorsalis pedis artery is diminutive. 3. 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 ?? 4 Right heart enlargement with reflux of contrast into the hepatic veins, compatible with right heart failure. Other: CT Neck 09/28/21 IMPRESSION: 1. No abnormally enhancing soft tissue identified in the floor of the mouth. No cervical lymphadenopathy. 2. Skin soft tissue thickening with exophytic appearing lesions in the right supraorbital region and in the neck soft tissues at the level of C1. These likely represent skin tags, however recommend direct correlation with visualization. PT: No results found for requested labs within last 720 hours. INR: No results found for requested labs within last 720 hours. APTT: No results found for requested labs within last 720 hours. Hgb A1C: No results found for requested labs within last 720 hours. CBC RBC: No results found for requested labs within last 720 hours. RDW: No results found for requested labs within last 720 hours. MCHC: No results found for requested labs within last 720 hours. MCH: No results found for requested labs within last 720 hours. MCV: No results found for requested labs within last 720 hours. Hct: No results found for requested labs within last 720 hours. Hgb: No results found for requested labs within last 720 hours. WBC: No results found for requested labs within last 720 hours. MPV: No results found for requested labs within last 720 hours. Platelets: No results found for requested labs within last 720 hours. RDW CV: No results found for requested labs within last 720 hours. RDW Sd: No results found for requested labs within last 720 hours. BMP Glucose: No results found for requested labs within last 720 hours. Calcium: No results found for requested labs within last 720 hours. Sodium: No results found for requested labs within last 720 hours. Potassium: No results found for requested labs within last 720 hours. CO2: No results found for requested labs within last 720 hours. Chloride: No results found for requested labs within last 720 hours. BUN: No results found for requested labs within last 720 hours. Creatinine: 09/28/2021: 1.1 mg/dL STOP-Bang Total Score: 4 Dahlia index score: 95 AD8 Dementia Score: 0 Short Blessed Total Score: 0 MAKER HELPER MAKER HELPER MAKER HELPER MAKER HELPER MAKER HELPER MAKER HELPER MAKER HELPER MAKER HELPER documented in this encounter Miscellaneous Notes * Op Note - Moose Singleton MD - 10/09/2021 9:00 AM CST NAME: Chilo Ji DATE: 10/09/21 PREOPERATIVE DIAGNOSIS Alveolar ridge and FOM/ventral tongue mass POSTOPERATIVE DIAGNOSIS Alveolar ridge and FOM/ventral tongue mass suspicious for focally invasive SCC NAME OF PROCEDURE Composite resection (ventral tongue, FOM, and marginal mandibulectomy) ANESTHESIA General endotracheal. COMPLICATIONS None. SPECIMENS Composite oral cavity resection + margins FINDINGS 1. No apparent synchronous tumors on direct laryngoscopy or esophagoscopy (see Dr Torres's note) 2. Intraoperative frozen margins on the resection were negative. DESCRIPTION OF PROCEDURE After identifying the patient in the preoperative holding area by name and date of , all questions were answered and consent was reviewed. The patient was brought to the operating room, placed supine on the operating room table, and general anesthesia was induced with a nasal intubation by theanesthesia team. Dr Torres proceeded with the DL and esophagoscopy as I was assisting with an emergency case. The patient was then prepped and draped in the usual sterile fashion including preparation of the arm. Given the equivocal pathology on frozen, we proceeded to resect the soft tissue around the mass with a 5-10 mm margin using Bovie on cut. This involved cuts along the alveolar ridge, FOM, and ventral tongue. We then carefully dissected down to the myelohyoid and removed the sublingual glands in this area as well as the deeper soft tissues. Care was taken to avoid the lingual nerve and branchesof the hypoglossal. We then completed our dissection and set it for frozen which returned suspicious for a focus of invasive SCC. I discussed the case with Dr Beltran and Dr Cunningham and our consensus was that given the close margin near the teeth a definitive negative resection was warranted. We therefore removed the left lateral and central incisors and the right central incisor. We then used the reciprocating saw to make cuts to just below the socket, leaving a generous amount of mandibular height remaining. This was sent for permanent pathology and completed our resection. We then closed a small dehiscence within the myelohyoid with horizontal mattress 3-0 vicryl. Thereafter, we tacked the remaining FOM soft tissue over this closure with another vicryl which did not tether or limit the tongue. We obtained hemostasis and sent margins which returned clear. I was present and scrubbed for all steele and critical portions of the procedure and immediately available for the remainder of the procedure. Dr. Juany Torres was immediately available for the entire procedure. Moose Singleton MD PhD Network Systems Analyst Attending, Head and Neck Surgery Department of Otolaryngology [facility] [phone] (Clinical nurse Janneth Whitaker RN) Pager [phone] MAKER HELPER * Op Note - John Torres MD - 10/09/2021 9:00 AM CST DATE OF SURGERY: 10/09/2021 PREOPERATIVE DIAGNOSIS: 1. Anterior floor of mouth lesion POSTOPERATIVE DIAGNOSIS: 1. Anterior floor of mouth lesion PROCEDURE PERFORMED: 1. Direct laryngoscopy with biopsy of anterior floor of mouth lesion 2. Flexible esophagoscopy 3. Composite resection (ventral tongue, FOM, and marginal mandibulectomy)- performed and dictated by Dr. Singleton ATTENDING SURGEON: John Torres MD ARTIST MANNEQUIN COLORING SURGEON: Surgeon(s): Aleksandar Bragg MD ANESTHESIA: General EBL: Minimal Finding: Anterior floor of mouth/mandibular lingual gingiva lesion No esophageal lesions COMPLICATIONS: None SPECIMEN: 1. Floor of mouth OPERATIVE NOTE: This is a 71 y.o. male who with anterior floor of mouth lesion that involved the lingual gingiva ofthe mandible. There was concern for malignancy and therefore above procedures were discussed with patient who wanted to proceed. Risks benefits and alternatives were discussed and he had full understandings of the risks/complications. The patient was taken to the operating room and placed supine on the operating table. Anesthesia was established by the anesthesia service. The patient was then turned 180 and handed to the surgical service. The patient was then prepped and draped in the normal fashion. After final timeout verification, the procedure began. Upper dentitions were protected with a dental guard. On examination of the mouth, a lesion was noted on anterior floor of mouth that involved the lingual gingiva of the mandible. A laryngoscope was inserted into the mouth with exteremly caution not to injure tooth/gum/tongue. No abnormal findings expect for the floor of mouth lesion were found. The laryngoscope was then removed. A flexible esophagoscope was inserted. The esophageal inlet was visualized and the scope was inserted atraumatically into the esophageus. The scope was advanced forward until it was in stomach. The stomach was suctioned. The scope was pulled back slowly and into the esophagus. While pulling out the scope, the esophagus was examined and no concerning lesions werenoticed. At this time, the anterior floor of mouth was biopsied and sent for frozen section. The patient was then handed to Dr. Singleton for the rest of the procedure. At the end of the case, all counts were correct. Attending surgeon attestation: I was present and directly participated for the entirety of the surgery. MAKER HELPER * Brief Op Note - Aleksandar Bragg MD - 10/09/2021 9:00 AM CST Operative Progress Note Surgical Team: Surgeon(s) and Role: * Moose Singleton MD - Primary * Aleksandar Bragg MD - Resident - Assisting * John Torres MD - Fellow Anesthesiologist: Mahin Cruz MD INSULATION FOREMAN: Nelly Trujillo CRNA; Yemi London CRNA Senior Interior Designer: Selam Maxwell RN; Corina Mcdonnell RN Senior Interior Designer Relief: Kwaku Marks RN; Miguelina Aponte RN Scrub: Gay Gary RN; Breanne Mullins, KIA; Ellen Poe DATE OF SURGERY : 10/09/2021 Preoperative Diagnosis: Pre-op Diagnosis * 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) (HCC) [C04.9] Postoperative Diagnosis: Post-op Diagnosis * 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) (HCC) [C04.9] Procedure(s): Procedure(s) (LRB): FLOOR OF MOUTH RESECTION, PARTIAL MANDIBULECTOMY, DENTAL EXTRACTIONS (N/A) DIRECT LARYNGOSCOPY, FLEXIBLE ESOPHAGOSCOPY (N/A) Operative Findings: Left anterior mandibular lesion, wide local excision, partial closure with remaining left to heal by secondary intention Rim mandibulectomy Dental extractions Estimated Blood Loss: 25 mL Intraoperative Fluids: 1500 mls Specimens: ID Type Source Tests Collected by Time A : Floor of Mouth Mass Tissue Soft tissue biopsy SURGICAL PATHOLOGY Moose Singleton MD 10/09/2021 0901 B : Midline floor of mouth and alveolar ridge resection, stitch joe posterior Tissue Soft tissue biopsy SURGICAL PATHOLOGY Moose Singleton MD 10/09/2021 0942 C : ANTERIOR MARGIN Tissue Soft tissue biopsy SURGICAL PATHOLOGY Moose Singleton MD 10/09/2021 1124 D : RIGHT FLOOR OF MOUTH MARGIN Tissue Soft tissue biopsy SURGICAL PATHOLOGY Moose Signleton MD 10/09/2021 1124 E : LEFT FLOOR OF MOUTH MARGIN Tissue Soft tissue biopsy SURGICAL PATHOLOGY Moose Singleton MD 10/09/2021 1125 F : RIGHT ALVEOLAR RIDGE MARGIN Tissue Soft tissue biopsy SURGICAL PATHOLOGY Moose Singleton MD 10/09/2021 1125 G : LEFT ALVEOLAR RIDGE MARGIN Tissue Soft tissue biopsy SURGICAL PATHOLOGY Moose Singleton MD 10/09/2021 1125 H : DEEP MARGIN Tissue Soft tissue biopsy SURGICAL PATHOLOGY Moose Singleton MD 10/09/2021 1125 I : COMPOSITE ORAL RESECTION INK HOFFMAN POSTERIOR Tissue Mandible/maxilla, excision SURGICAL PATHOLOGY Moose Singleton MD 10/09/2021 1145 J : TEETH Other Teeth (Tooth) GROSS/HARDWARE Moose Singleton MD 10/09/2021 1146 Implants: Nothing was implanted during the procedure Blood/Blood Products Transfused: 0 mls Complications: None Condition on Discharge from the operating room was stable Aleksandar Bragg MD Date: 10/09/2021 Time: 12:38 PM TEACHING ATTESTATION : I was present and directly participated in the entire procedure (including opening and closing). Cosigned by Moose Singleton MD at 10/09/2021 12:50 PM GAS MAKER HELPER MAKER HELPER MAKER HELPER documented in this encounter Plan of Treatment Scheduled Orders Name Type Priority Associated Diagnoses Orde r Schedule Gross/Hardware Pathology and Cytology Timed FOM (cancer of floor of mouth) ([facility]/HCC) ([facility]) Release Upon Ordering for 1 Occurrences starting 10/09/2021 documented as of this encounter Procedures Procedure Name Priority Date/Time Associated Diagnosis Comments POCT GLUCOSE DEVICE Routine 10/09/2021 1 :19 PM GAS MAKER HELPER EGFR Routine 10/09/2021 1:05 PM GAS MAKER HELPER DIFFERENTIAL AUTO Routine 10/09/2021 1:0 5 PM GAS MAKER HELPER CBC WITH AUTO DIFFERENTIAL Routine 10/09/2021 1:05 PM GAS MAKER HELPER PHOSPHORUS Routine 10/09/2021 1:05 PM GAS MAKER HELPER MAGNESIUM Routine 10/09/2021 1:05 PM GAS MAKER HELPER BASIC METABOLIC PANEL Routine 10/09/2021 1:05 PM GAS MAKER HELPER POC BLOOD GAS AND CHEMISTRIES, ARTERIAL Routine 10/09/2021 10:00 AM GAS MAKER HELPER SURGICAL PATHOLOGY Routine 10/09/2021 9: 01 AM GAS MAKER HELPER 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 Haydee Aviles to run past 7 pm via E-mail. (DM)10/01: E-mail sent, waiting for permission to run past 7pm. (DM)09/24: Case moved to 10/09 from 10/13 per [place] via phone call. (DM)09/22: Missing DPC, message sent to resource nurse. 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 Haydee Aviles to run past 7 pm via E-mail. (DM)10/01: E-mail sent, waiting for permission to run past 7pm. (DM)09/24: Case moved to 10/09 from 10/13 per [place] via phone call. (DM)09/22: Missing DPC, message sent to resource nurse. (DM) B CHECK SAMPLE STAT 10/09/2021 6:15 AM GAS MAKER HELPER documented in this encounter Results * POCT glucose (10/09/2021 1:19 PM GAS MAKER HELPER) Glucose, POC 131 70 - 199 mg/dL [facility] Blood 10/09/2021 1:19 PM GAS MAKER HELPER 10/09/2021 1:19 PM GAS MAKER HELPER Moose Singleton MD LAB POCT ORDERABLES - DEVICE Final Result [facility] [address] Department [place] [address] * (ABNORMAL) eGFR (10/09/2021 1:05 PM GAS MAKER HELPER) eGFR 71(L) 90 - 130 mL/min/1. 73 m2 [facility] Comment: Interpretive Data Reference Interval Normal ?>/= [...] interpretive data was last reviewed 2021. Blood 10/09/2021 1:05 PM GAS MAKER HELPER 10/09/2021 1:45 PM GAS MAKER HELPER us Moose Singleton MD LAB BLOOD ORDERABLES F inal Result [facility] [address] Department [place] [address] * (ABNORMAL) Differential, auto (10/09/2021 1:05 PM GAS MAKER HELPER) Neutrophil abs 9.9(H) 1.7 - 6.5 K/cumm [facility] Imm gran abs 0.1 0.0 - 0.1 K/cumm [facility] Lymphocyte abs 0.9 0.8 - 3.3 K/cumm [facility] Monocyte abs 0.1(L) 0.2 - 0.8 K/cumm [facility] Eosinophil abs 0.1 0.0 - 0.5 K/cumm [facility] Basophil abs 0.1 0.0 - 0.1 K/cumm [facility] Neutrophil pct 89.8 % [facility] Comment: Confirmed by smear review Interpretive Data Percent cell count reference ranges are not reported, since discordance with absolute values may lead to misinterpretation of CBC data. Current Interpretive Data was last revised on 2017. Imm gran pct 0.5 % [facility] Comment: Interpretive Data Percent cell count reference ranges are not reported, since discordance with absolute values may lead to misinterpretation of CBC data. Current Interpretive Data was last revised on 2017. Lymphocyte pct 7.8 % [facility] Comment: Interpretive Data Percent cell count reference ranges are not reported, since discordance with absolute values may lead to misinterpretation of CBC data. Current Interpretive Data was last revised on 2017. Monocyte pct 0.7 % [facility] Comment: Interpretive Data Percent cell count reference ranges are not reported, since discordance with absolute values may lead to misinterpretation of CBC data. Current Interpretive Data was last revised on 2017. Eosinophil pct 0.6 % [facility] Comment: Interpretive Data Percent cell count reference ranges are not reported, since discordance with absolute values may lead to misinterpretation of CBC data. Current Interpretive Data was last revised on 2017. Basophil pct 0.6 % [facility] Comment: Interpretive Data Percent cell count reference ranges are not reported, since discordance with absolute values may lead to misinterpretation of CBC data. Current Interpretive Data was last revised on 2017. Blood 10/09/2021 1:05 PM GAS MAKER HELPER 10/09/2021 1:43 PM GAS MAKER HELPER Moose Singleton MD LAB BLOOD ORDERABLES F inal Result [facility] [address] Department [place] [address] * (ABNORMAL) CBC with auto differential (10/09/2021 1:05 PM GAS MAKER HELPER) WBC 11.1(H) 3.8 - 9.9 K/cumm [facility] Hgb 14.0 13.0 - 17.5 g/dL [facility] Hct 42.7 38.9 - 50.3 % [facility] Plt 144(L) 150 - 400 K/cumm [facility] Comment:No clot detected in sample. MPV 10.5 9.1 - 12.3 fL [facility] RBC 4.75 4.30 - 5.80 M/cumm [facility] MCV 89.9 81.3 - 96.4 fL [facility] MCH 29.5 27.1 - 33.3 pg [facility] MCHC 32.8 32.3 - 35.7 g/dL [facility] RDW CV 13.0 11.1 - 14.9 % [facility] RDW SD 43.0 35.7 - 48.1 fL [facility] NRBC abs 0.00 0.00 - 0.01 K/cumm [facility] Blood 10/09/2021 1:05 PM GAS MAKER HELPER 10/09/2021 1:43 PM GAS MAKER HELPER Moose Singleton MD LAB BLOOD ORDERABLES F inal Result Performing Organization Address City/[facility] [place] [address] * (ABNORMAL) Phosphorus (10/09/2021 1:05 PM GAS MAKER HELPER) [facility] Phosphorus, pl 1.6(L) 2.3 - 4.5 mg/dL [facility] Blood 10/09/2021 1:05 PM GAS MAKER HELPER 10/09/2021 1:43 PM GAS MAKER HELPER Moose Singleton MD LAB BLOOD ORDERABLES F inal Result Performing Organization Address [facility] de Phone Number [facility] [place] [address] * Magnesium (10/09/2021 1:05 PM GAS MAKER HELPER) [facility] Magnesium 1.4 1.4 - 2.5 mg/dL [facility] Blood 10/09/2021 1:05 PM GAS MAKER HELPER 10/09/2021 1:43 PM GAS MAKER HELPER Moose Singleton MD LAB BLOOD ORDERABLES F inal Result Performing Organization Address City/[facility] Co de Phone Number [facility] [place] [address] * Basic metabolic panel (10/09/2021 1:05 PM GAS MAKER HELPER) [facility] Sodium 139 135 - 145 mmol/L [facility] Potassium, pl 4.2 3.3 - 4.9 mmol/L [facility] Chloride 103 97 - 110 mmol/L [facility] CO2 27 22 - 32 mmol/L [facility] Anion gap 9 2 - 15 mmol/L [facility] BUN 18 8 - 25 mg/dL [facility] Creatinine 1.12 0.80 - 1.30 mg/dL [facility] Glucose 160 70 - 199 mg/dL [facility] Comment: Interpretive Data Fasting glucose >/= 126 [...] interpretive data was last revised 2017. Calcium 9.0 8.5 - 10.3 mg/dL [facility] Blood 10/09/2021 1:05 PM GAS MAKER HELPER 10/09/2021 1:43 PM GAS MAKER HELPER us Moose Singleton MD LAB BLOOD ORDERABLES F inal Result [facility] [address] Department [place] [address] * (ABNORMAL) POC Blood Gas and Chemistries, Arterial - (10/09/2021 10:00 AM GAS MAKER HELPER) pH, Art POC 7.36 7.35 - 7.45 [facility] pCO2, Art POC 52(H) 35 - 45 mmHg [facility] pO2, Art POC 221(H) 83 - 108 mmHg [facility] Na, POC 135 135 - 145 mmol/L [facility] K POC 4.8 3.3 - 4.9 mmol/L [facility] Comment: Interpretive Data Unable to assess hemolysis. ??Invitro hemolysis causes falsely elevated potassium. Current Interpretive Data was last revised on 2020. Cl, POC 102 97 - 110 mmol/L [facility] Ionized Ca, POC 4.70 4.50 - 5.10 mg/dL [facility] Glucose, POC 125 70 - 199 mg/dL [facility] Lactate, POC 0.9 0.7 - 2.2 mmol/L [facility] SO2 (luisa) arterial 100(H) 90 - 95 % [facility] Base excess, POC 2.8 mmol/L [facility] HCO3, Art POC 29 20 - 30 mmol/L [facility] Hct, POC 42.0 41.4 - 51.6 % [facility] O2 Sat, Art POC (Calc) 100 % [facility] Total Hb, POC 13.9 13.8 - 17.2 g/dL [facility] Blood 10/09/2021 10:0 0 AM GAS MAKER HELPER 10/09/2021 10:00 AM GAS MAKER HELPER us Moose Singleton MD LAB POCT ORDERABLES - DEVICE Final Result [facility] Department [place] [address] * Surgical pathology (10/09/2021 9:01 AM GAS MAKER HELPER) Tissue (Soft tissue biopsy) 10/09/2021 9:01 AM GAS MAKER HELPER Tissue (Soft tissue biopsy) 10/09/2021 9:42 AM GAS MAKER HELPER Comment:FROZEN Tissue (Soft tissue biopsy) 10/09/2021 11:24 AM GAS MAKER HELPER Comment:FROZEN Tissue (Soft tissue biopsy) 10/09/2021 11:24 AM GAS MAKER HELPER Comment:FROZEN Tissue (Soft tissue biopsy) 10/09/2021 11:25 AM GAS MAKER HELPER Comment:FROZEN Tissue (Soft tissue biopsy) 10/09/2021 11:25 AM GAS MAKER HELPER Comment:FROZEN Tissue (Soft tissue biopsy) 10/09/2021 11:25 AM GAS MAKER HELPER Comment:FROZEN Tissue (Soft tissue biopsy) 10/09/2021 11:25 AM GAS MAKER HELPER Comment:FROZEN Tissue (Mandible/maxilla , excision) 10/09/2021 11:45 AM GAS MAKER HELPER Narrative PATHOLOGY [facility] - 10/19/2021 1:45 PM CDT EPIC results best viewed via link to PDF [facility] [place] [address] Note to Patients: This report may contain a detailed description of human tissue sent by a health care provider to the laboratory for pathologic evaluation. The content of this report is essential for diagnosis and may provide important critical findings. This information may be unfamiliar to patients to review without a medical professional present. It is advised that the patient review this report in the presence of a health care provider who can answer questions and explain the details. SURGICAL PATHOLOGY REPORT FINAL Patient Name: ?? CHILO JI Gender: ??M : ??1950 (Age: 71) Address: ??[address] [place] [address] ??[id number] Hospital #: ??[id number] Taken:10/09/2021 Received:10/09/2021 Reported: 10/19/2021 Patient Type: [facility] Inpatient ?? Service: Otolaryngology Location: [address] Physician(s): ??Moose Singleton M.D., PH.D. Aleksandar Bragg M.D. Liliana May M.D. Diagnosis: A. ??Oral cavity, floor of mouth mass, biopsy (AFR1) ? - Dysplastic verrucous squamous proliferation - Organisms morphologically consistent with Allison B. ??Oral cavity, midline floor of mouth and alveolar ridge, resection (including BFR1) ? 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 ??Oral cavity, anterior margin, excision (CFR1) ? - No evidence of malignancy D. ??Oral cavity, right floor of mouth margin, excision (DFR1) ? - No evidence of malignancy E. ??Oral cavity, left floor of mouth margin, excision (EFR1) ? - No evidence of malignancy F. ??Oral cavity, right alveolar ridge margin, excision (FFR1) ? - Denuded mucosa with no evidence of malignancy G. ??Oral cavity, left alveolar ridge margin, excision (GFR1) ? - No evidence of malignancy H. ??Oral cavity, deep margin, excision (HFR1) ? - No evidence of malignancy I. ??Oral cavity, composite, resection ? - No evidence of malignancy J. ??Teeth, extraction ? - Teeth (gross examination only) kxr/10/16/2021 07:54 By this signature, I attest that the above diagnosis is based upon my personal examination of the slides(and/or other material indicated in the diagnosis). Nasra Romano M.D. Report Electronically Reviewed and Signed Out By ??Nasra Romano M.D. 10/19/2021 13:45:49 Intraoperative Consultation: Gross Consultation Part A: Multiple fragments of white-pink soft tissue measuring 1.1 x 0.8 x 0.4 cm in aggregate, frozen en toto as AFR1. By Salomón Lopes M.D., Nora Mota M.D. Part B: Specimen is a 1.8 x 1.5 x 0.6 cm disc of pink-miller mucosa with a central 0.9 x 0.8 x 0.3 cm exophytic white mass. The mass is oriented with a suture marking the superior margin. The stick/superior margin is re-oriented as the 12 o'clock margin. The mass is located 0.1 cm from the 5-6-7 o'clock margins. The 12-3-6 o'clock margin is inked blue. The 6-8-12 o'clock margin is inked green. The deep margin is inked yellow. Two full-thickness cross sections are frozen as BFR1. Frozen Section Diagnosis AFR1: Floor of mouth mass - Superficial fragments of severe squamous dysplasia/carcinoma in-situ - Definitive invasion absent By Salomón Lopes M.D., Nora Mota M.D. BFR1: Midline floor of mouth and alveolar ridge resection, stitch joe superior - At least squamous cell carcinoma in-situ with focus suspicious for invasion (less than 1 mm) on manufacturers representative sections By Salomón Lopes M.D., Nora Mota M.D. CFR1: Anterior margin - No evidence of malignancy By Salomónhubert Lopes M.D., Hannah R. Krigman, M.D. DFR1: Right floor of mouth margin - No evidence of malignancy By Salomón Lopes M.D., Hannah R. Krigman, M.D. EFR1: Left floor of mouth margin - No evidence of malignancy By Salomón Lopes M.D., Hannah R. Krigman, M.D. FFR1: Right alveolar ridge margin - No evidence of malignancy - Extensive epithelial denudement By Salomón Lopes M.D., Hannah R. Krigman, M.D. GFR1: Left alveolar ridge margin - No evidence of malignancy By Salomón Lopes M.D., Hannah R. Krigman, M.D. HFR1: Deep Margin: - No evidence of malignancy By Salomón Lopes M.D., Hannah R. Krigman, M.D. I personally examined the relevant preparation(s) or a microscopic image of the relevant preparation(s) for the specimen(s) while the surgical procedure was still underway and rendered or confirmed the diagnosis(es) Nora Mota M.D. (A - B - C - D - E - F - G - H) Microscopic Description and Comment: Microscopic examination substantiates the above cited diagnosis. 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 Operative procedure: Floor of mouth resection with partial mandibulectomy and dental extractions. Specimen(s) Received: A: Floor of mouth mass B: Midline floor of mouth and alveolar ridge resection, stitch joe superior C: Anterior margin D: Right floor of mouth margin E: Left floor of mouth margin F: Right alveolar ridge margin G: Left alveolar ridge margin H: Deep Margin I: Composite oral resection ink hoffman posterior J: Teeth Gross Description: The specimens are received in ten formalin filled containers each labeled with the patient's identifiers. ? A. ??Labeled floor of mouth mass is a white cassette labeled AFR1 containing three fragments of miller-white friable soft tissue as described below in the intraoperative diagnosis section. ??No additional tissue is present in the container. ??Jar 0. B. ??Labeled midline floor of mouth and alveolar ridge resection, stitch hoffman posterior is a white cassette labeled BFR1 containing fragments of previously inked sectioned and frozen mucosa and soft tissue. ??The remainder of the specimen is present in the container as described below in the intraoperative diagnosis section. The specimen is further sectioned along the axis of the previous sections. ??Labeled B2 - 12 o'clock tip; radially sectioned; B3 - center of specimen; B4 - 6 o'clock tip; radially sectioned. ??Jar 0. ?? C. ??Labeled anterior margin is a white cassette labeled CFR1 containing previously frozen and wrapped miller-yellow soft tissue measuring 0.5 x 0.3 x 0.1 cm. ??No additional tissue is present in the container. ??Jar 0. D. ??Labeled right floor of mouth margin is a white cassette labeled DFR1 containing previously frozen and wrapped miller-yellow soft tissue fragments measuring 0.5 x 0.3 x 0.1 cm in aggregate and range from 0.1 to 0.3 cm in greatest dimension. ??No additional tissue is present in the container. ??Jar 0. E. ??Labeled left floor of mouth margin is a white cassette labeled EFR1 containing previously frozen and wrapped miller-yellow soft tissue measuring 0.5 x 0.3 x 0.1 cm. ??No additional tissue is present in the container. ??Jar 0. F. ??Labeled right alveolar ridge margin is a white cassette labeled FFR1 containing previously frozen and wrapped miller-yellow soft tissue measuring 0.3 x 0.2 x 0.1 cm. ??No additional tissue is present in the container. ??Jar 0. G. ??Labeled left alveolar ridge margin is a white cassette labeled GFR1 containing previously frozen and wrapped miller-yellow soft tissue measuring 0.7 x 0.1 x 0.1 cm. ??No additional tissue is present in the container. ??Jar 0. H. ??Labeled deep margin is a white cassette labeled HFR1 containing previously frozen and wrapped miller-red soft tissue measuring 0.5 x 0.4 x 0.1 cm. ??No additional tissue is present in the container. ??Jar 0. I. ??Labeled Composite oral resection ink hoffman posterior is a 1.6 x 1.2 x 0.6 cm fragment of mandibular bone with attached soft tissue and overlying mucosal surface. ??The posterior side has previously been inked blue. ??The anterior side is inked orange. The right and left mucosal margins are shaved. ??Additionally in the container is a detached 0.5 x 0.3 x 0.2 cm brown soft tissue fragment. ??Labeled I1 - right mucosal margin, wrapped; I2 - left mucosal margin, wrapped; I3 - right bone margin, acid decalcification; I4 - left bone margin, wrapped, acid decalcification; I5 - remainder of specimen, serially sectioned, acid decalcification. ??Jar 0. ? J. ??Labeled teeth are three yellowed teeth. ??Gross only. Jar 1. axxm/10/12/2021 11:15 Gross Resident:Morena Andrade M.D., PhD PA(s): [facility] ? 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 Tumor Site: ?Oral ? [...] pNX: ??Regional lymph nodes cannot be assessed ? The pathologic stage assigned here should be regarded as provisional, and may change after integration of clinical data not provided with this specimen. CAP VERSION: LipOralCavity 4.0.0.1 By this signature, I attest that the above diagnosis is based upon my personal examination of the slides(and/or other material). Addenda/Procedures The performance characteristics of some immunohistochemical stains, fluorescence in-situ hybridization tests and immunophenotyping by flow cytometry cited in this report (if any) were determined by the Surgical Pathology and Flow Cytometry Departments at [facility] as part of an ongoing water quality specialist program and in compliance with federally mandated regulations drawn from the Clinical Laboratory Improvement Act of 1988 (CLIA '88). ??Some of these tests rely on the use of analyte specific reagents and are subject to specific labeling requirements by the US Food and Drug Administration. ??Such diagnostic tests may only be performed in a facility that is certified by the Department of Health and Human Services as a high complexity laboratory under CLIA '88. ??The FDA has determined that such clearance or approval is not necessary. ??This test is used for clinical purposes. ??It should not be regarded as investigational or for research. ??Nevertheless, federal rules concerning the medical use of analyte specific reagents require that the following disclaimer be attached to the report: This test was developed and its performance characteristics determined by the Surgical Pathology and Flow Cytometry Departments of [facility]. ??It has not been cleared or approved by the U. S. Food and Drug Administration. IMAGES AND SCANNED DOCUMENTS, IF INCLUDED, ONLY VIEWABLE IN PDF VERSION OF REPORT Moose Singleton MD LAB PATHOLOGY ORDERABL ES Final Result PATHOLOGY [facility] [address] Floor [place], [place] [phone] * Check Sample (10/09/2021 6:15 AM GAS MAKER HELPER) ABO Rh A Positive [facility] OTHER 10/09/2021 6:15 AM GAS MAKER HELPER 10/09/2021 6:38 AM GAS MAKER HELPER Result [facility] Cornelio Singleton MD LAB BLOOD ORDERABLES F inal Result [facility] [address] [place] [address] documented in this encounter Visit Diagnoses Diagnosis 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)- Primary Malignant neoplasm of floor of mouth, part unspecified 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) Malignant neoplasm of floor of mouth, part unspecified documented in this encounter Admitting Diagnoses Diagnosis 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) Malignant neoplasm of floor of mouth, part unspecified documented in this encounter Administered Medications Inactive Administered Medications - up to 3 most recent administrations Medication Order MAR Action Action Date Dose Rate Site acetaminophen (TYLENOL) 32 mg/mL oral solution 650 mg 650 mg, oral, Every 4 hours PRN, 1st line for pain, Starting on Tue10/09/21 at 1811, Indications: PainIndications:Pain ampicillin-sulbactam (UNASYN) 3 g/110 mL in sodium chloride 0.9% (premix) 3 g 3 g, intravenous, Administer over 30 Minutes, Every 6 hours scheduled, First dose on Tue10/09/21 at 1715, Indications: Upper Respiratory/HEENT InfectionIndications:Upper Respiratory/HEENT Infection New Bag 10/11/2021 12:04 PM GAS MAKER HELPER 3 g New Bag 10/11/2021 5:10 AM GAS MAKER HELPER 3 g New Bag 10/11/2021 12:04 AM GAS MAKER HELPER 3 g enoxaparin (LOVENOX) syringe 40 mg 40 mg, subcutaneous, Daily (for enoxaparin), First dose on Tue10/09/21 at 2100, Indications: Deep Vein Thrombosis PreventionIndications:Deep Vein Thrombosis Prevention Given 10/10/2021 9:06 PM GAS MAKER HELPER 40 mg Left Lower Abdomen Given 10/09/2021 9:35 PM GAS MAKER HELPER 40 mg Le ft Lower Abdomen yoaxgygyflv-giaybozxh-odqdwqdu (TRELEGY ELLIPTA) 100-62.5-25 mcg inhaler 1 puff 1 puff, inhalation, Daily (correspondence specialist), First dose on Tue10/09/21 at 1715, Rinse mouth with water after use. Do not swallow. Given 10/11/2021 8:48 AM GAS MAKER HELPER 1 puff Given 10/10/2021 9:18 AM GAS MAKER HELPER 1 puff heparin 5,000 units in sodium chloride 0.9% 250 mL 0-250 mL, irrigation, Once, On Tue10/09/21 at 0800, For 1 dose, Intra-Op Given 10/09/2021 11:09 AM GAS MAKER HELPER 250 mL Surgical Site lidocaine-EPINEPHrine (XYLOCAINE with EPI) 1 %-1:100,000 injection As needed, Starting on Tue10/09/21 at 1106, Intra-Op, Indications: Administration of Local AnesthesiaIndications:Administrati on of Local Anesthesia Given 10/09/2021 11:06 AM GAS MAKER HELPER 8 mL Surgical Site oxyCODONE (ROXICODONE) 1 mg/mL oral solution 5 mg 5 mg, oral, Every 4 hours PRN, 2nd line for pain, Starting on Tue10/09/21 at 1811, May administer 1 hour after 1st line agent for uncontrolled or increasing pain., Indications: PainIndications:Pain pantoprazole (PROTONIX) 4 mg/mL injection 40 mg 40 mg, intravenous, Administer over 2 Minutes, Daily, First dose on Tue10/09/21 at 1845, For IV Push administration for adults- 40 mg vial: add 10 mL of sodium chloride 0.9% to achieve a final concentration of 4 mg/mL, Indications: Treatment of Non-Bleeding Gastric DisorderIndications:Treatment of Non-Bleeding Gastric Disorder Given 10/11/2021 8:48 AM GAS MAKER HELPER 40 mg Given 10/10/2021 9:21 AM GAS MAKER HELPER 40 mg papaverine injection As needed, Starting on Tue10/09/21 at 1108, Intra-Op Given 10/09/2021 11:08 AM GAS MAKER HELPER 120 mg Surgical Site sodium chloride 0.9% flush 0.5-20 mL 0.5-20 mL, intra-catheter, Every 8 hours scheduled, First dose on Tue10/09/21 at 1715, Flush volume based on line type and size. Given 10/10/2021 2:12 PM GAS MAKER HELPER 10 mL Given 10/10/2021 5:22 AM GAS MAKER HELPER 10 mL Given 10/09/2021 9:39 PM GAS MAKER HELPER 10 mL sodium chloride 0.9% irrigation As needed, Starting on Tue10/09/21 at 1109, Intra-Op Given 10/09/2021 11:09 AM GAS MAKER HELPER 3,000 mL Surgical Site documented in this encounter Discontinued Medications Medication Sig Discontinue Reason Start Date End Da te metoprolol XL (TOPROL-XL) 50 mg extended release tabletIndications:for HR Take 50 mg by mouth every morning Stop Taking at Discharge 06/27/2021 10/11/2021 documented as of this encounter Active and Recently Administered Medications Times are shown in GAS MAKER HELPER. Scheduled Medication Order 10/09/2021 10/10/2021 10/11/2021 ampicillin-sulbactam (UNASYN) 3 g/110 mL in sodium chloride 0.9% (premix) 3 g (COMPLETED) 3 g, intravenous, Administer over 30 Minutes, Once, On Tue10/09/21 at 0645, For 1 dose, Intra-Op, Indications: Prophylaxis, Surgical 0850 (Given - Provider: Nelly Trujillo CRNA)1037 (Given - Provider: Nelly Trujillo CRNA) ampicillin-sulbactam (UNASYN) 3 g/110 mL in sodium chloride 0.9% (premix) 3 g 3 g, intravenous, Administer over 30 Minutes, Every 6 hours scheduled, First dose on Tue10/09/21 at 1715, Indications: Upper Respiratory/HEENT Infection 1814 (Not Given - Provider: Melinda Drew RN - Reason: Other)2330 (New Bag - Provider: Malcom Kat RN) 0519 (New Bag - Provider: Malcom Kat RN)1159 (New Bag - Provider: Rosita Andrade, KIA)1727 (New Bag - Provider: Rosita Andrade, RN) 0004 (New Bag - Provider: Malcom Kat RN)0510 (New Bag - Provider: Malcom Kat RN)1204 (New Bag - Provider: Rosita Andrade RN) dexAMETHasone (DECADRON) 4 mg/mL injection 10 mg 10 mg, intravenous, Administer over 2 Minutes, Every 8 hours scheduled, First dose on Tue10/09/21 at 1715, For 6 doses 1814 (Not Given - Provider: Melinda Drew RN - Reason: Other)213 (Given - Provider: Malcom Kat RN) 0519 (Given - Provider: Malcom Kat RN)1412 (Given - Provider: Rosita Andrade RN)210 (Given - Provider: Malcom Kat, RN) 0510 (Given - Provider: Malcom Kat RN) enoxaparin (LOVENOX) syringe 40 mg 40 mg, subcutaneous, Daily (for enoxaparin), First dose on Tue10/09/21 at 2100, Indications: Deep Vein Thrombosis Prevention 2134 (Given - Provider: Malcom Kat RN) 2105 (Given - Provider: Malcom Kat RN) txactbbmcdt-uvlibwdfd-heo anter (TRELEGY ELLIPTA) 100-62.5-25 mcg inhaler 1 puff 1 puff, inhalation, Daily (correspondence specialist), First dose on Tue10/09/21 at 1715, Rinse mouth with water after use. Do not swallow. 1814 (Not Given - Provider: Melinda Drew RN - Reason: Other) 0918 (Given - Provider: Rosita Andrade RN) 0848 (Given - Provider: Rosita Andrade RN) heparin 5,000 units in sodium chloride 0.9% 250 mL (COMPLETED) 0-250 mL, irrigation, Once, On Tue10/09/21 at 0800, For 1 dose, Intra-Op 0800 (Due)1109 (Given - Provider: Aleksandar Bragg MD) metoprolol XL (TOPROL-XL) extended release tablet 50 mg 50 mg, oral, Every morning, First dose on Tue10/10/21 at 0900, Tablets that are scored may be split, but do not crush, chew, dissolve, open or otherwise manipulate tablet/capsule., Indications: for HR 0900 (Not Given - Provider: Rosita Andrade RN - Reason: NPO) 0900 (Not Given - Provider: Rosita Andrade RN - Reason: Other - Comment: HR below 60) pantoprazole (PROTONIX) 4 mg/mL injection 40 mg 40 mg, intravenous, Administer over 2 Minutes, Daily, First dose on Tue10/09/21 at 1845, For IV Push administration for adults- 40 mg vial: add 10 mL of sodium chloride 0.9% to achieve a final concentration of 4 mg/mL, Indications: Treatment of Non-Bleeding Gastric Disorder 1814 (Not Given - Provider: Melinda Drew RN - Reason: Other) 09 (Given - Provider: Rosita Andrade RN) 0848 (Given - Provider: Rosita Andrade RN) sodium chloride 0.9% flush 0.5-20 mL 0.5-20 mL, intra-catheter, Every 8 hours scheduled, First dose on Tue10/09/21 at 1715, Flush volume based on line type and size. 1814 (Not Given - Provider: Melinda Drew RN - Reason: Other)2139 (Given - Provider: Malcom Kat RN) 0522 (Given - Provider: Malcom Kat RN)1412 (Given - Provider: Rosita Andrade RN)2304 (Not Given - Provider: Malcom Kat RN - Reason: IV Infusing) 0600 (Due)1400 (Due) tamsulosin (FLOMAX) extended release capsule 0.4 mg 0.4 mg, oral, Every morning, First dose on Tue10/10/21 at 0900, Do not crush, chew, cut, dissolve, open or otherwise manipulate tablet/capsule. 0900 (Not Given - Provider: Rosita Andrade RN - Reason: NPO) 0900 (Not Given - Provider: Rosiat Andrade RN - Reason: Other - Comment: voiding without difficulty) Continuous Medication Order 10/09/2021 10/10/2021 10/11/2021 Lactated Ringer's (LR) infusion (CANCELED) 30 mL/hr, intravenous, Continuous, Starting on Tue10/09/21 at 0645, Pre-Op 0624 (New Bag - Provider: Max Flower NP)0734 (Paused - Provider: Nelly Trujillo CRNA - Comment: Switch to gravity)0735 (Restarted - Provider: Nelly Trujillo CRNA)0820 (Rate/Dose Verify - Provider: Nelly Trujillo CRNA)1136 (Paused - Provider: Nelly Trujillo CRNA - Comment: Switch to gravity)1137 (Restarted - Provider: Nelly Trujillo CRNA)1346 (Due)1425 (Stopped - Provider: Corina Nina, RN) sodium chloride 0.9% infusion (CANCELED) 100 mL/hr, intravenous, Continuous, Starting on Tue10/09/21 at 1315 1425 (New Bag - Provider: Corina Nina, RN)202 (Canceled Entry - Provider: Malcom Kat RN) 0059 (New Bag - Provider: Malcom Kat RN)0125 (Rate/Dose Verify - Provider: Maclom Kat RN)0700 (Rate/Dose Verify - Provider: Rosita Andrade RN)0800 (Rate/Dose Verify - Provider: Rosita Andrade RN)0900 (Rate/Dose Verify - Provider: Rosita Andrade RN)1000 (Rate/Dose Verify - Provider: Rosita Andrade RN)1100 (Rate/Dose Verify - Provider: Rosita Andrade RN)1159 (New Bag - Provider: Rosita Andrade RN)1200 (Rate/Dose Verify - Provider: Rosita Andrade RN)1300 (Rate/Dose Verify - Provider: Rosita Andrade RN)1400 (Rate/Dose Verify - Provider: Rosita Andrade RN)1500 (Rate/Dose Verify - Provider: Rosita Andrade RN)1600 (Rate/Dose Verify - Provider: Rosita Andrade RN)1705 (Rate/Dose Verify - Provider: Rosita Andrade RN) 0004 (New Bag - Provider: Malcom Kat RN)0015 (Rate/Dose Verify - Provider: Malcom Kat RN)0615 (Rate/Dose Verify - Provider: Malcom Kat RN)0700 (Rate/Dose Verify - Provider: Rosita Andrade RN)0800 (Rate/Dose Verify - Provider: Rosita Andrade RN)0900 (Stopped - Provider: Rosita Andrade RN) PRN Medication Order 10/09/2021 10/10/2021 10/11/2021 acetaminophen (TYLENOL) 32 mg/mL oral solution 650 mg 650 mg, oral, Every 4 hours PRN, 1st line for pain, Starting on Tue10/09/21 at 1811, Indications: Pain acetaminophen (TYLENOL) tablet 650 mg (CANCELED) 650 mg, oral, Every 4 hours PRN, 1st line for pain, Starting on Tue10/09/21 at 1636, Indications: Pain 1701 (Given - Provider: Justyna Eid RN) albuterol HFA (PROVENTIL HFA,VENTOLIN HFA,PROAIR HFA) 90 mcg/actuation inhaler 2 puff 2 puff, inhalation, Every 4 hours PRN (correspondence specialist), wheezing, shortness of breath, Starting on Tue10/09/21 at 1636 HYDROmorphone (DILAUDID) injection 0.4 mg (CANCELED) 0.4 mg, intravenous, Administer over 2 Minutes, Every 10 min PRN, 1st line for pain, Starting on Tue10/09/21 at 1242, Phase I, Notify Anesthesiologist if total PACU dose reaches 2 mg and pain score 5/10 or more., Indications: Pain 1301 (Given - Provider: Kiki Limon RN)1346 (Given - Provider: Kiki Limon RN)1405 (Given - Provider: Corina Nina RN) lidocaine-EPINEPHrine (XYLOCAINE with EPI) 1 %-1:100,000 injection (CANCELED) As needed, Starting on Tue10/09/21 at 1106, Intra-Op, Indications: Administration of Local Anesthesia 1106 (Given - Provider: Alekasndar Bragg MD) oxyCODONE (ROXICODONE) 1 mg/mL oral solution 5 mg 5 mg, oral, Every 4 hours PRN, 2nd line for pain, Starting on Tue10/09/21 at 1811, May administer 1 hour after 1st line agent for uncontrolled or increasing pain., Indications: Pain oxyCODONE (ROXICODONE) tablet 5 mg (CANCELED) 5 mg, oral, Every 4 hours PRN, 2nd line for pain, Starting on Tue10/09/21 at 1636, May administer 1 hour after 1st line agent for uncontrolled or increasing pain., Indications: Pain 1701 (Given - Provider: Justyna Eid RN) papaverine injection (CANCELED) As needed, Starting on Tue10/09/21 at 1108, Intra-Op 1108 (Given - Provider: Aleksandar Bragg MD) sodium chloride 0.9% flush 0.5-20 mL 0.5-20 mL, intra-catheter, As needed, line care, Starting on Tue10/09/21 at 1636, Flush volume based on line type and size. Flush before and after each use. sodium chloride 0.9% irrigation (CANCELED) As needed, Starting on Tue10/09/21 at 1109, Intra-Op 1109 (Given - Provider: Aleksandar Bragg MD) documented in this encounter Orders Medications Ordered That José Manuel ht Not Have Been Administered Count Last Ordered Date First Ordered Date acetaminophen (TYLENOL) 32 m g/mL oral solution 650 mg 1 10/09/2021 acetaminophen (TYLENOL) tablet 650 mg 1 11/2021 albuterol HFA (PROVENTIL HFA ,VENTOLIN HFA,PROAIR HFA) 90 mcg/actuation inhaler 2 puff 1 10/09/2021 ampicillin-sulbactam (UNASYN ) 3 g/110 mL in sodium chloride 0.9% (premix) 3 g 2 10/09/2021 dexAMETHasone (DECADRON) 4 m g/mL injection 10 mg 1 10/09/2021 diphenhydrAMINE (BENADRYL) injection 25 mg 1 10/09/2021 enoxaparin (LOVENOX) syringe 40 mg 1 2021 txnkeorczbb-yxepuoshs-zqazkd er (TRELEGY ELLIPTA) 100-62.5-25 mcg inhaler 1 puff 1 10/09/2021 haloperidol (HALDOL) injection 1 mg 1 10/09 heparin 5,000 units in sodiu m chloride 0.9% 250 mL 1 10/09/2021 HYDROmorphone (DILAUDID) injection 0.4 mg 1 10/09/2021 Lactated Ringer's (LR) infusion 1 metoprolol XL (TOPROL-XL) ex tended release tablet 50 mg 1 10/09/2021 naloxone (NARCAN) 0.4 mg/mL injection 0.04-0.4 mg 1 10/09/2021 ondansetron (ZOFRAN) injection 4 mg 1 10/09 oxyCODONE (ROXICODONE) 1 mg/ mL oral solution 5 mg 1 10/09/2021 oxyCODONE (ROXICODONE) tablet 5 mg 1 2021 pantoprazole (PROTONIX) 4 mg /mL injection 40 mg 1 10/09/[address] (PROTONIX) e xtended release tablet 40 mg 1 10/09/2021 sodium chloride 0.9% flush 0.5-20 mL 3 11/2021 sodium chloride 0.9% infusion 1 10/09/2021 tamsulosin (FLOMAX) extended release capsule 0.4 mg 1 10/09/2021 Consult Count Last Ordered Date First Orde red Date PHARMACY COMMUNICATION 1 10/09/2021 documented in this encounter Care Teams Investor Relations Manager Relationship Specialty Start Date End Date Liliana May MD [address] [place] [address] PCP - General Family Medicine 01/01/21 Moose Singleton MD [address] [place] [address] Consulting Physician Otolaryngology 09/27/21 documented as of this encounter
--- OUTSIDE RECORDS SUMMARY | 2024-08-08 21:31 | XMS_ITS | Encounter Summary ---
Author Organization [facility] Address [address] [place] [address] Phone Care Team Providers Care Glass Curvature Gauger Name Role Phone Liliana May MD Primary Care Provider Moose Singleton MD Unavailable [phone] Encounter Details Date Type Department Care Team (Late st Contact Info) Description 10/01/2021 Orders Only [facility] - [facility] [address] [facility] [address] [place] [address] [place] [id number] Moose Singleton MD [address] [place] [address] 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) (HCC) (Primary Dx) Social History Tobacco Use Types Packs/Day Years Used Date Smoking Tobacco: Never AUDIT-C Answer Date Recorded Q1: [...] documented as of this encounter Results * Surgical pathology (10/02/2021 11:27 AM CAMPAIGN DEVELOPER) Tissue (Miscellaneous) 10/02/2021 11:27 AM CAMPAIGN DEVELOPER 10/02/2021 11:27 AM CAMPAIGN DEVELOPER Narrative [facility] - 10/05/2021 10:52 AM CAMPAIGN DEVELOPER EPIC results best viewed via link to PDF [facility] Consult Service [address], [address], [place] [address] Note to Patients: This report may contain [...] and explain the details. SURGICAL PATHOLOGY REPORT * Consult Report * [facility] is providing an additional review of previously collected tissue. FINAL Patient Name: ??CHILO JI Address: ??[address] [place], [place] [address], [place], [place] ??[address] Gender: ??M : ??1950 (Age: 71) Hospital #: ??[id number] Patient Type: ??[facility] Location: ??[facility] Taken: ??10/02/2021 Received: ??10/02/2021 Accessioned: ??10/02/2021 Reported: ??10/05/2021 Physician(s): Moose Singleton M.D., PH.D. [facility] [facility] [address], [place] [address] P: [phone] F: [phone] Diagnosis: Consult material received for review from [facility], [place], [place] (OSC [id number]; 09/04/2021): Oral cavity, anterior floor of the mouth, biopsy ? - At least severe squamous dysplasia/carcinoma in situ (see comment) - Organisms morphologically consistent with Allison xxd/10/05/2021 07:47 By this signature, I attest that the above diagnosis is based upon my personal examination of the slides(and/or other material indicated in the diagnosis). Nasra Romano M.D. Report Electronically Reviewed and Signed Out By Nasra Romano M.D. 10/05/2021 10:52:37 Microscopic Description and Comment: Microscopic examination substantiates the above cited diagnosis. Sections show superficial and poorly-oriented fragments of at least severe squamous dysplasia/carcinoma in situ. Definite invasion is not identified. The diagnosis was communicated to Dr. Moose Singleton on 10/05/2021. Vicenta Chapin M.D. 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 Materials Received: Received for review is one slide labeled [id number], accompanied by the corresponding pathology reports. The materials originated from [facility], [place], [place]. Selected slide(s) may be digitally scanned for our files, and all material is returned to the referring institution, along with a copy of our final report. Any testing required for diagnostic purposes was performed in the Department of Pathology and Immunology at [facility], [address] [place] [id number] CLIA # [id number] The performance characteristics of the testing cited in this report (if any) were determined by the ??[facility] Department of Pathology and Immunology [facility], as part of an ongoing manager quality program and in compliance with federally mandated regulations drawn from the Clinical Laboratory Improvement Act of 1988 (CLIA '88). ??Some of these tests rely on the use of analyte specific reagents (ASR) and are subject to specific labeling requirements by the US Food and Drug Administration. ??Such diagnostic tests may only be performed in a facility that is certified by the Department of Health and Human Services as a high complexity laboratory under CLIA '88. ??The FDA has determined that such clearance or approval is not necessary. ??ASRs should not be regarded as investigational or for research. ??ASRs were developed and the performance characteristics determined by the [facility], [facility] Department of Pathology and Immunology. ??It has not been cleared or approved by the U.S. Food and Drug Administration. ??Any test designated as LDT was developed and its performance characteristics determined by [facility]. It has not been cleared or approved by the FDA. This test is used for clinical purposes and should not be regarded as investigational or for research. Report images and/or scanned reports, if included, only viewable in PDF version of report. us Moose Singleton MD LAB PATHOLOGY ORDERABL ES Final Result [facility] [address] [address] documented in this encounter Visit Diagnoses Diagnosis 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)- Primary Malignant neoplasm of floor of mouth, part unspecified 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) Malignant neoplasm of floor of mouth, part unspecified documented in this encounter Care Teams Glass Curvature Gauger Relationship Specialty Start Date End Date Liliana May MD [address] [place] [address] PCP - General Family Medicine 01/01/21 Moose Singleton MD [address] [place] [address] Consulting Physician Otolaryngology 09/27/21 documented as of this encounter
--- OUTSIDE RECORDS SUMMARY | 2024-08-08 21:31 | XMS_ITS | Encounter Summary ---
Author Organization [facility] Healthcare Address [address] [place] [address] Care Team Providers Care Slitting Machine Feeder Name Role Phone Liliana May MD Primary Care Provider Moose Singleton MD Unavailable [phone] Encounter Details Date Type Department Care Team (Late st Contact Info) Description 10/09/2021 8:20 AM OIL FIELD EQUIPMENT MECHANIC Anesthesia Event [facility] Operating Room [address] [place] [address] Mahin Cruz MD 1 [facility] [address] [place] [address] Breanne Flowers NP [address] [facility] [address] [place] [address] Anesthesia Record Procedure Summary Procedure Name Responsible Anesthesiologist Anesthesia Start Time Anesthesia Stop Time FLOOR OF MOUTH RESECTION, PARTIAL MANDIBULECTOMY, DENTAL EXTRACTIONS (Mouth) Mahin Cruz MD 10/09/21 0820 10/09/21 1259 Events Date Time Event Comment 10/09/2021 0604 In Preop 0703 0820 An Start 0825 In Room 0827 An Start Data 0836 An Induction The patient was reevaluated immediately before moderate or deep sedation use and before anesthesia induction. 0841 An Intubation 0850 Anesthesia Ready 0859 Proc Start 0900 Incision Start 0947 Quick Note Waiting for fro regan section. 1107 Quick Note Frozen back. De cision made to precede without doing Flap. 1224 Proc Fin 1227 An Extubation 1240 an stop data 1241 Out of Room 1259 Handoff to RN I completed my handoff to the receiving nurse during which we: 1. Patient identified 2. Responsible provider identified 3. Pertinent medical history reviewed 4. Procedure type and surgical course discussed 5. Intraoperative anesthetic management and any significant issues discussed 6. Expectations and concerns for postop period discussed 7. Questions solicited from receiving nurse 8. Patient disposition at the time of handoff: PACU 1259 An Stop Meds Name Total midazolam PF 2 mg lidocaine (cardiac) syringe 2 % 40 mg propofol 100 mg fentaNYL 250 mcg succinylcholine 80 mg ePHEDrine 25 mg fentaNYL infusion 50 mcg/mL 107.09 mcg ampicillin-sulbactam (UNASYN ) 3 g/110 mL in sodium chloride 0.9% (premix) 3 g 6 g phenylephrine infusion (100 mcg/mL) 7.5 mg dexamethasone 4 mg/mL 18 mg albuterol inhaler 2 puff oxymetazoline 0.05 % 4 mL Lactated Ringer's (LR) infusion 1,000 mL LR 0 mL * Agents Name O2% N2O O2 Air Sevoflurane Inspired Sevoflurane * Blood No blood administrations on file. Lines, Drains, and Airways Type Details Placement Removal Peripheral IV Placement Date: 10/09/21; Placement Time: 624; Catheter Size: 18 G; Orientation: Posterior, Right; Location: Hand; Site Prep: Chlorhexidine; Technique: Anatomical landmarks; Inserted by: vera ADAM; Insertion Attempts: 1; Patient Tolerance: Tolerated well; Removal Date: 10/16/21; Removal Time: 1812; Removal Reason: Not present on admission 10/09/21 0625 by Max Floewr NP 10/16/211812 by Nancy Terrell RN ETT Placement Date: 10/09/21; Placement Time: 840 (created via procedure documentation); Mask Ventilation: 0; Technique: Video laryngoscopy; Type: WILMER tube; Single Lumen Tube Size: 7 mm; Cuffed: Yes; Laryngoscope: Akin; Blade Size: 3; Location: Right nare; Grade View: Grade IIa; Insertion Attempts: 1; Placement Verification: Auscultation, Capnometry; Removal Date: 10/09/21; Removal Time: 1227 10/09/21 0841 by Nelly Pittman CRNA 10/09/21 1227 by Mahin Cruz MD Peripheral IV Placement Date: 10/09/21; Placement Time: 0938 (created via procedure documentation); Catheter Size: 16 G; Orientation: Right; Location: Forearm; Site Prep: Chlorhexidine; Insertion Attempts: 1; Removal Date: 10/16/21; Removal Time: 181; Removal Reason: Not present on admission 10/09/21 0938 by Nelly Pittman CRNA 10/16/21 1814 by Nancy Terrell RN RETIRED Surgical Site 10/09/21; 1225; Ot her (Comment); Suture In Oral Cavity Only; 10/18/21; 0834 10/09/21 1225 by Kwaku Marks RN 10/18/21 0834 by Augie Bowling RN Arterial Line Placement Date: 10/09/21; Placemnt Time: 1999 (created via procedure documentation); Size: 20 G; Orientation: Right; Location: Radial; Securement: Taped, Transparent dressing; Removal Date: 10/10/21; Removal Time: 0000; Removal Reason: Occluded 10/09/211999 by Nelly Pittman CRNA 10/10/21 0000 by Malcom Kat RN documented in this encounter Social History Tobacco Use Types Packs/Day Years Used Date Smoking Tobacco: Every Day Cigarettes 0.4 57 Started: 1966 Smokeless Tobacco: Never AUDIT-C Answer Date Recorded [...] on file documented as of this encounter OR Notes * Anesthesia Postprocedure Evaluation - Conchita Greenfield MD PhD - 10/09/2021 2:59 PM CST Patient: Chilo Cross Procedure Summary Date: 10/09/21 Room / Location: [facility] OR POD 5 ROOM 220 / [facility] OR POD 5 Anesthesia Start: 0820 Anesthesia Stop: 1259 Procedures: FLOOR OF MOUTH RESECTION, PARTIAL MANDIBULECTOMY, DENTAL EXTRACTIONS (N/A Mouth) DIRECT LARYNGOSCOPY, FLEXIBLE ESOPHAGOSCOPY (N/A Throat) 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]) Surgeons: Moose Singleton MD Responsible Provider: Mahin Cruz MD Anesthesia Type: general ASA Status: 3 Anesthesia Type: general Last vitals BP 111/54 Pulse 63 Temp 36.3 ??C (97.3 ??F) (Temporal) Resp 13 SpO2 95% Anesthesia Post Evaluation Patient location during evaluation: PACU Patient participation: complete - patient participated Level of 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 No complications documented. FIELD EQUIPMENT MECHANIC * Anesthesia Procedure Notes - Nelly Trujillo CRNA - 10/09/2021 9:38 AM CSTAssociated Order(s): Peripheral IV Catheter Peripheral IV Catheter Patient location: OR Staff: Supervising provider: Mahin Cruz MD Placed by: ACID RECOVERY OPERATOR: Nelly Trujillo CRNA Preprocedure prep: Prep solution: chlorhexadine PPE: gloves and provider hat/mask PIV line: Laterality: right Site: forearm Catheter size: 16 g Technique: anatomical landmarks, direct visualization and palpatation Procedure details: good blood return and occlusive dressing applied Number of attempts: 1 Assessment: Events: patient tolerated procedure well with no complications FIELD EQUIPMENT MECHANIC * Anesthesia Procedure Notes - Nelly Trujillo CRNA - 10/09/2021 9:36 AM CSTAssociated Order(s): Arterial Line Arterial Line Patient location: OR Indication: continuous blood pressure monitoring and blood sampling needed Ultrasound assisted: yes Staff: Supervising provider: Mahin Cruz MD Placed by: ACID RECOVERY OPERATOR: Nelly Trujillo CRNA Procedure prep: Prep solution: chlorhexadine/alcohol Prep: provider hat/mask, sterile gloves and sterile drape Arterial line: Catheter size: 20 gauge Catheter type: angiocath Seldinger technique: no Laterality: right Site: radial artery Line secured: tape and Tegaderm Results: good waveform and good blood return Number of attempts: 1 Assessment: Events: patient tolerated procedure well with no complications FIELD EQUIPMENT MECHANIC * Anesthesia Procedure Notes - Nelly Trujillo CRNA - 10/09/2021 9:35 AM CSTAssociated Order(s): Airway Airway Patient location: OR Urgency: elective Date/time: 10/09/2021 8:41 AM Indications for airway management: anesthesia Difficult airway: no Staff: Supervising provider: Mahin Cruz MD Placed by: ANY: Nelly Trujillo CRNA Emergent airway documentation: Risks and benefits discussed: yes Consent obtained: yes Consent given by: patient Airway prep: Preoxygenated: yes MILS maintained throughout: yes Mask difficulty assessment: 0 - not attempted Spontaneous ventilation during airway: absent Sedation level during airway: GA Final airway details: Final airway type: endotracheal airway Tube type: WILMER tube ETT size: 7.0 mm Cuffed: yes Technique used for successful ETT placement: video laryngoscopy Insertion site: right nare Blade type: Akin Video blade type: Lovell Blade size: 3 Cormack-Lehane (direct): grade IIa - partial view of glottis Cormack-Lehane (video): grade I - full view of glottis Cuff inflated with: air ETT to nares: 29 cm Placement verified by: auscultation and CO2 detection Airway secured with: silk tape Number of attempts: 1 FIELD EQUIPMENT MECHANIC * Anesthesia Preprocedure Evaluation - Mahin Cruz MD - 10/05/2021 9:37 AM OIL FIELD EQUIPMENT MECHANIC Images from the original note were not included. [facility] Preoperative [facility] Planning Preoperative Evaluation Record Evaluation type/location: CPAP [facility] Planned procedure site: [facility] (Pods 2/3/5/LEAK DETECTOR) Date: 10/05/21 Anesthesia Evaluation Chilo Cross is a 71 y.o. 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 Pertinent negatives: [place] ; CABG ; valve replacement; arrhythmia; pacemaker/ICD; [...] Jose Daniel Dexter MD Additional comments: Chilo Cross is a 71 y.o. male who is [...] of vaccination status is available in the [facility] Immunization tab. . Plan for pre-procedure COVID19 testing: Surgery date within 4 days. Pre-procedure COVID19 testing performed at CPAP. Result pending- to be reviewed by surgeon's office. This patient has a history of atrial fibrillation at LOW risk for perioperative thromboembolic events with a [id number] score of 4 and no known history [...] verbalizes understanding. >>Pt's surgery is scheduled for 3; pt is still on his plavix, last [...] hospitalization 07/2021. Will obtain last OVN from [facility]. Preoperative evaluation performed by Breanne Flowers NP [...] verbalizes understanding. >Awaiting labs and OVN from [id number]. Follow-up completed by: Breanne Flowers NP on [...] note Reviewed last OVN from pulmonology in [facility] and most recent PFT's as noted [...] (cancer of floor of mouth) (CMS/HCC) (HCC) History reviewed. No pertinent past medical history. Past Surgical History: Procedure Laterality Date ??? BRONCHOSCOPY ??? CARDIAC STENT PLACEMENT ??? VASECTOMY Allergies Allergen Reactions ??? Sulfa (Sulfonamide Antibiotics) Shortness of breath ??? Lisinopril Cough Med List Status: Nurse Complete Set By: Estefany Carter RN at 10/05/2021 9:59 AM Taking? Last Dose Start Date End Date Provider acetaminophen (TYLENOL) 325 mg tablet -- -- ProviderRadha MD albuterol sulfate (PROAIR HFA INHAL) Past [...] tablet 10/05/2021 09/11/21 -- Radha Romano MD zikpogwjmel-pirlzmoxg-xehhqafx (Trelegy Ellipta) 100-62.5-25 mcg inhaler 10/05/2021 01/21/08 [...] mg extended release capsule 10/05/2021 07/28/21 -- ProviderRadha MD Current Outpatient Medications: ??? acetaminophen (TYLENOL) 325 mg tablet ??? albuterol sulfate (PROAIR HFA INHAL) ??? benzonatate (TESSALON) 200 mg capsule ??? calcium carbonate/vitamin D3 (CALCIUM 500 + D, D3, ORAL) ??? cetirizine (ZyrTEC) 10 mg tablet ??? clopidogreL (PLAVIX) 75 mg tablet ??? Eliquis 5 mg tablet ??? sbokbonitth-qraxavfnf-zmypdpun (Trelegy Ellipta) 100-62.5-25 mcg inhaler ??? furosemide [...] current state is cooperative and interactive. Vitals: 02/28/22 0945 10/05/21 0949 BP: 140/82 126/80 Pulse: [...] Score: 0 Short Blessed Total Score: 0 DOS Physical Exam Medical history, medications, and allergies reviewed. Attestation: This PAT evaluation Airway Exam: Mallampati: I Cervical ROM: FROM Cardiovascular Exam: Rate: regular Rhythm: regular Pulmonary Exam: LCTA Anesthesia Plan ASA 3 My patient is approved for the Anesthesia Controlled Medication protocol when under care of a ACID RECOVERY OPERATOR Planned anesthesia: General Consent and Attending signature: I and/or my designee have discussed the anesthesia plan, benefits, possible alternatives, parental presence at time of induction (if indicated), and clinically relevant risks that may include dental injury, unintentional awareness, and/or other complications. The patient and/or parent/legal guardian understand, and agree to proceed. All questions answered. FIELD EQUIPMENT MECHANIC FIELD EQUIPMENT MECHANIC FIELD EQUIPMENT MECHANIC FIELD EQUIPMENT MECHANIC FIELD EQUIPMENT MECHANIC FIELD EQUIPMENT MECHANIC FIELD EQUIPMENT MECHANIC FIELD EQUIPMENT MECHANIC FIELD EQUIPMENT MECHANIC documented in this encounter Plan of Treatment Not on file documented as of this encounter Procedures Procedure Name Priority Date/Time Associated Diagnosis Comments IA AN PROCEDURE PLACEHOLDER Routine 10/09/2021 9:38 AM OIL FIELD EQUIPMENT MECHANIC IA AN PROCEDURE PLACEHOLDER Routine 10/09/2021 9:36 AM OIL FIELD EQUIPMENT MECHANIC IA AN PROCEDURE PLACEHOLDER Routine 10/09/2021 8:41 AM OIL FIELD EQUIPMENT MECHANIC IA AN ELECTIVE ENDOTRACHEAL AIRWAY Routine 10/09/2021 8:41 AM OIL FIELD EQUIPMENT MECHANIC documented in this encounter Results * IA AN PROCEDURE PLACEHOLDER (10/09/2021 9:38 AM OIL FIELD EQUIPMENT MECHANIC) Narrative Nelly Trujillo CRNA - 10/09/2021 9:38 AM OIL FIELD EQUIPMENT MECHANIC Nelly Trujillo CRNA ? 10/09/2021 ??9:38 AM Peripheral IV Catheter Patient location: OR Staff: Supervising provider: Mahin Cruz MD Placed by: ACID RECOVERY OPERATOR: Nelly Trujillo CRNA Preprocedure prep: Prep solution: chlorhexadine PPE: gloves and provider hat/mask PIV line: Laterality: right Site: forearm Catheter size: 16 g Technique: anatomical landmarks, direct visualization and palpatation Procedure details: good blood return and occlusive dressing applied Number of attempts: 1 Assessment: Events: patient tolerated procedure well with no complications us Mahin Cruz MD ANESTHESIA ORDERABLES Final Resu lt * IA AN PROCEDURE PLACEHOLDER (10/09/2021 9:36 AM OIL FIELD EQUIPMENT MECHANIC) Narrative Nelly Trujillo CRNA - 10/09/2021 9:36 AM OIL FIELD EQUIPMENT MECHANIC Nelly Trujillo CRNA ? 10/09/2021 ??9:38 AM Arterial Line Patient location: OR Indication: continuous blood pressure monitoring and blood sampling needed Ultrasound assisted: yes Staff: Supervising provider: Mahin Cruz MD Placed by: ACID RECOVERY OPERATOR: Nelly Trujillo CRNA Procedure prep: Prep solution: chlorhexadine/alcohol Prep: provider hat/mask, sterile gloves and sterile drape Arterial line: Catheter size: 20 gauge Catheter type: angiocath Seldinger technique: no Laterality: right Site: radial artery Line secured: tape and Tegaderm Results: good waveform and good blood return Number of attempts: 1 Assessment: Events: patient tolerated procedure well with no complications us Mahin Cruz MD ANESTHESIA ORDERABLES Final Resu lt * IA AN ELECTIVE ENDOTRACHEAL AIRWAY, IA AN PROCEDURE PLACEHOLDER (10/09/2021 8:41 AM OIL FIELD EQUIPMENT MECHANIC) Narrative Nelly Trujillo CRNA - 10/09/2021 8:41 AM OIL FIELD EQUIPMENT MECHANIC Nelly Trujillo CRNA ? 10/09/2021 ??9:36 AM Airway Patient location: OR Urgency: elective Date/time: 10/09/2021 8:41 AM Indications for airway management: anesthesia Difficult airway: no Staff: Supervising provider: Mahin Cruz MD Placed by: ACID RECOVERY OPERATOR: Nelly Trujillo CRNA Emergent airway documentation: Risks and benefits discussed: yes Consent obtained: yes Consent given by: patient Airway prep: Preoxygenated: yes MILS maintained throughout: yes Mask difficulty assessment: 0 - not attempted Spontaneous ventilation during airway: absent Sedation level during airway: GA Final airway details: Final airway type: endotracheal airway Tube type: WILMER tube ETT size: 7.0 mm Cuffed: yes Technique used for successful ETT placement: video laryngoscopy Insertion site: right nare Blade type: Akin Video blade type: Lovell Blade size: 3 Cormack-Lehane (direct): grade IIa - partial view of glottis Cormack-Lehane (video): grade I - full view of glottis Cuff inflated with: air ETT to nares: 29 cm Placement verified by: auscultation and CO2 detection Airway secured with: silk tape Number of attempts: 1 Mahin Cruz MD ANESTHESIA ORDERABLES Final Resu lt documented in this encounter Visit Diagnoses Not on filedocumented in this encounter Administered Medications Inactive Administered Medications - up to 3 most recent administrations Medication Order MAR Action Action Date Dose Rate Site albuterol HFA (PROVENTIL HFA,VENTOLIN HFA,PROAIR HFA) 90 mcg/actuation inhaler inhalation, As needed, Starting on Tue10/09/21 at 0820, Anesthesia Intra-op Given 10/09/2021 8:20 AM OIL FIELD EQUIPMENT MECHANIC 2 puffs ampicillin-sulbactam (UNASYN) 3 g/110 mL in sodium chloride 0.9% (premix) 3 g 3 g, intravenous, Administer over 30 Minutes, Once, On Tue10/09/21 at 0645, For 1 dose, Intra-Op, Indications: Prophylaxis, SurgicalIndications:Prophylaxis, Surgical Given 10/09/2021 10:37 AM OIL FIELD EQUIPMENT MECHANIC 3 g Given 10/09/2021 8:50 AM OIL FIELD EQUIPMENT MECHANIC 3 g dexAMETHasone (DECADRON) 4 mg/mL injection intravenous, Administer over 2 Minutes, As needed, Starting on Tue10/09/21 at 0948, Anesthesia Intra-op Given 10/09/2021 12:02 PM OIL FIELD EQUIPMENT MECHANIC 8 mg Given 10/09/2021 9:48 AM OIL FIELD EQUIPMENT MECHANIC 10 mg ePHEDrine injection intravenous, Administer over 5 Minutes, As needed, Starting on Tue10/09/21 at 0904, Anesthesia Intra-op Given 10/09/2021 9:28 AM OIL FIELD EQUIPMENT MECHANIC 5 mg Given 10/09/2021 9:12 AM OIL FIELD EQUIPMENT MECHANIC 10 mg Given 10/09/2021 9:04 AM OIL FIELD EQUIPMENT MECHANIC 10 mg fentaNYL (SUBLIMAZE) preservative free injection intravenous, As needed, Starting on Tue10/09/21 at 0836, Anesthesia Intra-op Given 10/09/2021 9:38 AM OIL FIELD EQUIPMENT MECHANIC 50 mcg Given 10/09/2021 9:20 AM OIL FIELD EQUIPMENT MECHANIC 50 mcg Given 10/09/2021 9:00 AM OIL FIELD EQUIPMENT MECHANIC 100 mcg fentaNYL 2500 mcg/50 mL cassette/syringe (premix) intravenous, As needed, Starting on Tue10/09/21 at 0850, Anesthesia Intra-op Rate/Dose Change 10/09/2021 11:07 AM OIL FIELD EQUIPMENT MECHANIC 0.5 mcg/kg/hr 0.726 mL/hr Rate/Dose Change 10/09/2021 9:47 AM OIL FIELD EQUIPMENT MECHANIC 0.5 mcg/kg/hr 0.72 6 mL/hr Rate/Dose Change 10/09/2021 9:40 AM OIL FIELD EQUIPMENT MECHANIC 1 mcg/kg/hr 1.452 mL/hr Lactated Ringer's (LR) infusion 30 mL/hr, intravenous, Continuous, Starting on Tue10/09/21 at 0645, Pre-Op Restarted 10/09/2021 11:37 AM OIL FIELD EQUIPMENT MECHANIC Rate/Dose Verify 10/09/2021 8:20 AM OIL FIELD EQUIPMENT MECHANIC 30 mL/h r Restarted 10/09/2021 7:35 AM OIL FIELD EQUIPMENT MECHANIC Lactated Ringer's (LR) infusion intravenous, Continuous PRN, Starting on Tue10/09/21 at 0850, Anesthesia Intra-op New Bag 10/09/2021 8:50 AM OIL FIELD EQUIPMENT MECHANIC lidocaine (cardiac) (XYLOCAINE) preservative free injection intravenous, As needed, Starting on Tue10/09/21 at 0836, Anesthesia Intra-op, Indications: Ventricular ArrhythmiasIndications:Ve ntricular Arrhythmias Given 10/09/2021 8:36 AM OIL FIELD EQUIPMENT MECHANIC 40 mg midazolam (VERSED) 1 mg/mL preservative free injection intravenous, Administer over 2 Minutes, As needed, Starting on Tue10/09/21 at 0820, Anesthesia Intra-op Given 10/09/2021 8:20 AM OIL FIELD EQUIPMENT MECHANIC 2 mg oxymetazoline (AFRIN) 0.05 % nasal spray each nostril, As needed, Starting on Tue10/09/21 at 0820, Anesthesia Intra-op Given 10/09/2021 8:20 AM OIL FIELD EQUIPMENT MECHANIC 4 mL phenylephrine (BAM-SYNEPHRINE) 5 mg/50 mL (100 mcg/mL) in sodium chloride 0.9% (premix) intravenous, Continuous PRN, Starting on Tue10/09/21 at 0850, Anesthesia Intra-op Rate/Dose Change 10/09/2021 12:18 PM OIL FIELD EQUIPMENT MECHANIC 0.3 mcg/kg/min 13.068 mL/hr Rate/Dose Change 10/09/2021 11:21 AM OIL FIELD EQUIPMENT MECHANIC 0.6 mcg/kg/min 26 .136 mL/hr Restarted 10/09/2021 11:15 AM OIL FIELD EQUIPMENT MECHANIC 0.4 mcg/kg/min 17.424 m L/hr propofoL (DIPRIVAN) 10 mg/mL IV intravenous, As needed, Starting on Tue10/09/21 at 0836, Anesthesia Intra-op Given 10/09/2021 8:36 AM OIL FIELD EQUIPMENT MECHANIC 100 mg succinylcholine (ANECTINE) injection intravenous, As needed, Starting on Tue10/09/21 at 0836, Anesthesia Intra-op Given 10/09/2021 8:36 AM OIL FIELD EQUIPMENT MECHANIC 80 mg documented in this encounter Care Teams Slitting Machine Feeder Relationship Specialty Start Date End Date Liliana May MD [address] [place] [address] PCP - General Family Medicine 01/01/21 Moose Singleton MD [address] [place] [address] Consulting Physician Otolaryngology 09/27/21 documented as of this encounter
--- OUTSIDE RECORDS SUMMARY | 2024-08-08 21:31 | XMS_ITS | Encounter Summary ---
Author Organization [facility] Address [address] [place] [address] Phone Care Team Providers Care Hairspring Studder Name Role Phone Liliana May MD Primary Care Provider Moose Singleton MD Unavailable [phone] Encounter Details Date Type Department Care Team (Late st Contact Info) Description 10/02/2021 Orders Only [facility] [address] [place] [address] Moose Singleton MD [address] [place] [address] FOM (cancer of floor of mouth) ([facility]/HCC) (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 FINAL Patient Name: ??CHILO JI Address: ??[address] [place] [address] [place], ?[place], [place] ??[address] Gender: ??M : ??1950 (Age: 71) [facility] #: ??[id number] Patient Type: ??WU Location: ??PVTOP Taken: ??10/02/2021 Received: ??10/02/2021 Accessioned: ??10/02/2021 Reported: ??10/05/2021 Physician(s): Moose Singleton M.D., PH.D. [facility] [employer] Oral [facility] Medical Physics Professor Laboratory [address], [place] [address] P: [phone] F: [phone] Diagnosis: Consult material received for review from [facility], [place], [place] (OSC [id number]; 09/04/2021): Oral cavity, anterior floor of the [...] Received for review is one slide labeled [id number], accompanied by the corresponding pathology reports. The materials originated from [facility], [place], [place]. Selected slide(s) may be digitally scanned for our files, and all material is returned to the referring institution, along with a copy of our final report. Any testing required for diagnostic purposes was performed in the Department of Pathology and Immunology at [facility], [address] [place] [id number] CLIA # [id number] The performance characteristics of the testing cited in this report (if any) were determined by the ??[facility] Department of Pathology and Immunology [facility], as part of an ongoing quality control tech program and in compliance with federally mandated [...] and the performance characteristics determined by the [facility], [facility] Department of Pathology and Immunology. ??It has not been cleared or approved by the U.S. Food and Drug Administration. ??Any test designated as LDT was developed and its performance characteristics determined by [facility]. It has not been cleared or approved by the FDA. This test is used for clinical purposes and should not be regarded as investigational or for research. Report images and/or scanned reports, if included, only viewable in PDF version of report. 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
--- OUTSIDE RECORDS SUMMARY | 2024-08-08 21:31 | XMS_ITS | Encounter Summary ---
Author Organization [facility] Healthcare Address [address] [place] [address] Care Team Providers Care Press Supervisor Name Role Phone Liliana May MD Primary Care Provider Moose Singleton MD Unavailable [phone] Encounter Details Date Type Department Care Team (Latest Contact Info) Description 10/09/2021 5:56 AM SUPERVISING APPRAISER - 10/11/2021 4:47 PM SUPERVISING APPRAISER Hospital Encounter [facility] [address] [place] [address] Moose Singleton MD [address] [place] [address] FOM (cancer of floor of mouth) ([facility]/HCC) ([facility]) Discharge Disposition: Discharge to home or self [...] Sign Reading Time Taken Comments Blood Pressure 138/64 10/11/2021 2:49 PM SUPERVISING APPRAISER Pulse 48 10/11/2021 2:49 PM SUPERVISING APPRAISER Temperature 36.6 ??C (97.8 ??F) 10/11/2021 2:00 PM CS T Respiratory Rate 21 10/11/2021 2:49 PM SUPERVISING APPRAISER Oxygen Saturation 99% 10/11/2021 2:49 PM SUPERVISING APPRAISER Inhaled Oxygen Concentration - - Weight - - Height - - Body Mass Index - - documented in this encounter Discharge Diagnoses Diagnosis 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) - MALIGNANT NEOPLASM OF BASE OF TONGUE 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) - MALIGNANT NEOPLASM OF MANDIBLE Malignant neoplasm of mandible Malignant neoplasm of lower gum (HCC) - MALIGNANT NEOPLASM OF LOWER GUM Malignant neoplasm of lower gum Nicotine dependence, cigarettes, uncomplicated - NICOTINE DEPENDENCE, CIGARETTES, UNCOMPLICATED Hypertensive heart disease with heart failure (CMS/HCC) (HCC) - HYPERTENSIVE HEART DISEASE WITH HEART FAILURE Unspecified hypertensive heart disease with heart failure Atherosclerotic heart disease of [place] coronary artery without angina pectoris - ATHEROSCLEROTIC HEART DISEASE OF [place] CORONARY ARTERY WITHOUT ANGINA PECTORIS Other secondary pulmonary hypertension (HCC) - OTHER SECONDARY PULMONARY HYPERTENSION Unspecified atrial fibrillation (HCC) - UNSPECIFIED ATRIAL FIBRILLATION Chronic obstructive pulmonary disease, unspecified (HCC) - CHRONIC OBSTRUCTIVE PULMONARY DISEASE, UNSPECIFIED Gastro-esophageal reflux disease without esophagitis - GASTRO-ESOPHAGEAL REFLUX DISEASE WITHOUT ESOPHAGITIS Benign prostatic hyperplasia without lower urinary tract symptoms - BENIGN PROSTATIC HYPERPLASIA WITHOUT LOWER URINARY TRACT SYMPTOMS Bradycardia, unspecified - BRADYCARDIA, UNSPECIFIED Other rheumatic multiple valve diseases - OTHER RHEUMATIC MULTIPLE VALVE DISEASES prison (current) use of antithrombotics/antiplatelets - LICENSE REGISTRATION EXAMINER (CURRENT) USE OF ANTITHROMBOTICS/ANTIPLATELETS Presence of coronary angioplasty implant and graft - PRESENCE OF CORONARY ANGIOPLASTY IMPLANT AND GRAFT documented in this encounter Discharge Summaries * Cintia Ruffin MD - 10/11/2021 10:38 AM CST Inpatient Discharge Summary BRIEF OVERVIEW Admitting Provider: Moose Singleton MD Discharge Provider: Moose Singleton MD Primary Care Physician at Discharge: Liliana May MD [phone] Admission Date: 10/09/2021 Discharge Date: 10/11/2021 Admission Location: [facility] Problems/Diagnoses: Principal Problem: FOM (cancer of floor [...] Hold metoprolol on discharge - F/u with PCP/pet nutrition specialist to restart medication Medical Conditions Present Prior [...] and eliquis 2. Metoprolol -- f/u with pet nutrition specialist/PCP Test Results Pending at Discharge: Pending Labs [...] should follow-up with your family doctor or pet nutrition specialist on Tuesday to determine whether you should continue this medication. Questions: If you have any concerns or questions, or develop worrisome symptoms such as worsening pain or swelling, bleeding, fever, or vomiting, call your doctor. Use [phone] if you are calling during weekday business hours (8am-5pm Tuesday through Tuesday), otherwise call [phone] and ask for the ENT resident flood control engineer. Discharge Medications: Current Medications TAKE these medications [...] Inhale 1 puff every morning Generic drug: zqnqvpzqwpo-xyxviawen-gyomgtnu * This list has 2 medication(s) that are the same as other medications prescribed for you. Read the directions carefully, and ask your doctor or other care provider to review them with you. Outpatient Follow-Up: Future Appointments Date Time Provider Department Center 10/26/2021 2:00 PM Della Hensley, [facility]A [facility] 10/26/2021 3:20 PM Moose Singleton MD [facility] 11A OY 10/30/2021 1:00 PM Scot Pollock MD [facility] Cosigned by Moose Singleton MD at 10/12/2021 8:35 AM SUPERVISING APPRAISER RVISING APPRAISER RVISING APPRAISER documented in this encounter Discharge Instructions * Discharge Instructions* Corina Mccracken MD - 10/11/2021 2:39 PM SUPERVISING APPRAISER ENT Post Operative Discharge Instructions Procedure: L [...] should follow-up with your family doctor or pet nutrition specialist on Tuesday to determine whether you should continue this medication. Questions: If you have any concerns or questions, or develop worrisome symptoms such as worsening pain or swelling, bleeding, fever, or vomiting, call your doctor. Use [phone] if you are calling during weekday business hours (8am-5pm Tuesday through Tuesday), otherwise call [phone] and ask for the ENT resident flood control engineer. RVISING APPRAISER documented in this encounter Medications at Time [...] Destination Discharge to home or self care [facility] documented in this encounter Progress Notes * [...] Q8H AMEE enoxaparin, 40 mg, subcutaneous, Daily-2100 hcgregikdyh-kaokybbpm-eeejjvqb, 1 puff, inhalation, Daily (RT) metoprolol XL, [...] - Pain control: Tylenol/PRN oxy - Airway: [place] - Diet: start FLD diet today - [...] Tue - Tue Daytime: ASHLEY Mcgovern at [phone] Mon Daytime (backup Tue-Tue Days): See HYACIN[facility] for [facility] Neck (pw: [email or web address]) Weekends & After 6pm: ENT Consult Cosigned by Moose Singleton MD at 10/12/2021 8:36 AM SUPERVISING APPRAISER RVISING APPRAISER RVISING APPRAISER * Maria Elena Wise MD - 10/10/2021 [...] Q8H AMEE enoxaparin, 40 mg, subcutaneous, Daily-2100 lcgazeysuxw-tvvpnhyza-vqgzknag, 1 puff, inhalation, Daily (RT) metoprolol XL, [...] Lying Pulse: 61 60 72 68 Resp: 23 Temp: TempSrc: SpO2: General: Alert & [...] 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) ([facility]) Assessment: 71 y.o. 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 s/p OR WLE, rim mandibulectomy, partial closure with remaining left to heal by secondary intention Plan: #Postoperative care - Pain control: Tylenol/PRN oxy - Airway: [place] - Diet: CLD POD1 in PM -> [...] Tue - Tue Daytime: ASHLEY Mcgovern at [phone] Mon Daytime (backup Tue-Tue Days): See [facility] for [facility] (pw: [email or web address]) Weekends & After 6pm: ENT Consult Cosigned by Moose Singleton MD at 10/12/2021 8:36 AM SUPERVISING APPRAISER RVISING APPRAISER RVISING APPRAISER * Maria Elena Wise MD - 10/09/2021 [...] - Pain control: Tylenol/PRN oxy - Airway: [place] - Diet: NPO -> CLD POD1 in PM -> FLD POD2 in AM - GI ppx: protonix - Abx: unasyn - DVT ppx: lovenox, SCDs, OOB - Cunningham: none Maria Elena Wise MD Otolaryngology - Head & Neck Surgery For questions please reach out to: Tue - Tue Daytime: ASHLEY Mcgovern at [phone] Mon Daytime (backup Tue-Tue Days): See HYACIN[facility] for [facility] (pw: [email or web address]) Weekends & After 6pm: ENT Consult RVISING APPRAISER documented in this encounter H&P Notes * [...] Moose Singleton MD at 10/09/2021 7:27 AM SUPERVISING APPRAISER RVISING APPRAISER RVISING APPRAISER Source Note - Breanne Flowers NP - 10/05/2021 9:37 AM SUPERVISING APPRAISER Images from the original note were not included. Center for Preoperative Assessment and Planning Preoperative Evaluation Record Evaluation type/location: [facility] Planned procedure site: [facility] (Pods 2/3/5/[facility]) Date: 10/05/21 Anesthesia Evaluation Chilo Ji is a 71 y.o. 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 Pertinent negatives: CO ; CABG ; valve replacement; arrhythmia; pacemaker/ICD; [...] 4 days. Pre-procedure COVID19 testing performed at [facility]. Result pending- to be reviewed by surgeon's office. This patient has a history of atrial fibrillation at LOW risk for perioperative thromboembolic events with a [id number] score of 4 and no known history [...] hospitalization 07/2021. Will obtain last OVN from log yard derrick operator. Preoperative evaluation performed by Breanne Flowers NP [...] verbalizes understanding. >Awaiting labs and OVN from [id number]. Follow-up completed by: Breanne Flowers NP on [...] note Reviewed last OVN from pulmonology in [facility] and most recent PFT's as noted [...] 200 mg capsule Past Week 06/24/21 -- ProviderRadha MD calcium carbonate/vitamin D3 (CALCIUM 500 + D, D3, ORAL) 10/04/2021 -- -- Radha Romano MD cetirizine (ZyrTEC) 10 mg tablet 10/04/2021 -- -- Radha Romano MD clopidogreL (PLAVIX) 75 mg tablet 10/05/2021 07/15/21 -- Radha Romano MD Eliquis 5 mg tablet 10/05/2021 09/11/21 -- Radha Romano MD dyibaqughjn-ewmiuxdnx-esfmjxai (Trelegy Ellipta) 100-62.5-25 mcg inhaler 10/05/2021 01/21/08 [...] 40 mg capsule 10/05/2021 08/06/21 -- Radha Roamno MD tamsulosin (FLOMAX) 0.4 mg extended release capsule 10/05/2021 07/28/21 -- Radha Romano MD Current Outpatient Medications: ??? acetaminophen (TYLENOL) 325 mg tablet ??? albuterol sulfate (PROAIR HFA INHAL) ??? benzonatate (TESSALON) 200 mg capsule ??? calcium carbonate/vitamin D3 (CALCIUM 500 + D, D3, ORAL) ??? cetirizine (ZyrTEC) 10 mg tablet ??? clopidogreL (PLAVIX) 75 mg tablet ??? Eliquis 5 mg tablet ??? beaxtfcgfkd-mghzsfxpe-nvfbhgmm (Trelegy Ellipta) 100-62.5-25 mcg inhaler ??? furosemide [...] Score: 0 Short Blessed Total Score: 0 RVISING APPRAISER RVISING APPRAISER RVISING APPRAISER RVISING APPRAISER RVISING APPRAISER RVISING APPRAISER RVISING APPRAISER RVISING APPRAISER documented in this encounter Miscellaneous Notes * [...] the entire procedure. Moose Singleton MD PhD Imaging Technician Attending, Head and Neck Surgery Department of Otolaryngology [facility] [phone] (Clinical nurse Janneth Whitaker RN) Pager [phone] RVISING APPRAISER * Op Note - John Torres MD [...] Dr. Singleton ATTENDING SURGEON: John Torres MD MANAGER NIGHT SURGEON: Surgeon(s): Aleksandar Bragg MD ANESTHESIA: General [...] participated for the entirety of the surgery. RVISING APPRAISER * Brief Op Note - Aleksandar Bragg MD - 10/09/2021 9:00 AM CST Operative Progress Note Surgical Team: Surgeon(s) and Role: * Moose Singleton MD - Primary * Aleksandar Bragg MD - Resident - Assisting * John Torres MD - Fellow Anesthesiologist: Mahin Cruz MD MACHINES TECHNICIAN: Nelly Trujillo CRNA; Yemi London CRNA Breaker Off: Selam Maxwell RN; Corina Mcdonnell RN Breaker Off Relief: Kwaku Marks RN; Miguelina Aponte RN [...] SURGICAL PATHOLOGY Moose Singleton MD 10/09/2021 1124 E : LEFT FLOOR [...] Moose Singleton MD at 10/09/2021 12:50 PM SUPERVISING APPRAISER RVISING APPRAISER RVISING APPRAISER documented in this encounter Plan of Treatment Scheduled Orders Name Type Priority Associated Diagnoses Orde r Schedule Gross/Hardware Pathology and Cytology Timed FOM (cancer of floor of mouth) ([facility]) ([facility]) Release Upon Ordering for 1 Occurrences starting 10/09/2021 documented as of this encounter Procedures Procedure Name Priority Date/Time Associated Diagnosis Comments POCT GLUCOSE DEVICE Routine 10/09/2021 1 :19 PM SUPERVISING APPRAISER EGFR Routine 10/09/2021 1:05 PM SUPERVISING APPRAISER DIFFERENTIAL AUTO Routine 10/09/2021 1:0 5 PM SUPERVISING APPRAISER CBC WITH AUTO DIFFERENTIAL Routine 10/09/2021 1:05 PM SUPERVISING APPRAISER PHOSPHORUS Routine 10/09/2021 1:05 PM SUPERVISING APPRAISER MAGNESIUM Routine 10/09/2021 1:05 PM SUPERVISING APPRAISER BASIC METABOLIC PANEL Routine 10/09/2021 1:05 PM SUPERVISING APPRAISER POC BLOOD GAS AND CHEMISTRIES, ARTERIAL Routine 10/09/2021 10:00 AM SUPERVISING APPRAISER SURGICAL PATHOLOGY Routine 10/09/2021 9: 01 AM SUPERVISING APPRAISER FOM (cancer of floor of mouth) ([facility]/HCC) ([facility]) ESOPHAGOSCOPY 10/09/2021 8:25 AM SUPERVISING APPRAISER FOM (cancer of floor of mouth) ([facility]/HCC) ([facility]) Case Notes 10/01: Case approved by Dr. Haydee Aviles to run past 7 pm via E-mail. (DM)10/01: E-mail sent, waiting for permission to run past 7pm. (DM)09/24: Case moved to 10/09 from 10/13 per [place] via phone call. (DM)09/22: Missing DPC, message sent to resource nurse. (DM) FREE FLAP LEG 10/09/2021 8:25 AM SUPERVISING APPRAISER 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) ([facility]) Case Notes 10/01: Case approved by Dr. Haydee Aviles to run past 7 pm via E-mail. (DM)10/01: E-mail sent, waiting for permission to run past 7pm. (DM)09/24: Case moved to 10/09 from 10/13 per [place] via phone call. (DM)09/22: Missing DPC, message sent to resource nurse. (DM) B CHECK SAMPLE STAT 10/09/2021 6:15 AM SUPERVISING APPRAISER documented in this encounter Results * POCT glucose (10/09/2021 1:19 PM SUPERVISING APPRAISER) Glucose, POC 131 70 - 199 mg/dL [facility] Blood 10/09/2021 1:19 PM SUPERVISING APPRAISER 10/09/2021 1:19 PM SUPERVISING APPRAISER us Moose Singleton MD LAB POCT ORDERABLES - DEVICE Final Result [facility] [address] [facility] Department [place] [address] * (ABNORMAL) eGFR (10/09/2021 1:05 PM SUPERVISING APPRAISER) eGFR 71(L) 90 - 130 mL/min/1. 73 [...] of Race in Diagnosing Kidney Disease, JASN 202). The CKD-EPI equation should not be used for patients with unstable renal function and has not been validated in children and those over 70. Current interpretive data was last reviewed 2021. Blood 10/09/2021 1:05 PM SUPERVISING APPRAISER 10/09/2021 1:45 PM SUPERVISING APPRAISER Moose Singleton MD LAB BLOOD ORDERABLES F inal Result [facility] [address] [facility] Department [place] [address] * (ABNORMAL) Differential, auto (10/09/2021 1:05 PM SUPERVISING APPRAISER) Neutrophil abs 9.9(H) 1.7 - 6.5 K/cumm [facility] Imm gran abs 0.1 0.0 - 0.1 K/cumm [facility] Lymphocyte abs 0.9 0.8 - 3.3 K/cumm [...] revised on 2017. Lymphocyte pct 7.8 % [facility] Comment: Interpretive Data Percent cell count reference ranges are not reported, since discordance with absolute values may lead to misinterpretation of CBC data. Current Interpretive Data was last revised on 2017. Monocyte pct 0.7 % [facility] Comment: Interpretive Data Percent cell count reference ranges are not reported, since discordance with absolute values may lead to misinterpretation of CBC data. Current Interpretive Data was last revised on 2017. Eosinophil pct 0.6 % [facility] Comment: Interpretive Data Percent cell count reference [...] revised on 2017. Blood 10/09/2021 1:05 PM SUPERVISING APPRAISER 10/09/2021 1:43 PM SUPERVISING APPRAISER us Moose Singleton MD LAB BLOOD ORDERABLES F inal Result [facility] One [facility] Department [place] [address] * (ABNORMAL) CBC with auto differential (10/09/2021 1:05 PM SUPERVISING APPRAISER) Pathologist [facility] WBC 11.1(H) 3.8 - 9.9 K/cumm [facility] Blood 10/09/2021 1:05 PM SUPERVISING APPRAISER 10/09/2021 1:43 PM SUPERVISING APPRAISER Moose Singleton MD LAB BLOOD ORDERABLES F inal Result Performing Organization Address [facility] Co de Phone Number [facility] [place] [address] * (ABNORMAL) Phosphorus (10/09/2021 1:05 PM SUPERVISING APPRAISER) [facility] Phosphorus, pl 1.6(L) 2.3 - 4.5 mg/dL [facility] Blood 10/09/2021 1:05 PM SUPERVISING APPRAISER 10/09/2021 1:43 PM SUPERVISING APPRAISER Moose Singleton MD LAB BLOOD ORDERABLES F inal Result Performing Organization Address [facility] de Phone Number [facility] [place] [address] * Magnesium (10/09/2021 1:05 PM SUPERVISING APPRAISER) [facility] Magnesium 1.4 1.4 - 2.5 mg/dL [facility] Blood 10/09/2021 1:05 PM SUPERVISING APPRAISER 10/09/2021 1:43 PM SUPERVISING APPRAISER Moose Singleton MD LAB BLOOD ORDERABLES F inal Result Performing Organization Address [facility] de Phone Number [facility] [place] [address] * Basic metabolic panel (10/09/2021 1:05 PM SUPERVISING APPRAISER) [facility] Sodium 139 135 - 145 mmol/L [...] mg/dL [facility] Blood 10/09/2021 1:0 5 PM SUPERVISING APPRAISER 10/09/2021 1:43 PM SUPERVISING APPRAISER Moose Singleton MD LAB BLOOD ORDERABLES F inal Result [facility] One [facility] Department [place] [address] * (ABNORMAL) POC Blood Gas and Chemistries, Arterial - (10/09/2021 10:00 AM SUPERVISING APPRAISER) pH, Art POC 7.36 7.35 - 7.45 [...] (luisa) arterial 100(H) 90 - 95 % [facility] Base excess, POC 2.8 mmol/L [facility] HCO3, Art POC 29 20 - 30 mmol/L [facility] Hct, POC 42.0 41.4 - 51.6 % [facility] O2 Sat, Art POC (Calc) 100 % [facility] Total Hb, POC 13.9 13.8 - 17.2 g/dL [facility] Blood 10/09/2021 10:0 0 AM SUPERVISING APPRAISER 10/09/2021 10:00 AM SUPERVISING APPRAISER us Moose Singleton MD LAB POCT ORDERABLES - DEVICE Final Result [facility] Department [place] [address] * Surgical pathology (10/09/2021 9:01 AM SUPERVISING APPRAISER) Tissue (Soft tissue biopsy) 10/09/2021 9:01 AM SUPERVISING APPRAISER Tissue (Soft tissue biopsy) 10/09/2021 9:42 AM SUPERVISING APPRAISER Comment:FROZEN Tissue (Soft tissue biopsy) 10/09/2021 11:24 AM SUPERVISING APPRAISER Comment:FROZEN Tissue (Soft tissue biopsy) 10/09/2021 11:24 AM SUPERVISING APPRAISER Comment:FROZEN Tissue (Soft tissue biopsy) 10/09/2021 11:25 AM SUPERVISING APPRAISER Comment:FROZEN Tissue (Soft tissue biopsy) 10/09/2021 11:25 AM SUPERVISING APPRAISER Comment:FROZEN Tissue (Soft tissue biopsy) 10/09/2021 11:25 AM SUPERVISING APPRAISER Comment:FROZEN Tissue (Soft tissue biopsy) 10/09/2021 11:25 AM SUPERVISING APPRAISER Comment:FROZEN Tissue (Mandible/maxilla , excision) 10/09/2021 11:45 AM SUPERVISING APPRAISER Narrative PATHOLOGY [facility] - 10/19/2021 1:45 PM CDT EPIC results best viewed via link to PDF [facility] [place] [address] Note to Patients: This report may contain [...] Gender: ??M : ??1950 (Age: 71) Address: ??[address] [place] [address] Hospital #: ??[id number] Taken:10/09/2021 Received:10/09/2021 Reported: 10/19/2021 Patient Type: [facility] Inpatient ?? Service: Otolaryngology Location: [address] Physician(s): ??Moose Singleton M.D., PH.D. Aleksandar [...] for invasion (less than 1 mm) on livestock sales representative sections By Salomón Lopes M.D., Nora Mota M.D. CFR1: Anterior margin - No evidence of malignancy By Salomón Lopes M.D., Hannah R. Krigman, M.D. DFR1: [...] Resident:Morena Andrade M.D., PhD PA(s): [facility] ? CANCER CASE SUMMARY FOR CANCER [...] Surgical Pathology and Flow Cytometry Departments at [facility] as part of an ongoing water quality technician program and in compliance with federally mandated [...] Surgical Pathology and Flow Cytometry Departments of [facility]. ??It has not been cleared or approved by the U. S. Food and Drug Administration. IMAGES AND SCANNED DOCUMENTS, IF INCLUDED, ONLY VIEWABLE IN PDF VERSION OF REPORT Moose Singleton MD LAB PATHOLOGY ORDERABL ES Final Result PATHOLOGY [facility] 3rd Floor [place], [place] [phone] * Check Sample (10/09/2021 6:15 AM SUPERVISING APPRAISER) ABO Rh A Positive [facility] HCLL OTHER 10/09/2021 6:15 AM SUPERVISING APPRAISER 10/09/2021 6:38 AM SUPERVISING APPRAISER Moose Singleton MD LAB BLOOD ORDERABLES F inal Result Performing Organization Address City/[facility] Co de Phone Number [facility] One [facility] Department [place] [address] documented in this encounter Visit Diagnoses Diagnosis [...] Starting on Tue10/09/21 at 1811, Indications: PainIndications:Pain acetaminophen (TYLENOL) tablet 650 mg 650 mg, oral, Every 4 hours PRN, 1st line for pain, Starting on Tue10/09/21 at 1636, Indications: PainIndications:Pain Given 10/09/2021 5:01 PM SUPERVISING APPRAISER 650 mg ampicillin-sulbactam (UNASYN) 3 g/110 mL in sodium chloride 0.9% (premix) 3 g 3 g, intravenous, Administer over 30 Minutes, Every 6 hours scheduled, First dose on Tue10/09/21 at 1715, Indications: Upper Respiratory/HEENT InfectionIndications:Upper Respiratory/HEENT Infection New Bag 10/11/2021 12:04 PM SUPERVISING APPRAISER 3 g New Bag 10/11/2021 5:10 AM SUPERVISING APPRAISER 3 g New Bag 10/11/2021 12:04 AM SUPERVISING APPRAISER 3 g dexAMETHasone (DECADRON) 4 mg/mL injection 10 mg 10 mg, intravenous, Administer over 2 Minutes, Every 8 hours scheduled, First dose on Tue10/09/21 at 1715, For 6 doses Given 10/11/2021 5:10 AM SUPERVISING APPRAISER 10 mg Given 10/10/2021 9:06 PM SUPERVISING APPRAISER 10 mg Given 10/10/2021 2:12 PM SUPERVISING APPRAISER 10 mg enoxaparin (LOVENOX) syringe 40 mg 40 mg, subcutaneous, Daily (for enoxaparin), First dose on Tue10/09/21 at 2100, Indications: Deep Vein Thrombosis PreventionIndications:Deep Vein Thrombosis Prevention Given 10/10/2021 9:06 PM SUPERVISING APPRAISER 40 mg Left Lower Abdomen Given 10/09/2021 9:35 PM SUPERVISING APPRAISER 40 mg Le ft Lower Abdomen tyexsvxezmz-uriuzdswl-hstprpjj (TRELEGY ELLIPTA) 100-62.5-25 mcg inhaler 1 puff 1 puff, inhalation, Daily (incident response engineer), First dose on Tue10/09/21 at 1715, Rinse mouth with water after use. Do not swallow. Given 10/11/2021 8:48 AM SUPERVISING APPRAISER 1 puff Given 10/10/2021 9:18 AM SUPERVISING APPRAISER 1 puff HYDROmorphone (DILAUDID) injection 0.4 mg 0.4 mg, intravenous, Administer over 2 Minutes, Every 10 min PRN, 1st line for pain, Starting on Tue10/09/21 at 1242, Phase I, Notify Anesthesiologist if total PACU dose reaches 2 mg and pain score 5/10 or more., Indications: PainIndications:Pain Given 10/09/2021 2:05 PM SUPERVISING APPRAISER 0.4 mg Given 10/09/2021 1:46 PM SUPERVISING APPRAISER 0.4 mg Given 10/09/2021 1:01 PM SUPERVISING APPRAISER 0.4 mg Lactated Ringer's (LR) infusion - ADS Override Pull Starting on Tue10/09/21 at 0609, For 1 dose, Created by cabinet override Lactated Ringer's (LR) infusion 30 mL/hr, intravenous, Continuous, Starting on Tue10/09/21 at 0645, Pre-Op Restarted 10/09/2021 11:37 AM SUPERVISING APPRAISER Rate/Dose Verify 10/09/2021 8:20 AM SUPERVISING APPRAISER 30 mL/h r Restarted 10/09/2021 7:35 AM SUPERVISING APPRAISER oxyCODONE (ROXICODONE) 1 mg/mL oral solution 5 mg 5 mg, oral, Every 4 hours PRN, 2nd line for pain, Starting on Tue10/09/21 at 1811, May administer 1 hour after 1st line agent for uncontrolled or increasing pain., Indications: PainIndications:Pain oxyCODONE (ROXICODONE) tablet 5 mg 5 mg, oral, Every 4 hours PRN, 2nd line for pain, Starting on Tue10/09/21 at 1636, May administer 1 hour after 1st line agent for uncontrolled or increasing pain., Indications: PainIndications:Pain Given 10/09/2021 5:01 PM SUPERVISING APPRAISER 5 mg pantoprazole (PROTONIX) 4 mg/mL injection 40 mg 40 mg, intravenous, Administer over 2 Minutes, Daily, First dose on Tue10/09/21 at 1845, For IV Push administration for adults- 40 mg vial: add 10 mL of sodium chloride 0.9% to achieve a final concentration of 4 mg/mL, Indications: Treatment of Non-Bleeding Gastric DisorderIndications:Treatment of Non-Bleeding Gastric Disorder Given 10/11/2021 8:48 AM SUPERVISING APPRAISER 40 mg Given 10/10/2021 9:21 AM SUPERVISING APPRAISER 40 mg sodium chloride 0.9% flush 0.5-20 mL 0.5-20 mL, intra-catheter, Every 8 hours scheduled, First dose on Tue10/09/21 at 1715, Flush volume based on line type and size. Given 10/10/2021 2:12 PM SUPERVISING APPRAISER 10 mL Given 10/10/2021 5:22 AM SUPERVISING APPRAISER 10 mL Given 10/09/2021 9:39 PM SUPERVISING APPRAISER 10 mL sodium chloride 0.9% infusion 100 mL/hr, intravenous, Continuous, Starting on Tue10/09/21 at 1315 Rate/Dose Verify 10/11/2021 8:00 AM SUPERVISING APPRAISER 100 mL/hr 100 mL/hr Rate/Dose Verify 10/11/2021 7:00 AM SUPERVISING APPRAISER 100 mL/hr 100 mL/ hr Rate/Dose Verify 10/11/2021 6:15 AM SUPERVISING APPRAISER 100 mL/hr 100 mL/ hr documented in this encounter Discontinued Medications Medication Sig Discontinue Reason Start Date End Da te metoprolol XL (TOPROL-XL) 50 mg extended release tabletIndications:for HR Take 50 mg by mouth every morning Stop Taking at Discharge 06/27/2021 10/11/2021 documented as of this encounter Active and Recently Administered Medications Times are shown in SUPERVISING APPRAISER. Scheduled Medication Order 10/09/2021 10/10/2021 10/11/2021 ampicillin-sulbactam [...] Tue10/09/21 at 1715, Indications: Upper Respiratory/HEENT Infection 181 (Not Given - Provider: Melinda Drew RN - Reason: Other)2330 (New Bag - Provider: Malcom Kat RN) 0519 (New Bag - Provider: Malcom Kat RN)1159 (New Bag - Provider: Rosita Andrade RN)1727 (New Bag - Provider: Rosita Andrade RN) 0004 (New Bag - Provider: Malcom Kat RN)0510 (New Bag - Provider: Malcom Kat RN)1204 (New Bag - Provider: Rosita Andrade RN) dexAMETHasone (DECADRON) 4 mg/mL injection 10 mg 10 mg, intravenous, Administer over 2 Minutes, Every 8 hours scheduled, First dose on Tue10/09/21 at 1715, For 6 doses 1815 (Not Given - Provider: Melinda Drew RN - Reason: Other)2135 (Given - Provider: Malcom Kat RN) 0519 (Given - Provider: Malcom Kat RN)1412 (Given - Provider: Rosita Andrade RN)2106 (Given - Provider: Malcom Kat RN) 0510 (Given - Provider: Malcom Kat RN) enoxaparin (LOVENOX) syringe 40 mg 40 mg, subcutaneous, Daily (for enoxaparin), First dose on Tue10/09/21 at 2100, Indications: Deep Vein Thrombosis Prevention 2134 (Given - Provider: Malcom Kat RN) 2105 (Given - Provider: Malcom Kat RN) lmrpsystpnw-uclqnapfw-hfs anter (TRELEGY ELLIPTA) 100-62.5-25 mcg inhaler 1 puff 1 puff, inhalation, Daily (incident response engineer), First dose on Tue10/09/21 at 1715, Rinse [...] Provider: Melinda Drew RN - Reason: Other) 0921 (Given - Provider: Rosita Andrade RN) 0848 (Given - Provider: Rosita Andrade RN) sodium chloride 0.9% flush 0.5-20 mL 0.5-20 mL, intra-catheter, Every 8 hours scheduled, First dose on Tue10/09/21 at 1715, Flush volume based on line type and size. 1815 (Not Given - Provider: Melinda Drew RN [...] Trujillo CRNA)1346 (Due)1425 (Stopped - Provider: Corina Nina RN) sodium chloride 0.9% infusion (CANCELED) 100 mL/hr, intravenous, Continuous, Starting on Tue10/09/21 at 1315 1425 (New Bag - Provider: Corina Nina RN)2022 (Canceled Entry - Provider: Malcom Kat RN) 0059 (New Bag - Provider: Malcom Kat RN)0125 (Rate/Dose Verify - Provider: Malcom Kat RN)0700 [...] 2 puff, inhalation, Every 4 hours PRN (incident response engineer), wheezing, shortness of breath, Starting on Tue10/09/21 at 1636 HYDROmorphone (DILAUDID) injection 0.4 mg (CANCELED) 0.4 mg, intravenous, Administer over 2 Minutes, Every 10 min PRN, 1st line for pain, Starting on Tue10/09/21 at 1242, Phase I, Notify Anesthesiologist if total PACU dose reaches 2 mg and pain score 5/10 or more., Indications: Pain 1301 (Given - Provider: Kiki Limon, KIA)1346 (Given - Provider: Kiki Limon, KIA)1405 (Given - Provider: Corina Nina RN) lidocaine-EPINEPHrine (XYLOCAINE with EPI) 1 %-1:100,000 injection (CANCELED) As needed, Starting on Tue10/09/21 at 1106, Intra-Op, Indications: Administration of Local Anesthesia 1106 (Given - Provider: Aleksandar Bragg MD) oxyCODONE (ROXICODONE) 1 mg/mL oral [...] g/mL oral solution 650 mg 1 10/09/2021 albuterol HFA (PROVENTIL HFA ,VENTOLIN HFA,PROAIR HFA) 90 mcg/actuation inhaler 2 puff 1 10/09/2021 ampicillin-sulbactam (UNASYN ) 3 g/110 mL in sodium chloride 0.9% (premix) 3 g 1 10/09/2021 diphenhydrAMINE (BENADRYL) injection 25 mg 1 10/09/2021 haloperidol (HALDOL) injection 1 mg 1 10/09 heparin 5,000 units in sodiu m chloride 0.9% 250 mL 2 10/09/2021 lidocaine-EPINEPHrine (XYLOC PEREZ with EPI) 1 %-1:100,000 injection 1 10/09/2021 metoprolol XL (TOPROL-XL) ex tended release tablet 50 mg 1 10/09/2021 naloxone (NARCAN) 0.4 mg/mL injection 0.04-0.4 mg 1 10/09/2021 ondansetron (ZOFRAN) injection 4 mg 1 10/09 oxyCODONE (ROXICODONE) 1 mg/ mL oral solution 5 mg 1 10/09/[address] (PROTONIX) e xtended release tablet 40 mg 1 10/09/2021 papaverine injection 1 10/09/2021 sodium chloride 0.9% flush 0.5-20 mL 2 11/2021 sodium chloride 0.9% irrigation 1 tamsulosin (FLOMAX) extended release capsule 0.4 mg 1 10/09/2021 Consult Count Last Ordered Date First Orde red Date PHARMACY COMMUNICATION 1 10/09/2021 documented in this encounter Care Teams Press Supervisor Relationship Specialty Start Date End Date Liliana May MD [address] [facility] [address] [place] [address] PCP - General Family Medicine 01/01/21 Moose Singleton MD [address] [facility] [address] [place] [address] Consulting Physician Otolaryngology 09/27/21 documented as of this encounter
--- OUTSIDE RECORDS SUMMARY | 2024-08-08 21:31 | XMS_ITS | Encounter Summary ---
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) Procedures CT Neck Soft Tissue W Contrast Moose Singleton MD [address] [place] [address] Phone: tel: fax: [address] [phone] Referral ID Status Reason Start Date Expiration Date Visits Re quested Visits Authorized [id number] Closed 09/28/2021 10/28/2022 1 1 T ORGANIZER Reason for Visit * MRI/CAT/PET Scan (Routine) - Closed Specialty Diagnoses / Procedures Referred By Contac t Referred To Contact Radiology Diagnoses 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 [address] [place] [address] Referral ID Status Reason Start Date Expiration Date Visits Re quested Visits Authorized [id number] Closed 09/21/2021 10/21/2022 1 1 Encounter Details Date Type Department Care Team (Latest Contact Info) Description 09/28/2021 8:43 AM EVENT ORGANIZER - 09/28/2021 11:59 PM EVENT ORGANIZER Hospital Encounter [facility] [address] [place] [address] Moose Singleton MD [address] [place], [place] [id number] FOM (cancer of floor of mouth) ([facility]/HCC) ([facility]) Discharge Disposition: Discharge to home [...] CONTRAST Schedule Routine, Read Routine (OP Routine) 09/28/2021 10:00 AM EVENT ORGANIZER FOM (cancer of floor of mouth) ([facility]) ([facility]) CT SOFT TISSUE NECK W CONTRAST Schedule Routine, Read Routine (OP Routine) 09/28/2021 10:00 AM EVENT ORGANIZER 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) (HCC) POCT CREATININE - DEVICE Routine 09/28/2021 9:04 AM EVENT ORGANIZER documented in this encounter Results * CT Neck Soft Tissue W Contrast (09/28/2021 10:00 AM EVENT ORGANIZER) Anatomical Region Laterality Modality Head and Neck N/A Computed Tomogra phy 09/28/2021 12:0 2 PM EVENT ORGANIZER Impressions 09/28/2021 3:32 PM EVENT ORGANIZER 1. ??No abnormally enhancing soft tissue identified in the floor of the mouth. No cervical lymphadenopathy. 2. ??Skin soft tissue thickening with exophytic appearing lesions in the right supraorbital region and in the neck soft tissues at the level of C1. ??These likely represent skin tags, however recommend direct correlation with visualization. Dictated by: Andrew Persaud MD The radiology attending physician has personally reviewed this study, and had reviewed and/or edited this written report and agrees with it. Electronically signed by: Marlon Nation 09/28/2021 3:32 PM EVENT ORGANIZER EXAMINATION: CT of the neck with contrast HISTORY: History of floor of the mouth cancer. TECHNIQUE: CT of the neck was performed according to standard protocol after the uneventful administration of intravenous contrast. Contrast information: 120 mL Optiray-350 COMPARISON: None available. FINDINGS: Dental fillings are noted with streak artifact the obscures portions of the exam. Within the limitations, no abnormally enhancing soft tissue lesion is identified. ??There is no erosion of the mandible seen. [...] are normal. The limited view of the [place] is unremarkable. Other than a [...] tissues which likely represents a skin tag. ??A few other areas of skin thickening and protrusion are noted in the bilateral posterior neck soft tissues at the level of C1. ??A cystic subcutaneous lesion in the midline of [...] CT chest with contrast for further details. Procedure Note Marlon Choudhury MD PhD - 09/28/2021 EXAMINATION: CT of the neck with contrast HISTORY: History of floor of the mouth cancer. TECHNIQUE: CT of the neck was performed according to standard protocol after the uneventful administration of intravenous contrast. Contrast information: 120 mL Optiray-350 COMPARISON: None available. FINDINGS: Dental fillings are noted with streak [...] are normal. The limited view of the [place] is unremarkable. Other than a [...] tags, however recommend direct correlation with visualization. Dictated by: Andrew Persaud MD The radiology attending physician has personally reviewed this study, and had reviewed and/or edited this written report and agrees with it. Electronically signed by: Marlon Choudhury Moose Cornelio Singleton MD IMG CT PROCEDURES Ernestine l Result * CT Chest W Contrast (09/28/2021 10:00 AM EVENT ORGANIZER) Anatomical Region Laterality Modality Body N/A Computed Tomogra phy 09/28/2021 11:0 8 AM EVENT ORGANIZER Impressions 09/28/2021 12:53 PM EVENT ORGANIZER 1. ??Severe centrilobular emphysema with an expansile complex cystic [...] can be reevaluated on the next follow-up. Dictated by: Yesenia Ivory M.D. The radiology attending physician has personally reviewed this study, and had reviewed and/or edited this written report and agrees with it. Electronically signed by: Garth Rowe M.D. 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 TECHNIQUE: ??Transaxial computed tomographic images of the chest were obtained with intravenous contrast according to the standard protocol after the uneventful administration of 120 mL Opti-Ray 350 intravenous contrast. COMPARISON: None available. FINDINGS: ?? Heart size is normal. Small pericardial effusion. Multivessel coronary artery calcifications. Left-sided three-vessel branching aortic arch. Thoracic aorta is of normal caliber with atherosclerotic calcification. No central pulmonary embolism. Severe bilateral centrilobular emphysema. There is a complex expansile cystic area with multiple areas of thickening in the left upper lobe that measures up to 6 cm x 5.2 cm. There is volume loss and thickening likely representing inflammatory changes in the posterior right upper lobe. No pneumothorax or pleural effusion. There is a partially calcified pulmonary nodule measuring up to 2.0 cm in the anterior segment of the right upper lobe. Central airways are patent. There is an 8 mm calcification in the right thyroid lobe adjacent to a 9 mm hypoattenuating nodule. Included portions of the upper abdomen demonstrate contrast in the renal collecting systems. There is a cyst in the right kidney lower pole. Atherosclerotic calcification of the visualized abdominal aorta. Bone windows demonstrate no suspicious osseous lesion. Multilevel degenerative disc disease. 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 TECHNIQUE: Transaxial computed tomographic images of the chest were obtained with intravenous contrast according to the standard protocol after the uneventful administration of 120 mL Opti-Ray 350 intravenous contrast. COMPARISON: None available. FINDINGS: Heart size is normal. Small pericardial effusion. Multivessel coronary artery calcifications. Left-sided three-vessel branching aortic arch. Thoracic aorta is of normal caliber with atherosclerotic calcification. No central pulmonary embolism. Severe bilateral centrilobular emphysema. There is a complex expansile cystic area with multiple areas of thickening in the left upper lobe that measures up to 6 cm x 5.2 cm. There is volume loss and thickening likely representing inflammatory changes in the posterior right upper lobe. No pneumothorax or pleural effusion. There is a partially calcified pulmonary nodule measuring up to 2.0 cm in the anterior segment of the right upper lobe. Central airways are patent. There is an 8 mm calcification in the right thyroid lobe adjacent to a 9 mm hypoattenuating nodule. Included portions of the upper abdomen demonstrate contrast in the renal collecting systems. There is a cyst in the right kidney lower pole. Atherosclerotic calcification of the visualized abdominal aorta. Bone windows demonstrate no suspicious osseous lesion. Multilevel degenerative disc disease. IMPRESSION: 1. Severe centrilobular emphysema with an [...] can be reevaluated on the next follow-up. Dictated by: Yesenia Ivory M.D. The radiology attending physician has personally reviewed this study, and had reviewed and/or edited this written report and agrees with it. Electronically signed by: Garth Rowe M.D. Moose Singleton MD IMG CT PROCEDURES Ernestine l Result * POCT creatinine (09/28/2021 9:04 AM EVENT ORGANIZER) Creatinine POC 1.1 0.7 - 1.3 mg/dL [facility] Blood 09/28/2021 9:04 AM EVENT ORGANIZER 09/28/2021 9:04 AM EVENT ORGANIZER Moose Singleton MD LAB POCT ORDERABLES - DEVICE Final Result 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 neoplasm of floor of mouth, part unspecified documented in this encounter Administered Medications Inactive Administered Medications - up to 3 most recent administrations Medication Order MAR Action Action Date Dose Rate Site ioversoL (OPTIRAY 350) syringe syringe 125 mL 125 mL, intravenous, Once in imaging, contrast, Starting on 09/28/21 at 0945, For 1 dose Contrast Given 09/28/2021 10:17 AM EVENT ORGANIZER 120 mL documented in this encounter Orders Medications Ordered That José Manuel ht Not Have Been Administered Count Last Ordered Date First Ordered Date ioversoL (OPTIRAY 350) syrin ge syringe 125 mL 1 09/28/2021 documented in this encounter Care Teams Raw Material Planner Relationship Specialty Start Date End Date Liliana May MD [address] [place] [address] PCP - General Family Medicine 01/01/21 Moose Singleton MD [address] [place] [address] Consulting Physician Otolaryngology 09/27/21 documented as of this encounter
--- OUTSIDE RECORDS SUMMARY | 2024-08-08 21:31 | XMS_ITS | Encounter Summary ---
Author Organization [facility] Address [address] [place] [address] Phone Care Team Providers Care Iron Installer Name Role Phone Liliana May MD Primary Care Provider Moose Singleton MD Unavailable [phone] Reason for Referral * Diagnostic Imaging (Routine) - Closed Specialty Diagnoses / Procedures Referred By Johanna t Referred To Contact Diagnoses Thyroid nodule Procedures US Thyroid Moose Singleton MD [address] [place] [address] Phone: tel: fax: [address] [phone] Referral ID Status Reason Start Date Expiration Date Visits Re quested Visits Authorized [id number] Closed 09/29/2021 10/29/[address] Encounter Details Date Type Department Care Team (Late st Contact Info) Description 09/29/2021 Orders Only [facility] - [facility] [address] [facility] [address] [place] [address] [place] [id number] Moose Singleton MD [address] [place] [address] Thyroid nodule (Primary Dx) Social History Tobacco Use Types Packs/Day Years Used Date Smoking Tobacco: Never Sex and Gender Information Value Date Recorded Sex Assigned at Not on file Legal Sex Male 8:41 AM CDT Gender Identity Not on file Sexual Orientation Not on file documented as of this encounter Plan of Treatment Not on file documented as of this encounter Results * US Thyroid (10/01/2021 1:42 PM ARTIST CONSULTANT) Anatomical Region Laterality Modality Head and Neck N/A Ultrasound 10/01/2021 1:57 PM ARTIST CONSULTANT Impressions 10/01/2021 2:39 PM ARTIST CONSULTANT 1. Follow-up thyroid ultrasound in one year is recommended for the right thyroid nodules. Dictated by: Edgardo Zamora M.D. The radiology attending physician has personally reviewed this study, and had reviewed and/or edited this written report and agrees with it. Electronically signed by: Reinier Reese M.D. 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 Prior Biopsy: No Patient Risk Factors: None Prior Ultrasound: ??None FINDINGS: The thyroid is normal in size. [...] seen in the central or lateral neck. Procedure Note Reinier Reese MD PhD - 10/01/2021 EXAMINATION: THYROID SONOGRAM HISTORY: Floor of mouth [...] signed by: Reinier Reese M.D. , PHD us Moose Cornelio Singleton MD IMG US PROCEDURES Ernestine l Result documented in this encounter Visit Diagnoses Diagnosis Thyroid nodule- Primary Nontoxic uninodular goiter Thyroid nodule Nontoxic uninodular goiter documented in this encounter Care Teams Iron Installer Relationship Specialty Start Date End Date Liliana May MD [address] [address] PCP - General Family Medicine 01/01/21 Moose Singleton MD [address] [facility] [address] [place] [address] Consulting Physician Otolaryngology 09/27/21 documented as of this encounter
--- OUTSIDE RECORDS SUMMARY | 2024-08-08 21:31 | XMS_ITS | Encounter Summary ---
Author Organization [facility] Address [address] [place] [address] Care Team Providers Care Hospice Coordinator Name Role Phone Yue Lennon MD Primary Care Provider Reason for Visit * Cardiology (Routine) - Closed Specialty Diagnoses / Procedures Referred By Johanna perdomo Referred To Contact Diagnoses Congestive heart failure, unspecified HF chronicity, unspecified heart failure type (HCC) Acute dyspnea Procedures Transthoracic Echo Complete W Doppler/CF Yue Lennon MD [address] [place] [address] Phone: tel: fax: [facility] Referral ID Status Reason Start Date Expiration Date Visits Re quested Visits Authorized [id number] Closed 01/01/2021 01/31/2022 1 1 Encounter Details Date Type Department Care Team (Latest Contact Info) Description 01/27/2021 11:15 AM CDT Ancillary Procedure [facility] Cardiology [address] [place] [address] Congestive heart failure, unspecified HF chronicity, unspecified heart failure type (CMS/HCC); Acute dyspnea Social History Tobacco Use Types Packs/Day Years [...] Procedure Name Priority Date/Time Associated Diagnosis Comments TRANSTHORACIC ECHO (TTE) COMPLETE W DOPPLER/CF W CONTRAST Routine 01/27/2021 12:10 PM CDT Congestive heart failure, unspecified HF chronicity, unspecified heart failure type (CMS/HCC) Acute dyspnea documented in this encounter Results * TRANSTHORACIC ECHO (TTE) COMPLETE W DOPPLER/CF W CONTRAST (01/27/2021 12:10 PM CDT) Anatomical Region Laterality Modality Ultrasound 01/27/2021 10:4 3 AM CDT Narrative 01/27/2021 2:55 PM CDT [facility] Cardiology [address] [facility] [address], [place] [address] [address], [place] [address] P:[phone] P:[phone] Echocardiographic Report Patient Name: CHILO JI : 1950 Study Date: 01/27/2021 10:43:41 AM Gender: M Tech: Location: [place] Ref.Provider: YUE LENNON Height(Cm): 183 BSA: 1.94 Weight(Kg): 72.58 Heart Rate: 73 BP: 117/66 Quality: Definity contrast agent used to enhance endocardial border definition Order Provider: YUE LENNON Procedures: Echocardiographic Report: Transthoracic echocardiogram with complete 2D, M-Mode, color Doppler examination and Definity contrast. Indications: Congestive Heart Failure, and Dyspnea. Measurements: 2D/M Mode ?Doppler ? Measurement ?Value ?Normal Range ? Measurement ?Value ?Normal Range ? EF Mod ? 34 ?BARBARA ?1.63 ? [ 2.00 - 4.00 ] cm2 ? EF MM ?47 ? [ 55 - 70 ] % ?AV Mean PG ? 6 ?mmHg ? LVIDd MM ? 5.33 ? [ 3.90 - 5.30 ] cm ? AV Peak Ishmael ?1.58 ? m/s ? LVIDs MM ? 4.08 ? [ 2.30 - 3.90 ] cm ? AV Peak PG ? 10 ? mmHg ? LVPWd MM ? 1.25 ? [ 0.60 - 1.00 ] cm ? AV VTI ? 0.29 ? cm ? IVSd MM ?1.33 ? [ 0.60 - 0.90 ] cm ? LVOT Diam ?2.26 ? [ 1.70 - 2.10 ] cm ? LA Dimension MM ?4.92 ? [ 2.70 - 3.80 ] cm ? LVOT Peak Ishmael ?0.64 ? [ 0.70 - 1.10 ] m/s ? AoR Diam MM ?3.75 ? [ 2.60 - 3.70 ] cm ? LVOT VTI ? 0.13 ? cm ? LA Volume Index ?35.00 ?[ 16.00 - 28.00 ] cc/m2 ?MV E Peak Ishmael ?0.98 ? [ 0.60 - 1.30 ] m/s ? ACS MM ? 1.83 ? cm ? MV Decel Time ?153 ?[ 150 - 200 ] msec ? PV Peak Ishmael ?0.71 ? [ 0.40 - 0.80 ] m/s ? TR Peak Ishmael ?2.82 ? [ 0.40 - 0.80 ] m/s ? TR Peak PG ? 32 ? mmHg ? RVSP ? 40.00 ?mmHg ? E' ? 0.11 ? E/E' ? 9 ? Findings: Interpretation Site: Exam was interpreted at [facility]. Left Ventricle: Normal left ventricular size. Definity contrast agent used to visually enhance endocardial wall motion and contractility. Lot Number: [id number]. Mild concentric left ventricular hypertrophy. Severe global left ventricular systolic dysfunction. Indeterminate diastolic function. Ejection fraction is visually estimated at 30 %. Right Ventricle: Normal right ventricular size. Normal right ventricular systolic function. Prominent moderator band - normal variant. Left Atrium: There is mild enlargement of left atrium. Right Atrium: There is mild enlargement of right atrium. Atrial Septum: Normal atrial septum. Mitral Valve: Normal appearance of the mitral valve. Mild mitral annular calcification. Mild to moderate mitral valve regurgitation. Aortic Valve: Mild aortic stenosis. Peak gradient of 10.0 mmHg. Mean gradient of 6.0 mmHg. Valve area of 1.63 cm2. Aortic cusps appear mildly calcified. Aortic cusps appear mildly restricted. Trileaflet aortic valve. Mild aortic valve regurgitation. Tricuspid Valve: Normal appearance of the tricuspid valve. Mild pulmonary hypertension based on right ventricular systolic pressure. Estimated peak RVSP is 40 mmHg. Mild tricuspid regurgitation. Pulmonic Valve: Pulmonic valve not well visualized. Trivial regurgitation in the pulmonic valve. Pericardium: Normal pericardium with no significant pericardial effusion. Aorta: Normal aortic root. No aortic root dilation. Mild aortic root calcification. IVC: Dilated IVC with respiratory collapse consistent with elevated right atrial pressure (10-15 mmHg). Conclusions: Normal left ventricular size. Definity contrast [...] block. Technically difficult study with limited views. Electronically Signed By: Adela Taylor MD 2021-01-27 14:55:34 CDT Procedure Note Martin Taylor MD - 01/27/2021 [facility] Cardiology [address] [facility] [address], [place] [address] [address] [facility] [address], [place] [address] P:[phone] P:[phone] Echocardiographic Report Patient Name: CHILO JIPatient ID: [id number] : [id number] Date: 01/27/2021 10:43:41 AM Gender: MAccession #: [id number] Tech: GMLocation: [place] Ref.Provider: Ernst LENNON(Cm): 183 BSA: 1.94Weight(Kg): 72.58 Heart Rate: 73BP: 117/66 Quality: Definity contrast agent used to enhance endocardial borderdefinitionOrder Provider: YUE LENNON Procedures: Echocardiographic Report: Transthoracic echocardiogram with complete 2D, M-Mode, color Dopplerexamination and Definity contrast. Indications: Congestive Heart Failure, and Dyspnea. Measurements: 2D/M Mode Doppler Measurement Value Normal Range MeasurementValue Normal Range EF Mod 34 AVA1.63 [ 2.00 - 4.00 ] cm2 EF MM 47 [ 55 - 70 ] % AV Mean PG 6mmHg LVIDd MM 5.33 [ 3.90 - 5.30 ] cm AV Peak Vel1.58 m/s LVIDs MM 4.08 [ 2.30 - 3.90 ] cm AV Peak PG 10mmHg LVPWd MM 1.25 [ 0.60 - 1.00 ] cm AV VTI0.29 cm IVSd MM 1.33 [ 0.60 - 0.90 ] cm LVOT Diam2.26 [ 1.70 - 2.10 ] cm LA Dimension MM 4.92 [ 2.70 - 3.80 ] cm LVOT Peak Vel0.64 [ 0.70 - 1.10 ] m/s AoR Diam MM 3.75 [ 2.60 - 3.70 ] cm LVOT VTI0.13 cm LA Volume Index 35.00 [ 16.00 - 28.00 ] cc/m2 MV E Peak Vel0.98 [ 0.60 - 1.30 ] m/s ACS MM 1.83 cm MV Decel Opws362 [ 150 - 200 ] msec PV Peak Vel0.71 [ 0.40 - 0.80 ] m/s TR Peak Vel2.82 [ 0.40 - 0.80 ] m/s TR Peak PG 32mmHg RVSP40.00 mmHg E'0.11 E/E' 9 Findings: Interpretation Site: Exam was interpreted at [facility]. Left Ventricle: Normal left ventricular size. Definity contrast agent used to visuallyenhance endocardial wall motion and contractility. Lot Number: [id number]. Mildconcentric left ventricular hypertrophy. Severe global left ventricular systolicdysfunction. Indeterminate diastolic function. Ejection fraction is visually estimatedat 30 %. Right Ventricle: Normal right ventricular size. Normal right ventricular systolic function.Prominent moderator band - normal variant. Left Atrium: There is mild enlargement of left atrium. Right Atrium: There is mild enlargement of right atrium. Atrial Septum: Normal atrial septum. Mitral Valve: Normal appearance of the mitral valve. Mild mitral annular calcification.Mild to moderate mitral valve regurgitation. Aortic Valve: Mild aortic stenosis. Peak gradient of 10.0 mmHg. Mean gradient of 6.0mmHg. Valve area of 1.63 cm2. Aortic cusps appear mildly calcified. Aortic cusps appearmildly restricted. Trileaflet aortic valve. Mild aortic valve regurgitation. Tricuspid Valve: Normal appearance of the tricuspid valve. Mild pulmonary hypertensionbased on right ventricular systolic pressure. Estimated peak RVSP is 40 mmHg. Mildtricuspid regurgitation. Pulmonic Valve: Pulmonic valve not well visualized. Trivial regurgitation in the pulmonicvalve. Pericardium: Normal pericardium with no significant pericardial effusion. Aorta: Normal aortic root. No aortic root dilation. Mild aortic rootcalcification. IVC: Dilated IVC with respiratory collapse consistent with elevated rightatrial pressure (10-15 mmHg). Conclusions: Normal left ventricular size. Definity contrast agent used to visuallyenhance endocardial wall motion and contractility. Lot Number: [id number]. Mildconcentric left ventricular hypertrophy. Severe global left ventricular systolicdysfunction. Indeterminate diastolic function. Ejection fraction is visually estimatedat 30 %. There is mild enlargement of left atrium. Normal appearance of the mitral valve. Mild mitral annular calcification.Mild to moderate mitral valve regurgitation. Mild aortic stenosis. Peak gradient of 10.0 mmHg. Mean gradient of 6.0mmHg. Valve area of 1.63 cm2. Aortic cusps appear mildly calcified. Aortic cusps appearmildly restricted. Trileaflet aortic valve. Mild aortic valve regurgitation. Normal appearance of the tricuspid valve. Mild pulmonary hypertensionbased on right ventricular systolic pressure. Estimated peak RVSP is 40 mmHg. Mildtricuspid regurgitation. Probable atrial flutter with variable AV block. Technically difficult study with limited views. Electronically Signed By: Adela Taylor MD 2021-01-27 14:55:34 CDT us Yue Lennon MD CV ECHO PROCEDURES Ernestine l Result documented in this encounter Visit Diagnoses Diagnosis Congestive heart failure, unspecified HF chronicity, unspecified heart failure type (HCC) Acute dyspnea documented in this encounter Administered Medications Inactive Administered Medications - up to 3 most recent administrations Medication Order MAR Action Action Date Dose Rate Site perflutren lipid (DEFINITY) 1.5 mL in sodium chloride 0.9% 10 mL syringe 1-10 mL, intravenous, Once in imaging, contrast, Starting on 01/27/21 at 1153, For 1 dose Contrast Given 01/27/2021 12:28 PM CDT 1 mL documented in this encounter Orders Medications Ordered That José Manuel ht Not Have Been Administered Count Last Ordered Date First Ordered Date perflutren lipid (DEFINITY) 1.5 mL in sodium chloride 0.9% 10 mL syringe 1 01/27/2021 documented in this encounter Care Teams Hospice Coordinator Relationship Specialty Start Date End Date Yue Lennon MD [address] [place] [id number] PCP - General Family Medicine 01/01/21 documented as of this encounter
--- OUTSIDE RECORDS SUMMARY | 2024-08-08 21:31 | XMS_ITS | Encounter Summary ---
Author Organization [facility] Address [address] [place] [address] Care Team Providers Care Pickers Material Handlers Name Role Phone Liliana May MD Primary Care Provider Moose Singleton MD Unavailable [phone] Reason for Referral * Diagnostic Imaging (Routine) - Closed Specialty Diagnoses / Procedures Referred By Johanna perdomo Referred To Contact Diagnoses Thyroid nodule Procedures US Thyroid Moose Singleton MD [address] [address] Phone: tel: fax: [address] [phone] Referral ID Status Reason Start Date Expiration Date Visits Re quested Visits Authorized [id number] Closed 09/29/2021 10/29/2022 1 1 R CROSSING SUPERVISOR Reason for Visit * Diagnostic Imaging (Routine) - Closed Specialty Diagnoses / Procedures Referred By Johanna perdomo Referred To Contact Diagnoses Thyroid nodule Procedures US Thyroid Moose Singleton MD [address] [place] [address] Phone: tel: fax: [address] [phone] Referral ID Status Reason Start Date Expiration Date Visits Re quested Visits Authorized [id number] Closed 09/29/2021 10/29/2022 1 1 Encounter Details Date Type Department Care Team (Latest Contact Info) Description 10/01/2021 9:25 AM RIVER CROSSING SUPERVISOR - 10/01/2021 11:59 PM RIVER CROSSING SUPERVISOR Hospital Encounter [facility] [address] [place] [address] Moose Singleton MD [address] [place] [address] Thyroid nodule Discharge Disposition: Discharge to home or self care Social History Tobacco Use Types Packs/Day Years Used Date Smoking Tobacco: Never Sex and Gender Information Value Date Recorded Sex Assigned at Not on file Legal Sex Male 8:41 AM CDT Gender Identity Not on file Sexual Orientation Not on file documented as of this encounter Discharge Instructions * Discharge Instructions* Yarely Kingston RDMS - 10/01/2021 12:40 PM RIVER CROSSING SUPERVISOR Fine Needle Aspiration Biopsy WHAT YOU NEED TO KNOW: You may be sore or have bruising or swelling for a few days. Do not breastfeed for 24 to 48 hours if you received contrast liquid. The contrast liquid may harm your baby. DISCHARGE INSTRUCTIONS: Seek care immediately if: ?? Blood soaks through your bandage. ?? Your bruise suddenly gets larger and feels hard. ?? You have severe pain where the biopsy was taken. Contact your healthcare provider if: ?? You have a fever or chills. ?? Your biopsy site is red, swollen, or draining pus. ?? You have nausea or are vomiting. ?? Your skin is itchy, swollen, or you have a rash. ?? Your pain does not get better after you take pain medicine. ?? You have questions or concerns about your condition or care. Medicines: You may need any of the following: ?? NSAIDs , such as ibuprofen, help decrease swelling, pain, and fever. This medicine is available with or without a doctor's order. NSAIDs can cause stomach bleeding or kidney problems in certain people. If you take blood thinner medicine, always ask your healthcare provider if NSAIDs are safe foryou. Always read the medicine label and follow directions. ?? Acetaminophen decreases pain and fever. It is available without a doctor's order. Ask how much to take and how often to take it. Follow directions. Read the labels of all other medicines you are using to see if they also contain acetaminophen, or ask your doctor or pharmacist. Acetaminophen can cause liver damage if not taken correctly. Do not use more than 4 grams (4,000 milligrams) total of acetaminophen in one day. ?? Prescription pain medicine may be given. Ask your healthcare provider how to take this medicine safely. Some prescription pain medicines contain acetaminophen. Do not take other medicines that contain acetaminophen without talking to your healthcare provider. Too much acetaminophen may cause liver damage. Prescription pain medicine may cause constipation. Ask your healthcare provider how to prevent or treat constipation. ?? Take your medicine as directed. Contact your healthcare provider if you think your medicine is not helping or if you have side effects. Tell him or her if you are allergic to any medicine. Keep a list of the medicines, vitamins, and herbs you take. Include the amounts, and when and why you take them. Bring the list or the pill bottles to follow-up visits. Carry your medicine list with you in case of an emergency. Care for your biopsy site as directed: If you have a tight-fitting bandage, you can remove it in 24to 48 hours, or as directed. Ask your healthcare provider when your biopsy site can get wet. Carefully wash around the site with soap and water. It is okay to let soap and water gently run over your biopsy site. Do not scrub the site. Dry the area and put on new, clean bandages as directed. Change your bandages when they get wet or dirty. Check your biopsy site every day for signs of infection such as redness, swelling, or pus. Do not put powders or lotions on your biopsy site. Self-care: ?? Apply ice on your biopsy site for 15 to 20 minutes every hour or as directed. Use an ice pack, or put crushed ice in a plastic bag. Cover it with a towel before you apply it to your skin. Ice helps prevent tissue damage and decreases swelling and pain. ?? Rest as directed. Do not lift anything heavier than 5 pounds, play sports, or exercise. These activities may cause bleeding. Short walks around the house are okay. Ask your healthcare provider when you can return to your normal activities. ?? Drink plenty of liquids as directed. Liquids help flush contrast liquid from your body. Ask how much liquid to drink each day and which liquids are best for you. Follow up with your healthcare provider as directed: Write down your questions so you remember to ask them during your visits. ?? 2017 [employer] ([employer]) Information is for End User's use only and may not be sold, redistributed or otherwise used for commercial purposes. All illustrations and images included in CareNotes?? are the copyrighted property of [employer]. or [employer]. The above information is an educational assistant teacher only. It is not intended as medical advice for individual conditions or treatments. Talk to your doctor, nurse or pharmacist before following any medical regimen to see if it is safe and effective for you. R CROSSING SUPERVISOR documented in this encounter Medications at Time [...] for 14 days 28 tablet 10/11/2021 2 acetaminophen (TYLENOL) 500 mg [...] Procedure Name Priority Date/Time Associated Diagnosis Comments US THYROID Schedule Routine, Read Routine (OP Routine) 10/01/2021 1:42 PM RIVER CROSSING SUPERVISOR Thyroid nodule documented in this encounter Results * US Thyroid (10/01/2021 1:42 PM RIVER CROSSING SUPERVISOR) Anatomical Region Laterality Modality Head and Neck N/A Ultrasound 10/01/2021 1:57 PM RIVER CROSSING SUPERVISOR Impressions 10/01/2021 2:39 PM RIVER CROSSING SUPERVISOR 1. Follow-up thyroid ultrasound in one year is recommended for the right thyroid nodules. Dictated by: Edgardo aZmora M.D. The radiology attending physician has personally reviewed this study, and had reviewed and/or edited this written report and agrees with it. Electronically signed by: Reinier Reese M.D. , PHD Narrative 10/01/2021 2:39 PM RIVER CROSSING SUPERVISOR EXAMINATION: THYROID SONOGRAM HISTORY: ??Floor of mouth [...] signed by: Reinier Reese M.D. , PHD Moose Singleton MD IMG US PROCEDURES Ernestine l Result documented in this encounter Visit Diagnoses Diagnosis Thyroid nodule Nontoxic uninodular goiter documented in this encounter Care Teams Pickers Material Handlers Relationship Specialty Start Date End Date Liliana May MD [address] [place] [address] PCP - General Family Medicine 01/01/21 Moose Singleton MD [address] [place] [address] Consulting Physician Otolaryngology 09/27/21 documented as of this encounter
--- OUTSIDE RECORDS SUMMARY | 2024-08-08 21:31 | XMS_ITS | Encounter Summary ---
Author Organization [facility] Address [address] [facility] [address] [place] [address] Care Team Providers Care Sales Team Member Name Role Phone Liliana May MD Primary Care Provider Encounter Details Date Type Department Care Team (Late st Contact Info) Description 05/04/2021 Telephone [facility] Cardiology [address] [facility] [address] [place] [address] Na Covarrubias NP [address] [facility] [address] [place] [address] Social History Tobacco Use Types Packs/Day Years Used Date Smoking Tobacco: Never Assessed Sex and Gender Information Value Date Recorded Sex Assigned at Not on file Legal Sex Male 8:41 AM CDT Gender Identity Not on file Sexual Orientation Not on file documented as of this encounter Miscellaneous Notes * Telephone Encounter - Patrizia Miramontes RN - 05/05/2021 12:26 PM CDT Called pt and scheduled LHC on 05/22 with F at the request of Dr. Gao. Reviewed instructions with pt and he verbalized understanding. * Telephone Encounter - Liliana Muñoz RN - 05/04/2021 2:32 PM CDT Called and requested paperwork to be faxed over. * Telephone Encounter - Deysi Nielson - 05/04/2021 1:45 PM CDT Summer called from Dr. Gao office states he is requesting a left heart cath be scheduled for pt before 05/25/2021. Contact: documented in this encounter Plan of Treatment Not on file documented as of this encounter Visit Diagnoses Not on filedocumented in this encounter Care Teams Sales Team Member Relationship Specialty Start Date End Date Liliana May MD [address] [facility] [address] [place], [place] [id number] PCP - General Family Medicine 01/01/21 documented as of this encounter
--- OUTSIDE RECORDS SUMMARY | 2024-08-08 21:31 | XMS_ITS | Encounter Summary ---
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 tamsulosin (FLOMAX) 0.4 mg extended release capsule Take 0.4 mg by mouth every morning 07/28/2021 losartan (COZAAR) 25 mg tablet Take 25 mg by mouth every morning 06/27/2021 benzonatate (TESSALON) 200 mg capsuleIndications :Cough Take 200 mg by mouth as needed 06/24/2021 predniSONE (DELTASONE) 20 mg tablet 06/24/2021 2 omeprazole (PriLOSEC) 40 mg capsuleIndications :reflux Take 40 mg by mouth every morning 08/06/2021 3 metoprolol XL (TOPROL-XL) 50 mg extended release tabletIndications: for HR Take 50 mg by mouth every morning 06/27/2021 2 furosemide (LASIX) 20 mg tablet Take 20 mg by mouth as needed 06/24/2021 2 doxycycline 100 mg tablet 06/24/2021 2 clopidogreL (PLAVIX) 75 mg tablet Take 75 mg by mouth every morning 07/15/2021 2 Eliquis 5 mg tabletIndications: atrial fibrillation Take 5 mg by mouth 2 (two) times a day 09/11/2021 2 added in this encounter Care Teams Hat Designer Relationship Specialty Start Date End Date Liliana May MD [address] [place] [address] PCP - General Family Medicine 01/01/21 documented as of this encounter
--- OUTSIDE RECORDS SUMMARY | 2024-08-08 21:51 | XMS_ITS | Encounter Summary ---
Author Organization [facility] Address [address] [place] [address]. [place] [address] [place] [address] Care Team Providers Care Decorator Street And Building Name Role Phone Unavailable Primary Care Provider Unavailabl e Encounter Details Date Type Department Care Team (Late st Contact Info) Description 06/26/[address] [facility] [address] [place] [address] Pavel Sanchez MD [address] [place] [address] Social History Tobacco Use Types Packs/Day Years [...]
--- OUTSIDE RECORDS SUMMARY | 2024-08-08 21:51 | XMS_ITS | Encounter Summary ---
Author Organization [facility] Address [address] [place] [address]. [place] [address] [place] [address] Care Team Providers Care Transportation Technician Name Role Phone Unavailable Primary Care Provider Unavailcharmaine e Encounter Details Date Type Department Care Team (Late st Contact Info) Description 08/16/2016 Abstract [facility] [address] [place], [place] [id number] Isacc León MD [address] [facility] [facility] [address] [place] [phone] Social History [...]
--- OUTSIDE RECORDS SUMMARY | 2024-08-08 21:51 | XMS_ITS | Encounter Summary ---
Author Organization [facility] Address [address] [place] [address]. [place] [address] [place] [address] Care Team Providers Care Youth Development Specialist Name Role Phone Unavailable Primary Care Provider Unavailabl e Encounter Details Date Type Department Care Team (Late st Contact Info) Description 06/29/2016 Abstract [facility] Day [facility] [address] [place], [place] [id number] Isacc León MD [address] [facility] [address] [place] [address] Social History [...]
--- OUTSIDE RECORDS SUMMARY | 2024-08-08 21:51 | XMS_ITS | Clinical Summary ---
Author Organization [facility] Address [address] [place] [address]. [place], [place] [address] [place] [address] Care Team Providers Care Top Dyeing Machine Tender Name Role Phone Unavailable Primary Care Provider [...]
--- OUTSIDE RECORDS SUMMARY | 2024-08-08 21:52 | XMS_ITS | Encounter Summary ---
Author Organization [facility] Address [address] [place] [address]. [place], [place] [address] [place] [address] Care Team Providers Care Sharepoint Specialist Name Role Phone Unavailable Primary Care Provider Unavailabl e Encounter Details Date Type Department Care Team (Late st Contact Info) Description 10/13/1998 Abstract [place] [address] , Generic Conversion, Social History Tobacco Use [...]
--- OUTSIDE RECORDS SUMMARY | 2024-08-08 21:52 | XMS_ITS | Encounter Summary ---
Author Organization [facility] Address [address] [place] [address]. [place], [place] [address] [place] [address] Care Team Providers Care Industrial Workers Name Role Phone Unavailable Primary Care Provider Unavailabl e Encounter Details Date Type Department Care Team (Late st Contact Info) Description 10/13/1998 Abstract [place] [address] , Generic Conversion, Social History Tobacco Use [...]
--- OUTSIDE RECORDS SUMMARY | 2024-08-08 21:52 | XMS_ITS | Encounter Summary ---
Author Organization [facility] Address [address] [place] [address]. [place] [address] [place] [address] Care Team Providers Care Production Leader Name Role Phone Unavailable Primary Care Provider Unavailabl e Encounter Details Date Type Department Care Team (Late st Contact Info) Description 05/27/[address] [facility] [address] [place], [place] [address] Pavel Sanchez MD [address] [place] [address] Social History Tobacco Use Types Packs/Day Years [...]
--- OUTSIDE RECORDS SUMMARY | 2024-08-08 21:52 | XMS_ITS | Encounter Summary ---
Author Organization [facility] Address [address] [place] [address]. [place] [address] [place] [address] Care Team Providers Care Transportation Agent Name Role Phone Unavailable Primary Care Provider Unavailabl e Encounter Details Date Type Department Care Team (Late st Contact Info) Description 10/08/1998 [place] [address] Fam Mullins MD [address] [address] Social History Tobacco Use Types Packs/Day Years [...]
--- OUTSIDE RECORDS SUMMARY | 2024-08-08 21:54 | XMS_ITS | Encounter Summary ---
Author Organization [facility] Address [address] [place] [address] Care Team Providers Care Veterinary Anatomist Name Role Phone Unavailable Primary Care Provider Unavailabl e Encounter Details Date Type Department Care Team (Late st Contact Info) Description 06/26/2024 External Device Data [facility] ABSTRACTION Provider, Abstract NO ADDRESS ON FILE Social History Tobacco Use Types Packs/Day Years Used Date Smoking Tobacco: Never Assessed Sex and Gender Information Value Date Recorded Sex Assigned at Male 07/05/2024 10:59 AM ASSISTANT PROFESSOR OF DRAMA Gender Identity Male 07/05/2024 10:59 AM ASSISTANT PROFESSOR OF DRAMA Sexual Orientation Straight 07/05/2024 10 :59 AM ASSISTANT PROFESSOR OF DRAMA documented as of this encounter Plan of Treatment Not on file documented as of this encounter Visit Diagnoses Not on filedocumented in this encounter
--- OUTSIDE RECORDS SUMMARY | 2024-08-08 21:54 | XMS_ITS | Clinical Summary ---
Author Organization [facility] [address] Address [address] [place] [address] Care Team Providers Care Bridge Leverman Name Role Phone Liliana May MD Primary Care Provider Moose Singleton MD Unavailable [phone] Allergies Active Allergy Reactions Criticality Noted Date [...] Completed 10/01/2021 Medical Devices Implanted Type Area Dampener Device Identifier Shelf Expiration Date Model / Serial / Lot Stent N/A: Heart Procedures Procedure Name Priority Date/Time Associated Diagnosis Comments CTA ABDOMINAL AORTA AND BILATERAL ILIOFEMORAL RUNOFF Schedule Routine, Read Routine (OP Routine) 10/01/2021 10:38 AM INFRASTRUCTURE DIRECTOR 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 ??Right lower extremity: There is three-vessel [...] Samson Toro M.D. Narrative 10/01/2021 2:02 PM INFRASTRUCTURE DIRECTOR EXAMINATION: ??CT ANGIOGRAPHY OF THE ABDOMEN, PELVIS, [...] Recently Relevant to Health Maintenance Insurance MEDICARE [employer] MEDICARE [facility] FOR [facility] MEDICARE FOR LIFE Advance Directives For more information, please contact: [phone] * Full Code (Latest Code Status on File) Date Activated Date Inactivated Comments 10/16/2021 7:39 PM 10/18/2021 2:11 PM * Full Code Date Activated Date Inactivated Comments 10/09/2021 4:36 PM 10/11/2021 8:52 PM Care Teams Bridge Leverman Relationship Specialty Start Date End Date Liliana May MD [address] [place] [address] PCP - General Family Medicine 01/01/21 Moose Singleton MD [address] [place] [address] Consulting Physician Otolaryngology 09/27/21
--- OUTSIDE RECORDS SUMMARY | 2024-08-08 21:54 | XMS_ITS | Encounter Summary ---
Author Organization [facility] Address [address] [place] [address] Phone Care Team Providers Care Batch Dumper Name Role Phone Liliana May MD Primary Care Provider Moose Singleton MD Unavailable [phone] Encounter Details Date Type Department Care Team (Late st Contact Info) Description 08/17/2022 Orders Only [facility] ([facility]) - [facility] ENT [address] [facility] Advanced Medicine 11th [place] [address] [place] [address] Moose Singleton MD [address] [place] [address] FOM (cancer of floor of [...] unspecified documented in this encounter Care Teams Batch Dumper Relationship Specialty Start Date End Date Liliana May MD [address] [place] [address] PCP - General Family Medicine 01/01/21 Moose Singleton MD [address] [place] [address] Consulting Physician Otolaryngology 09/27/21 documented as of this encounter
--- OUTSIDE RECORDS SUMMARY | 2024-08-08 21:54 | XMS_ITS | Encounter Summary ---
Author Organization [facility] Address [address] [place] [address] Phone Care Team Providers Care Gas Reverser Name Role Phone Liliana May MD Primary Care Provider Moose Singleton MD Unavailable [phone] Encounter Details Date Type Department Care Team (Late st Contact Info) Description 04/03/2024 Telephone [facility] [address] [facility] Advanced Medicine [address]th [place] [address] [place] [address] Bina Dorantes RN Social History [...] on filedocumented in this encounter Care Teams Gas Reverser Relationship Specialty Start Date End Date Liliana May MD [address] [place] [address] PCP - General Family Medicine 01/01/21 Moose Singleton MD [address] [place] [address] Consulting Physician Otolaryngology 09/27/21 documented as of this encounter
--- OUTSIDE RECORDS SUMMARY | 2024-08-08 21:54 | XMS_ITS ---
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 Past Plans No past plan information found. Radiation Treatments * No radiation treatments are documented for this patient in [facility]. Treatments may have been administered in another system. Lifetime Dose Tracking * Chemical Lifetime Dose Automatic Entry Manual Entr y DLP 3,487 mGycm 3,487 mGycm 0 mGycm
--- OUTSIDE RECORDS SUMMARY | 2024-08-08 21:54 | XMS_ITS | Encounter Summary ---
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) Procedures CT Neck Soft Tissue W Contrast Moose Singleton MD [address] [place] [address] Phone: tel: fax: [facility] [address] [place] [address] Referral ID Status Reason Start Date Expiration Date Visits Re quested Visits Authorized [id number] Closed 04/18/2023 05/17/2024 1 1 Encounter Details Date Type Department Care Team (Late st Contact Info) Description 04/18/2023 Orders Only [facility] - [facility] [address] [facility] [address]th [place] [address] [place] [address] Patrizia Pa, KIA FOAngie (cancer [...] are normal. The limited view of the [place] of [place] is unremarkable. Right lens replacement. [...] are normal. The limited view of the [place] of [place] is unremarkable. Right lens replacement. [...] unspecified documented in this encounter Care Teams Poultry And Fish Butcher Relationship Specialty Start Date End Date Liliana May MD [address] [place] [address] PCP - General Family Medicine 01/01/21 Moose Singleton MD [address] [place] [address] Consulting Physician Otolaryngology 09/27/21 documented as of this encounter
--- OUTSIDE RECORDS SUMMARY | 2024-08-08 21:54 | XMS_ITS | Encounter Summary ---
Author Organization [facility] Address [address] [place] [address] Phone Care Team Providers Care Regulatory Product Manager Name Role Phone Liliana May MD Primary Care Provider Moose Singleton MD Unavailable [phone] Reason for Referral * MRI/CAT/PET Scan (Routine) - Closed Specialty Diagnoses / Procedures Referred By Contac t Referred To Contact Radiology Diagnoses 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) Procedures CT Neck Soft Tissue W Contrast Moose Singleton MD [address] [place] [address] Phone: tel: fax: [facility] 1 [place] [address] Referral ID Status Reason Start Date Expiration Date Visits Re quested Visits Authorized [id number] Closed 08/18/2022 09/17/2023 1 1 RKETING MANAGER Encounter Details Date Type Department Care Team (Late st Contact Info) Description 08/18/2022 Orders Only [facility] [address] [facility] [address]th [place] [address] [place] [address] Moose Singleton MD [address] [place] [address] 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
--- OUTSIDE RECORDS SUMMARY | 2024-08-08 21:54 | XMS_ITS | Encounter Summary ---
Author Organization [facility] Address [address] [place] [address] Care Team Providers Care Demurrage Man Name Role Phone Liliaan May MD Primary Care Provider Moose Singleton MD Unavailable [phone] Reason for Referral * MRI/CAT/PET Scan (Routine) - Closed Specialty Diagnoses / Procedures Referred By Johanna perdomo Referred To Contact Radiology Diagnoses 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) Procedures CT Neck Soft Tissue W Contrast Moose Singleton MD [address] [place] [address] Phone: tel: fax: [address] [address] Referral ID Status Reason Start Date Expiration Date Visits Re quested Visits Authorized [id number] Closed 08/18/2022 09/17/2023 1 1 Reason for Visit * MRI/CAT/PET Scan (Routine) - Closed Specialty Diagnoses / Procedures Referred By Contac leanne Referred To Contact Radiology Diagnoses 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) Procedures CT Neck Soft Tissue W Contrast Moose Singleton MD [address] [place] [address] Phone: tel: fax: [address] [address] Referral ID Status Reason Start Date Expiration Date Visits Re quested Visits Authorized [id number] Closed 08/18/2022 09/17/2023 1 1 Encounter Details Date Type Department Care Team (Latest Contact Info) Description 11/29/2022 10:59 AM CDT - 11/29/2022 11:59 PM CDT Hospital Encounter Radiology 1 [place] [address] FOM (cancer of floor of mouth) ([facility]) Discharge Disposition: Discharge to home or self [...] LAB POCT ORDERABLES - DEVICE Final Result [facility] [place] [address] documented in this encounter Visit Diagnoses Diagnosis [...] 11/07 documented in this encounter Care Teams Demurrage Man Relationship Specialty Start Date End Date Liliana May MD [address] [place] [address] PCP - General Family Medicine 01/01/21 Moose Singleton MD [address] [place] [address] Consulting Physician Otolaryngology 09/27/21 documented as of this encounter
--- OUTSIDE RECORDS SUMMARY | 2024-08-08 21:54 | XMS_ITS | Encounter Summary ---
Author Organization [facility] Address [address] [place] [address] Care Team Providers Care Aircraft General Repair Mechanic Name Role Phone Unavailable Primary Care Provider Unavailabl e Reason for Referral * Respiratory (Routine) - Closed Specialty Diagnoses / Procedures Referred By Johanna perdomo Referred To Contact Diagnoses Chronic obstructive pulmonary disease, unspecified COPD type Procedures PULSE OXIMETRY, WITH EXERCISE Salvador Ansari MD [address] [facility] [facility] [address] [place] [address] Referral ID Status Reason Start Date Expiration Date Visits Re quested Visits Authorized [id number] Closed 07/12/2024 08/12/2025 1 1 CLAMPER Reason for Visit * Respiratory (Routine) - Closed Specialty Diagnoses / Procedures Referred By Johanna perdomo Referred To Contact Diagnoses Chronic obstructive pulmonary disease, unspecified COPD type Procedures PULSE OXIMETRY, WITH EXERCISE Salvador Ansari MD [address] [facility] [address] [place] [address] Referral ID Status Reason Start Date Expiration Date Visits Re quested Visits Authorized [id number] Closed 07/12/2024 08/12/2025 1 1 Encounter Details Date Type Department Care Team (Latest Contact Info) Description 07/12/2024 11:00 AM DOOR CLAMPER - 07/12/2024 11:59 PM DOOR CLAMPER Hospital Encounter [facility] Pulmonary Function [facility] [place] [facility] [address] [facility] [address] [place] [address] Discharge Disposition: Home or Self Care Social History Tobacco Use Types Packs/Day Years Used Date Smoking Tobacco: Former Cigarettes Smokeless Tobacco: Never Sex and Gender Information Value Date Recorded Sex Assigned at Male 07/05/2024 10:59 AM DOOR CLAMPER Gender Identity Male 07/05/2024 10:59 AM DOOR CLAMPER Sexual Orientation Straight 07/05/2024 10 :59 AM DOOR CLAMPER documented as of this encounter Medications at [...] OXIMETRY, WITH EXERCISE Routine 07/12/2024 11:57 AM DOOR CLAMPER Chronic obstructive pulmonary disease, unspecified COPD type documented in this encounter Results * PULSE OXIMETRY, WITH EXERCISE (07/12/2024 11:57 AM DOOR CLAMPER) 07/12/2024 11:5 7 AM DOOR CLAMPER Narrative INTERFACE SYSTEM - 07/12/2024 7:09 PM DOOR CLAMPER ? [facility] ? [address] [facility], [place] [address] ? Test Date: ?2024-07-12 Pat Name: ? CHILO JI ? Department: ?Room: ? Gender: ? M ?Door Installer: ? : ?1950 ? Requested By: ? Order Number: [id number] ? Reading : ?? Melecio Travis ? [...] one stop. Electronically Signed On 07-12-2024 19:09:31 DOOR CLAMPER by Melecio Travis Procedure Note Provider, Historical - 07/12/2024 [facility] [address] [facility], [place] [address] Test Date: 2024-07-12 Pat Name: CHILO JI Department: Room: Gender: M Door Installer: : 1950 Requested By: Order Number: [id number] Reading MD: Melecio Travis Interpretive Statements DIAGNOSIS:COPD INTERPRETATION: Walk study with oxygen titration was performed. Baseline saturation atrest was 100%. Throughout the walk study, saturation was maintained at or above 97% without the need for supplemental oxygen. Over approximately 6minutes, the patient walked 254 meters. IMPRESSION: No evidence of exertional hypoxemia. Patient walked 254 meters with onestop. Electronically Signed On 07-12-2024 19:09:31 DOOR CLAMPER by Melecio Travis Salvador Ansari MD PFT ORDERABLES INTERFACE SYSTEM Refer to clinic/hospital department documented in this encounter Visit Diagnoses Diagnosis Chronic obstructive pulmonary disease, unspecified COPD type documented in this encounter
--- OUTSIDE RECORDS SUMMARY | 2024-08-08 21:54 | XMS_ITS | Encounter Summary ---
Author Organization [facility] Address [address] [place] [address] Care Team Providers Care Copy Editor Name Role Phone Unavailable Primary Care Provider Unavailabl e Reason for Visit * Reason Onset Date Comments Referral 06/20/2024 Encounter Details Date Type Department Care Team (Late st Contact Info) Description 06/20/2024 Telephone [facility] Pulmonology [facility] [address] [place] [address] Salvador Ansari MD [address] [place] [address] Referral Social History Tobacco Use Types Packs/Day Years Used Date Smoking Tobacco: Never Assessed Sex and Gender Information Value Date Recorded Sex Assigned at Male 07/05/2024 10:59 AM MAJOR DONOR COORDINATOR Gender Identity Male 07/05/2024 10:59 AM MAJOR DONOR COORDINATOR Sexual Orientation Straight 07/05/2024 10 :59 AM MAJOR DONOR COORDINATOR documented as of this encounter Miscellaneous Notes * Telephone Encounter - Shanae Anderson - 06/20/2024 1:58 PM CST Received referral for zephyr valve consultation. Records scanned into media. Called and lmom to schedule. R DONOR COORDINATOR documented in this encounter Plan of Treatment Not on file documented as of this encounter Visit Diagnoses Not on filedocumented in this encounter
--- OUTSIDE RECORDS SUMMARY | 2024-08-08 21:54 | XMS_ITS | Referral Summary ---
Author Organization [facility] [address] Address [address] [place] [address] Care Team Providers Care Paper Inserter Name Role Phone Liliana May MD Primary Care Provider Moose Singleton MD Unavailable [phone] Allergies Active Allergy Reactions Criticality Noted Date [...] on file Medical Devices Implanted Type Area Channel Marketing Coordinator Device Identifier Shelf Expiration Date Model / Serial / Lot Stent N/A: Heart Procedures Procedure Name Priority Date/Time Associated Diagnosis Comments CTA ABDOMINAL AORTA AND BILATERAL ILIOFEMORAL RUNOFF Schedule Routine, Read Routine (OP Routine) 10/01/2021 10:38 AM SPECIAL SHOPPER FOM (cancer of floor of mouth) ([facility]/HCC) ([facility]) from Last 3 Months or Most Recently Relevant to Health Maintenance Results * CTA Abdominal Aorta And Bilateral Iliofemoral Runoff (10/01/2021 10:38 AM SPECIAL SHOPPER) Anatomical Region Laterality Modality Body Bilateral Computed Tomogra phy 10/01/2021 11:2 6 AM SPECIAL SHOPPER Impressions 10/01/2021 2:02 PM SPECIAL SHOPPER 1. ??Right lower extremity: There is three-vessel [...] Samson Toro M.D. Narrative 10/01/2021 2:02 PM SPECIAL SHOPPER EXAMINATION: ??CT ANGIOGRAPHY OF THE ABDOMEN, PELVIS, [...] MEDICARE FOR LIFE MEDICARE FOR LIFE MEDICARE [facility] Address: [address] [address] [place] [address] [facility] FOR [facility] Advance Directives For more information, please contact: [phone] * Full Code (Latest Code Status on File) Date Activated Date Inactivated Comments 10/16/2021 7:39 PM 10/18/2021 2:11 PM * Full Code Date Activated Date Inactivated Comments 10/09/2021 4:36 PM 10/11/2021 8:52 PM Care Teams Paper Inserter Relationship Specialty Start Date End Date Liliana May MD [address] [place] [address] PCP - General Family Medicine 01/01/21 Moose Singleton MD [address] [place] [address] Consulting Physician Otolaryngology 09/27/21
--- OUTSIDE RECORDS SUMMARY | 2024-08-08 21:54 | XMS_ITS | Encounter Summary ---
Author Organization [facility] Address [address] [place] [address] Care Team Providers Care Medical Biller Name Role Phone Unavailable Primary Care Provider Unavailabl e Encounter Details Date Type Department Care Team (Late st Contact Info) Description 06/20/[address] [facility] Pulmonology [facility] [address] [place] [address] Salvador Ansari MD [address] [place] [address] Social History Tobacco Use Types Packs/Day Years Used Date Smoking Tobacco: Never Assessed Sex and Gender Information Value Date Recorded Sex Assigned at Male 07/05/2024 10:59 AM COMMERCIAL SALES DIRECTOR Gender Identity Male 07/05/2024 10:59 AM COMMERCIAL SALES DIRECTOR Sexual Orientation Straight 07/05/2024 10 :59 AM COMMERCIAL SALES DIRECTOR documented as of this encounter Plan of Treatment Not on file documented as of this encounter Visit Diagnoses Not on filedocumented in this encounter
--- OUTSIDE RECORDS SUMMARY | 2024-08-08 21:54 | XMS_ITS | Encounter Summary ---
Author Organization [facility] Address [address] [place] [address] Care Team Providers Care Tipple Greaser Name Role Phone Unavailable Primary Care Provider Unavailabl e Reason for Visit * Reason Onset Date Comments Referral 06/26/2024 Encounter Details Date Type Department Care Team (Late st Contact Info) Description 06/26/2024 Telephone [facility] [address] [place] [address] Salvador Ansari MD [address] [place] [address] Referral Social History Tobacco Use Types Packs/Day Years Used Date Smoking Tobacco: Never Assessed Sex and Gender Information Value Date Recorded Sex Assigned at Male 07/05/2024 10:59 AM APPLICATIONS PROJECT MANAGER Gender Identity Male 07/05/2024 10:59 AM APPLICATIONS PROJECT MANAGER Sexual Orientation Straight 07/05/2024 10 :59 AM APPLICATIONS PROJECT MANAGER documented as of this encounter Miscellaneous Notes * Telephone Encounter - Bety Dunham PCA - 07/04/2024 10:05 AM CST Patient scheduled. ICATIONS PROJECT MANAGER * Telephone Encounter - Josefina Ocampo RN - 07/04/2024 9:29 AM APPLICATIONS PROJECT MANAGER Pt called back and said if day and time on 07/12 still available, he can make it. Requests confirmation. ICATIONS PROJECT MANAGER * Telephone Encounter - Bety Dunham PCA - 07/03/2024 3:09 PM CST Patient already has an appt at that time. Is there a different day/time you would like to see him? *Also informed patient about getting records from previous crusher setter. ICATIONS PROJECT MANAGER * Telephone Encounter - Salvador Ansari MD - 07/03/2024 1:37 PM CST Please schedule an office visit on 07/12/2024 at 10 AM. Please note, I do not see any outside records yet, we need to obtain previous pulmonary function testing, CT chest imaging and previous pulmonary consultative reports. CT chest imaging should be brought on a CD with him for his visit ICATIONS PROJECT MANAGER * Telephone Encounter - Shanae Anderson - 06/26/2024 11:50 AM CST Patient being referred for zephyr valve consult. Patient scheduled for first available in November. Records scanned into media. Would you like to see patient for an earlier appt or is first available ok? ICATIONS PROJECT MANAGER documented in this encounter Plan of Treatment Not on file documented as of this encounter Visit Diagnoses Not on filedocumented in this encounter
--- OUTSIDE RECORDS SUMMARY | 2024-08-08 21:54 | XMS_ITS | Clinical Summary ---
Author Organization [facility] Address [address] [place] [address] Phone Care Team Providers Care Prototype Sewer Name Role Phone Unavailable Primary Care Provider [...] Department Care Team Description 07/12/2024 11:00 AM SIMULATION EDUCATOR - 07/12/2024 11:59 PM SIMULATION EDUCATOR Hospital Encounter [facility] Pulmonary Function Medical [address] [place] [address] Discharge Disposition: Home or Self Care 07/12/2024 10:00 AM SIMULATION EDUCATOR Office Visit [facility] [address] [facility] [place] [address] Salvador Ansari MD Chronic obstructive pulmonary disease, unspecified COPD type (Primary Dx); Centrilobular emphysema; Personal history of tobacco use; Preop pulmonary/respirato ry exam; History of oral cancer 06/26/2024 External Device Data STL ABSTRACTION Provider, Abstract 06/26/2024 Telephone [facility] [address] [place] [address] Salvador Ansari MD Referral 06/20/2024 Abstract [facility] [address] [place] [address] Salvador Ansari MD 06/20/2024 Telephone [facility] [address] [place] [address] Salvador Ansari MD Referral from Last 3 Months Social History Tobacco Use Types Packs/Day Years Used Date Smoking Tobacco: Former Cigarettes Smokeless Tobacco: Never Sex and Gender Information Value Date Recorded Sex Assigned at Male 07/05/2024 10:59 AM SIMULATION EDUCATOR Gender Identity Male 07/05/2024 10:59 AM SIMULATION EDUCATOR Sexual Orientation Straight 07/05/2024 10 :59 AM SIMULATION EDUCATOR Last Filed Vital Signs Vital Sign Reading Time Taken Comments Blood Pressure 118/76 07/12/2024 10:06 AM SIMULATION EDUCATOR Pulse 83 07/12/2024 10:06 AM SIMULATION EDUCATOR Temperature - - Respiratory Rate - - Oxygen Saturation 97% 07/12/2024 10:06 AM SIMULATION EDUCATOR Inhaled Oxygen Concentration - - Weight 27.8 kg (61 lb 3.2 oz) 07/12/2024 10:06 A M SIMULATION EDUCATOR Height 182.9 cm (6') 07/12/2024 10:06 AM SIMULATION EDUCATOR Body Mass Index 8.3 07/12/2024 10:06 AM SIMULATION EDUCATOR Plan of Treatment Health Maintenance Due Date [...] OXIMETRY, WITH EXERCISE Routine 07/12/2024 11:57 AM SIMULATION EDUCATOR Chronic obstructive pulmonary disease, unspecified COPD type from Last 3 Months Results * PULSE OXIMETRY, WITH EXERCISE (07/12/2024 11:57 AM SIMULATION EDUCATOR) 07/12/2024 11:5 7 AM SIMULATION EDUCATOR Narrative INTERFACE SYSTEM - 07/12/2024 7:09 PM SIMULATION EDUCATOR ? [facility] ? [address], [place] [address] ? Test Date: ?2024-07-12 Pat Name: ? CHILO JI ? Department: ?Room: ? Gender: ? M ?Training Development Manager: ? : ?1950 ? Requested By: ? Order Number: [id number] ? Reading MD: ?? Melecio Travis ? [...] one stop. Electronically Signed On 07-12-2024 19:09:31 SIMULATION EDUCATOR by Melecio Travis Procedure Note Provider, Historical - 07/12/2024 [facility] [address], [place] [address] Test Date: 2024-07-12 Pat Name: CHILO JI Department: Room: Gender: M Training Development Manager: : 1950 Requested By: Order Number: [id number] Reading MD: Melecio Travis Interpretive Statements DIAGNOSIS:COPD INTERPRETATION: Walk study with oxygen titration was performed. Baseline saturation atrest was 100%. Throughout the walk study, saturation was maintained at or above 97% without the need for supplemental oxygen. Over approximately 6minutes, the patient walked 254 meters. IMPRESSION: No evidence of exertional hypoxemia. Patient walked 254 meters with onestop. Electronically Signed On 07-12-2024 19:09:31 SIMULATION EDUCATOR by Melecio Travis Salvador Ansari MD PFT ORDERABLES INTERFACE SYSTEM Refer to clinic/hospital department from Last 3 Months
--- OUTSIDE RECORDS SUMMARY | 2024-08-08 21:54 | XMS_ITS | Encounter Summary ---
Author Organization 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) Procedures CT Neck Soft Tissue W Contrast Moose Singleton MD [address] [place] [address] Phone: tel: fax: [address] [phone] Referral ID Status Reason Start Date Expiration Date Visits Re quested Visits Authorized [id number] Closed 04/18/2023 05/17/2024 1 1 Reason for Visit * MRI/CAT/PET Scan (Routine) - Closed Specialty Diagnoses / Procedures Referred By Contac leanne Referred To Contact Radiology Diagnoses 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) Procedures CT Neck Soft Tissue W Contrast Moose Singleton MD [address] [place] [address] Phone: tel: fax: [address] [phone] Referral ID Status Reason Start Date Expiration Date Visits Re quested Visits Authorized [id number] Closed 04/18/2023 05/17/2024 1 1 Encounter Details Date Type Department Care Team (Latest Contact Info) Description 04/02/2024 12:41 PM CDT - 04/02/2024 11:59 PM CDT Hospital Encounter [facility] Radiology [address] [place] [address] FOM (cancer of floor of mouth) ([facility]) Discharge Disposition: Discharge to home [...] are normal. The limited view of the [place] is unremarkable. Right lens replacement. [...] are normal. The limited view of the [place] is unremarkable. Right lens replacement. [...] by: Fay Daly M.D. Moose Singleton MD [facility] PROCEDURES Ernestine l Result documented in [...] 03/09 documented in this encounter Care Teams Microbiology Laboratory Manager Relationship Specialty Start Date End Date Liliana May MD [address] [place] [address] PCP - General Family Medicine 01/01/21 Moose Singleton MD [address] [place] [address] Consulting Physician Otolaryngology 09/27/21 documented as of this encounter
--- OUTSIDE RECORDS SUMMARY | 2024-08-08 21:54 | XMS_ITS | Encounter Summary ---
Author Organization [facility] Address [address] [place] [address] Phone Care Team Providers Care Aboriginal Community Council Member Name Role Phone Liliana May MD Primary Care Provider Moose Singleton MD Unavailable [phone] Encounter Details Date Type Department Care Team (Late st Contact Info) Description 04/25/2023 Telephone [facility] - [facility] [address] [facility] 11th [place] [address] [place] [address] Patrizia Pa, RN Social History [...] on filedocumented in this encounter Care Teams Aboriginal Community Council Member Relationship Specialty Start Date End Date Liliana May MD [address] [place] [address] PCP - General Family Medicine 01/01/21 Moose Singleton MD [address] [place] [address] Consulting Physician Otolaryngology 09/27/21 documented as of this encounter
--- OUTSIDE RECORDS SUMMARY | 2024-08-08 21:54 | XMS_ITS | Encounter Summary ---
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) Head and neck cancer (HCC) Procedures CT Neck Soft Tissue W Contrast Jeny Wagner PA [email or web address] [place] [address] Phone: tel: fax: [address] [phone] Referral ID Status Reason Start Date Expiration Date Visits Re quested Visits Authorized [id number] Closed 04/15/2023 05/14/2024 1 1 * MRI/CAT/PET Scan (Routine) - Closed Specialty Diagnoses / Procedures Referred By Contac t Referred To Contact Radiology Diagnoses 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) Head and neck cancer (HCC) Procedures CT Chest W Contrast CT Neck Chest W Contrast Jeny Wagner PA [email or web address] [place] [address] Phone: tel: fax: [address] [phone] Referral ID Status Reason Start Date Expiration Date Visits Re quested Visits Authorized [id number] Closed 11/29/2022 12/29/2023 1 1 Reason for Visit * MRI/CAT/PET Scan (Routine) - Closed Specialty Diagnoses / Procedures Referred By Johanna t Referred To Contact Radiology Diagnoses 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) Head and neck cancer (HCC) Procedures CT Chest W Contrast CT Neck Chest W Contrast Jeny Wagner PA [address] [facility] [address] [place] [address] Phone: tel: fax: [address] [phone] Referral ID Status Reason Start Date Expiration Date Visits Re quested Visits Authorized [id number] Closed 11/29/2022 12/29/2023 1 1 Encounter Details Date Type Department Care Team (Latest Contact Info) Description 04/18/2023 12:08 PM CDT - 04/18/2023 11:59 PM CDT Hospital Encounter [facility] [address] [place] [address] 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 Electronically signed by: Luips Andino M.D. Narrative 04/18/2023 5:13 PM CDT [...] signed by: Lupis Andino M.D. Jeny [facility] [place] PROCEDURES Final Result * CT Chest [...] signed by: Augie Reese M.D. Jeny [facility] [place] PROCEDURES Final Result * POCT creatinine (04/18/2023 12:27 PM CDT) Creatinine POC 1.3 0.7 - 1.3 mg/dL [facility] Blood 04/18/2023 12:2 7 PM CDT 04/18/2023 12:27 PM CDT Moose Singleton MD LAB POCT ORDERABLES - DEVICE Final Result TOSHA GONZALEZ [facility] Department [place] [address] documented in this encounter Visit Diagnoses Diagnosis [...] mL documented in this encounter Care Teams Switchboard Wirer Relationship Specialty Start Date End Date Liliana May MD [address] [place] [address] PCP - General Family Medicine 01/01/21 Moose Singleton MD [address] [place] [address] Consulting Physician Otolaryngology 09/27/21 documented as of this encounter
--- OUTSIDE RECORDS SUMMARY | 2024-08-08 21:54 | XMS_ITS | Encounter Summary ---
Author Organization [facility] Address [address] [place] [address] Phone Care Team Providers Care Special Services Coordinator Name Role Phone Liliana May MD Primary Care Provider Moose Singleton MD Unavailable [phone] Reason for Visit * Reason Comments FOM cancer Encounter Details Date Type Department Care Team (Late st Contact Info) Description 04/18/2023 1:20 PM CDT Office Visit [facility] - [facility] ENT [address] [facility] [facility] [address] [place] [address] [place] [address] Moose Singleton MD [address] [place] [address] Head and neck cancer (HCC) [...] Singleton MD - 04/18/2023 1:20 PM CDT [facility] Department of Otolaryngology Division of Head and Neck Surgery 04/18/2023 Chilo Cross [id number] Referred by: Tavia Med onc: TBD Rad [...] by mouth 2 (two) times a day wznwgsorqba-mqdrzzlly-[id number] (Trelegy Ellipta) 100-62.5-25 mcg inhaler Inhale 1 [...] History Administered Date(s) Administered Influenza, Unspecified 05/14/2021 [facility] (J[employer]) SARS-CoV-2 Vaccination 11/10/2020 [facility] SARS-CoV-2 Monovalent Vaccination (12+ YRS) 07/15/2021 REVIEW [...] are normal. The limited view of the [place] is unremarkable. Other than a [...] limited by streak artifact secondary to dental roman catholic. However no definitive evidence of residual or recurrent enhancing mass in the mouth, and no cervical lymphadenopathy. CT Neck and Chest 08/16/22 IMPRESSION: Evaluation of floor of mouth is limited by streak artifact secondary to dental roman catholic. However no definitive evidence of residual or [...] and reviewed his chest CT from today Mooes Singleton MD PhD Flatbed Truck Driver Attending, Head and Neck Surgery Department of Otolaryngology [facility] [phone] (Clinical nurse Bety Keith) Pager [phone] documented in this encounter Plan of Treatment [...] documented as of this encounter Care Teams Special Services Coordinator Relationship Specialty Start Date End Date Liliana May MD [address] [place] [address] PCP - General Family Medicine 01/01/21 Moose Singleton MD [address] [place] [address] Consulting Physician Otolaryngology 09/27/21 documented as of this encounter
--- OUTSIDE RECORDS SUMMARY | 2024-08-08 21:54 | XMS_ITS | Encounter Summary ---
Author Organization [employer] [facility] Address [address] [place] [address] Care Team Providers Care Sales Account Specialist Name Role Phone Unavailable Primary Care Provider Unavailabl e Reason for Referral * CT Scan (Urgent) - Open Specialty Diagnoses / Procedures Referred By Johanna perdomo Referred To Contact Diagnoses Centrilobular emphysema Procedures CT CHEST HIGH RESOLUTION CT CHEST HIGH RESOLUTION Salvador Ansari MD [address] [place] [address] Referral ID Status Reason Start Date Expiration Date Visits Re quested Visits Authorized [id number] Open 07/12/2024 08/12/2025 1 1 N ELEVATOR MAN * Respiratory (Routine) - Closed Specialty Diagnoses / Procedures Referred By Johanna t Referred To Contact Diagnoses Chronic obstructive pulmonary disease, unspecified COPD type Procedures PULSE OXIMETRY, WITH EXERCISE Salvador Ansari MD [address] [place] [address] Referral ID Status Reason Start Date Expiration Date Visits Re quested Visits Authorized [id number] Closed 07/12/2024 08/12/2025 1 1 N ELEVATOR MAN * Respiratory (Routine) - Authorized Specialty Diagnoses / Procedures Referred By Johanna t Referred To Contact Diagnoses Chronic obstructive pulmonary disease, unspecified COPD type Procedures PULMONARY FUNCTION TEST Salvador Ansari MD [address] [place] [address] [facility] Pulmonary Function [place] [address] [place] [address] Referral ID Status Reason Start Date Expiration Date V isits Requested Visits Authorized [id number] Authorized 07/12/2024 08/12/2025 1 1 N ELEVATOR MAN Reason for Visit * Reason Comments Establish Care Encounter Details Date Type Department Care Team (Late st Contact Info) Description 07/12/2024 10:00 AM GRAIN ELEVATOR MAN Office Visit [facility] Pulmonology [facility] [address] [place] [address] Salvador Ansari MD [address] [place] [address] Chronic obstructive pulmonary disease, unspecified COPD type (Primary Dx); Centrilobular emphysema; Personal history of tobacco use; Preop pulmonary/respirator y exam; History of oral cancer Social History Tobacco Use Types Packs/Day Years Used Date Smoking Tobacco: Former Cigarettes Smokeless Tobacco: Never Sex and Gender Information Value Date Recorded Sex Assigned at Male 07/05/2024 10:59 AM GRAIN ELEVATOR MAN Gender Identity Male 07/05/2024 10:59 AM GRAIN ELEVATOR MAN Sexual Orientation Straight 07/05/2024 10 :59 AM GRAIN ELEVATOR MAN documented as of this encounter Last Filed Vital Signs Vital Sign Reading Time Taken Comments Blood Pressure 118/76 07/12/2024 10:06 AM GRAIN ELEVATOR MAN Pulse 83 07/12/2024 10:06 AM GRAIN ELEVATOR MAN Temperature - - Respiratory Rate - - Oxygen Saturation 97% 07/12/2024 10:06 AM GRAIN ELEVATOR MAN Inhaled Oxygen Concentration - - Weight 27.8 kg (61 lb 3.2 oz) 07/12/2024 10:06 A M GRAIN ELEVATOR MAN Height 182.9 cm (6') 07/12/2024 10:06 AM GRAIN ELEVATOR MAN Body Mass Index 8.3 07/12/2024 10:06 AM GRAIN ELEVATOR MAN documented in this encounter Progress Notes * [...] his candidacyfor bronchoscopic lung volume reduction with Ferdinand endobronchial valve placement has been discussed at [...] candidacy for bronchoscopic lung volume reduction with Ferdinand endobronchial valve placement. Notably, he has a longstanding diagnosis of chronic obstructive pulmonary disease and currently follows with Dr. Carmona ([facility]) as his primary state attorney at [facility] in [place]. 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 without any occupational exposure to [...] Critical Care, Neurocritical Care & Sleep Medicine [facility] [place] [address] Off: [phone] Pager: [phone] N ELEVATOR MAN documented in this encounter Plan of Treatment Scheduled Orders Name Type Priority Associated Diagnoses Orde r Schedule PULMONARY FUNCTION TEST PFT Routine Chronic obstructive pulmonary disease, unspecified COPD type 1 Occurrences starting 07/12/2024 until 07/12/2025 CT CHEST HIGH RESOLUTION Imaging Stat Centrilobular emphysema 1 Occurrences starting 07/12/2024 until 07/12/2025 documented as of this encounter Results * PULSE OXIMETRY, WITH EXERCISE (07/12/2024 11:57 AM GRAIN ELEVATOR MAN) 07/12/2024 11:5 7 AM GRAIN ELEVATOR MAN Narrative INTERFACE SYSTEM - 07/12/2024 7:09 PM GRAIN ELEVATOR MAN ? [facility] ? [address] [place] [address] ? Test Date: ?2024-07-12 Pat Name: ? CHILO JI ? Department: ?Room: ? Gender: ? M ?Rotary Swaging Machine Operator: ? : ?1950 ? Requested By: ? Order Number: [id number] ? Reading : ?? Melecio Travis ? [...] one stop. Electronically Signed On 07-12-2024 19:09:31 GRAIN ELEVATOR MAN by Melecio Travis Procedure Note Provider, Historical - 07/12/2024 [facility] [address] , [place] [address] Test Date: 2024-07-12 Pat Name: CHILO JI Department: Room: Gender: Rotary Swaging Machine Operator: : 1950 Requested By: Order Number: [id number] Reading MD: Melecio Travis Interpretive Statements DIAGNOSIS:COPD INTERPRETATION: Walk study with oxygen titration was performed. Baseline saturation atrest was 100%. Throughout the walk study, saturation was maintained at or above 97% without the need for supplemental oxygen. Over approximately 6minutes, the patient walked 254 meters. IMPRESSION: No evidence of exertional hypoxemia. Patient walked 254 meters with onestop. Electronically Signed On 07-12-2024 19:09:31 GRAIN ELEVATOR MAN by Melecio Travis Salvador Ansari MD PFT [...]
--- OUTSIDE RECORDS SUMMARY | 2024-08-08 21:54 | XMS_ITS | Encounter Summary ---
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) Procedures CT Chest with Contrast Jeny Wagner PA [address] [place] [address] Phone: tel: fax: [facility] [address] [place] [address] Referral ID Status Reason Start Date Expiration Date V isits Requested Visits Authorized [id number] Authorized 04/02/2024 05/02/2025 1 1 * MRI/CAT/PET Scan (Routine) - Authorized Specialty Diagnoses / Procedures Referred By Contac t Referred To Contact Radiology Diagnoses 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) Procedures CT Soft Tissue Neck with Contrast Jeny Wagner PA [address] [place] [address] Phone: tel: fax: [facility] 1 [facility] [place] [address] Referral ID Status Reason Start Date Expiration Date V isits Requested Visits Authorized [id number] Authorized 04/02/2024 05/02/2025 1 1 Reason for Visit * Reason Comments Follow-up 4 Month Encounter Details Date Type Department Care Team (Late st Contact Info) Description 04/02/2024 2:20 PM CDT Office Visit [facility] ([facility]) - [facility] ENT [address] [facility] Advanced Medicine [address]th [place] [address] [place] [id number] Jeny Wagner PA [address] [facility] [address] [place] [address] FOM (cancer of floor of [...] Wagner PA - 04/02/2024 2:20 PM CDT [facility] ([facility]) - [facility] ENT [address] [facility] [address] [place] [address] [place] [address] Chilo Cross 1950 Transition: Dr. Singleton Chief Complaint: Cancer surveillance Oncology History- Surgery FOM (cancer of floor of mouth) ([facility]) Surgery DIAGNOSIS/TREATMENT/COMPLETION DATE: 1. SCCa [...] List FOM (cancer of floor of mouth) ([facility]) - Primary Overview NAME OF PROCEDURE [...] Routine) FOM (cancer of floor of mouth) ([facility]) Expected: 10/01/2024, Expires: 04/02/2025 CT Chest with Contrast Imaging Schedule Routine, Read Routine (OP Routine) FOM (cancer of floor of mouth) ([facility]) Expected: 10/01/2024, Expires: 04/02/2025 documented as of this encounter Visit Diagnoses Diagnosis FOM (cancer of floor of mouth) ([facility])- Primary Malignant neoplasm of floor of [...] 01/20/2024 added in this encounter Care Teams Feedlot Manager Relationship Specialty Start Date End Date Liliana May MD [address] [place] [address] PCP - General Family Medicine 01/01/21 Moose Singleton MD [address] [place] [address] Consulting Physician Otolaryngology 09/27/21 documented as of this encounter
--- OUTSIDE RECORDS SUMMARY | 2024-08-08 21:54 | XMS_ITS | Encounter Summary ---
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 [address] [place] [address] Phone: tel: fax: [address] [address] Referral ID Status Reason Start Date Expiration Date Visits Re quested Visits Authorized [id number] Closed 11/29/2022 12/29/2023 1 1 Reason for Visit * Reason Comments Follow-up Cancer of floor of m outh Encounter Details Date Type Department Care Team (Late st Contact Info) Description 11/29/2022 1:00 PM CDT Office Visit [facility] - [facility] ENT [address] 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 Singleton Chief Complaint: Cancer surveillance; 3 month follow up Oncology History- Surgery FOM (cancer of floor of mouth) ([facility]) Surgery DIAGNOSIS/TREATMENT/COMPLETION DATE: 1. SCCa with [...] 04/02/2024 added in this encounter Care Teams Tube Draw Helper Relationship Specialty Start Date End Date Liliana May MD [address] [place] [address] PCP - General Family Medicine 01/01/21 Moose Singleton MD [address] [place] [address] Consulting Physician Otolaryngology 09/27/21 documented as of this encounter
--- OUTSIDE RECORDS SUMMARY | 2024-08-08 21:54 | XMS_ITS | Encounter Summary ---
Author Organization [facility] Address [address] [place] [address] Phone Care Team Providers Care Police Sergeant Precinct Name Role Phone Liliana May MD Primary Care Provider Moose Singleton MD Unavailable [phone] Reason for Visit * Reason Onset Date Comments Test Results 04/10/2024 Encounter Details Date Type Department Care Team (Late st Contact Info) Description 04/10/2024 Telephone [facility] ([facility]) - [facility] ENT [address] [facility] Advanced Medicine [address] [place] [address] [place] [address] Miguelina Travis RN Test Results [...] on filedocumented in this encounter Care Teams Police Sergeant Precinct Relationship Specialty Start Date End Date Liliana May MD [address] [place] [address] PCP - General Family Medicine 01/01/21 Moose Singleton MD [address] [place] [address] Consulting Physician Otolaryngology 09/27/21 documented as of this encounter
--- OUTSIDE RECORDS SUMMARY | 2024-08-08 21:55 | XMS_ITS | Encounter Summary ---
Author Organization [facility] Address [address] [facility] [address] [place] [address] Care Team Providers Care Technology Program Manager Name Role Phone Liliana May MD Primary Care Provider Encounter Details Date Type Department Care Team (Late st Contact Info) Description 01/01/2021 Orders Only [facility] Cardiology [address] [place] [address] Provider, MD Radha [address] [place] [address] Social History Tobacco Use Types Packs/Day [...] on filedocumented in this encounter Care Teams Technology Program Manager Relationship Specialty Start Date End Date Liliana May MD [address] [place] [address] PCP - General Family Medicine 01/01/21 documented as of this encounter
--- OUTSIDE RECORDS SUMMARY | 2024-08-08 21:55 | XMS_ITS | Encounter Summary ---
Author Organization [facility] Address [address] [place] [address] Phone Care Team Providers Care Mophead Trimmer And Wrapper Name Role Phone Liliana May MD Primary Care Provider Moose Singleton MD Unavailable [phone] Encounter Details Date Type Department Care Team (Late st Contact Info) Description 11/23/2021 2:20 PM CDT Office Visit [facility] [facility] ([facility]) - [facility] ENT [address] [facility] Advanced Medicine [address]th [place] [address] [place] [address] Moose Singleton MD [address] [place] [address] Head and neck cancer (CMS/HCC) [...] Singleton MD - 11/23/2021 2:20 PM CDT [facility] Department of Otolaryngology Division of Head and Neck Surgery 11/23/2021 Chilo Cross 1950 [id number] Referred by: Tavia Med onc: TBD Rad [...] mouth 2 (two) times a day ??? rjwniaxqhbf-ftudsnfcf-krvcpepr (Trelegy Ellipta) 100-62.5-25 mcg inhaler Inhale 1 [...] Administered ??? Influenza, Unspecified 05/14/2021 ? ? Janalakshmi (J&J) SARS-CoV-2 Vaccination 11/10/2020 ??? Moderna SARS-CoV-2 [...] are normal. The limited view of the [place] is unremarkable. Other than a [...] in 2 mo Moose Singleton MD PhD Steel Pickler Attending, Head and Neck Surgery Department of Otolaryngology [facility] [phone] (Clinical nurse Bety Keith) Pager [phone] documented in this encounter Plan of Treatment Not on file documented as of this encounter Visit Diagnoses Diagnosis Head and neck cancer (HCC)- Primary documented in this encounter Care Teams Mophead Trimmer And Wrapper Relationship Specialty Start Date End Date Liliana May MD [address] [place] [address] PCP - General Family Medicine 01/01/21 Moose Singleton MD [address] [place] [address] Consulting Physician Otolaryngology 09/27/21 documented as of this encounter
--- OUTSIDE RECORDS SUMMARY | 2024-08-08 21:55 | XMS_ITS | Encounter Summary ---
Author Organization [facility] Address [address] [facility] [address] [place] [address] Care Team Providers Care Delivery Driver Assistant Name Role Phone Liliana May MD Primary Care Provider Encounter Details Date Type Department Care Team (Late st Contact Info) Description 05/22/2021 Orders Only [facility] Cardiology [address] [phone] Kofi Umanzor MD [address] [facility] [address] [address] Social History Tobacco Use Types [...] on filedocumented in this encounter Care Teams Delivery Driver Assistant Relationship Specialty Start Date End Date Liliana May MD [address] [facility] [address] [place] [address] PCP - General Family Medicine 01/01/21 documented as of this encounter
--- OUTSIDE RECORDS SUMMARY | 2024-08-08 21:55 | XMS_ITS | Encounter Summary ---
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 CTA Abdominal Aorta And Bilateral Iliofemoral Runoff Moose Singleton MD [address] [place] [address] Phone: tel: fax: [facility] 1 [place] [address] Referral ID Status Reason Start Date Expiration Date Visits Re quested Visits Authorized [id number] Closed 09/28/2021 10/28/2022 1 1 GEMENT ARCHITECT Encounter Details Date Type Department Care Team (Late st Contact Info) Description 09/28/2021 Orders Only [facility] [facility] ([facility]) - [facility] ENT [address] [facility] 11th [place] [address] [place] [address] Bety Keith, KIA 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 ??Right lower extremity: There is three-vessel [...] Samson Toro M.D. Narrative 10/01/2021 2:02 PM MANAGEMENT ARCHITECT EXAMINATION: ??CT ANGIOGRAPHY OF THE ABDOMEN, PELVIS, [...] unspecified documented in this encounter Care Teams Dredge Pumper Relationship Specialty Start Date End Date Liliana May MD [address] [place] [address] PCP - General Family Medicine 01/01/21 Moose Singleton MD [address] [place] [address] Consulting Physician Otolaryngology 09/27/21 documented as of this encounter
--- OUTSIDE RECORDS SUMMARY | 2024-08-08 21:55 | XMS_ITS | Encounter Summary ---
Author Organization [facility] Healthcare Address [address] [place] [address] Care Team Providers Care Pattern Designer Name Role Phone Liliana May MD Primary Care Provider Moose Singleton MD Unavailable [phone] Encounter Details Date Type Department Care Team (Latest Contact Info) Description 10/09/2021 5:56 AM LEGAL ADMINISTRATOR - 10/11/2021 4:47 PM LEGAL ADMINISTRATOR Hospital Encounter [facility] [address] [place] [address] Moose Singleton MD [address] [place] [address] FOM (cancer of floor of mouth) ([facility]/HCC) ([facility]) Discharge Disposition: Discharge to home [...] Comments Blood Pressure 138/64 10/11/2021 2:49 PM LEGAL ADMINISTRATOR Pulse 48 10/11/2021 2:49 PM LEGAL ADMINISTRATOR Temperature 36.6 ??C (97.8 ??F) 10/11/2021 2:00 PM CS T Respiratory Rate 21 10/11/2021 2:49 PM LEGAL ADMINISTRATOR Oxygen Saturation 99% 10/11/2021 2:49 PM LEGAL ADMINISTRATOR Inhaled Oxygen Concentration - - Weight - [...] with 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 - ATHEROSCLEROTIC HEART DISEASE OF [place]GI[place] CORONARY ARTERY WITHOUT ANGINA PECTORIS Other secondary [...] diseases - OTHER RHEUMATIC MULTIPLE VALVE DISEASES [facility] (current) use of antithrombotics/antiplatelets - ADVANCED PRACTICE REGISTERED NURSE (CURRENT) USE OF ANTITHROMBOTICS/ANTIPLATELETS Presence of coronary angioplasty implant and graft - PRESENCE OF CORONARY ANGIOPLASTY IMPLANT AND GRAFT documented in this encounter Discharge Summaries * Cintia Ruffin MD - 10/11/2021 10:38 AM CST Inpatient Discharge Summary BRIEF OVERVIEW Admitting Provider: Moose Singleton MD Discharge Provider: Moose Singleton MD Primary Care Physician at Discharge: Liliana May MD [phone] Admission Date: 10/09/2021 Discharge Date: 10/11/2021 Admission Location: [facility] Problems/Diagnoses: Principal Problem: FOM (cancer [...] Hold metoprolol on discharge - F/u with PCP/live out nanny to restart medication Medical Conditions Present Prior [...] and eliquis 2. Metoprolol -- f/u with live out nanny/PCP Test Results Pending at Discharge: Pending Labs [...] should follow-up with your family doctor or live out nanny on Tuesday to determine whether you should continue this medication. Questions: If you have any concerns or questions, or develop worrisome symptoms such as worsening pain or swelling, bleeding, fever, or vomiting, call your doctor. Use [phone] if you are calling during weekday business hours (8am-5pm Tuesday through Tuesday), otherwise call [phone] and ask for the ENT resident acid correction hand. Discharge Medications: Current Medications TAKE these medications [...] Inhale 1 puff every morning Generic drug: dtvofpbfhfy-mhdpgdqmq-miiadksr * This list has 2 medication(s) that [...] OY 10/30/2021 1:00 PM Scot Pollock MD [facility] Cosigned by Moose Singleton MD at 10/12/2021 8:35 AM LEGAL ADMINISTRATOR L ADMINISTRATOR L ADMINISTRATOR documented in this encounter Discharge Instructions * Discharge Instructions* Corina Mccracken MD - 10/11/2021 2:39 PM LEGAL ADMINISTRATOR ENT Post Operative Discharge Instructions Procedure: L [...] should follow-up with your family doctor or live out nanny on Tuesday to determine whether you should continue this medication. Questions: If you have any concerns or questions, or develop worrisome symptoms such as worsening pain or swelling, bleeding, fever, or vomiting, call your doctor. Use [phone] if you are calling during weekday business hours (8am-5pm Tuesday through Tuesday), otherwise call [phone] and ask for the ENT resident acid correction hand. L ADMINISTRATOR documented in this encounter Medications at Time [...] Destination Discharge to home or self care [facility] documented in this encounter Progress Notes [...] Q8H AMEE enoxaparin, 40 mg, subcutaneous, Daily-2100 vsxmyheqeqt-vpfypdxsi-ikejnnjo, 1 puff, inhalation, Daily (RT) metoprolol XL, [...] - Pain control: Tylenol/PRN oxy - Airway: [place] - Diet: start FLD diet today - [...] Tue - Tue Daytime: ASHLEY Mcgovern at [phone] Mon Daytime (backup Tue-Tue Days): See HYACINTH for [facility] Head & Neck (pw: [email or web address]) Weekends & After 6pm: ENT Consult Cosigned by Moose Singleton MD at 10/12/2021 8:36 AM LEGAL ADMINISTRATOR L ADMINISTRATOR L ADMINISTRATOR * Maria Elena Wise MD - 10/10/2021 [...] Q8H AMEE enoxaparin, 40 mg, subcutaneous, Daily-2100 pdxzkxvtihk-rtqioauid-nqrhfjdr, 1 puff, inhalation, Daily (RT) metoprolol XL, [...] 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) ([facility]) Assessment: 71 y.o. 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 s/p OR WLE, rim mandibulectomy, partial closure with remaining left to heal by secondary intention Plan: #Postoperative care - Pain control: Tylenol/PRN oxy - Airway: [place] - Diet: CLD POD1 in PM -> [...] Tue - Tue Daytime: ASHLEY Mcgovern at [phone] Mon Daytime (backup Tue-Tue Days): See HY[facility]IN[facility] for [facility] Head & Neck (pw: [email or web address]) Weekends & After 6pm: ENT Consult Cosigned by Moose Singleton MD at 10/12/2021 8:36 AM LEGAL ADMINISTRATOR L ADMINISTRATOR L ADMINISTRATOR * Maria Elena Wise MD - 10/09/2021 [...] - Pain control: Tylenol/PRN oxy - Airway: [place] - Diet: NPO -> CLD POD1 in PM -> FLD POD2 in AM - GI ppx: protonix - Abx: unasyn - DVT ppx: lovenox, SCDs, OOB - Cunningham: none Maria Elena Wise MD Otolaryngology - Head & Neck Surgery For questions please reach out to: Tue - Tue Daytime: ASHLEY Mcgovern at [phone] Mon Daytime (backup Tue-Tue Days): See HYACIN[facility] for [facility] Head & Neck (pw: [email or web address]) Weekends & After 6pm: ENT Consult L ADMINISTRATOR documented in this encounter H&P Notes * [...] Moose Singleton MD at 10/09/2021 7:27 AM LEGAL ADMINISTRATOR L ADMINISTRATOR L ADMINISTRATOR Source Note - Breanne Flowers NP - 10/05/2021 9:37 AM LEGAL ADMINISTRATOR Images from the original note were not included. [facility] for Preoperative Assessment and Planning Preoperative Evaluation Record Evaluation type/location: [facility] Planned procedure site: [facility] (Pods 2/3/5/[facility]) Date: 10/05/21 Anesthesia Evaluation Chilo Ji is [...] - Current Rhythm: atrial fibrillation. Pertinent negatives: NM ; CABG ; valve replacement; arrhythmia; pacemaker/ICD; [...] 4 days. Pre-procedure COVID19 testing performed at [facility]. Result pending- to be reviewed by surgeon's office. This patient has a history of atrial fibrillation at LOW risk for perioperative thromboembolic events with a [id number]-OQWk score of 4 and no known history [...] hospitalization 07/2021. Will obtain last OVN from extractor operator solvent process. Preoperative evaluation performed by Breanne Flowers NP [...] verbalizes understanding. >Awaiting labs and OVN from [id number]. Follow-up completed by: Breanne Flowers NP on [...] note Reviewed last OVN from pulmonology in [facility] and most recent PFT's as noted below, [...] tablet 10/05/2021 09/11/21 -- Radha Romano MD mphuacudmgn-nqjjuqbsa-qfatzkrj (Trelegy Ellipta) 100-62.5-25 mcg inhaler 10/05/2021 01/21/08 [...] tablet ??? Eliquis 5 mg tablet ??? ucizpuropyt-bkxyqhgce-kekgoljk (Trelegy Ellipta) 100-62.5-25 mcg inhaler ??? furosemide [...] Score: 0 Short Blessed Total Score: 0 L ADMINISTRATOR L ADMINISTRATOR L ADMINISTRATOR L ADMINISTRATOR L ADMINISTRATOR L ADMINISTRATOR L ADMINISTRATOR L ADMINISTRATOR documented in this encounter Miscellaneous Notes * [...] the entire procedure. Moose Singleton MD PhD Food Service Coordinator Attending, Head and Neck Surgery Department of Otolaryngology [facility] [phone] (Clinical nurse Janneth Whitaker RN) Pager [phone] L ADMINISTRATOR * Op Note - John Torres MD [...] Dr. Singleton ATTENDING SURGEON: John Torres MD RADIOLOGY NURSE SURGEON: Surgeon(s): Aleksandar Bragg MD ANESTHESIA: General [...] participated for the entirety of the surgery. L ADMINISTRATOR * Brief Op Note - Aleksandar Bragg MD - 10/09/2021 9:00 AM CST Operative Progress Note Surgical Team: Surgeon(s) and Role: * Moose Singleton MD - Primary * Aleksandar Bragg MD - Resident - Assisting * John Torres MD - Fellow Anesthesiologist: Mahin Cruz MD EXHAUSTER: Nelly Trujillo CRNA; Yemi London CRNA Contact Acid Plant Operator: Selam Maxwell RN; Corina Mcdonnell RN Contact Acid Plant Operator Relief: Kwaku Marks RN; Miguelina Aponte RN [...] Moose Singleton MD at 10/09/2021 12:50 PM LEGAL ADMINISTRATOR L ADMINISTRATOR L ADMINISTRATOR documented in this encounter Plan of Treatment Scheduled Orders Name Type Priority Associated Diagnoses Orde r Schedule Gross/Hardware Pathology and Cytology Timed FOM (cancer of floor of mouth) ([facility]) ([facility]) Release Upon Ordering for 1 Occurrences starting 10/09/2021 documented as of this encounter Procedures Procedure Name Priority Date/Time Associated Diagnosis Comments POCT GLUCOSE DEVICE Routine 10/09/2021 1 :19 PM LEGAL ADMINISTRATOR EGFR Routine 10/09/2021 1:05 PM LEGAL ADMINISTRATOR DIFFERENTIAL AUTO Routine 10/09/2021 1:0 5 PM LEGAL ADMINISTRATOR CBC WITH AUTO DIFFERENTIAL Routine 10/09/2021 1:05 PM LEGAL ADMINISTRATOR PHOSPHORUS Routine 10/09/2021 1:05 PM LEGAL ADMINISTRATOR MAGNESIUM Routine 10/09/2021 1:05 PM LEGAL ADMINISTRATOR BASIC METABOLIC PANEL Routine 10/09/2021 1:05 PM LEGAL ADMINISTRATOR POC BLOOD GAS AND CHEMISTRIES, ARTERIAL Routine 10/09/2021 10:00 AM LEGAL ADMINISTRATOR SURGICAL PATHOLOGY Routine 10/09/2021 9: 01 AM LEGAL ADMINISTRATOR FOM (cancer of floor of mouth) ([facility]/HCC) ([facility]) ESOPHAGOSCOPY 10/09/2021 8:25 AM LEGAL ADMINISTRATOR FOM (cancer of floor of mouth) ([facility]/HCC) ([facility]) Case Notes 10/01: Case approved by Dr. Haydee vAiles to run past 7 pm via E-mail. (DM)10/01: E-mail sent, waiting for permission to run past 7pm. (DM)09/24: Case moved to 10/09 from 10/13 per [place] via phone call. (DM)09/22: Missing DPC, message sent to resource nurse. (DM) FREE FLAP LEG 10/09/2021 8:25 AM LEGAL ADMINISTRATOR 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) ([facility]) Case Notes 10/01: Case approved by Dr. Haydee Aviles to run past 7 pm via E-mail. (DM)10/01: E-mail sent, waiting for permission to run past 7pm. (DM)09/24: Case moved to 10/09 from 10/13 per [place] via phone call. (DM)09/22: Missing DPC, message sent to resource nurse. (DM) B CHECK SAMPLE STAT 10/09/2021 6:15 AM LEGAL ADMINISTRATOR documented in this encounter Results * POCT glucose (10/09/2021 1:19 PM LEGAL ADMINISTRATOR) Glucose, POC 131 70 - 199 mg/dL [facility] Blood 10/09/2021 1:19 PM LEGAL ADMINISTRATOR 10/09/2021 1:19 PM LEGAL ADMINISTRATOR us Moose Singleton MD LAB POCT ORDERABLES - DEVICE Final Result [facility] Department [place] [address] * (ABNORMAL) eGFR (10/09/2021 1:05 PM LEGAL ADMINISTRATOR) eGFR 71(L) 90 - 130 mL/min/1. 73 m2 [facility] Comment: Interpretive Data Reference Interval [...] last reviewed 2021. Blood 10/09/2021 1:05 PM LEGAL ADMINISTRATOR 10/09/2021 1:45 PM LEGAL ADMINISTRATOR Moose Singleton MD LAB BLOOD ORDERABLES F inal Result [facility] Department [place] [address] * (ABNORMAL) Differential, auto (10/09/2021 1:05 PM LEGAL ADMINISTRATOR) Neutrophil abs 9.9(H) 1.7 - 6.5 K/cumm [facility] Imm gran abs 0.1 0.0 - 0.1 K/cumm [facility] Lymphocyte abs 0.9 0.8 - 3.3 K/cumm [facility] Monocyte abs 0.1(L) 0.2 - 0.8 K/cumm [facility] Eosinophil abs 0.1 0.0 - 0.5 K/cumm [facility] Basophil abs 0.1 0.0 - 0.1 K/cumm [facility] Neutrophil pct 89.8 % [facility] Comment: Confirmed by smear review Interpretive Data Percent cell count reference ranges are not reported, since discordance with absolute values may lead to misinterpretation of CBC data. Current Interpretive Data was last revised on 2017. Imm gran pct 0.5 % [facility] Comment: Interpretive Data Percent cell count reference ranges are not reported, since discordance with absolute values may lead to misinterpretation of CBC data. Current Interpretive Data was last revised on 2017. Lymphocyte pct 7.8 % [facility] Comment: Interpretive Data Percent cell count reference ranges are not reported, since discordance with absolute values may lead to misinterpretation of CBC data. Current Interpretive Data was last revised on 2017. Monocyte pct 0.7 % [facility] Comment: Interpretive Data Percent cell count reference ranges are not reported, since discordance with absolute values may lead to misinterpretation of CBC data. Current Interpretive Data was last revised on 2017. Eosinophil pct 0.6 % [facility] Comment: Interpretive Data Percent cell count reference ranges are not reported, since discordance with absolute values may lead to misinterpretation of CBC data. Current Interpretive Data was last revised on 2017. Basophil pct 0.6 % [facility] Comment: Interpretive Data Percent cell count reference ranges are not reported, since discordance with absolute values may lead to misinterpretation of CBC data. Current Interpretive Data was last revised on 2017. Blood 10/09/2021 1:05 PM LEGAL ADMINISTRATOR 10/09/2021 1:43 PM LEGAL ADMINISTRATOR us Moose Singleton MD LAB BLOOD ORDERABLES F inal Result [facility] Department [place] [address] * (ABNORMAL) CBC with auto differential (10/09/2021 1:05 PM LEGAL ADMINISTRATOR) Pathologist [facility] WBC 11.1(H) 3.8 - 9.9 K/cumm [facility] Hgb 14.0 13.0 - 17.5 g/dL [facility] Hct 42.7 38.9 - 50.3 % [facility] Plt 144(L) 150 - 400 K/cumm [facility] Comment:No clot detected in sample. MPV 10.5 9.1 - 12.3 fL [facility] RBC 4.75 4.30 - 5.80 M/cumm [facility] MCV 89.9 81.3 - 96.4 fL [facility] MCH 29.5 27.1 - 33.3 pg [facility] MCHC 32.8 32.3 - 35.7 g/dL [facility] RDW CV 13.0 11.1 - 14.9 % [facility] RDW SD 43.0 35.7 - 48.1 fL [facility] NRBC abs 0.00 0.00 - 0.01 K/cumm [facility] Blood 10/09/2021 1:05 PM LEGAL ADMINISTRATOR 10/09/2021 1:43 PM LEGAL ADMINISTRATOR Moose Singleton MD LAB BLOOD ORDERABLES F inal Result Performing Organization Address [facility] Co de Phone Number [facility] [place] [address] * (ABNORMAL) Phosphorus (10/09/2021 1:05 PM LEGAL ADMINISTRATOR) [facility] Phosphorus, pl 1.6(L) 2.3 - 4.5 mg/dL [facility] Blood 10/09/2021 1:05 PM LEGAL ADMINISTRATOR 10/09/2021 1:43 PM LEGAL ADMINISTRATOR Moose Singleton MD LAB BLOOD ORDERABLES F inal Result Performing Organization Address [facility] de Phone Number [facility] [place] [address] * Magnesium (10/09/2021 1:05 PM LEGAL ADMINISTRATOR) [facility] Magnesium 1.4 1.4 - 2.5 mg/dL [facility] Blood 10/09/2021 1:05 PM LEGAL ADMINISTRATOR 10/09/2021 1:43 PM LEGAL ADMINISTRATOR Moose Singleton MD LAB BLOOD ORDERABLES F inal Result Performing Organization Address [facility] de Phone Number [facility] [place] [address] * Basic metabolic panel (10/09/2021 1:05 PM LEGAL ADMINISTRATOR) [facility] Sodium 139 135 - 145 mmol/L [facility] Potassium, pl 4.2 3.3 - 4.9 mmol/L [facility] Chloride 103 97 - 110 mmol/L [facility] CO2 27 22 - 32 mmol/L [facility] Anion gap 9 2 - 15 mmol/L [facility] BUN 18 8 - 25 mg/dL [facility] Creatinine 1.12 0.80 - 1.30 mg/dL [facility] Glucose 160 70 - 199 mg/dL [facility] Comment: Interpretive Data Fasting glucose [...] 2017. Calcium 9.0 8.5 - 10.3 mg/dL [facility] Blood 10/09/2021 1:0 5 PM LEGAL ADMINISTRATOR 10/09/2021 1:43 PM LEGAL ADMINISTRATOR Moose Singleton MD LAB BLOOD ORDERABLES F inal Result [facility] Department [place] [address] * (ABNORMAL) POC Blood Gas and Chemistries, Arterial - (10/09/2021 10:00 AM LEGAL ADMINISTRATOR) pH, Art POC 7.36 7.35 - 7.45 [facility] pCO2, Art POC 52(H) 35 - 45 mmHg [facility] pO2, Art POC 221(H) 83 - 108 mmHg [facility] Na, POC 135 135 - 145 mmol/L [facility] K POC 4.8 3.3 - 4.9 mmol/L [facility] Comment: Interpretive Data Unable to assess hemolysis. ??Invitro hemolysis causes falsely elevated potassium. Current Interpretive Data was last revised on 2020. Cl, POC 102 97 - 110 mmol/L [facility] Ionized Ca, POC 4.70 4.50 - 5.10 mg/dL [facility] Glucose, POC 125 70 - 199 mg/dL [facility] Lactate, POC 0.9 0.7 - 2.2 mmol/L [facility] SO2 (luisa) arterial 100(H) 90 - 95 % [facility] Base excess, POC 2.8 mmol/L [facility] HCO3, Art POC 29 20 - 30 mmol/L [facility] Hct, POC 42.0 41.4 - 51.6 % [facility] O2 Sat, Art POC (Calc) 100 % [facility] Total Hb, POC 13.9 13.8 - 17.2 g/dL [facility] Blood 10/09/2021 10:0 0 AM LEGAL ADMINISTRATOR 10/09/2021 10:00 AM LEGAL ADMINISTRATOR us Moose Singleton MD LAB POCT ORDERABLES - DEVICE Final Result [facility] Department [place] [address] * Surgical pathology (10/09/2021 9:01 AM LEGAL ADMINISTRATOR) Tissue (Soft tissue biopsy) 10/09/2021 9:01 AM LEGAL ADMINISTRATOR Tissue (Soft tissue biopsy) 10/09/2021 9:42 AM LEGAL ADMINISTRATOR Comment:FROZEN Tissue (Soft tissue biopsy) 10/09/2021 11:24 AM LEGAL ADMINISTRATOR Comment:FROZEN Tissue (Soft tissue biopsy) 10/09/2021 11:24 AM LEGAL ADMINISTRATOR Comment:FROZEN Tissue (Soft tissue biopsy) 10/09/2021 11:25 AM LEGAL ADMINISTRATOR Comment:FROZEN Tissue (Soft tissue biopsy) 10/09/2021 11:25 AM LEGAL ADMINISTRATOR Comment:FROZEN Tissue (Soft tissue biopsy) 10/09/2021 11:25 AM LEGAL ADMINISTRATOR Comment:FROZEN Tissue (Soft tissue biopsy) 10/09/2021 11:25 AM LEGAL ADMINISTRATOR Comment:FROZEN Tissue (Mandible/maxilla , excision) 10/09/2021 11:45 AM LEGAL ADMINISTRATOR Narrative PATHOLOGY [facility] - 10/19/2021 1:45 PM CDT EPIC results best viewed via link to PDF [facility] of [place] [address] Note to Patients: This report may contain [...] Gender: ??M : ??1950 (Age: 71) Address: ??[address] [place] [address] ??[address] Hospital #: ??[id number] Taken:10/09/2021 Received:10/09/2021 Reported: 10/19/2021 Patient Type: [facility] Inpatient ?? Service: Otolaryngology Location: [address] Physician(s): ??Moose Singleton M.D., PH.D. Aleksandar [...] for invasion (less than 1 mm) on student services representative sections By Salomón Lopes M.D., Nora [...] Resident:Morena Andrade M.D., PhD PA(s): ASH[facility] ? CANCER CASE SUMMARY FOR CANCER [...] Surgical Pathology and Flow Cytometry Departments at [facility] as part of an ongoing software quality analyst program and in compliance with federally mandated [...] Surgical Pathology and Flow Cytometry Departments of [facility]. ??It has not been cleared or approved by the U. S. Food and Drug Administration. IMAGES AND SCANNED DOCUMENTS, IF INCLUDED, ONLY VIEWABLE IN PDF VERSION OF REPORT Moose Singleton MD LAB PATHOLOGY ORDERABL ES Final Result PATHOLOGY [facility] 3rd Floor [place], [place] [phone] * Check Sample (10/09/2021 6:15 AM LEGAL ADMINISTRATOR) ABO Rh A Positive [facility] HCLL OTHER 10/09/2021 6:15 AM LEGAL ADMINISTRATOR 10/09/2021 6:38 AM LEGAL ADMINISTRATOR Moose Singleton MD LAB BLOOD ORDERABLES F inal Result Performing Organization Address [facility] Co de Phone Number [facility] Department [place] [address] documented in this encounter Visit Diagnoses Diagnosis [...] 1636, Indications: PainIndications:Pain Given 10/09/2021 5:01 PM LEGAL ADMINISTRATOR 650 mg ampicillin-sulbactam (UNASYN) 3 g/110 mL in sodium chloride 0.9% (premix) 3 g 3 g, intravenous, Administer over 30 Minutes, Every 6 hours scheduled, First dose on Tue10/09/21 at 1715, Indications: Upper Respiratory/HEENT InfectionIndications:Upper Respiratory/HEENT Infection New Bag 10/11/2021 12:04 PM LEGAL ADMINISTRATOR 3 g New Bag 10/11/2021 5:10 AM LEGAL ADMINISTRATOR 3 g New Bag 10/11/2021 12:04 AM LEGAL ADMINISTRATOR 3 g dexAMETHasone (DECADRON) 4 mg/mL injection 10 mg 10 mg, intravenous, Administer over 2 Minutes, Every 8 hours scheduled, First dose on Tue10/09/21 at 1715, For 6 doses Given 10/11/2021 5:10 AM LEGAL ADMINISTRATOR 10 mg Given 10/10/2021 9:06 PM LEGAL ADMINISTRATOR 10 mg Given 10/10/2021 2:12 PM LEGAL ADMINISTRATOR 10 mg enoxaparin (LOVENOX) syringe 40 mg 40 mg, subcutaneous, Daily (for enoxaparin), First dose on Tue10/09/21 at 2100, Indications: Deep Vein Thrombosis PreventionIndications:Deep Vein Thrombosis Prevention Given 10/10/2021 9:06 PM LEGAL ADMINISTRATOR 40 mg Left Lower Abdomen Given 10/09/2021 9:35 PM LEGAL ADMINISTRATOR 40 mg Le ft Lower Abdomen owuskxyeodu-kzdptjyne-vlwghvtc (TRELEGY ELLIPTA) 100-62.5-25 mcg inhaler 1 puff 1 puff, inhalation, Daily (sexual assault response coordinator), First dose on Tue10/09/21 at 1715, Rinse mouth with water after use. Do not swallow. Given 10/11/2021 8:48 AM LEGAL ADMINISTRATOR 1 puff Given 10/10/2021 9:18 AM LEGAL ADMINISTRATOR 1 puff HYDROmorphone (DILAUDID) injection 0.4 mg 0.4 mg, intravenous, Administer over 2 Minutes, Every 10 min PRN, 1st line for pain, Starting on Tue10/09/21 at 1242, Phase I, Notify Anesthesiologist if total PACU dose reaches 2 mg and pain score 5/10 or more., Indications: PainIndications:Pain Given 10/09/2021 2:05 PM LEGAL ADMINISTRATOR 0.4 mg Given 10/09/2021 1:46 PM LEGAL ADMINISTRATOR 0.4 mg Given 10/09/2021 1:01 PM LEGAL ADMINISTRATOR 0.4 mg Lactated Ringer's (LR) infusion - ADS Override Pull Starting on Tue10/09/21 at 0609, For 1 dose, Created by cabinet override Lactated Ringer's (LR) infusion 30 mL/hr, intravenous, Continuous, Starting on Tue10/09/21 at 0645, Pre-Op Restarted 10/09/2021 11:37 AM LEGAL ADMINISTRATOR Rate/Dose Verify 10/09/2021 8:20 AM LEGAL ADMINISTRATOR 30 mL/h r Restarted 10/09/2021 7:35 AM LEGAL ADMINISTRATOR oxyCODONE (ROXICODONE) 1 mg/mL oral solution 5 [...] pain., Indications: PainIndications:Pain Given 10/09/2021 5:01 PM LEGAL ADMINISTRATOR 5 mg pantoprazole (PROTONIX) 4 mg/mL injection 40 mg 40 mg, intravenous, Administer over 2 Minutes, Daily, First dose on Tue10/09/21 at 1845, For IV Push administration for adults- 40 mg vial: add 10 mL of sodium chloride 0.9% to achieve a final concentration of 4 mg/mL, Indications: Treatment of Non-Bleeding Gastric DisorderIndications:Treatment of Non-Bleeding Gastric Disorder Given 10/11/2021 8:48 AM LEGAL ADMINISTRATOR 40 mg Given 10/10/2021 9:21 AM LEGAL ADMINISTRATOR 40 mg sodium chloride 0.9% flush 0.5-20 mL 0.5-20 mL, intra-catheter, Every 8 hours scheduled, First dose on Tue10/09/21 at 1715, Flush volume based on line type and size. Given 10/10/2021 2:12 PM LEGAL ADMINISTRATOR 10 mL Given 10/10/2021 5:22 AM LEGAL ADMINISTRATOR 10 mL Given 10/09/2021 9:39 PM LEGAL ADMINISTRATOR 10 mL sodium chloride 0.9% infusion 100 mL/hr, intravenous, Continuous, Starting on Tue10/09/21 at 1315 Rate/Dose Verify 10/11/2021 8:00 AM LEGAL ADMINISTRATOR 100 mL/hr 100 mL/hr Rate/Dose Verify 10/11/2021 7:00 AM LEGAL ADMINISTRATOR 100 mL/hr 100 mL/ hr Rate/Dose Verify 10/11/2021 6:15 AM LEGAL ADMINISTRATOR 100 mL/hr 100 mL/ hr documented in this encounter Discontinued Medications Medication Sig Discontinue Reason Start Date End Da te metoprolol XL (TOPROL-XL) 50 mg extended release tabletIndications:for HR Take 50 mg by mouth every morning Stop Taking at Discharge 06/27/2021 10/11/2021 documented as of this encounter Active and Recently Administered Medications Times are shown in LEGAL ADMINISTRATOR. Scheduled Medication Order 10/09/2021 10/10/2021 10/11/2021 ampicillin-sulbactam [...] 2105 (Given - Provider: Malcom Kat RN) drldexuxmsz-wdlquxjms-vlq anter (TRELEGY ELLIPTA) 100-62.5-25 mcg inhaler 1 puff 1 puff, inhalation, Daily (sexual assault response coordinator), First dose on Tue10/09/21 at 1715, Rinse [...] 2 puff, inhalation, Every 4 hours PRN (sexual assault response coordinator), wheezing, shortness of breath, Starting on Tue10/09/21 [...] 10/09/2021 documented in this encounter Care Teams Pattern Designer Relationship Specialty Start Date End Date Liliana May MD [address] [facility] [address] [place] [address] PCP - General Family Medicine 01/01/21 Moose Singleton MD [address] [facility] [address] [place] [address] Consulting Physician Otolaryngology 09/27/21 documented as of this encounter
--- OUTSIDE RECORDS SUMMARY | 2024-08-08 21:55 | XMS_ITS | Encounter Summary ---
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) Procedures CT Soft Tissue Neck with Contrast Moose Singleton MD [address] [place] [address] Phone: tel: fax: [facility] [address] [place] [address] Referral ID Status Reason Start Date Expiration Date Visits Re quested Visits Authorized [id number] Closed 02/01/2022 03/03/2023 1 1 Reason for Visit * Reason Comments Follow-up Encounter Details Date Type Department Care Team (Late st Contact Info) Description 02/01/2022 11:40 AM CDT Office Visit [place] [facility] ([facility]) - [facility] ENT [address] [facility] 11th [place] [address] [place] [address] Moose Singleton MD [address] [place] [address] 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) [...] Body Mass Index 20.67 10/16/2021 12:39 PM COUNTER INSTALLER documented in this encounter Progress Notes * Moose Singleton MD - 02/01/2022 11:40 AM CDT [facility] Department of Otolaryngology Division of Head and Neck Surgery 02/01/2022 Chilo Cross 1950 [id number] Referred by: Tavia Med onc: TBD Rad [...] mouth 2 (two) times a day ??? egxjmbwqvnb-zylhzyxig-vjqazbbn (Trelegy Ellipta) 100-62.5-25 mcg inhaler Inhale 1 [...] are normal. The limited view of the [place] is unremarkable. Other than a [...] CT neck now Moose Singleton MD PhD Vending Technician Attending, Head and Neck Surgery Department of Otolaryngology [facility] [phone] (Clinical nurse Bety Keith) Pager [phone] documented in this encounter Plan of Treatment Not on file documented as of this encounter Results * CT Soft Tissue Neck with Contrast (05/17/2022 1:43 PM CDT) Anatomical Region Laterality Modality Head and Neck N/A Computed Tomogra phy 05/17/2022 4:4 3 PM CDT Impressions 05/17/2022 5:54 PM CDT Evaluation of floor of mouth limited by streak artifact secondary to dental jewish. However no definitive evidence of residual or [...] are normal. The limited view of the [place] is unremarkable. Right lens replacement, [...] are normal. The limited view of the [place] is unremarkable. Right lens replacement, [...] limited by streak artifact secondary to dental jewish. However no definitive evidence of residual or [...] unspecified documented in this encounter Care Teams Straight Line Press Setter Relationship Specialty Start Date End Date Liliana May MD [address] [place] [address] PCP - General Family Medicine 01/01/21 Moose Singleton MD [address] [place] [address] Consulting Physician Otolaryngology 09/27/21 documented as of this encounter
--- OUTSIDE RECORDS SUMMARY | 2024-08-08 21:55 | XMS_ITS | Encounter Summary ---
Author Organization [facility] Address [address] [place] [address] Phone Care Team Providers Care Tobacco Checkout Clerk Name Role Phone Liliana May MD Primary Care Provider Moose Singleton MD Unavailable [phone] Encounter Details Date Type Department Care Team (Late st Contact Info) Description 10/26/2021 3:20 PM CDT Office Visit [place] [facility] ([facility]) - [facility] ENT [address] [facility] 11th [place] [address] [place] [address] Moose Singleton MD [address] [place] [address] Head and neck cancer (CMS/HCC) [...] Singleton MD - 10/26/2021 3:20 PM CDT [facility] Department of Otolaryngology Division of Head and Neck Surgery 10/26/2021 Chilo Cross 1950 [id number] Referred by: Tavia Med onc: TBD Rad [...] mouth 2 (two) times a day ??? tuulcwbfyue-lgmdviior-evqalwlx (Trelegy Ellipta) 100-62.5-25 mcg inhaler Inhale 1 [...] Administered ??? Influenza, Unspecified 05/14/2021 ? ? [employer] ([employer]) SARS-CoV-2 Vaccination 11/10/2020 ??? Moderna SARS-CoV-2 [...] are normal. The limited view of the [place] is unremarkable. Other than a [...] in 3 mo Moose Singleton MD PhD Lease Attendant Attending, Head and Neck Surgery Department of Otolaryngology [facility] [phone] (Clinical nurse Bety Keith) Pager [phone] documented in this encounter Plan of Treatment Not on file documented as of this encounter Visit Diagnoses Diagnosis Head and neck cancer (HCC)- Primary documented in this encounter Care Teams Tobacco Checkout Clerk Relationship Specialty Start Date End Date Liliana May MD [address] [place] [address] PCP - General Family Medicine 01/01/21 Moose Singleton MD [address] [place] [address] Consulting Physician Otolaryngology 09/27/21 documented as of this encounter
--- OUTSIDE RECORDS SUMMARY | 2024-08-08 21:55 | XMS_ITS | Encounter Summary ---
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) Procedures CT Chest W Contrast CT Neck Chest W Contrast Moose Singleton MD [address] [facility] [address] [place] [address] Phone: tel: fax: [facility] 1 [place] [address] Referral ID Status Reason Start Date Expiration Date Visits Re quested Visits Authorized [id number] Closed 08/16/2022 09/15/2023 1 1 ING FRAME TENDER Reason for Visit * Reason Comments FOM Encounter Details Date Type Department Care Team (Late st Contact Info) Description 08/16/2022 11:00 AM DRAWING FRAME TENDER Office Visit [place] [facility] ([facility]) - [facility] ENT [address] [facility] 11th [place] [address] [place] [address] Moose Singleton MD [address] [place] [address] 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) [...] (161 lb 3.2 oz) 08/16/2022 11:10 AM DRAWING FRAME TENDER Height - - Body Mass Index 21.86 10/16/2021 12:39 PM DRAWING FRAME TENDER documented in this encounter Progress Notes * Moose Singleton MD - 08/16/2022 11:00 AM CST [facility] Department of Otolaryngology Division of Head and Neck Surgery 08/16/2022 Chilo Cross 1950 [id number] Referred by: Tavia Med onc: TBD Rad [...] a day famotidine (PEPCID) 40 mg tablet dlesfvwpije-udauiofqf-iupnpijh (Trelegy Ellipta) 100-62.5-25 mcg inhaler Inhale 1 [...] Unspecified 05/14/2021 Chuck (J&J) SARS-CoV-2 Vaccination 11/10/2020 [facility] SARS-CoV-2 Vaccination (12+ YRS) 07/15/2021 REVIEW [...] are normal. The limited view of the [place] is unremarkable. Other than a [...] limited by streak artifact secondary to dental baptism. However no definitive evidence of residual or recurrent enhancing mass in the mouth, and no cervical lymphadenopathy. CT Neck and Chest 08/16/22 IMPRESSION: Evaluation of floor of mouth is limited by streak artifact secondary to dental baptism. However no definitive evidence of residual or [...] CT from today Moose Singleton MD PhD Hat Cutter Attending, Head and Neck Surgery Department of Otolaryngology [facility] [phone] (Clinical nurse Bety Keith) Pager [phone] ING FRAME TENDER documented in this encounter Plan of Treatment Not on file documented as of this encounter Results * CT Chest W Contrast (08/16/2022 1:39 PM DRAWING FRAME TENDER) Anatomical Region Laterality Modality Body N/A Computed Tomogra phy 08/16/2022 2:03 PM DRAWING FRAME TENDER Impressions 08/16/2022 5:58 PM DRAWING FRAME TENDER 1. ??No definitive evidence for intrathoracic metastatic [...] Suzanne Cody MD Narrative 08/16/2022 5:58 PM DRAWING FRAME TENDER EXAMINATION: ??Computed tomography of the chest with [...] 11/29/2022 added in this encounter Care Teams Drier Belt Conveyor Relationship Specialty Start Date End Date Liliana May MD [address] [address] PCP - General Family Medicine 01/01/21 Moose Singleton MD [address] [facility] [address] [place] [id number] Consulting Physician Otolaryngology 09/27/21 documented as of this encounter
--- OUTSIDE RECORDS SUMMARY | 2024-08-08 21:55 | XMS_ITS | Encounter Summary ---
Author Organization [facility] Address [address] [place] [address] Phone Care Team Providers Care Veterinary Pathologist Name Role Phone Liliana May MD Primary Care Provider Moose Singleton MD Unavailable [phone] Reason for Referral * Diagnostic Imaging (Routine) - Closed Specialty Diagnoses / Procedures Referred By Johanna t Referred To Contact Diagnoses Thyroid nodule Procedures US Thyroid Moose Singleton MD [address] [place] [address] Phone: tel: fax: [address] [address] Referral ID Status Reason Start Date Expiration Date Visits Re quested Visits Authorized [id number] Closed 09/29/2021 10/29/2022 1 1 TER ELEMENT REPAIRER Encounter Details Date Type Department Care Team (Late st Contact Info) Description 09/29/2021 Orders Only [facility] - [facility] E[facility] [address] [facility] 11th [place] [address] Moose Singleton MD [address] [place] [address] Thyroid nodule (Primary Dx) Social History Tobacco [...] Results * US Thyroid (10/01/2021 1:42 PM TOASTER ELEMENT REPAIRER) Anatomical Region Laterality Modality Head and Neck N/A Ultrasound 10/01/2021 1:57 PM TOASTER ELEMENT REPAIRER Impressions 10/01/2021 2:39 PM TOASTER ELEMENT REPAIRER 1. Follow-up thyroid ultrasound in one year is recommended for the right thyroid nodules. Dictated by: Edgardo Zamora M.D. The radiology attending physician has personally reviewed this study, and had reviewed and/or edited this written report and agrees with it. Electronically signed by: Reinier Reese M.D. , PHD Narrative 10/01/2021 2:39 PM TOASTER ELEMENT REPAIRER EXAMINATION: THYROID SONOGRAM HISTORY: ??Floor of mouth [...] goiter documented in this encounter Care Teams Veterinary Pathologist Relationship Specialty Start Date End Date Liliana May MD [address] [address] PCP - General Family Medicine 01/01/21 Moose Singleton MD [address] [facility] [address] [place] [address] Consulting Physician Otolaryngology 09/27/21 documented as of this encounter
--- OUTSIDE RECORDS SUMMARY | 2024-08-08 21:55 | XMS_ITS | Encounter Summary ---
Author Organization [facility] Address [address] [place] [address] Phone Care Team Providers Care Host/Hostess Name Role Phone Liliana May MD Primary Care Provider Moose Singleton MD Unavailable [phone] Reason for Referral * Consultation (Routine) - Closed Specialty Diagnoses / Procedures Referred By Johanna perdomo Referred To Contact Otolaryngology Diagnoses FOM (cancer of floor of mouth) ([facility]) Liliana May MD [address] [place] [address] Phone: tel: fax: [facility] (All Locations) Referral ID Status Reason Start Date Expiration Date V isits Requested Visits Authorized [id number] Closed Specialty Services Required 05/05/2022 06/04/2023 99 99 Question Answer Please select the performing region: [facility] (All Locations) [167] # of visits: 1 Reason for Visit * Reason Comments Follow-up * Consultation (Routine) - Closed Specialty Diagnoses / Procedures Referred By Contkellee t Referred To Contact Otolaryngology Diagnoses FOM (cancer of floor of mouth) ([facility]) Liliana May MD [address] [place] [address] Phone: tel: fax: [facility] (All Locations) Referral ID Status Reason Start Date Expiration Date V isits Requested Visits Authorized [id number] Closed Specialty Services Required 05/05/2022 06/04/2023 99 99 Encounter Details Date Type Department Care Team (Late st Contact Info) Description 05/17/2022 1:40 PM CDT [facility] [place] [facility] [address] [facility] 11th [place] [address] [place] [address] Moose Singleton MD [address] [place] [address] 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) [...] Body Mass Index 21.67 10/16/2021 12:39 PM CREDIT CONTROL OFFICER documented in this encounter Progress Notes * Moose Singleton MD - 05/17/2022 1:40 PM CDT [facility] Department of Otolaryngology Division of Head and Neck Surgery 05/17/2022 Chilo Cross 1950 [id number] Referred by: Tavia Med onc: TBD Rad [...] by mouth 2 (two) times a day cektgvctlfv-dhavsprxg-yyfiqect (Trelegy Ellipta) 100-62.5-25 mcg inhaler Inhale 1 [...] Unspecified 05/14/2021 Chuck (J&J) SARS-CoV-2 Vaccination 11/10/2020 [facility] SARS-CoV-2 Vaccination (12+ YRS) 07/15/2021 REVIEW OF [...] are normal. The limited view of the [place] of [place] is unremarkable. Other than a [...] health care profession. Moose Singleton MD PhD Machine Iii Coremaker Attending, Head and Neck Surgery Department of Otolaryngology [facility] [phone] (Clinical nurse Bety Keith) Pager [phone] documented in this encounter Plan of Treatment [...] documented as of this encounter Care Teams Host/Hostess Relationship Specialty Start Date End Date Liliana May MD [address] [place] [address] PCP - General Family Medicine 01/01/21 Moose Singleton MD [address] [place] [address] Consulting Physician Otolaryngology 09/27/21 documented as of this encounter
--- OUTSIDE RECORDS SUMMARY | 2024-08-08 21:55 | XMS_ITS | Encounter Summary ---
Author Organization [facility] Address [address] [place] [address] Care Team Providers Care Soda Jerker Name Role Phone Liliana May MD Primary Care Provider Moose Singleton MD Unavailable [phone] Encounter Details Date Type Department Care Team (Late st Contact Info) Description 09/29/2021 Telephone [facility] Radiology [address] [place] [address] Jnenie Worthington RN Social History Tobacco Use Types [...] arrival 30 minutes prior to procedure Location: [facility], [address] [place] [address]. [place] on 3rd floor Radiology Registration Procedure Instructions: Does NOT need to hold Medications Does NOT need to be NPO Does NOT need a Carpet Renovator Patient given instructions, verbalized understanding. D MARKETING REPRESENTATIVE * Telephone Encounter - Jordi Olivo MD - 09/29/2021 9:09 AM FIELD MARKETING REPRESENTATIVE Approved for same day thyroid ultrasound + FNA if meets criteria. D MARKETING REPRESENTATIVE * Telephone Encounter - Jennie Worthington RN [...] US and possible FNA. Thank you, November D MARKETING REPRESENTATIVE documented in this encounter Plan of Treatment Not on file documented as of this encounter Visit Diagnoses Not on filedocumented in this encounter Care Teams Soda Jerker Relationship Specialty Start Date End Date Liliana May MD [address] [place] [address] PCP - General Family Medicine 01/01/21 Moose Singleton MD [address] [place] [address] Consulting Physician Otolaryngology 09/27/21 documented as of this encounter
--- OUTSIDE RECORDS SUMMARY | 2024-08-08 21:55 | XMS_ITS | Encounter Summary ---
Author Organization 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) Procedures CTA Abdominal Aorta And Bilateral Iliofemoral Runoff Moose Singleton MD [address] [place] [address] Phone: tel: fax: [address] [address] Referral ID Status Reason Start Date Expiration Date Visits Re quested Visits Authorized [id number] Closed 09/28/2021 10/28/2022 1 1 CTION COORDINATION POWER ENGINEER Reason for Visit * MRI/CAT/PET Scan (Routine) - Closed Specialty Diagnoses / Procedures Referred By Contac t Referred To Contact Radiology Diagnoses 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) Procedures CTA Abdominal Aorta And Bilateral Iliofemoral Runoff Moose Singleton MD [address] [address] Phone: tel: fax: [facility] [address] [facility] [place] [address] Referral ID Status Reason Start Date Expiration Date Visits Re quested Visits Authorized [id number] Closed 09/28/2021 10/28/2022 1 1 Encounter Details Date Type Department Care Team (Latest Contact Info) Description 10/01/2021 9:25 AM INDUCTION COORDINATION POWER ENGINEER Hospital Encounter [facility] [address] [place] [address] Moose Singleton MD [address] [place] [address] FOM (cancer of floor of mouth) ([facility]/HCC) ([facility]) Discharge Disposition: Discharge to home or [...] Read Routine (OP Routine) 10/01/2021 10:38 AM INDUCTION COORDINATION POWER ENGINEER FOM (cancer of floor of mouth) ([facility]CC) (HCC) documented in this encounter Results * CTA Abdominal Aorta And Bilateral Iliofemoral Runoff (10/01/2021 10:38 AM INDUCTION COORDINATION POWER ENGINEER) Anatomical Region Laterality Modality Body Bilateral Computed Tomogra phy 10/01/2021 11:2 6 AM INDUCTION COORDINATION POWER ENGINEER Impressions 10/01/2021 2:02 PM INDUCTION COORDINATION POWER ENGINEER 1. ??Right lower extremity: There is [...] Samson Toro M.D. Narrative 10/01/2021 2:02 PM INDUCTION COORDINATION POWER ENGINEER EXAMINATION: ??CT ANGIOGRAPHY OF THE ABDOMEN, [...] no significant stenosis SMA: no significant stenosis JMEMA: Moderate stenosis at the origin. Right renal [...] 1 dose Contrast Given 10/01/2021 10:26 AM INDUCTION COORDINATION POWER ENGINEER 117 mL documented in this encounter Orders Medications Ordered That José Manuel ht Not Have Been Administered Count Last Ordered Date First Ordered Date ioversoL (OPTIRAY 350) syrin ge syringe 117 mL 1 10/01/2021 documented in this encounter Care Teams Box Bender Relationship Specialty Start Date End Date Liliana May MD [address] [place] [address] PCP - General Family Medicine 01/01/21 Moose Singleton MD [address] [place] [address] Consulting Physician Otolaryngology 09/27/21 documented as of this encounter
--- OUTSIDE RECORDS SUMMARY | 2024-08-08 21:55 | XMS_ITS | Encounter Summary ---
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) Procedures CT Neck Soft Tissue W Contrast Moose Singleton MD [address] [place] [address] Phone: tel: fax: [address] [phone] Referral ID Status Reason Start Date Expiration Date Visits Re quested Visits Authorized [id number] Closed 08/16/2022 09/15/2023 1 1 T ADMINISTRATOR * MRI/CAT/PET Scan (Routine) - Closed Specialty Diagnoses / Procedures Referred By Contkellee t Referred To Contact Radiology Diagnoses 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) Procedures CT Chest W Contrast CT Neck Chest W Contrast Moose Singleton MD [address] [place] [address] Phone: tel: fax: [address] [phone] Referral ID Status Reason Start Date Expiration Date Visits Re quested Visits Authorized [id number] Closed 08/16/2022 09/15/2023 1 1 T ADMINISTRATOR Reason for Visit * MRI/CAT/PET Scan (Routine) - Closed Specialty Diagnoses / Procedures Referred By Contac t Referred To Contact Radiology Diagnoses 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) Procedures CT Chest W Contrast CT Neck Chest W Contrast Moose Singleton MD [address] [place] [address] Phone: tel: fax: [address] [phone] Referral ID Status Reason Start Date Expiration Date Visits Re quested Visits Authorized [id number] Closed 08/16/2022 09/15/2023 1 1 Encounter Details Date Type Department Care Team (Latest Contact Info) Description 08/16/2022 12:33 PM FLEET ADMINISTRATOR - 08/16/2022 11:59 PM FLEET ADMINISTRATOR Hospital Encounter [facility] Rad[facility] [address] [place] [address] Moose Singleton MD [address] [place], [place] [id number] 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) [...] Read Routine (OP Routine) 08/16/2022 1:39 PM FLEET ADMINISTRATOR 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) (HCC) CT SOFT TISSUE NECK W CONTRAST Schedule Routine, Read Routine (OP Routine) 08/16/2022 1:39 PM FLEET ADMINISTRATOR 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) (HCC) POCT CREATININE - DEVICE Routine 08/16/2022 1:00 PM FLEET ADMINISTRATOR documented in this encounter Results * CT Neck Soft Tissue W Contrast (08/16/2022 1:39 PM FLEET ADMINISTRATOR) Anatomical Region Laterality Modality Head and Neck N/A Computed Tomogra phy 08/16/2022 2:45 PM FLEET ADMINISTRATOR Impressions 08/16/2022 5:20 PM FLEET ADMINISTRATOR Evaluation of floor of mouth is limited by streak artifact secondary to dental alevism. However no definitive evidence of residual or recurrent enhancing mass in the mouth, and no cervical lymphadenopathy. Dictated by: Kwaku Poe MD The radiology attending physician has personally reviewed this study, and had reviewed and/or edited this written report and agrees with it. Electronically signed by: Fay Daly M.D. Narrative 08/16/2022 5:20 PM FLEET ADMINISTRATOR EXAMINATION: CT of the neck with contrast [...] limited by streak artifact secondary to dental alevism. However no definitive evidence of residual or recurrent enhancing mass in the mouth, and no cervical lymphadenopathy. Dictated by: Kwaku Poe MD The radiology attending physician has personally reviewed this study, and had reviewed and/or edited this written report and agrees with it. Electronically signed by: Fay Daly M.D. [facility] Cornelio Singleton MD IM CT PROCEDURES Ernestine l Result * CT Chest W Contrast (08/16/2022 1:39 PM FLEET ADMINISTRATOR) Anatomical Region Laterality Modality Body N/A Computed Tomogra phy 08/16/2022 2:03 PM FLEET ADMINISTRATOR Impressions 08/16/2022 5:58 PM FLEET ADMINISTRATOR 1. ??No definitive evidence for intrathoracic metastatic [...] Suzanne Cody MD Narrative 08/16/2022 5:58 PM FLEET ADMINISTRATOR EXAMINATION: ??Computed tomography of the chest with [...] * (ABNORMAL) POCT creatinine (08/16/2022 1:00 PM FLEET ADMINISTRATOR) Creatinine POC 1.4(H) 0.7 - 1.3 mg/dL [facility] Blood 08/16/2022 1:00 PM FLEET ADMINISTRATOR 08/16/2022 1:00 PM FLEET ADMINISTRATOR Liliana May MD LAB POCT ORDERABLES - D EVICE Final Result Performing Organization Address City/State/[facility] Co de Phone Number [facility] Department [place] [address] documented in this encounter Visit Diagnoses Diagnosis [...] 1 dose Contrast Given 08/16/2022 1:23 PM FLEET ADMINISTRATOR 90 mL ioversoL (OPTIRAY 350) injection 50 mL 50 mL, intravenous, Once in imaging, contrast, Starting on 08/16/22 at 1322, For 1 dose Contrast Given 08/16/2022 1:23 PM FLEET ADMINISTRATOR 42 mL documented in this encounter Care Teams Haunted History Tour Guide Relationship Specialty Start Date End Date Liliana May MD [address] [place] [address] PCP - General Family Medicine 01/01/21 Moose Singleton MD [address] [place], [place] [id number] Consulting Physician Otolaryngology 09/27/21 documented as of this encounter
--- OUTSIDE RECORDS SUMMARY | 2024-08-08 21:55 | XMS_ITS | Encounter Summary ---
Author Organization [facility] Healthcare Address [address] [place] [address] Care Team Providers Care Water Plant Pump Operator Name Role Phone Liliana May MD Primary Care Provider Moose Singleton MD Unavailable [phone] Encounter Details Date Type Department Care Team (Late st Contact Info) Description 10/09/2021 8:20 AM CEO NA Anesthesia Event [facility] Operating Room [address] [place] [address] Mahin Cruz MD [facility] [address] [place] [address] Breanne Flowers NP [address] [facility] [address] [place] [address] Anesthesia Record Procedure Summary Procedure Name Responsible [...] present on admission 10/09/21 0625 by Max Flower NP 10/16/211812 by Nancy Terrell RN ETT [...] Procedure Summary Date: 10/09/21 Room / Location: [facility] OR POD 5 ROOM 220 / [facility] OR POD 5 Anesthesia Start: 0820 [...] - patient participated Level of consciousness: arouses chronic care nurse Pain score: 2 Pain management: satisfactory to patient Airway patency: adequate Evidence of recall: no Cardiovascular status: acceptable and hemodynamically stable Respiratory status: acceptable and nasal cannula Hydration status: acceptable Pt is: normothermic Nausea/Vomiting status: none Comments: Transfer to the OU. No complications documented. NA * Anesthesia Procedure Notes - Nelly Trujillo CRNA - 10/09/2021 9:38 AM CSTAssociated Order(s): Peripheral IV Catheter Peripheral IV Catheter Patient location: OR Staff: Supervising provider: Mahin Cruz MD Placed by: COMPUTATIONAL CHEMIST: Nelly Trujillo CRNA Preprocedure prep: Prep solution: chlorhexadine PPE: gloves and provider hat/mask PIV line: Laterality: right Site: forearm Catheter size: 16 g Technique: anatomical landmarks, direct visualization and palpatation Procedure details: good blood return and occlusive dressing applied Number of attempts: 1 Assessment: Events: patient tolerated procedure well with no complications NA * Anesthesia Procedure Notes - Nelly Trujillo CRNA - 10/09/2021 9:36 AM CSTAssociated Order(s): Arterial Line Arterial Line Patient location: OR Indication: continuous blood pressure monitoring and blood sampling needed Ultrasound assisted: yes Staff: Supervising provider: Mahin Cruz MD Placed by: COMPUTATIONAL CHEMIST: Nelly Trujillo CRNA Procedure prep: Prep solution: chlorhexadine/alcohol Prep: provider hat/mask, sterile gloves and sterile drape Arterial line: Catheter size: 20 gauge Catheter type: angiocath Seldinger technique: no Laterality: right Site: radial artery Line secured: tape and Tegaderm Results: good waveform and good blood return Number of attempts: 1 Assessment: Events: patient tolerated procedure well with no complications NA * Anesthesia Procedure Notes - Nelly Trujillo [...] with: silk tape Number of attempts: 1 NA * Anesthesia Preprocedure Evaluation - Mahin Cruz MD - 10/05/2021 9:37 AM CEO NA Images from the original note were not included. [facility] Planning Preoperative Evaluation Record Evaluation type/location: CPAP [facility] Planned procedure site: [facility] (Pods 2/3/5/TRAFFIC MANAGER) Date: 10/05/21 Anesthesia Evaluation Chilo Cross is [...] - Current Rhythm: atrial fibrillation. Pertinent negatives: NV ; CABG ; valve replacement; arrhythmia; pacemaker/ICD; [...] Functional capacity is . Obstructive sleep apnea (ZEYDA) screening status is STOP-Bang=4 suggesting moderate risk [...] of vaccination status is available in the [facility] Immunization tab. . Plan for pre-procedure COVID19 testing: Surgery date within 4 days. Pre-procedure COVID19 testing performed at CPAP. Result pending- to be reviewed by surgeon's office. This patient has a history of atrial fibrillation at LOW risk for perioperative thromboembolic events with a [id number] score of 4 and no known history [...] hospitalization 07/2021. Will obtain last OVN from inspector exhaust emissions. Preoperative evaluation performed by Breanne Flowers NP [...] verbalizes understanding. >Awaiting labs and OVN from [id number]. Follow-up completed by: Breanne Flowers NP on [...] note Reviewed last OVN from pulmonology in [facility] and most recent PFT's as noted [...] tablet 10/05/2021 09/11/21 -- Radha Romano MD [id number] (Trelegy Ellipta) 100-62.5-25 mcg inhaler 10/05/2021 01/21/08 [...] tablet ??? Eliquis 5 mg tablet ??? [id number]-quvsovpfe-ziormxjd (Trelegy Ellipta) 100-62.5-25 mcg inhaler ??? furosemide [...] Medication protocol when under care of a COMPUTATIONAL CHEMIST Planned anesthesia: General Consent and Attending signature: I and/or my designee have discussed the anesthesia plan, benefits, possible alternatives, parental presence at time of induction (if indicated), and clinically relevant risks that may include dental injury, unintentional awareness, and/or other complications. The patient and/or parent/legal guardian understand, and agree to proceed. All questions answered. NA NA NA NA NA NA NA NA NA documented in this encounter Plan of Treatment Not on file documented as of this encounter Procedures Procedure Name Priority Date/Time Associated Diagnosis Comments [place] AN PROCEDURE PLACEHOLDER Routine 10/09/2021 9:38 AM CEO NA AZ AN PROCEDURE PLACEHOLDER Routine 10/09/2021 9:36 AM CEO NA [place] AN PROCEDURE PLACEHOLDER Routine 10/09/2021 8:41 AM CEO NA AZ AN ELECTIVE ENDOTRACHEAL AIRWAY Routine 10/09/2021 8:41 AM CEO NA documented in this encounter Results * AZ AN PROCEDURE PLACEHOLDER (10/09/2021 9:38 AM CEO NA) Narrative Nelly Trujillo CRNA - 10/09/2021 9:38 AM CEO NA Nelly Trujillo CRNA ? 10/09/2021 ??9:38 AM Peripheral IV Catheter Patient location: OR Staff: Supervising provider: Mahin Cruz MD Placed by: COMPUTATIONAL CHEMIST: Nelly Trujillo CRNA Preprocedure prep: Prep solution: chlorhexadine PPE: gloves and provider hat/mask PIV line: Laterality: right Site: forearm Catheter size: 16 g Technique: anatomical landmarks, direct visualization and palpatation Procedure details: good blood return and occlusive dressing applied Number of attempts: 1 Assessment: Events: patient tolerated procedure well with no complications us Mahin Cruz MD ANESTHESIA ORDERABLES Final Resu lt * [place] AN PROCEDURE PLACEHOLDER (10/09/2021 9:36 AM CEO NA) Narrative Nelly Trujillo CRNA - 10/09/2021 9:36 AM CEO NA Nelly Trujillo CRNA ? 10/09/2021 ??9:38 AM Arterial Line Patient location: OR Indication: continuous blood pressure monitoring and blood sampling needed Ultrasound assisted: yes Staff: Supervising provider: Mahin Cruz MD Placed by: COMPUTATIONAL CHEMIST: Nelly Trujillo CRNA Procedure prep: Prep solution: [...] MD ANESTHESIA ORDERABLES Final Resu lt * AZ AN ELECTIVE ENDOTRACHEAL AIRWAY, [place] AN PROCEDURE PLACEHOLDER (10/09/2021 8:41 AM CEO NA) Narrative Nelly Trujillo CRNA - 10/09/2021 8:41 AM CEO NA Nelly Trujillo CRNA ? 10/09/2021 ??9:36 AM Airway Patient location: OR Urgency: elective Date/time: 10/09/2021 8:41 AM Indications for airway management: anesthesia Difficult airway: no Staff: Supervising provider: Mahin Cruz MD Placed by: COMPUTATIONAL CHEMIST: Nelly Trujillo CRNA Emergent airway documentation: Risks [...] 0820, Anesthesia Intra-op Given 10/09/2021 8:20 AM CEO NA 2 puffs ampicillin-sulbactam (UNASYN) 3 g/110 mL in sodium chloride 0.9% (premix) 3 g 3 g, intravenous, Administer over 30 Minutes, Once, On Tue10/09/21 at 0645, For 1 dose, Intra-Op, Indications: Prophylaxis, SurgicalIndications:Prophylaxis, Surgical Given 10/09/2021 10:37 AM CEO NA 3 g Given 10/09/2021 8:50 AM CEO NA 3 g dexAMETHasone (DECADRON) 4 mg/mL injection intravenous, Administer over 2 Minutes, As needed, Starting on Tue10/09/21 at 0948, Anesthesia Intra-op Given 10/09/2021 12:02 PM CEO NA 8 mg Given 10/09/2021 9:48 AM CEO NA 10 mg ePHEDrine injection intravenous, Administer over 5 Minutes, As needed, Starting on Tue10/09/21 at 0904, Anesthesia Intra-op Given 10/09/2021 9:28 AM CEO NA 5 mg Given 10/09/2021 9:12 AM CEO NA 10 mg Given 10/09/2021 9:04 AM CEO NA 10 mg fentaNYL (SUBLIMAZE) preservative free injection intravenous, As needed, Starting on Tue10/09/21 at 0836, Anesthesia Intra-op Given 10/09/2021 9:38 AM CEO NA 50 mcg Given 10/09/2021 9:20 AM CEO NA 50 mcg Given 10/09/2021 9:00 AM CEO NA 100 mcg fentaNYL 2500 mcg/50 mL cassette/syringe (premix) intravenous, As needed, Starting on Tue10/09/21 at 0850, Anesthesia Intra-op Rate/Dose Change 10/09/2021 11:07 AM CEO NA 0.5 mcg/kg/hr 0.726 mL/hr Rate/Dose Change 10/09/2021 9:47 AM CEO NA 0.5 mcg/kg/hr 0.72 6 mL/hr Rate/Dose Change 10/09/2021 9:40 AM CEO NA 1 mcg/kg/hr 1.452 mL/hr Lactated Ringer's (LR) infusion 30 mL/hr, intravenous, Continuous, Starting on Tue10/09/21 at 0645, Pre-Op Restarted 10/09/2021 11:37 AM CEO NA Rate/Dose Verify 10/09/2021 8:20 AM CEO NA 30 mL/h r Restarted 10/09/2021 7:35 AM CEO NA Lactated Ringer's (LR) infusion intravenous, Continuous PRN, Starting on Tue10/09/21 at 0850, Anesthesia Intra-op New Bag 10/09/2021 8:50 AM CEO NA lidocaine (cardiac) (XYLOCAINE) preservative free injection intravenous, As needed, Starting on Tue10/09/21 at 0836, Anesthesia Intra-op, Indications: Ventricular ArrhythmiasIndications:Ve ntricular Arrhythmias Given 10/09/2021 8:36 AM CEO NA 40 mg midazolam (VERSED) 1 mg/mL preservative free injection intravenous, Administer over 2 Minutes, As needed, Starting on Tue10/09/21 at 0820, Anesthesia Intra-op Given 10/09/2021 8:20 AM CEO NA 2 mg oxymetazoline (AFRIN) 0.05 % nasal spray each nostril, As needed, Starting on Tue10/09/21 at 0820, Anesthesia Intra-op Given 10/09/2021 8:20 AM CEO NA 4 mL phenylephrine (BAM-SYNEPHRINE) 5 mg/50 mL (100 mcg/mL) in sodium chloride 0.9% (premix) intravenous, Continuous PRN, Starting on Tue10/09/21 at 0850, Anesthesia Intra-op Rate/Dose Change 10/09/2021 12:18 PM CEO NA 0.3 mcg/kg/min 13.068 mL/hr Rate/Dose Change 10/09/2021 11:21 AM CEO NA 0.6 mcg/kg/min 26 .136 mL/hr Restarted 10/09/2021 11:15 AM CEO NA 0.4 mcg/kg/min 17.424 m L/hr propofoL (DIPRIVAN) 10 mg/mL IV intravenous, As needed, Starting on Tue10/09/21 at 0836, Anesthesia Intra-op Given 10/09/2021 8:36 AM CEO NA 100 mg succinylcholine (ANECTINE) injection intravenous, As needed, Starting on Tue10/09/21 at 0836, Anesthesia Intra-op Given 10/09/2021 8:36 AM CEO NA 80 mg documented in this encounter Care Teams Water Plant Pump Operator Relationship Specialty Start Date End Date Liliana May MD [address] [place] [address] PCP - General Family Medicine 01/01/21 Moose Singleton MD [address] [place] [address] Consulting Physician Otolaryngology 09/27/21 documented as of this encounter
--- OUTSIDE RECORDS SUMMARY | 2024-08-08 21:55 | XMS_ITS | Encounter Summary ---
Author Organization [facility] Address [address] [place] [address] Care Team Providers Care Turkey Farmer Name Role Phone Yue Lennon MD Primary Care Provider Reason for Visit * Cardiology (Routine) - Closed Specialty Diagnoses / Procedures Referred By Johanna perdomo Referred To Contact Diagnoses Congestive heart failure, unspecified HF chronicity, unspecified heart failure type (HCC) Acute dyspnea Procedures Transthoracic Echo Complete W Doppler/CF Yue Lennon MD [address] [place] [address] Phone: tel: fax: [facility] Referral ID Status Reason Start Date Expiration Date Visits Re quested Visits Authorized [id number] Closed 01/01/2021 01/31/2022 1 1 Encounter Details Date Type Department Care Team (Latest Contact Info) Description 01/27/2021 11:15 AM CDT Ancillary Procedure [facility] Cardiology [address] [place] [address] Congestive heart failure, unspecified HF chronicity, unspecified [...] AM CDT Narrative 01/27/2021 2:55 PM CDT [facility] Cardiology [address], [place] [address] [address], [place] [address] P:[phone] P:[phone] Echocardiographic Report Patient Name: CHIOL JI : 1950 Study Date: 01/27/2021 10:43:41 AM Gender: M Tech: Location: ID Ref.Provider: YUE LENNON Height(Cm): 183 BSA: 1.94 [...] Findings: Interpretation Site: Exam was interpreted at [facility]. Left Ventricle: Normal left ventricular size. Definity [...] Procedure Note Martin Taylor MD - 01/27/2021 [facility] Cardiology [address], [place] [address] [address], [place] [address] P:[phone] P:[phone] Echocardiographic Report Patient Name: CHILO JIPatient ID: [id number] : [id number] Date: 01/27/2021 10:43:41 AM Gender: MAccession #: [id number] Tech: GMLocation: ID Ref.Provider: Ernst LENNON(Cm): 183 BSA: 1.94Weight(Kg): 72.58 [...] m/s ACS MM 1.83 cm MV Decel Nprp408 [ 150 - 200 ] msec PV Peak Vel0.71 [ 0.40 - 0.80 ] m/s TR Peak Vel2.82 [ 0.40 - 0.80 ] m/s TR Peak PG 32mmHg RVSP40.00 mmHg E'0.11 E/E' 9 Findings: Interpretation Site: Exam was interpreted at [facility]. Left Ventricle: Normal left ventricular size. Definity [...] 01/27/2021 documented in this encounter Care Teams Turkey Farmer Relationship Specialty Start Date End Date Yue Lennon MD [address] [place] [id number] PCP - General Family Medicine 01/01/21 documented as of this encounter
--- OUTSIDE RECORDS SUMMARY | 2024-08-08 21:55 | XMS_ITS | Encounter Summary ---
Author Organization [facility] Healthcare Address [address] [place] [address] Care Team Providers Care Refurbish Technician Name Role Phone Liliana May MD Primary Care Provider Moose Singletno MD Unavailable [phone] Encounter Details Date Type Department Care Team (Late st Contact Info) Description 10/09/2021 7:30 AM MARGIN TRIMMER - 10/09/2021 9:25 PM MARGIN TRIMMER Surgery [facility] Operating Room [address] [place] [address] Moose Singleton MD [address] [place] [address] FLOOR OF MOUTH RESECTION, PARTIAL MANDIBULECTOMY, DENTAL EXTRACTIONS Surgery Details Date/Time Status Location OR Service Patient Class Case Class Case Type Trauma Case? 10/09/2021 7:30 AM Posted [facility] OR POD 5 220 Otolaryngology Surgery Admit [...] Comments Blood Pressure 131/71 10/09/2021 9:00 PM MARGIN TRIMMER Pulse 53 10/09/2021 9:00 PM MARGIN TRIMMER Temperature 36.4 ??C (97.6 ??F) 10/09/2021 7:00 PM CS T Respiratory Rate 14 10/09/2021 9:00 PM MARGIN TRIMMER Oxygen Saturation 93% 10/09/2021 9:00 PM MARGIN TRIMMER Inhaled Oxygen Concentration - - Weight - - Height - - Body Mass Index - - documented in this encounter Discharge Summaries * Cintia Ruffin MD - 10/11/2021 10:38 AM CST Inpatient Discharge Summary BRIEF OVERVIEW Admitting Provider: Moose Singleton MD Discharge Provider: Moose Singleton MD Primary Care Physician at Discharge: Liliana May MD [phone] Admission Date: 10/09/2021 Discharge Date: 10/11/2021 Admission Location: [facility] Problems/Diagnoses: Principal Problem: FOM (cancer of [...] Hold metoprolol on discharge - F/u with PCP/filling machine operator to restart medication Medical Conditions Present Prior [...] and eliquis 2. Metoprolol -- f/u with filling machine operator/PCP Test Results Pending at Discharge: Pending Labs [...] should follow-up with your family doctor or filling machine operator on Tuesday to determine whether you should continue this medication. Questions: If you have any concerns or questions, or develop worrisome symptoms such as worsening pain or swelling, bleeding, fever, or vomiting, call your doctor. Use [phone] if you are calling during weekday business hours (8am-5pm Tuesday through Tuesday), otherwise call [phone] and ask for the ENT resident communications professor. Discharge Medications: Current Medications TAKE these medications [...] Inhale 1 puff every morning Generic drug: jhvznqutuat-bgvqmyrhz-ovhbinmo * This list has 2 medication(s) that [...] OY 10/30/2021 1:00 PM Scot Pollock MD [facility] Cosigned by Moose Singleton MD at 10/12/2021 8:35 AM MARGIN TRIMMER IN TRIMMER IN TRIMMER documented in this encounter Discharge Instructions * Discharge Instructions* Corina Mccracken MD - 10/11/2021 2:39 PM MARGIN TRIMMER ENT Post Operative Discharge Instructions Procedure: L [...] should follow-up with your family doctor or filling machine operator on Tuesday to determine whether you should continue this medication. Questions: If you have any concerns or questions, or develop worrisome symptoms such as worsening pain or swelling, bleeding, fever, or vomiting, call your doctor. Use [phone] if you are calling during weekday business hours (8am-5pm Tuesday through Tuesday), otherwise call [phone] and ask for the ENT resident communications professor. IN TRIMMER documented in this encounter Medications at Time [...] Destination Discharge to home or self care [facility] documented in this encounter Progress Notes * [...] Q8H AMEE enoxaparin, 40 mg, subcutaneous, Daily-2100 cbglbzljete-afgrszhit-eoretngx, 1 puff, inhalation, Daily (RT) metoprolol XL, [...] - Pain control: Tylenol/PRN oxy - Airway: Ione - Diet: start FLD diet today - [...] Tue - Tue Daytime: ASHLEY Mcgovern at [phone] Mon Daytime (backup Tue-Tue Days): See [facility] for [facility] (pw: [facility]) Weekends & After 6pm: ENT Consult Cosigned by Moose Singleton MD at 10/12/2021 8:36 AM MARGIN TRIMMER IN TRIMMER IN TRIMMER * Maria Elena Wise MD - 10/10/2021 [...] Q8H AMEE enoxaparin, 40 mg, subcutaneous, Daily-2100 vgyhbrlnhxx-jldzmsico-uwbzrcuu, 1 puff, inhalation, Daily (RT) metoprolol XL, [...] 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 s/p OR WLE, rim mandibulectomy, partial closure with remaining left to heal by secondary intention Plan: #Postoperative care - Pain control: Tylenol/PRN oxy - Airway: Ione - Diet: CLD POD1 in PM -> [...] Tue - Tue Daytime: ASHLEY Mcgovern at [phone] Mon Daytime (backup Tue-Tue Days): See [facility] for [facility] (pw: [facility]) Weekends & After 6pm: ENT Consult Cosigned by Moose Singleton MD at 10/12/2021 8:36 AM MARGIN TRIMMER IN TRIMMER IN TRIMMER * Maria Elena Wise MD - 10/09/2021 [...] - Pain control: Tylenol/PRN oxy - Airway: Ione - Diet: NPO -> CLD POD1 in PM -> FLD POD2 in AM - GI ppx: protonix - Abx: unasyn - DVT ppx: lovenox, SCDs, OOB - Cunningham: none Maria Elena Wise MD Otolaryngology - Head & Neck Surgery For questions please reach out to: Tue - Tue Daytime: ASHLEY Mcgovern at [phone] Mon Daytime (backup Tue-Tue Days): See [facility] for [facility] (pw: [facility]) Weekends & After 6pm: ENT Consult IN TRIMMER documented in this encounter H&P Notes * [...] Moose Singleton MD at 10/09/2021 7:27 AM MARGIN TRIMMER IN TRIMMER IN TRIMMER Source Note - Breanne Flowers NP - 10/05/2021 9:37 AM MARGIN TRIMMER Images from the original note were not included. [facility] Preoperative Assessment and Planning Preoperative Evaluation Record Evaluation type/location: [facility] Planned procedure site: [facility] (Pods 2/3/5/SHOP LEAD) Date: 10/05/21 Anesthesia Evaluation Chilo Ji is [...] - Current Rhythm: atrial fibrillation. Pertinent negatives: ID ; CABG ; valve replacement; arrhythmia; pacemaker/ICD; [...] 4 days. Pre-procedure COVID19 testing performed at [facility]. Result pending- to be reviewed by surgeon's office. This patient has a history of atrial fibrillation at LOW risk for perioperative thromboembolic events with a [id number] score of 4 and no known history [...] hospitalization 07/2021. Will obtain last OVN from computer engineering technologist. Preoperative evaluation performed by Breanne Flowers NP [...] verbalizes understanding. >Awaiting labs and OVN from [id number]. 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 No pertinent past medical history. [...] tablet 10/05/2021 09/11/21 -- Radha Romano MD bdxdmkkgwhf-goetliohc-tvtjrxfw (Trelegy Ellipta) 100-62.5-25 mcg inhaler 10/05/2021 01/21/08 [...] tablet ??? Eliquis 5 mg tablet ??? frygaehcsml-cehehjlbt-cnmjkyop (Trelegy Ellipta) 100-62.5-25 mcg inhaler ??? furosemide [...] Score: 0 Short Blessed Total Score: 0 IN TRIMMER IN TRIMMER IN TRIMMER IN TRIMMER IN TRIMMER IN TRIMMER IN TRIMMER IN TRIMMER documented in this encounter Miscellaneous Notes * Op Note - Moose Singleton MD - 10/09/2021 9:00 AM CST NAME: Chiol Ji DATE: 10/09/21 PREOPERATIVE DIAGNOSIS Alveolar ridge [...] the entire procedure. Moose Singleton MD PhD Scout Attending, Head and Neck Surgery Department of Otolaryngology [facility] [phone] (Clinical nurse Janneth Whitaker RN) Pager [phone] IN TRIMMER * Op Note - John Torres MD [...] Dr. Singleton ATTENDING SURGEON: John Torres MD SKI TOW OPERATOR SURGEON: Surgeon(s): Aleksandar Bragg MD ANESTHESIA: General [...] participated for the entirety of the surgery. IN TRIMMER * Brief Op Note - Aleksandar Bragg MD - 10/09/2021 9:00 AM CST Operative Progress Note Surgical Team: Surgeon(s) and Role: * Moose Singleton MD - Primary * Aleksandar Bragg MD - Resident - Assisting * John Torres MD - Fellow Anesthesiologist: Mahin Cruz MD EMBOSSING UNIT OPERATOR: Nelly Trujillo CRNA; Yemi London CRNA Sales Representative Raw Fibers: Selam Maxwell RN; Corina Mcdonnell RN Sales Representative Raw Fibers Relief: Kwaku Marks RN; Miguelina Aponte RN [...] Moose Singleton MD at 10/09/2021 12:50 PM MARGIN TRIMMER IN TRIMMER IN TRIMMER documented in this encounter Plan of Treatment Scheduled Orders Name Type Priority Associated Diagnoses Orde r Schedule Gross/Hardware Pathology and Cytology Timed FOM (cancer of floor of mouth) ([facility]/HCC) ([facility]) Release Upon Ordering for 1 Occurrences starting 10/09/2021 documented as of this encounter Procedures Procedure Name Priority Date/Time Associated Diagnosis Comments POCT GLUCOSE DEVICE Routine 10/09/2021 1 :19 PM MARGIN TRIMMER EGFR Routine 10/09/2021 1:05 PM MARGIN TRIMMER DIFFERENTIAL AUTO Routine 10/09/2021 1:0 5 PM MARGIN TRIMMER CBC WITH AUTO DIFFERENTIAL Routine 10/09/2021 1:05 PM MARGIN TRIMMER PHOSPHORUS Routine 10/09/2021 1:05 PM MARGIN TRIMMER MAGNESIUM Routine 10/09/2021 1:05 PM MARGIN TRIMMER BASIC METABOLIC PANEL Routine 10/09/2021 1:05 PM MARGIN TRIMMER POC BLOOD GAS AND CHEMISTRIES, ARTERIAL Routine 10/09/2021 10:00 AM MARGIN TRIMMER SURGICAL PATHOLOGY Routine 10/09/2021 9: 01 AM MARGIN TRIMMER 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 Haydee Aviles to run past 7 pm via E-mail. (DM)10/01: E-mail sent, waiting for permission to run past 7pm. (DM)09/24: Case moved to 10/09 from 10/13 per [place] via phone call. (DM)09/22: Missing DPC, message sent to resource nurse. 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 Haydee Aviles to run past 7 pm via E-mail. (DM)10/01: E-mail sent, waiting for permission to run past 7pm. (DM)09/24: Case moved to 10/09 from 10/13 per [place] via phone call. (DM)09/22: Missing DPC, message sent to resource nurse. (DM) B CHECK SAMPLE STAT 10/09/2021 6:15 AM MARGIN TRIMMER documented in this encounter Results * POCT glucose (10/09/2021 1:19 PM MARGIN TRIMMER) Glucose, POC 131 70 - 199 mg/dL [facility] Blood 10/09/2021 1:19 PM MARGIN TRIMMER 10/09/2021 1:19 PM MARGIN TRIMMER Moose Singleton MD LAB POCT ORDERABLES - DEVICE Final Result [facility] Department [place] [address] * (ABNORMAL) eGFR (10/09/2021 1:05 PM MARGIN TRIMMER) eGFR 71(L) 90 - 130 mL/min/1. 73 m2 [facility] Comment: Interpretive Data Reference Interval [...] last reviewed 2021. Blood 10/09/2021 1:05 PM MARGIN TRIMMER 10/09/2021 1:45 PM MARGIN TRIMMER us Moose Singleton MD LAB BLOOD ORDERABLES F inal Result [facility] Department [place] [address] * (ABNORMAL) Differential, auto (10/09/2021 1:05 PM MARGIN TRIMMER) Neutrophil abs 9.9(H) 1.7 - 6.5 K/cumm [facility] Imm gran abs 0.1 0.0 - 0.1 K/cumm [facility] Lymphocyte abs 0.9 0.8 - 3.3 K/cumm [facility] Monocyte abs 0.1(L) 0.2 - 0.8 K/cumm [facility] Eosinophil abs 0.1 0.0 - 0.5 K/cumm [facility] Basophil abs 0.1 0.0 - 0.1 K/cumm [facility] Neutrophil pct 89.8 % [facility] Comment: Confirmed by smear review Interpretive Data Percent cell count reference ranges are not reported, since discordance with absolute values may lead to misinterpretation of CBC data. Current Interpretive Data was last revised on 2017. Imm gran pct 0.5 % [facility] Comment: Interpretive Data Percent cell count reference ranges are not reported, since discordance with absolute values may lead to misinterpretation of CBC data. Current Interpretive Data was last revised on 2017. Lymphocyte pct 7.8 % [facility] Comment: Interpretive Data Percent cell count reference ranges are not reported, since discordance with absolute values may lead to misinterpretation of CBC data. Current Interpretive Data was last revised on 2017. Monocyte pct 0.7 % [facility] Comment: Interpretive Data Percent cell count reference ranges are not reported, since discordance with absolute values may lead to misinterpretation of CBC data. Current Interpretive Data was last revised on 2017. Eosinophil pct 0.6 % [facility] Comment: Interpretive Data Percent cell count reference ranges are not reported, since discordance with absolute values may lead to misinterpretation of CBC data. Current Interpretive Data was last revised on 2017. Basophil pct 0.6 % [facility] Comment: Interpretive Data Percent cell count reference ranges are not reported, since discordance with absolute values may lead to misinterpretation of CBC data. Current Interpretive Data was last revised on 2017. Blood 10/09/2021 1:05 PM MARGIN TRIMMER 10/09/2021 1:43 PM MARGIN TRIMMER Moose Singleton MD LAB BLOOD ORDERABLES F inal Result [facility] Department [place] [address] * (ABNORMAL) CBC with auto differential (10/09/2021 1:05 PM MARGIN TRIMMER) WBC 11.1(H) 3.8 - 9.9 K/cumm [facility] Hgb 14.0 13.0 - 17.5 g/dL [facility] Hct 42.7 38.9 - 50.3 % [facility] Plt 144(L) 150 - 400 K/cumm [facility] Comment:No clot detected in sample. MPV 10.5 9.1 - 12.3 fL [facility] RBC 4.75 4.30 - 5.80 M/cumm [facility] MCV 89.9 81.3 - 96.4 fL [facility] MCH 29.5 27.1 - 33.3 pg [facility] MCHC 32.8 32.3 - 35.7 g/dL [facility] RDW CV 13.0 11.1 - 14.9 % [facility] RDW SD 43.0 35.7 - 48.1 fL [facility] NRBC abs 0.00 0.00 - 0.01 K/cumm [facility] Blood 10/09/2021 1:05 PM MARGIN TRIMMER 10/09/2021 1:43 PM MARGIN TRIMMER Moose Singleton MD LAB BLOOD ORDERABLES F inal Result Performing Organization Address City/[facility] [place] [address] * (ABNORMAL) Phosphorus (10/09/2021 1:05 PM MARGIN TRIMMER) [facility] Phosphorus, pl 1.6(L) 2.3 - 4.5 mg/dL [facility] Blood 10/09/2021 1:05 PM MARGIN TRIMMER 10/09/2021 1:43 PM MARGIN TRIMMER Moose Singleton MD LAB BLOOD ORDERABLES F inal Result Performing Organization Address [facility] de Phone Number [facility] [place] [address] * Magnesium (10/09/2021 1:05 PM MARGIN TRIMMER) [facility] Magnesium 1.4 1.4 - 2.5 mg/dL [facility] Blood 10/09/2021 1:05 PM MARGIN TRIMMER 10/09/2021 1:43 PM MARGIN TRIMMER Moose Singleton MD LAB BLOOD ORDERABLES F inal Result Performing Organization Address City/[facility] Co de Phone Number [facility] [place] [address] * Basic metabolic panel (10/09/2021 1:05 PM MARGIN TRIMMER) [facility] Sodium 139 135 - 145 mmol/L [facility] Potassium, pl 4.2 3.3 - 4.9 mmol/L [facility] Chloride 103 97 - 110 mmol/L [facility] CO2 27 22 - 32 mmol/L [facility] Anion gap 9 2 - 15 mmol/L [facility] BUN 18 8 - 25 mg/dL [facility] Creatinine 1.12 0.80 - 1.30 mg/dL [facility] Glucose 160 70 - 199 mg/dL [facility] Comment: Interpretive Data Fasting glucose >/= [...] 2017. Calcium 9.0 8.5 - 10.3 mg/dL [facility] Blood 10/09/2021 1:05 PM MARGIN TRIMMER 10/09/2021 1:43 PM MARGIN TRIMMER us Moose Singleton MD LAB BLOOD ORDERABLES F inal Result [facility] Department [place] [address] * (ABNORMAL) POC Blood Gas and Chemistries, Arterial - (10/09/2021 10:00 AM MARGIN TRIMMER) pH, Art POC 7.36 7.35 - 7.45 [facility] pCO2, Art POC 52(H) 35 - 45 mmHg [facility] pO2, Art POC 221(H) 83 - 108 mmHg [facility] Na, POC 135 135 - 145 mmol/L [facility] K POC 4.8 3.3 - 4.9 mmol/L [facility] Comment: Interpretive Data Unable to assess hemolysis. ??Invitro hemolysis causes falsely elevated potassium. Current Interpretive Data was last revised on 2020. Cl, POC 102 97 - 110 mmol/L [facility] Ionized Ca, POC 4.70 4.50 - 5.10 mg/dL [facility] Glucose, POC 125 70 - 199 mg/dL [facility] Lactate, POC 0.9 0.7 - 2.2 mmol/L [facility] SO2 (luisa) arterial 100(H) 90 - 95 % [facility] Base excess, POC 2.8 mmol/L [facility] HCO3, Art POC 29 20 - 30 mmol/L [facility] Hct, POC 42.0 41.4 - 51.6 % [facility] O2 Sat, Art POC (Calc) 100 % [facility] Total Hb, POC 13.9 13.8 - 17.2 g/dL [facility] Blood 10/09/2021 10:0 0 AM MARGIN TRIMMER 10/09/2021 10:00 AM MARGIN TRIMMER us Moose Singleton MD LAB POCT ORDERABLES - DEVICE Final Result [facility] [place] [address] * Surgical pathology (10/09/2021 9:01 AM MARGIN TRIMMER) Tissue (Soft tissue biopsy) 10/09/2021 9:01 AM MARGIN TRIMMER Tissue (Soft tissue biopsy) 10/09/2021 9:42 AM MARGIN TRIMMER Comment:FROZEN Tissue (Soft tissue biopsy) 10/09/2021 11:24 AM MARGIN TRIMMER Comment:FROZEN Tissue (Soft tissue biopsy) 10/09/2021 11:24 AM MARGIN TRIMMER Comment:FROZEN Tissue (Soft tissue biopsy) 10/09/2021 11:25 AM MARGIN TRIMMER Comment:FROZEN Tissue (Soft tissue biopsy) 10/09/2021 11:25 AM MARGIN TRIMMER Comment:FROZEN Tissue (Soft tissue biopsy) 10/09/2021 11:25 AM MARGIN TRIMMER Comment:FROZEN Tissue (Soft tissue biopsy) 10/09/2021 11:25 AM MARGIN TRIMMER Comment:FROZEN Tissue (Mandible/maxilla , excision) 10/09/2021 11:45 AM MARGIN TRIMMER Narrative PATHOLOGY [facility] - 10/19/2021 1:45 PM CDT EPIC results best viewed via link to PDF [facility] [place] [address] Note to Patients: This report may contain [...] Gender: ??M : ??1950 (Age: 71) Address: ??[address] [place] [address] Hospital #: ??[id number] Taken:10/09/2021 Received:10/09/2021 Reported: 10/19/2021 Patient Type: [facility] Inpatient ?? Service: Otolaryngology Location: [address] Physician(s): ??Moose Singleton M.D., PH.D. Aleksandar [...] for invasion (less than 1 mm) on containers sales representative sections By Salomón Lopes M.D., [...] Resident:Morena Andrade M.D., PhD PA(s): ASHLEY [facility] ([facility] ? CANCER CASE SUMMARY FOR CANCER OF [...] and Flow Cytometry Departments at [facility] as part of an ongoing quality assurance assistant program and in compliance with federally mandated [...] and Flow Cytometry Departments of [facility]. ??It has not been cleared or approved by the U. S. Food and Drug Administration. IMAGES AND SCANNED DOCUMENTS, IF INCLUDED, ONLY VIEWABLE IN PDF VERSION OF REPORT Moose Singleton MD LAB PATHOLOGY ORDERABL ES Final Result PATHOLOGY [facility] IO [address]rd Floor [place], [place] [phone] * Check Sample (10/09/2021 6:15 AM MARGIN TRIMMER) ABO Rh A Positive [facility] HCLL OTHER 10/09/2021 6:15 AM MARGIN TRIMMER 10/09/2021 6:38 AM MARGIN TRIMMER Result [facility] Cornelio Singleton MD LAB BLOOD ORDERABLES F inal Result [facility] [place] [address] documented in this encounter Visit Diagnoses Diagnosis [...] Respiratory/HEENT Infection New Bag 10/11/2021 12:04 PM MARGIN TRIMMER 3 g New Bag 10/11/2021 5:10 AM MARGIN TRIMMER 3 g New Bag 10/11/2021 12:04 AM MARGIN TRIMMER 3 g enoxaparin (LOVENOX) syringe 40 mg 40 mg, subcutaneous, Daily (for enoxaparin), First dose on Tue10/09/21 at 2100, Indications: Deep Vein Thrombosis PreventionIndications:Deep Vein Thrombosis Prevention Given 10/10/2021 9:06 PM MARGIN TRIMMER 40 mg Left Lower Abdomen Given 10/09/2021 9:35 PM MARGIN TRIMMER 40 mg Le ft Lower Abdomen ndfjckisxzj-nfqexkhce-jvacxtee (TRELEGY ELLIPTA) 100-62.5-25 mcg inhaler 1 puff 1 puff, inhalation, Daily (news correspondent), First dose on Tue10/09/21 at 1715, Rinse mouth with water after use. Do not swallow. Given 10/11/2021 8:48 AM MARGIN TRIMMER 1 puff Given 10/10/2021 9:18 AM MARGIN TRIMMER 1 puff heparin 5,000 units in sodium chloride 0.9% 250 mL 0-250 mL, irrigation, Once, On Tue10/09/21 at 0800, For 1 dose, Intra-Op Given 10/09/2021 11:09 AM MARGIN TRIMMER 250 mL Surgical Site lidocaine-EPINEPHrine (XYLOCAINE with EPI) 1 %-1:100,000 injection As needed, Starting on Tue10/09/21 at 1106, Intra-Op, Indications: Administration of Local AnesthesiaIndications:Administrati on of Local Anesthesia Given 10/09/2021 11:06 AM MARGIN TRIMMER 8 mL Surgical Site oxyCODONE (ROXICODONE) 1 [...] Non-Bleeding Gastric Disorder Given 10/11/2021 8:48 AM MARGIN TRIMMER 40 mg Given 10/10/2021 9:21 AM MARGIN TRIMMER 40 mg papaverine injection As needed, Starting on Tue10/09/21 at 1108, Intra-Op Given 10/09/2021 11:08 AM MARGIN TRIMMER 120 mg Surgical Site sodium chloride 0.9% flush 0.5-20 mL 0.5-20 mL, intra-catheter, Every 8 hours scheduled, First dose on Tue10/09/21 at 1715, Flush volume based on line type and size. Given 10/10/2021 2:12 PM MARGIN TRIMMER 10 mL Given 10/10/2021 5:22 AM MARGIN TRIMMER 10 mL Given 10/09/2021 9:39 PM MARGIN TRIMMER 10 mL sodium chloride 0.9% irrigation As needed, Starting on Tue10/09/21 at 1109, Intra-Op Given 10/09/2021 11:09 AM MARGIN TRIMMER 3,000 mL Surgical Site documented in this encounter Discontinued Medications Medication Sig Discontinue Reason Start Date End Da te metoprolol XL (TOPROL-XL) 50 mg extended release tabletIndications:for HR Take 50 mg by mouth every morning Stop Taking at Discharge 06/27/2021 10/11/2021 documented as of this encounter Active and Recently Administered Medications Times are shown in MARGIN TRIMMER. Scheduled Medication Order 10/09/2021 10/10/2021 10/11/2021 ampicillin-sulbactam [...] 2105 (Given - Provider: Malcom Kat RN) pqzzoehzcsv-xfgqdojys-izq anter (TRELEGY ELLIPTA) 100-62.5-25 mcg inhaler 1 puff 1 puff, inhalation, Daily (news correspondent), First dose on Tue10/09/21 at 1715, Rinse [...] Rosita Andrade RN)1300 (Rate/Dose Verify - Provider: Rsoita Andrade RN)1400 (Rate/Dose Verify - Provider: Rosita [...] 2 puff, inhalation, Every 4 hours PRN (news correspondent), wheezing, shortness of breath, Starting on Tue10/09/21 [...] enoxaparin (LOVENOX) syringe 40 mg 1 2021 yjshrpmjmaj-zpchgiefv-uiuuxw er (TRELEGY ELLIPTA) 100-62.5-25 mcg inhaler 1 [...] 10/09/2021 documented in this encounter Care Teams Refurbish Technician Relationship Specialty Start Date End Date Liliana May MD [address] [place] [address] PCP - General Family Medicine 01/01/21 Moose Singleton MD [address] [place] [address] Consulting Physician Otolaryngology 09/27/21 documented as of this encounter
--- OUTSIDE RECORDS SUMMARY | 2024-08-08 21:55 | XMS_ITS | Encounter Summary ---
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) Procedures CT Neck Soft Tissue W Contrast Moose Singleton MD [address] [place] [address] Phone: tel: fax: [address] [phone] Referral ID Status Reason Start Date Expiration Date Visits Re quested Visits Authorized [id number] Closed 09/28/2021 10/28/2022 1 1 GER HARBOR Reason for Visit * MRI/CAT/PET Scan (Routine) - Closed Specialty Diagnoses / Procedures Referred By Contac t Referred To Contact Radiology Diagnoses 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) Procedures CT Chest W Contrast CT Neck Chest W Contrast Moose Singleton MD [address] [place] [address] Phone: tel: fax: [facility] [address] [place] [address] Referral ID Status Reason Start Date Expiration Date Visits Re quested Visits Authorized [id number] Closed 09/21/2021 10/21/2022 1 1 Encounter Details Date Type Department Care Team (Latest Contact Info) Description 09/28/2021 8:43 AM MANAGER HARBOR - 09/28/2021 11:59 PM MANAGER HARBOR Hospital Encounter [facility] Radiology [address] [place] [address] Moose Singleton MD [address] [place], [place] [id number] FOM (cancer of floor of mouth) ([facility]CC) ([facility]) Discharge Disposition: Discharge to home or [...] Read Routine (OP Routine) 09/28/2021 10:00 AM MANAGER HARBOR FOM (cancer of floor of mouth) ([facility]) ([facility]) CT SOFT TISSUE NECK W CONTRAST Schedule Routine, Read Routine (OP Routine) 09/28/2021 10:00 AM MANAGER HARBOR 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) (HCC) POCT CREATININE - DEVICE Routine 09/28/2021 9:04 AM MANAGER HARBOR documented in this encounter Results * CT Neck Soft Tissue W Contrast (09/28/2021 10:00 AM MANAGER HARBOR) Anatomical Region Laterality Modality Head and Neck N/A Computed Tomogra phy 09/28/2021 12:0 2 PM MANAGER HARBOR Impressions 09/28/2021 3:32 PM MANAGER HARBOR 1. ??No abnormally enhancing soft tissue identified [...] signed by: Marlon Nation 09/28/2021 3:32 PM MANAGER HARBOR EXAMINATION: CT of the neck with contrast [...] are normal. The limited view of the [place] is unremarkable. Other than a [...] are normal. The limited view of the [place] is unremarkable. Other than a [...] CT Chest W Contrast (09/28/2021 10:00 AM MANAGER HARBOR) Anatomical Region Laterality Modality Body N/A Computed Tomogra phy 09/28/2021 11:0 8 AM MANAGER HARBOR Impressions 09/28/2021 12:53 PM MANAGER HARBOR 1. ??Severe centrilobular emphysema with an expansile [...] Garth Rowe M.D. Narrative 09/28/2021 12:53 PM MANAGER HARBOR EXAMINATION: ??Computed tomography of the chest with [...] Result * POCT creatinine (09/28/2021 9:04 AM MANAGER HARBOR) Creatinine POC 1.1 0.7 - 1.3 mg/dL [facility] Blood 09/28/2021 9:04 AM MANAGER HARBOR 09/28/2021 9:04 AM MANAGER HARBOR Moose Singleton MD LAB POCT ORDERABLES - DEVICE Final Result [facility] Department [place] [address] documented in this encounter Visit Diagnoses Diagnosis [...] 1 dose Contrast Given 09/28/2021 10:17 AM MANAGER HARBOR 120 mL documented in this encounter Orders Medications Ordered That José Manuel ht Not Have Been Administered Count Last Ordered Date First Ordered Date ioversoL (OPTIRAY 350) syrin ge syringe 125 mL 1 09/28/2021 documented in this encounter Care Teams Inspection Manager Relationship Specialty Start Date End Date Liliana May MD [address] [place] [address] PCP - General Family Medicine 01/01/21 Moose Singleton MD [address] [place] [address] Consulting Physician Otolaryngology 09/27/21 documented as of this encounter
--- OUTSIDE RECORDS SUMMARY | 2024-08-08 21:55 | XMS_ITS | Encounter Summary ---
Author Organization [facility] Address [address] [place] [address] Phone Care Team Providers Care Computer Technology Instructor Name Role Phone Liliana May MD Primary Care Provider Moose Singleton MD Unavailable [phone] Reason for Visit * Reason Comments HAT IRONER Initial Evaluation Swallow evaluatio n Encounter Details Date Type Department Care Team (Late st Contact Info) Description 10/26/2021 2:00 PM CDT Therapy [facility] Otolaryngology [facility] Advanced Medicine 11th [place] [address] [place] [address] Della Hensley, HAT IRONER [address] [place], [place] [id number] Oral phase dysphagia (Primary Dx) Social History [...] this encounter Progress Notes * Della Hensley, HAT IRONER - 10/26/2021 2:00 PM CDT Della Hensley M.A., [facility]-HAT IRONER Speech-Language Pathologist Swallowing Evaluation Name: Chilo Cross [...] [] Ice Chips [x] Thin Liquids [] Waikele [] Honey [x] Puree [x] Semi Solid [...] phase documented in this encounter Care Teams Computer Technology Instructor Relationship Specialty Start Date End Date Liliana May MD [address] [place] [address] PCP - General Family Medicine 01/01/21 Moose Singleton MD [address] [place] [address] Consulting Physician Otolaryngology 09/27/21 documented as of this encounter
--- OUTSIDE RECORDS SUMMARY | 2024-08-08 21:55 | XMS_ITS | Encounter Summary ---
Author Organization [facility] Address [address] [place] [address] Phone Care Team Providers Care Supervisor Machine Workers Name Role Phone Liliana May MD Primary Care Provider Encounter Details Date Type Department Care Team (Late st Contact Info) Description 09/21/2021 Orders Only [place] [facility] ([facility]) - [facility] ENT [address] [facility] Advanced Medicine 11th [place] [address] [place] [address] Moose Singleton MD [address] [place] [address] 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) [...] 2 added in this encounter Care Teams Supervisor Machine Workers Relationship Specialty Start Date End Date Liliana May MD [address] [place] [address] PCP - General Family Medicine 01/01/21 documented as of this encounter
--- OUTSIDE RECORDS SUMMARY | 2024-08-08 21:55 | XMS_ITS | Encounter Summary ---
Author Organization [facility] Healthcare Address [address] [place] [address] Care Team Providers Care Lead Caregiver Name Role Phone Liliana May MD Primary Care Provider Moose Singleton MD Unavailable [phone] Reason for Referral * Diagnostic Imaging (Routine) - Closed Specialty Diagnoses / Procedures Referred By Johanna perdomo Referred To Contact Diagnoses Thyroid nodule Procedures US Thyroid Moose Singleton MD [address] [address] Phone: tel: fax: [address] [phone] Referral ID Status Reason Start Date Expiration Date Visits Re quested Visits Authorized [id number] Closed 09/29/2021 10/29/2022 1 1 ONAL INJURY LEGAL ASSISTANT Reason for Visit * Diagnostic Imaging (Routine) - Closed Specialty Diagnoses / Procedures Referred By Johanna perdomo Referred To Contact Diagnoses Thyroid nodule Procedures US Thyroid Moose Singleton MD [address] [place] [address] Phone: tel: fax: [address] [phone] Referral ID Status Reason Start Date Expiration Date Visits Re quested Visits Authorized [id number] Closed 09/29/2021 10/29/2022 1 1 Encounter Details Date Type Department Care Team (Latest Contact Info) Description 10/01/2021 9:25 AM PERSONAL INJURY LEGAL ASSISTANT - 10/01/2021 11:59 PM PERSONAL INJURY LEGAL ASSISTANT Hospital Encounter [facility] [address] [place] [address] Moose Singleton MD [address] [place] [address] Thyroid nodule Discharge Disposition: Discharge to home [...] Yarely Kingston RDMS - 10/01/2021 12:40 PM PERSONAL INJURY LEGAL ASSISTANT Fine Needle Aspiration Biopsy WHAT YOU NEED [...] ask them during your visits. ?? 2017 [employer] Information is for End User's use only and may not be sold, redistributed or otherwise used for commercial purposes. All illustrations and images included in CareNotes?? are the copyrighted property of [employer]. or [employer]. The above information is an dental aide only. It is not intended as medical advice for individual conditions or treatments. Talk to your doctor, nurse or pharmacist before following any medical regimen to see if it is safe and effective for you. ONAL INJURY LEGAL ASSISTANT documented in this encounter Medications at Time [...] Read Routine (OP Routine) 10/01/2021 1:42 PM PERSONAL INJURY LEGAL ASSISTANT Thyroid nodule documented in this encounter Results * US Thyroid (10/01/2021 1:42 PM PERSONAL INJURY LEGAL ASSISTANT) Anatomical Region Laterality Modality Head and Neck N/A Ultrasound 10/01/2021 1:57 PM PERSONAL INJURY LEGAL ASSISTANT Impressions 10/01/2021 2:39 PM PERSONAL INJURY LEGAL ASSISTANT 1. Follow-up thyroid ultrasound in one year is recommended for the right thyroid nodules. Dictated by: Edgardo Zamora M.D. The radiology attending physician has personally reviewed this study, and had reviewed and/or edited this written report and agrees with it. Electronically signed by: Reinier Reese M.D. , PHD Narrative 10/01/2021 2:39 PM PERSONAL INJURY LEGAL ASSISTANT EXAMINATION: THYROID SONOGRAM HISTORY: ??Floor of mouth [...] goiter documented in this encounter Care Teams Lead Caregiver Relationship Specialty Start Date End Date Liliana May MD [address] [place] [address] PCP - General Family Medicine 01/01/21 Moose Singleton MD [address] [place] [address] Consulting Physician Otolaryngology 09/27/21 documented as of this encounter
--- OUTSIDE RECORDS SUMMARY | 2024-08-08 21:55 | XMS_ITS | Encounter Summary ---
Author Organization [facility] Healthcare Address [address] [place] [address] Care Team Providers Care Cylinder Devalver Name Role Phone Liliana May MD Primary Care Provider Moose Singleton MD Unavailable [phone] Encounter Details Date Type Department Care Team (Late st Contact Info) Description 10/08/2021 Telephone [facility] Radiation Oncology at [facility] [address] [place] [address] Scot Pollock MD [address] [facility] [address] [place] [address] Social History Tobacco Use Types Packs/Day Years [...] a primary care physician? Y Dr. May [phone] Have you been seen by a cancer physician? Y Dr Singleton Have you seen a radiation doctor? N Have you seen a surgeon for your cancer? Y Dr Singleton Are there any other specialists in your care? Y Math And Science Division Chair Dr Ulices Gao [phone] Yes/No Date(s) Location(s) Biopsy performed? Y 09/04/2021 [facility] Squires Did you have a CT scan? Y [facility] Did you have a PET scan? ? Did you have a (MRI) scan? ? Did you receive chemotherapy? N Did you receive radiation? N Since your cancer diagnosis, have you been in the hosptial or had surgery? N TER MACHINE TENDER documented in this encounter Plan of Treatment Not on file documented as of this encounter Visit Diagnoses Not on filedocumented in this encounter Care Teams Cylinder Devalver Relationship Specialty Start Date End Date Liliana May MD [address] [address] PCP - General Family Medicine 01/01/21 Moose Singleton MD [address] [facility] [address] [place] [address] Consulting Physician Otolaryngology 09/27/21 documented as of this encounter
--- OUTSIDE RECORDS SUMMARY | 2024-08-08 21:55 | XMS_ITS | Encounter Summary ---
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 ENT [address] [facility] Advanced Medicine 11th [place] [address] [place] [address] Moose Singleton MD [address] [place] [address] FOM (cancer of floor of [...] Comments Blood Pressure 146/73 09/28/2021 10:34 AM IT SECURITY ANALYST Pulse 78 09/28/2021 10:34 AM IT SECURITY ANALYST Temperature - - Respiratory Rate - - Oxygen Saturation - - Inhaled Oxygen Concentration - - Weight 70.8 kg (156 lb) 09/28/2021 10:34 AM IT SECURITY ANALYST Height 182.9 cm (6') 09/28/2021 10:34 AM IT SECURITY ANALYST Body Mass Index 21.16 09/28/2021 10:34 AM IT SECURITY ANALYST documented in this encounter Progress Notes * Moose Singleton MD - 09/28/2021 10:20 AM CST [facility] Department of Otolaryngology Division of Head and Neck Surgery 09/28/2021 Chilo Cross 1950 [phone] Referred by: Tavia Med onc: TBD Rad [...] are normal. The limited view of the [place] is unremarkable. 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
--- OUTSIDE RECORDS SUMMARY | 2024-08-08 21:55 | XMS_ITS | Encounter Summary ---
Author Organization [facility] Address [address] [place] [address] Phone Care Team Providers Care Dinkey Dispatcher Name Role Phone Liliana May MD Primary Care Provider Moose Singleton MD Unavailable [phone] Encounter Details Date Type Department Care Team (Late st Contact Info) Description 10/16/2021 Telephone [place] [facility] ([facility]) - [facility] [address] [facility] Advanced Medicine [address]th [place] [address] [place] [address] Bety Keith, RN Social History [...] 20 minutes. Instructed to send pictures via [employer] but had technical difficulties. After speaking with Dr. Singleton, Pt still complains of spitting out some blood, instructed patient togo to ER. He is accompanied by and will be arriving shortly. TIC BLOCK BOILER RELINER documented in this encounter Plan of Treatment Not on file documented as of this encounter Visit Diagnoses Not on filedocumented in this encounter Care Teams Dinkey Dispatcher Relationship Specialty Start Date End Date Liliana May MD [address] [facility] [address] [place] [address] PCP - General Family Medicine 01/01/21 Moose Singleton MD [address] [place] [address] Consulting Physician Otolaryngology 09/27/21 documented as of this encounter
--- OUTSIDE RECORDS SUMMARY | 2024-08-08 21:55 | XMS_ITS | Encounter Summary ---
Author Organization [facility] Address [address] [facility] [address] [place] [address] Care Team Providers Care Garage Construction Equipment Mechanic Name Role Phone Liliana May MD Primary Care Provider Encounter Details Date Type Department Care Team (Late st Contact Info) Description 05/04/[address] [facility] Cardiology [address] [facility] [address] [place] [address] Na Covarrubias NP [address] [facility] [address] [place] [address] Social History Tobacco Use Types [...] on filedocumented in this encounter Care Teams Garage Construction Equipment Mechanic Relationship Specialty Start Date End Date Liliana May MD [address] [facility] [address] [place], [place] [id number] PCP - General Family Medicine 01/01/21 documented as of this encounter
--- OUTSIDE RECORDS SUMMARY | 2024-08-08 21:55 | XMS_ITS | Encounter Summary ---
Author Organization [facility] Address [address] [place] [address] Phone Care Team Providers Care Principal Technical Writer Name Role Phone Liliana May MD Primary Care Provider Moose Singleton MD Unavailable [phone] Encounter Details Date Type Department Care Team (Late st Contact Info) Description 10/01/2021 Orders Only [place] [facility] ([facility]) - [facility] ENT [address] [facility] Advanced Medicine 11th [place] [address] [place] [address] Moose Singleton MD [address] [place] [address] FOM (cancer of floor of [...] Results * Surgical pathology (10/02/2021 11:27 AM DRAFTER PATENT) Tissue (Miscellaneous) 10/02/2021 11:27 AM DRAFTER PATENT 10/02/2021 11:27 AM DRAFTER PATENT Narrative [facility] - 10/05/2021 10:52 AM DRAFTER PATENT EPIC results best viewed via link to PDF [facility] Pathology Consult Service [address], [address], [place] [address] Note to Patients: This report [...] SURGICAL PATHOLOGY REPORT * Consult Report * [facility] is providing an additional review of previously collected tissue. FINAL Patient Name: ??CHILO JI Address: ??[address] [place], [place] [address], ?[place], [place] ??[address] Gender: ??M : ??1950 (Age: 71) Hospital #: ??[id number] Patient Type: ??[facility] Location: ??PVTOP Taken: ??10/02/2021 Received: ??10/02/2021 Accessioned: ??10/02/2021 Reported: ??10/05/2021 Physician(s): Moose Singleton M.D., PH.D. [facility] Oral [facility] Immunochemist Laboratory [address], [place] [address] P: [phone] F: [phone] Diagnosis: Consult material received for review from [facility] [place], [place] (OSC [id number]; 09/04/2021): Oral cavity, anterior floor of the [...] Received for review is one slide labeled [id number], accompanied by the corresponding pathology reports. The materials originated from [facility] [place], [place]. Selected slide(s) may be digitally scanned for our files, and all material is returned to the referring institution, along with a copy of our final report. Any testing required for diagnostic purposes was performed in the Department of Pathology and Immunology at [facility], [address] [place] [address] CLIA # [id number] The performance characteristics of the testing cited in this report (if any) were determined by the ??[facility] Department of Pathology and Immunology [facility], as part of an ongoing quality lab technician program and in compliance with federally [...] and the performance characteristics determined by the [facility], [facility] Department of Pathology and Immunology. ??It has not been cleared or approved by the U.S. Food and Drug Administration. ??Any test designated as LDT was developed and its performance characteristics determined by [facility]. It has not been cleared or approved by the FDA. This test is used for clinical purposes and should not be regarded as investigational or for research. Report images and/or scanned reports, if included, only viewable in PDF version of report. 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
--- OUTSIDE RECORDS SUMMARY | 2024-08-08 21:55 | XMS_ITS | Encounter Summary ---
Author Organization [facility] Address [address] [place] [address] Phone Care Team Providers Care Center Manager Name Role Phone Liliana May MD Primary Care Provider Moose Singleton MD Unavailable [phone] Encounter Details Date Type Department Care Team (Late st Contact Info) Description 10/02/2021 Orders Only [facility] [address] [place] [address] Moose Singleton MD [address] [place] [address] FOM (cancer of floor of mouth) ([facility]/HCC) ([facility]) Social History Tobacco Use Types Packs/Day Years [...] SURGICAL PATHOLOGY Routine 10/02/2021 11 :27 AM INVESTMENT SALES ASSISTANT 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) (HCC) documented in this encounter Results * Surgical pathology (10/02/2021 11:27 AM INVESTMENT SALES ASSISTANT) Tissue (Miscellaneous) 10/02/2021 11:27 AM INVESTMENT SALES ASSISTANT 10/02/2021 11:27 AM INVESTMENT SALES ASSISTANT Narrative [facility] - 10/05/2021 10:52 AM INVESTMENT SALES ASSISTANT EPIC results best viewed via link to PDF [facility] Pathology Consult Service [address], [place] [address] Note to Patients: This report [...] SURGICAL PATHOLOGY REPORT * Consult Report * [facility] is providing an additional review of previously collected tissue. FINAL Patient Name: ??CHILO JI Address: ??[address] [place] [address] [place], ?[place], [place] ??[address] Gender: ??M : ??1950 (Age: 71) [facility] #: ??[id number] Patient Type: ??WU Location: ??PVTOP Taken: ??10/02/2021 Received: ??10/02/2021 Accessioned: ??10/02/2021 Reported: ??10/05/2021 Physician(s): Moose Singleton M.D., PH.D. [facility] [place] [employer] [facility] [address], [place] [address] P: [phone] F: [phone] Diagnosis: Consult material received for review from [facility], [place], [place] (OSC V06-2015; 09/04/2021): Oral cavity, anterior floor of the [...] Received for review is one slide labeled [id number], accompanied by the corresponding pathology reports. The materials originated from [facility], [place], [place]. Selected slide(s) may be digitally scanned for our files, and all material is returned to the referring institution, along with a copy of our final report. Any testing required for diagnostic purposes was performed in the Department of Pathology and Immunology at [facility], [address] [place] [id number] CLIA # [id number] The performance characteristics of the testing cited in this report (if any) were determined by the ??[facility] Department of Pathology and Immunology [facility], as part of an ongoing quality assurance qa lab technician program and in compliance with [...] and the performance characteristics determined by the [facility], [facility] Department of Pathology and Immunology. ??It has not been cleared or approved by the U.S. Food and Drug Administration. ??Any test designated as LDT was developed and its performance characteristics determined by [facility]. It has not been cleared or approved by the FDA. This test is used for clinical purposes and should not be regarded as investigational or for research. Report images and/or scanned reports, if included, only viewable in PDF version of report. 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
--- OUTSIDE RECORDS SUMMARY | 2024-08-08 21:55 | XMS_ITS | Encounter Summary ---
Author Organization [facility] Address [address] [place] [address] Phone Care Team Providers Care Loan Servicing Specialist Name Role Phone Liliana May MD Primary Care Provider Moose Singleton MD Unavailable [phone] Encounter Details Date Type Department Care Team (Late st Contact Info) Description 09/28/2021 Orders Only [facility] ([facility]) - [facility] ENT [address] [facility] 11th [place] [address] [place] [address] Moose Singleton MD [address] [place] [address] Thyroid nodule (Primary Dx) Social [...] 01/21/2008 added in this encounter Care Teams Loan Servicing Specialist Relationship Specialty Start Date End Date Liliana May MD [address] [place] [address] PCP - General Family Medicine 01/01/21 Moose Singleton MD [address] [place] [address] Consulting Physician Otolaryngology 09/27/21 documented as of this encounter
--- OUTSIDE RECORDS SUMMARY | 2024-08-08 21:55 | XMS_ITS | Encounter Summary ---
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) Procedures CT Soft Tissue Neck with Contrast Moose Singleton MD [address] [place] [address] Phone: tel: fax: [address] [address] Referral ID Status Reason Start Date Expiration Date Visits Re quested Visits Authorized [id number] Closed 02/01/2022 03/03/2023 1 1 Reason for Visit * MRI/CAT/PET Scan (Routine) - Closed Specialty Diagnoses / Procedures Referred By Johanna perdomo Referred To Contact Radiology Diagnoses 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 [address] [place] [address] Moose Singleton MD [address] [place] [address] FOM (cancer of floor of mouth) ([facility]/HCC) ([facility]) Discharge Disposition: Discharge to home or [...] limited by streak artifact secondary to dental evangelical. However no definitive evidence of residual or [...] are normal. The limited view of the [place] is unremarkable. Right lens replacement, [...] are normal. The limited view of the [place] is unremarkable. Right lens replacement, [...] limited by streak artifact secondary to dental evangelical. However no definitive evidence of residual or [...] Creatinine POC 1.3 0.7 - 1.3 mg/dL [facility] Blood 05/17/2022 1:15 PM CDT 05/17/2022 1:15 PM CDT us Liliana May MD LAB POCT ORDERABLES - D EVICE Final Result [facility] Department [place] [address] documented in this encounter Visit Diagnoses Diagnosis [...] 05/2022 documented in this encounter Care Teams Sticker On Relationship Specialty Start Date End Date Liliana May MD [address] [place] [address] PCP - General Family Medicine 01/01/21 Moose Singleton MD [address] [place] [address] Consulting Physician Otolaryngology 09/27/21 documented as of this encounter
--- OUTSIDE RECORDS SUMMARY | 2024-08-08 21:55 | XMS_ITS | Encounter Summary ---
Author Organization [facility] Healthcare Address [address] [facility] [place] [address] Care Team Providers Care General Sales Manager Name Role Phone Liliana May MD Primary Care Provider Moose Singleton MD Unavailable [phone] Reason for Visit * Reason Comments Post-op Problem Encounter Details Date Type Department Care Team (Latest Contact Info) Description 10/16/2021 3:46 PM WATCH DIAL MAKER - 10/18/2021 10:11 AM CDT Hospital Encounter [facility] [address] [place] [address] Bret Blas MD [address] [place] [address] Moose Singleton MD [address] [place] [address] Oral bleeding (Primary Dx) Discharge Disposition: Discharge [...] (147 lb 8 oz) 10/16/2021 10:25 PM WATCH DIAL MAKER Height 182.9 cm (6') 10/16/2021 12:39 PM WATCH DIAL MAKER Body Mass Index 20 10/16/2021 12:39 PM WATCH DIAL MAKER documented in this encounter Discharge Diagnoses Diagnosis Postprocedural hemorrhage of a digestive system organ or structure following other procedure - POSTPROCEDURAL HEMORRHAGE OF A DIGESTIVE SYSTEM ORGAN OR STRUCTURE FOLLOWING OTHER PROCEDURE Malignant neoplasm of floor of mouth, unspecified (HCC) - MALIGNANT NEOPLASM OF FLOOR OF MOUTH, UNSPECIFIED Unspecified atrial fibrillation (HCC) - UNSPECIFIED ATRIAL FIBRILLATION Atherosclerotic heart disease of [place] coronary artery without angina pectoris - ATHEROSCLEROTIC HEART DISEASE OF [place] CORONARY ARTERY WITHOUT ANGINA PECTORIS Hypertensive heart [...] (HCC) - CHRONIC OBSTRUCTIVE PULMONARY DISEASE, UNSPECIFIED retirement (current) use of anticoagulants - PENITENTIARY (CURRENT) USE OF ANTICOAGULANTS Long-term (current) use of anticoagulants retirement (current) use of antithrombotics/antiplatelets - PENITENTIARY (CURRENT) USE OF ANTITHROMBOTICS/ANTIPLATELETS Contact with and (suspected) exposure to covid-19 - CONTACT WITH AND (SUSPECTED) EXPOSURE TO COVID-19 documented in this encounter Discharge Summaries * Maria Elena Wise MD - 10/17/2021 9:51 AM CST Inpatient Discharge Summary BRIEF OVERVIEW Admitting Provider: Moose Singleton MD Discharge Provider: Moose Singleton MD Primary Care Physician at Discharge: Liliana May MD [phone] Admission Date: 10/16/2021 Discharge Date: 10/17/2021 Admission Location: [facility] Problems/Diagnoses: Principal Problem: Oral bleeding Resolved Problems: [...] Singleton's office. He wasadvised to present to [facility] for further evaluation. He denies any pain, fevers, chills, nausea,vomiting, difficulty breathing or with PO intake. Hospital Course: The patient's bleeding stopped with application of TXA soaked gauze to his floor of mouth. He was admitted to the head and neck surgery service for overnight observation. [place] [id number]. There were no acute events. He had [...] Diet Full Liquid Diet effective now Question: ([facility]) Diet type Answer: Full Liquid 10/17/21 [...] Inhale 1 puff every morning Generic drug: mubrvjnxxhb-fazvoxfua-ckjjhapo * This list has 2 medication(s) that [...] Singleton MD at 10/18/2021 11:40 AM CDT H DIAL MAKER documented in this encounter Discharge Instructions * Discharge Instructions* Maria Elena Wise MD - 10/17/2021 12:39 PM WATCH DIAL MAKER ENT Discharge Instructions When to call your [...] needed. - Stool Softener: Take stool softener (Ugns-fgt-paneibv or prescription) while taking narcotic medication to prevent constipation. Laxatives not recommended. - Anticoagulation/antiplatelet agents: Restart your Eliquis in 7 days (10/24/21) and your Plavix 3-4days after your Eliquis if you have no more bleeding. Follow up: You should follow up in [facility] *'s clinic as scheduled below. [address] [place] [id number] OTHER FOLLOW UP: 1. PCP - for management of all chronic illnesses Future Appointments Date Time Provider Department Center 10/26/2021 2:00 PM Della Hensley SLP [facility] [place] 10/26/2021 3:20 PM Moose Singleton MD CLN [facility] [place] Phone numbers ??? Appointment Scheduling: ??? Urgent Concerns after hours or Weekends: Call and ask for the ENT resident inbound sales consultant. ??? During Regular Business Hours (8am-5pm Tuesday through Tuesday): Dr. Singleton (Bety Keith RN): [phone] Questions: If you have any concerns or questions, or develop worrisome symptoms such as worsening pain or swelling, bleeding, fever, or vomiting, call your doctor. H DIAL MAKER documented in this encounter Medications at Time [...] of Transportation: Personal vehicle. Health Insurance Coverage: [employer] Prescription Coverage: yes Pharmacy: [facility] in [place] Primary Care Provider: Liliana May MD Prior to Admission: Primary Caregiver: Self Support System: Spouse/Significant Other Support system contact info (name, phone, availablity): [place] [phone] Home Care Services: No Durable Medical Equipment: [...] Collaboration with patient, MD, direct care nurse, Cnc Machinist 2Nd Shift, and other members of the health care team to assure needed interventions completed. 2. Return patient to optimal level of self-care post discharge. 3. Boomswing Operator will follow for Discharge Planning - interventions [...] with the aftercare plan. Lorena Benton RN H DIAL MAKER * Maria Elena Wise MD - 10/17/2021 [...] QAM chlorhexidine, 15 mL, mouth/throat, TID PC jrlgpjgmjer-bfeutrrvl-vqkrzbew, 1 puff, inhalation, Daily (RT) losartan, 25 [...] Tue Daytime: Head & Neck PA at [phone] (backup Tue-Tue Days): See HYACINTH for [facility] Head & Neck (pw: [id number]) Weekends & After 6pm: ENT Consult Cosigned by Moose Singleton MD at 10/18/2021 11:40 AM CDT H DIAL MAKER * Rachel Ugarte MSW - 10/16/2021 10:06 [...] at this time. Rachel Ugarte LMSW 10/16/21 H DIAL MAKER documented in this encounter Consult Notes * [...] Singleton's office. He wasadvised to present to [facility] ED for further evaluation. He denies any [...] questions or concerns. David Moreno MD Otolaryngology [phone] For established consults during business hours, please call [facility] [phone]. Weekends/afterhours: ENT Consult Cosigned by Moose Singleton MD at 10/19/2021 8:49 PM CDT H DIAL MAKER H DIAL MAKER H DIAL MAKER documented in this encounter ED Notes * [...] Oral bleeding, Active Bret Blas MD 10/16/21 224 H DIAL MAKER * Bret Blas MD - 10/16/2021 4:09 [...] (cancer of floor of mouth) (CMS/HCC) ([facility]) 09/22/2021 Past Medical History: Diagnosis Date ??? Atrial fibrillation (CMS/HCC) (HCC) ??? CAD (coronary artery disease) ??? 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 CHF (congestive heart failure) (CMS/HCC) (HCC) ??? COPD (chronic obstructive pulmonary disease) (CMS/HCC) ([facility]) ? ? Ejection fraction < 50% ??? [...] alert. Psychiatric: Mood and Affect: Mood normal. [facility] Medical Decision Making Differential Diagnosis or Management [...] Oral bleeding, Active Melinda Theodore MD 10/16/21 7518 Bret Blas MD 10/18/21 1810 H DIAL MAKER * Vahid Martinez RN - 10/16/2021 3:46 PM CST Bed: ED2- Expected date: 10/16/21 Expected time: 12:37 PM Means of arrival: Car Comments: Vahid Martinez RN 10/16/21 1546 H DIAL MAKER * Fifi Buckley RN - 10/16/2021 12:42 [...] tolerating secretions, no difficulty swallowing. Denies SOB. H DIAL MAKER documented in this encounter Miscellaneous Notes * [...] Augie Bowling RN - 10/17/2021 9:13 AM WATCH DIAL MAKER Problem: Lack of Knowledge: Goal: Ability to [...] in bed, no bleeding at this time. H DIAL MAKER * Plan of Care - Domitila Tejeda RN - 10/16/2021 10:37 PM CST Goals: monitor for bleeding, Summary: H DIAL MAKER * ED Procedure Note - Bret Blas MD - 10/16/2021 6:30 PM WATCH DIAL MAKER Associated Order(s): Critical Care Procedure Critical Care [...] the medical record. Bret Blas MD 10/16/211831 H DIAL MAKER * ED Procedure Note - Bret Blas MD - 10/16/2021 4:32 PM WATCH DIAL MAKER Associated Order(s): ECG 12 lead Procedure ECG [...] Moderate risk Bret Blas MD 10/16/21 1633 H DIAL MAKER * Plan of Care - Jenn Huertas RN - 10/16/2021 12:53 PM CST As part of the readmission prevention initiative, ED CM receives an automated alert on patient who was discharged from [facility] inpatient admission </=7 days (DC 10/11/21; ED treatment team aware). Pt presents to ED cc:bleeding in mouth (pt had oral surgery to remove cancer on 10/09/21). Pt instructed to restart anticoagulation yesterday which he did prior to going to bed and then woke up with the bleeding. ED workup/orders/tx plan pending. Chart review completed. Upcoming scheduled appts per [employer] EMR include: follow up appts with surgeon on 10/26 Identified high risk SDOH (social determinants of health) include: medium risk for smoking No ED CM/SW needs identified at this time, but please contact ED CM ([phone]) for questions and/or prior to admission order placed so that alternatives to admission (if any) can be discussed. H DIAL MAKER documented in this encounter Plan of Treatment Not on file documented as of this encounter Procedures Procedure Name Priority Date/Time Associated Diagnosis Comments INFLUENZA A/B, RSV, AND COVID-19 PCR Routine 10/16/2021 7:21 PM WATCH DIAL MAKER [place] CRITICAL CARE ILL/INJURED PATIENT INIT 30-74 MIN Routine 10/16/2021 6:30 PM WATCH DIAL MAKER ECG 12-LEAD Routine 10/16/2021 4:32 PM WATCH DIAL MAKER EGFR STAT 10/16/2021 3:56 PM WATCH DIAL MAKER APTT STAT 10/16/2021 3:56 PM WATCH DIAL MAKER PROTIME-INR STAT 10/16/2021 3:56 PM WATCH DIAL MAKER CBC WITHOUT DIFFERENTIAL Routine 10/16/2021 3:56 PM WATCH DIAL MAKER BASIC METABOLIC PANEL STAT 10/16/2021 3:56 PM WATCH DIAL MAKER documented in this encounter Results * Influenza A/B, RSV, and COVID-19 PCR Nasopharyngeal (10/16/2021 7:21 PM WATCH DIAL MAKER) COVID-19 RNA Negative Negative [facility] Influenza A RNA Negative Negative [facility] Influenza B RNA Negative Negative [facility] RSV RNA Negative Negative [facility] Comment: Interpretive data: Testing performed by [facility] ([phone]). This test is performed using the [employer] Xpert Xpress CoV-2/Flu/RSV plus assay. This is a multiplex, real-time reverse transcriptase PCR assay intended for the qualitative detection of nucleic acid from SARS-CoV-2, influenza A, influenza B, and respiratory syncytial virus. This assay has been reviewed by the FDA for Emergency Use Authorization (EUA). The performance characteristics have been verified by the [facility]. Results must be considered in the clinical context, and a negative result does not rule out infection. Interpretive Data last revised 2021. First COVID-19 test? No [facility] Employeed in healthcare? No [facility] Group care resident? No [facility] Hospitalized? No [facility] Is patient in ICU? No [facility] Symptomatic as defined by CDC? No [facility] Nasopharyngeal 10/16/2021 7: 21 PM WATCH DIAL MAKER 10/16/2021 7:46 PM WATCH DIAL MAKER Narrative [facility] - 10/16/2021 8:39 PM WATCH DIAL MAKER Reason for testing?->Bed placement or semi-private room Known exposure to confirmed or suspected COVID-19 case?->No us Melinda Theodore MD LAB MICROBIOLOGY - GENERAL ORDE RABLES Final Result [facility] [place] [address] * [place] CRITICAL CARE ILL/INJURED PATIENT INIT 30-74 MIN (10/16/2021 6:30 PM WATCH DIAL MAKER) Narrative Bret Blas MD - 10/16/2021 6:30 PM WATCH DIAL MAKER Bret Blas MD ? 10/16/2021 ??6:32 PM [...] Result * ECG 12-LEAD (10/16/2021 4:32 PM WATCH DIAL MAKER) Narrative [facility] - 10/16/2021 4:32 PM WATCH DIAL MAKER Bret Blas MD ? 10/16/2021 ??4:33 PM [...] Comments: Moderate risk Bret Blas MD 10/16/21 6313 us Melinda Theodore MD ECG ORDERABLES Final Result [facility] * (ABNORMAL) eGFR (10/16/2021 3:56 PM WATCH DIAL MAKER) eGFR 60(L) 90 - 130 mL/min/1. 73 m2 [facility] Comment: Interpretive Data Reference Interval Normal [...] last reviewed 2021. Blood 10/16/2021 3:56 PM WATCH DIAL MAKER 10/16/2021 4:19 PM WATCH DIAL MAKER us Melinda Theodore MD LAB BLOOD ORDERABLES Final Resu lt [facility] Department [place] [address] * aPTT (10/16/2021 3:56 PM WATCH DIAL MAKER) aPTT 35 27 - 37 sec [facility] Comment: Interpretive Data Therapeutic heparin range: 60.0 - 94.0 seconds. Based on correlation with therapeutic heparin activity range of 0.3-0.7 Units/mL. Current interpretive data was last revised on 2020. Blood 10/16/2021 3:56 PM WATCH DIAL MAKER 10/16/2021 4:12 PM WATCH DIAL MAKER Melinda Theodore MD LAB BLOOD ORDERABLES Final Resu lt Performing Organization Address [facility] de Phone Number [facility] [place] [address] * (ABNORMAL) Protime-INR (10/16/2021 3:56 PM WATCH DIAL MAKER) PT 14.0(H) 9.5 - 13.6 sec [facility] INR 1.3(H) 0.9 - 1.2 [facility] Comment: Interpretive data Oral anticoagulant therapeutic ranges: Venous thromboembolism prophylaxis or treatment: 2.0-3.0 CARDIOLOGY Standard range: 2.0-3.0 High-intensity range: 2.5-3.5 Refer to indication-specific guidelines for appropriate target ranges for prosthetic heart valve replacement. Current interpretive data was last revised on 2019. Blood 10/16/2021 3:56 PM WATCH DIAL MAKER 10/16/2021 4:12 PM WATCH DIAL MAKER Melinda Theodore MD LAB BLOOD ORDERABLES Final Resu lt Performing Organization Address [facility] de Phone Number [facility] [place] [address] * (ABNORMAL) Basic metabolic panel (10/16/2021 3:56 PM WATCH DIAL MAKER) Sodium 136 135 - 145 mmol/L [facility] Potassium, pl 4.4 3.3 - 4.9 mmol/L [facility] Chloride 97 97 - 110 mmol/L [facility] CO2 28 22 - 32 mmol/L [facility] Anion gap 11 2 - 15 mmol/L [facility] BUN 37(H) 8 - 25 mg/dL [facility] Creatinine 1.29 0.80 - 1.30 mg/dL [facility] Glucose 102 70 - 199 mg/dL [facility] Comment: Interpretive Data Fasting glucose >/= 126 [...] 2017. Calcium 10.1 8.5 - 10.3 mg/dL [facility] Blood 10/16/2021 3:56 PM WATCH DIAL MAKER 10/16/2021 4:19 PM WATCH DIAL MAKER us Melinda Theodore MD LAB BLOOD ORDERABLES Final Resu lt [facility] Department [place] [address] * (ABNORMAL) CBC without differential (10/16/2021 3:56 PM WATCH DIAL MAKER) WBC 17.5(H) 3.8 - 9.9 K/cumm [facility] Hgb 16.0 13.0 - 17.5 g/dL [facility] Hct 49.4 38.9 - 50.3 % [facility] Plt 268 150 - 400 K/cumm [facility] MPV 10.2 9.1 - 12.3 fL [facility] RBC 5.35 4.30 - 5.80 M/cumm [facility] MCV 92.3 81.3 - 96.4 fL [facility] MCH 29.9 27.1 - 33.3 pg [facility] MCHC 32.4 32.3 - 35.7 g/dL [facility] RDW CV 13.1 11.1 - 14.9 % [facility] RDW SD 43.9 35.7 - 48.1 fL [facility] NRBC abs 0.00 0.00 - 0.01 K/cumm [facility] Blood 10/16/2021 3:56 PM WATCH DIAL MAKER 10/16/2021 4:19 PM WATCH DIAL MAKER Melinda Theodore MD LAB BLOOD ORDERABLES Final Resu lt [facility] Department [place] [address] documented in this encounter Visit Diagnoses Diagnosis [...] Tue10/16/21 at 1931 Given 10/17/2021 5:30 AM WATCH DIAL MAKER 1,000 mg albuterol 2.5 mg/0.5 mL nebulizer solution 2.5 mg 2.5 mg, nebulization, Every 4 hours PRN (respiratory therapy aide), wheezing, Starting on Tue10/16/21 at 1936 amoxicillin-clavulanate (AUGMENTIN) 875-125 mg per tablet 875 mg of amoxicillin 875 mg of amoxicillin, oral, 2 times daily, First dose on Tue10/16/21 at 2100, For 9 days, Indications: Other (complete free text reason below), Surgical PPxIndications:Other (complete free text reason below),Surgical PPx Given 10/18/2021 8:40 AM CDT 875 mg of amoxicillin Given 10/17/2021 8:08 PM WATCH DIAL MAKER 875 mg of amoxicillin Given 10/17/2021 8:30 AM WATCH DIAL MAKER 875 mg of amoxicillin calcium carbonate-vitamin D3 1,250mg (500mg elemental) - 5 mcg (200 units) per tablet 1 tablet 1 tablet, oral, Every morning, First dose on Tue10/17/21 at 0900 Given 10/18/2021 8:40 AM CDT 1 tablet Given 10/17/2021 8:30 AM WATCH DIAL MAKER 1 tablet chlorhexidine (PERIDEX) 0.12 % solution 15 mL 15 mL, mouth/throat, 3 times daily after meals, First dose on Tue10/16/21 at 1938 Given 10/18/2021 8:40 AM CDT 15 mL Given 10/17/2021 5:54 PM WATCH DIAL MAKER 15 mL Given 10/17/2021 1:08 PM WATCH DIAL MAKER 15 mL dextrose 5% and Lactated Ringer's infusion 75 mL/hr, intravenous, Continuous, Starting on Tue10/16/21 at 2315 Rate/Dose Verify 10/17/2021 9:00 AM WATCH DIAL MAKER 75 mL/hr 75 mL/hr Rate/Dose Verify 10/17/2021 8:00 AM WATCH DIAL MAKER 75 mL/hr 75 mL/h r Rate/Dose Verify 10/17/2021 7:00 AM WATCH DIAL MAKER 75 mL/hr 75 mL/h r jabhmbnvrez-yhkgvvvqx-hhxhkyhl (TRELEGY ELLIPTA) 100-62.5-25 mcg inhaler 1 puff 1 puff, inhalation, Daily (respiratory therapy aide), First dose on Tue10/16/21 at 1938, Rinse mouth with water after use. Do not swallow. Given 10/18/2021 8:45 AM CDT 1 puff Given 10/17/2021 1:06 PM WATCH DIAL MAKER 1 puff fpkhgaotmby-ummyefvpg-nsshkdny (TRELEGY ELLIPTA) 100-62.5-25 mcg inhaler 1 puff 1 puff, inhalation, Daily, First dose (after last modification) on Tue10/19/21 at 0900, Rinse mouth with water after use. Do not swallow. HYDROmorphone (DILAUDID) injection 0.5 mg 0.5 mg, intravenous, Administer over 2 Minutes, Once, On Tue10/16/21 at 1855, For 1 dose Given 10/16/2021 7:00 PM WATCH DIAL MAKER 0.5 mg ipratropium (ATROVENT) 0.02 % nebulizer solution 0.5 mg 0.5 mg, nebulization, Every 4 hours PRN (respiratory therapy aide), wheezing, shortness of breath, Starting on Tue10/16/21 at 1936 losartan (COZAAR) tablet 25 mg 25 mg, oral, Every morning, First dose on Tue10/17/21 at 0900 Given 10/18/2021 8:42 AM CDT 25 mg Given 10/17/2021 8:29 AM WATCH DIAL MAKER 25 mg oxyCODONE (ROXICODONE) tablet 5 mg 5 mg, oral, Every 4 hours PRN, 1st line for pain, post-op pain, Starting on Tue10/16/21 at 1803, For 3 doses, Indications: PainIndications:Pain Given 10/16/2021 6:40 PM WATCH DIAL MAKER 5 mg oxyCODONE (ROXICODONE) tablet 5 mg 5 mg, oral, Every 4 hours PRN, breakthrough pain, intolerable pain, Starting on Tue10/16/21 at 1934, Indications: PainIndications:Pain Given 10/17/2021 10:07 PM WATCH DIAL MAKER 5 mg Given 10/17/2021 4:10 PM WATCH DIAL MAKER [address] (PROTONIX) extended release tablet 40 mg 40 mg, oral, Daily, First dose on Tue10/16/21 at 1938, Do not crush, chew, cut, dissolve, open or otherwise manipulate tablet/capsule., Indications: Stress Ulcer ProphylaxisIndications:Stress Ulcer Prophylaxis Given 10/18/2021 8:40 AM CDT 40 mg Given 10/17/2021 8:30 AM WATCH DIAL MAKER 40 mg sodium chloride 0.9% flush 0.5-20 mL 0.5-20 mL, intra-catheter, Every 8 hours scheduled, First dose on Tue10/16/21 at 2200, Flush volume based on line type and size. Given 10/17/2021 1:31 PM WATCH DIAL MAKER 10 mL Given 10/17/2021 12:09 AM WATCH DIAL MAKER 10 mL sodium chloride 0.9% flush 0.5-20 [...] CDT 0.4 mg Given 10/17/2021 8:30 AM WATCH DIAL MAKER 0.4 mg tranexamic acid (CYKLOKAPRON) 1,000 mg/10 mL (100 mg/mL) solution 1,000 mg 1,000 mg, topical, Once, On Tue10/16/21 at 1720, For 1 dose, Max rate of infusion is 100 mg/minute., Indications: Postsurgical HemorrhageIndications:Postsurgi calixto Hemorrhage Given 10/16/2021 6:59 PM WATCH DIAL MAKER 1,000 mg tranexamic acid (CYKLOKAPRON) 1,000 mg/10 mL (100 mg/mL) solution 1,000 mg 1,000 mg, topical, Every 6 hours, First dose on Tue10/16/21 at 2315, Apply to gauze and place with pressure in mouth Max rate of infusion is 100 mg/minute., Indications: Postsurgical HemorrhageIndications:Postsurgi calixto Hemorrhage Given 10/17/2021 12:08 AM WATCH DIAL MAKER 1,000 mg Other (Comment) documented in this [...] this section may contain times in both WATCH DIAL MAKER and CDT. Scheduled Medication Order 10/16/2021 10/17/2021 [...] 0840 (Given - Provider: Augie Bowling RN) chlorhexidine (PERIDEX) 0.12 % solution 15 mL 15 mL, mouth/throat, 3 times daily after meals, First dose on Tue10/16/21 at 1938 1938 (Due) 0830 (Given - Provider: Augie Bowlnig RN)1308 (Given - Provider: Augie Bowling RN)1754 (Given - Provider: Augie Bowling RN) 0840 (Given - Provider: Augie Bowling RN) htjxaxmnpwe-mljszwmnu-e ilanter (TRELEGY ELLIPTA) 100-62.5-25 mcg inhaler 1 puff (CANCELED) 1 puff, inhalation, Daily (respiratory therapy aide), First dose on Tue10/16/21 at 1938, Rinse mouth with water after use. Do not swallow. 1953 (Not Given - Provider: Ayden Peoples, PIPPA - Reason: Medication not available) 0915 (Not Given - Provider: Estuardo Powell, PIPPA - Reason: Medication not available)1306 (Given - Provider: Estuardo Powell, PIPPA) 0845 (Given - Provider: Peg Isbell, PIPPA) glduegzswpq-ialpascxa-y ilanter (TRELEGY ELLIPTA) 100-62.5-25 mcg inhaler 1 [...] mg, nebulization, Every 4 hours PRN (respiratory therapy aide), wheezing, Starting on Tue10/16/21 at 1936 ipratropium (ATROVENT) 0.02 % nebulizer solution 0.5 mg(Linked Group 1) 0.5 mg, nebulization, Every 4 hours PRN (respiratory therapy aide), wheezing, shortness of breath, Starting on Tue10/16/21 [...] mg, nebulization, Every 4 hours PRN (respiratory therapy aide), wheezing, Starting on Tue10/16/21 at 1936 And ipratropium (ATROVENT) 0.02 % nebulizer solution 0.5 mgJump to med 0.5 mg, nebulization, Every 4 hours PRN (respiratory therapy aide), wheezing, shortness of breath, Starting on Tue10/16/21 at 1936 documented in this encounter Orders Medications Ordered That José Manuel ht Not Have Been Administered Count Last Ordered Date First Ordered Date nnemvsrunpg-atmaepypq-mgxouu er (TRELEGY ELLIPTA) 100-62.5-25 mcg inhaler 1 [...] 10/16/2021 documented in this encounter Care Teams General Sales Manager Relationship Specialty Start Date End Date Liliana May MD [address] [place] [address] PCP - General Family Medicine 01/01/21 Moose Singleton MD [address] [place] [address] Consulting Physician Otolaryngology 09/27/21 documented as of this encounter
== END 2024-08-01 22:05 | disposition home or self-care (01) ==
PROVIDERS: Emergency Provider Emergency Medicine; PCP Family Medicine
DX: J44.1 Chronic obstructive pulmonary disease with (acute) exacerbation (principal); I13.0 Hypertensive heart and chronic kidney disease with heart failure and stage 1 through stage 4 chronic kidney disease, or unspecified chronic kidney disease; I50.9 Heart failure, unspecified; N18.30 Chronic kidney disease, stage 3 unspecified; I48.91 Unspecified atrial fibrillation; I25.10 Atherosclerotic heart disease of native coronary artery without angina pectoris; Z79.51 Long term (current) use of inhaled steroids; Z87.891 Personal history of nicotine dependence; Z79.01 Long term (current) use of anticoagulants; Z20.822 Contact with and (suspected) exposure to COVID-19
CPT/HCPCS: 36415; 71045; 80053; 83605; 83880; 84484; 85027; 85380; 85610; 85730; 87040; 87637; 93005; 96374; 99284; A9270; J2919

== ENCOUNTER 2024-08-21 11:55 | Observation (INO) | payer MEDICARE, OTHER, SELFPAY ==
[2024-08-21] VITALS (28 sets, daily range): BP systolic 92–168; BP diastolic 51–91; PULSE 88–144; RESP 13–36; TEMP 36.7–36.9; O2SAT 94–100; BMI 20.5
--- NOTE | ~2024-08-21 | XR_ITS ---
XR chest 1V portable Ordering provider: Ravinder Montero MD History: 74 years Male with . sob ACUTE . Comparison: August 01, 2024 FINDINGS: MEDIASTINUM: The cardiac silhouette is not enlarged. LUNGS: No effusions or pneumothorax. Minimal opacification in the left supradiaphragmatic area. Emphysematous changes. Calcification in the right suprahilar area unchanged. OTHER: No free air under the diaphragm. Degenerative changes of the spine with mild scoliosis. Healin g left fifth rib fracture in the upper thorax IMPRESSION: Left basilar atelectasis versus pneumonia. Otherwise, No acute cardiopulmonary pathology. Reviewed, dictated and finalized at location A. ERIOLOGY PROFESSOR
--- NOTE | 2024-08-21 12:04 | ECG_ITS ---
Test Date: 2024-08-21 12:10:46 Measurements Intervals [place] Rate: 108 P: 0 TN: 0 QRS: -19 QRSD: 86 T: 87 QT: 297 QTc: 400 Interpretive Statements ATRIAL FIBRILLATION WITH RAPID VENTRICULAR RESPONSE Compared to ECG 08/01/2024 19:58:04 RAPID VENTRICULAR RESPONSE NOW PRESENT Electronically Signed On 08-21-2024 15:08:36 WAREHOUSE RECEIVING CLERK by Leonarda Newman M.D.
[2024-08-21 12:50] LABS: Base Excess ABG -0.9 mmol/L (0-2); HCO3 ABG 21.5 mmol/L (23-29); Oxygen Content ABG 18.2 %vol (16.0-22.0); Oxyhemoglobin 95.5 % (94-100); PCO2 ABG 29.7 mmHg (35-45); PO2 ABG 83.1 mmHg (75-85); pH ABG 7.48 (7.35-7.45)
[2024-08-21 12:51] LABS: Basophils Absolute Auto 0.05 K/mm3 (0.00-0.10); Basophils Percent Auto 0.4 % (0.0-1.0); Device NASAL CANNULA; Eosinophils Absolute Auto 0.07 K/mm3 (0.02-0.50); Eosinophils Percent Auto 0.5 % (1.0-6.0); Hematocrit 39.3 % (37.0-46.0); Hemoglobin 12.4 g/dL (12.4-15.3); Immature Granulocyte Absolute 0.12 K/mm3 (0.00-0.00); Immature Granulocyte Percent A 0.9 % (0.0-0.0); Mean Corpuscular HGB Conc 31.6 g/dL (32-36); Mean Corpuscular Hemoglobin 25.5 pg (27.0-31.0); Mean Corpuscular Volume 80.7 fL (78.0-102.0); Mean Platelet Volume 8.9 fl (8.7-11.0); Modified Allen's Test Pass; Monocytes Absolute Auto 0.76 K/mm3 (0.10-0.90); Monocytes Percent Auto 5.7 % (2.0-11.0); Neutrophils Absolute Auto 11.63 K/mm3 (1.70-7.20); Neutrophils Percent Auto 86.5 % (50.0-70.0); Platelet Count Result 251 K/mm3 (150-420); Red Blood Count 4.87 M/mm3 (4.70-6.10); Red Cell Distribution Width 15.3 % (11.6-14.4); Site Drawn RIGHT RADIAL; White Blood Count 13.4 K/mm3 (4.8-10.8)
[2024-08-21] MEDS: methylPREDNISolone SOD SUCC 125 MG VIAL IV PUSH (12:53)
[2024-08-21] MEDS: IPRATROPIUM 0.5 MG/ALBUTEROL SULFATE 2.5 MG AMPUL.NEB 3 ML INHALATION (12:57)
--- NOTE | 2024-08-21 13:09 | PC.NURSE ---
PT STANDS UP AT BEDSIDE TO USE URINAL, BECOMES EXTREMELY SOB AND HR SPIKES UP TO 150. PT O2 DROPS TO 96% ON 2l O2. ERP IS NOTIFIED AND AT BEDSIDE AT THIS TIME. WILL CONTINUE TO MONITOR.
[2024-08-21 13:14] LABS: D Dimer 0.23 mg/L (0.19-0.50)
[2024-08-21 13:17] LABS: Alanine Aminotransferase 22 U/L (16-63); Albumin Level 2.9 g/dL (3.4-5.0); Alkaline Phosphatase 85 U/L (46-116); Anion Gap 11 mmol/L (4-12); Aspartate Amino Transferase 14 U/L (15-37); Bilirubin,Total 0.6 mg/dL (0.00-1.00); Blood Urea Nitrogen 17 mg/dL (7-18); Calcium 8.9 mg/dL (8.5-10.1); Carbon Dioxide 27 mmol/L (21-32); Chloride 101 mmol/L (98-108); Estimated CRCL calculation 43 ml/min; Estimated Glomerular Filt Rate 48; Glucose 123 mg/dL (70-99); Magnesium 1.5 mg/dL (1.8-2.4); NT Pro B Type Natriuretic Pept 990 pg/mL (0-125); Osmolality Calculated 290 mOsm/kg (285-295); Potassium 3.7 mmol/L (3.5-5.1); Sodium 139 mmol/L (136-145); Total Protein 6.2 g/dL (6.4-8.2); Troponin I 15.6 ng/L (0.00-60.4)
[2024-08-21 13:21] LABS: Add Urine Microscopic? YES; Appearance Urine Clear (Clear); Bilirubin Urine 1+ (Negative); Blood Urine Negative (Negative); Color Urine Yellow (Yellow); Glucose Urine UA Negative (Negative); Ketones Urine Trace (Negative); Leukocyte Esterase Ur Trace LEU/UL (Negative); Nitrate Urine Negative (Negative); Protein Urine 1+ (Negative); Urobilinogen Urine 0.2 mg/dL (0.2-1.0); pH Urine 5.5 (5.0-8.0)
[2024-08-21] MEDS: LORazepam INJ (*CRX) 2 MG/ML VIAL 1 MG IV PUSH (13:22)
[2024-08-21 13:28] LABS: Bacteria Urine Trace /hpf; Mucus Urine Few /lpf; RBC Urine None seen /hpf (0-2); Squamous Epithelial Cell Urine Occasional /hpf (Few); WBC Urine 0-3 /hpf (0-3)
--- NOTE | 2024-08-21 13:46 | PC.NURSE ---
PT IS RESTING ON STRETCHER IN EXAM ROOM WITH LIGHTS OFF. PT DENIES ANY NEEDS OR COMPLAINTS. PT IS AWAITING ERP DECISION AT THIS TIME. WILL CONTINUE TO MONITOR.
--- NOTE | 2024-08-21 14:07 | ECG_ITS ---
Test Date: 2024-08-21 14:14:46 Measurements Intervals [place] Rate: 103 P: 0 WV: 0 QRS: 63 QRSD: 97 T: 73 QT: 318 QTc: 417 Interpretive Statements ATRIAL FIBRILLATION WITH RAPID VENTRICULAR RESPONSE ABNORMAL RHYTHM ECG Compared to ECG 08/21/2024 12:10:46 No significant changes Electronically Signed On 08-21-2024 15:09:27 CLINICAL EXERCISE PHYSIOLOGIST by Leonarda Newman M.D.
--- NOTE | 2024-08-21 14:14 | ED.SOB ---
HPI - SOB/Dyspnea General Chief Complaint: Shortness of Breath/Dyspnea Stated Complaint: SOB Time Seen by Provider: 08/21/24 12:23 Source: patient Mode of arrival: ambulatory Limitations: no limitations History of Present Illness HPI Narrative: Patient is a 74-year-old male with a significant past medical history that presents today for shortness of breath. Patient was at home and was sitting in chair and had dyspnea and took his oxygen and his oxygen level was 74. He called his daughter she went over there and she should recheck his oxygen his oxygen was at 84. He has severe COPD he uses his nebulizing treatments and has a Trelegy inhaler. His daughter says she has been trying to get him on home oxygen but they are not doing it yet. She is not sure why. He is feeling shortness of breath worse worse last few days and finally she may come into the emergency department today. MD elicited complaint: shortness of breath and cough Onset (ago): day(s) Context: occurred during exertion Timing: constant Severity: moderate Exacerbating factors: lying flat and exertion Relieving factors: oxygen, rest, bronchodilators and upright position Known history of: COPD Associated symptoms: cough, wheezing and sputum production Treatment prior to arrival: bronchodilator Related Data Home oxygen amount: none Home Medications ?Medication ?Instructions ?Recorded ?Confirmed ?Last Taken ?Type finasteride 5 mg tablet 5 mg PO DAILY 01/06/24 08/03/24 01/22/24 08:00 History fluticasone fur. 100 mcg-umeclid 1 inh inhalation Q24H 02/17/24 08/03/24 07/14/24 History 62.5 mcg-vilant 25 mcg inhalat.powder (Trelegy Ellipta) pravastatin 20 mg tablet 20 mg PO DAILY 07/14/24 08/03/24 Unknown History roflumilast 500 mcg tablet 500 mcg PO DAILY 07/14/24 08/03/24 Unknown History (Daliresp) diltiazem HCl 180 mg 180 mg PO DAILY 07/15/24 08/03/24 07/14/24 History capsule,extended release 24 hr Allergies Allergy/AdvReac Type Severity Reaction Status Date / Time lisinopril Allergy Unknown Cough Verified 08/21/24 12:14 Sulfa (Sulfonamide Allergy Cough Verified 08/21/24 12:14 Antibiotics) Review of Systems Review of Systems: All systems reviewed & are unremarkable except as noted in HPI and below Constitutional: Constitutional: Reports as per HPI Eyes: Eyes: Reports no additional eye complaints ENT: Reports as per HPI and Reports nasal congestion Cardiovascular: Cardiovascular: Reports as per HPI and Reports chest pain Respiratory: Respiratory: Reports as per HPI, Reports chest congestion and Reports cough Gastrointestinal: Gastrointestinal: Reports no additional gastrointestinal complaints Genitourinary: Genitourinary: Reports no additional male genitourinary complaints Musculoskeletal: Musculoskeletal: Reports no additional musculoskeletal complaints Integumentary/Breasts: Skin/Breast: Reports system reviewed and no additional complaints, except as docu Neurologic: Reports system reviewed and no additional complaints, except as documented Psychiatric: Psychiatric: Reports as per HPI Endocrine: Endocrine: Reports as per HPI Hematologic/Lymphatic: Hematologic/Lymphatic: Reports no additional hematologic/lymphatic complaints Allergic/Immunologic: Allergic/Immunologic: Reports no additional allergic/immunologic complaints FORMERLY [facility], [facility] Past Medical History Medical History Acute upper respiratory infection Thrush of mouth and esophagus Chronic anticoagulation Oral cancer Completely excised, no additional treatment required. Septic shock Gastroesophageal reflux disease Coronary artery disease Chronic obstructive pulmonary disease Former smoker Chronic kidney disease, stage 3 Hypertension Heart failure with reduced ejection fraction Echocardiogram in April 2023 showed reduced LV function with an EF of 40 to 45% and abnormal diastolic function. Community acquired pneumonia, bilateral Chest pain Elevated d-dimer COPD exacerbation Sinusitis Myocardial infarction Evidence of infarct on stress test from September 2018 without reversible ischemia, EF of 37%. Pneumonia Osteoporosis Rectal polyp Dyslipidemia Persistent atrial fibrillation Vitamin D deficiency, unspecified Surgical History Surgical History History of tonsillectomy History of bilateral cataract extraction History of colonoscopy with polypectomy History of vasectomy Family History Family History Mother Patient's mother is Family history of malignant neoplasm Social History Social History Social History: Surrogate medical decision maker: Beulah Cross, spouse. Code status: Full code. Smoking packs per day: 1.5 Smoking cigarettes per day: 30.0 Years smoked: 50 Smoking pack-years: 75.00 Smoking status: Never smoker Tobacco type: cigarettes Second hand tobacco smoke exposure: Yes Smoking end date: 10/09/21 Alcohol intake: never Drinks per week: 0 Alcohol use details: Rare alcohol use in moderation. Substance use: never Substance use type: does not use Do You Feel Safe in your Home?: Yes Lack of Transportation: No Lack of Food: Never True Current Housing: I Have Housing Concerned About Future Housing: No Difficulty Paying Gas/Electric Bills: No Difficulty Paying for Meds: No Currently Unemployed: No Education: High School Diploma/GED Difficulty w/ Childcare or Family Care: No Living arrangements: with family Additional living arrangements comments: Lives with spouse and son in [place]. Occupation/Education: retired Additional occupation/education comments: Retired from the [employer] after 24 years. Worked for [employer] thereafter. Gender identity (if verbalized by the patient): Male Sexual Orientation (if Verbalized by the Patient): Straight or Heterosexual Spiritual care concerns: No Agree to blood products: Yes Exam Const: General: healthy appearing Nutritional Appearance: well nourished Orientation/consciousness: patient oriented x3 HENMT: Head: normal to inspection Ears: external ears normal Face/Nose/Sinus: Normal external nose present Face and sinus: normal facial exam Mouth: Yes Normal oral and palatal mucosa present Eyes: Conjunctivae: conjunctivae normal Pupils: Equal, round and reactive pupils present EOM: EOMs intact bilaterally Neck: Neck: normal visual inspection Chest: Chest palpation & inspection: normal inspection of the chest Resp: Effort & Inspection: normal respiratory effort Auscultation: clear to auscultation bilaterally Cardio: Rate: regular rate Rhythm: regular rhythm GI: GI Palp: Yes Soft to palpation Back/Spine/Pelvis: Back: no CVA tenderness Skin: General skin exam: normal color Rashes: no rashes Wounds: no wounds Neuro: General: patient oriented x3 Cranial nerves: Yes Nystagmus not present Speech: normal speech Gait exam (Neuro): Normal gait present Extrem: General: normal to inspection Psych: Mental Status: mental status grossly normal Affect: normal affect Attitude: cooperative Course Vital Signs Vital signs: Vital Signs Temperature 98.5 F 08/21/24 11:55 Pulse Rate 126 H 08/21/24 11:55 Respiratory Rate 28 H 08/21/24 11:55 Blood Pressure 168/86 H 08/21/24 11:55 Pulse Oximetry 99 08/21/24 11:55 Oxygen Delivery Nasal Cannula 08/21/24 11:55 Oxygen Flow Rate 2 08/21/24 11:55 Temperature 98.5 F 08/21/24 11:55 Pulse Rate 89 08/21/24 17:46 Respiratory Rate 32 H 08/21/24 17:46 Blood Pressure 128/83 08/21/24 17:46 Pulse Oximetry 96 08/21/24 17:46 Oxygen Delivery Room Air 08/21/24 11:55 Oxygen Flow Rate 2 08/21/24 11:55 MDM - SOB/Dyspnea MDM Narrative Medical decision making narrative: Patient has history of pretty severe COPD and has had shortness of breath from honest been trying to be on oxygen but has not met requirements. He does uses nebulizer every morning and takes his Trelegy for the daytime. He is most likely in his COPD exacerbation possible pneumonia due to the cough he has well. Will do a chest x-ray and lab work and check his BNP as as troponin and tree as necessary. BNP was elevated we give IV Lasix just 20 mg because his pressure is sitting around 125/90 right now. EKG showed AFib with RVR he does have his chronic history of AFib and takes Eliquis and tells and for this, however I did not agree with the read of the RVR his heart rate is only 100 and I do not see RVR on the EKG. X-ray of the chest does show pneumonia on the left side will treat with doxycycline and IV Rocephin. Differential Diagnosis Differential diagnosis: Likely acute exacerbation of chronic obstructive airways disease and community acquired pneumonia Medical Records Attestation: I reviewed the patient's medical records. Lab Data Attestation: I reviewed the patient's lab results. 08/21/24 12:47 08/21/24 12:47 Labs: Lab Results 08/21/24 08/21/24 Range/Units 12:29 12:47 WBC 13.4 H (4.8-10.8) K/mm3 RBC 4.87 (4.70-6.10) M/mm3 Hgb 12.4 (12.4-15.3) g/dL Hct 39.3 (37.0-46.0) % MCV 80.7 (78.0-102.0) fL MCH 25.5 L (27.0-31.0) pg MCHC 31.6 L (32-36) g/dL RDW 15.3 H (11.6-14.4) % Plt Count 251 (150-420) K/mm3 MPV 8.9 (8.7-11.0) fl Immature Gran % (Auto) 0.9 H (0.0-0.0) % Neut % (Auto) 86.5 H (50.0-70.0) % Lymph % (Auto) 6.0 L (18.0-42.0) % [place] % (Auto) 5.7 (2.0-11.0) % Eos % (Auto) 0.5 L (1.0-6.0) % Baso % (Auto) 0.4 (0.0-1.0) % Lymph # (Auto) 0.80 L (1.10-4.50) K/mm3 Baker # (Auto) 0.76 (0.10-0.90) K/mm3 Eos # (Auto) 0.07 (0.02-0.50) K/mm3 Baso # (Auto) 0.05 (0.00-0.10) K/mm3 Abs Immat Gran (auto) 0.12 H (0.00-0.00) K/mm3 Absolute Neuts (auto) 11.63 H (1.70-7.20) K/mm3 Absolute Nucleated RBC 0.00 (0.00-0.00) K/mm3 Nucleated RBC % 0.0 (0-0.0) % D-Dimer 0.23 (0.19-0.50) mg/L Sodium 139 (136-145) mmol/L Potassium 3.7 (3.5-5.1) mmol/L Chloride 101 (98-108) mmol/L Carbon Dioxide 27 (21-32) mmol/L Anion Gap 11 (4-12) mmol/L BUN 17 (7-18) mg/dL Creatinine 1.44 H (0.70-1.30) mg/dL Estim Creat Clear Calc 43 ml/min Estimated GFR 48 L (59 - ) Glucose 123 H (70-99) mg/dL Calculated Osmolality 290 (285-295) mOsm/kg Calcium 8.9 (8.5-10.1) mg/dL Magnesium 1.5 L (1.8-2.4) mg/dL Total Bilirubin 0.6 (0.00-1.00) mg/dL AST 14 L (15-37) U/L ALT 22 (16-63) U/L Alkaline Phosphatase 85 (46-116) U/L Troponin I 15.6 (0.00-60.4) ng/L NT-Pro-B Natriuret Pep 990 H (0-125) pg/mL Total Protein 6.2 L (6.4-8.2) g/dL Albumin 2.9 L (3.4-5.0) g/dL Urine Color Yellow (Yellow) Urine Appearance Clear (Clear) Urine pH 5.5 (5.0-8.0) Ur Specific [place] 1.020 (1.010-1.020) Urine Protein 1+ H (Negative) Urine Glucose (UA) Negative (Negative) Urine Ketones Trace H (Negative) Ur Blood (Man) Negative (Negative) Urine Nitrate Negative (Negative) Urine Bilirubin 1+ H (Negative) Urine Urobilinogen 0.2 (0.2-1.0) mg/dL Leukocyte Esterase Rfl Trace H (Negative) REJI/UL Urine RBC None seen (0-2) /hpf Urine WBC 0-3 (0-3) /hpf Ur Squamous Epith Cells Occasional (Few) /hpf Urine Bacteria Trace (None) /hpf Urine Mucus Few H /lpf ABG Data ABG results: 08/21/24 12:47 Puncture Site Right radial ABG pH 7.48 H ABG pCO2 29.7 L ABG pO2 83.1 ABG PO2/FiO2 Ratio Not Reportable ABG HCO3 21.5 L ABG O2 Saturation 96.0 ABG O2 Content 18.2 ABG Base Excess -0.9 L A-a Gradient Not Reportable Oxyhemoglobin 95.5 O2 Delivery Device Nasal cannula O2 Liters/Min 1.0 Attestation: I personally reviewed and interpreted this ABG as follows: Imaging Data Attestation: I personally reviewed and interpreted this imaging study as follows: Discharge Plan Discharge Clinical Impression: Pneumonia, Heart failure Patient Disposition: Acute Care [facility] Condition: Stable Instructions: Bacterial Pneumonia (ED) Patient Language: Icelandic Prescriptions: No Action pravastatin 20 mg tablet 20 mg PO DAILY Rx Instructions: TAKE ONE TABLET BY MOUTH DAILY roflumilast [Daliresp] 500 mcg tablet 500 mcg PO DAILY diltiazem HCl 180 mg capsule,extended release 24hr 180 mg PO DAILY loratadine 10 mg Tablet 10 mg PO QHS Qty: 30 0RF guaifenesin [Mucus Relief ER] 600 mg Tablet Extended Release 12hr 1,200 mg PO Q12HR Qty: 30 0RF prednisone 10 mg tablet 10 mg PO DIRECTED Qty: 26 0RF Rx Instructions: see taper instructions Take 40 mg ( 4 tabs) starting tomorrow for 2 days, Then decrease to 30 mg ( 3 tabs) for 3 days, Then decrease to 20 mg ( 2tabs) for 3 days, Then decrease to 10 mg (1 tab) for 3 days, Then discontinue finasteride 5 mg tablet 5 mg PO DAILY azithromycin [Zithromax Z-Miles] 250 mg tablet See Rx Instructions PO .COMPLEX Qty: 6 0RF Rx Instructions: For 250 mg dose pack: take 500 mg today (day 1), then 250 mg for 4 days (days 2-5) Eliquis 5 mg tablet 5 mg PO BID Qty: 180 3RF albuterol sulfate 90 mcg/actuation HFA aerosol inhaler 1 - 2 inh inhalation Q4-6H PRN (Reason: shortness of breath or wheezing) 90 Days Qty: 25.5 2RF Trelegy Ellipta 100-62.5-25 mcg blister with device 1 inh inhalation Q24H magnesium oxide 400 mg (241.3 mg magnesium) Tablet 400 mg PO DAILY Qty: 30 0RF omeprazole 40 mg capsule,delayed release(DR/EC) 40 mg PO DAILY Qty: 100 1RF tamsulosin 0.4 mg capsule 0.4 mg PO BID Qty: 60 2RF ipratropium bromide 0.02 % solution 2.5 ml inhalation Q6H PRN (Reason: shortness of breath or wheezing) Qty: 75 3RF Trelegy Ellipta 100-62.5-25 mcg blister with device 1 inh INHALATION DAILY Qty: 60 0RF apixaban 5 mg tablet 5 mg tablet 0RF Time of Disposition: 18:20
[2024-08-21] MEDS: FUROSEMIDE INJ 20 MG/2 ML VIAL IV PUSH (14:32)
[2024-08-21] MEDS: cefTRIAXone 2 GM/NS 100 ML 2 GM/100 ML BAG IVPB (14:33)
[2024-08-21] MEDS: DOXYCYCLINE 100 MG/NS 100 ML 100 MG/100 ML BAG IVPB (14:37)
--- NOTE | 2024-08-21 14:40 | PC.NURSE ---
pt has iv medications infusing as ordered without difficulty. pt is awaiting erp decision. nad noted. soda provided. lights off at pt request. will continue to monitor.
--- NOTE | 2024-08-21 14:42 | PC.NURSE ---
blood cultures were not drawn prior to abx, erp declined to have them drawn.
--- NOTE | 2024-08-21 15:48 | PC.NURSE ---
pt has completed iv medications at this time. has used urinal. pt is speaking in complete sentences at this time. pt is noted to be sob on exertion. pt is agreeable to admission. daughter remains at bedside. will continue to monitor.
--- NOTE | 2024-08-21 17:18 | PC.NURSE ---
PT IS TO BE ADMITTED TO ROOM 203 AT [facility]. PT IS AWAITING ERP ORDERS. PT IS BREATHING BETTER AT THIS TIME. DENIES ANY NEEDS OR COMPLAINTS. WILL CONTINUE TO MONITOR.
--- NOTE | 2024-08-21 18:58 | ADMGEN ---
This patient, Chilo Cross, was admitted to 2nd Floor Room 203-1. Patient/family oriented to hospital policies and general routines including ID bracelet, bed and alarms, visiting hours, pain management, procedures, bathroom and other care routines, personal items, smoking policy, room service/diet, and visiting hours. Son in room, o2 tubing switched out and humidifier applied Information on how to activate the Rapid Response Team has been discussed. Patient/Family are encouraged to report perceived risks to care and to ask questions if they do not understand what they are told or what they should do.
[2024-08-21 20:39] LABS: Basophils Absolute Auto 0.01 K/mm3 (0.00-0.10); Basophils Percent Auto 0.1 % (0.0-1.0); Hematocrit 37.7 % (37.0-46.0); Hemoglobin 11.8 g/dL (12.4-15.3); Immature Granulocyte Absolute 0.08 K/mm3 (0.00-0.00); Immature Granulocyte Percent A 0.9 % (0.0-0.0); Lymphocytes Absolute Auto 0.26 K/mm3 (1.10-4.50); Lymphocytes Percent Auto 2.8 % (18.0-42.0); Mean Corpuscular HGB Conc 31.3 g/dL (32-36); Mean Corpuscular Hemoglobin 25.3 pg (27.0-31.0); Mean Corpuscular Volume 80.9 fL (78.0-102.0); Mean Platelet Volume 9.1 fl (8.7-11.0); Monocytes Absolute Auto 0.04 K/mm3 (0.10-0.90); Monocytes Percent Auto 0.4 % (2.0-11.0); Neutrophils Absolute Auto 8.96 K/mm3 (1.70-7.20); Neutrophils Percent Auto 95.8 % (50.0-70.0); Platelet Count Result 236 K/mm3 (150-420); Red Blood Count 4.66 M/mm3 (4.70-6.10); Red Cell Distribution Width 15.3 % (11.6-14.4); White Blood Count 9.4 K/mm3 (4.8-10.8)
[2024-08-21 20:51] LABS: Magnesium 1.3 mg/dL (1.8-2.4)
[2024-08-21] MEDS: APIXABAN 2.5 MG TABLET 5 MG PO (21:34)
[2024-08-21] MEDS: TAMSULOSIN HCL 0.4 MG CAPSULE PO (21:34)
[2024-08-21] MEDS: ACETAMINOPHEN 325 MG TABLET 650 MG PO (21:34)
[2024-08-22] VITALS (20 sets, daily range): BP systolic 114–147; BP diastolic 62–74; PULSE 76–140; RESP 18–20; TEMP 35.9–36.7; O2SAT 92–98
--- NOTE | 2024-08-22 00:05 | PC.NURSE ---
Pt resting comfortably in bed and doesnt voice any c/o discomfort.
--- NOTE | 2024-08-22 02:15 | PC.NURSE ---
Pt asleep and no signs of discomfort noted.
--- NOTE | 2024-08-22 04:10 | PC.NURSE ---
Pt sitting up in bed and using his cell phone. Pt voided 350 ml of clear, mary urine in urinal. Pt doesnt voice any c/o shortness of breath.
[2024-08-22 05:32] LABS: Basophils Absolute Auto 0.01 K/mm3 (0.00-0.10); Basophils Percent Auto 0.1 % (0.0-1.0); Hemoglobin 11.6 g/dL (12.4-15.3); Immature Granulocyte Absolute 0.09 K/mm3 (0.00-0.00); Immature Granulocyte Percent A 0.9 % (0.0-0.0); Lymphocytes Absolute Auto 0.48 K/mm3 (1.10-4.50); Lymphocytes Percent Auto 4.7 % (18.0-42.0); Mean Corpuscular HGB Conc 31.4 g/dL (32-36); Mean Corpuscular Hemoglobin 25.3 pg (27.0-31.0); Mean Corpuscular Volume 80.6 fL (78.0-102.0); Mean Platelet Volume 9.4 fl (8.7-11.0); Monocytes Absolute Auto 0.12 K/mm3 (0.10-0.90); Monocytes Percent Auto 1.2 % (2.0-11.0); Neutrophils Absolute Auto 9.61 K/mm3 (1.70-7.20); Neutrophils Percent Auto 93.1 % (50.0-70.0); Platelet Count Result 248 K/mm3 (150-420); Red Blood Count 4.59 M/mm3 (4.70-6.10); Red Cell Distribution Width 15.1 % (11.6-14.4); White Blood Count 10.3 K/mm3 (4.8-10.8)
--- NOTE | 2024-08-22 06:05 | PC.NURSE ---
Pt continues to use his cell phone; No signs of respiratory distress noted.
[2024-08-22] MEDS: FINASTERIDE 5 MG TABLET PO (09:07)
[2024-08-22] MEDS: dilTIAZem HCL CD 180 MG CAP.24HR PO (09:07)
[2024-08-22] MEDS: TAMSULOSIN HCL 0.4 MG CAPSULE PO ×2 (09:07→17:48)
[2024-08-22] MEDS: APIXABAN 2.5 MG TABLET 5 MG PO ×2 (09:07→21:23)
[2024-08-22] MEDS: PRAVASTATIN SODIUM 20 MG TABLET PO (09:08)
[2024-08-22 09:50] LABS: Alanine Aminotransferase 16 U/L (16-63); Albumin Level 2.7 g/dL (3.4-5.0); Alkaline Phosphatase 80 U/L (46-116); Anion Gap 10 mmol/L (4-12); Aspartate Amino Transferase 12 U/L (15-37); Bilirubin,Total 0.4 mg/dL (0.00-1.00); Blood Urea Nitrogen 18 mg/dL (7-18); Calcium 8.6 mg/dL (8.5-10.1); Carbon Dioxide 27 mmol/L (21-32); Chloride 102 mmol/L (98-108); Estimated CRCL calculation 43 ml/min; Estimated Glomerular Filt Rate 52; Glucose 137 mg/dL (70-99); Magnesium 1.6 mg/dL (1.8-2.4); Osmolality Calculated 291 mOsm/kg (285-295); Sodium 139 mmol/L (136-145); Total Protein 5.9 g/dL (6.4-8.2)
[2024-08-22] MEDS: MAGNESIUM SULF 2 GM/WATER 50ML 2 GM/50 ML BAG IVPB (10:00)
[2024-08-22] MEDS: AZITHROMYCIN 250 MG TABLET 500 MG PO (10:00)
[2024-08-22] MEDS: ALPRAZolam (*CRX) 0.5 MG TABLET PO ×2 (10:01→21:23)
--- NOTE | 2024-08-22 12:36 | P.HP_ITS ---
H&P: HPI History of Present Illness Date/Time: 08/22/24 12:36 Chief Complaint: Shortness of breath/ hypoxia Narrative: Patient is a 74-year-old male who presented to the emergency department with complaints of shortness of breath and hypoxia. patient states while at home he has had increased shortness of breath but after a short distance he stopped checked his at home pulse ox which showed an oxygen saturation of 79% and a heart rate of 170. Patient reports he called his daughter who is an ER nurse and she advised him to go to the emergency department for further evaluation and treatment. Patient does have a history of COPD emphysema, CKD 3, CAD, PR, atrial fibrillation, CHF, remission of oral cancer, and HLD. patient states he attempted to use his inhalers and nebulizers however symptoms did not improve. upon arrival patient was showing acute respiratory failure with hypoxia secondary to COPD exacerbation he was placed on supplemental oxygen and admitted to the medical unit. Patient's BNP was mildly elevated and he was given 20 IV push of Lasix, CXR suggestive of left basilar atelectasis versus pneumonia however patient had small bump in WBC at 13.4 but he had just been on a course of steroids outpatient less likely pneumonia. patient's EKG was also showing atrial fibrillation with RVR at 108 he was resumed on oral diltiazem. patient denied any chest pain, fever, chills, nausea, vomiting and has not been around any sick contacts. Review of Systems Review of Systems: All systems reviewed & are unremarkable except as noted in HPI and below PMFSH Past Medical History Medical History Acute upper respiratory infection Thrush of mouth and esophagus Chronic anticoagulation Oral cancer Completely excised, no additional treatment required. Septic shock Gastroesophageal reflux disease Coronary artery disease Chronic obstructive pulmonary disease Former smoker Chronic kidney disease, stage 3 Hypertension Heart failure with reduced ejection fraction Echocardiogram in April 2023 showed reduced LV function with an EF of 40 to 45% and abnormal diastolic function. Community acquired pneumonia, bilateral Chest pain Elevated d-dimer COPD exacerbation Sinusitis Myocardial infarction Evidence of infarct on stress test from September 2018 without reversible ischemia, EF of 37%. Pneumonia Osteoporosis Rectal polyp Dyslipidemia Persistent atrial fibrillation Vitamin D deficiency, unspecified Surgical History Surgical History History of tonsillectomy History of bilateral cataract extraction History of colonoscopy with polypectomy History of vasectomy Family History Family History Mother Patient's mother is Family history of malignant neoplasm Social History Social History Social History: Surrogate medical decision maker: Beulah Cross, spouse. Code status: Full code. Smoking packs per day: 1.5 Smoking cigarettes per day: 30.0 Years smoked: 50 Smoking pack-years: 75.00 Smoking status: Current every day smoker Tobacco type: cigarettes Second hand tobacco smoke exposure: Yes Smoking end date: 10/09/21 Alcohol intake: never Drinks per week: 0 Alcohol use details: Rare alcohol use in moderation. Substance use: never Substance use type: does not use Do You Feel Safe in your Home?: Yes Lack of Transportation: No Lack of Food: Never True Current Housing: I Have Housing Concerned About Future Housing: No Difficulty Paying Gas/Electric Bills: No Difficulty Paying for Meds: No Currently Unemployed: No Education: High School Diploma/GED Difficulty w/ Childcare or Family Care: No Living arrangements: with family Additional living arrangements comments: Lives with spouse and son in [place]. Occupation/Education: retired Additional occupation/education comments: Retired from [employer] after 24 years. Worked for [email or web address] thereafter. Gender identity (if verbalized by the patient): Male Sexual Orientation (if Verbalized by the Patient): Straight or Heterosexual Spiritual care concerns: No Agree to blood products: Yes Meds Home Medications and Allergies Home Medications ?Medication ?Instructions ?Recorded ?Confirmed ?Type apixaban 5 mg tablet (Eliquis) 5 mg PO BID #180 tabs 09/22/23 08/21/24 Rx magnesium oxide 400 mg (241.3 mg 400 mg PO DAILY #30 tabs 12/27/23 08/21/24 Rx magnesium) tablet finasteride 5 mg tablet 5 mg PO DAILY 01/06/24 08/21/24 History fluticasone fur. 100 mcg-umeclid 1 inh inhalation Q24H 02/17/24 08/21/24 History 62.5 mcg-vilant 25 mcg inhalat.powder (Trelegy Ellipta) omeprazole 40 mg capsule,delayed 40 mg PO DAILY #100 caps 03/19/24 08/21/24 Rx release albuterol sulfate 90 mcg/actuation 1 - 2 inh inhalation Q4-6H PRN 06/15/24 08/21/24 Rx aerosol inhaler shortness of breath or wheezing 90 days #25.5 grams pravastatin 20 mg tablet 20 mg PO DAILY 07/14/24 08/21/24 History roflumilast 500 mcg tablet 500 mcg PO DAILY 07/14/24 08/21/24 History (Daliresp) diltiazem HCl 180 mg 180 mg PO DAILY 07/15/24 08/21/24 History capsule,extended release 24 hr guaifenesin 600 mg tablet, 1,200 mg (2 x 600 mg) PO Q12HR #30 07/19/24 08/21/24 Rx extended release 12 hr (Mucus tabs Relief ER) loratadine 10 mg tablet 10 mg PO QHS #30 tabs 07/19/24 08/21/24 Rx tamsulosin 0.4 mg capsule 0.4 mg PO BID #60 caps 08/10/24 08/21/24 Rx apixaban 5 mg tablet (Eliquis) 5 mg Tablet#28 Samples 08/14/24 08/21/24 Sample fluticasone fur. 100 mcg-umeclid 1 inh inhalation DAILY #60 ea 08/14/24 08/21/24 Rx 62.5 mcg-vilant 25 mcg inhalat.powder (Trelegy Ellipta) ipratropium bromide 0.02 % 2.5 ml inhalation Q6H PRN 08/14/24 08/21/24 Rx solution for inhalation shortness of breath or wheezing #75 mL Allergies Allergy/AdvReac Type Severity Reaction Status Date / Time lisinopril Allergy Unknown Cough Verified 08/21/24 19:04 Sulfa (Sulfonamide Allergy Cough Verified 08/21/24 19:04 Antibiotics) Vital Signs Vital Signs - 24 hr 08/21/24 12:50 08/21/24 12:58 08/21/24 13:01 Temperature Pulse Rate 123 H 110 H 120 H Respiratory Rate 16 20 13 Blood Pressure 127/76 113/71 Pulse Oximetry 97 98 100 Oxygen Delivery Oxygen Flow Rate 08/21/24 13:06 08/21/24 13:15 08/21/24 13:16 Temperature Pulse Rate 118 H 98 103 H Respiratory Rate 20 25 H Blood Pressure 130/70 Pulse Oximetry 99 98 Oxygen Delivery Oxygen Flow Rate 08/21/24 13:31 08/21/24 13:46 08/21/24 14:01 Temperature Pulse Rate 113 H 144 H 109 H Respiratory Rate 23 H 24 H 36 H Blood Pressure 138/54 L 143/78 H 120/91 H Pulse Oximetry 98 97 97 Oxygen Delivery Oxygen Flow Rate 08/21/24 14:16 08/21/24 14:31 08/21/24 14:46 Temperature Pulse Rate 104 H 95 97 Respiratory Rate 26 H 31 H 24 H Blood Pressure 124/78 133/73 130/79 Pulse Oximetry 96 96 96 Oxygen Delivery Oxygen Flow Rate 08/21/24 15:01 08/21/24 15:16 08/21/24 15:45 Temperature Pulse Rate 112 H 107 H 113 H Respiratory Rate 19 18 20 Blood Pressure 153/75 H 135/76 140/79 Pulse Oximetry 97 95 98 Oxygen Delivery Oxygen Flow Rate 08/21/24 16:00 08/21/24 16:15 08/21/24 16:30 Temperature Pulse Rate 117 H 115 H 104 H Respiratory Rate 24 H 19 24 H Blood Pressure 134/71 121/85 139/85 Pulse Oximetry 99 97 97 Oxygen Delivery Oxygen Flow Rate 08/21/24 16:45 08/21/24 17:01 08/21/24 17:16 Temperature Pulse Rate 109 H 104 H 100 Respiratory Rate 21 H 28 H 20 Blood Pressure 134/77 127/72 141/81 H Pulse Oximetry 98 96 98 Oxygen Delivery Oxygen Flow Rate 08/21/24 17:31 08/21/24 17:46 08/21/24 18:15 Temperature Pulse Rate 88 89 Respiratory Rate 14 32 H Blood Pressure 134/87 128/83 Pulse Oximetry 99 96 97 Oxygen Delivery Oxygen Flow Rate 08/21/24 19:29 08/22/24 00:00 08/22/24 00:00 Temperature 98.1 F 97.8 F Pulse Rate 104 H 100 100 Respiratory Rate 28 H 20 Blood Pressure 121/69 122/62 Pulse Oximetry 97 97 Oxygen Delivery Nasal Cannula Nasal Cannula Oxygen Flow Rate 2 2 08/22/24 04:00 08/22/24 04:00 08/22/24 08:00 Temperature 96.7 F L 97 F L Pulse Rate 82 82 105 H Respiratory Rate 20 20 Blood Pressure 118/66 137/62 Pulse Oximetry 97 97 Oxygen Delivery Nasal Cannula Room Air Oxygen Flow Rate 2 08/22/24 08:00 Temperature Pulse Rate 77 Respiratory Rate Blood Pressure Pulse Oximetry Oxygen Delivery Oxygen Flow Rate Exam Narrative: * GENERAL: Alert and oriented x 3. increased work of breathing difficulty catching his breath during conversation pleasant male * EYES: EOMI. No scleral icterus. PERRLA. * HEENT: Moist mucous membranes. * LUNGS: diminished wheezing to auscultation bilaterally. increased work of breathing use of accessory muscles with nonproductive cough noticeable shortness of breath even with conversations * CARDIOVASCULAR: Regular rate and rhythm. No murmur. No JVD. S1-S2 * ABDOMEN: Soft, non tenderness and non-distended. No palpable masses. * EXTREMITIES: No edema. Non-tender * SKIN: No rashes or lesions. Skin warm, dry. * NEUROLOGIC: No focal neurological deficits. CN II-XII grossly intact * PSYCHIATRIC: Appropriate mood and affect. Good judgement and insight. No visual or auditory hallucinations. No suicidal or homicidal ideation. H&P: Results Labs Labs: Short CBC 08/21/24 08/21/24 08/22/24 Range/Units 12:47 20:35 05:06 WBC 13.4 H 9.4 10.3 (4.8-10.8) K/mm3 Hgb 12.4 11.8 L 11.6 L (12.4-15.3) g/dL Hct 39.3 37.7 37.0 (37.0-46.0) % Plt Count 251 236 248 (150-420) K/mm3 BMP 08/21/24 08/22/24 12:47 05:35 Sodium 139 139 Potassium 3.7 4.0 Chloride 101 102 Carbon Dioxide 27 27 BUN 17 18 Creatinine 1.44 H 1.36 H Glucose 123 H 137 H Calcium 8.9 8.6 Cardiac Enzymes 08/21/24 Range/Units 12:47 Troponin I 15.6 (0.00-60.4) ng/L Liver Function 08/21/24 08/22/24 Range/Units 12:47 05:35 Total Bilirubin 0.6 0.4 (0.00-1.00) mg/dL AST 14 L 12 L (15-37) U/L ALT 22 16 (16-63) U/L Alkaline Phosphatase 85 80 (46-116) U/L Albumin 2.9 L 2.7 L (3.4-5.0) g/dL Urine 08/21/24 Range/Units 12:29 Urine Color Yellow (Yellow) Urine Appearance Clear (Clear) Urine pH 5.5 (5.0-8.0) Ur Specific [place] 1.020 (1.010-1.020) Urine Protein 1+ H (Negative) Urine Glucose (UA) Negative (Negative) Imaging Chest x-ray: Radiologist's impression: XR chest 1V portable Ordering provider: Ravinder Montero MD History: 74 years Male with . sob ACUTE . Comparison: August 01, 2024 FINDINGS: MEDIASTINUM: The cardiac silhouette is not enlarged. LUNGS: No effusions or pneumothorax. Minimal opacification in the left supradiaphragmatic area. Emphysematous changes. Calcification in the right suprahilar area unchanged. OTHER: No free air under the diaphragm. Degenerative changes of the spine with mild scoliosis. Healing left fifth rib fracture in the upper thorax IMPRESSION: Left basilar atelectasis versus pneumonia. Otherwise, No acute cardiopulmonary pathology. Assessment and Plan Assessment and plan (1) COPD (chronic obstructive pulmonary disease): Qualifiers: COPD type: unspecified COPD Qualified Code(s): J44.9 - Chronic obstructive pulmonary disease, unspecified Code(s): J44.9 - Chronic obstructive pulmonary disease, unspecified Status: Chronic Assessment and Plan: * levalbuterol due to episodes of AFIB with rates in low 100's * Chest x-ray Severe emphysema, atelectasis versus pneumonia * incentive spirometry while awake. * steroids initiated 40 IVP TID * add mucolytic * Claritin at night patient reported post nasal drip * azithromycin 500 PO daily/ Rocephin IV * supplemental oxygen therapy to maintain oxygen 92%/ On room air at 97% but noticeable work of breathing and shortness of breaths * Pulmonary rehab if indicated. has had previously follows with pulmonology outpatient Of note patient is under consultation at [facility] pulmonology for bronchoscopic lung volume reduction BLVR/EBV * Evaluation from home O2 if saturation less than 88% on room air. * Former smoker * Follow-up with copper plate lithographer as an outpatient for PFT testing and sleep study * PFT 01/12/24 - severe obstructive ventilatory impairment without response to bronchodilator, normal lung volumes, and a moderate diffusion impairment. This pattern is consistent with emphysema. Compared to a prior study 02/20/2020, there has been progression of the obstructive process and progression of the diffusion impairment. (2) CAP (community acquired pneumonia): Code(s): J18.9 - Pneumonia, unspecified organism Status: Acute Assessment and Plan: SEE ABOVE #1 Treat for suspicion of community-acquired pneumonia (3) Heart failure with reduced ejection fraction: Code(s): I50.20 - Unspecified systolic (congestive) heart failure Status: Acute Assessment and Plan: * pBNP 999 POA * given 20mg IVP lasix in ED * is compensating does not appear in exacerbation * previous echocardiogram results: Echo 04/25/23 - EF 40-45%, no pulmHTN. * EKG AFIB * chest x-ray reviewed showing severe emphysema * resume Antiplatelet therapy, statin therapy (4) Persistent atrial fibrillation: Code(s): I48.19 - Other persistent atrial fibrillation Status: Acute Assessment and Plan: * Rate controlled * previous cardioversions * resume Cardizem * resume patient's Eliquis * cardiac monitoring * changed his duo nebs to Levalbuterol * Mag 1.4 2 gram given * Will add 400mg daily mag (5) CKD (chronic kidney disease) stage 3, GFR 30-59 ml/min: Code(s): N18.3 - Chronic kidney disease, stage 3 (moderate) Status: Acute Assessment and Plan: * Stable Cr 1.36 will monitor during diuresis * Avoid nephrotoxic drugs. * Monitor antihypertensive drug therapy. * Avoid NSAIDs. * Routine CMP monitoring GFR. * Monitor electrolytes especially potassium. * Antibiotic doses depending on creatinine clearance. * Pharmacy does medications. (6) BPH (benign prostatic hyperplasia): Qualifiers: Lower urinary tract symptom presence: unspecified whether lower urinary tract symptoms present Qualified Code(s): N40.0 - Benign prostatic hyperplasia without lower urinary tract symptoms Code(s): N40.0 - Benign prostatic hyperplasia without lower urinary tract symptoms Status: Acute Assessment and Plan: * resume Proscar and Flomax * monitor for urinary retention * bladder scan if no urinary output q.6 hours Plan Code status: Full code per patient DVT prophylaxis: Tim Stress ulcer prophylaxis: GRACIE PT/OT notes: ambulatory Disposition: patient was admitted for COPD exacerbation and possible community-acquired pneumonia will treat with Rocephin and azithromycin was also found to have AFib RVR resumed his Cardizem and Eliquis patient continues with shortness of breaths increased work of breathing and difficulty recovering following any activity will plan on home oxygen walk study prior to discharge. when patient is medically stable plan will be to discharge back to home. Quality VTE Prophylaxis VTE prophylaxis: pharmacologic ordered -Patient's previous records reviewed on admission -ER notes reviewed in detail on admission -discussed all findings and current treatment plan with patient/Family/POA -Consultations reviewed for recommendations -Patient's disposition for safe discharge discussed with manager of case management Dictation performed by [employer] direct speech recognition software, therefore executive meeting manager variants and typographical errors may occur. Hospitalist MIPS Advance Care Plan I have confirmed that the patient's Advanced Care Plan is present, code status is documented, or surrogate decision maker is listed in patient medical record.: Yes Medication Reconciliation I have utilized all available resources to obtain, update and review the patients current medications (includes all prescriptions, OTC, herbals, cannabis, and nutritional supplements).: Yes The patient is not eligible for med reconciliation; the patient is in a emergent medical situation where delaying treatment would jeopardize the patients health.: No
[2024-08-22] MEDS: BUDESONIDE RESPULE NEB 0.5 MG/2 ML AMP INHALATION ×2 (13:05→16:52)
[2024-08-22] MEDS: predniSONE 20 MG TABLET 40 MG PO (13:15)
--- NOTE | 2024-08-22 15:07 | HOMEO2EVAL ---
Evaluation was performed at [facility]: Home Oxygen (O2) Evaluation Start: 08/22/24 09:03 Freq: ONCE Status: Active Protocol: RPE Activity Type Activity Date Activity User E-sign Co-sign Detail Recorded Client Recorded Date Recorded By Document 08/22/24 14:33 RES [id number] 08/22/24 15:00 RES Document 08/22/24 14:35 RES [id number] 08/22/24 15:00 RES Document 08/22/24 14:36 RES [id number] 08/22/24 15:00 RES Document 08/22/24 14:37 RES [id number] 08/22/24 15:00 RES Document 08/22/24 14:38 RES [id number] 08/22/24 15:06 RES Document 08/22/24 14:39 RES [id number] 08/22/24 15:06 RES Document 08/22/24 14:40 RES [id number] 08/22/24 15:06 RES Document 08/22/24 14:41 RES [id number] 08/22/24 15:06 RES Document 08/22/24 14:42 RES [id number] 08/22/24 15:06 RES 08/22/24 08/22/24 08/22/24 14:33 14:35 14:36 Home O2 Evaluation [Oxygen] -Test Phase Resting Exercise Exercise -Oxygen Delivery Room Air Room Air -Fraction of Inspired Oxygen (%) 21 21 21 [Pulse Oximetry] -Pulse Oximetry (90-100 %) 96 97 92 [Pulse Rate] -Pulse Rate (60-100 beats/min) 101 H 96 102 H [Evaluation] -Activity Tolerance Good Good Good -Rating of Perceived Dyspnea (PD) +2 Mild, Some +1 Mild, +1 Mild, Difficulty, Noticeable to Noticeable to Noticeable to the Participant the Participant the Observer but Not to an but Not to an Observer Observer -Rate of Perceived Exertion (PE) 8 8 9 Very light Query Text:Click the Protocol Button to View the RPE Scale [Exercise] -Ambulation Distance (feet) -Ambulation Distance (meters) [Comments] -Home Oxygen Evaluation Comments [Charges] -Evaluation Charges O2 Evaluation Charge 08/22/24 08/22/24 08/22/24 14:37 14:38 14:39 Home O2 Evaluation [Oxygen] -Test Phase Exercise Exercise Exercise -Oxygen Delivery Room Air Room Air Room Air -Fraction of Inspired Oxygen (%) 21 21 21 [Pulse Oximetry] -Pulse Oximetry (90-100 %) 93 93 93 [Pulse Rate] -Pulse Rate (60-100 beats/min) 139 H 119 H 126 H [Evaluation] -Activity Tolerance Good Good Good -Rating of Perceived Dyspnea (PD) +1 Mild, +2 Mild, Some +2 Mild, Some Noticeable to Difficulty, Difficulty, the Participant Noticeable to Noticeable to but Not to an the Observer the Observer Observer -Rate of Perceived Exertion (PE) 9 Very light 10 10 Query Text:Click the Protocol Button to View the RPE Scale [Exercise] -Ambulation Distance (feet) -Ambulation Distance (meters) [Comments] -Home Oxygen Evaluation Comments Patient did have to stop a few times to catch his breath. [Charges] -Evaluation Charges 08/22/24 08/22/24 08/22/24 14:40 14:41 14:42 Home O2 Evaluation [Oxygen] -Test Phase Exercise Resting Resting -Oxygen Delivery Room Air Room Air Room Air -Fraction of Inspired Oxygen (%) 21 21 21 [Pulse Oximetry] -Pulse Oximetry (90-100 %) 92 92 95 [Pulse Rate] -Pulse Rate (60-100 beats/min) 140 H 135 H 124 H [Evaluation] -Activity Tolerance Good Good Good -Rating of Perceived Dyspnea (PD) +2 Mild, Some +2 Mild, Some +2 Mild, Some Difficulty, Difficulty, Difficulty, Noticeable to Noticeable to Noticeable to the Observer the Observer the Observer -Rate of Perceived Exertion (PE) 11 Fairly light 12 12 Query Text:Click the Protocol Button to View the RPE Scale [Exercise] -Ambulation Distance (feet) 900 -Ambulation Distance (meters) 274.30 [Comments] -Home Oxygen Evaluation Comments [Charges] -Evaluation Charges
[2024-08-22] MEDS: guaiFENesin 12 HR 600 MG TABCR 1200 MG PO (21:23)
[2024-08-22] MEDS: SERTRALINE HCL 25 MG TABLET PO (21:23)
[2024-08-23] VITALS (9 sets, daily range): BP systolic 127–147; BP diastolic 60–84; PULSE 60–94; RESP 18–20; TEMP 35.8–36.7; O2SAT 95–98
[2024-08-23] MEDS: BUDESONIDE RESPULE NEB 0.5 MG/2 ML AMP INHALATION ×2 (05:29→17:45)
[2024-08-23] MEDS: APIXABAN 2.5 MG TABLET 5 MG PO ×2 (09:12→21:05)
[2024-08-23] MEDS: MAGNESIUM OXIDE 400 MG TABLET PO (09:12)
[2024-08-23] MEDS: predniSONE 20 MG TABLET 40 MG PO (09:13)
[2024-08-23] MEDS: dilTIAZem HCL CD 180 MG CAP.24HR PO (09:13)
[2024-08-23] MEDS: TAMSULOSIN HCL 0.4 MG CAPSULE PO ×2 (09:13→17:45)
[2024-08-23] MEDS: guaiFENesin 12 HR 600 MG TABCR 1200 MG PO ×2 (09:13→21:05)
[2024-08-23] MEDS: AZITHROMYCIN 250 MG TABLET 500 MG PO (09:13)
[2024-08-23] MEDS: FINASTERIDE 5 MG TABLET PO (09:13)
[2024-08-23] MEDS: PRAVASTATIN SODIUM 20 MG TABLET PO (09:13)
--- NOTE | 2024-08-23 09:38 | P.PNIM_ITS ---
Progress Note: A&P Assessment and Plan (1) COPD (chronic obstructive pulmonary disease): Qualifiers: COPD type: unspecified COPD Qualified Code(s): J44.9 - Chronic obstructive pulmonary disease, unspecified Code(s): J44.9 - Chronic obstructive pulmonary disease, unspecified Status: Chronic Assessment and Plan: * levalbuterol due to episodes of AFIB with rates in low 100's * Chest x-ray Severe emphysema, atelectasis versus pneumonia * incentive spirometry while awake. * steroids initiated 40 IVP TID * add mucolytic * Claritin at night patient reported post nasal drip * azithromycin 500 PO daily/ Rocephin IV * supplemental oxygen therapy to maintain oxygen 92%/ On room air at 97% but noticeable work of breathing and shortness of breaths * Pulmonary rehab if indicated. has had previously follows with pulmonology outpatient Of note patient is under consultation at [facility] pulmonology for bronchoscopic lung volume reduction BLVR/EBV * Evaluation from home O2 if saturation less than 88% on room air. * Former smoker * Follow-up with customer care representative as an outpatient for PFT testing and sleep study * PFT 01/12/24 - severe obstructive ventilatory impairment without response to bronchodilator, normal lung volumes, and a moderate diffusion impairment. This pattern is consistent with emphysema. Compared to a prior study 02/20/2020, there has been progression of the obstructive process and progression of the diffusion impairment. 08/23/2024 * added Pulmicort * home oxygen no required at this time (2) CAP (community acquired pneumonia): Code(s): J18.9 - Pneumonia, unspecified organism Status: Acute Assessment and Plan: SEE ABOVE #1 Treat for suspicion of community-acquired pneumonia (3) Heart failure with reduced ejection fraction: Code(s): I50.20 - Unspecified systolic (congestive) heart failure Status: Acute Assessment and Plan: * pBNP 999 POA * given 20mg IVP lasix in ED * is compensating does not appear in exacerbation * previous echocardiogram results: Echo 04/25/23 - EF 40-45%, no pulmHTN. * EKG AFIB * chest x-ray reviewed showing severe emphysema * resume Antiplatelet therapy, statin therapy (4) Persistent atrial fibrillation: Code(s): I48.19 - Other persistent atrial fibrillation Status: Acute Assessment and Plan: * Rate controlled * previous cardioversions * resume Cardizem * resume patient's Eliquis * cardiac monitoring * changed his duo nebs to Levalbuterol * Mag 1.4 2 gram given * Will add 400mg daily mag (5) CKD (chronic kidney disease) stage 3, GFR 30-59 ml/min: Code(s): N18.3 - Chronic kidney disease, stage 3 (moderate) Status: Acute Assessment and Plan: * Stable Cr 1.36 will monitor during diuresis * Avoid nephrotoxic drugs. * Monitor antihypertensive drug therapy. * Avoid NSAIDs. * Routine CMP monitoring GFR. * Monitor electrolytes especially potassium. * Antibiotic doses depending on creatinine clearance. * Pharmacy does medications. (6) BPH (benign prostatic hyperplasia): Qualifiers: Lower urinary tract symptom presence: unspecified whether lower urinary tract symptoms present Qualified Code(s): N40.0 - Benign prostatic hyperplasia without lower urinary tract symptoms Code(s): N40.0 - Benign prostatic hyperplasia without lower urinary tract symptoms Status: Acute Assessment and Plan: * resume Proscar and Flomax * monitor for urinary retention * bladder scan if no urinary output q.6 hours Plan Code status: Full code per patient DVT prophylaxis: Eliquis Stress ulcer prophylaxis: NA PT/OT notes: PT Pending Disposition: Patient was admitted for COPD exacerbation and possible community-acquired pneumonia will treat with Rocephin and azithromycin was also found to have AFib RVR resumed his Cardizem and Eliquis patient continues with shortness of breaths increased work of breathing and difficulty recovering following any activity will plan on home oxygen walk study prior to discharge. when patient is medically stable plan will be to discharge back to home. Time Spent With Patient Time with patient: 15 - 25 minutes Subjective Date/time seen: 08/23/24 09:38 Interval history: patient is a 74-year-old male who was admitted for acute respiratory failure with hypoxia secondary to COPD exacerbation 08/23/2024: patient continues to worsening shortness of breath with exertion with productive cough but was able to wean off oxygen. patient denied any fevers chills or chest pain however did report some dizziness this a.m. while ambulating to the restroom continues to have difficulty recovering after any activity. Review of Systems Review of Systems: All systems reviewed & are unremarkable except as noted in HPI and below Exam Narrative: * GENERAL: Alert and oriented x 3. increased work of breathing difficulty catching his breath during conversation pleasant male * EYES: EOMI. No scleral icterus. PERRLA. * HEENT: Moist mucous membranes. * LUNGS: diminished wheezing to auscultation bilaterally. increased work of breathing use of accessory muscles with nonproductive cough noticeable shortness of breath even with conversations * CARDIOVASCULAR: Regular rate and rhythm. No murmur. No JVD. S1-S2 * ABDOMEN: Soft, non tenderness and non-distended. No palpable masses. * EXTREMITIES: No edema. Non-tender * SKIN: No rashes or lesions. Skin warm, dry. * NEUROLOGIC: No focal neurological deficits. CN II-XII grossly intact * PSYCHIATRIC: Appropriate mood and affect. Good judgement and insight. No visual or auditory hallucinations. No suicidal or homicidal ideation. Objective Data Vital Signs Vital Signs: Vital Signs - 24 hr 08/22/24 12:00 08/22/24 12:00 08/22/24 13:05 Temperature 96.9 F L Pulse Rate 92 90 86 Respiratory Rate 20 20 Blood Pressure 114/68 Pulse Oximetry 98 98 Oxygen Delivery Room Air Fraction of Inspired Oxygen 08/22/24 13:12 08/22/24 14:33 08/22/24 14:35 Temperature Pulse Rate 92 101 H 96 Respiratory Rate 20 Blood Pressure Pulse Oximetry 98 96 97 Oxygen Delivery Room Air Fraction of Inspired Oxygen 08/22/24 14:36 08/22/24 14:37 08/22/24 14:38 Temperature Pulse Rate 102 H 139 H 119 H Respiratory Rate Blood Pressure Pulse Oximetry 92 93 93 Oxygen Delivery Room Air Room Air Room Air Fraction of Inspired Oxygen 21 08/22/24 14:39 08/22/24 14:40 08/22/24 14:41 Temperature Pulse Rate 126 H 140 H 135 H Respiratory Rate Blood Pressure Pulse Oximetry 93 92 92 Oxygen Delivery Room Air Room Air Room Air Fraction of Inspired Oxygen 08/22/24 14:42 08/22/24 16:00 08/22/24 16:00 Temperature 96.7 F L Pulse Rate 124 H 92 86 Respiratory Rate 20 Blood Pressure 142/74 H Pulse Oximetry 95 97 Oxygen Delivery Room Air Room Air Fraction of Inspired Oxygen 08/22/24 16:50 08/22/24 17:00 08/22/24 20:00 Temperature Pulse Rate 89 92 89 Respiratory Rate 20 20 Blood Pressure Pulse Oximetry 98 98 Oxygen Delivery Fraction of Inspired Oxygen 08/22/24 20:00 08/23/24 00:00 08/23/24 00:00 Temperature 98.1 F 98.1 F Pulse Rate 76 79 76 Respiratory Rate 18 18 Blood Pressure 147/64 H 147/64 H Pulse Oximetry 97 97 Oxygen Delivery Room Air Room Air Fraction of Inspired Oxygen 08/23/24 04:00 08/23/24 04:00 08/23/24 05:30 Temperature 98.0 F Pulse Rate 71 71 94 Respiratory Rate 18 20 Blood Pressure 140/60 Pulse Oximetry 96 96 Oxygen Delivery Room Air Fraction of Inspired Oxygen 08/23/24 05:47 08/23/24 07:45 08/23/24 08:20 Temperature 96.6 F L Pulse Rate 87 84 60 Respiratory Rate 18 18 Blood Pressure 127/70 Pulse Oximetry 97 96 Oxygen Delivery Room Air Fraction of Inspired Oxygen Intake/Output Intake/Output: Intake & Output 08/20/24 08/21/24 08/22/24 08/23/24 23:59 23:59 23:59 23:59 Intake Total 200 2260 400 Output Total 037 235 5515 Balance -600 1360 -800 Meds/Results Medications: Active Medications Generic Name Dose Route Start Last Admin Trade Name Freq PRN Reason Stop Dose Admin Acetaminophen 650 mg 08/21/24 18:14 08/21/24 21:34 Acetaminophen 325 Mg Tablet PO 650 mg Q6H PRN Administration Pain or Fever Alprazolam 0.5 mg 08/22/24 09:00 08/22/24 21:23 Alprazolam (*Crx) 0.5 Mg Tablet PO 0.5 mg TID PRN Administration Anxiety Apixaban 5 mg 08/21/24 21:00 08/23/24 09:12 Apixaban 2.5 Mg Tablet PO 5 mg Q12HR AMEE Administration Azithromycin 500 mg 08/22/24 09:00 08/23/24 09:13 Azithromycin 250 Mg Tablet PO 500 mg DAILY AMEE Administration Budesonide 0.5 mg 08/22/24 12:50 08/23/24 05:29 Budesonide Respule Neb 0.5 Mg/2 Ml Amp INHALATION 0.5 mg Q12HRT AMEE Administration Diltiazem HCl 180 mg 08/22/24 09:00 08/23/24 09:13 Diltiazem Hcl Cd 180 Mg Cap.24hr PO 180 mg DAILY AMEE Administration Finasteride 5 mg 08/22/24 09:00 08/23/24 09:13 Finasteride 5 Mg Tablet PO 5 mg DAILY AMEE Administration Guaifenesin 1,200 mg 08/22/24 21:00 08/23/24 09:13 Guaifenesin 12 Hr 600 Mg Tabcr PO 1,200 mg Q12HR AMEE Administration Magnesium Oxide 400 mg 08/23/24 09:00 08/23/24 09:12 Magnesium Oxide 400 Mg Tablet PO 400 mg DAILY AMEE Administration Ondansetron HCl 4 mg 08/21/24 20:12 Ondansetron Inj 4 Mg/2 Ml Vial IV PUSH Q6H PRN Nausea And Vomiting Pravastatin Sodium 20 mg 08/22/24 09:00 08/23/24 09:13 Pravastatin Sodium 20 Mg Tablet PO 20 mg DAILY AMEE Administration Prednisone 40 mg 08/22/24 12:50 08/23/24 09:13 Prednisone 20 Mg Tablet PO 40 mg DAILY@0800 AMEE Administration Sertraline HCl 25 mg 08/22/24 21:00 08/22/24 21:23 Sertraline Hcl 25 Mg Tablet PO 25 mg QHS AMEE Administration Tamsulosin HCl 0.4 mg 08/21/24 20:25 08/23/24 09:13 Tamsulosin Hcl 0.4 Mg Capsule PO 0.4 mg BID AMEE Administration Radiology Results: ITS Impressions Chest X-Ray 08/21/24 12:41 IMPRESSION: Left basilar atelectasis versus pneumonia. Otherwise, No acute cardiopulmonary pathology. Labs Labs: Laboratory Results - last 24 hr 08/22/24 05:35 Sodium 139 Potassium 4.0 Chloride 102 Carbon Dioxide 27 Anion Gap 10 BUN 18 Creatinine 1.36 H Estim Creat Clear Calc 43 Estimated GFR 52 L Glucose 137 H Calculated Osmolality 291 Calcium 8.6 Magnesium 1.6 L Total Bilirubin 0.4 AST 12 L ALT 16 Alkaline Phosphatase 80 Total Protein 5.9 L Albumin 2.7 L Quality VTE Prophylaxis VTE prophylaxis: pharmacologic ordered -Patient's previous records reviewed on admission -ER notes reviewed in detail on admission -discussed all findings and current treatment plan with patient/Family/POA -Consultations reviewed for recommendations -Patient's disposition for safe discharge discussed with case management social worker Dictation performed by [employer] direct speech recognition software, therefore maintenance supervisor electrical variants and typographical errors may occur. Hospitalist [facility] Advance Care Plan I have confirmed that the patient's Advanced Care Plan is present, code status is documented, or surrogate decision maker is listed in patient medical record.: Yes Medication Reconciliation I have utilized all available resources to obtain, update and review the p atients current medications (includes all prescriptions, OTC, herbals, cannabis, and nutritional supplements).: Yes The patient is not eligible for med reconciliation; the patient is in a emergent medical situation where delaying treatment would jeopardize the patients health.: No
[2024-08-23] MEDS: ALPRAZolam (*CRX) 0.5 MG TABLET PO (21:05)
[2024-08-23] MEDS: SERTRALINE HCL 25 MG TABLET PO (21:05)
[2024-08-24] VITALS (8 sets, daily range): BP systolic 130–144; BP diastolic 70–74; PULSE 60–100; RESP 16–20; TEMP 35.8–36.7; O2SAT 95–97
[2024-08-24] MEDS: BUDESONIDE RESPULE NEB 0.5 MG/2 ML AMP INHALATION (05:31)
[2024-08-24] MEDS: guaiFENesin 12 HR 600 MG TABCR 1200 MG PO (09:22)
[2024-08-24] MEDS: PRAVASTATIN SODIUM 20 MG TABLET PO (09:22)
[2024-08-24] MEDS: FINASTERIDE 5 MG TABLET PO (09:22)
[2024-08-24] MEDS: MAGNESIUM OXIDE 400 MG TABLET PO (09:22)
[2024-08-24] MEDS: dilTIAZem HCL CD 180 MG CAP.24HR PO (09:22)
[2024-08-24] MEDS: predniSONE 20 MG TABLET 40 MG PO (09:23)
[2024-08-24] MEDS: TAMSULOSIN HCL 0.4 MG CAPSULE PO (09:23)
[2024-08-24] MEDS: AZITHROMYCIN 250 MG TABLET 500 MG PO (09:23)
[2024-08-24] MEDS: APIXABAN 2.5 MG TABLET 5 MG PO (09:23)
[2024-08-24] MEDS: ALPRAZolam (*CRX) 0.5 MG TABLET PO (09:23)
--- NOTE | 2024-08-24 09:38 | P.DS_ITS ---
DS: Admitting Diagnosis Discharge Date 08/24/2024 Admitting Diagnosis acute respiratory failure with hypoxia secondary to COPD exacerbation DS: Discharge Diagnosis Discharge Diagnosis (1) COPD (chronic obstructive pulmonary disease): Qualifiers: COPD type: unspecified COPD Qualified Code(s): J44.9 - Chronic obstructive pulmonary disease, unspecified Code(s): J44.9 - Chronic obstructive pulmonary disease, unspecified Status: Chronic Assessment and Plan: * levalbuterol due to episodes of AFIB with rates in low 100's * Chest x-ray Severe emphysema, atelectasis versus pneumonia * incentive spirometry while awake. * steroids initiated 40 IVP TID * add mucolytic * Claritin at night patient reported post nasal drip * azithromycin 500 PO daily/ Rocephin IV * supplemental oxygen therapy to maintain oxygen 92%/ On room air at 97% but noticeable work of breathing and shortness of breaths * Pulmonary rehab if indicated. has had previously follows with pulmonology outpatient Of note patient is under consultation at [facility] pulmonology for bronchoscopic lung volume reduction BLVR/EBV * Evaluation from home O2 if saturation less than 88% on room air. * Former smoker * Follow-up with game designer/creative director as an outpatient for PFT testing and sleep study * PFT 01/12/24 - severe obstructive ventilatory impairment without response to bronchodilator, normal lung volumes, and a moderate diffusion impairment. This pattern is consistent with emphysema. Compared to a prior study 02/20/2020, there has been progression of the obstructive process and progression of the diffusion impairment. 08/23/2024 * added Pulmicort * home oxygen no required at this time DISCHARGED on oral steroid and Azithromycin with order for pulmonary rehab and physical therapy (2) CAP (community acquired pneumonia): Code(s): J18.9 - Pneumonia, unspecified organism Status: Acute Assessment and Plan: SEE ABOVE #1 Treat for suspicion of community-acquired pneumonia (3) Heart failure with reduced ejection fraction: Code(s): I50.20 - Unspecified systolic (congestive) heart failure Status: Acute Assessment and Plan: * pBNP 999 POA * given 20mg IVP lasix in ED * is compensating does not appear in exacerbation * previous echocardiogram results: Echo 04/25/23 - EF 40-45%, no pulmHTN. * EKG AFIB * chest x-ray reviewed showing severe emphysema * resume Antiplatelet therapy, statin therapy (4) Persistent atrial fibrillation: Code(s): I48.19 - Other persistent atrial fibrillation Status: Acute Assessment and Plan: * Rate controlled * previous cardioversions * resume Cardizem * resume patient's Eliquis * cardiac monitoring * changed his duo nebs to Levalbuterol * Mag 1.4 2 gram given * Will add 400mg daily mag (5) CKD (chronic kidney disease) stage 3, GFR 30-59 ml/min: Code(s): N18.3 - Chronic kidney disease, stage 3 (moderate) Status: Acute Assessment and Plan: * Stable Cr 1.36 will monitor during diuresis * Avoid nephrotoxic drugs. * Monitor antihypertensive drug therapy. * Avoid NSAIDs. * Routine CMP monitoring GFR. * Monitor electrolytes especially potassium. * Antibiotic doses depending on creatinine clearance. * Pharmacy does medications. (6) BPH (benign prostatic hyperplasia): Qualifiers: Lower urinary tract symptom presence: unspecified whether lower urinary tract symptoms present Qualified Code(s): N40.0 - Benign prostatic hyperplasia without lower urinary tract symptoms Code(s): N40.0 - Benign prostatic hyperplasia without lower urinary tract symptoms Status: Acute Assessment and Plan: * resume Proscar and Flomax * monitor for urinary retention * bladder scan if no urinary output q.6 hours Plan Disposition: Discharged to home DS: Summary Hospital Course Reason for hospitalization: acute respiratory failure with hypoxia secondary to COPD exacerbation Hospital Course: Patient is a 74-year-old male who presented to the emergency department with complaints of shortness of breath and hypoxia. patient states while at home he has had increased shortness of breath but after a short distance he stopped checked his at home pulse ox which showed an oxygen saturation of 79% and a heart rate of 170. Patient reports he called his daughter who is an ER nurse and she advised him to go to the emergency department for further evaluation and treatment. Patient does have a history of COPD emphysema, CKD 3, CAD, NE, atrial fibrillation, CHF, remission of oral cancer, and HLD. patient states he attempted to use his inhalers and nebulizers however symptoms did not improve. upon arrival patient was showing acute respiratory failure with hypoxia secondary to COPD exacerbation he was placed on supplemental oxygen and admitted to the medical unit. Patient's BNP was mildly elevated and he was given 20 IV push of Lasix, CXR suggestive of left basilar atelectasis versus pneumonia however patient had small bump in WBC at 13.4 but he had just been on a course of steroids outpatient less likely pneumonia. patient's EKG was also showing atrial fibrillation with RVR at 108 he was resumed on oral diltiazem. patient denied any chest pain, fever, chills, nausea, vomiting and has not been around any sick contacts. Patient was started on steroids, Levalbuterol, azithromycin, mucolytics in incentive spirometer with overall improvement was able to wean off of oxygen and had a home oxygen walk study performed which at this time patient did not meet requirements for home supplemental oxygen. patient with severe obstructive airway disease secondary emphysema plan to follow-up with game designer/creative director outpatient will need further PFT testing and recommended a sleep study. patient with mild anxiety started on low-dose Zoloft will need re-evaluation with primary in 30 days. initially on arrival patient was in AFib RVR but after administration of his oral diltiazem he was better controlled he was also resumed on his home dose of Eliquis patient seen and assessed on day of discharge back to baseline 96% on room air still with mild dyspnea with exertion recommended frequent rest periods for recovery, provided order for pulmonary rehab and physical therapy outpatient as well as a follow-up with game designer/creative director for further PFT testing and sleep study. Patient acknowledged and agreed with discharge plan. Status at Discharge Functional status at discharge: independent ambulation Time Spent with Patient Time attestation: Total time spent providing and/or coordinating discharge services: Time spent: Greater than 30 minutes Exam Narrative: * GENERAL: Alert and oriented x 3. * EYES: EOMI. No scleral icterus. PERRLA. * HEENT: Moist mucous membranes. * LUNGS: diminished to auscultation bilaterally. * CARDIOVASCULAR: Regular rate and rhythm. No murmur. No JVD. S1-S2 * ABDOMEN: Soft, non tenderness and non-distended. No palpable masses. * EXTREMITIES: No edema. Non-tender * SKIN: No rashes or lesions. Skin warm, dry. * NEUROLOGIC: No focal neurological deficits. CN II-XII grossly intact * PSYCHIATRIC: Appropriate mood and affect. Good judgement and insight. No visual or auditory hallucinations. No suicidal or homicidal ideation. DS: Data Data Completed and Pending Labs on day of discharge: Labs from last 24 hours 08/21/24 12:47 Total Hemoglobin Not Reportable Imaging Radiologist's impression: Radiology Results: ITS Impressions Chest X-Ray 08/21/24 12:41 IMPRESSION: Left basilar atelectasis versus pneumonia. Otherwise, No acute cardiopulmonary pathology. Discharge Plan Discharge Attending physician on discharge: Philip Johns Discharging Clinician: Jenn Laguna Anticipated Discharge Date/Time: 08/24/24 08:26 Patient Disposition: Home, Self-Care Activity: as tolerated Diet: heart healthy Discharge Instructions: You are being discharged to home after treatment for COPD exacerbation * I encourage frequent rest periods with activity * I did perform and Oxygen walk study and at this time you were not meeting requirements for supplemental oxygen * Please follow-up with pulmonology for PFT testing and possible sleep study * I added an antihistamine to be taken night * I have also provided and order for Pulmonary rehab and physical therapy * I have attached information regarding your diagnosis for education and prevention of exacerbation How can you care for yourself at home? ? Keep track of any new symptoms or changes in your symptoms. ? Rest until you feel better. ? Be safe with medicines. Take your medicines exactly as prescribed. Call your doctor if you think you are having a problem with your medicine. ? Do not drive after taking a prescription pain medicine. ? Ensure to follow-up with primary care physician as indicated and provide updated medication list provided to you at discharge. When should you call for help? Call 911 anytime you think you may need emergency care. For example, call if: ? You passed out (lost consciousness). Call your doctor now or seek immediate medical care if: ? You have new symptoms like fever, difficulty breathing, Chest pain, vomiting, or rash. ? You have new or different pain. ? You are confused and are having trouble thinking clearly. ? Your symptoms are getting worse. Watch closely for changes in your health, and be sure to contact your doctor if: ? You do not get better as expected. Patient Instructions: Antibiotic Form, Fall Prevention for Older Adults (DC), Emphysema (DC), COPD (Chronic Obstructive Pulmonary Disease) (DC), Fall Prevention (DC), Chronic Lung Disease and Infection Prevention (DC), Energy Conservation Techniques (DC), Dyspnea Scale and Exercise (DC) Patient Language: Cymro Stand Alone Forms: General Discharge Information Follow-up/Referrals: Stephani Carmona MD [Physician] - Call for Appointment (Call for an appointment MOR[facility]) Yadira,Liliana Francisco MD [Primary Care Provider] - 2 weeks Discharge Medications: New prednisone 20 mg Tablet 40 mg PO DAILY@0800 Qty: 6 0RF sertraline [Zoloft] 50 mg Tablet 25 mg PO QHS Qty: 30 0RF azithromycin [Zithromax] 250 mg Tablet 500 mg PO DAILY Qty: 4 0RF Continued pravastatin 20 mg tablet 20 mg PO DAILY Rx Instructions: TAKE ONE TABLET BY MOUTH DAILY roflumilast [Daliresp] 500 mcg tablet 500 mcg PO DAILY diltiazem HCl 180 mg capsule,extended release 24hr 180 mg PO DAILY loratadine 10 mg Tablet 10 mg PO QHS Qty: 30 0RF guaifenesin [Mucus Relief ER] 600 mg Tablet Extended Release 12hr 1,200 mg PO Q12HR Qty: 30 0RF finasteride 5 mg tablet 5 mg PO DAILY magnesium oxide 400 mg (241.3 mg magnesium) Tablet 400 mg PO DAILY Qty: 30 0RF Eliquis 5 mg tablet 5 mg PO BID Qty: 180 3RF albuterol sulfate 90 mcg/actuation HFA aerosol inhaler 1 - 2 inh inhalation Q4-6H PRN (Reason: shortness of breath or wheezing) 90 Days Qty: 25.5 2RF Trelegy Ellipta 100-62.5-25 mcg blister with device 1 inh inhalation Q24H omeprazole 40 mg capsule,delayed release(DR/EC) 40 mg PO DAILY Qty: 100 1RF tamsulosin 0.4 mg capsule 0.4 mg PO BID Qty: 60 2RF ipratropium bromide 0.02 % solution 2.5 ml inhalation Q6H PRN (Reason: shortness of breath or wheezing) Qty: 75 3RF Trelegy Ellipta 100-62.5-25 mcg blister with device 1 inh INHALATION DAILY Qty: 60 0RF Discontinued apixaban 5 mg tablet 5 mg tablet 0RF Other Ambulatory Orders: PT Outpatient Eval and Treat (ONCE) Timeframe: [id number] Location: Determined by Patient Ordered By: Jenn Laguna Pulmonary Rehabilitation (Routine) Timeframe: 2 Weeks Location: Determined by Patient Ordered By: Jenn Laguna Date of admission: 08/21/24 18:08 Primary Care Provider: YadiraLiliana Admitting Provider: Philip Johns Attending physician on admission: Jenn Laguna Condition: Stable Quality VTE Prophylaxis VTE prophylaxis: pharmacologic ordered Hospitalist MIPS Heart Failure (Exclusion) Patient has history of Heart Transplant or Left Ventricular Assistive Device?: No IF YES, STOP HERE Heart Failure (Qualifier) Patient has current or prior documentation of LVEF less than or equal to 40%, or mod/servere depressed LVSF?: No IF NO, STOP HERE
--- NOTE | 2024-08-24 14:05 | PC.NURSE ---
Patient discharging home, all discharge instructions and education reviewed with patient. Patient states understanding. IV site to left arm removed, tip intact. Dressing applied to site. All belongings gathered together and sent home with patient. Patient accompanied to front door via wheelchair by this nurse. Left via private vehicle with son.
--- NOTE | 2024-08-27 11:06 | PC.NURSE ---
Discharge call back completed, doing ok did have an anxiety attack this am with breathing, but is working through it, ok now, no questions regarding dc instructions
== END 2024-08-24 14:05 | disposition home or self-care (01) ==
LOC: CHSED 12:32 → CHS2ND 18:16
PROVIDERS: Admitting Provider Internal Medicine; Emergency Provider Family Medicine; PCP Family Medicine; Visit Provider Nurse Practitioner Family
DX: J44.1 Chronic obstructive pulmonary disease with (acute) exacerbation (principal); J96.01 Acute respiratory failure with hypoxia; J43.9 Emphysema, unspecified; R91.8 Other nonspecific abnormal finding of lung field; I13.0 Hypertensive heart and chronic kidney disease with heart failure and stage 1 through stage 4 chronic kidney disease, or unspecified chronic kidney disease; I50.22 Chronic systolic (congestive) heart failure; N18.30 Chronic kidney disease, stage 3 unspecified; I48.19 Other persistent atrial fibrillation; I25.10 Atherosclerotic heart disease of native coronary artery without angina pectoris; I25.2 Old myocardial infarction; N40.0 Benign prostatic hyperplasia without lower urinary tract symptoms; M81.0 Age-related osteoporosis without current pathological fracture; E78.5 Hyperlipidemia, unspecified; K21.9 Gastro-esophageal reflux disease without esophagitis; Z87.891 Personal history of nicotine dependence; Z79.01 Long term (current) use of anticoagulants; Z79.51 Long term (current) use of inhaled steroids; Z79.899 Other long term (current) drug therapy; Z85.818 Personal history of malignant neoplasm of other sites of lip, oral cavity, and pharynx
CPT/HCPCS: 36415; 36600; 71045; 80053; 81001; 82805; 83735; 83880; 84484; 85018; 85025; 85380; 93005; 94618; 94640; 96365; 96366; 96367; 96368; 96374; 96375; 97161; 99285; A9270; G0378; J0696; J1940; J2060; J2919; J3475; J7512

== ENCOUNTER 2024-09-05 11:31 | Outpatient (CLI) | payer MEDICARE, OTHER, SELFPAY ==
[2024-09-05 11:58] LABS: Basophils Absolute Auto 0.1 K/mm3 (0.0-0.1); Basophils Percent Auto 0.5 % (0.2-1.2); Eosinophils Absolute Auto 0.1 K/mm3 (0-0.3); Eosinophils Percent Auto 0.5 % (0-4.4); Hematocrit 40.1 % (42.0-52.0); Hemoglobin 12.5 g/dL (14.0-18.0); Immature Granulocyte Absolute 0.08 K/mm3 (0.00-0.031); Immature Granulocyte Percent A 0.6 % (0-0.5); Lymphocytes Absolute Auto 1.23 K/mm3 (0.9-3.2); Lymphocytes Percent Auto 9.5 % (18.3-44.2); Mean Corpuscular HGB Conc 31.2 g/dl (32-36); Mean Corpuscular Hemoglobin 25.8 pg (26-34); Mean Corpuscular Volume 82.9 fl (80-100); Mean Platelet Volume 8.8 fl (7.4-10.4); Monocytes Absolute Auto 0.7 K/mm3 (0.1-0.6); Monocytes Percent Auto 5.4 % (2.6-8.5); Neutrophils Absolute Auto 10.8 K/mm3 (1.3-6.7); Neutrophils Percent Auto 83.5 % (45.5-73.1); Platelet Count Result 303 k/mm3 (150-375); Red Blood Count 4.84 M/mm3 (4.6-6.20); Red Cell Distribution Width 15.5 % (11.5-14.5)
[2024-09-05 12:09] LABS: Alanine Aminotransferase 18 U/L (6-50); Albumin Level 3.6 g/dL (3.5-5.1); Alkaline Phosphatase 87 U/L (38-126); Anion Gap 10 mmol/L (4-12); Aspartate Amino Transferase 24 U/L (17-59); Bilirubin,Total 0.6 mg/dL (0.2-1.3); Blood Urea Nitrogen 17 mg/dL (9-20); Calcium 9.9 mg/dL (8.4-10.2); Carbon Dioxide 28 mmol/L (22-30); Chloride 101 mmol/L (98-107); Estimated Glomerular Filt Rate > 60; Glucose 108 mg/dL (65-110); Sodium 139 mmol/L (137-145)
[2024-09-05 12:22] LABS: Troponin I 0.016 ng/mL (0.000-0.034)
--- OUTSIDE RECORDS SUMMARY | 2024-09-05 12:52 | XMS_ITS | Clinical Summary ---
Author Organization [facility] [address] Address [address] [place] [address] Care Team Providers Care Grill Attendant Name Role Phone Liliana May MD Primary Care Provider Moose Singleton MD Unavailable [phone] Allergies Active Allergy Reactions Criticality Noted Date [...] Used Date Smoking Tobacco: Former Cigarettes 0.4 57.1 S tarted: 1968 Smokeless Tobacco: Never Tobacco [...] Sex Male 8:41 AM CDT Gender Identity Male 09/04/2024 11:22 AM FLATWORK FEEDER Sexual Orientation Straight 09/04/2024 11 :22 AM FLATWORK FEEDER Obstetrics History Last Filed Vital Signs Vital [...] Colon Cancer Screening-Colonoscopy 1950 Depression Screening 1950 Hepatitis C Screening 1950 Hepatitis B Screening 01/27/1970 Well Visit 65+ 01/27/2017 Fall Risk Assessment 10/18/2022 10/18/2021 Covid-19 Vaccine (2023-2 5 season) 2024 07/15/2021, 11/10/2020 Influenza Vaccine (#1) 2024 , 05/14/2021, 05/05/2020, Additional history exists DTaP/Tdap/Td Vaccine (2 - Td or Tdap) 03/02/2026 03/02/2016 Pneumococcal vaccine 65+ Completed 02/28/2018, 12/07 Zoster Vaccine Completed 05/06/2018, 02/28/2018 Abdominal Aortic Aneurysm (A AA) Screen Completed 10/01/2021 Medical Devices Implanted Type Area Silk Winding Machine Operator Device Identifier Shelf Expiration Date Model / Serial / Lot Stent N/A: Heart Procedures Procedure Name Priority Date/Time Associated Diagnosis Comments CTA ABDOMINAL AORTA AND BILATERAL ILIOFEMORAL RUNOFF Schedule Routine, Read Routine (OP Routine) 10/01/2021 10:38 AM FLATWORK FEEDER 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 ??Right lower extremity: There is three-vessel [...] Samson Toro M.D. Narrative 10/01/2021 2:02 PM FLATWORK FEEDER EXAMINATION: ??CT ANGIOGRAPHY OF THE ABDOMEN, PELVIS, [...] Recently Relevant to Health Maintenance Insurance MEDICARE [facility] Address: [id number] [place] [address] [employer] MEDICARE [facility] MEDICARE FOR LIFE Advance Directives For more information, please contact: [phone] * Full Code (Latest Code Status on File) Date Activated Date Inactivated Comments 10/16/2021 7:39 PM 10/18/2021 2:11 PM * Full Code Date Activated Date Inactivated Comments 10/09/2021 4:36 PM 10/11/2021 8:52 PM Care Teams Grill Attendant Relationship Specialty Start Date End Date Liliana May MD [address] [place] [address] PCP - General Family Medicine 01/01/21 Moose Singleton MD [address] [place] [address] Consulting Physician Otolaryngology 09/27/21
--- OUTSIDE RECORDS SUMMARY | 2024-09-05 12:52 | XMS_ITS | Encounter Summary ---
Author Organization [facility] Address [address] [place] [address] Care Team Providers Care Breaker Operator Name Role Phone Unavailable Primary Care Provider Unavailabl e Encounter Details Date Type Department Care Team (Late st Contact Info) Description 09/04/2024 External Device Data [facility] ABSTRACTION Provider, Abstract NO ADDRESS ON FILE Social History Tobacco Use Types Packs/Day Years Used Date Smoking Tobacco: Former Cigarettes Smokeless Tobacco: Never Sex and Gender Information Value Date Recorded Sex Assigned at Male 07/05/2024 10:59 AM OPTICAL SCIENTIST Legal Sex Male 1:57 PM OPTICAL SCIENTIST Gender Identity Male 07/05/2024 10:59 AM OPTICAL SCIENTIST Sexual Orientation Straight 07/05/2024 10 :59 AM OPTICAL SCIENTIST documented as of this encounter Plan of Treatment Not on file documented as of this encounter Visit Diagnoses Not on filedocumented in this encounter
--- OUTSIDE RECORDS SUMMARY | 2024-09-05 12:52 | XMS_ITS | Clinical Summary ---
Author Organization [facility] Address [address] [place] [address]. [place], [place] [address] [place] [address] Care Team Providers Care Punch Press Feeder Name Role Phone Unavailable Primary Care Provider [...] (1 - 1-dose 75+ series) 01/27/2027 Meningococcal B Vaccine Aged Out No l onger eligible based on patient's age to complete this topic Meningococcal Vaccine Aged Out No hunter ananth eligible based on patient's age to complete this topic RSV Immunizations Under 20 Months Aged Out No longer eligible based on patient's age to complete this topic
--- OUTSIDE RECORDS SUMMARY | 2024-09-05 12:52 | XMS_ITS ---
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 Past Plans No past plan information found. Radiation Treatments * No radiation treatments are documented for this patient in [facility]. Treatments may have been administered in another system. Lifetime Dose Tracking * Chemical Lifetime Dose Automatic Entry Manual Entr y DLP 3,487 mGycm 3,487 mGycm 0 mGycm
--- OUTSIDE RECORDS SUMMARY | 2024-09-05 12:52 | XMS_ITS | Clinical Summary ---
Author Organization [facility] Address [address] [facility] [place] [address] Phone Care Team Providers Care Transformer Molder Name Role Phone Unavailable Primary Care Provider Unavailabl e Allergies Active Allergy Reactions Criticality Noted Date Comments Lisinopril Cough,Shortness of Breath/Wheezing High 07/09/2018 Sulfa (Sulfonamide Antibiotics) Shortness of Breath/Wheezing High 01/27/2021 Medications albuterol sulfate HFA 90 mcg/actuation aerosol inhaler Take by inhalation. prn 4 Active apixaban (Eliquis) 5 mg tablet Take 5 mg by mouth 2 times daily. 2 Active cetirizine (ZyrTEC) 10 mg tablet Take 10 mg by mouth daily. Active diltiaZEM (CARDIZEM CD) 240 mg Controlled Delivery 24 hour capsule Take 240 mg by mouth daily. 4 Active finasteride (PROSCAR) 5 mg tablet Take 5 mg by mouth daily. 4 Active Trelegy Ellipta 100-62.5-25 mcg Disk with Device Take 1 Puff by inhalation daily. 4 Active formoterol (PERFOROMIST) 20 mcg/2 mL Solution for Nebulization Take 20 mcg by inhalation 2 times daily. 4 Active ipratropium bromide (ATROVENT) 0.02 % Solution Take 0.5 mg by inhalation every 12 hours. 4 Active levoFLOXacin (LEVAQUIN) 750 mg tablet Take 750 mg by mouth daily. 4 Active losartan (COZAAR) 25 mg tablet Take 25 mg by mouth daily. 4 Active metoprolol succinate (TOPROL XL) 25 mg Extended Release 24 hour tablet Take 25 mg by mouth daily. 2 Active nystatin (MYCOSTATIN) 100,000 unit/gram Cream Apply to affected area 2 times daily. 4 Active omeprazole (PriLOSEC) 40 mg Capsule, Delayed Release(E.C.) Take 40 mg by mouth daily. 3 Active pravastatin (PRAVACHOL) 20 mg tablet Take 20 mg by mouth daily. 4 Active predniSONE (DELTASONE) 20 mg tablet Take 20 mg by mouth daily with breakfast. 4 Active roflumilast (DALIRESP) 250 mcg Tablet Take 250 mcg by mouth daily. 4 Active tamsulosin (FLOMAX) 0.4 mg capsule Take 0.4 mg by mouth daily. 4 Active Active Problems No known active problems Encounters Date Type Department Care Team Description 09/04/2024 External Device Data STL ABSTRACTION Provider, Abstract 08/29/2024 External Device Data [facility] ABSTRACTION Provider, Abstract 08/29/2024 External Device Data [facility] ABSTRACTION Provider, Abstract 07/12/2024 11:00 AM DENTAL INSURANCE COORDINATOR - 07/12/2024 11:59 PM DENTAL INSURANCE COORDINATOR Hospital Encounter [facility] Pulmonary Function [address] [place] [address] Discharge Disposition: Home or Self Care 07/12/2024 10:00 AM DENTAL INSURANCE COORDINATOR [facility] [address] [place] [address] Salvador Ansari MD Chronic obstructive pulmonary disease, unspecified COPD type (CMS/HCC) (Primary Dx); Centrilobular emphysema (CMS/HCC); Personal history of tobacco use; Preop pulmonary/respirato ry exam; History of oral cancer 06/26/2024 External Device Data STL ABSTRACTION Provider, Abstract 06/26/2024 Telephone [facility] Pulmonology [address] [place] [address] Salvador Ansari MD Referral 06/20/2024 Abstract [facility]monology [address] [place] [address] Salvador Ansari MD 06/20/2024 [facility] Pulmonology [address] [place] [address] Salvador Ansari MD Referral from Last 3 Months Social History Tobacco Use Types Packs/Day Years Used Date Smoking Tobacco: Former Cigarettes Smokeless Tobacco: Never Sex and Gender Information Value Date Recorded Sex Assigned at Male 07/05/2024 10:59 AM DENTAL INSURANCE COORDINATOR Legal Sex Male 1:57 PM DENTAL INSURANCE COORDINATOR Gender Identity Male 07/05/2024 10:59 AM DENTAL INSURANCE COORDINATOR Sexual Orientation Straight 07/05/2024 10 :59 AM DENTAL INSURANCE COORDINATOR Last Filed Vital Signs Vital Sign Reading Time Taken Comments Blood Pressure 118/76 07/12/2024 10:06 AM DENTAL INSURANCE COORDINATOR Pulse 83 07/12/2024 10:06 AM DENTAL INSURANCE COORDINATOR Temperature - - Respiratory Rate - - Oxygen Saturation 97% 07/12/2024 10:06 AM DENTAL INSURANCE COORDINATOR Inhaled Oxygen Concentration - - Weight 27.8 kg (61 lb 3.2 oz) 07/12/2024 10:06 A M DENTAL INSURANCE COORDINATOR Height 182.9 cm (6') 07/12/2024 10:06 AM DENTAL INSURANCE COORDINATOR Body Mass Index 8.3 07/12/2024 10:06 AM DENTAL INSURANCE COORDINATOR Plan of Treatment Health Maintenance Due Date Last Done Comments DTAP/TDAP/TD VACCINES (1 - Tdap) 01/27/1971 PNEUMOCOCCAL VACCINE 65+ YEARS (1 of 2 - PCV) 01/27/19 71 COLORECTAL SCREENING 01/27/1997 Colorectal Cancer Screening 01/27/1997 [...] OXIMETRY, WITH EXERCISE Routine 07/12/2024 11:57 AM DENTAL INSURANCE COORDINATOR Chronic obstructive pulmonary disease, unspecified COPD type (CMS/HCC) from Last 3 Months Results * PULSE OXIMETRY, WITH EXERCISE (07/12/2024 11:57 AM DENTAL INSURANCE COORDINATOR) 07/12/2024 11:5 7 AM DENTAL INSURANCE COORDINATOR Narrative INTERFACE SYSTEM - 07/12/2024 7:09 PM DENTAL INSURANCE COORDINATOR ? [facility] ? [address] [facility], [place] [address] ? Test Date: ?2024-07-12 Pat Name: ? CHILO JI ? Department: ?Room: ? Gender: ? M ?Youth Program Director: ? : ?1950 ? Requested By: ? Order Number: [id number] ? Reading MD: ?? Melecio Travis ? [...] one stop. Electronically Signed On 07-12-2024 19:09:31 DENTAL INSURANCE COORDINATOR by Melecio Travis Procedure Note Provider, Historical - 07/12/2024 [facility] [address] , [place] [address] Test Date: 2024-07-12 Pat Name: CHILO JI Department: Room: Gender: M Youth Program Director: : 1950 Requested By: Order Number: [id number] Reading MD: Melecio Travis Interpretive Statements DIAGNOSIS:COPD INTERPRETATION: Walk study with oxygen titration was performed. Baseline saturation atrest was 100%. Throughout the walk study, saturation was maintained at or above 97% without the need for supplemental oxygen. Over approximately 6minutes, the patient walked 254 meters. IMPRESSION: No evidence of exertional hypoxemia. Patient walked 254 meters with onestop. Electronically Signed On 07-12-2024 19:09:31 DENTAL INSURANCE COORDINATOR by Melecio Travis Salvador Ansari MD PFT ORDERABLES Final Result INTERFACE SYSTEM Refer to clinic/hospital department from Last 3 Months Insurance MEDICARE PART A AND B [employer]
--- OUTSIDE RECORDS SUMMARY | 2024-09-05 12:52 | XMS_ITS | Referral Summary ---
Author Organization [facility] [place] [address] Address [address] [place] [address] Care Team Providers Care Supervisor [employer] Name Role Phone Liliana May MD Primary Care Provider Moose Singleton MD Unavailable [phone] Allergies Active Allergy Reactions Criticality Noted Date [...] CDT Gender Identity Male 09/04/2024 11:22 AM OPERATIVE SUPERVISOR Sexual Orientation Straight 09/04/2024 11 :22 AM OPERATIVE SUPERVISOR Last Filed Vital Signs Vital Sign Reading [...] on file Medical Devices Implanted Type Area Batter Out Device Identifier Shelf Expiration Date Model / Serial / Lot Stent N/A: Heart Procedures Procedure Name Priority Date/Time Associated Diagnosis Comments CTA ABDOMINAL AORTA AND BILATERAL ILIOFEMORAL RUNOFF Schedule Routine, Read Routine (OP Routine) 10/01/2021 10:38 AM OPERATIVE SUPERVISOR FOM (cancer of floor of mouth) ([facility]/HCC) ([facility]) from Last 3 Months or Most Recently Relevant to Health Maintenance Results * CTA Abdominal Aorta And Bilateral Iliofemoral Runoff (10/01/2021 10:38 AM OPERATIVE SUPERVISOR) Anatomical Region Laterality Modality Body Bilateral Computed Tomogra phy 10/01/2021 11:2 6 AM OPERATIVE SUPERVISOR Impressions 10/01/2021 2:02 PM OPERATIVE SUPERVISOR 1. ??Right lower extremity: There is three-vessel [...] Samson Toro M.D. Narrative 10/01/2021 2:02 PM OPERATIVE SUPERVISOR EXAMINATION: ??CT ANGIOGRAPHY OF THE ABDOMEN, PELVIS, [...] Samson Toro M.D. Moose Cornelio Singleton MD IM CT PROCEDURES Ernestine l Result from Last 3 Months or Most Recently Relevant to Health Maintenance Insurance MEDICARE FOR LIFE MEDICARE FOR LIFE MEDICARE FOR LIFE Advance Directives For more information, please contact: [phone] * Full Code (Latest Code Status on File) Date Activated Date Inactivated Comments 10/16/2021 7:39 PM 10/18/2021 2:11 PM * Full Code Date Activated Date Inactivated Comments 10/09/2021 4:36 PM 10/11/2021 8:52 PM Care Teams Supervisor [employer] Relationship Specialty Start Date End Date Liliana May MD [address] [facility] [address] [place] [address] PCP - General Family Medicine 01/01/21 Moose Singleton MD [address] [facility] [address] [place] [address] Consulting Physician Otolaryngology 09/27/21
== END 2024-09-05 11:32 | disposition home or self-care (01) ==
PROVIDERS: PCP Family Medicine; Visit Provider Student in an Organized Health Care Education/Training Program
DX: R07.9 Chest pain, unspecified (principal); I48.91 Unspecified atrial fibrillation; I50.9 Heart failure, unspecified
CPT/HCPCS: 36415; 80053; 84484; 85025

== ENCOUNTER 2024-10-06 19:40 | Outpatient (CLI) | payer MEDICARE, OTHER, SELFPAY ==
--- OUTSIDE RECORDS SUMMARY | 2024-10-06 19:45 | XMS_ITS | Clinical Summary ---
Author Organization [facility] Address [address] [facility] [place] [address] Phone Care Team Providers Care Travel Money Advisor Name Role Phone Unavailable Primary Care Provider [...] Encounters Date Type Department Care Team Description 10/02/2024 External Device Data STL ABSTRACTION Provider, Abstract 10/02/2024 Telephone [facility] Pulmonology [address] [place] [phone] Jean Ansari MD Information 09/10/2024 12:46 PM BUSINESS SERVICES SPECIALIST SALES - 09/10/2024 11:59 PM [facility] Hospital Encounter [facility] Pulmonary Function Medical [facility] [address] [place] [phone] Jean Ansari MD Discharge Disposition: Home or Self Care 09/06/2024 1:45 PM BUSINESS SERVICES SPECIALIST SALES - 09/06/2024 11:59 PM [facility] Hospital Encounter [facility] CT Scan [address] [place] [phone] Jean Ansari MD Discharge Disposition: Home or Self Care 09/06/2024 Chart Note [facility] Imaging Center [address] [place] [phone] Breanna Serrano ANP dyspnea on exertion 09/04/2024 External Device Data STL ABSTRACTION Provider, Abstract 08/29/2024 External Device Data STL ABSTRACTION Provider, Abstract 08/29/2024 External Device Data STL ABSTRACTION Provider, Abstract 07/12/2024 11:00 AM BUSINESS SERVICES SPECIALIST SALES - 07/12/2024 11:59 PM BUSINESS SERVICES SPECIALIST SALES Hospital Encounter [facility] Pulmonary Function Medical [place] [facility] [address] [place] [phone] Discharge Disposition: Home or Self Care 07/12/2024 10:00 AM BUSINESS SERVICES SPECIALIST SALES Office Visit [facility] Pulmonology [place] [address] [address] [place] [phone] Jean Ansari MD Chronic obstructive pulmonary disease, unspecified COPD type (CMS/HCC) (Primary Dx); Centrilobular emphysema (CMS/HCC); Personal history of tobacco use; Preop pulmonary/respirato ry exam; History of oral cancer from Last 3 Months Social History Tobacco Use Types Packs/Day Years Used Date Smoking Tobacco: Former Cigarettes Smokeless Tobacco: Never Sex and Gender Information Value Date Recorded Sex Assigned at Male 07/05/2024 10:59 AM BUSINESS SERVICES SPECIALIST SALES Legal Sex Male 1:57 PM BUSINESS SERVICES SPECIALIST SALES Gender Identity Male 07/05/2024 10:59 AM BUSINESS SERVICES SPECIALIST SALES Sexual Orientation Straight 07/05/2024 10 :59 AM BUSINESS SERVICES SPECIALIST SALES Last Filed Vital Signs Vital Sign Reading Time Taken Comments Blood Pressure 118/76 07/12/2024 10:06 AM BUSINESS SERVICES SPECIALIST SALES Pulse 83 07/12/2024 10:06 AM BUSINESS SERVICES SPECIALIST SALES Temperature - - Respiratory Rate - - Oxygen Saturation 97% 07/12/2024 10:06 AM BUSINESS SERVICES SPECIALIST SALES Inhaled Oxygen Concentration - - Weight 27.8 kg (61 lb 3.2 oz) 07/12/2024 10:06 A M BUSINESS SERVICES SPECIALIST SALES Height 182.9 cm (6') 07/12/2024 10:06 AM BUSINESS SERVICES SPECIALIST SALES Body Mass Index 8.3 07/12/2024 10:06 AM BUSINESS SERVICES SPECIALIST SALES Plan of Treatment Health Maintenance Due Date Last Done Comments DTAP/TDAP/TD VACCINES (1 - Tdap) 01/27/1971 PNEUMOCOCCAL VACCINE 50+ YEARS (1 of 2 - PCV) 01/27/19 71 Traditional Medicare (ACO) Annual Wellness Visit 01/27 COLORECTAL SCREENING 01/27/1997 Colorectal Cancer Screening 01/27/1997 FIT-DNA Q 3 years 01/27/1997 FIT/FOBT Q 1 year 01/27/1997 Flex Sig/CT Colonography Q 5 years 01/27/1997 ZOSTER VACCINE (1 of 2) 01/27/2002 RSV VACCINE (60+ or ) (1 - Risk 60-74 years 1-dose series) 2012 Abdominal Aortic Aneurysm (AAA) Screening 01/27/2017 INFLUENZA VACCINE (#1) 2024 COVID-19 Vaccine ( season) 04/08/202412/2020 Procedures Procedure Name Priority Date/Time Associated Diagnosis Comments PULMONARY FUNCTION TEST Routine 09/10/2024 1:08 PM BUSINESS SERVICES SPECIALIST SALES Chronic obstructive pulmonary disease, unspecified COPD type (CMS/HCC) CT CHEST HIGH RESOLUTION Stat 09/06/2024 2:57 PM BUSINESS SERVICES SPECIALIST SALES Centrilobular emphysema (CMS/HCC) PULSE OXIMETRY, WITH EXERCISE Routine 07/12/2024 11:57 AM BUSINESS SERVICES SPECIALIST SALES Chronic obstructive pulmonary disease, unspecified COPD type (CMS/HCC) from Last 3 Months Results * PULMONARY FUNCTION TEST (09/10/2024 1:08 PM BUSINESS SERVICES SPECIALIST SALES) 09/10/2024 1:08 PM BUSINESS SERVICES SPECIALIST SALES Narrative INTERFACE SYSTEM - 09/10/2024 4:40 PM BUSINESS SERVICES SPECIALIST SALES [facility] [address] [place] [address] Test Date: 2024-09-10 Pat Name: CHILO JI Department: Room: Gender: Male Mixer Helper: : 1950 Requested By: JEAN Carranza Order Number: [id number] Clyde MD: Melecio Travis Interpretive Statements Technologist's Comments: Difficulty with lung volume testing; however adequate Test. Normal appearing inspiratory flow limb; scooping of expiratory flow limb suggestive of obstruction. IMPRESSION: Severe obstructive ventilatory defect without a significant response seen to an inhaled bronchodilator. Normal total lung volumes with evidence of mild air trapping. Severe diffusion capacity abnormality. Electronically Signed On 09-10-2024 16:40:32 BUSINESS SERVICES SPECIALIST SALES by Melecio Travis Procedure Note Provider, Historical - 09/10/2024 [facility] [address], [place] [address] Test Date: 2024-09-10 Pat Name: CHILO JI Department: Room: Gender: Male Mixer Helper: : 1950 Requested By: JEAN Carranza Order Number: [id number] Reading MD: Melecio Travis Interpretive Statements Technologist's Comments: Difficulty with lung volume testing; however adequate Test. Normal appearing inspiratory flow limb; scooping of expiratory flow limb suggestive of obstruction. IMPRESSION: Severe obstructive ventilatory defect without a significant response seento an inhaled bronchodilator. Normal total lung volumes with evidence of mild air trapping. Severe diffusion capacity abnormality. Electronically Signed On 09-10-2024 16:40:32 BUSINESS SERVICES SPECIALIST SALES by Melecio Travis Jean Ansari MD PFT ORDERABLES Final Result INTERFACE SYSTEM Refer to clinic/hospital department * CT CHEST HIGH RESOLUTION (09/06/2024 2:57 PM BUSINESS SERVICES SPECIALIST SALES) Anatomical Region Laterality Modality Chest Computed Tomogra phy 09/06/2024 3:21 PM BUSINESS SERVICES SPECIALIST SALES Impressions 09/06/2024 3:22 PM BUSINESS SERVICES SPECIALIST SALES IMPRESSION: 1. Advanced destructive apical predominant emphysema with biapical bullous change and basilar displacement of bronchovascular structures. 2. Normal tracheobronchial and fissural anatomy. Fissures appear anatomically complete. 3. Endobronchial secretions/debris in the left mainstem bronchus extending into left lower lobar bronchi with clustered tree-in-bud nodularity suggestive of infectious bronchopneumonia or aspiration. 4. Left lower lobe 6 mm solid noncalcified nodule likely relates to this infectious/inflammatory process but warrants follow-up to evaluate resolution. 5. Lobulated 2.1 cm peribronchial nodule in the right upper lobe with popcorn like calcification suggestive of benign pulmonary hamartoma. DICTATION LOCATION: Location 1 - [facility] Narrative 09/06/2024 3:22 PM BUSINESS SERVICES SPECIALIST SALES EXAMINATION: CT CHEST HIGH RESOLUTION DATE: 09/06/2024 2:57 PM HISTORY: Emphysema Centrilobular emphysema (CMS/HCC) TECHNIQUE: Computed tomography of the chest was performed without contrast according to a high resolution protocol. The examination was performed with the adjustment of mA according to the patient size and/or the use of Iterative Reconstruction Technique. CT Dose Length Product (DLP): 532.14 mGy*cm FINDINGS: No prior study is available for comparison at the time of this dictation. Heart and mediastinum: The heart is normal in size with a trace amount of pericardial fluid. Heavy multivessel coronary calcifications are present. Thoracic aorta is atherosclerotic. Mid ascending aorta measures 4.0 cm. Main pulmonary artery is normal in caliber measuring 2.8 cm. Scattered small mediastinal and hilar lymph nodes are likely reactive. No pathologic lymphadenopathy. Lungs and Airways: Normal tracheobronchial and fissural anatomy. No accessory bronchus or fissure identified. The right minor and bilateral major fissures appear anatomically complete. There is regional volume loss and scarring in the periphery of the apical and posterior right upper lobe lung, and lesser extent the lateral right middle lobe. No bronchiectasis or peripheral bronchiolectasis. Advanced destructive apical predominant centrilobular and paraseptal emphysema with biapical bullous change and basilar displacement of bronchovascular structures. Biapical Layering endobronchial secretions/debris visualized in the left mainstem bronchus and extending into proximal lobar and segmental bronchi of the left lower lobe. Clustered bronchocentric tree-in-bud nodularity in the lateral basal left lower lobe likely relates to infectious bronchopneumonia or aspiration. Indeterminant 6 mm solid noncalcified nodule in the anteromedial/lateral basal left lower lobe. There is a lobulated peribronchial nodule measuring 2.1 cm in the perihilar anterior right upper lobe with popcorn like calcifications suggestive of benign pulmonary hamartoma. There is no evidence of reticulation or groundglass opacities. No architectural distortion or macroscopic honeycombing identified. Mild air trapping is seen on expiratory images. Pleura: No pleural effusion or pneumothorax is seen. Lower neck and soft tissues: The imaged thyroid gland appears normal. No axillary or subpectoral lymphadenopathy is identified. Abdomen: No acute pathology in the imaged portions of the upper abdomen. Bones: No suspicious lytic or blastic lesions are seen. INCIDENTAL FINDINGS: None. Procedure Note Alex Pittman DO - 09/06/2024 EXAMINATION: CT CHEST HIGH RESOLUTION DATE: 09/06/2024 2:57 PM HISTORY: Emphysema Centrilobular emphysema (CMS/HCC) TECHNIQUE: Computed tomography of the chest was performed without contrast according to a high resolution protocol. The examination was performed with the adjustment of mA according to the patient size and/or the use of Iterative Reconstruction Technique. CT Dose Length Product (DLP): 532.14 mGy*cm FINDINGS: No prior study is available for comparison at the time of this dictation. Heart and mediastinum: The heart is normal in size with a trace amount of pericardial fluid. Heavy multivessel coronary calcifications are present. Thoracic aorta is atherosclerotic. Mid ascending aorta measures 4.0 cm. Main pulmonary artery is normal in caliber measuring 2.8 cm. Scattered small mediastinal and hilar lymph nodes are likely reactive. No pathologic lymphadenopathy. Lungs and Airways: Normal tracheobronchial and fissural anatomy. No accessory bronchus or fissure identified. The right minor and bilateral major fissures appear anatomically complete. There is regional volume loss and scarring in the periphery of the apical and posterior right upper lobe lung, and lesser extent the lateral right middle lobe. No bronchiectasis or peripheral bronchiolectasis. Advanced destructive apical predominant centrilobular and paraseptal emphysema with biapical bullous change and basilar displacement of bronchovascular structures. Biapical Layering endobronchial secretions/debris visualized in the left mainstem bronchus and extending into proximal lobar and segmental bronchi of the left lower lobe. Clustered bronchocentric tree-in-bud nodularity in the lateral basal left lower lobe likely relates to infectious bronchopneumonia or aspiration. Indeterminant 6 mm solid noncalcified nodule in the anteromedial/lateral basal left lower lobe. There is a lobulated peribronchial nodule measuring 2.1 cm in the perihilar anterior right upper lobe with popcorn like calcifications suggestive of benign pulmonary hamartoma. There is no evidence of reticulation or groundglass opacities. No architectural distortion or macroscopic honeycombing identified. Mild air trapping is seen on expiratory images. Pleura: No pleural effusion or pneumothorax is seen. Lower neck and soft tissues: The imaged thyroid gland appears normal. No axillary or subpectoral lymphadenopathy is identified. Abdomen: No acute pathology in the imaged portions of the upper abdomen. Bones: No suspicious lytic or blastic lesions are seen. INCIDENTAL FINDINGS: None. IMPRESSION: 1. Advanced destructive apical predominant emphysema with biapical bullous change and basilar displacement of bronchovascular structures. 2. Normal tracheobronchial and fissural anatomy. Fissures appear anatomically complete. 3. Endobronchial secretions/debris in the left mainstem bronchus extending into left lower lobar bronchi with clustered tree-in-bud nodularity suggestive of infectious bronchopneumonia or aspiration. 4. Left lower lobe 6 mm solid noncalcified nodule likely relates to this infectious/inflammatory process but warrants follow-up to evaluate resolution. 5. Lobulated 2.1 cm peribronchial nodule in the right upper lobe with popcorn like calcification suggestive of benign pulmonary hamartoma. DICTATION LOCATION: Location 1 - [facility] us Jean Ansari MD CT ORDERABLES Final Result * PULSE OXIMETRY, WITH EXERCISE (07/12/2024 11:57 AM BUSINESS SERVICES SPECIALIST SALES) 07/12/2024 11:5 7 AM BUSINESS SERVICES SPECIALIST SALES Narrative INTERFACE SYSTEM - 07/12/2024 7:09 PM BUSINESS SERVICES SPECIALIST SALES [place] [id number] Test Date: 2024-07-12 Pat Name: CHILO JI Department: Room: Gender: M Mixer Helper: : 1950 Requested By: Order Number: [id number] Clyde MD: Melecio Travis Interpretive Statements DIAGNOSIS:COPD INTERPRETATION: Walk study with oxygen titration was performed. Baseline saturation at rest was 100%. Throughout the walk study, saturation was maintained at or above 97% without the need for supplemental oxygen. Over approximately 6 minutes, the patient walked 254 meters. IMPRESSION: No evidence of exertional hypoxemia. Patient walked 254 meters with one stop. Electronically Signed On 07-12-2024 19:09:31 BUSINESS SERVICES SPECIALIST SALES by Melecio Travis Procedure Note Provider, Historical - 07/12/[address] [address] Test Date: 2024-07-12 Pat Name: CHILO JI Department: Room: Gender: M Mixer Helper: : 1950 Requested By: Order Number: [id number] Clyde FERGUSON: Melecio Travis Interpretive Statements DIAGNOSIS:COPD INTERPRETATION: Walk study with oxygen titration was performed. Baseline saturation atrest was 100%. Throughout the walk study, saturation was maintained at or above 97% without the need for supplemental oxygen. Over approximately 6minutes, the patient walked 254 meters. IMPRESSION: No evidence of exertional hypoxemia. Patient walked 254 meters with onestop. Electronically Signed On 07-12-2024 19:09:31 BUSINESS SERVICES SPECIALIST SALES by Melecio Travis Jean Ansari MD PFT ORDERABLES Final Result Performing Organization Address City/State/[facility] [[email or web address]] Co de Phone Number INTERFACE SYSTEM Refer to clinic/hospital department from Last 3 Months Insurance MEDICARE PART A AND B [employer]
--- OUTSIDE RECORDS SUMMARY | 2024-10-06 19:45 | XMS_ITS | Clinical Summary ---
Author Organization [facility] Address [address] [place] [address] Care Team Providers Care Electronic Development Technician Name Role Phone Unavailable Primary Care [...]
--- OUTSIDE RECORDS SUMMARY | 2024-10-06 19:45 | XMS_ITS | Referral Summary ---
Author Organization [facility] [address] Address [address] [place] [address] Care Team Providers Care Optics Test Technician Name Role Phone Liliana May MD Primary Care Provider Moose Singleton MD Unavailable [phone] Allergies Active Allergy Reactions Criticality Noted Date [...] (ventral tongue, FOM, and marginal mandibulectomy) Immunizations Immunization Administration Dates Next Due Influenza, Unspecified 05/14/2021 Chuck ([employer]) SARS-CoV-2 Vaccination 11/10/2020 Social History Tobacco Use Types Packs/Day Years Used Date Smoking Tobacco: Former Cigarettes 0.4 57.2 S tarted: 1968 Smokeless Tobacco: Never Tobacco [...] CDT Gender Identity Male 09/04/2024 11:22 AM BORING MILL SET UP OPERATOR VERTICAL Sexual Orientation Straight 09/04/2024 11 :22 AM BORING MILL SET UP OPERATOR VERTICAL Last Filed Vital Signs Vital Sign Reading Time Taken Comments Blood Pressure 120/66 10/18/2021 7:00 AM CDT Pulse 66 10/18/2021 7:00 AM CDT Temperature 36.7 C (98.1 F) 10/18/2021 7:00 AM CDT Respiratory Rate 20 10/18/2021 7:00 AM CDT Oxygen Saturation 96% 10/18/2021 9:00 AM CDT Inhaled Oxygen Concentration - - Weight 75.3 kg (166 lb) 04/02/2024 2:03 PM CDT Height 182.9 cm (6') 04/02/2024 2:03 PM CDT Body Mass Index 22.51 04/02/2024 2:03 PM CDT Plan of Treatment Not on file Medical Devices Implanted Type Area Desk Lieutenant Device Identifier Shelf Expiration Date Model / Serial / Lot Stent N/A: Heart Procedures Procedure Name Priority Date/Time Associated Diagnosis Comments CTA ABDOMINAL AORTA AND BILATERAL ILIOFEMORAL RUNOFF Schedule Routine, Read Routine (OP Routine) 10/01/2021 10:38 AM BORING MILL SET UP OPERATOR VERTICAL 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 Right lower extremity: There is three-vessel [...] Samson Toro M.D. Narrative 10/01/2021 2:02 PM BORING MILL SET UP OPERATOR VERTICAL EXAMINATION: CT ANGIOGRAPHY OF THE ABDOMEN, PELVIS, [...] it. Electronically signed by: Samson Toro M.D. Moosehasmukh Singleton MD IMG CT PROCEDURES Ernestine l Result from Last 3 Months or Most Recently Relevant to Health Maintenance Insurance MEDICARE [employer] MEDICARE FOR [facility] MEDICARE FOR LIFE Advance Directives For more information, please contact: [phone] * Full Code (Latest Code Status on File) Date Activated Date Inactivated Comments 10/16/2021 7:39 PM 10/18/2021 2:11 PM * Full Code Date Activated Date Inactivated Comments 10/09/2021 4:36 PM 10/11/2021 8:52 PM Care Teams Optics Test Technician Relationship Specialty Start Date End Date Liliana May MD [address] [facility] [address] [place] [address] PCP - General Family Medicine 01/01/21 Moose Singleton MD [address] [facility] [address] [place] [address] Consulting Physician Otolaryngology 09/27/21
--- OUTSIDE RECORDS SUMMARY | 2024-10-06 19:45 | XMS_ITS | Clinical Summary ---
Author Organization [facility] [address] Address [address] [place] [address] Care Team Providers Care Dog Obedience Instructor Name Role Phone Liliana May MD Primary Care Provider Moose Singleton MD Unavailable [phone] Allergies Active Allergy Reactions Criticality Noted Date [...] CDT Gender Identity Male 09/04/2024 11:22 AM STONE HAND Sexual Orientation Straight 09/04/2024 11 :22 AM STONE HAND Obstetrics History Last Filed Vital Signs Vital [...] Fall Risk Assessment 10/18/2022 10/18/2021 Covid-19 Vaccine ( - 2023-2 5 season) 2024 07/15/2021, 11/10/2020 Influenza Vaccine (#1) 2024 , 05/14/2021, 05/05/2020, Additional history exists DTaP/Tdap/Td Vaccine (2 - Td or Tdap) 03/02/2026 03/02/2016 Pneumococcal vaccine 65+ Completed 02/28/2018, 12/07 Zoster Vaccine Completed 05/06/2018, 02/28/2018 Abdominal Aortic Aneurysm (A AA) Screen Completed 10/01/2021 Medical Devices Implanted Type Area Family Sociologist Device Identifier Shelf Expiration Date Model / Serial / Lot Stent N/A: Heart Procedures Procedure Name Priority Date/Time Associated Diagnosis Comments CTA ABDOMINAL AORTA AND BILATERAL ILIOFEMORAL RUNOFF Schedule Routine, Read Routine (OP Routine) 10/01/2021 10:38 AM STONE HAND 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 Right lower extremity: There is three-vessel [...] Samson Toro M.D. Narrative 10/01/2021 2:02 PM STONE HAND EXAMINATION: CT ANGIOGRAPHY OF THE ABDOMEN, PELVIS, [...] Recently Relevant to Health Maintenance Insurance MEDICARE [employer] MEDICARE FOR LIFE MEDICARE FOR LIFE Advance Directives For more information, please contact: [phone] * Full Code (Latest Code Status on File) Date Activated Date Inactivated Comments 10/16/2021 7:39 PM 10/18/2021 2:11 PM * Full Code Date Activated Date Inactivated Comments 10/09/2021 4:36 PM 10/11/2021 8:52 PM Care Teams Dog Obedience Instructor Relationship Specialty Start Date End Date Liliana May MD [address] [place] [address] PCP - General Family Medicine 01/01/21 Moose Singleton MD [address] [place] [address] Consulting Physician Otolaryngology 09/27/21
--- OUTSIDE RECORDS SUMMARY | 2024-10-06 19:45 | XMS_ITS ---
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 Past Treatment and Therapy Plans No past plan information found. Lifetime Dose Tracking * Chemical Lifetime Dose Automatic Entry Manual Entr y DLP 3,487 mGycm 3,487 mGycm 0 mGycm
--- NOTE | 2024-10-26 11:59 | P.SLEEP_ITS ---
Sleep Study Date of Study: 10/06/24 Ordering Provider: Mahin Black APRN Interpreting Physician: Stephani Carmona MD Sleep Study Type: Polysomnogram Height: 1.83 m Weight: 72.575 kg Body Mass Index: 21.7 Neck Circumference (inches): 15.5 [place]: 15 Reason for Sleep Study Hypersomnolence Sleep History Chilo Cross is a 74-year-old man with excessive daytime sleepiness. There is a strong family history of obstructive sleep apnea his daughter and grandson. He occasionally awakens from sleep feeling short of breath. He rarely wakes at night with heartburn, belching or coughing.??He says that he does not snore and others do not complain about his snoring. He rarely has trouble sleeping when he has a cold. He rarely wakes up gasping for breath during the night. He occasionally has breathing problems at night. He rarely sweats excessively at night. He occasionally notices his heart pounding or beating irregularly during the night. He frequently falls asleep during the day. He constantly falls asleep involuntarily, rarely falls asleep while driving. He never experiences loss of muscle tone with strong emotion. He occasionally has daytime difficulty at work due to excessive sleepiness. He rarely feels paralyzed on waking or falling asleep. He occasionally experiences vivid dreams upon waking or falling asleep. He never feels afraid of going to sleep. He rarely has nightmares. He rarely recalls his dreams. He constantly has thoughts racing through his mind. He rarely feels sad or depressed. He occasionally feels anxiety. He occasionally notices parts of his body jerk. He rarely kicks during the night. He rarely feels crawling or aching feelings in his legs. He rarely feels leg pain at night. He never has morning jaw pain, never grinds his teeth at night. He occasionally feels bothered by pain during the day, rarely is awakened by pain during the night. He rarely wakes up feeling stiff in the morning, and he rarely wakes feeling sore or achy. He occasionally awakens with pain in his neck, spine, or joints. He has fatigue, frequent morning headaches and although he frequently may awaken feeling refreshed, he is frequently sleepy during the day. Normal bedtime is between 11:00 p.m. and 12 midnight, falling asleep within 30 minutes, waking 3-4 times during the night to go to the bathroom. It is easy for him to return to sleep. His normal wake time is between 6:00 a.m. and 7:00 a.m.. He maintains the same schedule on weekends. He typically gets between 6 and 7 hours of sleep per night. He takes naps in the day, and a short nap lasting 10-15 minutes may be refreshing. Habits:??Tobacco: Former smoker Caffeine: 2 servings a day Alcohol: None Recreational substances: None PMF Past Medical History Medical History Pneumonia Acute upper respiratory infection Thrush of mouth and esophagus Chronic anticoagulation Oral cancer Completely excised, no additional treatment required. Septic shock Gastroesophageal reflux disease Coronary artery disease Chronic obstructive pulmonary disease Former smoker Chronic kidney disease, stage 3 Hypertension Heart failure with reduced ejection fraction Echocardiogram in April 2023 showed reduced LV function with an EF of 40 to 45% and abnormal diastolic function. Community acquired pneumonia, bilateral Chest pain Elevated d-dimer COPD exacerbation Sinusitis Myocardial infarction Evidence of infarct on stress test from September 2018 without reversible ischemia, EF of 37%. Pneumonia Osteoporosis Rectal polyp Dyslipidemia Persistent atrial fibrillation Vitamin D deficiency, unspecified Surgical History Surgical History History of tonsillectomy History of bilateral cataract extraction History of colonoscopy with polypectomy History of vasectomy Family History Family History Mother Patient's mother is Family history of malignant neoplasm Social History Social History Social History: Surrogate medical decision maker: Beulah Cross, spouse. Code status: Full code. Smoking packs per day: 1.5 Smoking cigarettes per day: 30.0 Years smoked: 50 Smoking pack-years: 75.00 Smoking status: Former smoker Tobacco type: cigarettes Second hand tobacco smoke exposure: Yes Smoking end date: 10/09/21 Alcohol intake: never Drinks per week: 0 Alcohol use details: Rare alcohol use in moderation. Substance use: never Substance use type: does not use Do You Feel Safe in your Home?: Yes Lack of Transportation: No Lack of Food: Never True Current Housing: I Have Housing Concerned About Future Housing: No Difficulty Paying Gas/Electric Bills: No Difficulty Paying for Meds: No Currently Unemployed: No Education: High School Diploma/GED Difficulty w/ Childcare or Family Care: No Living arrangements: with family Additional living arrangements comments: Lives with spouse and son in [place]. Occupation/Education: retired Additional occupation/education comments: Retired from the [employer] after 24 years. Worked for [employer] thereafter. Gender identity (if verbalized by the patient): Male Sexual Orientation (if Verbalized by the Patient): Straight or Heterosexual Spiritual care concerns: No Agree to blood products: Yes Medications Home Medications ?Medication ?Instructions ?Recorded ?Confirmed ?Type finasteride 5 mg tablet 5 mg PO DAILY 01/06/24 09/07/24 History fluticasone fur. 100 mcg-umeclid 1 inh inhalation Q24H 02/17/24 09/07/24 History 62.5 mcg-vilant 25 mcg inhalat.powder (Trelegy Ellipta) omeprazole 40 mg capsule,delayed 40 mg PO DAILY #100 caps 03/19/24 09/07/24 Rx release albuterol sulfate 90 mcg/actuation 1 - 2 inh inhalation Q4-6H PRN 06/15/24 09/07/24 Rx aerosol inhaler shortness of breath or wheezing 90 days #25.5 grams pravastatin 20 mg tablet 20 mg PO DAILY 07/14/24 09/07/24 History roflumilast 500 mcg tablet 500 mcg PO DAILY 07/14/24 09/07/24 History (Daliresp) diltiazem HCl 180 mg 180 mg PO DAILY 07/15/24 09/07/24 History capsule,extended release 24 hr loratadine 10 mg tablet 10 mg PO QHS #30 tabs 07/19/24 09/07/24 Rx fluticasone fur. 100 mcg-umeclid 1 inh inhalation DAILY #60 ea 08/14/24 09/07/24 Rx 62.5 mcg-vilant 25 mcg inhalat.powder (Trelegy Ellipta) ipratropium bromide 0.02 % 2.5 ml inhalation Q6H PRN 08/14/24 09/07/24 Rx solution for inhalation shortness of breath or wheezing #75 mL magnesium oxide 400 mg (241.3 mg 400 mg PO DAILY #30 tabs 08/24/24 09/07/24 Rx magnesium) tablet escitalopram oxalate 10 mg tablet 10 mg PO DAILY #30 tabs 09/05/24 09/07/24 Rx metoprolol tartrate 25 mg tablet 25 mg PO BID #60 tabs 09/07/24 09/07/24 Rx apixaban 5 mg tablet (Eliquis) See Rx Instructions .Route 10/10/24 Rx .COMPLEX #180 tabs tamsulosin 0.4 mg capsule 0.4 mg PO BID #60 caps 10/15/24 Rx Sleep Procedure A full night polysomnogram using the [address] multi-channel system recorded the standard physiologic parameters including EEG, EOG, submentalis EMG, anterior tibialis EMG, EKG, body position, nasal and oral airflow using nasal pressure sensor and thermistor. Respiratory parameters of chest and abdominal movements were recorded with Respiratory Inductance Plethysmography belts. Oxygen saturation was recorded by pulse oximetry. Video monitoring was also performed. Sleep stages, periodic limb movements, and EEG arousals were scored in 30 second epochs according to the criteria of the AASM Scoring Manual. The Apnea-Hypopnea Index was calculated using CMS guidelines for definition of hypopnea while scoring respiratory events. The patient self-administered Benadryl at 9:30 p.m.. He did not meet criteria early enough in the night for a split night study so this was conducted as a full night basic nocturnal polysomnogram. Sleep Architecture The total recording time was 491.1 minutes. The total sleep time was 148.5 minutes. Sleep latency was 101.3 minutes. REM latency was - minutes. Sleep efficiency was 30.2%. The patient had 46 awakenings for an awakening index of 18.6. Wake after sleep onset time was 241.0 minutes. The patient spent 68.5 minutes, 46.1% of total sleep time in Stage N1. The patient spent 80.0 minutes, 53.9% in Stage N2. The patient spent no time in Stage N3 sleep or Stage REM sleep. Respiratory Analysis The patient had 10 hypopneas, 1 obstructive apneas, - mixed apneas, and 1 central apneas for an overall Apnea Hypopnea Index of 4.8. The REM Apnea Hypopnea Index was -. The NREM Apnea Hypopnea Index was 4.8. The patient had a Central Apnea Hypopnea Index of 0.4. There were - Respiratory Effort Related Arousals resulting in a RERA index of - events per hour. The Respiratory Disturbance Index is 10.5 events per hour. There was no evidence of Josemanuel- Clay Respirations. Arousals There were 154 total arousals for an arousal index of 62.2. There were 43 spontaneous arousals for an index of 17.4. There were 10 arousals due to respiratory events for an index of 4.0. There were 88 arousals due to periodic limb movements for an index of 35.6. There were 11 arousals due to isolated limb movements for an index of 4.4. Periodic Limb Movements The patient had 26 isolated limb movements with an index of 10.5. The patient had 247 periodic limb movements with an index of 99.8. Patient had a total of 273 limb movements with a total limb movement index of 110.3. Oximetry Data The patient had an average oxygen saturation of 90.9% in sleep with a minimum oxygen saturation of 88.0% and a maximum oxygen saturation of 97.0%. The patient had 13 oxygen desaturations that were 4% or greater resulting in an Oxygen Desaturation Index of 5.3. The patient spent 1.5 minutes, 0.3% of total sleep time with an oxygen saturation below 88%. Snoring Profile Snoring was moderately loud. Cardiac Profile The patient had an average pulse rate of 66.4 bpm with a minimum pulse of rate of 48 bpm and a maximum pulse rate of 87 bpm. No arrhythmias noted. EEG Profile Unremarkable, no evidence of seizures. Assessment and Plan Assessment and Plan (1) Hypersomnolence: Code(s): G47.10 - Hypersomnia, unspecified Status: Acute Assessment and Plan: This basic nocturnal polysomnogram on 10/06/2024 was technically adequate however not a membership sales representative study as the patient had a sleep efficiency which was very low, 30.2%. He was awake for 70% of the night. His sleep latency, 101.3 minutes, was extremely long. He had no stage 3 sleep and no REM. His overall apnea-hypopnea index was 4.8 which is close to the cutoff of 5 events per hour, however it does not meet criteria to start CPAP titration. He had frequent awakenings, sleep was fragmented any flipped from side to side often. If the patient is interested in PAP therapy for his hypersomnolence, I would recommend a sleep aid to use with a home sleep test, and tell him that he should not press the button to start the test until he is ready to fall asleep. He did not have an effective sleep aid to use at the start of this in-lab sleep study, and since he states that he naps in the day, it is likely that he napped too late in the day, causing him to have a long sleep latency. If he has an AHI greater than 5, he will be a candidate for a CPAP titration in the sleep lab. He needs to be instructed regarding sleep hygiene measures, particularly not napping on the day of testing, having at least 12 hours of wakefulness before presenting for the test and having adequate sleep aid available to use in this lab for his CPAP titration. He has several medical comorbidities including hypertension, atrial fibrillation, low ejection fraction 40-45% on an echo 04/25/2023. This is the most recent one in the system. (2) PLMD (periodic limb movement disorder): Code(s): G47.61 - Periodic limb movement disorder Status: Acute Assessment and Plan: The patient had an elevated periodic limb movement index, 98.8 per hour and had elevated periodic limb movement arousal index of 35.6 per hour, normal is < 15 per hour. In his sleep questionnaire he did not have complaints of frequent kicking or frequent uncomfortable feelings in his legs but his legs are definitely impairing his ability to maintain continuous sleep. Ferritin level is indicated to exclude iron deficiency anemia as a contributing factor. Ferritin should be 75 ng/mL or greater. If ferritin is below this, iron supplementation should be given to achieve ferritin of 75 ng/mL. There are nonpharmacologic methods to treat limb movements including daily exercise, stretching calf muscles before bed, avoiding excessive amounts of caffeine and alcohol, vitamin B supplementation, magnesium lotion massaged into legs before bed, and use of a weighted blanket. Pharmacologic therapy is very effective for restless legs syndrome and limb movements during sleep and may include [id number] voltage-gated calcium channel ligands such as gabapentin which is preferable to dopaminergic agents which can have augmentation. Other treatments can include opioids and benzodiazepines. Data The data obtained during this sleep study is adequate for interpretation. Certification This sleep study has been reviewed by a board certified sleep medicine physician.
[2024-10-26 13:34] VITALS: BMI 21.7
== END 2024-10-07 06:42 | disposition home or self-care (01) ==
LOC: CHSCSM 19:43
PROVIDERS: PCP Nurse Practitioner Family; Visit Provider Nurse Practitioner Family
DX: G47.30 Sleep apnea, unspecified (principal); G47.10 Hypersomnia, unspecified; G47.61 Periodic limb movement disorder
CPT/HCPCS: 95810

== ENCOUNTER 2024-11-14 08:05 | Outpatient (CLI) | payer MEDICARE, OTHER, SELFPAY ==
--- OUTSIDE RECORDS SUMMARY | 2024-11-14 08:15 | XMS_ITS | Encounter Summary ---
Author Organization [employer] Address [address] [place] [address] Care Team Providers Care Vp Hr Diversity Name Role Phone Unavailable Primary Care Provider Unavailabl e Encounter Details Date Type Department Care Team (Late st Contact Info) Description 11/13/2024 External Device Data ST[place] ABSTRACTION Provider, Abstract NO ADDRESS ON FILE Social History Tobacco Use Types Packs/Day Years Used Date Smoking Tobacco: Former Cigarettes Smokeless Tobacco: Never Sex and Gender Information Value Date Recorded Sex Assigned at Male 07/05/2024 10:59 AM REGIONAL EDUCATION MANAGER Legal Sex Male 1:57 PM REGIONAL EDUCATION MANAGER Gender Identity Male 07/05/2024 10:59 AM REGIONAL EDUCATION MANAGER Sexual Orientation Straight 07/05/2024 10 :59 AM REGIONAL EDUCATION MANAGER documented as of this encounter Plan of Treatment Not on file documented as of this encounter Visit Diagnoses Not on filedocumented in this encounter
--- OUTSIDE RECORDS SUMMARY | 2024-11-14 08:15 | XMS_ITS | Clinical Summary ---
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 HL (hearing loss) GERD (gastroesophageal reflux disease) Cancer (HCC) Family History Medical History Relation Name Comments Cancer Mother Della Aponte Anesthesia problems Neg Hx Relation Name Status Comments Mother Della Aponte Social History Tobacco Use Types Packs/Day Years Used Date Smoking Tobacco: Former Cigarettes 0.4 57.3 S tarted: 1968 Smokeless Tobacco: Never Tobacco [...] CDT Gender Identity Male 09/04/2024 11:22 AM COFFEE MAKER Sexual Orientation Straight 09/04/2024 11 :22 AM COFFEE MAKER Obstetrics History Last Filed Vital Signs Vital [...] Fall Risk Assessment 10/18/2022 10/18/2021 Covid-19 Vaccine (3 - 2023- 5 season) 2024 07/15/2021, 11/10/2020 Influenza Vaccine (#1) 2024 , 05/14/2021, 05/05/2020, Additional history exists DTaP/Tdap/Td Vaccine (2 - Td or Tdap) 03/02/2026 03/02/2016 Pneumococcal vaccine 65+ Completed 02/28/2018, 12/07 Zoster Vaccine Completed 05/06/2018, 02/28/2018 Abdominal Aortic Aneurysm (A AA) Screen Completed 10/01/2021 Medical Devices Implanted Type Area Ball Holder Device Identifier Shelf Expiration Date Model / Serial / Lot Stent N/A: Heart Procedures Procedure Name Priority Date/Time Associated Diagnosis Comments CTA ABDOMINAL AORTA AND BILATERAL ILIOFEMORAL RUNOFF Schedule Routine, Read Routine (OP Routine) 10/01/2021 10:38 AM COFFEE MAKER FOM (cancer of floor of mouth) ([facility]) from Last 3 Months or Most Recently Relevant to Health Maintenance Results * CTA Abdominal Aorta And Bilateral Iliofemoral Runoff (10/01/2021 10:38 AM COFFEE MAKER) Anatomical Region Laterality Modality Body Bilateral Computed Tomogra phy 10/01/2021 11:2 6 AM COFFEE MAKER Impressions 10/01/2021 2:02 PM COFFEE MAKER 1. Right lower extremity: There is three-vessel [...] Samson Toro M.D. Narrative 10/01/2021 2:02 PM COFFEE MAKER EXAMINATION: CT ANGIOGRAPHY OF THE ABDOMEN, PELVIS, [...] Recently Relevant to Health Maintenance Insurance MEDICARE [place] [employer] Member Subscriber Plan / Payer ( fective 2021-Present) Name:Chilo Cross Relation to Subscriber:Self Name:Chilo Cross Payer ID:[id number] (NAIC) Group ID:Not on file Type:[employer] Address: [address] [place] [address] MEDICARE FOR LIFE MEDICARE FOR LIFE Advance Directives For more information, please contact: [phone] * Full Code (Latest Code Status on File) Date Activated Date Inactivated Comments 10/16/2021 7:39 PM 10/18/2021 2:11 PM * Full Code Date Activated Date Inactivated Comments 10/09/2021 4:36 PM 10/11/2021 8:52 PM Care Teams Yarn Dry Room Worker Relationship Specialty Start Date End Date Liliana May MD [address] [place] [address] PCP - General Family Medicine 01/01/21 Moose Singleton MD [address] [place] [address] Consulting Physician Otolaryngology 09/27/21
--- OUTSIDE RECORDS SUMMARY | 2024-11-14 08:15 | XMS_ITS | Clinical Summary ---
Author Organization [facility] Address [address] [place] [address] Care Team Providers Care Plate Driller Name Role Phone Unavailable Primary Care Provider [...] Vaccine ( - 2023-2 5 season) 2024 RSV Immunization or 60+ Years (1 [...]
--- OUTSIDE RECORDS SUMMARY | 2024-11-14 08:15 | XMS_ITS | Referral Summary ---
Author Organization [facility] [address] Address [address] [place] [address] Care Team Providers Care Ecd Name Role Phone Liliana May MD Primary Care Provider Moose Singleton MD Unavailable [phone] Allergies Active Allergy Reactions Criticality Noted Date [...] CDT Gender Identity Male 09/04/2024 11:22 AM SUPERVISOR PUMPING STATION Sexual Orientation Straight 09/04/2024 11 :22 AM SUPERVISOR PUMPING STATION Last Filed Vital Signs Vital Sign Reading [...] on file Medical Devices Implanted Type Area Ecology Teacher Device Identifier Shelf Expiration Date Model / Serial / Lot Stent N/A: Heart Procedures Procedure Name Priority Date/Time Associated Diagnosis Comments CTA ABDOMINAL AORTA AND BILATERAL ILIOFEMORAL RUNOFF Schedule Routine, Read Routine (OP Routine) 10/01/2021 10:38 AM SUPERVISOR PUMPING STATION FOM (cancer of floor of mouth) ([facility]) from Last 3 Months or Most Recently Relevant to Health Maintenance Results * CTA Abdominal Aorta And Bilateral Iliofemoral Runoff (10/01/2021 10:38 AM SUPERVISOR PUMPING STATION) Anatomical Region Laterality Modality Body Bilateral Computed Tomogra phy 10/01/2021 11:2 6 AM SUPERVISOR PUMPING STATION Impressions 10/01/2021 2:02 PM SUPERVISOR PUMPING STATION 1. Right lower extremity: There is three-vessel [...] Samson Toro M.D. Narrative 10/01/2021 2:02 PM SUPERVISOR PUMPING STATION EXAMINATION: CT ANGIOGRAPHY OF THE ABDOMEN, PELVIS, [...] Recently Relevant to Health Maintenance Insurance MEDICARE [employer] MEDICARE [facility] MEDICARE FOR LIFE Advance Directives For more information, please contact: [phone] * Full Code (Latest Code Status on File) Date Activated Date Inactivated Comments 10/16/2021 7:39 PM 10/18/2021 2:11 PM * Full Code Date Activated Date Inactivated Comments 10/09/2021 4:36 PM 10/11/2021 8:52 PM Care Teams Ecd Relationship Specialty Start Date End Date Liliana May MD [address] [facility] [address] [place] [address] PCP - General Family Medicine 01/01/21 Moose Singleton MD [address] [facility] [address] [place] [address] Consulting Physician Otolaryngology 09/27/21
--- OUTSIDE RECORDS SUMMARY | 2024-11-14 08:15 | XMS_ITS | Clinical Summary ---
Author Organization [facility] Address [address] [facility] [place] [address] Phone Care Team Providers Care Fitness Director Name Role Phone Unavailable Primary Care Provider [...] Encounters Date Type Department Care Team Description 11/13/2024 External Device Data STL ABSTRACTION Provider, Abstract 10/24/2024 External Device Data STL ABSTRACTION Provider, Abstract 10/15/2024 External Device Data STL ABSTRACTION Provider, Abstract 10/02/2024 External Device Data STL ABSTRACTION Provider, Abstract 10/02/2024 Telephone [facility] Pulmonology [address] [place] [id number] Jean Ansari MD Information 09/10/2024 12:46 PM LAWN MOWER OPERATOR - 09/10/2024 11:59 PM [facility] Hospital Encounter [facility] Pulmonary Function Medical [address] [place] [address] Jean Ansari MD Discharge Disposition: Home or Self Care 09/06/2024 1:45 PM LAWN MOWER OPERATOR - 09/06/2024 11:59 PM [facility] Hospital Encounter [facility] CT Scan [address] [place] [phone] Jean Ansari MD Discharge Disposition: Home or Self Care 09/06/2024 Chart Note [facility] [place] [address] [place] [phone] Breanna Serrano ANP dyspnea on exertion 09/04/2024 External Device Data STL ABSTRACTION Provider, Abstract 08/29/2024 External Device Data STL ABSTRACTION Provider, Abstract 08/29/2024 External Device Data STL ABSTRACTION Provider, Abstract from Last 3 Months Social History Tobacco Use Types Packs/Day Years Used Date Smoking Tobacco: Former Cigarettes Smokeless Tobacco: Never Sex and Gender Information Value Date Recorded Sex Assigned at Male 07/05/2024 10:59 AM LAWN MOWER OPERATOR Legal Sex Male 1:57 PM LAWN MOWER OPERATOR Gender Identity Male 07/05/2024 10:59 AM LAWN MOWER OPERATOR Sexual Orientation Straight 07/05/2024 10 :59 AM LAWN MOWER OPERATOR Last Filed Vital Signs Vital Sign Reading Time Taken Comments Blood Pressure 118/76 07/12/2024 10:06 AM LAWN MOWER OPERATOR Pulse 83 07/12/2024 10:06 AM LAWN MOWER OPERATOR Temperature - - Respiratory Rate - - Oxygen Saturation 97% 07/12/2024 10:06 AM LAWN MOWER OPERATOR Inhaled Oxygen Concentration - - Weight 27.8 kg (61 lb 3.2 oz) 07/12/2024 10:06 A M LAWN MOWER OPERATOR Height 182.9 cm (6') 07/12/2024 10:06 AM LAWN MOWER OPERATOR Body Mass Index 8.3 07/12/2024 10:06 AM LAWN MOWER OPERATOR Plan of Treatment Health Maintenance Due Date Last Done Comments DTAP/TDAP/TD VACCINES (1 - Tdap) 01/27/1971 PNEUMOCOCCAL VACCINE 50+ YEARS (1 of 2 - PCV) 01/27/19 71 Traditional Medicare (O) Annual Wellness Visit 01/27 COLORECTAL SCREENING 01/27/1997 [...] PULMONARY FUNCTION TEST Routine 09/10/2024 1:08 PM LAWN MOWER OPERATOR Chronic obstructive pulmonary disease, unspecified COPD type (CMS/HCC) CT CHEST HIGH RESOLUTION Stat 09/06/2024 2:57 PM LAWN MOWER OPERATOR Centrilobular emphysema (CMS/HCC) from Last 3 Months Results * PULMONARY FUNCTION TEST (09/10/2024 1:08 PM LAWN MOWER OPERATOR) 09/10/2024 1:08 PM LAWN MOWER OPERATOR Narrative INTERFACE SYSTEM - 09/10/2024 4:40 PM LAWN MOWER OPERATOR [facility] [address] [place] [address] Test Date: 2024-09-10 Pat Name: CHILO JI Department: Room: Gender: Male Field Sales Manager: : 1950 Requested By: JEAN Carranza Order Number: [id number] Reading MD: Melecio Travis Interpretive Statements Technologist's Comments: Difficulty with lung volume testing; however adequate Test. Normal appearing inspiratory flow limb; scooping of expiratory flow limb suggestive of obstruction. IMPRESSION: Severe obstructive ventilatory defect without a significant response seen to an inhaled bronchodilator. Normal total lung volumes with evidence of mild air trapping. Severe diffusion capacity abnormality. Electronically Signed On 09-10-2024 16:40:32 LAWN MOWER OPERATOR by Melecio Travis Procedure Note Provider, Historical - 09/10/2024 [facility] [address] [place] [address] Test Date: 2024-09-10 Pat Name: CHILO ABDIARTZ Department: Room: Gender: Male Field Sales Manager: : 1950 Requested By: EJAN Carranza Order Number: [id number] Reading : Melecio Travis Interpretive Statements Technologist's Comments: Difficulty with lung volume testing; however adequate Test. Normal appearing inspiratory flow limb; scooping of expiratory flow limb suggestive of obstruction. IMPRESSION: Severe obstructive ventilatory defect without a significant response seento an inhaled bronchodilator. Normal total lung volumes with evidence of mild air trapping. Severe diffusion capacity abnormality. Electronically Signed On 09-10-2024 16:40:32 LAWN MOWER OPERATOR by Melecio Travis Jean Ansari MD PFT ORDERABLES Final Result INTERFACE SYSTEM Refer to clinic/hospital department * CT CHEST HIGH RESOLUTION (09/06/2024 2:57 PM LAWN MOWER OPERATOR) Anatomical Region Laterality Modality Chest Computed Tomogra phy 09/06/2024 3:21 PM LAWN MOWER OPERATOR Impressions 09/06/2024 3:22 PM LAWN MOWER OPERATOR IMPRESSION: 1. Advanced destructive apical predominant emphysema [...] pulmonary hamartoma. DICTATION LOCATION: Location 1 - [facility] 09/06/2024 3:22 PM LAWN MOWER OPERATOR EXAMINATION: CT CHEST HIGH RESOLUTION DATE: 09/06/2024 [...] pulmonary hamartoma. DICTATION LOCATION: Location 1 - [facility] Jean Ansari MD CT ORDERABLES Final Result from Last 3 Months Insurance MEDICARE PART A AND B FOR LIFE
--- OUTSIDE RECORDS SUMMARY | 2024-11-14 08:15 | XMS_ITS ---
Author Organization [facility] [address] Address [address] [place] [address] Care Team Providers Care Thermal Cutter Hand Name Role Phone Liliana May MD Primary Care Provider Moose Singleton MD Unavailable [phone] Active Problems Problem Noted Date Diagnosed Date [...]
--- NOTE | 2024-11-19 15:13 | P.SLEEP_ITS ---
Sleep Study - Home Unattended Date of Study: 11/14/24 Ordering Provider: Mahin Black APRN Interpreting Provider: Tasia Palmer, DO Home Sleep Study Type: Watch PAT Height: 1.83 m Weight: 72.575 kg Body Mass Index: 21.7 Neck Circumference (inches): 16.25 [place]: 13 Reason for Sleep Study Daytime hypersomnia Sleep History Chilo Cross is a 74-year-old man with excessive daytime sleepiness. There is a strong family history of obstructive sleep apnea his daughter and grandson. He occasionally awakens from sleep feeling short of breath. He rarely wakes at night with heartburn, belching or coughing.??He says that he does not snore and others do not complain about his snoring. He rarely has trouble sleeping when he has a cold. He rarely wakes up gasping for breath during the night. He occasionally has breathing problems at night. He rarely sweats excessively at night. He occasionally notices his heart pounding or beating irregularly during the night. He frequently falls asleep during the day. He constantly falls asleep involuntarily, rarely falls asleep while driving. He never experiences loss of muscle tone with strong emotion. He occasionally has daytime difficulty at work due to excessive sleepiness. He rarely feels paralyzed on waking or falling asleep. He occasionally experiences vivid dreams upon waking or falling asleep. He never feels afraid of going to sleep. He rarely has nightmares. He rarely recalls his dreams. He constantly has thoughts racing through his mind. He rarely feels sad or depressed. He occasionally feels anxiety. He occasionally notices parts of his body jerk. He rarely kicks during the night. He rarely feels crawling or aching feelings in his legs. He rarely feels leg pain at night . He never has morning jaw pain, never grinds his teeth at night. He occasionally feels bothered by pain during the day, rarely is awakened by pain during the night. He rarely wakes up feeling stiff in the morning, and he rarely wakes feeling sore or achy. He occasionally awakens with pain in his neck, spine, or joints. He has fatigue, frequent morning headaches and although he frequently may awaken feeling refreshed, he is frequently sleepy during the day. Normal bedtime is between 11:00 p.m. and 12 midnight, falling asleep within 30 minutes, waking 3-4 times during the night to go to the bathroom. It is easy for him to return to sleep. His normal wake time is between 6:00 a.m. and 7:00 a.m.. He maintains the same schedule on weekends. He typically gets between 6 and 7 hours of sleep per night. He takes naps in the day, and a short nap lasting 10-15 minutes may be refreshing. Habits:??Tobacco: Former smoker Caffeine: 2 servings a day Alcohol: None Recreational substances: None PMF Past Medical History Medical History Pneumonia Acute upper respiratory infection Thrush of mouth and esophagus Chronic anticoagulation Oral cancer Completely excised, no additional treatment required. Septic shock Gastroesophageal reflux disease Coronary artery disease Chronic obstructive pulmonary disease Former smoker Chronic kidney disease, stage 3 Hypertension Heart failure with reduced ejection fraction Echocardiogram in April 2023 showed reduced LV function with an EF of 40 to 45% and abnormal diastolic function. Community acquired pneumonia, bilateral Chest pain Elevated d-dimer COPD exacerbation Sinusitis Myocardial infarction Evidence of infarct on stress test from September 2018 without reversible ischemia, EF of 37%. Pneumonia Osteoporosis Rectal polyp Dyslipidemia Persistent atrial fibrillation Vitamin D deficiency, unspecified Surgical History Surgical History History of tonsillectomy History of bilateral cataract extraction History of colonoscopy with polypectomy History of vasectomy Family History Family History Mother Patient's mother is Family history of malignant neoplasm Social History Social History Social History: Surrogate medical decision maker: Beulah Cross, spouse. Code status: Full code. Smoking packs per day: 1.5 Smoking cigarettes per day: 30.0 Years smoked: 50 Smoking pack-years: 75.00 Smoking status: Former smoker Tobacco type: cigarettes Second hand tobacco smoke exposure: Yes Smoking end date: 10/09/21 Alcohol intake: never Drinks per week: 0 Alcohol use details: Rare alcohol use in moderation. Substance use: never Substance use type: does not use Do You Feel Safe in your Home?: Yes Lack of Transportation: No Lack of Food: Never True Current Housing: I Have Housing Concerned About Future Housing: No Difficulty Paying Gas/Electric Bills: No Difficulty Paying for Meds: No Currently Unemployed: No Education: High School Diploma/GED Difficulty w/ Childcare or Family Care: No Living arrangements: with family Additional living arrangements comments: Lives with spouse and son in [place]. Occupation/Education: retired Additional occupation/education comments: Retired from [employer] after 24 years. Worked for [employer] thereafter. Gender identity (if verbalized by the patient): Male Sexual Orientation (if Verbalized by the Patient): Straight or Heterosexual Spiritual care concerns: No Agree to blood products: Yes Medications Home Medications ?Medication ?Instructions ?Recorded ?Confirmed ?Type finasteride 5 mg tablet 5 mg PO DAILY 01/06/24 11/16/24 History omeprazole 40 mg capsule,delayed 40 mg PO DAILY #100 caps 03/19/24 11/16/24 Rx release albuterol sulfate 90 mcg/actuation 1 - 2 inh inhalation Q4-6H PRN 06/15/24 11/16/24 Rx aerosol inhaler shortness of breath or wheezing 90 days #25.5 grams pravastatin 20 mg tablet 20 mg PO DAILY 07/14/24 11/16/24 History loratadine 10 mg tablet 10 mg PO QHS #30 tabs 07/19/24 11/16/24 Rx ipratropium bromide 0.02 % 2.5 ml inhalation Q6H PRN 08/14/24 11/16/24 Rx solution for inhalation shortness of breath or wheezing #75 mL magnesium oxide 400 mg (241.3 mg 400 mg PO DAILY #30 tabs 08/24/24 11/16/24 Rx magnesium) tablet metoprolol tartrate 25 mg tablet 25 mg PO BID #60 tabs 09/07/24 11/16/24 Rx apixaban 5 mg tablet (Eliquis) See Rx Instructions .Route 10/10/24 11/16/24 Rx .COMPLEX #180 tabs diltiazem HCl 180 mg See Rx Instructions .Route 10/29/24 11/16/24 Rx capsule,extended release 24 hr .COMPLEX #90 caps escitalopram oxalate 10 mg tablet See Rx Instructions .Route 10/30/24 11/16/24 Rx .COMPLEX #90 tabs roflumilast 500 mcg tablet 500 mcg PO DAILY #90 tabs 10/30/24 11/16/24 Rx (Daliresp) fluticasone fur. 100 mcg-umeclid 1 inh inhalation DAILY #60 ea 11/13/24 11/16/24 Rx 62.5 mcg-vilant 25 mcg inhalat.powder (Trelegy Ellipta) tamsulosin 0.4 mg capsule 0.4 mg PO BID #60 caps 11/13/24 11/16/24 Rx Sleep Procedure The sleep study was completed using [employer] a technically adequate device with seven channels: peripheral arterial tone, actigraphy, body position, snore, respiratory movement, pulse oximetry, sleep staging, and heart rate. Prior to using the device, the patient received verbal and written instructions for its application and was provided with the help desk phone number for additional telephonic instruction with 24-hour availability of qualified personnel to answer questions. The study was scored using CMS guidelines. Sleep Architecture The total recording time is 8 hrs, 5 min. The total sleep time is 2 hrs, 8 min. Sleep latency is 18 minutes. REM latency is minutes. The patient had 45 episodes of waking. Sleep architecture shows % deep sleep, % light sleep, and (as % Total Sleep Time) showed NREM (Light %; Deep %), and a % stage REM. The patient spent 14.4% of total sleep time in the supine position. Sleep efficiency was 26.39. Respiratory Analysis The overall AHI (pAHI 4%:) is 46.9. The overall AHI (pAHI 3%:) is 72.4. The central AHI is 17.4. The AHI was N/A in NREM and N/A in REM sleep. The AHI was 107.7 in Supine and 67.9 in Non-supine sleep. Percent of Josemanuel Clay respirations is 0.0. Oximetry Data The oxygen desaturation index (BARTOLO 4%:) is 34.7. The mean saturation is 94%, and the lowest saturation is 83%. Time spent with saturation < 88% is 0.1 minutes. Snoring Profile Snoring average intensity is 42 dB. The patient snored above 45 decibels for 12.8 minutes, 10.0% of sleep time. Cardiac Profile The average pulse rate is 65 beats per minutes. The lowest pulse rate is 43 bpm. The highest pulse rate reported is 94 bpm. Suspected Afib total duration is 1:54:56, (h:m:sec). The longest Afibevent duration is 0:14:52. Premature beats occur 4.1 per minute. Assessment and Plan Assessment and Plan (1) ZEYAD (obstructive sleep apnea): Code(s): G47.33 - Obstructive sleep apnea (adult) (pediatric) Status: Acute Assessment and Plan: The patient had an overall AHI of 46.9 with desaturation down to 83%. This is consistent with severe sleep apnea. The patient a central apnea index of 17.4, which is elevated (normal < 5). Due to the severity of the patient's sleep apnea as well as the elevated central apnea index, the patient is not a candidate for AutoPAP. I recommend that the patient have a CPAP titration study with the use of a hypnotic to ensure we obtain enough sleep data find an optimal pressure setting. Data The data obtained during this sleep study is adequate for interpretation. Certification This sleep study has been reviewed by a board certified sleep medicine physician.
[2024-11-19 15:17] VITALS: BMI 21.7
== END 2024-11-15 10:59 | disposition home or self-care (01) ==
LOC: ANHCSM 08:06
PROVIDERS: PCP Nurse Practitioner Family; Visit Provider Nurse Practitioner Family
DX: G47.30 Sleep apnea, unspecified (principal); G47.33 Obstructive sleep apnea (adult) (pediatric)
CPT/HCPCS: 95800

== ENCOUNTER 2024-11-20 14:14 | Emergency (ER) | payer MEDICARE, OTHER, SELFPAY ==
[2024-11-20] VITALS (17 sets, daily range): BP systolic 114–145; BP diastolic 56–97; PULSE 65–110; RESP 19–38; TEMP 36.6; O2SAT 98–100
--- NOTE | ~2024-11-20 | XR_ITS ---
Portable chest x-ray Comparison: 08/21/2024 Clinical History: Shortness of breath Findings: Lung apices are excluded from the [id number]-uk-[id number]. Stable calcified right upper lobe pulmona ry nodules. Probable COPD. Cardiomediastinal silhouette is stable. Bones and soft tissues are unrema rkable. Impression: COPD and stable calcified right upper lobe pulmonary nodules. Lung apices are excluded from the [id number]. Reviewed, dictated and finalized at location . Impression: COPD and stable calcified right upper lobe pulmonary nodules. Lung apices are excluded from the [id number].
--- NOTE | 2024-11-20 14:16 | ECG_ITS ---
Test Date: 2024-11-20 14:32:47 Measurements Intervals [place] Rate: 90 P: 0 MN: 0 QRS: 81 QRSD: 75 T: 56 QT: 321 QTc: 394 Interpretive Statements ATRIAL FIBRILLATION NONSPECIFIC T-WAVE ABNORMALITY- HIGH LATERAL LEADS BASELINE ARTIFACT- I, II, III, AVR, AVL, AVF, V1-V6 ABNORMAL ECG Compared to ECG 08/21/2024 14:14:46 HEART RATE HAS DECREASED Electronically Signed On 11-20-2024 14:54:30 CDT by Ulices Gao D.O.
[2024-11-20] MEDS: LORazepam (*CRX) 1 MG TABLET PO (14:23)
--- NOTE | 2024-11-20 14:24 | PC.NURSE ---
Covid culture sent to lab
[2024-11-20 14:28] LABS: Hematocrit 42.8 % (37.0-46.0); Hemoglobin 13.1 g/dL (12.4-15.3); Mean Corpuscular HGB Conc 30.6 g/dL (32-36); Mean Corpuscular Hemoglobin 26.1 pg (27.0-31.0); Mean Corpuscular Volume 85.3 fL (78.0-102.0); Mean Platelet Volume 9.5 fl (8.7-11.0); Platelet Count Result 278 K/mm3 (150-420); Red Blood Count 5.02 M/mm3 (4.70-6.10); Red Cell Distribution Width 15.6 % (11.6-14.4)
[2024-11-20 14:32] LABS: White Blood Count 21.9 K/mm3 (4.8-10.8)
[2024-11-20 14:39] LABS: Band Neutrophils Percent 0 % (0-6); Lymphocytes Absolute Manual 1.97 K/mm3 (1.1-4.5); Lymphocytes Percent Manual 9 % (18-44); Monocytes Absolute Manual 1.31 K/mm3 (0.1-0.90); Monocytes Percent Manual 6 % (3-9); Neutrophils Absolute Manual 18.61 K/mm3 (1.3-6.7); Neutrophils Percent Manual 85 % (46-73); Platelet Estimate Adequate (Adequate); Schistocytes None Seen; Total Cells Counted 100
[2024-11-20 14:41] LABS: D Dimer 0.25 mg/L (0.19-0.50)
[2024-11-20 14:52] LABS: Alanine Aminotransferase 16 U/L (16-63); Albumin Level 3.6 g/dL (3.4-5.0); Alkaline Phosphatase 126 U/L (46-116); Anion Gap 10 mmol/L (4-12); Aspartate Amino Transferase 12 U/L (15-37); Bilirubin,Total 0.7 mg/dL (0.00-1.00); Blood Urea Nitrogen 16 mg/dL (7-18); Calcium 9.8 mg/dL (8.5-10.1); Carbon Dioxide 29 mmol/L (21-32); Chloride 102 mmol/L (98-108); Estimated CRCL calculation 44 ml/min; Estimated Glomerular Filt Rate 53; Glucose 113 mg/dL (70-99); Magnesium 1.6 mg/dL (1.8-2.4); NT Pro B Type Natriuretic Pept 2268 pg/mL (0-125); Osmolality Calculated 294 mOsm/kg (285-295); Potassium 4.4 mmol/L (3.5-5.1); Sodium 141 mmol/L (136-145); Total Protein 7.3 g/dL (6.4-8.2)
[2024-11-20] MEDS: FUROSEMIDE INJ 40 MG/4 ML VIAL IV PUSH ×2 (15:15→16:49)
--- OUTSIDE RECORDS SUMMARY | 2024-11-20 15:22 | XMS_ITS | Clinical Summary ---
Author Organization [facility] Address [address] [facility] [place] [address] Phone Care Team Providers Care Packaging Mechanic Name Role Phone Unavailable Primary Care [...] STL ABSTRACTION Provider, Abstract 10/02/2024 Telephone [facility] Pulmonology [address] [place] [phone] Jean Ansari MD Information 09/10/2024 12:46 PM INTERNATIONAL CONTROLLER - 09/10/2024 11:59 PM [facility] Hospital Encounter [facility] Pulmonary Function Medical [address] [place] [address] Jean Ansari MD Discharge Disposition: Home or Self Care 09/06/2024 1:45 PM INTERNATIONAL CONTROLLER - 09/06/2024 11:59 PM [facility] Hospital Encounter [facility] CT Scan [address] [place] [phone] Jean Ansari MD Discharge Disposition: Home or Self Care 09/06/2024 Chart Note [facility] [place] [address] [place] [phone] Breanna Serrano ANP dyspnea on exertion 09/04/2024 [...] Sex Assigned at Male 07/05/2024 10:59 AM INTERNATIONAL CONTROLLER Legal Sex Male 1:57 PM INTERNATIONAL CONTROLLER Gender Identity Male 07/05/2024 10:59 AM INTERNATIONAL CONTROLLER Sexual Orientation Straight 07/05/2024 10 :59 AM INTERNATIONAL CONTROLLER Last Filed Vital Signs Vital Sign Reading Time Taken Comments Blood Pressure 118/76 07/12/2024 10:06 AM INTERNATIONAL CONTROLLER Pulse 83 07/12/2024 10:06 AM INTERNATIONAL CONTROLLER Temperature - - Respiratory Rate - - Oxygen Saturation 97% 07/12/2024 10:06 AM INTERNATIONAL CONTROLLER Inhaled Oxygen Concentration - - Weight 27.8 kg (61 lb 3.2 oz) 07/12/2024 10:06 A M INTERNATIONAL CONTROLLER Height 182.9 cm (6') 07/12/2024 10:06 AM INTERNATIONAL CONTROLLER Body Mass Index 8.3 07/12/2024 10:06 AM INTERNATIONAL CONTROLLER Plan of Treatment Health Maintenance Due Date [...] PULMONARY FUNCTION TEST Routine 09/10/2024 1:08 PM INTERNATIONAL CONTROLLER Chronic obstructive pulmonary disease, unspecified COPD type (CMS/HCC) CT CHEST HIGH RESOLUTION Stat 09/06/2024 2:57 PM INTERNATIONAL CONTROLLER Centrilobular emphysema (CMS/HCC) from Last 3 Months Results * PULMONARY FUNCTION TEST (09/10/2024 1:08 PM INTERNATIONAL CONTROLLER) 09/10/2024 1:08 PM INTERNATIONAL CONTROLLER Narrative INTERFACE SYSTEM - 09/10/2024 4:40 PM INTERNATIONAL CONTROLLER [facility] [address] [place] [address] Test Date: 2024-09-10 Pat Name: CHILO JI Department: Room: Gender: Male Gang Punch Operator: : 1950 Requested By: JEAN Carranza Order Number: [id number] Reading MD: Melecio Travis Interpretive Statements Technologist's Comments: Difficulty with lung volume testing; however adequate Test. Normal appearing inspiratory flow limb; scooping of expiratory flow limb suggestive of obstruction. IMPRESSION: Severe obstructive ventilatory defect without a significant response seen to an inhaled bronchodilator. Normal total lung volumes with evidence of mild air trapping. Severe diffusion capacity abnormality. Electronically Signed On 09-10-2024 16:40:32 INTERNATIONAL CONTROLLER by Melecio Travis Procedure Note Provider, Historical - 09/10/2024 [facility] [address] [place] [address] Test Date: 2024-09-10 Pat Name: CHILO ABDIARTZ Department: Room: Gender: Male Gang Punch Operator: : 1950 Requested By: JEAN Carranza Order Number: [id number] Reading : Melecio Travis Interpretive Statements Technologist's Comments: Difficulty with lung volume testing; however adequate Test. Normal appearing inspiratory flow limb; scooping of expiratory flow limb suggestive of obstruction. IMPRESSION: Severe obstructive ventilatory defect without a significant response seento an inhaled bronchodilator. Normal total lung volumes with evidence of mild air trapping. Severe diffusion capacity abnormality. Electronically Signed On 09-10-2024 16:40:32 INTERNATIONAL CONTROLLER by Melecio Travis Jean Ansari MD PFT ORDERABLES Final Result INTERFACE SYSTEM Refer to clinic/hospital department * CT CHEST HIGH RESOLUTION (09/06/2024 2:57 PM INTERNATIONAL CONTROLLER) Anatomical Region Laterality Modality Chest Computed Tomogra phy 09/06/2024 3:21 PM INTERNATIONAL CONTROLLER Impressions 09/06/2024 3:22 PM INTERNATIONAL CONTROLLER IMPRESSION: 1. Advanced destructive apical predominant emphysema [...] pulmonary hamartoma. DICTATION LOCATION: Location 1 - [facility] 09/06/2024 3:22 PM INTERNATIONAL CONTROLLER EXAMINATION: CT CHEST HIGH RESOLUTION DATE: 09/06/2024 [...] pulmonary hamartoma. DICTATION LOCATION: Location 1 - [facility] Jean Ansari MD CT ORDERABLES Final Result from Last 3 Months Insurance MEDICARE PART A AND B FOR LIFE
--- OUTSIDE RECORDS SUMMARY | 2024-11-20 15:22 | XMS_ITS | Referral Summary ---
Author Organization [facility] [address] Address [address] [place] [address] Care Team Providers Care Shale Miner Blasting Name Role Phone Liliana May MD Primary Care Provider Moose Singleton MD Unavailable [phone] Allergies Active Allergy Reactions Criticality Noted Date [...] CDT Gender Identity Male 09/04/2024 11:22 AM CLAIMS ACCOUNT SPECIALIST Sexual Orientation Straight 09/04/2024 11 :22 AM CLAIMS ACCOUNT SPECIALIST Last Filed Vital Signs Vital Sign Reading [...] on file Medical Devices Implanted Type Area Consolidation Accountant Device Identifier Shelf Expiration Date Model / Serial / Lot Stent N/A: Heart Procedures Procedure Name Priority Date/Time Associated Diagnosis Comments CTA ABDOMINAL AORTA AND BILATERAL ILIOFEMORAL RUNOFF Schedule Routine, Read Routine (OP Routine) 10/01/2021 10:38 AM CLAIMS ACCOUNT SPECIALIST FOM (cancer of floor of mouth) ([facility]) from Last 3 Months or Most Recently Relevant to Health Maintenance Results * CTA Abdominal Aorta And Bilateral Iliofemoral Runoff (10/01/2021 10:38 AM CLAIMS ACCOUNT SPECIALIST) Anatomical Region Laterality Modality Body Bilateral Computed Tomogra phy 10/01/2021 11:2 6 AM CLAIMS ACCOUNT SPECIALIST Impressions 10/01/2021 2:02 PM CLAIMS ACCOUNT SPECIALIST 1. Right lower extremity: There is three-vessel [...] Samson Toro M.D. Narrative 10/01/2021 2:02 PM CLAIMS ACCOUNT SPECIALIST EXAMINATION: CT ANGIOGRAPHY OF THE ABDOMEN, PELVIS, [...] Recently Relevant to Health Maintenance Insurance MEDICARE [employer] MEDICARE [facility] MEDICARE FOR LIFE Advance Directives For more information, please contact: [phone] * Full Code (Latest Code Status on File) Date Activated Date Inactivated Comments 10/16/2021 7:39 PM 10/18/2021 2:11 PM * Full Code Date Activated Date Inactivated Comments 10/09/2021 4:36 PM 10/11/2021 8:52 PM Care Teams Shale Miner Blasting Relationship Specialty Start Date End Date Liliana May MD [address] [facility] [address] [place] [address] PCP - General Family Medicine 01/01/21 Moose Singleton MD [address] [facility] [address] [place] [address] Consulting Physician Otolaryngology 09/27/21
--- OUTSIDE RECORDS SUMMARY | 2024-11-20 15:22 | XMS_ITS | Clinical Summary ---
Author Organization [facility] Address [address] [place] [id number] Care Team Providers Care Baccarat Manager Name Role Phone Unavailable Primary Care [...] Vaccines (1 of 2) 01/27/2002 Pneumococcal Vaccine: 50+ Ye ars (1 of 1 - PCV) [...]
--- OUTSIDE RECORDS SUMMARY | 2024-11-20 15:22 | XMS_ITS | Clinical Summary ---
Author Organization [facility] [address] Address [address] [place] [address] Care Team Providers Care Entertainment Lawyer Name Role Phone Liliana May MD Primary Care Provider Moose Singleton MD Unavailable [phone] Allergies Active Allergy Reactions Criticality Noted Date [...] CDT Gender Identity Male 09/04/2024 11:22 AM SPRING MANUFACTURING SET UP TECHNICIAN Sexual Orientation Straight 09/04/2024 11 :22 AM SPRING MANUFACTURING SET UP TECHNICIAN Obstetrics History Last Filed Vital Signs Vital [...] Completed 10/01/2021 Medical Devices Implanted Type Area Hardener Helper Device Identifier Shelf Expiration Date Model / Serial / Lot Stent N/A: Heart Procedures Procedure Name Priority Date/Time Associated Diagnosis Comments CTA ABDOMINAL AORTA AND BILATERAL ILIOFEMORAL RUNOFF Schedule Routine, Read Routine (OP Routine) 10/01/2021 10:38 AM SPRING MANUFACTURING SET UP TECHNICIAN FOM (cancer of floor of mouth) ([facility]) from Last 3 Months or Most Recently Relevant to Health Maintenance Results * CTA Abdominal Aorta And Bilateral Iliofemoral Runoff (10/01/2021 10:38 AM SPRING MANUFACTURING SET UP TECHNICIAN) Anatomical Region Laterality Modality Body Bilateral Computed Tomogra phy 10/01/2021 11:2 6 AM SPRING MANUFACTURING SET UP TECHNICIAN Impressions 10/01/2021 2:02 PM SPRING MANUFACTURING SET UP TECHNICIAN 1. Right lower extremity: There is three-vessel [...] Samson Toro M.D. Narrative 10/01/2021 2:02 PM SPRING MANUFACTURING SET UP TECHNICIAN EXAMINATION: CT ANGIOGRAPHY OF THE ABDOMEN, PELVIS, [...] Recently Relevant to Health Maintenance [place] [address] [employer] MEDICARE FOR LIFE MEDICARE FOR LIFE Advance Directives For more information, please contact: [phone] * Full Code (Latest Code Status on File) Date Activated Date Inactivated Comments 10/16/2021 7:39 PM 10/18/2021 2:11 PM * Full Code Date Activated Date Inactivated Comments 10/09/2021 4:36 PM 10/11/2021 8:52 PM Care Teams Entertainment Lawyer Relationship Specialty Start Date End Date Liliana May MD [address] [place] [address] PCP - General Family Medicine 01/01/21 Moose Singleton MD [address] [place] [address] Consulting Physician Otolaryngology 09/27/21
--- OUTSIDE RECORDS SUMMARY | 2024-11-20 15:22 | XMS_ITS ---
Author Organization [facility] [address] Address [address] [place] [address] Care Team Providers Care Manager Business Continuity Name Role Phone Liliana May MD Primary Care Provider Moose Singleton MD Unavailable [phone] Active Problems Problem Noted Date Diagnosed Date [...]
--- NOTE | 2024-11-20 15:48 | PC.NURSE ---
covid culture sent to lab
[2024-11-20 15:52] LABS: Influenza A QL RT-PCR Negative (Negative); Influenza B QL RT-PCR Negative (Negative); RSV RNA, RT-PCR Negative (Negative); SARS-CoV-2 RNA PCR Negative (Negative)
--- NOTE | 2024-11-20 15:52 | PC.NURSE ---
PT REPORTS HE IS BREATHING BETTER AND NO LONGER HAS RIB PAIN WITH INSPIRATION. PT IS CALM AND IS AT BEDSIDE. VSS PER MONITOR. PT IS AWAITING RESULTS AT THIS TIME. WILL CONTINUE TO MONITOR.
[2024-11-20 15:55] LABS: Add Urine Microscopic? NO; Appearance Urine Clear (Clear); Bilirubin Urine Negative (Negative); Blood Urine Negative (Negative); Color Urine Light Yellow (Yellow); Glucose Urine UA Negative (Negative); Ketones Urine Negative (Negative); Leukocyte Esterase Ur Negative LEU/UL (Negative); Nitrate Urine Negative (Negative); Protein Urine Negative (Negative); Specific Grav Ur 1.015 (1.010-1.020); Urobilinogen Urine 0.2 mg/dL (0.2-1.0); pH Urine 5.5 (5.0-8.0)
--- OUTSIDE RECORDS SUMMARY | 2024-11-20 16:02 | XMS_ITS | Clinical Summary ---
Author Organization [facility] Address [address] [facility] [place] [address] Phone Care Team Providers Care Coconut Boiler Name Role Phone Unavailable Primary Care Provider [...] Data STL ABSTRACTION Provider, Abstract 10/02/2024 Telephone [facility] Pulmonology [address] [place] [id number] Jean Ansari MD Information 09/10/2024 12:46 PM STAVE MACHINE TENDER - 09/10/2024 11:59 PM [facility] Hospital Encounter [facility] Pulmonary Function Medical [address] [place] [address] Jean Ansari MD Discharge Disposition: Home or Self Care 09/06/2024 1:45 PM STAVE MACHINE TENDER - 09/06/2024 11:59 PM [facility] Hospital Encounter [facility] CT Scan [address] [place] [id number] Jean Ansari MD Discharge Disposition: Home or Self Care 09/06/2024 Chart Note [facility] [place] [address] [place] [phone] Breanna Serrano ANP dyspnea on exertion 09/04/2024 [...] Sex Assigned at Male 07/05/2024 10:59 AM STAVE MACHINE TENDER Legal Sex Male 1:57 PM STAVE MACHINE TENDER Gender Identity Male 07/05/2024 10:59 AM STAVE MACHINE TENDER Sexual Orientation Straight 07/05/2024 10 :59 AM STAVE MACHINE TENDER Last Filed Vital Signs Vital Sign Reading Time Taken Comments Blood Pressure 118/76 07/12/2024 10:06 AM STAVE MACHINE TENDER Pulse 83 07/12/2024 10:06 AM STAVE MACHINE TENDER Temperature - - Respiratory Rate - - Oxygen Saturation 97% 07/12/2024 10:06 AM STAVE MACHINE TENDER Inhaled Oxygen Concentration - - Weight 27.8 kg (61 lb 3.2 oz) 07/12/2024 10:06 A M STAVE MACHINE TENDER Height 182.9 cm (6') 07/12/2024 10:06 AM STAVE MACHINE TENDER Body Mass Index 8.3 07/12/2024 10:06 AM STAVE MACHINE TENDER Plan of Treatment Health Maintenance Due Date [...] PULMONARY FUNCTION TEST Routine 09/10/2024 1:08 PM STAVE MACHINE TENDER Chronic obstructive pulmonary disease, unspecified COPD type (CMS/HCC) CT CHEST HIGH RESOLUTION Stat 09/06/2024 2:57 PM STAVE MACHINE TENDER Centrilobular emphysema (CMS/HCC) from Last 3 Months Results * PULMONARY FUNCTION TEST (09/10/2024 1:08 PM STAVE MACHINE TENDER) 09/10/2024 1:08 PM STAVE MACHINE TENDER Narrative INTERFACE SYSTEM - 09/10/2024 4:40 PM STAVE MACHINE TENDER [facility] [address] [place] [address] Test Date: 2024-09-10 Pat Name: CHILO JI Department: Room: Gender: Male Frit Burner: : 1950 Requested By: JEAN Carranza Order Number: [id number] Reading MD: Melecio Travis Interpretive Statements Technologist's Comments: Difficulty with lung volume testing; however adequate Test. Normal appearing inspiratory flow limb; scooping of expiratory flow limb suggestive of obstruction. IMPRESSION: Severe obstructive ventilatory defect without a significant response seen to an inhaled bronchodilator. Normal total lung volumes with evidence of mild air trapping. Severe diffusion capacity abnormality. Electronically Signed On 09-10-2024 16:40:32 STAVE MACHINE TENDER by Melecio Travis Procedure Note Provider, Historical - 09/10/2024 [facility] [address] [place] [address] Test Date: 2024-09-10 Pat Name: CHILO ABDIARTZ Department: Room: Gender: Male Frit Burner: : 1950 Requested By: JEAN Carranza Order Number: [id number] Reading : Melecio Travis Interpretive Statements Technologist's Comments: Difficulty with lung volume testing; however adequate Test. Normal appearing inspiratory flow limb; scooping of expiratory flow limb suggestive of obstruction. IMPRESSION: Severe obstructive ventilatory defect without a significant response seento an inhaled bronchodilator. Normal total lung volumes with evidence of mild air trapping. Severe diffusion capacity abnormality. Electronically Signed On 09-10-2024 16:40:32 STAVE MACHINE TENDER by Melecio Traivs Jean Ansari MD PFT ORDERABLES Final Result INTERFACE SYSTEM Refer to clinic/hospital department * CT CHEST HIGH RESOLUTION (09/06/2024 2:57 PM STAVE MACHINE TENDER) Anatomical Region Laterality Modality Chest Computed Tomogra phy 09/06/2024 3:21 PM STAVE MACHINE TENDER Impressions 09/06/2024 3:22 PM STAVE MACHINE TENDER IMPRESSION: 1. Advanced destructive apical predominant emphysema [...] pulmonary hamartoma. DICTATION LOCATION: Location 1 - [facility] 09/06/2024 3:22 PM STAVE MACHINE TENDER EXAMINATION: CT CHEST HIGH RESOLUTION DATE: 09/06/2024 [...] pulmonary hamartoma. DICTATION LOCATION: Location 1 - [facility] Jean Ansari MD CT ORDERABLES Final Result from Last 3 Months Insurance MEDICARE PART A AND B FOR LIFE
--- OUTSIDE RECORDS SUMMARY | 2024-11-20 16:02 | XMS_ITS | Clinical Summary ---
Author Organization [facility] Address [address] [place] [address] Care Team Providers Care Real Estate Instructor Name Role Phone Unavailable Primary Care [...]
--- OUTSIDE RECORDS SUMMARY | 2024-11-20 16:02 | XMS_ITS | Referral Summary ---
Author Organization [facility] [address] Address [address] [place] [address] Care Team Providers Care Glazing Department Supervisor Name Role Phone Liliana May MD Primary Care Provider Moose Singleton MD Unavailable [phone] Allergies Active Allergy Reactions Criticality Noted Date [...] CDT Gender Identity Male 09/04/2024 11:22 AM FACTORY PROCESS WORKERS Sexual Orientation Straight 09/04/2024 11 :22 AM FACTORY PROCESS WORKERS Last Filed Vital Signs Vital Sign Reading [...] on file Medical Devices Implanted Type Area Hydrant Setter Device Identifier Shelf Expiration Date Model / Serial / Lot Stent N/A: Heart Procedures Procedure Name Priority Date/Time Associated Diagnosis Comments CTA ABDOMINAL AORTA AND BILATERAL ILIOFEMORAL RUNOFF Schedule Routine, Read Routine (OP Routine) 10/01/2021 10:38 AM FACTORY PROCESS WORKERS 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 Right lower extremity: There is three-vessel [...] Samson Toro M.D. Narrative 10/01/2021 2:02 PM FACTORY PROCESS WORKERS EXAMINATION: CT ANGIOGRAPHY OF THE ABDOMEN, PELVIS, [...] Recently Relevant to Health Maintenance Insurance MEDICARE [employer] MEDICARE [facility] MEDICARE FOR LIFE Advance Directives For more information, please contact: [phone] * Full Code (Latest Code Status on File) Date Activated Date Inactivated Comments 10/16/2021 7:39 PM 10/18/2021 2:11 PM * Full Code Date Activated Date Inactivated Comments 10/09/2021 4:36 PM 10/11/2021 8:52 PM Care Teams Glazing Department Supervisor Relationship Specialty Start Date End Date Liliana May MD [address] [facility] [address] [place] [address] PCP - General Family Medicine 01/01/21 Moose Singleton MD [address] [facility] [address] [place] [address] Consulting Physician Otolaryngology 09/27/21
--- OUTSIDE RECORDS SUMMARY | 2024-11-20 16:02 | XMS_ITS | Clinical Summary ---
Author Organization [facility] [address] Address [address] [place] [address] Care Team Providers Care School Based Therapist Name Role Phone Liliana May MD Primary Care Provider Moose Singleton MD Unavailable [phone] Allergies Active Allergy Reactions Criticality Noted Date [...] CDT Gender Identity Male 09/04/2024 11:22 AM SELF RISING FLOUR MIXER Sexual Orientation Straight 09/04/2024 11 :22 AM SELF RISING FLOUR MIXER Obstetrics History Last Filed Vital Signs Vital [...] Fall Risk Assessment 10/18/2022 10/18/2021 Covid-19 Vaccine (2023-09 5 season) 2024 07/15/2021, 11/10/2020 Influenza Vaccine (Season Ended) 2025 07/15/2021, 05/14/2021, 05/05/2020, Additional history exists DTaP/Tdap/Td Vaccine (2 - Td or Tdap) 03/02/2026 03/02/2016 Pneumococcal vaccine 65+ Completed 02/28/2018, 12/07 Zoster Vaccine Completed 05/06/2018, 02/28/2018 Abdominal Aortic Aneurysm (A AA) Screen Completed 10/01/2021 Medical Devices Implanted Type Area Commonwealth Attorney Device Identifier Shelf Expiration Date Model / Serial / Lot Stent N/A: Heart Procedures Procedure Name Priority Date/Time Associated Diagnosis Comments CTA ABDOMINAL AORTA AND BILATERAL ILIOFEMORAL RUNOFF Schedule Routine, Read Routine (OP Routine) 10/01/2021 10:38 AM SELF RISING FLOUR MIXER FOM (cancer of floor of mouth) ([facility]) from Last 3 Months or Most Recently Relevant to Health Maintenance Results * CTA Abdominal Aorta And Bilateral Iliofemoral Runoff (10/01/2021 10:38 AM SELF RISING FLOUR MIXER) Anatomical Region Laterality Modality Body Bilateral Computed Tomogra phy 10/01/2021 11:2 6 AM SELF RISING FLOUR MIXER Impressions 10/01/2021 2:02 PM SELF RISING FLOUR MIXER 1. Right lower extremity: There is three-vessel [...] Samson Toro M.D. Narrative 10/01/2021 2:02 PM SELF RISING FLOUR MIXER EXAMINATION: CT ANGIOGRAPHY OF THE ABDOMEN, PELVIS, [...] Recently Relevant to Health Maintenance Insurance [facility]ICARE [facility] Address: [facility] [address] [place] [address] [employer] MEDICARE FOR LIFE MEDICARE FOR LIFE Advance Directives For more information, please contact: [phone] * Full Code (Latest Code Status on File) Date Activated Date Inactivated Comments 10/16/2021 7:39 PM 10/18/2021 2:11 PM * Full Code Date Activated Date Inactivated Comments 10/09/2021 4:36 PM 10/11/2021 8:52 PM Care Teams School Based Therapist Relationship Specialty Start Date End Date Liliana May MD [address] [place] [address] PCP - General Family Medicine 01/01/21 Moose Singleton MD [address] [place] [address] Consulting Physician Otolaryngology 09/27/21
--- OUTSIDE RECORDS SUMMARY | 2024-11-20 16:02 | XMS_ITS ---
Author Organization [facility] [address] Address [address] [place] [address] Care Team Providers Care Bottled Beverage Inspector Name Role Phone Liliana May MD Primary Care Provider Mosoe Singleton MD Unavailable [phone] Active Problems Problem Noted Date Diagnosed Date [...]
--- NOTE | 2024-11-20 17:37 | ED_ITS ---
HPI - SOB/Dyspnea General Chief Complaint: Shortness of Breath/Dyspnea Stated Complaint: sob Time Seen by Provider: 11/20/24 14:15 Source: patient Mode of arrival: ambulatory Limitations: no limitations History of Present Illness HPI Narrative: patient is a 74-year-old male with a significant past medical history that presents today for shortness of breath. Patient has history severe COPD and says that today he started having increased shortness of breath that he use his rescue inhaler multiple times and has nebulizer and did not help. He had a call and has an AMS to command they gave him 125 Solu-Medrol and a DuoNeb treatment on the way here. By time he got here he was 100% on room air. He was still very tachypneic however. He also has a history of congestive heart failure as well. He said has been a few years since his last echocardiogram. MD elicited complaint: shortness of breath Pertinent past history: COPD and congestive heart failure Onset (ago): hour(s) Context: occurred during exertion Severity: moderate Exacerbating factors: nothing Relieving factors: oxygen Known history of: COPD and congestive heart failure Associated symptoms: wheezing Treatment prior to arrival: bronchodilator Related Data Home oxygen amount: none Home Medications ?Medication ?Instructions ?Recorded ?Confirmed ?Last Taken ?Type finasteride 5 mg tablet 5 mg PO DAILY 01/06/24 11/16/24 08/21/24 History pravastatin 20 mg tablet 20 mg PO DAILY 07/14/24 11/16/24 Unknown History Allergies Allergy/AdvReac Type Severity Reaction Status Date / Time lisinopril Allergy Unknown Cough Verified 11/20/24 14:20 Sulfa (Sulfonamide Allergy Cough Verified 11/20/24 14:20 Antibiotics) Review of Systems 2 Review of Systems: All systems reviewed & are unremarkable except as noted in HPI and below Constitutional: Constitutional: Reports as per HPI and Reports no additional constitutional complaints Eyes: Eyes: Reports no additional eye complaints ENT: Reports system reviewed and no additional complaints, except as documented Cardiovascular: Cardiovascular: Reports as per HPI Respiratory: Respiratory: Reports as per HPI, Reports dyspnea and Reports wheezing Gastrointestinal: Gastrointestinal: Reports no additional gastrointestinal complaints Genitourinary: Genitourinary: Reports no additional male genitourinary complaints Musculoskeletal: Musculoskeletal: Reports no additional musculoskeletal complaints Integumentary/Breasts: Skin/Breast: Reports system reviewed and no additional complaints, except as docu Neurologic: Reports system reviewed and no additional complaints, except as documented Psychiatric: Psychiatric: Reports no additional psychiatric complaints Endocrine: Endocrine: Reports no additional endocrine complaints Hematologic/Lymphatic: Hematologic/Lymphatic: Reports no additional hematologic/lymphatic complaints Allergic/Immunologic: Allergic/Immunologic: Reports no additional allergic/immunologic complaints [facility] Past Medical History Medical History Pneumonia Acute upper respiratory infection Thrush of mouth and esophagus Chronic anticoagulation Oral cancer Completely excised, no additional treatment required. Septic shock Gastroesophageal reflux disease Coronary artery disease Chronic obstructive pulmonary disease Former smoker Chronic kidney disease, stage 3 Hypertension Heart failure with reduced ejection fraction Echocardiogram in April 2023 showed reduced LV function with an EF of 40 to 45% and abnormal diastolic function. Community acquired pneumonia, bilateral Chest pain Elevated d-dimer COPD exacerbation Sinusitis Myocardial infarction Evidence of infarct on stress test from September 2018 without reversible ischemia, EF of 37%. Pneumonia Osteoporosis Rectal polyp Dyslipidemia Persistent atrial fibrillation Vitamin D deficiency, unspecified Surgical History Surgical History History of tonsillectomy History of bilateral cataract extraction History of colonoscopy with polypectomy History of vasectomy Family History Family History Mother Patient's mother is Family history of malignant neoplasm Social History Social History Social History: Surrogate medical decision maker: Beulah Cross, spouse. Code status: Full code. Smoking packs per day: 1.5 Smoking cigarettes per day: 30.0 Years smoked: 50 Smoking pack-years: 75.00 Smoking status: Former smoker Tobacco type: cigarettes Second hand tobacco smoke exposure: Yes Smoking end date: 10/09/21 Alcohol intake: never Drinks per week: 0 Alcohol use details: Rare alcohol use in moderation. Substance use: never Substance use type: does not use Do You Feel Safe in your Home?: Yes Lack of Transportation: No Lack of Food: Never True Current Housing: I Have Housing Concerned About Future Housing: No Difficulty Paying Gas/Electric Bills: No Difficulty Paying for Meds: No Currently Unemployed: No Education: High School Diploma/GED Difficulty w/ Childcare or Family Care: No Living arrangements: with family Additional living arrangements comments: Lives with spouse and son in [place]. Occupation/Education: retired Additional occupation/education comments: Retired from the [employer] after 24 years. Worked for [email or web address] thereafter. Gender identity (if verbalized by the patient): Male Sexual Orientation (if Verbalized by the Patient): Straight or Heterosexual Spiritual care concerns: No Agree to blood products: Yes Exam 2 Const: General: healthy appearing Nutritional Appearance: well nourished Orientation/consciousness: patient oriented x3 HENMT: Head: normal to inspection Ears: external ears normal F debbie/Nose/Sinus: Normal external nose present Face and sinus: normal facial exam Mouth: Yes Normal oral and palatal mucosa present Eyes: Conjunctivae: conjunctivae normal Pupils: Equal, round and reactive pupils present EOM: EOMs intact bilaterally Neck: Neck: normal visual inspection Chest: Chest palpation & inspection: normal inspection of the chest Resp: Effort & Inspection: normal respiratory effort Auscultation: clear to auscultation bilaterally Cardio: Rate: regular rate Rhythm: regular rhythm GI: GI Palp: Yes Soft to palpation Back/Spine/Pelvis: Back: no CVA tenderness Skin: General skin exam: normal color Rashes: no rashes Wounds: no wounds Neuro: General: patient oriented x3 Cranial nerves: Yes Nystagmus not present Speech: normal speech Extrem: General: normal to inspection Psych: Mental Status: mental status grossly normal Affect: normal affect Attitude: cooperative Course Vital Signs Vital signs: Vital Signs Pulse Oximetry 100 11/20/24 14:14 Oxygen Delivery Room Air 11/20/24 14:14 Temperature 97.9 F 11/20/24 14:17 Pulse Rate 86 11/20/24 15:45 Respiratory Rate 27 H 11/20/24 15:45 Blood Pressure 145/70 H 11/20/24 15:45 Pulse Oximetry 100 11/20/24 15:45 Oxygen Delivery Room Air 11/20/24 14:17 MDM - SOB/Dyspnea MDM Narrative Medical decision making narrative: Patient December 06 came in was very tachypneic and short of breath but oxygen level is good and end up being 100% on room air. Is little anxious for being very tachycardic. Get his own for the anxiety and here today he had 125 Solu- Medrol and DuoNebs given the EMS. Chest x-ray just showed his COPD lung no pneumonia he did have an elevated white count 22 I think this was just reactive from the COPD exacerbation because there was no source of infection no UTI no pneumonia no upper respiratory infection. All sent home on steroids and continue using albuterol Differential Diagnosis Differential diagnosis: Likely acute exacerbation of chronic obstructive airways disease Medical Records Attestation: I reviewed the patient's medical records. Lab Data Attestation: I reviewed the patient's lab results. 11/20/24 14:23 11/20/24 14:23 Labs: Lab Results 11/20/24 11/20/24 11/20/24 Range/Units 14:15 14:23 15:38 WBC 21.9 H* (4.8-10.8) K/mm3 RBC 5.02 (4.70-6.10) M/mm3 Hgb 13.1 (12.4-15.3) g/dL Hct 42.8 (37.0-46.0) % MCV 85.3 (78.0-102.0) fL MCH 26.1 L (27.0-31.0) pg MCHC 30.6 L (32-36) g/dL RDW 15.6 H (11.6-14.4) % Plt Count 278 (150-420) K/mm3 MPV 9.5 (8.7-11.0) fl Immature Gran % (Auto) Not Reportable Neut % (Auto) Not Reportable Lymph % (Auto) Not Reportable [place] % (Auto) Not Reportable Eos % (Auto) Not Reportable Baso % (Auto) Not Reportable Lymph # (Auto) Not Reportable [place] # (Auto) Not Reportable Eos # (Auto) Not Reportable Baso # (Auto) Not Reportable Abs Immat Gran (auto) Not Reportable Absolute Neuts (auto) Not Reportable Absolute Nucleated RBC Not Reportable Total Counted 100 Neutrophils % (Manual) 85 H (46-73) % Band Neutrophils % 0 (0-6) % Lymphocytes % (Manual) 9 L (18-44) % Monocytes % (Manual) 6 (3-9) % Nucleated RBC % Not Reportable Abs Neuts (Manual) 18.61 H (1.3-6.7) K/mm3 Abs Lymphs (Manual) 1.97 (1.1-4.5) K/mm3 Abs Monocytes (Manual) 1.31 H (0.1-0.90) K/mm3 Platelet Estimate Adequate (Adequate) Schistocytes None seen D-Dimer 0.25 (0.19-0.50) mg/L Sodium 141 (136-145) mmol/L Potassium 4.4 (3.5-5.1) mmol/L Chloride 102 (98-108) mmol/L Carbon Dioxide 29 (21-32) mmol/L Anion Gap 10 (4-12) mmol/L BUN 16 (7-18) mg/dL Creatinine 1.33 H (0.70-1.30) mg/dL Estim Creat Clear Calc 44 ml/min Estimated GFR 53 L (59 - ) Glucose 113 H (70-99) mg/dL Calculated Osmolality 294 (285-295) mOsm/kg Calcium 9.8 (8.5-10.1) mg/dL Magnesium 1.6 L (1.8-2.4) mg/dL Total Bilirubin 0.7 (0.00-1.00) mg/dL AST 12 L (15-37) U/L ALT 16 (16-63) U/L Alkaline Phosphatase 126 H (46-116) U/L NT-Pro-B Natriuret Pep 2268 H (0-125) pg/mL Total Protein 7.3 (6.4-8.2) g/dL Albumin 3.6 (3.4-5.0) g/dL Urine Color Light yellow (Yellow) Urine Appearance Clear (Clear) Urine pH 5.5 (5.0-8.0) Ur Specific [place] 1.015 (1.010-1.020) Urine Protein Negative (Negative) Urine Glucose (UA) Negative (Negative) Urine Ketones Negative (Negative) Ur Blood (Man) Negative (Negative) Urine Nitrate Negative (Negative) Urine Bilirubin Negative (Negative) Urine Urobilinogen 0.2 (0.2-1.0) mg/dL Leukocyte Esterase Rfl Negative (Negative) REJI/UL Influenza A (RT-PCR) Negative (Negative) Influenza B (RT-PCR) Negative (Negative) RSV (RT-PCR) Negative (Negative) SARS-CoV-2 RNA (RT-PCR) Negative (Negative) Imaging Data Attestation: I personally reviewed and interpreted this imaging study as follows: Discharge Plan Discharge Clinical Impression: COPD exacerbation COPD (chronic obstructive pulmonary disease) Qualifiers: COPD type: unspecified COPD Qualified Code(s): J44.9 - Chronic obstructive pulmonary disease, unspecified Patient Disposition: Home Condition: Stable Instructions: COPD (Chronic Obstructive Pulmonary Disease) (ED) Patient Language: Turkish Prescriptions: New prednisone 50 mg tablet 50 mg PO DAILY Qty: 5 0RF No Action pravastatin 20 mg tablet 20 mg PO DAILY Rx Instructions: TAKE ONE TABLET BY MOUTH DAILY loratadine 10 mg Tablet 10 mg PO QHS Qty: 30 0RF finasteride 5 mg tablet 5 mg PO DAILY magnesium oxide 400 mg (241.3 mg magnesium) Tablet 400 mg PO DAILY Qty: 30 0RF albuterol sulfate 90 mcg/actuation HFA aerosol inhaler 1 - 2 inh inhalation Q4-6H PRN (Reason: shortness of breath or wheezing) 90 Days Qty: 25.5 2RF metoprolol tartrate 25 mg tablet 25 mg PO BID Qty: 60 5RF omeprazole 40 mg capsule,delayed release(DR/EC) 40 mg PO DAILY Qty: 100 1RF ipratropium bromide 0.02 % solution 2.5 ml inhalation Q6H PRN (Reason: shortness of breath or wheezing) Qty: 75 3RF Eliquis 5 mg tablet See Rx Instructions .ROUTE .COMPLEX Qty: 180 3RF Dose Instruction: TAKE 1 TABLET TWICE A DAY (DUE FOR OFFICE VISIT) Rx Instructions: TAKE 1 TABLET TWICE A DAY (DUE FOR OFFICE VISIT) diltiazem HCl 180 mg capsule,extended release 24hr See Rx Instructions .ROUTE .COMPLEX Qty: 90 2RF Dose Instruction: TAKE ONE CAPSULE BY MOUTH DAILY Rx Instructions: TAKE ONE CAPSULE BY MOUTH DAILY escitalopram oxalate 10 mg tablet See Rx Instructions .ROUTE .COMPLEX Qty: 90 0RF Dose Instruction: TAKE ONE TABLET BY MOUTH DAILY Rx Instructions: TAKE ONE TABLET BY MOUTH DAILY roflumilast [Daliresp] 500 mcg tablet 500 mcg PO DAILY Qty: 90 1RF Trelegy Ellipta 100-62.5-25 mcg blister with device 1 inh INHALATION DAILY Qty: 60 0RF tamsulosin 0.4 mg capsule 0.4 mg PO BID Qty: 60 5RF eszopiclone [Lunesta] 2 mg tablet 2 mg PO ONCE Qty: 1 0RF Rx Instructions: Take with you to sleep lab on the night of sleep study. Follow-up/Referrals: Sammy Watson MD [Primary Care Provider] - Time of Disposition: 17:46
--- NOTE | 2024-11-20 17:46 | PC.NURSE ---
PT IS AWAITING RETURN OF , HE IS TO BE DISCHARGED HOME. BREATHING HAS GREATLY IMPROVED, NAD NOTED AT THIS TIME. PT IS CALM AND REPORTS HE IS FEELING MUCH BETTER. WILL CONTINUE TO MONITOR.
== END 2024-11-20 18:00 | disposition home or self-care (01) ==
PROVIDERS: Emergency Provider Family Medicine; PCP Family Medicine
DX: J44.1 Chronic obstructive pulmonary disease with (acute) exacerbation (principal); I13.0 Hypertensive heart and chronic kidney disease with heart failure and stage 1 through stage 4 chronic kidney disease, or unspecified chronic kidney disease; I50.9 Heart failure, unspecified; N18.30 Chronic kidney disease, stage 3 unspecified; I25.2 Old myocardial infarction; I48.19 Other persistent atrial fibrillation; I25.10 Atherosclerotic heart disease of native coronary artery without angina pectoris; Z87.891 Personal history of nicotine dependence; Z20.822 Contact with and (suspected) exposure to COVID-19
CPT/HCPCS: 36415; 71045; 80053; 81003; 83735; 83880; 85025; 85380; 87637; 93005; 96374; 96376; 99284; A9270; J1938

== ENCOUNTER 2024-12-07 11:56 | Outpatient (CLI) | payer MEDICARE, SELFPAY ==
[2024-12-07 12:10] LABS: Basophils Absolute Auto 0.09 K/mm3 (0.00-0.10); Basophils Percent Auto 0.7 % (0.0-1.0); Eosinophils Absolute Auto 0.43 K/mm3 (0.02-0.50); Eosinophils Percent Auto 3.2 % (1.0-6.0); Hematocrit 40.1 % (37.0-46.0); Hemoglobin 12.2 g/dL (12.4-15.3); Immature Granulocyte Absolute 0.07 K/mm3 (0.00-0.00); Immature Granulocyte Percent A 0.5 % (0.0-0.0); Lymphocytes Percent Auto 18.7 % (18.0-42.0); Mean Corpuscular HGB Conc 30.4 g/dL (32-36); Mean Corpuscular Hemoglobin 25.8 pg (27.0-31.0); Mean Platelet Volume 9.1 fl (8.7-11.0); Monocytes Absolute Auto 0.73 K/mm3 (0.10-0.90); Monocytes Percent Auto 5.5 % (2.0-11.0); Neutrophils Absolute Auto 9.57 K/mm3 (1.70-7.20); Neutrophils Percent Auto 71.4 % (50.0-70.0); Platelet Count Result 348 K/mm3 (150-420); Red Blood Count 4.72 M/mm3 (4.70-6.10); White Blood Count 13.4 K/mm3 (4.8-10.8)
[2024-12-07 13:13] LABS: Alanine Aminotransferase 18 U/L (16-63); Alkaline Phosphatase 114 U/L (46-116); Anion Gap 8 mmol/L (4-12); Aspartate Amino Transferase 13 U/L (15-37); Bilirubin,Total 0.5 mg/dL (0.00-1.00); Blood Urea Nitrogen 19 mg/dL (7-18); Calcium 9.1 mg/dL (8.5-10.1); Carbon Dioxide 30 mmol/L (21-32); Chloride 102 mmol/L (98-108); Estimated Glomerular Filt Rate 47; Glucose 95 mg/dL (70-99); NT Pro B Type Natriuretic Pept 1850 pg/mL (0-125); Osmolality Calculated 292 mOsm/kg (285-295); Potassium 4.7 mmol/L (3.5-5.1); Sodium 140 mmol/L (136-145); Total Protein 6.7 g/dL (6.4-8.2)
--- OUTSIDE RECORDS SUMMARY | 2024-12-08 13:01 | XMS_ITS | Clinical Summary ---
Author Organization [facility] Address [address] [place] [address] Phone Care Team Providers Care Respiratory Care Faculty Name Role Phone Unavailable Primary Care Provider [...] Encounters Date Type Department Care Team Description 12/07/2024 Abstract [facility] Pulmonology [address] [place] [address] Provider, Abstract 11/20/2024 External Device Data [facility] ABSTRACTION Provider, Abstract 11/13/2024 External Device Data [facility] Provider, Abstract 10/24/2024 External Device Data [facility]STRACTION Provider, Abstract 10/15/2024 External Device Data [facility]STRACTION Provider, Abstract 10/02/2024 External Device Data [facility] ABSTRACTION Provider, Abstract 10/02/2024 Telephone [facility] Pulmonology [address] [place] [address] Jean Ansari MD Information 09/10/2024 12:46 PM WALL WASHER - 09/10/2024 11:59 PM WALL WASHER Hospital Encounter [facility] Pulmonary Function Medical [address] [place] [address] Jean Ansari MD Discharge Disposition: Home or Self Care from Last 3 Months Social History Tobacco Use Types Packs/Day Years Used Date Smoking Tobacco: Former Cigarettes Smokeless Tobacco: Never Sex and Gender Information Value Date Recorded Sex Assigned at Male 07/05/2024 10:59 AM WALL WASHER Legal Sex Male 1:57 PM WALL WASHER Gender Identity Male 07/05/2024 10:59 AM WALL WASHER Sexual Orientation Straight 07/05/2024 10 :59 AM WALL WASHER Last Filed Vital Signs Vital Sign Reading Time Taken Comments Blood Pressure 118/76 07/12/2024 10:06 AM WALL WASHER Pulse 83 07/12/2024 10:06 AM WALL WASHER Temperature - - Respiratory Rate - - Oxygen Saturation 97% 07/12/2024 10:06 AM WALL WASHER Inhaled Oxygen Concentration - - Weight 27.8 kg (61 lb 3.2 oz) 07/12/2024 10:06 A M WALL WASHER Height 182.9 cm (6') 07/12/2024 10:06 AM WALL WASHER Body Mass Index 8.3 07/12/2024 10:06 AM WALL WASHER Plan of Treatment Health Maintenance Due Date [...] PULMONARY FUNCTION TEST Routine 09/10/2024 1:08 PM WALL WASHER Chronic obstructive pulmonary disease, unspecified COPD type (CMS/HCC) from Last 3 Months Results * PULMONARY FUNCTION TEST (09/10/2024 1:08 PM WALL WASHER) 09/10/2024 1:08 PM WALL WASHER Narrative INTERFACE SYSTEM - 09/10/2024 4:40 PM WALL WASHER [facility] [address], [place] [address] Test Date: 2024-09-10 Pat Name: CHILO JI Department: Room: Gender: Male Dragger Out: : 1950 Requested By: JEAN Carranza Order Number: [id number] Clyde FERGUSON: Melecio Travis Interpretive Statements Technologist's Comments: Difficulty with lung volume testing; however adequate Test. Normal appearing inspiratory flow limb; scooping of expiratory flow limb suggestive of obstruction. IMPRESSION: Severe obstructive ventilatory defect without a significant response seen to an inhaled bronchodilator. Normal total lung volumes with evidence of mild air trapping. Severe diffusion capacity abnormality. Electronically Signed On 09-10-2024 16:40:32 WALL WASHER by Melecio Travis Procedure Note Provider, Historical 09/10/2024 [facility] [address] [place] [address] Test Date: 2024-09-10 Pat Name: CHILO JI Department: Room: Gender: Male Dragger Out: : 1950 Requested By: JEAN Carranza Order Number: [id number] Clyde FERGUSON: Melecio Travis Interpretive Statements Technologist's Comments: Difficulty with lung volume testing; however adequate Test. Normal appearing inspiratory flow limb; scooping of expiratory flow limb suggestive of obstruction. IMPRESSION: Severe obstructive ventilatory defect without a significant response seento an inhaled bronchodilator. Normal total lung volumes with evidence of mild air trapping. Severe diffusion capacity abnormality. Electronically Signed On 09-10-2024 16:40:32 WALL WASHER by Melecio Travis Jean Ansari MD PFT ORDERABLES Final Result INTERFACE SYSTEM Refer to clinic/hospital department from Last 3 Months Insurance MEDICARE PART A AND B [facility]
--- OUTSIDE RECORDS SUMMARY | 2024-12-08 13:01 | XMS_ITS | Clinical Summary ---
Author Organization [facility] [address] Address [address] [place] [address] Care Team Providers Care Bucket Turner Name Role Phone Liliana May MD Primary Care Provider Moose Singleton MD Unavailable [phone] Allergies Active Allergy Reactions Criticality Noted Date [...] Administration Dates Next Due Influenza, Unspecified 05/14/2021 [place]os[place] (J&J) SARS-CoV-2 Vaccination 11/10/2020 Surgical History Surgery [...] CDT Gender Identity Male 09/04/2024 11:22 AM PAY AGENT Sexual Orientation Straight 09/04/2024 11 :22 AM PAY AGENT Obstetrics History Last Filed Vital Signs Vital [...] Completed 10/01/2021 Medical Devices Implanted Type Area Retail Personal Banker Device Identifier Shelf Expiration Date Model / Serial / Lot Stent N/A: Heart Procedures Procedure Name Priority Date/Time Associated Diagnosis Comments CTA ABDOMINAL AORTA AND BILATERAL ILIOFEMORAL RUNOFF Schedule Routine, Read Routine (OP Routine) 10/01/2021 10:38 AM PAY AGENT FOM (cancer of floor of mouth) ([facility]) from Last 3 Months or Most Recently Relevant to Health Maintenance Results * CTA Abdominal Aorta And Bilateral Iliofemoral Runoff (10/01/2021 10:38 AM PAY AGENT) Anatomical Region Laterality Modality Body Bilateral Computed Tomogra phy 10/01/2021 11:2 6 AM PAY AGENT Impressions 10/01/2021 2:02 PM PAY AGENT 1. Right lower extremity: There is three-vessel [...] Samson Toro M.D. Narrative 10/01/2021 2:02 PM PAY AGENT EXAMINATION: CT ANGIOGRAPHY OF THE ABDOMEN, PELVIS, [...] Recently Relevant to Health Maintenance Insurance MEDICARE [facility] Address: [facility] [address] [place] [address] [employer] MEDICARE FOR LIFE MEDICARE FOR LIFE Advance Directives For more information, please contact: [phone] * Full Code (Latest Code Status on File) Date Activated Date Inactivated Comments 10/16/2021 7:39 PM 10/18/2021 2:11 PM * Full Code Date Activated Date Inactivated Comments 10/09/2021 4:36 PM 10/11/2021 8:52 PM Care Teams Bucket Turner Relationship Specialty Start Date End Date Liliana May MD [address] [place] [address] PCP - General Family Medicine 01/01/21 Moose Singleton MD [address] [place] [address] Consulting Physician Otolaryngology 09/27/21
--- OUTSIDE RECORDS SUMMARY | 2024-12-08 13:01 | XMS_ITS | Clinical Summary ---
Author Organization [facility] Address [address] [place] [address] Care Team Providers Care Technician Name Role Phone Unavailable Primary Care [...] Td Vaccines ( 1 - Tdap) 01/27/1971 Pneumococcal Vaccine: 50+ Ye ars (1 of 1 - PCV) 01/27/2002 Zoster Vaccines (1 of 2) 01/27/2002 COVID-19 Vaccine ( - 2023-2 5 season) [...]
--- OUTSIDE RECORDS SUMMARY | 2024-12-08 13:01 | XMS_ITS | Referral Summary ---
Author Organization [facility] [address] Address [address] [place] [address] Care Team Providers Care Lot Technician Name Role Phone Liliana May MD Primary Care Provider Moose Singleton MD Unavailable [phone] Allergies Active Allergy Reactions Criticality Noted Date [...] CDT Gender Identity Male 09/04/2024 11:22 AM LADLE PATCHER Sexual Orientation Straight 09/04/2024 11 :22 AM LADLE PATCHER Last Filed Vital Signs Vital Sign Reading [...] on file Medical Devices Implanted Type Area Patch Setter Device Identifier Shelf Expiration Date Model / Serial / Lot Stent N/A: Heart Procedures Procedure Name Priority Date/Time Associated Diagnosis Comments CTA ABDOMINAL AORTA AND BILATERAL ILIOFEMORAL RUNOFF Schedule Routine, Read Routine (OP Routine) 10/01/2021 10:38 AM LADLE PATCHER FOM (cancer of floor of mouth) ([facility]) from Last 3 Months or Most Recently Relevant to Health Maintenance Results * CTA Abdominal Aorta And Bilateral Iliofemoral Runoff (10/01/2021 10:38 AM LADLE PATCHER) Anatomical Region Laterality Modality Body Bilateral Computed Tomogra phy 10/01/2021 11:2 6 AM LADLE PATCHER Impressions 10/01/2021 2:02 PM LADLE PATCHER 1. Right lower extremity: There is three-vessel [...] Samson Toro M.D. Narrative 10/01/2021 2:02 PM LADLE PATCHER EXAMINATION: CT ANGIOGRAPHY OF THE ABDOMEN, PELVIS, [...] Recently Relevant to Health Maintenance Insurance MEDICARE [employer] MEDICARE [facility] MEDICARE FOR LIFE Advance Directives For more information, please contact: [phone] * Full Code (Latest Code Status on File) Date Activated Date Inactivated Comments 10/16/2021 7:39 PM 10/18/2021 2:11 PM * Full Code Date Activated Date Inactivated Comments 10/09/2021 4:36 PM 10/11/2021 8:52 PM Care Teams Lot Technician Relationship Specialty Start Date End Date Liliana May MD [address] [facility] [address] [place] [address] PCP - General Family Medicine 01/01/21 Moose Singleton MD [address] [facility] [address] [place] [address] Consulting Physician Otolaryngology 09/27/21
--- OUTSIDE RECORDS SUMMARY | 2024-12-08 13:01 | XMS_ITS ---
Author Organization [facility] [address] Address [address] [place] [address] Care Team Providers Care Director Of Sales Name Role Phone Liliana May MD Primary Care Provider Moose Singleton MD Unavailable [phone] Active Problems Problem Noted Date Diagnosed Date [...]
== END 2024-12-07 11:57 | disposition home or self-care (01) ==
LOC: CHSLAB 11:59
PROVIDERS: PCP Family Medicine; Visit Provider Physician Assistant
DX: I50.9 Heart failure, unspecified (principal); N17.9 Acute kidney failure, unspecified; D72.829 Elevated white blood cell count, unspecified
CPT/HCPCS: 36415; 80053; 83880; 85025

== ENCOUNTER 2024-12-15 19:54 | Outpatient (CLI) | payer MEDICARE, OTHER, SELFPAY ==
--- OUTSIDE RECORDS SUMMARY | 2024-12-15 20:00 | XMS_ITS ---
Author Organization [facility] [address] Address [address] [place] [address] Care Team Providers Care Healthcare Facility Administrator Name Role Phone Liliana May MD Primary Care Provider Moose Singleton MD Unavailable [phone] Active Problems Problem Noted Date Diagnosed Date [...]
--- OUTSIDE RECORDS SUMMARY | 2024-12-15 20:00 | XMS_ITS | Clinical Summary ---
Author Organization [facility] Address [address] [facility] [place] [address] Phone Care Team Providers Care Cigarette Inspector Name Role Phone Unavailable Primary Care Provider [...] Type Department Care Team Description 12/07/2024 Abstract [facility] Pulmonology [address] [place] [address] Provider, Abstract 11/20/2024 External Device Data ST[facility] ABSTRACTION Provider, Abstract 11/13/2024 External Device Data [facility] ABSTRACTION Provider, Abstract 10/24/2024 External Device Data [facility] ABSTRACTION Provider, Abstract 10/15/2024 External Device Data [facility] ABSTRACTION Provider, Abstract 10/02/2024 External Device Data [facility] ABSTRACTION Provider, Abstract 10/02/2024 Telephone [facility] Pulmonology [address] [place] [address] Salvador Ansari MD Information from Last 3 Months Social History Tobacco Use Types Packs/Day Years Used Date Smoking Tobacco: Former Cigarettes Smokeless Tobacco: Never Sex and Gender Information Value Date Recorded Sex Assigned at Male 07/05/2024 10:59 AM PROBATE PARALEGAL Legal Sex Male 1:57 PM PROBATE PARALEGAL Gender Identity Male 07/05/2024 10:59 AM PROBATE PARALEGAL Sexual Orientation Straight 07/05/2024 10 :59 AM PROBATE PARALEGAL Last Filed Vital Signs Vital Sign Reading Time Taken Comments Blood Pressure 118/76 07/12/2024 10:06 AM PROBATE PARALEGAL Pulse 83 07/12/2024 10:06 AM PROBATE PARALEGAL Temperature - - Respiratory Rate - - Oxygen Saturation 97% 07/12/2024 10:06 AM PROBATE PARALEGAL Inhaled Oxygen Concentration - - Weight 27.8 kg (61 lb 3.2 oz) 07/12/2024 10:06 A M PROBATE PARALEGAL Height 182.9 cm (6') 07/12/2024 10:06 AM PROBATE PARALEGAL Body Mass Index 8.3 07/12/2024 10:06 AM PROBATE PARALEGAL Plan of Treatment Health Maintenance Due Date [...] 2024 COVID-19 Vaccine (2 - season) 04/08/202412/2020 Insurance MEDICARE PART A AND B [employer] Member Subscriber Plan / Payer (Ef fective 2023-Present) Name:Chilo Cross Relation to Subscriber:Self Name:Chilo Cross Payer ID:Not on file Type:[facility] Address: [facility] [address] [id number]
--- OUTSIDE RECORDS SUMMARY | 2024-12-15 20:00 | XMS_ITS | Clinical Summary ---
Author Organization [facility] Address [address] [place] [address] Care Team Providers Care Tracer Lathe Set Up Operator Name Role Phone Unavailable Primary Care [...] this topic Meningococcal Vaccine Aged Out No hutner ananth eligible based on patient's age to complete this topic RSV Immunizations Under 20 Months Aged Out No longer eligible based on patient's age to complete this topic
--- OUTSIDE RECORDS SUMMARY | 2024-12-15 20:00 | XMS_ITS | Referral Summary ---
Author Organization [facility] [address] Address [address] [place] [address] Care Team Providers Care Cheese Packer Name Role Phone Liliana May MD Primary Care Provider Moose Singleton MD Unavailable [phone] Allergies Active Allergy Reactions Criticality Noted Date [...] Used Date Smoking Tobacco: Former Cigarettes 0.4 57.4 S tarted: 1966 Smokeless Tobacco: Never Tobacco [...] CDT Gender Identity Male 09/04/2024 11:22 AM JET MAN Sexual Orientation Straight 09/04/2024 11 :22 AM JET MAN Last Filed Vital Signs Vital Sign Reading [...] on file Medical Devices Implanted Type Area Travel Information Center Supervisor Device Identifier Shelf Expiration Date Model / Serial / Lot Stent N/A: Heart Procedures Procedure Name Priority Date/Time Associated Diagnosis Comments CTA ABDOMINAL AORTA AND BILATERAL ILIOFEMORAL RUNOFF Schedule Routine, Read Routine (OP Routine) 10/01/2021 10:38 AM JET MAN FOM (cancer of floor of mouth) ([facility]) from Last 3 Months or Most Recently Relevant to Health Maintenance Results * CTA Abdominal Aorta And Bilateral Iliofemoral Runoff (10/01/2021 10:38 AM JET MAN) Anatomical Region Laterality Modality Body Bilateral Computed Tomogra phy 10/01/2021 11:2 6 AM JET MAN Impressions 10/01/2021 2:02 PM JET MAN 1. Right lower extremity: There is three-vessel [...] Samson Toro M.D. Narrative 10/01/2021 2:02 PM JET MAN EXAMINATION: CT ANGIOGRAPHY OF THE ABDOMEN, PELVIS, [...] Recently Relevant to Health [place] [address] [employer] MEDICARE [facility] MEDICARE FOR LIFE Advance Directives For more information, please contact: [phone] * Full Code (Latest Code Status on File) Date Activated Date Inactivated Comments 10/16/2021 7:39 PM 10/18/2021 2:11 PM * Full Code Date Activated Date Inactivated Comments 10/09/2021 4:36 PM 10/11/2021 8:52 PM Care Teams Cheese Packer Relationship Specialty Start Date End Date Liliana May MD [address] [facility] [address] [place] [address] PCP - General Family Medicine 01/01/21 Moose Singleton MD [address] [facility] [address] [place] [address] Consulting Physician Otolaryngology 09/27/21
--- OUTSIDE RECORDS SUMMARY | 2024-12-15 20:00 | XMS_ITS | Clinical Summary ---
Author Organization [facility] [address] Address [address] [place] [address] Care Team Providers Care Reinforced Steel Placing Supervisor Name Role Phone Liliana May MD Primary Care Provider Moose Singleton MD Unavailable [phone] Allergies Active Allergy Reactions Criticality Noted Date [...] CDT Gender Identity Male 09/04/2024 11:22 AM LASTEX THREAD WINDER Sexual Orientation Straight 09/04/2024 11 :22 AM LASTEX THREAD WINDER Obstetrics History Last Filed Vital Signs Vital [...] Completed 10/01/2021 Medical Devices Implanted Type Area Rig Site Engineer Device Identifier Shelf Expiration Date Model / Serial / Lot Stent N/A: Heart Procedures Procedure Name Priority Date/Time Associated Diagnosis Comments CTA ABDOMINAL AORTA AND BILATERAL ILIOFEMORAL RUNOFF Schedule Routine, Read Routine (OP Routine) 10/01/2021 10:38 AM LASTEX THREAD WINDER FOM (cancer of floor of mouth) ([facility]) from Last 3 Months or Most Recently Relevant to Health Maintenance Results * CTA Abdominal Aorta And Bilateral Iliofemoral Runoff (10/01/2021 10:38 AM LASTEX THREAD WINDER) Anatomical Region Laterality Modality Body Bilateral Computed Tomogra phy 10/01/2021 11:2 6 AM LASTEX THREAD WINDER Impressions 10/01/2021 2:02 PM LASTEX THREAD WINDER 1. Right lower extremity: There is three-vessel [...] Samson Toro M.D. Narrative 10/01/2021 2:02 PM LASTEX THREAD WINDER EXAMINATION: CT ANGIOGRAPHY OF THE ABDOMEN, PELVIS, [...] Recently Relevant to Health Maintenance Insurance MEDICARE [employer] MEDICARE FOR LIFE MEDICARE FOR LIFE Advance Directives For more information, please contact: [phone] * Full Code (Latest Code Status on File) Date Activated Date Inactivated Comments 10/16/2021 7:39 PM 10/18/2021 2:11 PM * Full Code Date Activated Date Inactivated Comments 10/09/2021 4:36 PM 10/11/2021 8:52 PM Care Teams Reinforced Steel Placing Supervisor Relationship Specialty Start Date End Date Liliana May MD [address] [place] [address] PCP - General Family Medicine 01/01/21 Moose Singleton MD [address] [place] [address] Consulting Physician Otolaryngology 09/27/21
--- NOTE | 2025-01-14 15:52 | WPDSLEEPSTUD ---
Sleep Study Date of Study: 12/15/24 Ordering Provider: Mahin Black APRN Interpreting Physician: Tasia Palmer DO Sleep Study Type: CPAP Titration Height: 1.83 m Weight: 72.575 kg Body Mass Index: 21.7 Neck Circumference (inches): 15.5 Morton: 15 Reason for Sleep Study WatchPAT home sleep test on 11/14/2024 showed an overall AHI of 46.9, ELEANOR of 17.4 and desaturation down to 83%. Sleep History Chilo Cross is a 74-year-old man with excessive daytime sleepiness. There is a strong family history of obstructive sleep apnea his daughter and grandson. He occasionally awakens from sleep feeling short of breath. He rarely wakes at night with heartburn, belching or coughing.??He says that he does not snore and others do not complain about his snoring. He rarely has trouble sleeping when he has a cold. He rarely wakes up gasping for breath during the night. He occasionally has breathing problems at night. He rarely sweats excessively at night. He occasionally notices his heart pounding or beating irregularly during the night. He frequently falls asleep during the day. He constantly falls asleep involuntarily, rarely falls asleep while driving. He never experiences loss of muscle tone with strong emotion. He occasionally has daytime difficulty at work due to excessive sleepiness. He rarely feels paralyzed on waking or falling asleep. He occasionally experiences vivid dreams upon waking or falling asleep. He never feels afraid of going to sleep. He rarely has nightmares. He rarely recalls his dreams. He constantly has thoughts racing through his mind. He rarely feels sad or depressed. He occasionally feels anxiety. He occasionally notices parts of his body jerk. He rarely kicks during the night. He rarely feels crawling or aching feelings in his legs. He rarely feels leg pain at night. He never has morning jaw pain, never grinds his teeth at night. He occasionally feels bothered by pain during the day, rarely is awakened by pain during the night. He rarely wakes up feeling stiff in the morning, and he rarely wakes feeling sore or achy. He occasionally awakens with pain in his neck, spine, or joints. He has fatigue, frequent morning headaches and although he frequently may awaken feeling refreshed, he is frequently sleepy during the day. Normal bedtime is between 11:00 p.m. and 12 midnight, falling asleep within 30 minutes, waking 3-4 times during the night to go to the bathroom. It is easy for him to return to sleep. His normal wake time is between 6:00 a.m. and 7:00 a.m.. He maintains the same schedule on weekends. He typically gets between 6 and 7 hours of sleep per night. He takes naps in the day, and a short nap lasting 10-15 minutes may be refreshing. Habits:??Tobacco: Former smoker Caffeine: 2 servings a day Alcohol: None Recreational substances: None PMFSH Past Medical History Medical History Pneumonia Acute upper respiratory infection Thrush of mouth and esophagus Chronic anticoagulation Oral cancer Completely excised, no additional treatment required. Septic shock Gastroesophageal reflux disease Coronary artery disease Chronic obstructive pulmonary disease Former smoker Chronic kidney disease, stage 3 Hypertension Heart failure with reduced ejection fraction Echocardiogram in April 2023 showed reduced LV function with an EF of 40 to 45% and abnormal diastolic function. Community acquired pneumonia, bilateral Chest pain Elevated d-dimer COPD exacerbation Sinusitis Myocardial infarction Evidence of infarct on stress test from September 2018 without reversible ischemia, EF of 37%. Pneumonia Osteoporosis Rectal polyp Dyslipidemia Persistent atrial fibrillation Vitamin D deficiency, unspecified Surgical History Surgical History History of tonsillectomy History of bilateral cataract extraction History of colonoscopy with polypectomy History of vasectomy Family History Family History Mother Patient's mother is Family history of malignant neoplasm Social History Social History Social History: Surrogate medical decision maker: Beulah Cross, spouse. Code status: Full code. Smoking packs per day: 1.5 Smoking cigarettes per day: 30.0 Years smoked: 50 Smoking pack-years: 75.00 Smoking status: Former smoker Tobacco type: cigarettes Second hand tobacco smoke exposure: Yes Smoking end date: 10/09/21 Alcohol intake: never Drinks per week: 0 Alcohol use details: Rare alcohol use in moderation. Substance use: never Substance use type: does not use Do You Feel Safe in your Home?: Yes Lack of Transportation: No Lack of Food: Never True Current Housing: I Have Housing Concerned About Future Housing: No Difficulty Paying Gas/Electric Bills: No Difficulty Paying for Meds: No Currently Unemployed: No Education: High School Diploma/GED Difficulty w/ Childcare or Family Care: No Living arrangements: with family Additional living arrangements comments: Lives with spouse and son in [place]. Occupation/Education: retired Additional occupation/education comments: Retired from the [employer] after 24 years. Worked for [employer] thereafter. Gender identity (if verbalized by the patient): Male Sexual Orientation (if Verbalized by the Patient): Straight or Heterosexual Spiritual care concerns: No Agree to blood products: Yes Medications Home Medications ?Medication ?Instructions ?Recorded ?Confirmed ?Type finasteride 5 mg tablet 5 mg PO DAILY 01/06/24 01/01/25 History omeprazole 40 mg capsule,delayed 40 mg PO DAILY #100 caps 03/19/24 01/01/25 Rx release albuterol sulfate 90 mcg/actuation 1 - 2 inh inhalation Q4-6H PRN 06/15/24 01/01/25 Rx aerosol inhaler shortness of breath or wheezing 90 days #25.5 grams loratadine 10 mg tablet 10 mg PO QHS #30 tabs 07/19/24 01/01/25 Rx ipratropium bromide 0.02 % 2.5 ml inhalation Q6H PRN 08/14/24 01/01/25 Rx solution for inhalation shortness of breath or wheezing #75 mL magnesium oxide 400 mg (241.3 mg 400 mg PO DAILY #30 tabs 08/24/24 01/01/25 Rx magnesium) tablet metoprolol tartrate 25 mg tablet 25 mg PO BID #60 tabs 09/07/24 01/01/25 Rx apixaban 5 mg tablet (Eliquis) See Rx Instructions .Route 10/10/24 01/01/25 Rx .COMPLEX #180 tabs diltiazem HCl 180 mg See Rx Instructions .Route 10/29/24 01/01/25 Rx capsule,extended release 24 hr .COMPLEX #90 caps roflumilast 500 mcg tablet 500 mcg PO DAILY #90 tabs 10/30/24 01/01/25 Rx (Daliresp) tamsulosin 0.4 mg capsule 0.4 mg PO BID #60 caps 11/13/24 01/01/25 Rx escitalopram oxalate 10 mg tablet See Rx Instructions .Route 11/27/24 01/01/25 Rx .COMPLEX #90 tabs fluticasone fur. 200 mcg-umeclid 1 inh inhalation DAILY #60 ea 01/01/25 01/01/25 Rx 62.5 mcg-vilant 25 mcg inhalat.powder (Trelegy Ellipta) pravastatin 20 mg tablet See Rx Instructions .Route 01/14/25 Rx .COMPLEX #90 tabs Sleep Procedure A full night CPAP Titration using the NanoICE multi-channel system recorded the standard physiologic parameters including EEG, EOG, submentalis EMG, anterior tibialis EMG, EKG, body position, nasal and oral airflow using nasal pressure sensor and thermistor.? Respiratory parameters of chest and abdominal movements were recorded with Respiratory Inductance Plethysmography belts. Oxygen saturation was recorded by pulse oximetry. Video monitoring was also performed. Sleep stages, periodic limb movements, and EEG arousals were scored in 30 second epochs according to the criteria of the AASM Scoring Manual. The Apnea-Hypopnea Index was calculated using CMS guidelines for definition of hypopnea with 4% O2 desaturations while scoring respiratory events. Sleep Architecture The total recording time was 306.9 minutes.? The total sleep time was 17.5 minutes. Sleep latency was 36.6 minutes. REM sleep was not achieved during this study. Sleep efficiency was 5.7%. The patient had 18 awakenings for an awakening index of 61.7. Wake after Sleep Onset time was 247.0 minutes. The patient spent 16.5 minutes, 94.3% of total sleep time in Stage N1. The patient spent 1.0 minutes, 5.7% in Stage N2. The patient spent 0.0 minutes, 0.0% in Stage N3. The patient spent 0.0 minutes, 0.0% in Stage REM. Respiratory Analysis The patient had no respiratory events, resulting in an overall Apnea Hypopnea Index of 0 events per hour. The REM Apnea Hypopnea Index was 0. The NREM Apnea Hypopnea Index was 0. The patient had a Central Apnea Hypopnea Index of 0. There was no evidence of Josemanuel-Clay Respirations. The patient was started on CPAP 5 cm H2O and titrated to CPAP 8 cm H2O. The patient was able to fall asleep starting on CPAP 5 cm H2O. The patient was never able to achieve REM sleep during this study. The patient was only able to achieve 17.5 minutes of total sleep time, resulting in a sleep efficiency of 5.7%. While there were no respiratory events throughout the time he was asleep during the study, there was not enough sleep time to find a pressure setting that would likely resolve his sleep apnea. Arousals There were 29 total arousals for an arousal index of 89.2. There were 7 spontaneous arousals for an index of 21.5. ?There were 2 arousals due to respiratory events for an index of 6.2. There were 4 arousals due to isolated limb movements for an index of 12.3.? There were 18 arousals due to periodic limb movements for an index of 55.4. Periodic Limb Movements The patient had 7 isolated limb movements with an index of 24.0. The patient had 39 periodic limb movements with index of 133.7, which is elevated (normal < 15). Patient had a total of 46 limb movements with a total limb movement index of 157.7. Oximetry Data The patient had an average oxygen saturation of 92.6% in sleep with a minimum oxygen saturation of 89.0% and a maximum oxygen saturation of 94.0%. The patient had 1 oxygen desaturation that was 4% or greater resulting in an Oxygen Desaturation Index of 3.1.? The patient spent 0 minutes of total sleep time with an oxygen saturation below 88%. Snoring Profile Moderate snores were present intermittently in the beginning of the study. The snoring did not resolve once the patient was titrated to the final pressure setting of 10 cm H2O. Cardiac Profile The EKG showed atrial fibrillation with rare PVCs. The patient had an average pulse rate of 59.7 bpm with a minimum pulse rate of 44.0 bpm and a maximum pulse rate of 75.0 bpm. ? EEG Profile No signs of seizure activity seen. Assessment and Plan Assessment and Plan (1) ZEYAD (obstructive sleep apnea): Code(s): G47.33 - Obstructive sleep apnea (adult) (pediatric) Status: Acute Assessment and Plan: The patient was started on CPAP 5 cm H2O and titrated to CPAP 8 cm H2O. The patient was only able to achieve 17.5 minutes of total sleep time, resulting in a sleep efficiency of 5.7%. While there were no respiratory events throughout the time he was asleep during the study, there was not enough sleep time to find a pressure setting that would likely resolve his sleep apnea. The patient is not a candidate for an AutoPAP due to his elevated central apnea index. I recommend that the patient repeat a CPAP Titration study and use a hypnotic to ensure we obtain enough sleep data and find an optimal pressure setting to resolve his sleep apnea. Data The data obtained during this sleep study is adequate for interpretation. Certification This sleep study has been reviewed by a board certified sleep medicine physician.
[2025-01-15 10:11] VITALS: BMI 21.7
== END 2024-12-16 06:45 | disposition home or self-care (01) ==
LOC: CHSCSM 19:59
PROVIDERS: PCP Family Medicine; Visit Provider Nurse Practitioner Family
DX: G47.33 Obstructive sleep apnea (adult) (pediatric) (principal)
CPT/HCPCS: 95811

== ENCOUNTER 2025-01-26 19:49 | Outpatient (CLI) | payer MEDICARE, OTHER, SELFPAY ==
--- NOTE | 2025-02-14 11:56 | WPDSLEEPSTUD ---
Sleep Study Date of Study: 01/26/25 Ordering Provider: Mahin Black APRN Interpreting Physician: Stephani Carmona MD Sleep Study Type: BiPAP Titration Height: 1.83 m Weight: 72.575 kg Body Mass Index: 21.7 Neck Circumference (inches): 15.5 [place]: 15 Reason for Sleep Study * 11/14/2024 home sleep test using WatchPAT showed an overall AHI of 46.9, central apnea index 17.4 and desaturation down to 83%. he presents now for a full night CPAP titration. Sleep History This sleep history is from his 12/15/2024 sleep study questionnaire. Chilo Cross is a 74-year-old man with excessive daytime sleepiness. There is a strong family history of obstructive sleep apnea his daughter and grandson. He occasionally awakens from sleep feeling short of breath. He rarely wakes at night with heartburn, belching or coughing.??He says that he does not snore and others do not complain about his snoring. He rarely has trouble sleeping when he has a cold. He rarely wakes up gasping for breath during the night. He occasionally has breathing problems at night. He rarely sweats excessively at night. He occasionally notices his heart pounding or beating irregularly during the night. He frequently falls asleep during the day. He constantly falls asleep involuntarily, rarely falls asleep while driving. He never experiences loss of muscle tone with strong emotion. He occasionally has daytime difficulty at work due to excessive sleepiness. He rarely feels paralyzed on waking or falling asleep. He occasionally experiences vivid dreams upon waking or falling asleep. He never feels afraid of going to sleep. He rarely has nightmares. He rarely recalls his dreams. He constantly has thoughts racing through his mind. He rarely feels sad or depressed. He occasionally feels anxiety. He occasionally notices parts of his body jerk. He rarely kicks during the night. He rarely feels crawling or aching feelings in his legs. He rarely feels leg pain at night. He never has morning jaw pain, never grinds his teeth at night. He occasionally feels bothered by pain during the day, rarely is awakened by pain during the night. He rarely wakes up feeling stiff in the morning, and he rarely wakes feeling sore or achy. He occasionally awakens with pain in his neck, spine, or joints. He has fatigue, frequent morning headaches and although he frequently may awaken feeling refreshed, he is frequently sleepy during the day. Normal bedtime is between 11:00 p.m. and 12 midnight, falling asleep within 30 minutes, waking 3-4 times during the night to go to the bathroom. It is easy for him to return to sleep. His normal wake time is between 6:00 a.m. and 7:00 a.m.. He maintains the same schedule on weekends. He typically gets between 6 and 7 hours of sleep per night. He takes naps in the day, and a short nap lasting 10-15 minutes may be refreshing. Habits:??Tobacco: Former smoker Caffeine: 2 servings a day Alcohol: None Recreational substances: None PMFSH Past Medical History Medical History Pneumonia Acute upper respiratory infection Thrush of mouth and esophagus Chronic anticoagulation Oral cancer Completely excised, no additional treatment required. Septic shock Gastroesophageal reflux disease Coronary artery disease Chronic obstructive pulmonary disease Former smoker Chronic kidney disease, stage 3 Hypertension Heart failure with reduced ejection fraction Echocardiogram in April 2023 showed reduced LV function with an EF of 40 to 45% and abnormal diastolic function. Community acquired pneumonia, bilateral Chest pain Elevated d-dimer COPD exacerbation Sinusitis Myocardial infarction Evidence of infarct on stress test from September 2018 without reversible ischemia, EF of 37%. Pneumonia Osteoporosis Rectal polyp Dyslipidemia Persistent atrial fibrillation Vitamin D deficiency, unspecified Surgical History Surgical History History of tonsillectomy History of bilateral cataract extraction History of colonoscopy with polypectomy History of vasectomy Family History Family History Mother Patient's mother is Family history of malignant neoplasm Social History Social History Social History: Surrogate medical decision maker: Beulah Cross, spouse. Code status: Full code. Smoking packs per day: 1.5 Smoking cigarettes per day: 30.0 Years smoked: 50 Smoking pack-years: 75.00 Smoking status: Former smoker Tobacco type: cigarettes Second hand tobacco smoke exposure: Yes Smoking end date: 10/09/21 Alcohol intake: never Drinks per week: 0 Alcohol use details: Rare alcohol use in moderation. Substance use: never Substance use type: does not use Do You Feel Safe in your Home?: Yes Lack of Transportation: No Lack of Food: Never True Current Housing: I Have Housing Concerned About Future Housing: No Difficulty Paying Gas/Electric Bills: No Difficulty Paying for Meds: No Currently Unemployed: No Education: High School Diploma/GED Difficulty w/ Childcare or Family Care: No Living arrangements: with family Additional living arrangements comments: Lives with spouse and son in [place]. Occupation/Education: retired Additional occupation/education comments: Retired from the [employer] after 24 years. Worked for [employer] thereafter. Gender identity (if verbalized by the patient): Male Sexual Orientation (if Verbalized by the Patient): Straight or Heterosexual Spiritual care concerns: No Agree to blood products: Yes Medications Home Medications ?Medication ?Instructions ?Recorded ?Confirmed ?Type finasteride 5 mg tablet 5 mg PO DAILY 01/06/24 02/20/25 History omeprazole 40 mg capsule,delayed 40 mg PO DAILY #100 caps 03/19/24 02/20/25 Rx release albuterol sulfate 90 mcg/actuation 1 - 2 inh inhalation Q4-6H PRN 06/15/24 02/20/25 Rx aerosol inhaler shortness of breath or wheezing 90 days #25.5 grams loratadine 10 mg tablet 10 mg PO QHS #30 tabs 07/19/24 02/20/25 Rx ipratropium bromide 0.02 % 2.5 ml inhalation Q6H PRN 08/14/24 02/20/25 Rx solution for inhalation shortness of breath or wheezing #75 mL magnesium oxide 400 mg (241.3 mg 400 mg PO DAILY #30 tabs 08/24/24 02/20/25 Rx magnesium) tablet apixaban 5 mg tablet (Eliquis) See Rx Instructions .Route 10/10/24 02/20/25 Rx .COMPLEX #180 tabs diltiazem HCl 180 mg See Rx Instructions .Route 10/29/24 02/20/25 Rx capsule,extended release 24 hr .COMPLEX #90 caps roflumilast 500 mcg tablet 500 mcg PO DAILY #90 tabs 10/30/24 02/20/25 Rx (Daliresp) tamsulosin 0.4 mg capsule 0.4 mg PO BID #60 caps 11/13/24 02/20/25 Rx escitalopram oxalate 10 mg tablet See Rx Instructions .Route 11/27/24 02/20/25 Rx .COMPLEX #90 tabs fluticasone fur. 200 mcg-umeclid 1 inh inhalation DAILY #60 ea 01/01/25 02/20/25 Rx 62.5 mcg-vilant 25 mcg inhalat.powder (Trelegy Ellipta) pravastatin 20 mg tablet See Rx Instructions .Route 01/14/25 02/20/25 Rx .COMPLEX #90 tabs zolpidem 10 mg tablet 10 mg PO ONCE #1 tablet 01/16/25 02/07/25 Rx metoprolol tartrate 25 mg tablet See Rx Instructions .Route 02/01/25 02/20/25 Rx .COMPLEX #60 tabs Sleep Procedure A full night CPAP/BiPAP titration using the [employer] multi-channel system recorded the standard physiologic parameters including EEG, EOG, submentalis EMG, anterior tibialis EMG, EKG, body position, nasal and oral airflow using nasal pressure sensor and thermistor.? Respiratory parameters of chest and abdominal movements were recorded with Respiratory Inductance Plethysmography belts. Oxygen saturation was recorded by pulse oximetry. Video monitoring was also performed. Sleep stages, periodic limb movements, and EEG arousals were scored in 30 second epochs according to the criteria of the AASM Scoring Manual. The Apnea-Hypopnea Index was calculated using CMS guidelines for definition of hypopnea with 4% O2 desaturations while scoring respiratory events. The patient self-administered zolpidem 10 mg at the beginning of the study. He used a medium ResMed AirTouch F20 fullface mask with heated humidity, pressures were titrated from CPAP 6 cm, 8 cm, 9 cm, 10 cm, 11 cm, 12 cm, transition to BiPAP 14/10, BiPAP 15/10, BiPAP 16/10, BiPAP 17/11, BiPAP 13/9 and BiPAP 15/9. This patient had poor tolerance at all pressures. He had low sleep efficiency even though his sleep aid was stronger on this night. The patient told the indoor plant technician that he does not sleep well in hospitals especially on the 1st night. The indoor plant technician extended this study in order to obtain more data. This was a challenging titration. Sleep Architecture The total recording time was 521.0 minutes. The total sleep time was 157.5 minutes. Sleep latency was 19.1 minutes. REM latency was 362.5 minutes. Sleep efficiency was 30.2%. The patient had 119 awakenings for an awakening index of 45.3. Wake after Sleep Onset time was 344.0 minutes. The patient spent 109.5 minutes, 69.5% of total sleep time in Stage N1. The patient spent 47.5 minutes, 30.2% in Stage N2. The patient spent no time in Stage N3. The patient spent 0.5 minutes, 0.3% in Stage REM. Respiratory Analysis The patient had 9 hypopneas, no obstructive apneas, no mixed apneas, and no central apneas for an overall Apnea Hypopnea Index of 3.4 events per hour. The REM Apnea Hypopnea Index was 0. The NREM Apnea Hypopnea Index was 3.4. The patient had a Central Apnea Hypopnea Index of 0. There were no Respiratory Effort Related Arousals. The Respiratory Disturbance Index is 7.2 events per hour. There was no evidence of Josemanuel-Clay Respirations. Arousals There were 200 total arousals for an arousal index of 76.2. There were 61 spontaneous arousals for an index of 23.2. There were 28 arousals due to respiratory events for an index of 10.7. There were 89 arousals due to periodic limb movements for an index of 33.9. There were 23 arousals due to isolated limb movements for an index of 8.8. Periodic Limb Movements The patient had 57 isolated limb movements with an index of 21.7. The patient had 327 periodic limb movements with index of 124.6. Patient had a total of 384 limb movements with a total limb movement index of 146.3. Oximetry Data The patient had an average oxygen saturation of 92.8% in sleep with a minimum oxygen saturation of 89% and a maximum oxygen saturation of 98%. The patient had 11 oxygen desaturations that were 4% or greater resulting in an Oxygen Desaturation Index of 4.2. The patient spent no sleep time with an oxygen saturation below 88%. Snoring Profile He had moderate snoring during the night which improved at some settings. Cardiac Profile His underlying rhythm is atrial fibrillation with an average pulse rate of 69 beats per minute, minimum pulse 49 beats per minute maximum pulse 85 beats per minute. No arrhythmias noted. EEG Profile No signs of seizure activity seen. Assessment and Plan Assessment and Plan (1) ZEYAD (obstructive sleep apnea): Code(s): G47.33 - Obstructive sleep apnea (adult) (pediatric) Status: Acute Assessment and Plan: This full night CPAP BiPAP titration on 01/26/2025 was a challenging process, no single optimal pressure. The overall apnea-hypopnea index was 3.4, significantly improved. There were no central apneas, huge improvement. The patient has fragile sleep and had low sleep efficiency throughout the entire night. The highest sleep efficiency recorded was during bilevel titration. I am going to recommend auto bilevel as he did tolerate bilevel better than CPAP with best pressures 14/10, 15/9, 15/10 and 16/10. I recommend ResMed AirSense 10AutoSet with heated humidification, minimum pressure support 8 cm, maximum pressure support 18 cm, ramp time 5 minutes, no EPR. His sleep efficiency was very low on all settings. He had no REM during the night. He states that he has a difficult time sleeping in hospital or other unfamiliar environments. Over time, with use of auto BiPAP, he is anticipated to adjust. We recommend good sleep hygiene. He has multiple medical comorbidities that also contribute to fragile sleep. (2) PLMD (periodic limb movement disorder): Code(s): G47.61 - Periodic limb movement disorder Status: Acute Assessment and Plan: He had a periodic limb movement index of 124.6, a total limb movement index of 146.3. He had a periodic limb movement arousal index of 33.9 which is excessive and consistent with periodic limb movement disorder. He has no ferritin level in our system. Ferritin level is indicated to exclude iron deficiency anemia as a contributing factor. Ferritin should be 75 ng/mL or greater. If ferritin is below this, iron supplementation should be given to achieve ferritin of 75 ng/mL. There are nonpharmacologic methods to treat limb movements including daily exercise, stretching calf muscles before bed, avoiding excessive amounts of caffeine and alcohol, vitamin B supplementation, magnesium lotion massaged into legs before bed, and use of a weighted blanket. Pharmacologic therapy is very effective for restless legs syndrome and limb movements during sleep and may include [id number] voltage-gated calcium channel ligands such as gabapentin which is preferable to dopaminergic agents which can have augmentation. Data The data obtained during this sleep study is adequate for interpretation. Certification This sleep study has been reviewed by a board certified sleep medicine physician.
[2025-03-04 12:40] VITALS: BMI 21.7
== END 2025-01-27 08:36 | disposition home or self-care (01) ==
PROVIDERS: PCP Family Medicine; Visit Provider Nurse Practitioner Family
DX: G47.33 Obstructive sleep apnea (adult) (pediatric) (principal); G47.61 Periodic limb movement disorder
CPT/HCPCS: 95811

== ENCOUNTER 2025-01-28 12:23 | Outpatient (CLI) | payer MEDICARE, OTHER, SELFPAY ==
--- NOTE | ~2025-01-28 | US_ITS ---
ULTRASOUND ANKLE BRACHIAL INDEX Ordering provider: Regina Diego PA-C History: . I73.9 - Peripheral vascular disease, unspecified . Comparison: None. FINDINGS: Right brachial systolic blood pressure: 106 mmHg Left brachial systolic blood pressure: 102 mmHg Right ankle systolic blood pressure: 74 mmHg Left ankle systolic blood pressure: 111 mmHg Right ankle/arm index (ABBIE): 0.70. Left ankle/arm index (ABBIE): 1.05. Note regarding ABBIE: --Normal= 1.0 or slightly greater. --Claudication (moderate stenosis or occlusive state)= 0.6 to 0.9. --Rest pain (severe occlusive states)= 0.5 or less. IMPRESSION: Normal left ABBIE. Moderate stenosis on the right side. Clinical correlation and further evaluation advised. Reviewed, dictated and finalized at location A. IMPRESSION: Normal left ABBIE. Moderate stenosis on the right side. Clinical correlation and further evaluatio n advised.
== END 2025-01-28 12:24 | disposition home or self-care (01) ==
LOC: CHSIMG 12:24
PROVIDERS: PCP Family Medicine; Visit Provider Student in an Organized Health Care Education/Training Program
DX: I73.9 Peripheral vascular disease, unspecified (principal)
CPT/HCPCS: 93922

== ENCOUNTER 2025-02-20 12:11 | Outpatient (RCR) | payer MEDICARE, OTHER, SELFPAY ==
--- NOTE | 2025-02-20 12:25 | WNDPHOTO ---
PHOTO ONLY - See Nursing Notes and/ or assessments for documentation.
[2025-02-20 12:27] VITALS: BMI 20.3
== END 2025-04-01 10:39 | disposition home or self-care (01) ==
LOC: ANHWOC 12:11
PROVIDERS: PCP Family Medicine; Visit Provider Physician Assistant
DX: L89.309 Pressure ulcer of unspecified buttock, unspecified stage (principal); R21 Rash and other nonspecific skin eruption
CPT/HCPCS: 99213; G0463

== ENCOUNTER 2025-03-07 11:00 | Outpatient (RCR) | payer MEDICARE, OTHER, SELFPAY ==
[2024-12-20 16:23] VITALS: BP 112/73; PULSE 66; RESP 16; O2SAT 97; BMI 20.1
== END 2025-03-07 12:30 | disposition home or self-care (01) ==
PROVIDERS: PCP Family Medicine; Referring Provider Internal Medicine Critical Care Medicine; Visit Provider Internal Medicine Critical Care Medicine
DX: J44.9 Chronic obstructive pulmonary disease, unspecified (principal)
CPT/HCPCS: 94625

== ENCOUNTER 2025-03-08 12:04 | Outpatient (CLI) | payer MEDICARE, SELFPAY ==
--- OUTSIDE RECORDS SUMMARY | 2025-03-08 12:06 | XMS_ITS | Clinical Summary ---
Author Organization [facility] Address [address] [place] [id number] Care Team Providers Care Log Yard Derrick Operator Name Role Phone Unavailable Primary Care [...]
--- OUTSIDE RECORDS SUMMARY | 2025-03-08 12:06 | XMS_ITS | Clinical Summary ---
Author Organization [facility] Address [address] [facility] [place] [address] Phone Care Team Providers Care Title Department Manager Name Role Phone Unavailable Primary Care [...] Encounters Date Type Department Care Team Description 01/22/2025 External Device Data [facility] ABSTRACTION Provider, Abstract 01/01/2025 External Device Data [facility]STRACTION Provider, Abstract 12/27/2024 External Device Data [facility]STRACTION Provider, Abstract 12/26/2024 External Device Data [facility] ABSTRACTION Provider, Abstract 12/25/2024 External Device Data [facility] ABSTRACTION Provider, Abstract 12/07/2024 Abstract [facility] [address] [place] [address] Provider, Abstract from Last 3 Months Social History Tobacco Use Types Packs/Day Years Used Date Smoking Tobacco: Former Cigarettes Smokeless Tobacco: Never Sex and Gender Information Value Date Recorded Sex Assigned at Male 07/05/2024 10:59 AM INVENTORY SPECIALIST Legal Sex Male 1:57 PM INVENTORY SPECIALIST Gender Identity Male 07/05/2024 10:59 AM INVENTORY SPECIALIST Sexual Orientation Straight 07/05/2024 10 :59 AM INVENTORY SPECIALIST Last Filed Vital Signs Vital Sign Reading Time Taken Comments Blood Pressure 118/76 07/12/2024 10:06 AM INVENTORY SPECIALIST Pulse 83 07/12/2024 10:06 AM INVENTORY SPECIALIST Temperature - - Respiratory Rate - - Oxygen Saturation 97% 07/12/2024 10:06 AM INVENTORY SPECIALIST Inhaled Oxygen Concentration - - Weight 27.8 kg (61 lb 3.2 oz) 07/12/2024 10:06 A M INVENTORY SPECIALIST Height 182.9 cm (6') 07/12/2024 10:06 AM INVENTORY SPECIALIST Body Mass Index 8.3 07/12/2024 10:06 AM INVENTORY SPECIALIST Plan of Treatment Health Maintenance Due Date [...] 2012 Abdominal Aortic Aneurysm (AAA) Screening 01/27/2017 COVID-19 Vaccine (2 - season) 04/08/202412/2020 INFLUENZA VACCINE (#1) 2025 Insurance MEDICARE PART A AND B [employer]
--- OUTSIDE RECORDS SUMMARY | 2025-03-08 12:06 | XMS_ITS | Clinical Summary ---
Author Organization [facility] [address] Address [address] [place] [address] Care Team Providers Care Traffic Control Flagger Name Role Phone Liliana May MD Primary Care Provider Moose Singleton MD Unavailable [phone] Allergies Active Allergy Reactions Criticality Noted Date [...] Administration Dates Next Due Influenza, Unspecified 05/14/2021 [place]ig[place] (J&J) SARS-CoV-2 Vaccination 11/10/2020 Surgical History Surgery Date Site/Laterality Comments CARDIAC STENT PLACEMENT VASECTOMY BRONCHOSCOPY COLONOSCOPY Medical History Medical History Date Comments CAD (coronary artery disease) COPD (chronic obstructive pulmonary disease) HTN (hypertension) Atrial fibrillation (HCC) Pulmonary hypertension [...] Used Date Smoking Tobacco: Former Cigarettes 0.4 57.6 S tarted: 1968 Smokeless Tobacco: Never Tobacco [...] CDT Gender Identity Male 09/04/2024 11:22 AM FENDER MECHANIC Sexual Orientation Straight 09/04/2024 11 :22 AM FENDER MECHANIC Obstetrics History Last Filed Vital Signs Vital [...] season) 2024 07/15/2021, 11/10/2020 Influenza Vaccine (#1) 2025 , 05/14/2021, 05/05/2020, Additional history exists DTaP/Tdap/Td Vaccine (2 - Td or Tdap) 03/02/2026 03/02/2016 Pneumococcal vaccine 65+ Completed 02/28/2018, 05/2 04/2017 Zoster Vaccine Completed 05/06/2018, 02/28/2018 Abdominal Aortic Aneurysm (A AA) Screen Completed 10/01/2021 Medical Devices Implanted Type Area Securities Consultant Device Identifier Shelf Expiration Date Model / Serial / Lot Stent N/A: Heart Procedures Procedure Name Priority Date/Time Associated Diagnosis Comments CTA ABDOMINAL AORTA AND BILATERAL ILIOFEMORAL RUNOFF Schedule Routine, Read Routine (OP Routine) 10/01/2021 10:38 AM FENDER MECHANIC FOM (cancer of floor of mouth) ([facility]) from Last 3 Months or Most Recently Relevant to Health Maintenance Results * CTA Abdominal Aorta And Bilateral Iliofemoral Runoff (10/01/2021 10:38 AM FENDER MECHANIC) Anatomical Region Laterality Modality Body Bilateral Computed Tomogra phy 10/01/2021 11:2 6 AM FENDER MECHANIC Impressions 10/01/2021 2:02 PM FENDER MECHANIC 1. Right lower extremity: There is three-vessel [...] Samson Toro M.D. Narrative 10/01/2021 2:02 PM FENDER MECHANIC EXAMINATION: CT ANGIOGRAPHY OF THE ABDOMEN, PELVIS, [...] Recently Relevant to Health Maintenance Insurance MEDICARE [employer] MEDICARE FOR LIFE MEDICARE FOR LIFE Advance Directives For more information, please contact: [phone] * Full Code (Latest Code Status on File) Date Activated Date Inactivated Comments 10/16/2021 7:39 PM 10/18/2021 2:11 PM * Full Code Date Activated Date Inactivated Comments 10/09/2021 4:36 PM 10/11/2021 8:52 PM Care Teams Traffic Control Flagger Relationship Specialty Start Date End Date Liliana May MD [address] [place] [address] PCP - General Family Medicine 01/01/21 Moose Singleton MD [address] [place] [address] Consulting Physician Otolaryngology 09/27/21
--- OUTSIDE RECORDS SUMMARY | 2025-03-08 12:06 | XMS_ITS ---
Author Organization [facility] [address] Address [address] [place] [address] Care Team Providers Care Oil Rig Roughneck Name Role Phone Liliana May MD Primary Care Provider Moose Singleton MD Unavailable [phone] Active Problems Problem Noted Date Diagnosed Date [...]
--- OUTSIDE RECORDS SUMMARY | 2025-03-08 12:06 | XMS_ITS | Referral Summary ---
Author Organization [facility] [address] Address [address] [place] [address] Care Team Providers Care Disability Counselor Name Role Phone Liliana May MD Primary Care Provider Moose Singleton MD Unavailable [phone] Allergies Active Allergy Reactions Criticality Noted Date [...] CDT Gender Identity Male 09/04/2024 11:22 AM DIRECTOR OF STRATEGIC PARTNERSHIPS Sexual Orientation Straight 09/04/2024 11 :22 AM DIRECTOR OF STRATEGIC PARTNERSHIPS Last Filed Vital Signs Vital Sign Reading [...] on file Medical Devices Implanted Type Area Green Meat Grader Device Identifier Shelf Expiration Date Model / Serial / Lot Stent N/A: Heart Procedures Procedure Name Priority Date/Time Associated Diagnosis Comments CTA ABDOMINAL AORTA AND BILATERAL ILIOFEMORAL RUNOFF Schedule Routine, Read Routine (OP Routine) 10/01/2021 10:38 AM DIRECTOR OF STRATEGIC PARTNERSHIPS FOM (cancer of floor of mouth) ([facility]) from Last 3 Months or Most Recently Relevant to Health Maintenance Results * CTA Abdominal Aorta And Bilateral Iliofemoral Runoff (10/01/2021 10:38 AM DIRECTOR OF STRATEGIC PARTNERSHIPS) Anatomical Region Laterality Modality Body Bilateral Computed Tomogra phy 10/01/2021 11:2 6 AM DIRECTOR OF STRATEGIC PARTNERSHIPS Impressions 10/01/2021 2:02 PM DIRECTOR OF STRATEGIC PARTNERSHIPS 1. Right lower extremity: There is three-vessel [...] Samson Toro M.D. Narrative 10/01/2021 2:02 PM DIRECTOR OF STRATEGIC PARTNERSHIPS EXAMINATION: CT ANGIOGRAPHY OF THE ABDOMEN, PELVIS, [...] Recently Relevant to Health Maintenance Insurance MEDICARE [employer] MEDICARE [facility] MEDICARE FOR LIFE Advance Directives For more information, please contact: [phone] * Full Code (Latest Code Status on File) Date Activated Date Inactivated Comments 10/16/2021 7:39 PM 10/18/2021 2:11 PM * Full Code Date Activated Date Inactivated Comments 10/09/2021 4:36 PM 10/11/2021 8:52 PM Care Teams Disability Counselor Relationship Specialty Start Date End Date Liliana May MD [address] [facility] [address] [place] [address] PCP - General Family Medicine 01/01/21 Moose Singleton MD [address] [facility] [address] [place] [address] Consulting Physician Otolaryngology 09/27/21
[2025-03-08 13:37] LABS: Ferritin 15.50 ng/mL (11.1-264)
== END 2025-03-08 12:05 | disposition home or self-care (01) ==
LOC: CHSLAB 12:04
PROVIDERS: PCP Family Medicine; Visit Provider Nurse Practitioner Family
DX: I48.91 Unspecified atrial fibrillation (principal); G47.61 Periodic limb movement disorder; I48.92 Unspecified atrial flutter
CPT/HCPCS: 36415; 82728

== ENCOUNTER 2025-06-04 11:18 | Emergency (ER) | payer MEDICARE, OTHER, SELFPAY ==
--- NOTE | ~2025-06-04 | XR_ITS ---
EXAMINATION: XR chest 2V DATE: 06/04/2025 13:03 INDICATION: COPD/emphysema presenting with cough TECHNIQUE: PA and lateral views of the chest were obtained. COMPARISON: Chest radiograph dated 11/20/2024 FINDINGS: Hyperexpansion of lungs with flattening of the diaphragm and increased retrosternal clear space consistent with given history of emphysema. Moderate biapical pleural-parenchymal scarring. Unchanged cluster of calcified nodules in the right upper lobe consistent with old granulomatous disease. Mild linear discoid atelectasis/scarring at the lateral right mid lung zone and along the left lung base. No pulmonary edema, pleural effusion or pneumothorax. Heart size is normal. Mild thoracic dextrocurvature with moderate spondylosis. Mild thoracic kyphosis with chronic appearing mild anterior wedging of a couple mid thoracic vertebral bodies. Old healed left-sided rib fracture. IMPRESSION: 1. Stable appearance of emphysema with scattered atelectasis/scarring and cluster of calcified granulomas in the right upper lobe. No acute cardiopulmonary disease. Reviewed, dictated and finalized at location A. IMPRESSION: 1. Stable appearance of emphysema with scattered atelectasis/scarring and clust er of calcified granulomas in the right upper lobe. No acute cardiopulmonary di sease.
[2025-06-04 11:27] VITALS: BP 118/65; PULSE 72; RESP 22; TEMP 36.1; O2SAT 96
--- NOTE | 2025-06-04 12:06 | PC.NURSE ---
Pt urinated 50mLs in urinal prior to catheterization. Urine yellow and clear.
[2025-06-04] MEDS: LIDOCAINE 2% GEL UROJET 10 ML PKG MUCOUS MEM (12:09)
[2025-06-04 12:17] LABS: Add Urine Microscopic? NO; Appearance Urine Clear (Clear); Glucose Urine UA Negative (Negative); Leukocyte Esterase Ur Negative LEU/UL (Negative); Nitrate Urine Negative (Negative); Specific Grav Ur 1.011 (1.001-1.035)
--- NOTE | 2025-06-04 12:20 | ED.GENADULT ---
HPI - General Adult General Chief complaint: Urogenital-Male Stated complaint: I can't pee Time Seen by Provider: 06/04/25 11:39 History of Present Illness HPI narrative: 75-year-old male history of urinary retention that does take finasteride and tamsulosin present to the emergency department for evaluation for decreased urination. Patient states he went to bed at midnight was able to urinate prior to going to bed. Patient states that since he woke up at 4:30 a.m. he has had increased urinary retention and decreased ability to urinate. Patient does describe increased urinary pressure. Patient does have history of COPD emphysema has had increased cough and congestion. Related Data Home Medications ?Medication ?Instructions ?Recorded ?Confirmed ?Last Taken ?Type finasteride 5 mg tablet 5 mg PO DAILY 01/06/24 05/24/25 02/20/25 History Allergies Allergy/AdvReac Type Severity Reaction Status Date / Time lisinopril Allergy Unknown Cough Verified 05/24/25 14:44 Sulfa (Sulfonamide Allergy Cough Verified 05/24/25 14:44 Antibiotics) Review of Systems Review of Systems: All systems reviewed & are unremarkable except as noted in HPI and below PMFSH Past Medical History Medical History Pneumonia Acute upper respiratory infection Thrush of mouth and esophagus Chronic anticoagulation Oral cancer Completely excised, no additional treatment required. Septic shock Gastroesophageal reflux disease Coronary artery disease Chronic obstructive pulmonary disease Former smoker Chronic kidney disease, stage 3 Hypertension Heart failure with reduced ejection fraction Echocardiogram in April 2023 showed reduced LV function with an EF of 40 to 45% and abnormal diastolic function. Community acquired pneumonia, bilateral Chest pain Elevated d-dimer COPD exacerbation Sinusitis Myocardial infarction Evidence of infarct on stress test from September 2018 without reversible ischemia, EF of 37%. Pneumonia Osteoporosis Rectal polyp Dyslipidemia Persistent atrial fibrillation Vitamin D deficiency, unspecified Surgical History Surgical History History of tonsillectomy History of bilateral cataract extraction History of colonoscopy with polypectomy History of vasectomy Family History Family History Mother Patient's mother is Family history of malignant neoplasm Social History Social History Social History: Surrogate medical decision maker: Beulah Cross, spouse. Code status: Full code. Smoking packs per day: 1.5 Smoking cigarettes per day: 30.0 Years smoked: 50 Smoking pack-years: 75.00 Smoking status: Former smoker Tobacco type: cigarettes Second hand tobacco smoke exposure: Yes Smoking end date: 10/09/21 Alcohol intake: never Drinks per week: 0 Alcohol use details: Rare alcohol use in moderation. Substance use: never Substance use type: does not use Do You Feel Safe in your Home?: Yes Lack of Transportation: No Lack of Food: Never True Current Housing: I Have Housing Concerned About Future Housing: No Difficulty Paying Gas/Electric Bills: No Difficulty Paying for Meds: No Currently Unemployed: No Education: High School Diploma/GED Difficulty w/ Childcare or Family Care: No Living arrangements: with family Additional living arrangements comments: Lives with spouse and son in [place]. Occupation/Education: retired Additional occupation/education comments: Retired from the [employer] after 24 years. Worked for [employer] thereafter. Gender identity (if verbalized by the patient): Male Sexual Orientation (if Verbalized by the Patient): Straight or Heterosexual Spiritual care concerns: No Agree to blood products: Yes Exam Narrative: APPEARANCE: Well appearing, no pain, no distress, well-nourished. HEAD: normocephalic, atraumatic. EYES: PERRLA/EOMI, conjunctivae clear. NOSE: Normal no drainage EARS:TMS clear with good light reflex. THROAT: Pharynx clear, no exudate. NECK: Supple. No adenopathy, no masses. RESPIRATORY: Airway patent, respirations nonlabored. Clear to auscultation bilaterally, no rales, rhonchi, wheezing. CARDIOVASCULAR: Regular rate and rhythm without murmurs rubs or gallops. ABDOMINAL: Soft, nontender, nondistended, normal bowel sounds MUSCULOSKELETAL: Moves all extremities. Strength/ROM intact, No edema, No calf tenderness. NEURO: Alert. Cranial nerves II through XII intact. Grossly intact SKIN: Warm, dry. Normal Color Course Vital Signs Vital signs: Vital Signs Temperature 97 F L 06/04/25 11:27 Pulse Rate 72 06/04/25 11:27 Respiratory Rate 22 H 06/04/25 11:27 Blood Pressure 118/65 06/04/25 11:27 Pulse Oximetry 96 06/04/25 11:27 Oxygen Delivery Room Air 06/04/25 11:27 Temperature 97.5 F L 06/04/25 13:56 Pulse Rate 70 06/04/25 13:56 Respiratory Rate 22 H 06/04/25 13:56 Blood Pressure 102/67 06/04/25 13:56 Pulse Oximetry 93 06/04/25 13:56 Oxygen Delivery Room Air 06/04/25 11:27 Medical Decision Making MDM Narrative Medical decision making narrative: 75-year-old male presents emergency department for evaluation for urinary retention. Patient did have 720 of urine on his postvoid residual bladder scan. UA was negative for infection. Patient does have emphysema and COPD and did have increased cough and congestion. Patient's lungs were clear to auscultation and patient's x-ray of his chest showed no acute cardiopulmonary abnormality. Patient did feel improved with placement of the Conti catheter. Patient was encouraged close follow-up with [facility]. All questions concerns were addressed in patient family are comfortable the plan for discharge and close follow-up. Differential Diagnosis Differential Diagnosis: Urinary retention, COVID, RSV influenza, pneumonia, COPD, emphysema Vital Signs Vital Signs: Vital Signs Temperature 97 F L 06/04/25 11:27 Pulse Rate 72 06/04/25 11:27 Respiratory Rate 22 H 06/04/25 11:27 Blood Pressure 118/65 06/04/25 11:27 Pulse Oximetry 96 06/04/25 11:27 Oxygen Delivery Room Air 06/04/25 11:27 Temperature 97.5 F L 06/04/25 13:56 Pulse Rate 70 06/04/25 13:56 Respiratory Rate 22 H 06/04/25 13:56 Blood Pressure 102/67 06/04/25 13:56 Pulse Oximetry 93 06/04/25 13:56 Oxygen Delivery Room Air 06/04/25 11:27 Lab Data Lab results reviewed: Yes I reviewed the patient's lab results. Labs: Lab Results 06/04/25 Range/Units 12:08 Urine Color Yellow (Yellow) Urine Appearance Clear (Clear) Urine pH 7.0 (5.0-9.0) Ur Specific [place] 1.011 (1.001-1.035) Urine Protein Negative (Negative) mg/dL Urine Glucose (UA) Negative (Negative) mg/dL Urine Ketones Negative (Negative) mg/dL Ur Blood (Man) Negative (Negative) Urine Nitrate Negative (Negative) Urine Bilirubin Negative (Negative) Urine Urobilinogen 0.2 (<2.0) mg/dL Leukocyte Esterase Rfl Negative (Negative) REJI/UL Imaging Data Radiologist's impression: Impressions Chest X-Ray 06/04/25 13:06 IMPRESSION: 1. Stable appearance of emphysema with scattered atelectasis/scarring and cluster of calcified granulomas in the right upper lobe. No acute cardiopulmonary disease. Discharge Plan Discharge Clinical Impression: Acute urinary retention Patient Disposition: Home Condition: Stable Instructions: Antibiotic Form, Conti Catheter Placement and Care (ED) Additional Instructions: Conti catheter care as directed. Have close follow-up with your primary care physician and with Urology. If you have any worsening symptoms then please call or return to the emergency department. Patient Language: Belarusian Prescriptions: No Action loratadine 10 mg Tablet 10 mg PO QHS Qty: 30 0RF finasteride 5 mg tablet 5 mg PO DAILY magnesium oxide 400 mg (241.3 mg magnesium) Tablet 400 mg PO DAILY Qty: 30 0RF albuterol sulfate 90 mcg/actuation HFA aerosol inhaler 1 - 2 inh inhalation Q4-6H PRN (Reason: shortness of breath or wheezing) 90 Days Qty: 25.5 2RF escitalopram oxalate 10 mg tablet See Rx Instructions .ROUTE .COMPLEX Qty: 90 2RF Dose Instruction: TAKE ONE TABLET BY MOUTH DAILY Rx Instructions: TAKE ONE TABLET BY MOUTH DAILY ipratropium bromide 0.02 % solution 2.5 ml inhalation Q6H PRN (Reason: shortness of breath or wheezing) Qty: 75 3RF Eliquis 5 mg tablet See Rx Instructions .ROUTE .COMPLEX Qty: 180 3RF Dose Instruction: TAKE 1 TABLET TWICE A DAY (DUE FOR OFFICE VISIT) Rx Instructions: TAKE 1 TABLET TWICE A DAY (DUE FOR OFFICE VISIT) diltiazem HCl 180 mg capsule,extended release 24hr See Rx Instructions .ROUTE .COMPLEX Qty: 90 2RF Dose Instruction: TAKE ONE CAPSULE BY MOUTH DAILY Rx Instructions: TAKE ONE CAPSULE BY MOUTH DAILY tamsulosin 0.4 mg capsule 0.4 mg PO BID Qty: 60 5RF pravastatin 20 mg tablet See Rx Instructions .ROUTE .COMPLEX Qty: 90 2RF Dose Instruction: TAKE ONE TABLET BY MOUTH DAILY Rx Instructions: TAKE ONE TABLET BY MOUTH DAILY omeprazole 40 mg capsule,delayed release(DR/EC) 40 mg PO DAILY Qty: 100 1RF Trelegy Ellipta 200-62.5-25 mcg blister with device 1 inh inhalation DAILY Qty: 60 1RF roflumilast [Daliresp] 500 mcg tablet 500 mcg PO DAILY Qty: 90 1RF metoprolol tartrate 25 mg tablet See Rx Instructions .ROUTE .COMPLEX Qty: 60 5RF Dose Instruction: TAKE ONE TABLET BY MOUTH TWICE A DAY Rx Instructions: TAKE ONE TABLET BY MOUTH TWICE A DAY eszopiclone 1 mg tablet 1 mg PO QHS PRN (Reason: sleep) Qty: 30 0RF Follow-up/Referrals: Sammy Watson MD [Primary Care Provider, Family Practice]
--- NOTE | 2025-06-04 12:29 | PC.NURSE ---
ED respiratory notified of breathing treatment.
[2025-06-04] MEDS: ALBUTEROL SULFATE NEB 2.5 MG/3 ML INH 5 MG INHALATION (12:33)
[2025-06-04 12:34] VITALS: PULSE 72; RESP 20
[2025-06-04 12:44] VITALS: PULSE 75; RESP 20
--- OUTSIDE RECORDS SUMMARY | 2025-06-04 13:24 | XMS_ITS | Clinical Summary ---
Author [place] [facility] [place] [address] Address [address] [place] [address] Care Team Providers Care Program Production Specialist Name Role Phone Liliana May MD Primary Care Provider Moose Singleton MD Unavailable [phone] Allergies Active Allergy Reactions Criticality Noted Date [...] 2 (two) times a day 2 Active omeprazole (PriLOSEC) 40 mg capsule [...] pravastatin (PRAVACHOL) 20 mg tablet 4 Active ibandronate (BONIVA) 150 mg tablet Take 1 tablet (150 mg total) by mouth every 30 (thirty) days Take in AM with glass of water prior to food, don't lie down for 30 minutes. Active roflumilast (DALIRESP) 500 mcg tablet Take by mouth daily Active escitalopram (LEXAPRO) 10 mg tablet Take by mouth daily Active magnesium oxide 400 mg magnesium capsule Take 1 capsule by mouth daily Active metoprolol tartrate (LOPRESSOR) 25 mg immediate release tablet 5 Active loratadine 10 mg capsule Take by mouth Active ferrous sulfate 325 mg (65 mg of elemental iron) tablet Take by mouth daily Active Active Problems Problem Noted Date Diagnosed Date Primary hypertension 04/05/2025 Assessment & Plan (04/05/2025 10:45 AM CDT): Chronic and stable. Continue metoprolol, losartan Mixed hyperlipidemia 04/05/2025 Assessment & Plan (04/05/2025 10:45 AM CDT): Chronic and stable. Continue pravastatin Atherosclerosis of [place] ar teries of extremities with intermittent claudication, right leg 04/05/2025 Assessment & Plan (04/05/2025 10:57 AM CDT): Impression: Patient complains of numbness to bilateral lower extremities with his right lower extremity worse than the left that occurs during ambulation intermittently. Patient is currently in cardiac rehab. Patient underwent an ABBIE at an outside facility which showed ABIs of 0.7 to the right lower extremity in normal ABIs to left lower extremity. Patient denies any ischemic rest pain or ulcerations to his lower extremity. Patient underwent a lower extremity arterial Doppler at the office which revealed biphasic to monophasic waveforms to the right lower extremity and biphasic waveforms at the left posterior tibial level. Plan: As patient's symptoms are not limiting, no surgical interventions are recommended. -Recommend patient to continue ambulating. Patient is currently undergoing cardiac rehab and reports therapist he is currently working with stated she also assist with vascular rehab. Patient's requests vascular rehab where is currently doing cardiac rehab. He admits that he will not walk on his own however going to a facility where they will make him exercise he's more to comply with. We will refer patient to start on hospital for vascular rehabilitation. We will also have patient follow-up in 6 months for re-evaluation with repeat lower extremity arterial Doppler. Encouraged patient if symptoms worsen or develops nonhealing ulcerations to call for appointment. Patient voices understanding. Oral bleeding 10/16/2021 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 Overview (10/22/2021): NAME OF PROCEDURE (Puram 10/09/2021): Composite resection (ventral tongue, FOM, and marginal mandibulectomy) Encounters Date Type Department Care Team Description 04/03/2025 11:00 AM CDT Ancillary Procedure [facility] Vascular and Vein Surgery at [address] [place] [address] 04/03/2025 9:30 AM CDT Office Visit [facility] V[facility] at [address] [place] [phone] Tasia Rosa NP Atherosclerosis of [place] arteries of extremities with intermittent claudication, right leg (Primary Dx); Primary hypertension; Mixed hyperlipidemia 04/03/2025 Orders Only [facility] at [address] [place] [phone] Scot Davies MD Atherosclerosis of [place] arteries of extremities with intermittent claudication, right leg (Primary Dx) from Last 3 Months Immunizations Immunization Administration Dates Next Due Influenza, Unspecified 05/14/2021 [employer] (J&J) SARS-CoV-2 Vaccination 11/10/2020 Surgical History Surgery [...] Used Date Smoking Tobacco: Former Cigarettes 0.4 57.8 S tarted: 1968 Smokeless Tobacco: Never Tobacco [...] CDT Gender Identity Male 09/04/2024 11:22 AM AUTOMATIC LATHE SETTER Sexual Orientation Straight 09/04/2024 11 :22 AM AUTOMATIC LATHE SETTER Obstetrics History Last Filed Vital Signs Vital Sign Reading Time Taken Comments Blood Pressure 112/72 04/03/2025 9:45 AM CDT Pulse 74 04/03/2025 9:45 AM CDT Temperature 36.7 C (98.1 F) 10/18/2021 7:00 AM CDT Respiratory Rate 20 10/18/2021 7:00 AM CDT Oxygen Saturation 97% 04/03/2025 9:45 AM CDT Inhaled Oxygen Concentration - - Weight 68 kg (150 lb) 04/03/2025 9:45 AM CDT Height 182.9 cm (6') 04/03/2025 9:45 AM CDT Body Mass Index 20.34 04/03/2025 9:45 AM CDT Plan of Treatment Health Maintenance Due Date Last Done Comments Colon Cancer Screening-Colonoscopy 1950 Depression Screening 1950 Hepatitis C Screening 1950 Hepatitis B Screening 01/27/1970 Well Visit 65+ 01/27/2017 Fall Risk Assessment 10/18/2022 10/18/2021 Covid-19 Vaccine (3 - 2024-2 6 season) 2025 07/15/2021, 11/10/2020 Influenza Vaccine (#1) 2025 , 05/14/2021, 05/05/2020, Additional history exists DTaP/Tdap/Td Vaccine (2 - Td or Tdap) 03/02/2026 03/02/2016 Pneumococcal vaccine 65+ Completed 02/28/2018, 12/07 Zoster Vaccine Completed 05/06/2018, 02/28/2018 Abdominal Aortic Aneurysm (A AA) Screen Completed 10/01/2021 Medical Devices Implanted Type Area Broacher Device Identifier Shelf Expiration Date Model / Serial / Lot Stent N/A: Heart Procedures Procedure Name Priority Date/Time Associated Diagnosis Comments US ARTERIAL DOPPLER LOWER EXTREMITY BILATERAL Schedule Routine, Read Routine (OP Routine) 04/03/2025 11:28 AM CDT Atherosclerosis of [place] arteries of extremities with intermittent claudication, right leg CTA ABDOMINAL AORTA AND BILATERAL ILIOFEMORAL RUNOFF Schedule Routine, Read Routine (OP Routine) 10/01/2021 10:38 AM AUTOMATIC LATHE SETTER 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 [address] Lower Extremity Arterial Doppler Report Patient Name: CHILO JI E : 1950 Study Date: 04/03/2025 10:11:00 AM Sex: M Complaint Adjuster: Gay Corbett RVT Location: [facility] Ref Provider: TASIA ROSA Quality: Adequate Order Provider: TASIA ROSA PROCEDURES: Arterial Report: Bilateral lower extremity arterial Doppler exam at rest. INDICATIONS: R>L claudication. HISTORY: HTN. HLD. CAD S/P stent. Former smoker. COMPARISONS: CTA 10/01/21: RLE- mild to mod SFA, LLE- mod SFA. MEASUREMENTS: Right Value Left Value Rt Brachial Pressure 123 mmHg Lt Brachial Pressure 126 mmHg Rt High Thigh Pressure 101 mmHg Lt High Thigh Pressure 123 mmHg Rt Low Thigh Pressure 103 mmHg Lt Low Thigh Pressure 111 mmHg Rt Calf Pressure 87 mmHg Lt Calf Pressure 108 mmHg Rt OPTICAL EFFECTS LINE UP PERSON Pressure 80 mmHg Lt OPTICAL EFFECTS LINE UP PERSON Pressure 111 mmHg Rt DPA Pressure 66 mmHg Lt DPA Pressure 113 mmHg Rt High Thigh Index 0.8 Lt High Thigh Index 0.98 Rt Low Thigh Index 0.82 Lt Low Thigh Index 0.88 Rt Calf Index 0.69 Lt Calf Index 0.86 Rt PT ABBIE Resting 0.63 Lt PT ABBIE Resting 0.88 Rt DP ABBIE Resting 0.52 Lt DP ABBIE Resting 0.9 FINDINGS: Right Common Femoral Artery Analysis: The common femoral artery waveform is triphasic. Right Popliteal Artery Analysis: The popliteal waveform is monophasic. Right Posterior Tibial Artery Analysis: The posterior tibial waveform is monophasic. Right Anterior Tibial Artery Analysis: The anterior tibial waveform is monophasic. Left Common Femoral Artery Analysis: The common femoral artery waveform is triphasic. Left Popliteal Artery Analysis: The popliteal waveform is triphasic. Left Posterior Tibial Artery Analysis: The posterior tibial waveform is triphasic. Left Anterior Tibial Artery Analysis: The anterior tibial waveform is monophasic. CONCLUSIONS: 1. Ankle-brachial index of 0.5-0.8 is consistent with claudication and a moderate occlusive arterial disease in the right lower extremity. 2. Ankle-brachial index of 0.8-0.9 is consistent with mild occlusive arterial disease in the left lower extremity. 3. There is evidence of right leg arterial insufficiency at the level of aorta- iliac, common femoral (inflow) arteries. 4. There is evidence of left leg arterial insufficiency at the level of anterior tibial artery. ATTESTATION: I have reviewed and interpreted the pertinent images and measurements of this study. I attest to the conclusions in the final report that is provided above. Electronically Signed By: Scot Davies MD 04/04/2025 12:47:35 PM CDT Procedure Note Scot Davies MD - 04/04/2025 Vascular & Vein Surgery [address] [place] [id number] Lower Extremity Arterial Doppler Report Patient Name: CHILO JI E : 1950 Study Date: 04/03/2025 10:11:00 AM Sex: M Complaint Adjuster: Gay Corbett RVT Location: [facility] Provider: TASIA ROSA Quality: Adequate Order Provider: TASIA ROSA PROCEDURES: Arterial Report: Bilateral lower extremity arterial Doppler exam at rest. INDICATIONS: R>L claudication. HISTORY: HTN. HLD. CAD S/P stent. Former smoker. COMPARISONS: CTA 10/01/21: RLE- mild to mod SFA, LLE- mod SFA. MEASUREMENTS: Right Value Left Value Rt Brachial Pressure 123 mmHg Lt Brachial Pressure 126 mmHg Rt High Thigh Pressure 101 mmHg Lt High Thigh Pressure 123 mmHg Rt Low Thigh Pressure 103 mmHg Lt Low Thigh Pressure 111 mmHg Rt Calf Pressure 87 mmHg Lt Calf Pressure 108 mmHg Rt OPTICAL EFFECTS LINE UP PERSON Pressure 80 mmHg Lt OPTICAL EFFECTS LINE UP PERSON Pressure 111 mmHg Rt DPA Pressure 66 mmHg Lt DPA Pressure 113 mmHg Rt High Thigh Index 0.8 Lt High Thigh Index 0.98 Rt Low Thigh Index 0.82 Lt Low Thigh Index 0.88 Rt Calf Index 0.69 Lt Calf Index 0.86 Rt PT ABBIE Resting 0.63 Lt PT ABBIE Resting 0.88 Rt DP ABBIE Resting 0.52 Lt DP ABBIE Resting 0.9 FINDINGS: Right Common Femoral Artery Analysis: The common femoral artery waveform is triphasic. Right Popliteal Artery Analysis: The popliteal waveform is monophasic. Right Posterior Tibial Artery Analysis: The posterior tibial waveform is monophasic. Right Anterior Tibial Artery Analysis: The anterior tibial waveform is monophasic. Left Common Femoral Artery Analysis: The common femoral artery waveform is triphasic. Left Popliteal Artery Analysis: The popliteal waveform is triphasic. Left Posterior Tibial Artery Analysis: The posterior tibial waveform is triphasic. Left Anterior Tibial Artery Analysis: The anterior tibial waveform is monophasic. CONCLUSIONS: 1. Ankle-brachial index of 0.5-0.8 is consistent with claudication and amoderate occlusive arterial disease in the right lower extremity. 2. Ankle-brachial index of 0.8-0.9 is consistent with mild occlusivearterial disease in the left lower extremity. 3. There is evidence of right leg arterial insufficiency at the level ofaorta- iliac, common femoral (inflow) arteries. 4. There is evidence of left leg arterial insufficiency at the level ofanterior tibial artery. ATTESTATION: I have reviewed and interpreted the pertinent images and measurements ofthis study. I attest to the conclusions in the final report that is provided above. Electronically Signed By: Scot Davies MD 04/04/2025 12:47:35 PM CDT Tasia Rosa CHEMICAL WASTE MANAGEMENT TECHNICIAN IMG US PROCEDURES Final R esult * CTA Abdominal Aorta And Bilateral Iliofemoral Runoff (10/01/2021 10:38 AM AUTOMATIC LATHE SETTER) Anatomical Region Laterality Modality Body Bilateral Computed Tomogra phy 10/01/2021 11:2 6 AM AUTOMATIC LATHE SETTER Impressions 10/01/2021 2:02 PM AUTOMATIC LATHE SETTER 1. Right lower extremity: There is three-vessel [...] Samson Toro M.D. Narrative 10/01/2021 2:02 PM AUTOMATIC LATHE SETTER EXAMINATION: CT ANGIOGRAPHY OF THE ABDOMEN, PELVIS, [...] Recently Relevant to Health Maintenance Insurance MEDICARE [employer] MEDICARE FOR LIFE MEDICARE FOR LIFE Advance Directives For more information, please contact: [phone] * Full Code (Latest Code Status on File) Date Activated Date Inactivated Comments 10/16/2021 7:39 PM 10/18/2021 2:11 PM * Full Code Date Activated Date Inactivated Comments 10/09/2021 4:36 PM 10/11/2021 8:52 PM Care Teams Program Production Specialist Relationship Specialty Start Date End Date Liliana May MD [address] [place] [address] PCP - General Family Medicine 01/01/21 Moose Singleton MD [address] [place] [address] Consulting Physician Otolaryngology 09/27/21
--- OUTSIDE RECORDS SUMMARY | 2025-06-04 13:24 | XMS_ITS | Clinical Summary ---
Author Organization [facility] Address [address] [place] [id number] Care Team Providers Care Medicare Interviewer Name Role Phone Unavailable Primary Care Provider [...] of 2) 01/27/2002 COVID-19 Vaccine ( - 2024-2 6 season) 2025 Influenza Adult (#1) 2025 RSV Immunization or 60+ Years (1 - 1-dose 75+ series) 01/27/2027 Hepatitis A Vaccines Aged Out No long er eligible based on patient's age to complete this topic Meningococcal B Vaccine Aged Out No l onger eligible based on patient's age to complete this topic Meningococcal Vaccine Aged Out No hunter ananth eligible based on patient's age to complete this topic RSV Immunizations Under 20 Months Aged Out No longer eligible based on patient's age to complete this topic
--- OUTSIDE RECORDS SUMMARY | 2025-06-04 13:24 | XMS_ITS | Clinical Summary ---
Author Organization [facility] Address [address] [place] [address] Phone Care Team Providers Care Hotel Operations Manager Name Role Phone Unavailable Primary Care [...] Encounters Date Type Department Care Team Description 05/14/2025 External Device Data STL ABSTRACTION Provider, Abstract 04/23/2025 External Device Data ST[place] ABSTRACTION Provider, Abstract 04/16/2025 External Device Data [place] ABSTRACTION Provider, Abstract 03/26/2025 External Device Data [place] ABSTRACTION Provider, Abstract 03/12/2025 External Device Data ST[place] ABSTRACTION Provider, Abstract from Last 3 Months Social History Tobacco Use Types Packs/Day Years Used Date Smoking Tobacco: Former Cigarettes Smokeless Tobacco: Never Sex and Gender Information Value Date Recorded Sex Assigned at Male 07/05/2024 10:59 AM SURVEY OPERATIONS DIRECTOR Legal Sex Male 1:57 PM SURVEY OPERATIONS DIRECTOR Gender Identity Male 07/05/2024 10:59 AM SURVEY OPERATIONS DIRECTOR Sexual Orientation Straight 07/05/2024 10 :59 AM SURVEY OPERATIONS DIRECTOR Last Filed Vital Signs Vital Sign Reading Time Taken Comments Blood Pressure 118/76 07/12/2024 10:06 AM SURVEY OPERATIONS DIRECTOR Pulse 83 07/12/2024 10:06 AM SURVEY OPERATIONS DIRECTOR Temperature - - Respiratory Rate - - Oxygen Saturation 97% 07/12/2024 10:06 AM SURVEY OPERATIONS DIRECTOR Inhaled Oxygen Concentration - - Weight 27.8 kg (61 lb 3.2 oz) 07/12/2024 10:06 A M SURVEY OPERATIONS DIRECTOR Height 182.9 cm (6') 07/12/2024 10:06 AM SURVEY OPERATIONS DIRECTOR Body Mass Index 8.3 07/12/2024 10:06 AM SURVEY OPERATIONS DIRECTOR Plan of Treatment Health Maintenance Due Date Last Done Comments DTAP/TDAP/TD VACCINES (1 - Tdap) 01/27/1971 PNEUMOCOCCAL VACCINE 50+ YEARS (1 of 2 - PCV) 01/27/19 71 COLORECTAL SCREENING 01/27/1997 Colorectal Cancer Screening 01/27/1997 FIT-DNA Q 3 years 01/27/1997 FIT/FOBT Q 1 year 01/27/1997 Flex Sig/CT Colonography Q 5 years 01/27/1997 RSV VACCINE (60+ or ) (1 - Risk 50-74 years 1-dose series) 01/27/2002 ZOSTER VACCINE (1 of 2) 01/27/2002 Abdominal Aortic Aneurysm (AAA) Screening 01/27/2017 INFLUENZA VACCINE (#1) 2025 COVID-19 Vaccine (2 - season) 04/08/202512/2020 Insurance MEDICARE PART A AND B [employer]
--- OUTSIDE RECORDS SUMMARY | 2025-06-04 13:24 | XMS_ITS ---
Author Organization [facility] [address] Address [address] [place] [address] Care Team Providers Care Gang Sawyer Name Role Phone Liliana May MD Primary Care Provider Moose Singleton MD Unavailable [phone] Active Problems Problem Noted Date Diagnosed Date Primary hypertension 04/05/2025 Assessment & Plan (04/05/2025 10:45 AM CDT): Chronic and stable. Continue metoprolol, losartan Mixed hyperlipidemia 04/05/2025 Assessment & Plan (04/05/2025 10:45 AM CDT): Chronic and stable. Continue pravastatin Atherosclerosis of [place] ar teries of extremities with intermittent claudication, [...]
--- NOTE | 2025-06-04 13:55 | PC.NURSE ---
750 mL of clear yellow urine drained from catheter bag prior to pt. d/c. Pt. offered a leg but declined.
[2025-06-04 13:56] VITALS: BP 102/67; PULSE 70; RESP 22; TEMP 36.4; O2SAT 93
--- OUTSIDE RECORDS SUMMARY | 2025-06-04 14:07 | XMS_ITS ---
Author Organization [facility] [address] Address [address] [place] [address] Care Team Providers Care Coffee Roaster Name Role Phone Liliana May MD Primary Care Provider Moose Singleton MD Unavailable [phone] Active Problems Problem Noted Date Diagnosed Date Primary hypertension 04/05/2025 Assessment & Plan (04/05/2025 10:45 AM CDT): Chronic and stable. Continue metoprolol, losartan Mixed hyperlipidemia 04/05/2025 Assessment & Plan (04/05/2025 10:45 AM CDT): Chronic and stable. Continue pravastatin Atherosclerosis of [place] ar teries of extremities with intermittent claudication, [...]
--- OUTSIDE RECORDS SUMMARY | 2025-06-04 14:07 | XMS_ITS | Clinical Summary ---
Author Organization [facility] Address [address] [place] [address] Phone Care Team Providers Care Clammer Name Role Phone Unavailable Primary Care Provider [...] Sex Assigned at Male 07/05/2024 10:59 AM STAFFING ACCOUNT MANAGER Legal Sex Male 1:57 PM STAFFING ACCOUNT MANAGER Gender Identity Male 07/05/2024 10:59 AM STAFFING ACCOUNT MANAGER Sexual Orientation Straight 07/05/2024 10 :59 AM STAFFING ACCOUNT MANAGER Last Filed Vital Signs Vital Sign Reading Time Taken Comments Blood Pressure 118/76 07/12/2024 10:06 AM STAFFING ACCOUNT MANAGER Pulse 83 07/12/2024 10:06 AM STAFFING ACCOUNT MANAGER Temperature - - Respiratory Rate - - Oxygen Saturation 97% 07/12/2024 10:06 AM STAFFING ACCOUNT MANAGER Inhaled Oxygen Concentration - - Weight 27.8 kg (61 lb 3.2 oz) 07/12/2024 10:06 A M STAFFING ACCOUNT MANAGER Height 182.9 cm (6') 07/12/2024 10:06 AM STAFFING ACCOUNT MANAGER Body Mass Index 8.3 07/12/2024 10:06 AM STAFFING ACCOUNT MANAGER Plan of Treatment Health Maintenance Due Date [...] 04/08/202512/2020 Insurance MEDICARE PART A AND B [employer]
--- OUTSIDE RECORDS SUMMARY | 2025-06-04 14:07 | XMS_ITS | Clinical Summary ---
Author Organization [facility] Address [address] [place] [address] Care Team Providers Care Hot Tar Roofer Helper Name Role Phone Unavailable Primary Care Provider [...]
--- OUTSIDE RECORDS SUMMARY | 2025-06-04 14:07 | XMS_ITS | Clinical Summary ---
Author Organization [facility] [address] Address [address] [place] [address] Care Team Providers Care Medical Records Custodian Name Role Phone Liliana May MD Primary Care Provider Moose Singleton MD Unavailable [phone] Allergies Active Allergy Reactions Criticality Noted Date [...] Chronic and stable. Continue pravastatin Atherosclerosis of [place] ar teries of extremities with intermittent claudication, [...] Description 04/03/2025 11:00 AM CDT Ancillary Procedure [facility] [place] [facility] Vascular and Vein Surgery at [address] [place] [address] 04/03/2025 9:30 AM CDT Office Visit [facility] Vascular at [address] [place] [phone] Tasia Rosa NP Atherosclerosis of [place] arteries of extremities with intermittent claudication, right leg (Primary Dx); Primary hypertension; Mixed hyperlipidemia 04/03/2025 Orders Only [facility] Vascular at [address] [place] [phone] Scot Davies MD Atherosclerosis of [place] arteries of extremities with intermittent claudication, right leg (Primary Dx) from Last 3 Months Immunizations Immunization Administration Dates Next Due Influenza, Unspecified 05/14/2021 [employer] ([employer]) SARS-CoV-2 Vaccination 11/10/2020 Surgical History Surgery [...] Identity Male 09/04/2024 11:22 AM DIRECTOR OF SALES Sexual Orientation Straight 09/04/2024 11 :22 AM DIRECTOR OF SALES Obstetrics History Last Filed Vital Signs Vital [...] Completed 10/01/2021 Medical Devices Implanted Type Area Combatant Diver Officer Device Identifier Shelf Expiration Date Model / Serial / Lot Stent N/A: Heart Procedures Procedure Name Priority Date/Time Associated Diagnosis Comments US ARTERIAL DOPPLER LOWER EXTREMITY BILATERAL Schedule Routine, Read Routine (OP Routine) 04/03/2025 11:28 AM CDT Atherosclerosis of [place] arteries of extremities with intermittent claudication, right leg CTA ABDOMINAL AORTA AND BILATERAL ILIOFEMORAL RUNOFF Schedule Routine, Read Routine (OP Routine) 10/01/2021 10:38 AM DIRECTOR OF SALES 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 [address] Lower Extremity Arterial Doppler Report Patient Name: CHILO JI E : 1950 Study Date: 04/03/2025 10:11:00 AM Sex: M Collarette Separator: Gay Corbett RVT Location: [facility] Ref Provider: [...] mmHg Lt Calf Pressure 108 mmHg Rt RUST PROOFER Pressure 80 mmHg Lt RUST PROOFER Pressure 111 mmHg Rt DPA Pressure 66 [...] MD - 04/04/2025 Vascular & Vein Surgery [address] [place] [address] Lower Extremity Arterial Doppler Report Patient Name: CHILO JI E : 1950 Study Date: 04/03/2025 10:11:00 AM Sex: M Collarette Separator: Gay Corbett RVT Location: [facility] Provider: TASIA ROSA Quality: Adequate Order Provider: [...] mmHg Lt Calf Pressure 108 mmHg Rt RUST PROOFER Pressure 80 mmHg Lt RUST PROOFER Pressure 111 mmHg Rt DPA Pressure 66 [...] MD 04/04/2025 12:47:35 PM CDT Tasia Rosa INVISIBLE BRACES ORTHODONTIST IMG US PROCEDURES Final R esult * CTA Abdominal Aorta And Bilateral Iliofemoral Runoff (10/01/2021 10:38 AM DIRECTOR OF SALES) Anatomical Region Laterality Modality Body Bilateral Computed Tomogra phy 10/01/2021 11:2 6 AM DIRECTOR OF SALES Impressions 10/01/2021 2:02 PM DIRECTOR OF SALES 1. Right lower extremity: There is three-vessel [...] M.D. Narrative 10/01/2021 2:02 PM DIRECTOR OF SALES EXAMINATION: CT ANGIOGRAPHY OF THE ABDOMEN, PELVIS, [...] it. Electronically signed by: Samson Toro M.D. Mosoe Singleton MD IMG CT PROCEDURES Ernestine l Result from Last 3 Months or Most Recently Relevant to Health Maintenance Insurance MEDICARE [employer] MEDICARE FOR LIFE MEDICARE FOR LIFE Advance Directives For more information, please contact: [phone] * Full Code (Latest Code Status on File) Date Activated Date Inactivated Comments 10/16/2021 7:39 PM 10/18/2021 2:11 PM * Full Code Date Activated Date Inactivated Comments 10/09/2021 4:36 PM 10/11/2021 8:52 PM Care Teams Medical Records Custodian Relationship Specialty Start Date End Date Liliana May MD [address] [place] [address] PCP - General Family Medicine 01/01/21 Moose Singleton MD [address] [place] [address] Consulting Physician Otolaryngology 09/27/21
== END 2025-06-04 14:00 | disposition home or self-care (01) ==
PROVIDERS: Emergency Provider Emergency Medicine; PCP Family Medicine
DX: R33.9 Retention of urine, unspecified (principal); J43.9 Emphysema, unspecified; I25.10 Atherosclerotic heart disease of native coronary artery without angina pectoris; I12.9 Hypertensive chronic kidney disease with stage 1 through stage 4 chronic kidney disease, or unspecified chronic kidney disease; N18.30 Chronic kidney disease, stage 3 unspecified; I13.0 Hypertensive heart and chronic kidney disease with heart failure and stage 1 through stage 4 chronic kidney disease, or unspecified chronic kidney disease; I50.9 Heart failure, unspecified; I25.2 Old myocardial infarction; I48.19 Other persistent atrial fibrillation; E55.9 Vitamin D deficiency, unspecified; M81.0 Age-related osteoporosis without current pathological fracture; K21.9 Gastro-esophageal reflux disease without esophagitis; Z86.0100 Personal history of colon polyps, unspecified; Z87.01 Personal history of pneumonia (recurrent); Z87.891 Personal history of nicotine dependence; Z98.42 Cataract extraction status, left eye; Z98.41 Cataract extraction status, right eye; Z79.899 Other long term (current) drug therapy; Z79.01 Long term (current) use of anticoagulants
CPT/HCPCS: 51702; 71046; 81003; 94640; 99283

== ENCOUNTER 2025-06-21 13:51 | Outpatient (CLI) | payer MEDICARE, OTHER, SELFPAY ==
[2025-06-21 14:05] LABS: Hematocrit 38.8 % (37.0-46.0); Hemoglobin 12.1 g/dL (12.4-15.3); Immature Granulocyte Percent A 0.5 % (0.0-0.0); Lymphocytes Absolute Auto 2.35 K/mm3 (1.10-4.50); Mean Corpuscular HGB Conc 31.2 g/dL (32-36); Mean Corpuscular Hemoglobin 26.7 pg (27.0-31.0); Mean Corpuscular Volume 85.5 fL (78.0-102.0); Nucleated Red Blood Cells Absolute Auto 0.00 K/mm3 (0.00-0.00); Nucleated Red Blood Cells Perc 0.0 % (0-0.0); Platelet Count Result 346 K/mm3 (150-420); Red Blood Count 4.54 M/mm3 (4.70-6.10); White Blood Count 14.1 K/mm3 (4.8-10.8)
[2025-06-21 14:47] LABS: Alanine Aminotransferase 16 U/L (6-50); Albumin Level 4.0 g/dL (3.5-5.1); Alkaline Phosphatase 90 U/L (38-126); Anion Gap 11 mmol/L (4-12); Aspartate Amino Transferase 23 U/L (17-59); Blood Urea Nitrogen 18 mg/dL (9-20); Calcium 9.5 mg/dL (8.4-10.2); Carbon Dioxide 27 mmol/L (22-30); Chloride 103 mmol/L (98-107); Cholesterol 162 mg/dL (0-200); Estimated Glomerular Filt Rate > 60; Glucose 108 mg/dL (65-110); HDL Direct 53 mg/dL; Magnesium 1.7 mg/dL (1.6-2.3); Osmolality Calculated 294 mOsm/kg (285-295); Potassium 4.4 mmol/L (3.4-5.0); Sodium 141 mmol/L (137-145); Total Protein 6.8 g/dL (6.3-8.2); Triglycerides 78 mg/dL (<150)
--- OUTSIDE RECORDS SUMMARY | 2025-06-21 18:24 | XMS_ITS | Clinical Summary ---
Author Organization [facility] Address [address] [place] [address] Care Team Providers Care Senior Java Ui Developer Name Role Phone Unavailable Primary Care Provider [...]
[2025-06-25 13:44] LABS: Bilirubin,Total 0.5 mg/dL (0.2-1.3)
== END 2025-06-21 13:52 | disposition home or self-care (01) ==
PROVIDERS: PCP Family Medicine; Visit Provider Physician Assistant
DX: R79.0 Abnormal level of blood mineral (principal); I10 Essential (primary) hypertension; I50.22 Chronic systolic (congestive) heart failure; E78.5 Hyperlipidemia, unspecified; E55.9 Vitamin D deficiency, unspecified
CPT/HCPCS: 36415; 80053; 80061; 82306; 83735; 85025

== ENCOUNTER 2025-06-27 12:35 | Outpatient (CLI) | payer MEDICARE, OTHER, SELFPAY ==
[2025-06-27 13:34] LABS: Iron 52 ug/dL (49-181)
[2025-06-27 13:44] LABS: Percent Iron Saturation 17 % (20-50)
[2025-06-27 14:24] LABS: Vitamin B12 583.0 pg/mL (239-931)
--- OUTSIDE RECORDS SUMMARY | 2025-06-27 14:56 | XMS_ITS | Clinical Summary ---
Author Organization [facility] Address [address] [place] [address] Phone Care Team Providers Care Physician'S Assistant Name Role Phone Unavailable Primary Care Provider [...] Sex Assigned at Male 07/05/2024 10:59 AM FUNERAL HOME ATTENDANT Legal Sex Male 1:57 PM FUNERAL HOME ATTENDANT Gender Identity Male 07/05/2024 10:59 AM FUNERAL HOME ATTENDANT Sexual Orientation Straight 07/05/2024 10 :59 AM FUNERAL HOME ATTENDANT Last Filed Vital Signs Vital Sign Reading Time Taken Comments Blood Pressure 118/76 07/12/2024 10:06 AM FUNERAL HOME ATTENDANT Pulse 83 07/12/2024 10:06 AM FUNERAL HOME ATTENDANT Temperature - - Respiratory Rate - - Oxygen Saturation 97% 07/12/2024 10:06 AM FUNERAL HOME ATTENDANT Inhaled Oxygen Concentration - - Weight 27.8 kg (61 lb 3.2 oz) 07/12/2024 10:06 A M FUNERAL HOME ATTENDANT Height 182.9 cm (6') 07/12/2024 10:06 AM FUNERAL HOME ATTENDANT Body Mass Index 8.3 07/12/2024 10:06 AM FUNERAL HOME ATTENDANT Plan of Treatment Health Maintenance Due Date [...] 01/27/2017 INFLUENZA VACCINE (#1) 2025 COVID-19 Vaccine ( - season) 04/08/202512/2020 Insurance MEDICARE PART A AND B [email or web address]
== END 2025-06-27 12:36 | disposition home or self-care (01) ==
LOC: CHSLAB 12:36
PROVIDERS: PCP Family Medicine; Visit Provider Physician Assistant
DX: D64.9 Anemia, unspecified (principal)
CPT/HCPCS: 36415; 82607; 83540; 83550

== ENCOUNTER 2025-07-01 13:07 | Outpatient (CLI) | payer MEDICARE, OTHER, SELFPAY ==
--- OUTSIDE RECORDS SUMMARY | 2025-07-01 15:12 | XMS_ITS ---
Author Organization [facility] [address] Address [address] [place] [address] Care Team Providers Care Contact Center Assistant Name Role Phone Liliana May MD Primary Care Provider Moose Singleton MD Unavailable [phone] Active Problems Problem Noted Date Diagnosed Date Primary hypertension 04/05/2025 Assessment & Plan (04/05/2025 10:45 AM CDT): Chronic and stable. Continue metoprolol, losartan Mixed hyperlipidemia 04/05/2025 Assessment & Plan (04/05/2025 10:45 AM CDT): Chronic and stable. Continue pravastatin Atherosclerosis of [place] ar teries of extremities with intermittent claudication, [...]
--- OUTSIDE RECORDS SUMMARY | 2025-07-01 15:12 | XMS_ITS | Clinical Summary ---
Author Organization [facility] [address] Address [address] [place] [address] Care Team Providers Care Machines Technician Name Role Phone Liliana May MD Primary Care Provider Moose Singleton MD Unavailable [phone] Allergies Active Allergy Reactions Criticality Noted Date [...] Chronic and stable. Continue pravastatin Atherosclerosis of [place] ar teries of extremities with intermittent claudication, [...] Description 04/03/2025 11:00 AM CDT Ancillary Procedure [facility] Vascular and Vein Surgery at [address] [place] [address] 04/03/2025 9:30 AM CDT Office Visit [facility] Vascular at [address] [place] [phone] Tasia Rosa NP Atherosclerosis of [place] arteries of extremities with intermittent claudication, right leg (Primary Dx); Primary hypertension; Mixed hyperlipidemia 04/03/2025 Orders Only [facility] Vascular at [address] [place] [phone] Scot Davies MD Atherosclerosis of [place] arteries of extremities with intermittent claudication, right leg (Primary Dx) from Last 3 Months Immunizations Immunization Administration Dates Next Due Influenza, Unspecified 05/14/2021 [employer] ([employer]) SARS-CoV-2 Vaccination 11/10/2020 Surgical History Surgery [...] Used Date Smoking Tobacco: Former Cigarettes 0.4 57.9 S tarted: 1968 Smokeless Tobacco: Never Tobacco [...] CDT Gender Identity Male 09/04/2024 11:22 AM BONUS CLERK Sexual Orientation Straight 09/04/2024 11 :22 AM BONUS CLERK Last Filed Vital Signs Vital Sign Reading [...] Completed 10/01/2021 Medical Devices Implanted Type Area Supervisor Corduroy Cutting Device Identifier Shelf Expiration Date Model / Serial / Lot Stent N/A: Heart Procedures Procedure Name Priority Date/Time Associated Diagnosis Comments US ARTERIAL DOPPLER LOWER EXTREMITY BILATERAL Schedule Routine, Read Routine (OP Routine) 04/03/2025 11:28 AM CDT Atherosclerosis of [place] arteries of extremities with intermittent claudication, right leg CTA ABDOMINAL AORTA AND BILATERAL ILIOFEMORAL RUNOFF Schedule Routine, Read Routine (OP Routine) 10/01/2021 10:38 AM BONUS CLERK 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 [address] Lower Extremity Arterial Doppler Report Patient Name: CHILO JI E : 1950 Study Date: 04/03/2025 10:11:00 AM Sex: M Gunstock Spray Unit Adjuster: Gay Corbett RVT Location: [facility] Ref [...] mmHg Lt Calf Pressure 108 mmHg Rt CROCHETER HAND Pressure 80 mmHg Lt CROCHETER HAND Pressure 111 mmHg Rt DPA Pressure 66 [...] MD - 04/04/2025 Vascular & Vein Surgery [address] [place] [address] Lower Extremity Arterial Doppler Report Patient Name: CHILO JI E : 1950 Study Date: 04/03/2025 10:11:00 AM Sex: M Gunstock Spray Unit Adjuster: Gay Corbett RVT Location: [facility] Ref Provider: TASIA ROSA Quality: Adequate Order [...] mmHg Lt Calf Pressure 108 mmHg Rt CROCHETER HAND Pressure 80 mmHg Lt CROCHETER HAND Pressure 111 mmHg Rt DPA Pressure 66 [...] Scot Davies MD 04/04/2025 12:47:35 PM CDT us Tasia Rosa ENRICHMENT DIRECTOR IMG US PROCEDURES Final R esult * CTA Abdominal Aorta And Bilateral Iliofemoral Runoff (10/01/2021 10:38 AM BONUS CLERK) Anatomical Region Laterality Modality Body Bilateral Computed Tomogra phy 10/01/2021 11:2 6 AM BONUS CLERK Impressions 10/01/2021 2:02 PM BONUS CLERK 1. Right lower extremity: There is three-vessel [...] compatible with right heart failure. Dictated by: Koif Banda M.D. The radiology attending physician has personally reviewed this study, and had reviewed and/or edited this written report and agrees with it. Electronically signed by: Samson Toro M.D. Narrative 10/01/2021 2:02 PM BONUS CLERK EXAMINATION: CT ANGIOGRAPHY OF THE ABDOMEN, PELVIS, [...] Recently Relevant to Health Maintenance Insurance MEDICARE [email or web address] MEDICARE FOR LIFE MEDICARE FOR LIFE Advance Directives For more information, please contact: [phone] * Full Code (Latest Code Status on File) Date Activated Date Inactivated Comments 10/16/2021 7:39 PM 10/18/2021 2:11 PM * Full Code Date Activated Date Inactivated Comments 10/09/2021 4:36 PM 10/11/2021 8:52 PM Care Teams Machines Technician Relationship Specialty Start Date End Date Rostovtseva, Liliana Y., MD [address] [place] [address] PCP - General Family Medicine 01/01/21 Moose Singleton MD [address] [place] [address] Consulting Physician Otolaryngology 09/27/21
--- OUTSIDE RECORDS SUMMARY | 2025-07-01 15:12 | XMS_ITS | Clinical Summary ---
Author Organization [facility] Address [address] [place] [address] Care Team Providers Care Actuarial Consultant Name Role Phone Unavailable Primary Care Provider [...]
--- OUTSIDE RECORDS SUMMARY | 2025-07-01 15:12 | XMS_ITS | Clinical Summary ---
Author Organization [facility] Address [address] [facility] [place] [address] Phone Care Team Providers Care Agriculture Sales Account Manager Name Role Phone Unavailable Primary Care [...] Sex Assigned at Male 07/05/2024 10:59 AM MANAGER IN TRAINING Legal Sex Male 1:57 PM MANAGER IN TRAINING Gender Identity Male 07/05/2024 10:59 AM MANAGER IN TRAINING Sexual Orientation Straight 07/05/2024 10 :59 AM MANAGER IN TRAINING Last Filed Vital Signs Vital Sign Reading Time Taken Comments Blood Pressure 118/76 07/12/2024 10:06 AM MANAGER IN TRAINING Pulse 83 07/12/2024 10:06 AM MANAGER IN TRAINING Temperature - - Respiratory Rate - - Oxygen Saturation 97% 07/12/2024 10:06 AM MANAGER IN TRAINING Inhaled Oxygen Concentration - - Weight 27.8 kg (61 lb 3.2 oz) 07/12/2024 10:06 A M MANAGER IN TRAINING Height 182.9 cm (6') 07/12/2024 10:06 AM MANAGER IN TRAINING Body Mass Index 8.3 07/12/2024 10:06 AM MANAGER IN TRAINING Plan of Treatment Health Maintenance Due Date [...] 04/08/202512/2020 Insurance MEDICARE PART A AND B [employer]
== END 2025-07-01 13:08 | disposition home or self-care (01) ==
LOC: CHSLAB 13:08
PROVIDERS: PCP Family Medicine; Visit Provider Physician Assistant
DX: D64.9 Anemia, unspecified (principal)
CPT/HCPCS: 82272

== ENCOUNTER 2025-07-12 12:21 | Outpatient (CLI) | payer MEDICARE, OTHER, SELFPAY ==
--- NOTE | ~2025-07-12 | CT_ITS ---
EXAMINATION: CT lung screening DATE: 07/12/2025 12:45 INDICATION: Personal history of nicotine dependence TECHNIQUE: Computed tomography (CT) of the chest was performed without intravenous contrast. The dose-length product was 71.24 mGy-cm. Automated exposure control and iterative reconstruction technique were employed. COMPARISON: CT dated 07/15/2024 FINDINGS: Severe emphysema with bilateral upper lobe scarring. In the left upper lobe there is a 11 mm irregular shaped nodule. Also in the left upper lobe there is a 1.9 cm irregular shaped mass containing air bronchograms. There is a densely calcified mass in the right upper lobe likely chronic granulomatous disease. In the superior segment of the right lower lobe there is a 1.7 cm mass. There are multiple smaller nodules in both lungs. Heart size normal. There is atherosclerosis of the aorta and coronary arteries. No acute osseous abnormality. There is moderate thoracic spondylosis with accentuated kyphosis. Small pericardial effusion. Small left pleural effusion. IMPRESSION: 1. Lung RADS category 4B, very suspicious: Recommend percutaneous CT-guided biopsy or pet/CT scan. Reviewed, dictated and finalized at location I. [facility] PHYSICAL EDUCATION INSTRUCTOR IMPRESSION: 1. Lung RADS category 4B, very suspicious: Recommend percutaneous CT-guided bio psy or pet/CT scan.
--- OUTSIDE RECORDS SUMMARY | 2025-07-12 12:25 | XMS_ITS ---
Author Organization [facility] [address] Address [address] [place] [address] Care Team Providers Care Guard Lieutenant Name Role Phone Liliana May MD Primary Care Provider Moose Singleton MD Unavailable [phone] Active Problems Problem Noted Date Diagnosed Date Primary hypertension 04/05/2025 Assessment & Plan (04/05/2025 10:45 AM CDT): Chronic and stable. Continue metoprolol, losartan Mixed hyperlipidemia 04/05/2025 Assessment & Plan (04/05/2025 10:45 AM CDT): Chronic and stable. Continue pravastatin Atherosclerosis of [place] ar teries of extremities with intermittent claudication, [...]
--- OUTSIDE RECORDS SUMMARY | 2025-07-12 12:25 | XMS_ITS | Clinical Summary ---
Author Organization [facility] [address] Address [address] [place] [address] Care Team Providers Care Dredge Hand Name Role Phone Liliana May MD Primary Care Provider Moose Singleton MD Unavailable [phone] Allergies Active Allergy Reactions Criticality Noted Date [...] Chronic and stable. Continue pravastatin Atherosclerosis of [place] ar teries of extremities with intermittent claudication, [...] Administration Dates Next Due Influenza, Unspecified 05/14/2021 [employer] ([employer]) SARS-CoV-2 Vaccination 11/10/2020 Surgical History Surgery [...] CDT Gender Identity Male 09/04/2024 11:22 AM TIRE TRIMMER HAND Sexual Orientation Straight 09/04/2024 11 :22 AM TIRE TRIMMER HAND Last Filed Vital Signs Vital Sign Reading [...] Fall Risk Assessment 10/18/2022 10/18/2021 Covid-19 Vaccine (2024-09 6 season) 2025 07/15/2021, 11/10/2020 Influenza Vaccine (#1) 2025 , 05/14/2021, 05/05/2020, Additional history exists DTaP/Tdap/Td Vaccine (2 - Td or Tdap) 03/02/2026 03/02/2016 Pneumococcal vaccine 65+ Completed 02/28/2018, 12/07 Zoster Vaccine Completed 05/06/2018, 02/28/2018 Abdominal Aortic Aneurysm (A AA) Screen Completed 10/01/2021 Medical Devices Implanted Type Area Sas Architect Device Identifier Shelf Expiration Date Model / Serial / Lot Stent N/A: Heart Procedures Procedure Name Priority Date/Time Associated Diagnosis Comments CTA ABDOMINAL AORTA AND BILATERAL ILIOFEMORAL RUNOFF Schedule Routine, Read Routine (OP Routine) 10/01/2021 10:38 AM TIRE TRIMMER HAND FOM (cancer of floor of mouth) ([facility]) from Last 3 Months or Most Recently Relevant to Health Maintenance Results * CTA Abdominal Aorta And Bilateral Iliofemoral Runoff (10/01/2021 10:38 AM TIRE TRIMMER HAND) Anatomical Region Laterality Modality Body Bilateral Computed Tomogra phy 10/01/2021 11:2 6 AM TIRE TRIMMER HAND Impressions 10/01/2021 2:02 PM TIRE TRIMMER HAND 1. Right lower extremity: There is [...] Samson Toro M.D. Narrative 10/01/2021 2:02 PM TIRE TRIMMER HAND EXAMINATION: CT ANGIOGRAPHY OF THE ABDOMEN, [...] Recently Relevant to Health Maintenance Insurance MEDICARE [employer] MEDICARE FOR LIFE MEDICARE FOR LIFE Advance Directives For more information, please contact: [phone] * Full Code (Latest Code Status on File) Date Activated Date Inactivated Comments 10/16/2021 7:39 PM 10/18/2021 2:11 PM * Full Code Date Activated Date Inactivated Comments 10/09/2021 4:36 PM 10/11/2021 8:52 PM Care Teams Dredge Hand Relationship Specialty Start Date End Date Liliana May MD [address] [place] [address] PCP - General Family Medicine 01/01/21 Moose Singleton MD [address] [place] [address] Consulting Physician Otolaryngology 09/27/21
--- OUTSIDE RECORDS SUMMARY | 2025-07-12 12:25 | XMS_ITS | Clinical Summary ---
Author Organization [facility] Address [address] [place] [address] Care Team Providers Care Carpenter Assistant Name Role Phone Unavailable Primary Care [...]
== END 2025-07-12 12:22 | disposition home or self-care (01) ==
PROVIDERS: PCP Family Medicine; Visit Provider Nurse Practitioner Family
DX: Z12.2 Encounter for screening for malignant neoplasm of respiratory organs (principal); Z87.891 Personal history of nicotine dependence; R91.8 Other nonspecific abnormal finding of lung field
CPT/HCPCS: 71271